=== PATIENT | female | born 1985 | race Caucasian/White ===

== ENCOUNTER 2018-03-10 21:45 | Emergency (ER) | payer SELFPAY ==
[2018-03-10 21:46] VITALS: BP 195/121; PULSE 86; RESP 18; TEMP 36.8; O2SAT 99; BMI 32.3
[2018-03-10 22:26] VITALS: BP 137/114; PULSE 94; RESP 19; O2SAT 97
--- NOTE | 2018-03-10 23:21 | ED.VISSUMM ---
- ER Visit Summary Date of Service: 03/10/18 Chief Complaint: Headache History of Present Illness: The patient is a 32 F with a headache that started earlier today. Around 6 PM she checked her blood pressure and it was high. She had similar symptoms in the past about a year ago and was treated in the emergency department and sent home. She was on home medications but lost her doctor secondary to insurance reasons and is not currently on blood pressure medications. Her blood pressure normally runs in the 130-150/80-90 range. Denies any other associated symptoms. She has had some nausea but denies any other symptoms. Physical Examination: Blood pressure 195/121. Otherwise vitals unremarkable. Head atraumatic. Neck nontender. HEENT exam unremarkable. Cranial nerves grossly intact. Heart regular. Lungs clear. Abdomen soft. Moves all extremities. Normal strength and sensation. Normal cerebellar testing. NIH stroke scale is 0. Skin is normal. Test Results: Patient declined any testing including CT had and laboratory studies. She declined secondary to cost reasons. I advised her that it would be standard care to obtain these tests with her blood pressure this high and with having symptoms. Emergency Department Course and Treatment: Patient was treated with labetalol and will reassess. Repeat blood pressure was 155/101. This represents a 20% reduction. Headache has improved. Patient would like to be discharged. Will start her on HCTZ. I advised her that she will need screening blood work and follow-up with her regular doctor. Patient voiced understanding and agreement. Will return for any new or worsening issues. Treatment Plan: As above Disposition: Discharged Impression: 1. Hypertension 2. Headache This note was generated with [employer] dictation software. It may contain incorrect words, spelling, and punctuation that were not noted in review of the chart prior to signing ED Disposition - Plan for ED Patient: Chief Complaint: Hypertension Referrals: Care Physician,No Primary [Primary Care Provider] -
--- NOTE | 2018-03-10 23:47 | ED.DEP ---
ED Disposition - Plan for ED Patient: Chief Complaint: Hypertension Instructions: ED Hypertension New Begin Tx Prescriptions: Hydrochlorothiazide [Hctz] 25 mg PO DAILY 30 Days #30 tab Referrals: Care Physician,No Primary [Primary Care Provider] -
[2018-03-10 23:57] VITALS: BP 165/105; PULSE 76; RESP 16; O2SAT 98
--- NOTE | 2018-03-10 23:58 | ED.RN ---
REVIEWED D/C INSTRUCTIONS, FOLLOW UP CARE, PRESCRIPTION, AND S/S THAT WOULD WARRANT A RETURN TO THE ED WITH PT. PT VERBALIZED AN UNDERSTANDING AND DENIES FURTHER QUESTIONS FOR THIS RN. PT SKIN P/W/D, RESP EVEN AND UNLABORED, PT A&O X 3, NO DISTRESS NOTED. PT AMBULATED OUT OF ED, GAIT STEADY.
== END 2018-03-11 00:01 | disposition home or self-care (01) ==
LOC: ED 23:20
PROVIDERS: Emergency Provider Emergency Medicine
DX: R51 Headache (principal); I10 Essential (primary) hypertension; F17.210 Nicotine dependence, cigarettes, uncomplicated; R11.0 Nausea
CPT/HCPCS: 96374; 99283; A4216

== ENCOUNTER 2018-03-12 06:10 | Emergency (ER) | payer SELFPAY ==
[2018-03-12 06:12] VITALS: BP 183/114; PULSE 104; RESP 20; TEMP 36.8; O2SAT 97; BMI 34.7
--- NOTE | 2018-03-12 06:21 | EKG12_ITS ---
Test Reason : PALPS Blood Pressure : / mmHG Vent. Rate : 090 BPM Atrial Rate : 090 BPM P-R Int : 134 ms QRS Dur : 086 ms QT Int : 394 ms P-R-T Axes : 076 026 047 degrees QTc Int : 481 ms Normal sinus rhythm Prolonged QT Abnormal ECG Confirmed by CLAUDE CONNOLLY, HELEN ([id number]), magazine editor STEFANIA RESTREPO ([id number]) on 03/15/2018 1:52:59 PM Referred By: THERESA Confirmed By:HELEN ARCE MD
--- NOTE | 2018-03-12 06:21 | CT_ITS ---
STUDY: CT BRAIN WITHOUT CONTRAST REASON FOR EXAM: Female, 32 years old. Uncontrolled hypertension RADIATION DOSAGE (If Supplied By Facility): CTDIvol = ( 44.99 ) mGy, DLP = ( 678 ) mGycm TECHNIQUE: Transaxial CT imaging of the brain was performed without administration of intravenous contrast material. Individualized dose optimization techniques were used for this CT. COMPARISON: None. FINDINGS: Normal soft tissue structures. Normal calvarium. Normal size ventricles and extra-axial spaces for the patient's age. Normal white matter tracts of the cerebral hemispheres. Normal basal ganglia and thalami. Normal brainstem. Normal cerebellum. There is no intracranial hemorrhage. There are no findings of an acute ischemic infarction. Normal visualized paranasal sinuses. CT/Brain/Head without Contrast IMPRESSION: Normal unenhanced CT scan of the brain. No acute findings in the brain Electronically Signed: Delfin Villanueva, at 7:14 EDT Tel , Service support ,
[2018-03-12 06:29] LABS: Absolute Lymphocyte Count 3.69 X10^3/ul (0.83-4.51); Absolute Neutrophil Count 4.2 X10^3/uL (2.0-7.7); Basophil# 0.04 X10^3/uL; Basophil% 0.5 % (0-1); Eosinophil# 0.09 X10^3/uL; Hematocrit 43.5 % (37-47); Hemoglobin 14.8 g/dl (12.0-15.0); Lymphocyte # 3.69 X10^3/ul (4.0); Lymphocyte % 42.8 % (19-41); Mean Corpuscular Hgb 30.2 pg (27.0-32.0); Mean Corpuscular Volume 88.8 fL (81-99); Mean Platelet Vol. 10.2 fl (6.2-12.0); Monocyte# 0.64 X10^3/uL; Monocyte% 7.4 % (0-10); Neutrophil # 4.16 X10^3/uL (2.7-7.7); Neutrophil % 48.2 % (47-70); Platelet Count 351 K/mm3 (150-450); RBC Distribution Width CV 14.2 % (11.6-14.6); RBC Distribution Width SD 45.9 fl (35.1-43.9); White Blood Count 8.6 K/mm3 (4.4-11.0)
[2018-03-12 06:30] LABS: POSITIVE COUNT NO; POSITIVE DIFFERENTIAL NO; POSITIVE MORPHOLOGY NO
[2018-03-12 06:38] VITALS: BP 159/119; PULSE 87; RESP 16; O2SAT 98
[2018-03-12 06:44] LABS: Anion Gap 9 (5-15); BUN 8 mg/dL (7-18); Calcium,Total 8.4 mg/dL (8.5-10.1); Chloride 109 mmol/L (98-107); EST Glomerular Filtration Rate 88 mL/min (>60); Est Glom Filt Rate - Afr Amer 106 mL/min (>60); Estimated Creatinine Clearance 79.11 ml/min; Glucose 78 mg/dL (74-106); Sodium Level 142 mmol/L (136-145)
[2018-03-12] MEDS: Ketorolac 30 MG/ML Syringe IV (07:31)
--- NOTE | 2018-03-12 07:32 | ED.DCSUM_ITS ---
- ER Visit Summary Date of Service: 03/12/18 Chief Complaint: Palpitations, hypertension, headache History of Present Illness: The patient is a 32 F worsening palpitations this morning with elevated blood pressure and headache. Seen 2 days ago in the ED for elevated blood pressure. Patient states given IV blood pressure medicine started on hydrochlorothiazide. She is previously on lisinopril and hydrochlorothiazide in the past however lost insurance therefore cannot continue. Given a doctor to follow-up with however not called. There is no syncopal episodes. No chest pains. No nausea or vomiting. No urinary symptoms. Records reviewed from 2 days ago, reported that patient did not want labs are imagings when they were recommended due to financial concerns. Discussed with the patient, due to her symptoms she is in agreement today. Physical Examination: General: Alert and oriented ?3, no acute distress HEENT: Normocephalic, atraumatic. Moist mucosa membranes Neck: supple, nontender. No meningismus Cardiovascular: Regular rate and rhythm, no murmurs Respiratory: Normal breath sounds, symmetric, no distress Abdomen: Soft, nontender, nondistended Extremities: Nontender, no edema, pulses intact ?4 Neuro: no focal neurological deficits. Test Results: EKG: Sinus rate of [address] or T-wave changes. Hemoglobin 14.8. Creatinine 0.80. CT head no acute process. Emergency Department Course and Treatment: Patient had blood pressure 183/114 on arrival. She is given labetalol 10 mg IV. A pressure 1 and 151/101. Basic labs normal. EKG with palpitations normal. CT head due to headaches were negative. She had no meningismal findings. She given Toradol for headache symptoms. I did add lisinopril to her regimen which was her previous medications. She will take both lisinopril and hydrochlorothiazide, she will keep records of her blood pressure she will follow-up with physician as an outpatient. All questions are answered. Treatment Plan: [] Disposition: Discharge Impression: 1. Elevated blood pressure 2. Cephalgia 3. Palpitations This note was generated with [employer] software. It may contain incorrect words, spelling, and punctuation that were not noted in review of the chart prior to signing ED Disposition - Plan for ED Patient: Disposition: Home or Assisted Living Chief Complaint: Palpitations Diagnosis: Elevated blood pressure, Cephalgia, Palpitations Instructions: ED Palpitations, Discharge Instructions for High Blood Pressure ( Hypertension), Self-Care for Headaches Prescriptions: Lisinopril 20 mg PO DAILY #30 tablet Referrals: Care Physician,No Primary [Primary Care Provider] - Ricardo Antunez DO [STAFF PHYSICIAN] - 3-5 Days
[2018-03-12] MEDS: Lisinopril 20 MG Tablet PO (07:34)
[2018-03-12 08:17] VITALS: BP 138/96; PULSE 65; RESP 16; O2SAT 98
[2018-03-12 08:22] VITALS: BP 143/89; PULSE 85; RESP 16; O2SAT 98
== END 2018-03-12 08:23 | disposition home or self-care (01) ==
PROVIDERS: Emergency Provider Emergency Medicine
DX: I10 Essential (primary) hypertension (principal); R51 Headache; R00.2 Palpitations; Z72.0 Tobacco use
CPT/HCPCS: 70450; 80048; 85025; 93005; 96374; 96375; 99285; A4216

== ENCOUNTER 2018-05-31 12:35 | Emergency (ER) | payer SELFPAY ==
[2018-05-31 12:36] VITALS: BP 184/115; PULSE 113; RESP 18; TEMP 36.6; O2SAT 99; BMI 30.7
[2018-05-31 12:50] VITALS: BP 164/100; PULSE 83; RESP 14; O2SAT 98
--- NOTE | 2018-05-31 12:58 | EKG12_ITS ---
Test Reason : CP Blood Pressure : / mmHG Vent. Rate : 099 BPM Atrial Rate : 099 BPM P-R Int : 116 ms QRS Dur : 086 ms QT Int : 382 ms P-R-T Axes : 078 035 026 degrees QTc Int : 490 ms Normal sinus rhythm Nonspecific ST abnormality Prolonged QT Abnormal ECG Confirmed by JENNIFER CONNOLLY, OLGA ([id number]), editor managing newspaper STEFANIA RESTREPO ([id number]) on 06/04/2018 2:13:56 PM Referred By: EDPHS Confirmed By:OLGA RODRIGUEZ MD
--- NOTE | 2018-05-31 13:00 | RAD_ITS ---
STUDY: X-RAY CHEST REASON FOR EXAM: Female, 33 years old. Chest pain and cough TECHNIQUE: Single AP portable view of the chest. COMPARISON: 2016 FINDINGS: EKG leads overlie the chest The lungs are clear and expanded. There is no demonstrated pleural abnormality. Normal size heart. Normal mediastinum and eliana. Normal visualized pulmonary arteries. Normal visualized aortic arch and descending thoracic aorta. Normal visualized thoracic spine. Normal visualized ribs, clavicles, and shoulders. There is no demonstrated abnormality of the visualized soft tissue structures of the upper abdomen. RAD/Chest 1 View (Portable) IMPRESSION: Normal x-ray examination of the chest. Electronically Signed: Beny Toure MD at 13:17 EDT , Service support ,
[2018-05-31] MEDS: Ketorolac 30 MG/ML Syringe 15 MG IV (13:14)
[2018-05-31 13:18] LABS: Absolute Lymphocyte Count 2.58 X10^3/ul (0.83-4.51); Absolute Neutrophil Count 4.6 X10^3/uL (2.0-7.7); Basophil# 0.03 X10^3/uL; Basophil% 0.4 % (0-1); Eosinophil# 0.03 X10^3/uL; Eosinophils% 0.4 % (0-5); Hematocrit 42.4 % (37-47); Hemoglobin 14.1 g/dl (12.0-15.0); Lymphocyte # 2.58 X10^3/ul (4.0); Lymphocyte % 33.3 % (19-41); Mean Corp Hgb Conc 33.3 g/gl (32-36); Mean Corpuscular Hgb 28.7 pg (27.0-32.0); Mean Corpuscular Volume 86.4 fL (81-99); Mean Platelet Vol. 10.4 fl (6.2-12.0); Monocyte# 0.55 X10^3/uL; Monocyte% 7.1 % (0-10); Neutrophil # 4.56 X10^3/uL (2.7-7.7); Neutrophil % 58.8 % (47-70); POSITIVE COUNT NO; POSITIVE DIFFERENTIAL NO; POSITIVE MORPHOLOGY NO; Platelet Count 309 K/mm3 (150-450); RBC Distribution Width CV 13.8 % (11.6-14.6); RBC Distribution Width SD 43.3 fl (35.1-43.9); Red Blood Count 4.91 M/mm3 (4.2-5.4); White Blood Count 7.8 K/mm3 (4.4-11.0)
[2018-05-31 13:32] LABS: Anion Gap 6 (5-15); BUN 7 mg/dL (7-18); BUN/Creat Ratio 8.5 RATIO (10-20); Calcium,Total 9.2 mg/dL (8.5-10.1); Chloride 109 mmol/L (98-107); Creatinine, Serum 0.82 mg/dL (0.55-1.02); EST Glomerular Filtration Rate 85 mL/min (>60); Est Glom Filt Rate - Afr Amer 102 mL/min (>60); Estimated Creatinine Clearance 86.99 ml/min; Glucose 107 mg/dL (74-106); Potassium 3.3 mmol/L (3.5-5.1); Sodium Level 139 mmol/L (136-145)
[2018-05-31 13:54] LABS: D-Dimer Quantitative (DVT/PE) 0.34 FEU/ug/m (0.27-0.49)
[2018-05-31 15:02] VITALS: BP 138/80; PULSE 90; RESP 14; O2SAT 99
--- NOTE | 2018-05-31 15:12 | ED.DCSUM_ITS ---
- ER Visit Summary Date of Service: 05/31/18 Chief Complaint: Chest pain History of Present Illness: The patient is a 33 F who presents with chest pain that started earlier today it is non-pleuritic and sharp and stabbing it is right-sided parasternal region. No radiation. No fever chills no cough no shortness of breath. Physical Examination: Not appear in acute distress. Moist mucous membranes, no obvious facial deformity No C-spine tenderness supple neck. Regular rate and rhythm without any obvious murmurs there is right-sided chest wall pain to palpation. Clear lungs bilaterally speaking in full sentences without any obvious respiratory distress Abdomen soft and nontender no guarding or rebound Moves all extremities without any difficulty or pain. Skin does not show any obvious rashes or lesions, no trauma. Alert oriented ?3 with no gross focal deficit Emergency Department Course and Treatment: Emergency department workup including x-ray and d-dimer are negative. She has a normal troponin and normal EKG with a heart score 0. She will be discharged with a inflammatories. Impression: Chest wall pain This note was generated with [employer] dictation software. It may contain incorrect words, spelling, and punctuation that were not noted in review of the chart prior to signing ED Disposition - Plan for ED Patient: Disposition: Home or Assisted Living Chief Complaint: Chest Pain Instructions: ED Strain Chest Wall Ch Prescriptions: Naproxen [Naprosyn] 500 mg PO BID PRN #20 tab Referrals: Care Physician,No Primary [Primary Care Provider] - 3-5 Days
[2018-05-31 15:42] VITALS: BP 146/80; PULSE 80; RESP 14; O2SAT 99
== END 2018-05-31 15:44 | disposition home or self-care (01) ==
PROVIDERS: Emergency Provider Emergency Medicine
DX: R07.89 Other chest pain (principal); I10 Essential (primary) hypertension; Z72.0 Tobacco use
CPT/HCPCS: 71045; 80048; 84484; 85025; 85379; 93005; 96374; 99284; J7030; A4216

== ENCOUNTER 2019-01-02 19:25 | Emergency (ER) | payer SELFPAY ==
[2019-01-02] VITALS (9 sets, daily range): BP systolic 154–222; BP diastolic 90–119; PULSE 79–127; RESP 16–25; TEMP 36.7; O2SAT 96–99; BMI 31.6
--- NOTE | 2019-01-02 19:34 | EKG12_ITS ---
Test Reason : Blood Pressure : / mmHG Vent. Rate : 122 BPM Atrial Rate : 122 BPM P-R Int : 128 ms QRS Dur : 086 ms QT Int : 336 ms P-R-T Axes : 074 050 057 degrees QTc Int : 478 ms Sinus tachycardia Possible Left atrial enlargement Nonspecific ST and T wave abnormality Abnormal ECG Confirmed by CLAUDE CONNOLLY, HELEN ([id number]), advertising editor STEFANIA RESTREPO ([id number]) on 01/06/2019 1:48:54 PM Referred By: CONNIE Confirmed By:HELEN ARCE MD
[2019-01-02] MEDS: cloNIDine HCl 0.1 MG Tablet 0.2 MG PO ×2 (20:25→21:36)
--- NOTE | 2019-01-02 20:26 | CT_ITS ---
STUDY: CT BRAIN WITHOUT CONTRAST REASON FOR EXAM: Female, 33 years old. Headache and elevated blood pressure. RADIATION DOSAGE (If Supplied By Facility): CTDIvol = ( 44.99 ) mGy, DLP = ( 731.43 ) mGycm TECHNIQUE: Transaxial CT imaging of the brain was performed without administration of intravenous contrast material. Individualized dose optimization techniques were used for this CT. COMPARISON: Prior brain CT exam of March 12, 2018 FINDINGS: Normal soft tissue structures. Normal calvarium. Normal size ventricles and extra-axial spaces for the patient's age. Normal white matter tracts of the cerebral hemispheres. Normal basal ganglia and thalami. Normal brainstem. Normal cerebellum. There is no intracranial hemorrhage. There are no findings of an acute ischemic infarction. Normal visualized paranasal sinuses. CT/Brain/Head without Contrast IMPRESSION: Normal unenhanced CT scan of the brain. Electronically Signed: Rebecca Galvan MD at 21:13 EST , Service support ,
--- NOTE | 2019-01-02 20:27 | ED.VISSUMM ---
- ER Visit Summary Date of Service: 01/02/19 Chief Complaint: High blood pressure History of Present Illness: The patient is a 33 F presenting with high blood pressure. Patient states she has been taking her blood pressure at home and has been running with a systolic of 160-180. She states yesterday was 173/134. She has had intermittent headaches. She denies chest pain. She states she is supposed to be on hydrochlorothiazide/lisinopril but has not had insurance for several months. States she has not been taking these medications for several months. She has a history of SVT, hypertension. She is a smoker. She denies chest pain or shortness of breath. Physical Examination: Blood pressure 222/113, temperature 98, heart rate 127, respiratory rate 17. Pulse ox 99% on room air. Alert no acute distress. HEENT exam is unremarkable. Neck is supple. Lungs are clear and equal bilaterally. Heart is regular rate and rhythm. Abdomen is soft nontender nondistended. Extremities are unremarkable. Skin is warm and dry. No focal neurologic deficit. Normal strength and sensation Remainder of exam is unremarkable. Emergency Department Course and Treatment: Patient given IV fluids, clonidine. CT head shows no acute process. EKG is sinus rate of 122. On reevaluation her blood pressure is 180/110, heart rate 109. She was given additional dose of clonidine. On reevaluation, her blood pressure is 172/90, heart rate 80. Patient is resting comfortably in the ED. She is given prescription for hydrochlorothiazide/lisinopril. She is advised to follow-up with Rema Tello. Advised importance of follow-up. Patient understands. Advised return to ED if worsening complaints. Disposition: Discharge home Impression: Hypertension This note was generated with [employer] dictation software. It may contain incorrect words, spelling, and punctuation that were not noted in review of the chart prior to signing ED Disposition - Plan for ED Patient: Instructions: ED HTN Established Prescriptions: Lisinopril/Hydrochlorothiazide [Lisinopril-Hctz 10-12.5 mg Tab] 1 each PO DAILY #30 tablet Referrals: Rema Tello [NON-STAFF] -
[2019-01-02] MEDS: 0.9% Normal Saline 1,000 ML 999 ML IV (20:41)
--- NOTE | 2019-01-02 22:34 | ED.DEP ---
ED Disposition - Plan for ED Patient: Instructions: ED HTN Established Prescriptions: Lisinopril/Hydrochlorothiazide [Lisinopril-Hctz 10-12.5 mg Tab] 1 each PO DAILY #30 tablet Referrals: Rema Tello [NON-STAFF] -
== END 2019-01-02 22:53 | disposition home or self-care (01) ==
LOC: ED 19:53
PROVIDERS: Emergency Provider Emergency Medicine
DX: I10 Essential (primary) hypertension (principal); I47.1 Supraventricular tachycardia; F17.200 Nicotine dependence, unspecified, uncomplicated; Z79.899 Other long term (current) drug therapy
CPT/HCPCS: 70450; 93005; 96360; 99283; J7030

== ENCOUNTER 2019-02-20 01:22 | Emergency (ER) | payer SELFPAY ==
[2019-01-02 19:26] VITALS: BMI 31.6
[2019-02-20 01:23] VITALS: BP 179/124; PULSE 92; RESP 20; TEMP 37.3; O2SAT 98; BMI 33.9
--- NOTE | 2019-02-20 02:00 | ED.VISSUMM ---
- ER Visit Summary Date of Service: 02/20/19 Chief Complaint: Cough, sore throat History of Present Illness: The patient is a 33 F with congestion, bilateral ear pain, sore throat for the past 5 days and continuing to worsen. Patient's been taking NyQuil and [facility] cold without improvement. She reports minimal cough. Physical Examination: Blood pressure on arrival is 179/124, temperature 99.1, heart rate 92, respiratory rate 20, pulse ox 98% on room air. Patient is sitting upright in bed. She is nontoxic appearing. Head neck examination reveals TMs to be clear bilaterally. She has minimal sinus tenderness over the frontal and maxillary sinuses. She has 3+ tonsils bilaterally. Uvula is midline. She has bilateral anterior cervical lymphadenopathy. She is tolerating secretions well and has a strong voice. Heart is regular rate and rhythm. Lung sounds are clear. Abdomen is soft nontender. Test Results: [] Emergency Department Course and Treatment: Patient be treated with a course of Zithromax for her pharyngitis. Patient has known history of hypertension and states that she does not have insurance and cannot sign up for insurance until September. She states she makes too much money to go to [facility]. I wrote her a prescription for her blood pressure medication, lisinopril/HCTZ. I have left a phone number with social work to contact her to try to help her get her medications. Treatment Plan: [] Disposition: Discharge Impression: 1. Pharyngitis 2. Hypertension This note was generated with [employer] dictation software. It may contain incorrect words, spelling, and punctuation that were not noted in review of the chart prior to signing ED Disposition - Plan for ED Patient: Disposition: Home or Assisted Living Instructions: ED HTN Established, ED Strep Pharyngitis Poss Prescriptions: Azithromycin [Zithromax] 250 mg PO DAILY #4 tablet Lisinopril/Hydrochlorothiazide [Lisinopril-Hctz 10-12.5 mg Tab] 1 each PO DAILY #30 tablet Referrals: Addie Whaley MD [STAFF PHYSICIAN] -
[2019-02-20] MEDS: Azithromycin 250 MG Tablet 500 MG PO (02:09)
[2019-02-20 02:10] VITALS: BP 160/125; PULSE 96; RESP 17; O2SAT 97
[2019-02-20] MEDS: Lisinopril 10 MG Tablet PO (02:13)
[2019-02-20] MEDS: hydroCHLOROthiazide 12.5mg 12.5 MG PO (02:13)
--- NOTE | 2019-02-20 14:45 | CM.ED ---
SOCIAL WORK REFERRED BY DR. FARIAS FOR RX ASSISTANCE FOLLOW UP CALL MADE TO PATIENT. NO ANSWER. LEFT MESSAGE WITH THIS WORKER'S CALL BACK INFORMATION. GALEN GARCIA, POUCH MAKER, SALES ACCOUNT ASSOCIATE.
== END 2019-02-20 02:15 | disposition home or self-care (01) ==
LOC: ED 02:09
PROVIDERS: Emergency Provider Emergency Medicine
DX: J02.9 Acute pharyngitis, unspecified (principal); I10 Essential (primary) hypertension; R05 Cough; H92.03 Otalgia, bilateral; Z79.899 Other long term (current) drug therapy; Z87.891 Personal history of nicotine dependence
CPT/HCPCS: 99283

== ENCOUNTER 2019-04-13 18:45 | Emergency (ER) | payer SELFPAY ==
[2019-04-13 18:45] VITALS: BP 210/131; PULSE 119; RESP 18; TEMP 36.9; O2SAT 99; BMI 31.8
[2019-04-13 19:05] VITALS: BP 172/114; PULSE 95; RESP 20; O2SAT 99
--- NOTE | 2019-04-13 20:30 | ED.RN ---
AT 2020: PT AND SPOUSE CAME OUT STATING THEY WERE LEAVING. PT WAS NOT SEEN BY MD, DR. STARR WAS ON HER WAY IN TO SEE PT.
--- NOTE | 2019-04-13 20:36 | ED.VISSUMM ---
- ER Visit Summary Date of Service: 04/13/19 patient eloped from the ED prior to evaluation. This note was generated with [employer] dictation software. It may contain incorrect words, spelling, and punctuation that were not noted in review of the chart prior to signing ED Disposition - Plan for ED Patient: Referrals: Care Physician,No Primary [Primary Care Provider] -
== END 2019-04-13 20:20 | disposition left against medical advice (07) ==
PROVIDERS: Emergency Provider Emergency Medicine
DX: I10 Essential (primary) hypertension (principal); Z53.21 Procedure and treatment not carried out due to patient leaving prior to being seen by health care provider
CPT/HCPCS: 99281

== ENCOUNTER 2019-07-30 07:47 | Emergency (ER) | payer SELFPAY ==
[2019-07-30] VITALS (7 sets, daily range): BP systolic 116–195; BP diastolic 83–131; PULSE 74–96; RESP 16–18; TEMP 36; O2SAT 97–100; BMI 30.9
--- NOTE | 2019-07-30 08:06 | EKG12_ITS ---
Test Reason : HYPOGLYCEMIA Blood Pressure : / mmHG Vent. Rate : 086 BPM Atrial Rate : 086 BPM P-R Int : 130 ms QRS Dur : 086 ms QT Int : 400 ms P-R-T Axes : 080 039 029 degrees QTc Int : 478 ms Normal sinus rhythm Possible Left atrial enlargement Borderline ECG Confirmed by KEYLA CONNOLLY, COOPER ([id number]), general expeditor RICARDO ORTIZ ([id number]) on 08/01/2019 10:22:25 A M Referred By: WILLEM Confirmed By:LEIGH RAMIRES MD
--- NOTE | 2019-07-30 08:07 | ED.DCSUM_ITS ---
History of Present Illness Chief Complaint: Hypertension Informant: Patient Onset: - - Chronic hypertension, worse the last for 5 days. Narrative: Patient presents with increased hypertension. She is a history of hypertension but has not had insurance and therefore not taken her medications for quite some time. She checks her blood pressure at home. She states her normal is around 160/110. Last for 5 days her systolic blood pressure has been in the 190s. She states she does not have a headache or vision changes. She feels like she was hit by a truck. This morning she had tingling in both hands and both feet and that prompted her visit today. - Past Medical History (1) Hypertension Status: Chronic Past Medical History - Allergies and Home Meds Allergies/Adverse Reactions: Allergies No Known Allergies Allergy (Verified 04/13/19 18:46) Primary Care Physician: Care Physician,No Primary [Primary Care Provider] - Prior records reviewed: Yes Past Medical History: - - Reviewed Surgical History: hysterectomy Smoking Status: Current every day smoker Review of Systems General: Denies: Chills, Fever Eyes: Denies: Visual changes - bilaterally ENT: Denies: Bilateral ear pain Cardiovascular: Denies: Chest pain, Palpitations Respiratory: Denies: Dyspnea, Cough Gastrointestinal: Denies: Abdominal pain, Nausea, Vomiting Genitourinary: Denies: Dysuria Musculoskeletal: Denies: Neck pain, Back pain Skin: Denies: Wounds Neurological: Reports: Parasthesia. Denies: Headache, Weakness Hematologic: Denies: Easy bruising Allergy: Denies: Uticaria Physical Exam Vital Signs/Narrative: Vital Signs Temp Pulse Resp BP Pulse Ox 07/30/19 07:48 96.8 F L 96 18 192/127 H 99 Inital Vital Signs reviewed: Yes General: Well nourished, Well developed Head: Normocephalic ENT: Moist mucous membranes Neck: Supple Cardiovascular: Regular rate, Regular rhythm Respiratory: No distress, CTA bilaterally Abdomen: Soft, Nontender Extremities: Nontender Skin: Normal color, No rash Neurological: Alert, Oriented x3, Normal Strength Psychological: Normal affect Diagnostic/Tx/Re-eval Impressions Chest X-Ray 07/30/19 08:25 IMPRESSION: Normal x-ray examination of the chest. Electronically Signed: Winston Lamb, at 8:48 EDT , Service support , 07/30/19 08:25 Chest 1 View (Portable) [RAD] Stat Laboratory Results 07/30/19 07/30/19 07/30/19 08:05 08:05 09:10 WBC 8.0 RBC 5.22 Hgb 15.4 H Hct 45.5 MCV 87.2 MCH 29.5 MCHC 33.8 RDW Std Deviation 43.6 RDW Coeff of Shanika 13.7 Plt Count 293 MPV 10.8 Immature Gran % (Auto) 0.100 Neut % (Auto) 62.5 Lymph % (Auto) 30.9 Johnston % (Auto) 5.4 Eos % (Auto) 0.6 Baso % (Auto) 0.5 Absolute Neuts (auto) 5.0 Absolute Lymphs (auto) 2.48 Nucleated RBC % 0 Sodium 139 Potassium 3.4 L Chloride 107 Carbon Dioxide 26.0 Anion Gap 6 BUN 5 L Creatinine 0.81 Estim Creat Clear Calc 87.23 Est GFR (MDRD) Af Amer 103 Est GFR (MDRD) Non-Af 85 BUN/Creatinine Ratio 6.1 L Glucose 82 Calcium 8.9 Urine Color Yellow Urine Clarity Sl. Cloudy Urine pH 7.0 Ur Specific [place] 1.010 Urine Protein Negative Urine Glucose (UA) Normal Urine Ketones Negative Urine Occult Blood Negative Urine Nitrite Negative Urine Bilirubin Negative Urine Urobilinogen Normal Ur Leukocyte Esterase Negative Urine RBC 0 SEEN Urine WBC 0 SEEN Ur Squamous Epith Cells 0-5 SEEN Urine Bacteria 0 SEEN Urine Mucus 0 SEEN - EKG Initial EKG Interpretation: Sinus Rhythm - Sinus at 86 with no acute ischemia. Possible left atrial enlargement is noted. - Medical Decision Making Patient was given 10 of IV labetalol followed by 20 mg. Blood pressure did not significantly change with this. She is given 0.2 mg's of p.o. clonidine. Repeat blood pressure is in the high 150s systolic. Patient was also given p.o. potassium for slightly decreased K. Patient was seen by social work and given resources to help obtain insurance coverage. She reports that she makes too much money to qualify for Medicaid. My suspicion is that she will be over the income limit for Rema Tello. Dr. Petty is the next doc on no doc list. I will speak with his coverage and help arrange follow-up. She will be given a prescription for clonidine and will monitor her blood pressures. ED Disposition - Plan for ED Patient: Disposition: Home or Assisted Living Diagnosis: Hypertension Instructions: HYPERTENSION, New (Begin Treatment) Prescriptions: Clonidine HCl 0.2 mg PO BID #60 tablet Referrals: Maico Petty MD [STAFF PHYSICIAN] - 1 Week
[2019-07-30 08:21] LABS: Absolute Lymphocyte Count 2.48 X10^3/uL (0.83-4.51); Basophil# 0.04 X10^3/uL; Basophil% 0.5 % (0-1); Eosinophil# 0.05 X10^3/uL; Eosinophils% 0.6 % (0-5); Hematocrit 45.5 % (37-47); Hemoglobin 15.4 g/dL (12.0-15.0); Lymphocyte # 2.48 X10^3/ul (4.0); Lymphocyte % 30.9 % (19-41); Mean Corp Hgb Conc 33.8 g/dL (32-36); Mean Corpuscular Hgb 29.5 pg (27.0-32.0); Mean Corpuscular Volume 87.2 fL (81-99); Mean Platelet Vol. 10.8 fl (6.2-12.0); Monocyte# 0.43 X10^3/uL; Monocyte% 5.4 % (0-10); NRBC Flagged by Analyzer 0 % (0-5); Neutrophil # 5.01 X10^3/uL (2.7-7.7); Neutrophil % 62.5 % (47-70); Platelet Count 293 K/mm3 (150-450); RBC Distribution Width CV 13.7 % (11.6-14.6); RBC Distribution Width SD 43.6 fl (35.1-43.9); Red Blood Count 5.22 M/mm3 (4.2-5.4)
--- NOTE | 2019-07-30 08:25 | RAD_ITS ---
STUDY: X-RAY CHEST REASON FOR EXAM: Female, 34 years old. Chest pain. TECHNIQUE: Single AP portable view of the chest. COMPARISON: Comparison is made with prior study dated May 31, 2018. FINDINGS: The lungs are clear and expanded. There is no demonstrated pleural abnormality. Normal size heart. Normal mediastinum and eliana. Normal visualized pulmonary arteries. Normal visualized aortic arch and descending thoracic aorta. Normal visualized thoracic spine. Normal visualized ribs, clavicles, and shoulders. There is no demonstrated abnormality of the visualized soft tissue structures of the upper abdomen. RAD/Chest 1 View (Portable) IMPRESSION: Normal x-ray examination of the chest. Electronically Signed: Winston Lamb, at 8:48 EDT , Service support ,
[2019-07-30 08:41] LABS: Anion Gap 6 (5-15); BUN 5 mg/dL (7-18); BUN/Creat Ratio 6.1 RATIO (10-20); Calcium,Total 8.9 mg/dL (8.5-10.1); Chloride 107 mmol/L (98-107); Creatinine, Serum 0.81 mg/dL (0.55-1.02); EST Glomerular Filtration Rate 85 mL/min (>60); Est Glom Filt Rate - Afr Amer 103 mL/min (>60); Estimated Creatinine Clearance 87.23 ml/min; Glucose 82 mg/dL (74-106); Potassium 3.4 mmol/L (3.5-5.1); Sodium Level 139 mmol/L (136-145)
[2019-07-30 09:16] LABS: Bacteria 0 SEEN /hpf (None Seen); Mucous, Urine 0 SEEN /hpf (<or=2+); Red Blood Cells-Urine 0 SEEN /hpf (0-5); White Blood Cells 0 SEEN /hpf (0-5)
[2019-07-30 09:22] LABS: Color, Urine Yellow (Yellow); Glucose, Dipstick Normal (Normal); Ketone-Dipstick Negative (Negative); Leukocyte Esterase-Dipstick Negative /ul (Negative); Nitrite-Dipstick Negative (Negative); Occult Blood-Urine Negative /ul (Negative); Protein-Dipstick Negative (Negative); Urine Bilirubin Dipstick Negative (Negative); Urine Clarity Sl. Cloudy (Clear); Urine Urobilinogen Normal (Normal)
[2019-07-30 09:28] LABS: Squamous Epithelial Cells - UA 0-5 SEEN /hpf (5-10)
[2019-07-30] MEDS: cloNIDine HCl 0.1 MG Tablet 0.2 MG PO (09:56)
--- NOTE | 2019-07-30 10:39 | CASEMGMT ---
Case Management Progress Note: Referral placed d/t patient not having health insurance and has not been taking antihypertensives, presents to ER with Hypertension. This resume writer met with patient at bedside, introduced self and role. Patient states that she does work but does not have health insurance, states that her work does not offer it. Discussed applying for [employer] and states that her kids have it but she does not qualify for it. This resume writer discussed and provided resources for the following: [facility], [employer], [employer], Given multiple Rx coupon cards, and discussed going on the Medication manufacturers website for coupons/discounts, and also discussed [employer] possibly helping. Patient denied any further questions or concerns. Maryellen Bravo RNCM
== END 2019-07-30 12:22 | disposition home or self-care (01) ==
PROVIDERS: Emergency Provider Emergency Medicine
DX: I10 Essential (primary) hypertension (principal); R20.2 Paresthesia of skin; F17.200 Nicotine dependence, unspecified, uncomplicated; Z79.899 Other long term (current) drug therapy; Z90.710 Acquired absence of both cervix and uterus
CPT/HCPCS: 71045; 80048; 81001; 85025; 93005; 96374; 96376; 99285; A4216

== ENCOUNTER 2019-09-10 13:30 | Emergency (ER) | payer SELFPAY ==
[2019-07-30 07:48] VITALS: BMI 30.9
[2019-09-10 13:31] VITALS: BP 149/107; PULSE 96; RESP 15; TEMP 36.9; O2SAT 100; BMI 28.3
[2019-09-10 13:55] VITALS: RESP 16
--- NOTE | 2019-09-10 14:03 | ED.RN ---
PATIENT STATES DIZZINESS HAS BEEN GOING ON FOR ABOUT 6 DAYS NOW. PATIENT STATES SHE HAS NOT FELT RIGHT SINCE THE END OF . PATIENT STATES SHE HAS NOT HAD AN APPETITE AND HAS LOST 28 LBS SINCE THE END OF .
--- NOTE | 2019-09-10 14:22 | EKG12_ITS ---
Test Reason : DIZZINESS Blood Pressure : / mmHG Vent. Rate : 061 BPM Atrial Rate : 061 BPM P-R Int : 124 ms QRS Dur : 086 ms QT Int : 486 ms P-R-T Axes : 068 021 018 degrees QTc Int : 489 ms Normal sinus rhythm Prolonged QT Abnormal ECG Confirmed by CLAUDE CONNOLLY, HELEN ([id number]), purchasing expeditor RICARDO ORTIZ ([id number]) on 09/16/2019 2:17:46 PM Referred By: ANANT Confirmed By:HELEN ARCE MD
[2019-09-10] MEDS: 0.9% Normal Saline 1,000 ML 1000 ML IV (14:39)
[2019-09-10 14:47] LABS: Red Blood Cells-Urine 0 SEEN /hpf (0-5); White Blood Cells 0 SEEN /hpf (0-5)
[2019-09-10 14:48] LABS: Internal QC Validated? YES +Cl - CLEAR BKGD
[2019-09-10 14:50] LABS: Absolute Lymphocyte Count 2.34 X10^3/uL (0.83-4.51); Absolute Neutrophil Count 3.8 X10^3/uL (2.0-7.7); Basophil# 0.04 X10^3/uL; Basophil% 0.6 % (0-1); Eosinophil# 0.03 X10^3/uL; Eosinophils% 0.5 % (0-5); Hematocrit 43.3 % (37-47); Hemoglobin 14.8 g/dL (12.0-15.0); Lymphocyte # 2.34 X10^3/ul (4.0); Lymphocyte % 35.4 % (19-41); Mean Corp Hgb Conc 34.2 g/dL (32-36); Mean Corpuscular Hgb 29.4 pg (27.0-32.0); Mean Corpuscular Volume 85.9 fL (81-99); Mean Platelet Vol. 11.1 fl (6.2-12.0); Monocyte# 0.42 X10^3/uL; Monocyte% 6.4 % (0-10); NRBC Flagged by Analyzer 0 % (0-5); Neutrophil # 3.77 X10^3/uL (2.7-7.7); Neutrophil % 56.9 % (47-70); Platelet Count 249 K/mm3 (150-450); RBC Distribution Width CV 13.7 % (11.6-14.6); RBC Distribution Width SD 42.8 fl (35.1-43.9); Red Blood Count 5.04 M/mm3 (4.2-5.4); White Blood Count 6.6 K/mm3 (4.4-11.0)
[2019-09-10 14:52] LABS: Pregnancy, Urine Negative Negative
[2019-09-10 14:53] LABS: Color, Urine Yellow (Yellow); Glucose, Dipstick Normal (Normal); Ketone-Dipstick 50 mg/dl (Negative); Leukocyte Esterase-Dipstick Negative /ul (Negative); Nitrite-Dipstick Negative (Negative); Occult Blood-Urine Negative /ul (Negative); Protein-Dipstick Negative (Negative); Specific Gravity, Urine 1.015 (1.002-1.030); Urine Bilirubin Dipstick Negative (Negative); Urine Clarity Sl. Cloudy (Clear); Urine Urobilinogen Normal (Normal)
[2019-09-10 14:56] LABS: Bacteria RARE /hpf (None Seen); Mucous, Urine RARE /hpf (<or=2+); Squamous Epithelial Cells - UA 5-10 SEEN /hpf (5-10)
[2019-09-10 15:06] LABS: ALB/GLOB Ratio 1.1 RATIO (0.9-2.4); AST(SGOT) 9 U/L (15-37); Alanine Aminotransfer ALT/SGPT 18 U/L (13-56); Alkaline Phosphatase 58 U/L (45-117); Anion Gap 10 (5-15); BUN 6 mg/dL (7-18); BUN/Creat Ratio 7.2 RATIO (10-20); Calcium,Total 8.8 mg/dL (8.5-10.1); Chloride 105 mmol/L (98-107); Creatinine, Serum 0.84 mg/dL (0.55-1.02); EST Glomerular Filtration Rate 82 mL/min (>60); Est Glom Filt Rate - Afr Amer 100 mL/min (>60); Estimated Creatinine Clearance 84.11 ml/min; Globulin 3.6 g/dL (2.2-4.2); Glucose 80 mg/dL (74-106); Lipase 35 U/L (73-393); Potassium 3.1 mmol/L (3.5-5.1); Protein, Total 7.6 g/dL (6.4-8.2); Sodium Level 140 mmol/L (136-145)
--- NOTE | 2019-09-10 15:37 | ED.VIS.GEN ---
History of Present Illness Chief Complaint: Dizziness Informant: Patient Onset: Month(s) - 1 month Context: Gradual Onset Timing: Continuous Quality: lightheaded Location: head Current Severity: Mild Maximum Severity: Mild Worsened by: nothing Relieved by: nothing Associated Symptoms: Denies Narrative: 34-year-old female with a past medical history of hypertension currently on clonidine presents to the emergency department with lightheadedness. Patient states that she has had a lot of discomfort when she eats and drinks in her epigastric area that she describes as burning. She is also also had belching and feeling full with eating only small amounts of food. She is not had any vomiting or diarrhea. No abdominal pain or back pain. No urinary symptoms. No chest pain or shortness of breath. No fevers. No palpitations. No leg pain or swelling. She has not been lightheaded or dizzy. She does have a history of GERD but is currently untreated for it. Rest of review of systems negative. Prior similar symptoms: No Recent Illness/Hospitalization: No Past Medical History - Allergies and Home Meds Allergies/Adverse Reactions: Allergies No Known Allergies Allergy (Verified 09/10/19 13:34) Primary Care Physician: Care Physician,No Primary [Primary Care Provider] - Prior records reviewed: Yes Past Medical History: - - Hypertension Surgical History: hysterectomy Lives: Alone Smoking Status: Light Smoker (<10/day) Review of Systems All systems negative except as indicated General: Denies: Chills, Fever Eyes: Denies: Visual changes - left, Visual changes - right ENT: Denies: Bilateral ear pain Cardiovascular: Denies: Chest pain Respiratory: Denies: Dyspnea Gastrointestinal: Reports: Nausea. Denies: Abdominal pain, Vomiting, Diarrhea, Constipation, Melena, Hematochezia Genitourinary: Denies: Dysuria, Hematuria, Frequency Musculoskeletal: Denies: Neck pain, Back pain Skin: Denies: Rash Neurological: Denies: Headache, Weakness, Parasthesia, Numbness Physical Exam Vital Signs/Narrative: Vital Signs Temp Pulse Resp BP Pulse Ox 09/10/19 13:55 16 09/10/19 13:31 98.5 F 96 15 149/107 H 100 Inital Vital Signs reviewed: Yes General: Well nourished, Well developed, No Acute Distress Head: Normocephalic, Atraumatic Eyes: Perrl, EOMI ENT: Moist mucous membranes, No rhinorrhea Neck: Supple, Nontender, No lymphadenopathy, No JVD Cardiovascular: Regular rate, Regular rhythm, No murmurs Respiratory: No distress, CTA bilaterally, Chest nontender Abdomen: Soft, Nontender, Nondistended, Normal bowel sounds, No masses Back: Nontender, Normal Inspection Extremities: Nontender, No edema Skin: Normal color, No rash Neurological: Alert, Oriented x3, Cranial nerves II-XII grossly intact, Normal Strength, Normal Sensation, Normal DTR, Normal Gait Psychological: Normal affect Diagnostic/Tx/Re-eval - EKG Initial EKG Interpretation: Sinus Rhythm, No Acute Injury Pattern Prior: No Prior - Medical Decision Making EKG was normal sinus rhythm. Rate of 61 bpm. Normal intervals and no ectopy. No previous EKGs available for comparison. Patient was given IV fluids. CBC, CMP, lipase unremarkable. Urinalysis unremarkable. Patient feels better after fluids. Repeat neurological exam nonfocal. Patient ambulates. She is not lightheaded or dizzy and does ambulate normally. Patient will be discharged home. I will start her on omeprazole for her symptoms of GERD. Return precautions given and advised to follow-up in 2 days with primary care physician. ED Disposition - Plan for ED Patient: Disposition: Home or Assisted Living Diagnosis: Lightheadedness Instructions: NEAR SYNCOPE, Unknown Prescriptions: Omeprazole 0 mg PO DAILY #30 capsule. Prescription Printed Referrals: Care Physician,No Primary [Primary Care Provider] -
[2019-09-10 15:39] VITALS: RESP 16
[2019-09-10 15:53] VITALS: BP 124/77; PULSE 62; RESP 15; O2SAT 97
== END 2019-09-10 15:53 | disposition home or self-care (01) ==
PROVIDERS: Emergency Provider Physician Assistant Medical
DX: R42 Dizziness and giddiness (principal); R11.0 Nausea; I10 Essential (primary) hypertension; F17.200 Nicotine dependence, unspecified, uncomplicated
CPT/HCPCS: 80053; 81001; 81025; 83690; 85025; 93005; 96360; 99283; J7030; A4216

== ENCOUNTER 2019-09-26 08:24 | Emergency (ER) | payer SELFPAY ==
[2019-09-26 08:25] VITALS: BP 170/119; PULSE 108; RESP 16; TEMP 36.2; O2SAT 98; BMI 27.3
--- NOTE | 2019-09-26 08:39 | EKG12_ITS ---
Test Reason : SVT Blood Pressure : / mmHG Vent. Rate : 110 BPM Atrial Rate : 110 BPM P-R Int : 142 ms QRS Dur : 086 ms QT Int : 358 ms P-R-T Axes : 077 046 007 degrees QTc Int : 484 ms Sinus tachycardia Biatrial enlargement ST & T wave abnormality, consider inferior ischemia Abnormal ECG Confirmed by CLAUDE CONNOLLY, HELEN ([id number]), dictionary editor JOLLY IVEY ([id number]) on 09/29/2019 9:37:20 AM Referred By: ARUN Confirmed By:HELEN ARCE MD
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
[2019-09-26 09:18] LABS: Anion Gap 10 (5-15); BUN 5 mg/dL (7-18); BUN/Creat Ratio 6.7 RATIO (10-20); Calcium,Total 8.8 mg/dL (8.5-10.1); Chloride 109 mmol/L (98-107); Creatinine, Serum 0.74 mg/dL (0.55-1.02); EST Glomerular Filtration Rate 94 mL/min (>60); Est Glom Filt Rate - Afr Amer 114 mL/min (>60); Estimated Creatinine Clearance 95.48 ml/min; Glucose 87 mg/dL (74-106); Potassium 2.9 mmol/L (3.5-5.1); Sodium Level 144 mmol/L (136-145)
[2019-09-26] MEDS: cloNIDine HCl 0.2 MG Tablet PO (10:49)
[2019-09-26 10:50] VITALS: BP 142/99; PULSE 91; RESP 19; O2SAT 97
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
== END 2019-09-26 12:17 | disposition home or self-care (01) ==
PROVIDERS: Emergency Provider Emergency Medicine
DX: I47.1 Supraventricular tachycardia (principal); I10 Essential (primary) hypertension; M25.562 Pain in left knee; M25.561 Pain in right knee; F43.9 Reaction to severe stress, unspecified; R31.9 Hematuria, unspecified; F17.200 Nicotine dependence, unspecified, uncomplicated; Z79.899 Other long term (current) drug therapy; Z90.710 Acquired absence of both cervix and uterus
CPT/HCPCS: 36415; 80048; 93005; 99283

== ENCOUNTER 2020-05-28 00:56 | Emergency (ER) | payer SELFPAY ==
[2020-05-28 00:58] VITALS: BP 192/120; PULSE 107; RESP 15; TEMP 36.9; O2SAT 99; BMI 32.0
[2020-05-28 01:05] VITALS: BP 192/120; PULSE 107; RESP 15; O2SAT 98
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
[2020-05-28] MEDS: Diphth,Pertuss(Acell),Tet Vac 0.5 ML Vial IM (01:57)
[2020-05-28] MEDS: oxyCODONE 5 MG Tablet PO (02:39)
[2020-05-28 03:43] VITALS: BP 160/88; PULSE 90; RESP 16; O2SAT 94
== END 2020-05-28 03:44 | disposition home or self-care (01) ==
PROVIDERS: Emergency Provider Emergency Medicine
DX: S01.01XA Laceration without foreign body of scalp, initial encounter (principal); S06.0X0A Concussion without loss of consciousness, initial encounter; S30.811A Abrasion of abdominal wall, initial encounter; S90.511A Abrasion, right ankle, initial encounter; Z23 Encounter for immunization; V86.55XA Driver of 3- or 4- wheeled all-terrain vehicle (ATV) injured in nontraffic accident, initial encounter; Y93.9 Activity, unspecified; Y92.9 Unspecified place or not applicable; Y99.9 Unspecified external cause status; I10 Essential (primary) hypertension; Z79.899 Other long term (current) drug therapy; Z90.710 Acquired absence of both cervix and uterus; Z87.891 Personal history of nicotine dependence
CPT/HCPCS: 12002; 70450; 90471; 90715; 99283

== ENCOUNTER 2020-06-01 10:58 | Emergency (ER) | payer SELFPAY ==
[2020-06-01 10:59] VITALS: BP 190/118; PULSE 104; RESP 16; TEMP 36.5; O2SAT 98; BMI 26.6
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
== END 2020-06-01 11:35 | disposition home or self-care (01) ==
PROVIDERS: Emergency Provider Emergency Medicine
DX: T81.33XA Disruption of traumatic injury wound repair, initial encounter (principal); S01.91XD Laceration without foreign body of unspecified part of head, subsequent encounter; S30.1XXD Contusion of abdominal wall, subsequent encounter; V86.59XD Driver of other special all-terrain or other off-road motor vehicle injured in nontraffic accident, subsequent encounter; Z87.891 Personal history of nicotine dependence
CPT/HCPCS: 99282

== ENCOUNTER 2020-06-05 15:51 | Emergency (ER) | payer SELFPAY ==
[2020-06-05 15:52] VITALS: BP 214/133; PULSE 88; RESP 17; TEMP 36.9; O2SAT 99; BMI 26.6
[2020-06-05 16:11] VITALS: BP 209/150
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
== END 2020-06-05 16:31 | disposition home or self-care (01) ==
LOC: ED 16:16
PROVIDERS: Emergency Provider Emergency Medicine
DX: T81.33XA Disruption of traumatic injury wound repair, initial encounter (principal); S01.01XD Laceration without foreign body of scalp, subsequent encounter; S30.1XXD Contusion of abdominal wall, subsequent encounter; V86.59XD Driver of other special all-terrain or other off-road motor vehicle injured in nontraffic accident, subsequent encounter; I10 Essential (primary) hypertension; Z72.0 Tobacco use; Z79.899 Other long term (current) drug therapy
CPT/HCPCS: 99282

== ENCOUNTER 2020-12-27 07:31 | Emergency (ER) | payer SELFPAY ==
[2020-12-27 07:34] VITALS: BP 161/106; PULSE 80; RESP 16; TEMP 36.7; O2SAT 98; BMI 31.4
--- NOTE | 2020-12-27 07:41 | EKG12_ITS ---
Test Reason : NAUSEA/VOMITING Blood Pressure : / mmHG Vent. Rate : 064 BPM Atrial Rate : 064 BPM P-R Int : 128 ms QRS Dur : 088 ms QT Int : 458 ms P-R-T Axes : 071 032 017 degrees QTc Int : 472 ms Normal sinus rhythm Normal ECG Confirmed by CLAUDE CONNOLLY, HELEN ([id number]), multimedia editor RICARDO ORTIZ ([id number]) on 12/29/2020 12:40:50 PM Referred By: JOSE RAUL Confirmed By:HELEN ARCE MD
--- NOTE | 2020-12-27 07:42 | ED.DCSUM_ITS ---
History of Present Illness Chief Complaint: Nausea/Vomiting Informant: Patient Onset: Days Context: Gradual Onset Timing: Intermittent Current Severity: Moderate Maximum Severity: Moderate Narrative: The patient is a 35-year-old female with medical history significant for accelerated hypertension who presents to the emergency department with generalized malaise. 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 She is on clonidine at night. She also takes labetalol twice a day. She states that she had some weight gain and peripheral edema. On Sunday, she was started on Maxide. She states by Sunday, she does begin to have some generalized weakness and malaise. She states she is had some cold sweats. She states that her upper back is also felt heavy. She denies fever or chills. She denies cough or shortness of breath. She denies any chest pain. She states she is otherwise been in her normal state of health. Prior similar symptoms: No Recent Illness/Hospitalization: No Past Medical History - Allergies and Home Meds Allergies/Adverse Reactions: Allergies No Known Allergies Allergy (Verified 12/27/20 07:34) Primary Care Physician: Care Physician,No Primary [Primary Care Provider] - Prior records reviewed: Yes Past Medical History: - - Hypertension Surgical History: hysterectomy Smoking Status: Current every day smoker Review of Systems General: Denies: Chills, Fever, Sweats Eyes: Denies: Visual changes - bilaterally, Diplopia ENT: Denies: Rhinorrhea, Sore throat Cardiovascular: Denies: Chest pain, Palpitations Respiratory: Denies: Dyspnea, Cough, Dyspnea on exertion Gastrointestinal: Denies: Abdominal pain, Nausea, Vomiting, Diarrhea, Melena, Hematochezia Genitourinary: Denies: Dysuria, Hematuria, Frequency Musculoskeletal: Denies: Back pain, Extremity Pain Skin: Denies: Rash, Wounds Neurological: Denies: Headache, Weakness, Numbness Physical Exam Vital Signs/Narrative: Vital Signs Temp Pulse Resp BP Pulse Ox 12/27/20 07:34 98.1 F 80 16 161/106 H 98 Inital Vital Signs reviewed: Yes General: Well nourished, Well developed, No Acute Distress Head: Normocephalic, Atraumatic Eyes: Perrl, EOMI ENT: Moist mucous membranes, No rhinorrhea Neck: Supple, Nontender Cardiovascular: Regular rate, Regular rhythm, No murmurs Respiratory: No distress, CTA bilaterally, Chest nontender Abdomen: Soft, Nontender, Nondistended, Normal bowel sounds Back: Nontender, Normal Inspection Extremities: Nontender, No edema Skin: Normal color, No rash Neurological: Alert, Oriented x3, Cranial nerves II-XII grossly intact, Normal Strength, Normal Sensation Psychological: Normal affect, Normal Mood Diagnostic/Tx/Re-eval Clinical Impression(s) from Imaging Studies Chest X-Ray 12/27/20 08:43 IMPRESSION: Hyperinflation. The lungs are clear. Electronically Signed: Winston Lamb MD at 9:02 EST , Service support , Clinical Impression(s) from Imaging Studies Chest X-Ray 12/27/20 08:43 IMPRESSION: Hyperinflation. The lungs are clear. Electronically Signed: Winston Lamb MD at 9:02 EST , Service support , Abnormal Lab Results 12/27/20 12/27/20 08:35 08:35 WBC 8.5 RBC 5.29 Hgb 15.9 H Hct 48.0 H MCV 90.7 MCH 30.1 MCHC 33.1 RDW Std Deviation 45.1 H RDW Coeff of Shanika 13.4 Plt Count 311 MPV 10.9 Immature Gran % (Auto) 0.400 Neut % (Auto) 66.9 Lymph % (Auto) 25.0 [place] % (Auto) 6.2 Eos % (Auto) 0.8 Baso % (Auto) 0.7 Absolute Neuts (auto) 5.7 Absolute Lymphs (auto) 2.12 Nucleated RBC % 0 Sodium 136 Potassium 4.0 Chloride 104 Carbon Dioxide 26.0 Anion Gap 6 BUN 15 Creatinine 0.93 Estim Creat Clear Calc 75.25 Est GFR (MDRD) Af Amer 88 Est GFR (MDRD) Non-Af 73 BUN/Creatinine Ratio 16.2 Glucose 87 Calcium 9.7 Total Bilirubin 0.40 AST 9 L ALT 17 Alkaline Phosphatase 65 Troponin I < 0.015 Total Protein 8.6 H Albumin 4.6 Globulin 4.0 Albumin/Globulin Ratio 1.2 - Rhythm Strip Rhythm Strip: Sinus Rhythm Rate: 80 Ectopy: None - EKG Initial EKG Interpretation: Sinus Rhythm, No Acute Injury Pattern Prior: Unchanged - Medical Decision Making Patient presents with generalized malaise. She was recently started on Maxide and her symptoms began about 2 days later. There was concern that she may been hypokalemic. Metabolic work-up was pursued. EKG still shows sinus rhythm without evidence of acute ischemia. Chest x-ray reviewed by both myself and the radiologist shows no enlarged cardiac silhouette. There is no pleural effusion or evidence of CHF. Her labs do show some hemoconcentration. BUN and potassium are normal. My suspicion is that with her diuretic, she probably just tipped a little bit more to the dry scale. Patient is given a small bolus. At this point, I do feel that she is safe outpatient follow-up. I do not suspect a dangerous process. The patient is comfortable with this plan of care. Impression 1. Dehydration ED Disposition - Plan for ED Patient: Instructions: ED Dehydration (Adult) Referrals: Care Physician,No Primary [Primary Care Provider] -
--- NOTE | 2020-12-27 08:43 | RAD_ITS ---
STUDY: X-RAY CHEST REASON FOR EXAM: Female, 35 years old. CHEST AND BACK PAIN, NAUSEA, and quot; CLAMMY, I JUST DON FEEL WELL and quot;. SX STARTED THIS WEEKEND TECHNIQUE: Single AP portable view of the chest. COMPARISON: Comparison is made with prior study dated 07/30/2019. FINDINGS: EKG electrodes are seen. Hyperinflation. The lungs are clear. There is no demonstrated pleural abnormality. Normal size heart. Normal mediastinum and eliana. Normal visualized pulmonary arteries. Normal visualized aortic arch and descending thoracic aorta. Normal visualized thoracic spine. Findings suggestive of calcific tendinitis of the left shoulder. There is no demonstrated abnormality of the visualized soft tissue structures of the upper abdomen. RAD/Chest 1 View (Portable) IMPRESSION: Hyperinflation. The lungs are clear. Electronically Signed: Winston Lamb MD at 9:02 EST , Service support ,
[2020-12-27 08:45] LABS: Absolute Lymphocyte Count 2.12 X10^3/uL (0.83-4.51); Absolute Neutrophil Count 5.7 X10^3/uL (2.0-7.7); Basophil# 0.06 X10^3/uL; Basophil% 0.7 % (0-1); Eosinophil# 0.07 X10^3/uL; Eosinophils% 0.8 % (0-5); Hemoglobin 15.9 g/dL (12.0-15.0); Lymphocyte # 2.12 X10^3/ul (4.0); Mean Corp Hgb Conc 33.1 g/dL (32-36); Mean Corpuscular Hgb 30.1 pg (27.0-32.0); Mean Corpuscular Volume 90.7 fL (81-99); Mean Platelet Vol. 10.9 fl (6.2-12.0); Monocyte# 0.53 X10^3/uL; Monocyte% 6.2 % (0-10); NRBC Flagged by Analyzer 0 % (0-5); Neutrophil # 5.68 X10^3/uL (2.7-7.7); Neutrophil % 66.9 % (47-70); Platelet Count 311 K/mm3 (150-450); RBC Distribution Width CV 13.4 % (11.6-14.6); RBC Distribution Width SD 45.1 fl (35.1-43.9); Red Blood Count 5.29 M/mm3 (4.2-5.4); White Blood Count 8.5 K/mm3 (4.4-11.0)
[2020-12-27 09:07] LABS: ALB/GLOB Ratio 1.2 RATIO (0.9-2.4); AST(SGOT) 9 U/L (15-37); Alanine Aminotransfer ALT/SGPT 17 U/L (13-56); Albumin, Serum 4.6 g/dL (3.2-5.0); Alkaline Phosphatase 65 U/L (45-117); Anion Gap 6 (5-15); BUN 15 mg/dL (7-18); BUN/Creat Ratio 16.2 RATIO (10-20); Calcium,Total 9.7 mg/dL (8.5-10.1); Chloride 104 mmol/L (98-107); Creatinine, Serum 0.93 mg/dL (0.55-1.02); EST Glomerular Filtration Rate 73 mL/min (>60); Est Glom Filt Rate - Afr Amer 88 mL/min (>60); Estimated Creatinine Clearance 75.25 ml/min; Glucose 87 mg/dL (74-106); Protein, Total 8.6 g/dL (6.4-8.2); Sodium Level 136 mmol/L (136-145)
[2020-12-27 10:08] VITALS: BP 161/91; PULSE 63; RESP 19; O2SAT 99
== END 2020-12-27 10:12 | disposition home or self-care (01) ==
LOC: ED 08:30
PROVIDERS: Emergency Provider Emergency Medicine
DX: E86.0 Dehydration (principal); I10 Essential (primary) hypertension; Z79.899 Other long term (current) drug therapy; F17.200 Nicotine dependence, unspecified, uncomplicated
CPT/HCPCS: 71045; 80053; 84484; 85025; 93005; 99284; J7030; A4216

== ENCOUNTER 2021-05-30 07:58 | Observation (INO) | payer OTHER, SELFPAY ==
[2021-05-30] VITALS (17 sets, daily range): BP systolic 111–201; BP diastolic 70–106; PULSE 66–105; RESP 15–25; TEMP 36.9–37.1; O2SAT 96–100; BMI 33.9; BMI 32.2
--- NOTE | 2021-05-30 07:59 | CT_ITS ---
STUDY: CT HEAD STROKE PROTOCOL W/O CONTRAST INJECTION REASON FOR EXAM: Female, 36 years old. Neuro deficit, acute, stroke suspected RADIATION DOSAGE (If Supplied By Facility): CTDIvol = ( 38.43 ) mGy, DLP = ( 655.5 ) mGycm TECHNIQUE: Transaxial CT imaging of the brain was performed without administration of intravenous contrast material. Individualized dose optimization techniques were used for this CT. COMPARISON: Comparison is made with prior study dated 05/28/2020. FINDINGS: Normal soft tissue structures. Normal calvarium. Normal size ventricles and extra-axial spaces for the patient''s age. Normal white matter tracts of the cerebral hemispheres. Normal basal ganglia and thalami. Normal brainstem. Normal cerebellum. There is no intracranial hemorrhage. There are no findings of an acute ischemic infarction. Normal visualized paranasal sinuses. CT/STROKE Brain/Head without Cont IMPRESSION: Normal unenhanced CT scan of the brain. N.B. : The above Results were Read Back by Winston Lamb MD to Francis Blanco and understanding confirmed on 05/30/2021 08:22:10 (ET). Electronically Signed: Winston Lamb MD at 8:23 EDT , Service support ,
--- NOTE | 2021-05-30 07:59 | RAD_ITS ---
STUDY: X-RAY CHEST REASON FOR EXAM: Female, 36 years old. Neuro deficit, acute, stroke suspected TECHNIQUE: Single AP portable view of the chest. COMPARISON: Comparison is made with prior study dated 12/27/2020. FINDINGS: EKG electrodes are seen. The lungs are clear and expanded. There is no demonstrated pleural abnormality. Normal size heart. Normal mediastinum and eliana. Normal visualized pulmonary arteries. Normal visualized aortic arch and descending thoracic aorta. Normal visualized thoracic spine. Normal visualized ribs, clavicles, and shoulders. There is no demonstrated abnormality of the visualized soft tissue structures of the upper abdomen. RAD/Chest 1 View IMPRESSION: Normal x-ray examination of the chest. Electronically Signed: Winston Lamb MD at 9:21 EDT , Service support ,
--- NOTE | 2021-05-30 07:59 | EKG12_ITS ---
Test Reason : STROKE Blood Pressure : / mmHG Vent. Rate : 106 BPM Atrial Rate : 106 BPM P-R Int : 136 ms QRS Dur : 082 ms QT Int : 500 ms P-R-T Axes : 083 059 074 degrees QTc Int : 664 ms Sinus tachycardia Biatrial enlargement Nonspecific ST and T wave abnormality Prolonged QT Abnormal ECG Confirmed by JENNIFER CONNOLLY, OLGA ([id number]), website/blog editor RICARDO ORTIZ ([id number]) on 06/02/2021 10:07:20 AM Referred By: JAH Confirmed By:OLGA RODRIGUEZ MD
--- NOTE | 2021-05-30 08:00 | CT_ITS ---
STUDY: CTA HEAD AND NECK WITH CONTRAST REASON FOR EXAM: Female, 36 years old. Neuro deficit, acute, stroke suspected RADIATION DOSAGE (If Supplied By Facility): CTDIvol = ( 25.46 ) mGy, DLP = ( 930.11 ) mGycm TECHNIQUE: CT angiography was performed with a multi-detector CT scanner. Data acquisition was obtained from the skull base through the vertex following intravenous administration of IV 100ML ISOVUE 370. MIP images were reconstructed from the axial data set. Post-processing of the angiographic images was performed, with multiplanar reformation and 3D reconstruction. Individualized dose optimization techniques were used for this CT. COMPARISON: No relevant priors. FINDINGS: Normal bilateral petrous carotid arteries. Normal right cavernous carotid artery with a normal supraclinoid bifurcation. Normal left cavernous carotid artery with a normal supraclinoid bifurcation. Normal right A1 segments of the anterior cerebral artery. Normal left A1 segments of the anterior cerebral artery. Normal intact anterior communicating artery (ACOM). Normal bilateral A2 segments of the anterior cerebral arteries. Normal right M1 and M2 segments of the middle cerebral arteries, with a normal M1 bifurcation. Normal left M1 and M2 segments of the middle cerebral arteries, with a normal M1 bifurcation. Normal right posterior communicating artery (PCOM). Normal bilateral vertebral arteries. Normal basilar artery with a normal basilar bifurcation. The visualized bilateral superior cerebellar (SCA) arteries are normal. Normal bilateral P1, P2 and visualized P3 segments of the posterior cerebral arteries. There is no demonstrated aneurysm of the [place]. There is no demonstrated abnormality of the visualized brain. AORTIC ARCH: Normal visualized aortic arch. Normal origins of the brachiocephalic, left common carotid, and left subclavian arteries. RIGHT CAROTID ARTERIES: Normal right common carotid artery (CCA). Normal right common carotid bulb. Normal origin of the right internal carotid (ICA) artery without a hemodynamically significant stenosis. Normal visualized cervical portion of the right internal carotid artery. Normal origin of the right external carotid artery (ECA). LEFT CAROTID ARTERIES: Normal left common carotid artery (CCA). Normal left common carotid bulb. Normal origin of the left internal carotid (ICA) artery without a hemodynamically significant stenosis. Normal visualized cervical portion of the left internal carotid artery. Normal origin of the left external carotid artery (ECA). VERTEBRAL ARTERIES: Normal bilateral vertebral arteries. CT/STROKE CTA Head AND Neck W/Con IMPRESSION: Normal CTA Head and neck with contrast. N.B. : The above Results were Read Back by Winston Lamb MD to Francis Blanco and understanding confirmed on 05/30/2021 08:33:48 (ET). Electronically Signed: Winston Lamb MD at 8:34 EDT , Service support ,
--- NOTE | 2021-05-30 08:03 | NURSING ---
[id number] STROKE ALERTT CALLED.
--- NOTE | 2021-05-30 08:13 | NURSING ---
FAXED FACESHEET TO [facility]
--- NOTE | 2021-05-30 08:20 | EDS_ITS ---
HPI History of Present Illness Chief Complaint: Neuro S/Sx Informant: patient Onset/Context/Timing Onset: Today Context: Sudden Onset Timing: Continuous Quality and Location: Positive for Right Arm Parasthesia, Left Arm Parasthesia and - (Blurred vision left eye) Worsened by: Nothing Relieved by: Nothing Associated Symptoms Associated Symptoms: Positive for Headache; Negative for Nausea, Vomiting and Chest Pain Narrative Narrative: Patient presents with tingling in her hands and blurred vision out of her left eye. Patient states her vision and her left eye is like looking through water. Patient states she has been having some tingling in both hands. Patient denies any chest pain. Patient does admit to a left-sided headache. Patient denies any nausea or vomiting. Patient denies any fevers or chills. Patient denies any shortness of breath. Patient denies any weakness. [facility] Medical History High cholesterol Hypertension Tachycardia Home Medications cephalexin 500 mg PO 4X/DAY 05/30/21 [History Last Taken Unknown] clonidine 1 patch TRANSDERMAL TU 05/30/21 [History Last Taken Unknown] flecainide 50 mg PO BID 05/30/21 [History Last Taken Unknown] sertraline 25 mg PO BID 05/30/21 [History Last Taken Unknown] triamterene-hydrochlorothiazid 1 tab PO DAILY 05/30/21 [History Last Taken Unknown] verapamil 120 mg PO DAILY 05/30/21 [History Last Taken Unknown] Allergy/AdvReac Type Severity Reaction Status Date / Time No Known Allergies Allergy Verified 05/30/21 08:40 Surgical History (Updated 05/30/21 @ 08:23 by Marlen Dumont) History of hysterectomy no surgical history Social History Smoking Status: Former smoker ROS ROS ED Constitutional Constitutional ED: Denies chills or fever(s) Eyes Eyes: Reports blurry vision left; Denies change in vision ENT ENT ED: Denies rhinorrhea or sore throat Cardiovascular Cardiovascular: Denies chest pain or palpitations Respiratory/Chest Respiratory/Chest: Denies cough or dyspnea Gastrointestinal Gastrointestinal: Denies nausea or vomiting Genitourinary Genitourinary ED: Denies dysuria or hematuria Musculoskeletal Musculoskeletal: Denies back pain or neck pain Integumentary Denies abscess or rash Neurologic Neurologic: Reports headache(s) and paresthesias; Denies weakness Allergic/Immunologic Allergic/Immunologic ED: Denies mouth swelling or urticaria EXAM Physical Exam Const Vital Signs: 05/30/21 08:02 05/30/21 08:10 05/30/21 08:41 Temperature 98.4 F 98.4 F Temperature Source Temporal Oral Pulse Rate 105 H 93 Respiratory Rate 25 H 15 Blood Pressure 201/106 H 158/101 H Blood Pressure Mean 137 120 Pulse Ox 100 99 Oxygen Delivery Method Room Air Room Air 05/30/21 08:50 05/30/21 09:00 05/30/21 09:30 Temperature Temperature Source Pulse Rate 93 83 80 Respiratory Rate 18 20 H 18 Blood Pressure 130/97 H 123/94 H 130/87 H Blood Pressure Mean 108 103 101 Pulse Ox 99 98 96 Oxygen Delivery Method Room Air Room Air Room Air 05/30/21 10:03 05/30/21 10:17 05/30/21 10:19 Temperature 98.4 F Temperature Source Oral Pulse Rate 74 74 74 Respiratory Rate 16 16 16 Blood Pressure 128/96 H 128/96 H 128/96 H Blood Pressure Mean 106 106 106 Pulse Ox 99 99 99 Oxygen Delivery Method Room Air Room Air Room Air Positive well nourished and well developed General Appearance ED: well developed HEENT Reports moist mucous membranes Eyes PERRL and EOMs intact bilaterally Neck supple and no JVD Resp normal respiratory effort and clear to auscultation bilaterally Cardio regular rate, regular rhythm and no murmurs GI normal to inspection, nondistended, normoactive bowel sounds and non-tender Palpation: soft Extremity normal to inspection General Extremety ED: Negative for edema or tenderness General Extremity: Negative for edema Neuro oriented x3, CN's II-XII intact bilaterally and no sensory deficits noted Sensorium / Orientation: alert Motor Exam: strength 5/5 throughout Psych mental status grossly normal Skin no rashes or lesions noted STROKE Vital Signs/Narrative: Vital Signs Temp Pulse Resp BP Pulse Ox 05/30/21 10:19 98.4 F 74 16 128/96 H 99 05/30/21 10:17 74 16 128/96 H 99 05/30/21 10:03 74 16 128/96 H 99 05/30/21 09:30 80 18 130/87 H 96 05/30/21 09:00 83 20 H 123/94 H 98 05/30/21 08:50 93 18 130/97 H 99 05/30/21 08:41 93 15 158/101 H 99 05/30/21 08:10 98.4 F 105 H 25 H 201/106 H 100 05/30/21 08:02 98.4 F MDM MDM MDM Narrative Medical decision making narrative: EKG was obtained. On my interpretation, it showed a sinus tachycardia with a rate of 106. OR interval and QRS interval was normal. QTc interval was prolonged at 664. [place] was normal. There are no acute ST or T wave changes. CT scan of the brain was obtained. There is no acute intracranial abnormality. CTA of the head neck was obtained. There is no large vessel occlusion. There is no evidence of stenosis. These were interpreted by the radiologist and reviewed by myself. Portable 1 view chest x- ray was obtained. On my interpretation, lung nova are clear. There is normal cardiac silhouette. Bony thorax is normal. There is no acute process noted. Radiologist also interpreted the x-ray and agrees. CBC was normal. PT with INR and PTT were normal. Basic metabolic profile showed a potassium of 2.6. Patient was given a dose of oral potassium as well as IV potassium. High- sensitivity troponin was normal. Patient was given Reglan, Benadryl, and Toradol for her headache. Patient is feeling better on reevaluation. Patient's blood pressure has improved. Stroke team was called initially. Patient was evaluated by stroke neurologist from [facility]. He did not feel TPA was indicated at this time because the patient's symptoms were only minor symptoms and not disabling. He recommended admission for MRI and further evaluation for possible stroke. Patient understands and is agreeable with the plan. Case was discussed with the hospitalist. He will admit the patient to PCU for observation. All questions were answered. Lab Data Labs: Laboratory Results - last 24 hr 05/30/21 05/30/21 05/30/21 08:15 08:15 08:15 WBC 8.0 RBC 4.26 Hgb 13.1 Hct 37.9 MCV 89.0 MCH 30.8 MCHC 34.6 RDW Std Deviation 44.2 H RDW Coeff of Shanika 13.7 Plt Count 321 MPV 10.3 Immature Gran % (Auto) 0.300 Neut % (Auto) 65.9 Lymph % (Auto) 27.1 [place] % (Auto) 5.9 Eos % (Auto) 0.4 Baso % (Auto) 0.4 Absolute Neuts (auto) 5.3 Absolute Lymphs (auto) 2.16 Nucleated RBC % 0 PT 13.1 INR 1.1 APTT 25.9 Sodium 134 L Potassium 2.6 L* Chloride 98 Carbon Dioxide 26.0 Anion Gap 10 BUN 13 Creatinine 0.88 Estim Creat Clear Calc 75.58 Est GFR (MDRD) Af Amer 93 Est GFR (MDRD) Non-Af 77 BUN/Creatinine Ratio 14.8 Glucose 106 Calcium 8.3 L Troponin I High Sens 4.9 Radiography Diagnostic Testing: Radiology Impression Brain CT 05/30/21 07:59 IMPRESSION: Normal unenhanced CT scan of the brain. N.B. : The above Results were Read Back by Winston Lamb MD to Francis Blanco and understanding confirmed on 05/30/2021 08:22:10 (ET). Electronically Signed: Winston Lamb MD at 8:23 EDT , Service support , ADDENDUM: 05/30/21 0830 IMPRESSION: Normal unenhanced CT scan of the brain. N.B. : The above Results were Read Back by Winston Lamb MD to Francis Blanco and understanding confirmed on 05/30/2021 08:22:10 (ET). Electronically Signed: Winston Lamb MD at 8:23 EDT , Service support , Chest X-Ray 05/30/21 07:59 IMPRESSION: Normal x-ray examination of the chest. Electronically Signed: Winston Lamb MD at 9:21 EDT , Service support , Head/Neck CTA 05/30/21 08:00 IMPRESSION: Normal CTA Head and neck with contrast. N.B. : The above Results were Read Back by Winston Lamb MD to Francis Blanco and understanding confirmed on 05/30/2021 08:33:48 (ET). Electronically Signed: Winston Lamb MD at 8:34 EDT , Service support , ADDENDUM: 05/30/21 0841 IMPRESSION: Normal CTA Head and neck with contrast. N.B. : The above Results were Read Back by Winston Lamb MD to Francis Blanco and understanding confirmed on 05/30/2021 08:33:48 (ET). Electronically Signed: Winston Lamb MD at 8:34 EDT , Service support , EKG Initial EKG: Attestation: I personally reviewed and interpreted this EKG as follows: Interpretation: Sinus Rhythm, No Acute Injury Pattern and Non-Specific ST Changes Prior EKG tracings: available for review Prior: Changed (Compared to previous EKG dated 12/27/2020, QTC is prolonged at 664. This was normal previously.) Treatment and Re-Evaluation Vital Sign Attestation:: Vital signs were reviewed prior to admission. They are stable. Stroke Documentation Questions Stroke Team Activated: Yes Reviewed Inclusion/Exclusion criteria: Yes Was Patient considered for Endovascular Intervention?: No IV Alteplase (t-PA) Administered: No Discharge Plan Dx/Rx/DC Orders Clinical Impression: Paresthesias, Headache, Hypokalemia Disposition Disposition: Acute Care Hospital [facility]
[2021-05-30 08:26] LABS: Absolute Lymphocyte Count 2.16 X10^3/uL (0.83-4.51); Absolute Neutrophil Count 5.3 X10^3/uL (2.0-7.7); Basophil# 0.03 X10^3/uL; Basophil% 0.4 % (0-1); Eosinophil# 0.03 X10^3/uL; Eosinophils% 0.4 % (0-5); Hematocrit 37.9 % (37-47); Hemoglobin 13.1 g/dL (12.0-15.0); Lymphocyte # 2.16 X10^3/ul (0.83-4.51); Lymphocyte % 27.1 % (19-41); Mean Corp Hgb Conc 34.6 g/dL (32-36); Mean Corpuscular Hgb 30.8 pg (27.0-32.0); Mean Platelet Vol. 10.3 fl (6.2-12.0); Monocyte# 0.47 X10^3/uL; Monocyte% 5.9 % (0-10); NRBC Flagged by Analyzer 0 % (0-5); Neutrophil # 5.25 X10^3/uL (2.7-7.7); Neutrophil % 65.9 % (47-70); Platelet Count 321 K/mm3 (150-450); RBC Distribution Width CV 13.7 % (11.6-14.6); RBC Distribution Width SD 44.2 fl (35.1-43.9); Red Blood Count 4.26 M/mm3 (4.2-5.4)
[2021-05-30 08:33] LABS: International Normalized Ratio 1.1; Prothrombin Time (Protime)PT. 13.1 SECONDS (11.7-14.9)
[2021-05-30 08:34] LABS: Partial Thromboplast Time 25.9 Seconds (24.1-36.2)
[2021-05-30 08:48] LABS: Anion Gap 10 (5-15); BUN 13 mg/dL (7-18); BUN/Creat Ratio 14.8 RATIO (10-20); Calcium,Total 8.3 mg/dL (8.5-10.1); Chloride 98 mmol/L (98-107); Creatinine, Serum 0.88 mg/dL (0.55-1.02); EST Glomerular Filtration Rate 77 mL/min (>60); Est Glom Filt Rate - Afr Amer 93 mL/min (>60); Estimated Creatinine Clearance 75.58 ml/min; Glucose 106 mg/dL (74-106); Potassium 2.6 mmol/L (3.5-5.1); Sodium Level 134 mmol/L (136-145); Troponin-I HS 4.9 pg/mL (3.0-53.7)
[2021-05-30] MEDS: Ketorolac 15 MG/ML Vial IV ×2 (08:49→20:17)
[2021-05-30] MEDS: DiphenhydrAMINE 50 MG/ML Syringe 25 MG IV (08:49)
[2021-05-30] MEDS: Metoclopramide 10 MG/2 ML Vial IV (08:49)
[2021-05-30] MEDS: Potassium Chloride 10mEq/100mL 10 MEQ/100 ML IV.SOLN. 100 MEQ IV BOLUS (09:19)
[2021-05-30] MEDS: Potassium Chloride Oral Tablet 20 MEQ 60 MEQ PO (09:25)
--- NOTE | 2021-05-30 10:07 | NURSING ---
DR SCHUMACHER FOR DR VORA
--- NOTE | 2021-05-30 10:41 | NURSING ---
123 OBS KOTSONIS PARESTHESIAS, HEADACHE, HYPOKALEMIA
--- NOTE | 2021-05-30 11:45 | MRI_ITS ---
EXAM: MR HEAD WITHOUT INTRAVENOUS CONTRAST CLINICAL INDICATION: CVA. Blurred vision in the left eye. Headache. TECHNIQUE: Multiplanar and multisequence MR images of the brain were obtained without intravenous contrast. This report was created using [employer] technology. COMPARISON: CT head without contrast and CTA head with contrast 05/30/2021. FINDINGS: BRAIN AND EXTRA-AXIAL SPACES: No diffusion restriction to suspect acute or subacute ischemic infarct. No focal signal abnormalities throughout the brain parenchyma. No intra- or extra-axial hemorrhage. No intracranial mass or mass effect. Posterior fossa structures are unremarkable. Ventricles are appropriate for age. No hydrocephalus. Basal cisterns are patent. SELLA: Unremarkable. Normal sella turcica, pituitary gland, infundibular stalk, optic chiasm and hypothalamus. AUDITORY SYSTEM: Unremarkable. The internal auditory canals are patent. BONES/JOINTS: Unremarkable. No discrete lytic or blastic abnormalities. SINUSES: Mucosal retention cysts in the floor of the right maxillary sinus. Otherwise normal paranasal sinuses. MASTOID AIR CELLS: Unremarkable as visualized. Clear. ORBITS: Unremarkable as visualized. Both globes, extraocular muscles, optic nerves and retrobulbar fat appear unremarkable. VASCULATURE: Unremarkable as visualized. Normal flow voids in the major intracranial circulation. MRI/Brain without Contrast IMPRESSION: 1. Normal MRI brain without contrast. 2. No interval change when compared to 05/30/2021. Electronically Signed: Lester Jacques MD at 15:34 EDT , Service support ,
--- NOTE | 2021-05-30 12:22 | HP.PCM.HOS_ITS ---
HPI - General General Date of Admission: 05/30/21 HPI Narrative ELOSIE ELLIOTT, is a 36 F who presents with bilateral upper extremity and lower extremity numbness and blurry vision out of her left eye. She currently states that is almost all resolved except for the blurry vision. She was seen by [facility] neurology did not feel that she was having a stroke, given the fact that she also had a headache when this all started, it is likely complex migraine. She states that she noticed the numbness in her hands first and then she developed a severe headache which was then followed by the blurry vision in her left and the numbness in her left. She is also had similar issues in the past with low potassium though not as severe as this, and she also had what was called a TIA in 2006 but that was also accompanied by a headache at that time. CT of the head and neck was negative for any carotid disease and brain CT was unremarkable. She had resolution of symptoms with Reglan and Toradol in the ED. NIH of 1 [facility] Medical History (Updated 05/30/21 @ 12:[address] Dimitry Flaherty MD) High cholesterol Hypertension Tachycardia TIA (transient ischemic attack) Home Medications cephalexin 500 mg PO 4X/DAY 05/30/21 [History Last Taken 05/29/21 21:00] clonidine 1 patch TRANSDERMAL TU 05/30/21 [History Last Taken 05/29/21 21:00] flecainide 50 mg PO BID 05/30/21 [History Last Taken 05/29/21 21:00] sertraline 25 mg PO BID 05/30/21 [History Last Taken 05/29/21 21:00] triamterene-hydrochlorothiazid 1 tab PO DAILY 05/30/21 [History Last Taken 05/29/21 21:00] verapamil 120 mg PO DAILY 05/30/21 [History Last Taken 05/29/21 21:00] Allergy/AdvReac Type Severity Reaction Status Date / Time No Known Allergies Allergy Verified 05/30/21 08:40 Family History (Updated 05/30/21 @ 13:[address] Dimitry Flaherty MD) Other Cancer Diabetes Heart disease Surgical History (Updated 05/30/21 @ 08:23 by Marlen Dumont) History of hysterectomy Social History Smoking Status: Former smoker ROS Constitutional Constitutional: Denies chills, fatigue, fever(s) or malaise Eyes Eyes: Reports blurry vision ENT HEENT: Reports headache(s); Denies nasal discharge Cardiovascular Cardiovascular: Denies chest pain, dyspnea on exertion or syncope Respiratory/Chest Respiratory/Chest: Denies cough, shortness of breath at rest or shortness of breath with exertion Gastrointestinal Gastrointestinal: Denies constipation, diarrhea, nausea or vomiting Genitourinary Genitourinary: Denies dysuria Neurologic Neurologic: Reports numbness; Denies focal weakness or tremor(s) Psychiatric Psychiatric: Denies anxiety or depression Vital Signs Vital Signs Vital Signs: 05/30/21 08:02 05/30/21 08:10 05/30/21 08:41 Temperature 98.4 F 98.4 F Temperature Source Temporal Oral Pulse Rate 105 H 93 Respiratory Rate 25 H 15 Blood Pressure 201/106 H 158/101 H Blood Pressure Mean 137 120 Blood Pressure Source Blood Pressure Position Blood Pressure Location Pulse Ox 100 99 Oxygen Delivery Method Room Air Room Air 05/30/21 08:50 05/30/21 09:00 05/30/21 09:30 Temperature Temperature Source Pulse Rate 93 83 80 Respiratory Rate 18 20 H 18 Blood Pressure 130/97 H 123/94 H 130/87 H Blood Pressure Mean 108 103 101 Blood Pressure Source Blood Pressure Position Blood Pressure Location Pulse Ox 99 98 96 Oxygen Delivery Method Room Air Room Air Room Air 05/30/21 10:03 05/30/21 10:17 05/30/21 10:19 Temperature 98.4 F Temperature Source Oral Pulse Rate 74 74 74 Respiratory Rate 16 16 16 Blood Pressure 128/96 H 128/96 H 128/96 H Blood Pressure Mean 106 106 106 Blood Pressure Source Blood Pressure Position Blood Pressure Location Pulse Ox 99 99 99 Oxygen Delivery Method Room Air Room Air Room Air 05/30/21 10:43 05/30/21 11:45 Temperature 98.4 F Temperature Source Temporal Pulse Rate 76 72 Respiratory Rate 15 15 Blood Pressure 148/90 H 134/82 H Blood Pressure Mean 109 99 Blood Pressure Source Monitor Blood Pressure Position Semi-Fowlers Blood Pressure Location Left Arm Pulse Ox 98 97 Oxygen Delivery Method Room Air Room Air Weight Weight: 187 lb 13.341 oz Body Mass Index (BMI) 32.2 Physical Exam Const alert, oriented x3 and no apparent distress General Appearance: cooperative HEENT normocephalic and moist oral mucous membranes Eyes PERRL, EOMs intact bilaterally and conjunctivae normal Neck supple and no JVD Resp normal respiratory effort, no retractions, no use of accessory muscles and clear to auscultation bilaterally Auscultation: Negative for crackles, rales, rhonchi or wheezes Cardio regular rate, regular rhythm, S1 normal heart sound, S2 normal heart sound and no murmurs GI soft to palpation, non-tender and non-distended; Negative for hepatosplenomegaly Extremity no clubbing, cyanosis or edema Skin no rashes or lesions noted Neuro no focal motor deficits and no sensory deficits noted Psych affect normal Appearance: appropriate Results Lab / Micro Data Result Diagrams: 05/30/21 08:15 05/30/21 08:15 Labs: Laboratory Results - last 24 hr 05/30/21 08:15: WBC 8.0, RBC 4.26, Hgb 13.1, Hct 37.9, MCV 89.0, MCH 30.8, MCHC 34.6, RDW Std Deviation 44.2 H, RDW Coeff of Shanika 13.7, Plt Count 321, MPV 10.3, Immature Gran % (Auto) 0.300, Neut % (Auto) 65.9, Lymph % (Auto) 27.1, Collier % (Auto) 5.9, Eos % (Auto) 0.4, Baso % (Auto) 0.4, Absolute Neuts (auto) 5.3, Absolute Lymphs (auto) 2.16, Nucleated RBC % 0 05/30/21 08:15: PT 13.1, INR 1.1, APTT 25.9 05/30/21 08:15: Sodium 134 L, Potassium 2.6 L*, Chloride 98, Carbon Dioxide 26.0, Anion Gap 10, BUN 13, Creatinine 0.88, Estim Creat Clear Calc 75.58, Est GFR (MDRD) Af Amer 93, Est GFR (MDRD) Non-Af 77, BUN/Creatinine Ratio 14.8, Glu cose 106, Calcium 8.3 L, Troponin I High Sens 4.[address] 05/30/21 07:59 IMPRESSION: Normal unenhanced CT scan of the brain. N.B. : The above Results were Read Back by Winston Lamb MD to Francis Blanco and understanding confirmed on 05/30/2021 08:22:10 (ET). Electronically Signed: Winston Lamb MD at 8:23 EDT , Service support , ADDENDUM: 05/30/21 0830 IMPRESSION: Normal unenhanced CT scan of the brain. N.B. : The above Results were Read Back by Winston Lamb MD to Francis Blanco and understanding confirmed on 05/30/2021 08:22:10 (ET). Electronically Signed: Winston Lamb MD at 8:23 EDT , Service support , Chest X-Ray 05/30/21 07:59 IMPRESSION: Normal x-ray examination of the chest. Electronically Signed: Winston Lamb MD at 9:21 EDT , Service support , Head/Neck CTA 05/30/21 08:00 IMPRESSION: Normal CTA Head and neck with contrast. N.B. : The above Results were Read Back by Winston Lamb MD to Francis Blanco and understanding confirmed on 05/30/2021 08:33:48 (ET). Electronically Signed: Winston Lamb MD at 8:34 EDT , Service support , ADDENDUM: 05/30/21 0841 IMPRESSION: Normal CTA Head and neck with contrast. N.B. : The above Results were Read Back by Winston Lamb MD to Francis Blanco and understanding confirmed on 05/30/2021 08:33:48 (ET). Electronically Signed: Winston Lamb MD at 8:34 EDT , Service support , Assessment & Plan Assessment/Plan (1) Migraine: (2) Hypokalemia: PLAN: 1. Complex migraine/hypokalemia -We will obtain an MRI to rule out stroke however her symptoms do not fit with a stroke -Continue with Toradol for her headache -Monitor potassium, was 2.6 in the ER, currently being replaced and will check magnesium and phosphorus in the morning -NIH of 1 due to blurry vision, all other work-up for stroke so far has been negative -If MRI does come back positive for stroke can proceed with an echo 2. PSVT/HTN -Blood pressure stable -Continue with her home blood pressure medications -Continue with flecainide 3. Anxiety/depression -Stable -Continue Zoloft DVT: Ambulation Charges/Coding Visit Charges OBSV E&M: 50563 Initial observation care L3
[2021-05-30] MEDS: Flecainide 100 MG Tablet 50 MG PO ×2 (14:07→20:12)
[2021-05-30] MEDS: Cephalexin 500 MG Capsule PO ×3 (14:08→20:12)
[2021-05-30] MEDS: Sertraline 50 MG Tablet 25 MG PO ×2 (14:08→20:12)
[2021-05-30] MEDS: Acetaminophen 325 MG Tablet 650 MG PO (14:12)
[2021-05-30] MEDS: Triamterene 37.5MG/Hctz 25MG Capsule 1 CAP PO (17:04)
[2021-05-30] MEDS: Verapamil 120 MG Tablet PO (17:04)
[2021-05-30] MEDS: 0.9% Saline Lock 10 ML Syringe IV (20:17)
[2021-05-30 23:50] LABS: Bedside Glucose 104 mg/dL (70-110)
[2021-05-31 02:15] VITALS: BP 123/99; PULSE 62; RESP 16; TEMP 36.4; O2SAT 100
[2021-05-31 03:00] VITALS: PULSE 75
[2021-05-31 06:25] LABS: Absolute Lymphocyte Count 2.86 X10^3/uL (0.83-4.51); Absolute Neutrophil Count 6.9 X10^3/uL (2.0-7.7); Basophil# 0.05 X10^3/uL; Basophil% 0.5 % (0-1); Eosinophil# 0.04 X10^3/uL; Eosinophils% 0.4 % (0-5); Hematocrit 39.6 % (37-47); Hemoglobin 13.3 g/dL (12.0-15.0); Lymphocyte # 2.86 X10^3/ul (0.83-4.51); Lymphocyte % 27.6 % (19-41); Mean Corp Hgb Conc 33.6 g/dL (32-36); Mean Corpuscular Hgb 30.7 pg (27.0-32.0); Mean Corpuscular Volume 91.5 fL (81-99); Mean Platelet Vol. 10.8 fl (6.2-12.0); Monocyte# 0.48 X10^3/uL; Monocyte% 4.6 % (0-10); NRBC Flagged by Analyzer 0 % (0-5); Neutrophil % 66.5 % (47-70); Platelet Count 299 K/mm3 (150-450); RBC Distribution Width CV 13.5 % (11.6-14.6); RBC Distribution Width SD 45.2 fl (35.1-43.9); Red Blood Count 4.33 M/mm3 (4.2-5.4); White Blood Count 10.4 K/mm3 (4.4-11.0)
[2021-05-31 06:52] LABS: Anion Gap 6 (5-15); BUN 13 mg/dL (7-18); BUN/Creat Ratio 16.8 RATIO (10-20); Calcium,Total 8.5 mg/dL (8.5-10.1); Chloride 103 mmol/L (98-107); Creatinine, Serum 0.78 mg/dL (0.55-1.02); EST Glomerular Filtration Rate 89 mL/min (>60); Est Glom Filt Rate - Afr Amer 108 mL/min (>60); Estimated Creatinine Clearance 85.27 ml/min; Glucose 87 mg/dL (74-106); Phosphorus 2.4 mg/dL (2.5-4.9); Potassium 3.3 mmol/L (3.5-5.1); Sodium Level 138 mmol/L (136-145)
[2021-05-31 07:18] VITALS: PULSE 57
[2021-05-31 07:54] VITALS: BP 128/90; PULSE 67; RESP 16; TEMP 36.9; O2SAT 98
[2021-05-31] MEDS: Sertraline 50 MG Tablet 25 MG PO (08:02)
[2021-05-31] MEDS: Verapamil 120 MG Tablet PO (08:02)
[2021-05-31] MEDS: Cephalexin 500 MG Capsule PO (08:02)
[2021-05-31] MEDS: Triamterene 37.5MG/Hctz 25MG Capsule 1 CAP PO (08:02)
[2021-05-31] MEDS: Potassium Chloride Oral Tablet 20 MEQ PO (08:08)
[2021-05-31] MEDS: Flecainide 100 MG Tablet 50 MG PO (09:13)
--- NOTE | 2021-05-31 13:12 | PCM.DC ---
Discharge Instructions Diet Discharge Diet: No restrictions Activity Discharge Activity: Return to Normal Activity Dressing / Incision Call your doctor if you observe: Fever of 101 or Higher, Shortness of breath, Dizziness, Swelling in the ankles, Chest pain and Increased palpitations (irregular heartbeat) Follow Up Care Test Results: Test results from this visit will be discussed in further detail at your follow-up appointment, if applicable. Discharge Plan Admission Admit Date/Time: 05/30/21 10:39 Attending Provider: Dimitry Flaherty Primary Care Provider: Care Physician,No Primary Instructions Additional Instructions / Restrictions: Obtain an [id number] potassium supplement and take daily while on her blood pressure medications. Follow-up with your stock dealer to discuss transitioning to a different blood pressure medication to avoid hypokalemia in the future. Discharge Orders/Prescriptions Prescriptions: Continued verapamil 120 mg tablet extended release 120 mg PO DAILY RF: 0 cephalexin 500 mg capsule 500 mg PO 4X/DAY RF: 0 sertraline 25 mg tablet 25 mg PO BID RF: 0 triamterene-hydrochlorothiazid 37.5-25 mg tablet 1 tab PO DAILY RF: 0 clonidine 0.3 mg/24 hr patch weekly 1 patch transdermal TU RF: 0 flecainide 50 mg tablet 50 mg PO BID RF: 0 Referrals / Follow Up: Marshall Up MD [NON-STAFF] - Within 1 Month Care Physician,No Primary [Primary Care Provider] - Disposition Disposition (needs filled in before D/C Order can be placed): Home, Self Care
--- NOTE | 2021-05-31 14:00 | DS.PCM_ITS ---
Providers Date of Admission: 05/30/21 Primary Care Physician: No Primary Care Phys Reason For Visit: PARESTHEIAS, HEADACHE, HYPOKALEMIA Diagnosis Discharge Diagnosis (1) Migraine: Status: Acute Code(s): G43.909 - Migraine, unspecified, not intractable, without status migrainosus (2) Hypokalemia: Status: Acute Code(s): E87.6 - Hypokalemia Medications at Discharge Home Medications cephalexin 500 mg PO 4X/DAY 05/30/21 clonidine 1 patch TRANSDERMAL TU 05/30/21 flecainide 50 mg PO BID 05/30/21 sertraline 25 mg PO BID 05/30/21 triamterene-hydrochlorothiazid 1 tab PO DAILY 05/30/21 verapamil 120 mg PO DAILY 05/30/21 Hospital Course Operations None Procedures None Summary of Care Provided Minutes Spent on Discharge: 45 Hospital Course: Per HPI: ELOISE ELLIOTT, is a 36 F who presents with bilateral upper extremity and lower extremity numbness and blurry vision out of her left eye. She currently states that is almost all resolved except for the blurry vision. She was seen by [facility] neurology did not feel that she was having a stroke, given the fact that she also had a headache when this all started, it is likely complex migraine. She states that she noticed the numbness in her hands first and then she developed a severe headache which was then followed by the blurry vision in her left and the numbness in her left. She is also had similar issues in the past with low potassium though not as severe as this, and she also had what was called a TIA in 2006 but that was also accompanied by a headache at that time. CT of the head and neck was negative for any carotid disease and brain CT was unremarkable. She had resolution of symptoms with Reglan and Toradol in the ED. NIH of 1 Hospital Course: 1. Complex migraine/[id number] female presents to the hospital with bilateral upper extremity numbness as well as headache and left blurry vision. MRI was negative for stroke and with treatment of her headache a lot of her symptoms resolved. She does endorse significant amount of stress. She did have a TIA in 2006, at that time she was having a significant amount of stress that she was building a house and she also had bad headache at that time as well. Symptoms resolved with treatment for her headache as well as correction of her hypokalemia. She is on triamterene hydrochlorothiazide which should put her at risk for hyperkalemia, however I did advise her to pick and shovel man an dvae-tgm-wvnalra potassium supplement and follow-up with her machine hamper maker as an outpatient for blood pressure medication adjustment. I discussed with her the plan for discharge and she expressed understanding of the risk benefits of going home and would like to go home today. I do recommend that she follow-up with a neurologist as an outpatient for evaluation. 2. Paroxysmal SVT, hypertension, anxiety, depression all chronic medical conditions which complicate her care. Her home medications were continued where appropriate Physical Exam Const alert, oriented x3 and no apparent distress General Appearance: cooperative HEENT normocephalic and moist oral mucous membranes Eyes PERRL, EOMs intact bilaterally and conjunctivae normal Neck supple and no JVD Resp normal respiratory effort, no retractions, no use of accessory muscles and clear to auscultation bilaterally Auscultation: Negative for crackles, rales, rhonchi or wheezes Cardio regular rate, regular rhythm, S1 normal heart sound, S2 normal heart sound and no murmurs GI soft to palpation, non-tender and non-distended; Negative for hepatosplenomegaly Extremity no clubbing, cyanosis or edema Skin no rashes or lesions noted Neuro no focal motor deficits and no sensory deficits noted Psych affect normal Appearance: appropriate Weight / BMI Weight Weight: 187 lb 13.341 oz Body Mass Index (BMI) 32.2 ABG / Lab / Microbiology Data Result Diagrams: 05/31/21 05:45 05/31/21 05:45 Laboratory: Laboratory Results - last 24 hr 05/30/21 07:54: POC Glucose 104 05/31/21 05:45: WBC 10.4, RBC 4.33, Hgb 13.3, Hct 39.6, MCV 91.5, MCH 30.7, MCHC 33.6, RDW Std Deviation 45.2 H, RDW Coeff of Shanika 13.5, Plt Count 299, MPV 10.8, Immature Gran % (Auto) 0.400, Neut % (Auto) 66.5, Lymph % (Auto) 27.6, Donley % (Auto) 4.6, Eos % (Auto) 0.4, Baso % (Auto) 0.5, Absolute Neuts (auto) 6.9, Absolute Lymphs (auto) 2.86, Nucleated RBC % 0 05/31/21 05:45: Sodium 138, Potassium 3.3 L, Chloride 103, Carbon Dioxide 29.0, Anion Gap 6, BUN 13, Creatinine 0.78, Estim Creat Clear Calc 85.27, Est GFR (MDRD) Af Amer 108, Est GFR (MDRD) Non-Af 89, BUN/Creatinine Ratio 16.8, Glucose 87, Calcium 8.5, Phosphorus 2.4 L, Magnesium 2.0 Radiography Diagnostic Testing: Radiology Impression Brain MRI 05/30/21 11:45 IMPRESSION: 1. Normal MRI brain without contrast. 2. No interval change when compared to 05/30/2021. Electronically Signed: Lester Jacques MD at 15:34 EDT , Service support , D/C Instructions Discharge Diet: No restrictions Call your doctor if you observe: Fever of 101 or Higher, Shortness of breath, Dizziness, Swelling in the ankles, Chest pain and Increased palpitations (irregular heartbeat) Meaningful Use Info Meaningful Use Diagnoses (Choose all that apply): None applicable Discharge Plan Admission Admit Date/Time: 05/30/21 10:39 Attending Provider: Dimitry Flaherty Primary Care Provider: Care Physician,No Primary Instructions Additional Instructions / Restrictions: Obtain an ugom-jru-[id number] potassium supplement and take daily while on her blood pressure medications. Follow-up with your machine hamper maker to discuss transitioning to a different blood pressure medication to avoid hypokalemia in the future. Discharge Orders/Prescriptions Prescriptions: Continued verapamil 120 mg tablet extended release 120 mg PO DAILY RF: 0 cephalexin 500 mg capsule 500 mg PO 4X/DAY RF: 0 sertraline 25 mg tablet 25 mg PO BID RF: 0 triamterene-hydrochlorothiazid 37.5-25 mg tablet 1 tab PO DAILY RF: 0 clonidine 0.3 mg/24 hr patch weekly 1 patch transdermal TU RF: 0 flecainide 50 mg tablet 50 mg PO BID RF: 0 Referrals / Follow Up: Marshall Up MD [NON-STAFF] - Within 1 Month Care Physician,No Primary [Primary Care Provider] - Disposition Disposition (needs filled in before D/C Order can be placed): Home, Self Care Charges/Coding Visit Charges OBSV E&M: 20816 Observation care discharge
== END 2021-05-31 13:13 | disposition home or self-care (01) ==
LOC: ED 10:22 → PCU 10:41
PROVIDERS: Admitting Provider Family Medicine; Emergency Provider Emergency Medicine; Visit Provider Family Medicine
DX: G43.109 Migraine with aura, not intractable, without status migrainosus (principal); E87.6 Hypokalemia; E78.00 Pure hypercholesterolemia, unspecified; I10 Essential (primary) hypertension; R29.701 NIHSS score 1; F41.9 Anxiety disorder, unspecified; F32.9 Major depressive disorder, single episode, unspecified; I47.1 Supraventricular tachycardia; Z79.899 Other long term (current) drug therapy; Z87.891 Personal history of nicotine dependence; Z86.73 Personal history of transient ischemic attack (TIA), and cerebral infarction without residual deficits
CPT/HCPCS: 36415; 70450; 70496; 70498; 70551; 71045; 80048; 82962; 83735; 84100; 84484; 85025; 85610; 85730; 93005; 96365; 96366; 96375; 96376; 99218; 99285; J7050; Q9967; A4216; G0378

== ENCOUNTER → 2021-06-02 16:59 | Outpatient (CLI) | payer OTHER, SELFPAY ==
[2021-05-30 11:35] VITALS: BMI 32.2
--- NOTE | 2021-06-02 17:03 | RAD_ITS ---
STUDY: X-RAY CHEST REASON FOR EXAM: Female, 36 years old. HYPERTENSION TECHNIQUE: PA and lateral views of the chest. COMPARISON: 05/30/2021 FINDINGS: The lungs are clear and expanded. There is no demonstrated pleural abnormality. Normal size heart. Normal mediastinum and eliana. Normal visualized pulmonary arteries. Normal visualized aortic arch and descending thoracic aorta. Normal visualized thoracic spine. Normal visualized ribs, clavicles, and shoulders. There is no demonstrated abnormality of the visualized soft tissue structures of the upper abdomen. RAD/Chest PA and Lateral IMPRESSION: Normal x-ray examination of the chest. Electronically Signed: Beny Toure MD at 8:08 EDT , Service support ,
[2021-06-02 18:17] LABS: Absolute Lymphocyte Count 2.88 X10^3/uL (0.83-4.51); Absolute Neutrophil Count 6.4 X10^3/uL (2.0-7.7); Basophil# 0.05 X10^3/uL; Basophil% 0.5 % (0-1); Eosinophil# 0.24 X10^3/uL; Eosinophils% 2.3 % (0-5); Hematocrit 40.9 % (37-47); Hemoglobin 13.6 g/dL (12.0-15.0); Lymphocyte # 2.88 X10^3/ul (0.83-4.51); Lymphocyte % 27.9 % (19-41); Mean Corp Hgb Conc 33.3 g/dL (32-36); Mean Corpuscular Hgb 30.3 pg (27.0-32.0); Mean Corpuscular Volume 91.1 fL (81-99); Monocyte# 0.71 X10^3/uL; Monocyte% 6.9 % (0-10); NRBC Flagged by Analyzer 0 % (0-5); Neutrophil % 62.1 % (47-70); Platelet Count 344 K/mm3 (150-450); RBC Distribution Width CV 13.9 % (11.6-14.6); RBC Distribution Width SD 46.4 fl (35.1-43.9); Red Blood Count 4.49 M/mm3 (4.2-5.4); White Blood Count 10.3 K/mm3 (4.4-11.0)
[2021-06-02 18:32] LABS: ALB/GLOB Ratio 1.2 RATIO (0.9-2.4); AST(SGOT) 11 U/L (15-37); Alanine Aminotransfer ALT/SGPT 21 U/L (13-56); Albumin, Serum 4.1 g/dL (3.2-5.0); Alkaline Phosphatase 65 U/L (45-117); Anion Gap 8 (5-15); BUN 12 mg/dL (7-18); BUN/Creat Ratio 14.2 RATIO (10-20); Calcium,Total 8.9 mg/dL (8.5-10.1); Chloride 100 mmol/L (98-107); Cholesterol 228 mg/dL (200); Creatinine, Serum 0.85 mg/dL (0.55-1.02); EST Glomerular Filtration Rate 80 mL/min (>60); Est Glom Filt Rate - Afr Amer 97 mL/min (>60); Globulin 3.5 g/dL (2.2-4.2); Glucose 76 mg/dL (74-106); High Density Lipoprotein 43 mg/dL; Magnesium 2.1 mg/dL (1.6-2.6); Potassium 3.2 mmol/L (3.5-5.1); Protein, Total 7.6 g/dL (6.4-8.2); Sodium Level 139 mmol/L (136-145); T4 Free Direct 0.85 ng/dL (0.76-1.46); Thyroid Stim Hormone (TSH) 4.65 uIU/mL (0.358-3.74); Triglycerides 351 mg/dL; Very Low Density Lipoprotein 70 mg/dL (5-40)
[2021-06-07 16:09] LABS: Thyroid Stim Immunoglob <0.10 IU/L (0.00-0.55)
[2021-06-07 19:27] LABS: Thyroglobulin Antibody < 1.0 IU/mL (0.0-0.9)
== END ==
PROVIDERS: PCP Family Medicine; Referring Provider Family Medicine; Visit Provider Family Medicine
DX: I10 Essential (primary) hypertension (principal); E01.0 Iodine-deficiency related diffuse (endemic) goiter
CPT/HCPCS: 36415; 71046; 80053; 80061; 83735; 84439; 84443; 84445; 85025; 86800

== ENCOUNTER → 2021-06-06 15:40 | Outpatient (CLI) | payer OTHER, SELFPAY ==
[2021-05-30 11:35] VITALS: BMI 32.2
--- NOTE | 2021-06-06 15:43 | US_ITS ---
EXAM DESCRIPTION: CLINICAL HISTORY: 36 years Female, THYROMEGALY COMPARISON: None FINDINGS: Serial longitudinal and transverse scans of the thyroid were obtained utilizing a real-time sector scanner. The thyroid measurements are as follows: Right thyroid lobe: 4.5 x 1.5 x 1.1 cm Left thyroid lobe: 4.2 x 1.7 x 1.3 cm Thyroid isthmus: 0.2 cm The thyroid has a homogeneous appearance. No nodules are seen. No cervical lymphadenopathy is identified. US/Thyroid IMPRESSION: Normal thyroid ultrasound Electronically Signed: Mick Mcdonald DO at 8:12 EDT Tel , Service support ,
--- NOTE | 2021-06-06 15:43 | US_ITS ---
CLINICAL HISTORY: 36 years Female, HYPERTENSION COMPARISON: None TECHNIQUE: Serial longitudinal and transverse scans of the kidneys were obtained utilizing a real-time sector scanner. FINDINGS: The right and left kidneys were examined and have the following measurements: Right Kidney: 11.6 cm. x 5.0 cm. x 4.1 cm. in size with a cortex measuring 1.2 cm in thickness. Left Kidney: 11.9 cm. x 5.3 cm. x 4.5 cm. in size with a cortex measuring 1.3 cm in thickness. No fluid is noted in Morison''s pouch. The right renal parenchyma has a normal echogenic relationship to the liver. The right renal contour is smooth and no evidence hydronephrosis is identified. There is normal Doppler flow to the right kidney. Left renal contour is smooth and no evidence of hydronephrosis is identified. There is normal Doppler flow to the left kidney. The urinary bladder was examined and the distended urine volume in the urinary bladder is 118.86 mL, and the patient is able to completely empty her bladder. Bilateral ureteral jets are identified. US/Kidney and Bladder IMPRESSION: Normal bilateral renal ultrasound Electronically Signed: Mick Mcdonald DO at 8:31 EDT Tel , Service support ,
== END ==
PROVIDERS: PCP Family Medicine; Referring Provider Family Medicine; Visit Provider Family Medicine
DX: E01.0 Iodine-deficiency related diffuse (endemic) goiter (principal); I10 Essential (primary) hypertension
CPT/HCPCS: 76536; 76770

== ENCOUNTER → 2021-06-15 07:37 | Outpatient (CLI) | payer OTHER, SELFPAY ==
[2021-05-30 11:35] VITALS: BMI 32.2
--- NOTE | 2021-06-15 07:40 | RDU_ITS ---
Reason For Study: Hypertension Right Renal Artery Left Renal Artery Right renal artery ostium 100.1/32 Left renal artery ostium 100.1/36.4 RSV/EDV. PSV/EDV. Right renal artery proximal Left renal artery proximal PSV/EDV 148.3/56.2 PSV/EDV. 95.6/32 . Right renal artery mid 135.2/54 Left renal artery mid 137.3/54 PSV/EDV. PSV/EDV . Right renal artery distal Left renal artery distal 117.6/40 119.7/48.1 PSV/EDV. PSV/EDV. Right RAR 1.51. Left RAR 1.40. Right Renal Parenchyma Left Renal Parenchyma Upper Pole Medula 37.2/17.6 Left upper pole medulla 39.8/16.1 PSV/EDV. PSV/EDV . Right upper pole medulla EDR 0.47 . Left upper pole medulla EDR 0.40 . Right upper pole medulla R.I. Left upper pole medulla R.I. 0.60 . 0.53 . UP Cortex 25.6/11.9 PSV/EDV. Upper Cezar Cortx 21.3/9 PSV/EDV. Left upper pole cortex EDR 0.46 . Right upper pole cortex EDR 0.42 . Left upper pole cortex R.I. 0.54 . Right upper pole cortex R.I. 0.58 . Left lower Pole medulla 38.2/16.8 Right lower Pole medulla 34.1/14.5 PSV/EDV . PSV/EDV . Left lower pole medulla EDR 0.44 . Right lower pole medulla EDR 0.42 . Left lower pole medulla R.I. 0.56 . Right lower pole medulla R.I. Lower Pole Cortx 25.6/11.9 PSV/EDV. 0.58 . Left lower pole cortex EDR 0.46 . Lower Pole Cortex 18.8/8.4 PSV/EDV. Left lower pole cortex R.I. 0.54 . Right lower pole cortex EDR 0.34 . Left Renal Hilar Right lower pole cortex R.I. 0.56 . LT Hilar avg 73.3/21.5 PSV/EDV . Right Renal Hilar Left hilar acceleration time 60 Right Hilar avg 70.9/27 PSV/EDV. m/sec. Right hilar acceleration time 60 Left Renal Dimensions m/sec. Left kidney size 11.88 cm . Right Renal Dimensions Left cortical dimension 1.48 cm . Right kidney size 11.33 cm . Right cortical dimension 1.21 cm . Aorta Proximal abdominal aorta 1.66 x 1.64 cm . Proximal abdominal aorta peak systolic velocity is 115.5 cm/sec . Distal abdominal aorta 1.38 x 1.38 cm . Distal abdominal aorta peak systolic velocity is 97.9 cm/sec . VL/Renal Artery Duplex Ultrasound Interpretation Summary Maximal aortic dimensions 1.66 x 1.64 cm proximally with normal aortic flow carmen ocity. Less than 60% stenosis right renal artery Maintained right renal length 11.3 cm Less than 60% stenosis left renal artery Maintained left renal length 11.88 cm Ordering Physician: Mick Marie Referring Physician: Mick Marie Performed By: Malissa Burgos RVT
== END ==
PROVIDERS: PCP Family Medicine; Referring Provider Family Medicine; Visit Provider Family Medicine
DX: I10 Essential (primary) hypertension (principal)
CPT/HCPCS: 93975

== ENCOUNTER → 2021-06-20 12:24 | Outpatient (CLI) | payer OTHER, SELFPAY ==
[2021-05-30 11:35] VITALS: BMI 32.2
[2021-06-20 15:36] LABS: Anion Gap 8 (5-15); BUN 11 mg/dL (7-18); BUN/Creat Ratio 14.9 RATIO (10-20); Chloride 101 mmol/L (98-107); Creatinine, Serum 0.74 mg/dL (0.55-1.02); EST Glomerular Filtration Rate 94 mL/min (>60); Est Glom Filt Rate - Afr Amer 114 mL/min (>60); Glucose 92 mg/dL (74-106); Potassium 3.1 mmol/L (3.5-5.1); Sodium Level 136 mmol/L (136-145)
== END ==
PROVIDERS: PCP Family Medicine; Referring Provider Family Medicine; Visit Provider Family Medicine
DX: E87.6 Hypokalemia (principal)
CPT/HCPCS: 36415; 80048

== ENCOUNTER → 2021-06-30 11:35 | Outpatient (CLI) | payer OTHER, SELFPAY ==
[2021-06-30 15:16] LABS: Anion Gap 7 (5-15); BUN 13 mg/dL (7-18); BUN/Creat Ratio 17.4 RATIO (10-20); Chloride 101 mmol/L (98-107); Creatinine, Serum 0.75 mg/dL (0.55-1.02); EST Glomerular Filtration Rate 93 mL/min (>60); Est Glom Filt Rate - Afr Amer 113 mL/min (>60); Glucose 106 mg/dL (74-106); Potassium 3.3 mmol/L (3.5-5.1); Sodium Level 137 mmol/L (136-145)
== END ==
PROVIDERS: PCP Family Medicine; Visit Provider Family Medicine
DX: E87.6 Hypokalemia (principal)
CPT/HCPCS: 36415; 80048

== ENCOUNTER → 2021-07-08 16:51 | Outpatient (CLI) | payer OTHER, SELFPAY ==
[2021-07-08 17:49] LABS: Potassium 3.1 mmol/L (3.5-5.1)
== END ==
PROVIDERS: PCP Family Medicine; Referring Provider Family Medicine; Visit Provider Family Medicine
DX: E87.6 Hypokalemia (principal)
CPT/HCPCS: 36415; 84132

== ENCOUNTER → 2021-07-28 09:49 | Outpatient (CLI) | payer OTHER, SELFPAY | PROVIDERS: PCP Family Medicine; Referring Provider Family Medicine; Visit Provider Family Medicine | DX: E87.6 Hypokalemia (principal) | CPT/HCPCS: 36415; 84132 ==

== ENCOUNTER → 2021-08-03 14:12 | Outpatient (CLI) | payer OTHER, SELFPAY ==
[2021-08-03 16:57] LABS: Albumin, Serum 4.1 g/dL (3.2-5.0); BUN 12 mg/dL (7-18); BUN/Creat Ratio 15.7 RATIO (10-20); Calcium,Total 9.2 mg/dL (8.5-10.1); Chloride 100 mmol/L (98-107); Creatinine, Serum 0.76 mg/dL (0.55-1.02); EST Glomerular Filtration Rate 91 mL/min (>60); Est Glom Filt Rate - Afr Amer 110 mL/min (>60); Glucose 73 mg/dL (74-106); Magnesium 2.1 mg/dL (1.6-2.6); Phosphorus 3.1 mg/dL (2.5-4.9); Potassium 3.1 mmol/L (3.5-5.1); Sodium Level 138 mmol/L (136-145)
== END ==
PROVIDERS: PCP Family Medicine; Visit Provider Internal Medicine Nephrology
DX: I10 Essential (primary) hypertension (principal); E87.6 Hypokalemia
CPT/HCPCS: 36415; 80069; 82024; 82088; 82533; 83735; 84133; 84244

== ENCOUNTER → 2021-08-04 07:35 | Outpatient (CLI) | payer OTHER, SELFPAY | PROVIDERS: PCP Family Medicine; Referring Provider Internal Medicine Nephrology; Visit Provider Internal Medicine Nephrology | DX: I10 Essential (primary) hypertension (principal) | CPT/HCPCS: 36415; 82533 ==

== ENCOUNTER → 2021-08-09 12:19 | Outpatient (CLI) | payer OTHER, SELFPAY ==
[2021-08-10 14:40] LABS: Adrenocorticotropic Hormone 32.6 pg/mL (7.2-63.3)
== END ==
PROVIDERS: PCP Family Medicine; Visit Provider Internal Medicine Nephrology
DX: I10 Essential (primary) hypertension (principal); E87.6 Hypokalemia
CPT/HCPCS: 36415; 82024

== ENCOUNTER → 2021-08-29 12:00 | Outpatient (CLI) | payer OTHER, SELFPAY ==
[2021-08-29 13:02] LABS: Potassium 3.6 mmol/L (3.5-5.1)
== END ==
PROVIDERS: PCP Family Medicine; Visit Provider Internal Medicine Nephrology
DX: E87.6 Hypokalemia (principal)
CPT/HCPCS: 36415; 84132

== ENCOUNTER → 2021-10-11 10:09 | Outpatient (CLI) | payer OTHER, SELFPAY ==
[2021-10-11 12:40] LABS: Anion Gap 9 (5-15); BUN 8 mg/dL (7-18); BUN/Creat Ratio 10.9 RATIO (10-20); Calcium,Total 8.8 mg/dL (8.5-10.1); Chloride 108 mmol/L (98-107); Creatinine, Serum 0.74 mg/dL (0.55-1.02); EST Glomerular Filtration Rate 94 mL/min (>60); Est Glom Filt Rate - Afr Amer 114 mL/min (>60); Glucose 82 mg/dL (74-106); Sodium Level 138 mmol/L (136-145)
== END ==
PROVIDERS: PCP Family Medicine; Visit Provider Internal Medicine Nephrology
DX: E87.6 Hypokalemia (principal)
CPT/HCPCS: 36415; 80048

== ENCOUNTER 2021-11-24 09:15 | Outpatient (CLI) | payer OTHER, SELFPAY ==
[2021-11-24 12:57] LABS: Anion Gap 6 (5-15); BUN 8 mg/dL (7-18); BUN/Creat Ratio 9.3 RATIO (10-20); Calcium,Total 8.9 mg/dL (8.5-10.1); Chloride 108 mmol/L (98-107); Creatinine, Serum 0.86 mg/dL (0.55-1.02); EST Glomerular Filtration Rate 79 mL/min (>60); Est Glom Filt Rate - Afr Amer 96 mL/min (>60); Glucose 74 mg/dL (74-106); Potassium 4.1 mmol/L (3.5-5.1); Sodium Level 137 mmol/L (136-145)
== END 2021-11-24 23:59 | disposition short-term general hospital (02) ==
PROVIDERS: PCP Family Medicine; Visit Provider Internal Medicine Nephrology
DX: E87.6 Hypokalemia (principal)
CPT/HCPCS: 36415; 80048

== ENCOUNTER → 2022-03-16 | Outpatient (CLI) | payer BC, SELFPAY ==
[2022-03-16 16:54] LABS: BUN 12 mg/dL (7-18); BUN/Creat Ratio 13.6 RATIO (10-20); Calcium,Total 9.3 mg/dL (8.5-10.1); Chloride 110 mmol/L (98-107); Creatinine, Serum 0.88 mg/dL (0.55-1.02); EST Glomerular Filtration Rate 76 mL/min (>60); Est Glom Filt Rate - Afr Amer 92 mL/min (>60); Glucose 90 mg/dL (74-106); Phosphorus 3.4 mg/dL (2.5-4.9); Potassium 4.2 mmol/L (3.5-5.1); Sodium Level 139 mmol/L (136-145)
== END | disposition home or self-care (01) ==
LOC: POLAB3 13:30
PROVIDERS: PCP Family Medicine; Visit Provider Internal Medicine Nephrology
DX: I10 Essential (primary) hypertension (principal)
CPT/HCPCS: 36415; 80069

== ENCOUNTER 2022-03-26 22:21 | Emergency (ER) | payer BC, SELFPAY ==
--- NOTE | 2022-03-26 22:21 | ED.RN ---
INFORMED DR DAVENPORT OF [facility], PER DR. DAVENPORT PUT PT IN A ROOM, DO NOT CALL STROKE TEAM.
[2022-03-26 22:22] VITALS: BP 162/109; PULSE 98; RESP 14; TEMP 37; O2SAT 100; BMI 28.5
--- NOTE | 2022-03-26 22:36 | EDS_ITS ---
HPI History of Present Illness Chief Complaint: Neuro S/Sx Informant: patient Onset/Context/Timing Onset: Today (Several hours ago, unknown exact time) Context: Gradual Onset Timing: Continuous Quality: Tingling/numbness Location: Left lower face Current Severity: Moderate Maximum Severity: Moderate Worsened by: Nothing Relieved by: Nothing Associated Symptoms Associated Symptoms: Blurry vision/halo temporal visual field left eye only Narrative Narrative: Patient started with a headache just over 24 hours ago, gradual in onset, she states in the last 3 days her blood pressures been out of control, high anywhere from 150-180 systolic despite taking her blood pressure medications as prescribed, and in addition tonight taking an additional clonidine 0.1 mg for blood pressures over in the 170s. She states she has been under a lot of stress lately and has had a very bad day, feels like she is having an anxiety attack which she has a history of as well. She states several hours ago she developed halo type visual disturbance in the lateral field of her left eye only without any visual field loss, followed by tingling in her left lower face. She had this before, she had a negative CT and was admitted to the hospital had a negative MRI and discharged home. No history of stroke. Does not take aspirin or any other blood thinning medications. [facility] Medical History Essential hypertension Hypertensive heart disease without HF (heart failure) Migraine Mixed hyperlipidemia PSVT (paroxysmal supraventricular tachycardia) Tachycardia TIA (transient ischemic attack) WPW (Ihdnn-Doycbevzu-Qtktq syndrome) Home Medications amiloride 5 mg tablet 20 mg PO DAILY tab 02/16/22 [History Last Taken Unknown] clonidine HCl 0.1 mg tablet 0.2 mg PO DAILY tab 02/16/22 [History Last Taken Unknown] hydralazine 25 mg tablet 25 mg PO TID 02/16/22 [History Last Taken Unknown] verapamil 180 mg 24 hr capsule,extended release 180 mg PO BID #60 cap 03/06/22 [Rx Last Taken Unknown] Allergy/AdvReac Type Severity Reaction Status Date / Time Iodinated Contrast Media Allergy Unknown Itching Verified 02/16/22 13:44 Family History Other Cancer Diabetes Heart disease Hypertension Surgical History History of hysterectomy Social History Smoking Status: Former smoker alcohol intake: current details: occasional substance use type: does not use caffeine: Yes (occasional) ROS ROS ED Constitutional Constitutional ED: Denies chills or fever(s) Eyes Eyes: Reports blurry vision left (lateral visual field); Denies diplopia ENT ENT ED: Denies ear pain or sore throat Cardiovascular Cardiovascular: Denies chest pain or palpitations Respiratory/Chest Respiratory/Chest: Denies cough or dyspnea Gastrointestinal Gastrointestinal: Reports nausea and vomiting; Denies abdominal pain or diarrhea Genitourinary Genitourinary ED: Denies dysuria or urinary frequency Musculoskeletal Musculoskeletal: Denies back pain or myalgias Integumentary Denies abscess or rash Neurologic Neurologic: Reports headache(s) and paresthesias; Denies weakness Psychiatric Psychiatric: Reports anxiety; Denies suicidal ideation or suicidal thoughts EXAM Physical Exam Const Vital Signs: 03/26/22 22:22 03/26/22 22:40 Temperature 98.6 F Temperature Source Temporal Pulse Rate 98 72 Respiratory Rate 14 18 Blood Pressure 162/109 H 129/94 H Blood Pressure Mean 126 105 Pulse Ox 100 100 Oxygen Delivery Method Room Air Room Air HEENT Reports normocephalic and moist mucous membranes atraumatic Eyes PERRL, EOMs intact bilaterally and conjunctivae normal Eyes Narrative: minimal photophobia Neck no lymphadenopathy, supple and no meningeal signs Resp normal respiratory effort and clear to auscultation bilaterally Cardio regular rate, regular rhythm, S1 normal heart sound, S2 normal heart sound and no murmurs Rate: Negative for bradycardia or tachycardic GI non-tender and non-distended Palpation: soft Extremity normal to inspection and full ROM Neuro oriented x3 and CN's II-XII intact bilaterally Neuro Narrative: mild decreased sensation left lower face; visual nova intact, no facial droop, speech is normal. NIHSS 1. Sensorium / Orientation: awake and alert Speech: speech normal Gait (Neuro): normal gait Motor Exam: strength 5/5 throughout Psych mental status grossly normal Mood & Affect: anxious Skin Lesions: no lesions Rashes: no rashes MDM MDM MDM Narrative Medical decision making narrative: Basic labs, CT head due to her high blood pressure and symptoms, blood pressure medication labetalol and migraine treatment medications were ordered. On recheck prior to giving the medications, the patient's blood pressure was 129/94 so the labetalol was held, and prior to my being able to have a discussion with the patient, she told the nurse that her anxiety cannot handle this and she eloped. The nurse offered to have me come and speak with the patient prior to leaving but she refused. As I discussed with the patient, since she had similar symptoms before with a negative stroke work-up, my suspicion is that this was migraine in nature, however I recommended doing the testing because of the elevation of her blood pressure despite her being compliant with her medications and actually taking an additional clonidine, and it was clear that she understood all of that. Lab Data Attestation: I reviewed the patient's lab results. Labs: Laboratory Results - last 24 hr 03/26/22 22:49 Sodium 139 Potassium 3.6 Chloride 113 H Carbon Dioxide 19.0 L Anion Gap 7 BUN 7 Creatinine 0.88 Estim Creat Clear Calc 85.12 Est GFR (MDRD) Af Amer 92 Est GFR (MDRD) Non-Af 76 BUN/Creatinine Ratio 7.9 L Glucose 92 Calcium 8.8 Discharge Plan Triage Chief Complaint: Neuro S/Sx ED Provider: Kd Taylor Dx/Rx/DC Orders Clinical Impression: Accelerated hypertension, Cephalgia, Left facial numbness, Visual disturbance Prescriptions: No Action amiloride 5 mg tablet 20 mg PO DAILY RF: 0 clonidine HCl 0.1 mg tablet 0.2 mg PO DAILY RF: 0 hydralazine 25 mg tablet 25 mg PO TID RF: 0 verapamil 180 mg capsule,ext rel. pellets 24 hr 180 mg PO BID Qty: 60 RF: 11 Primary Care Provider: Mick Marie Referrals: Mick Marie MD [Primary Care Provider] - Disposition Disposition: Elopement Discharge Date/Time: 03/26/22 23:05
[2022-03-26 22:40] VITALS: BP 129/94; PULSE 72; RESP 18; O2SAT 100
[2022-03-26] MEDS: Metoclopramide 10 MG/2 ML Vial IV (22:46)
--- NOTE | 2022-03-26 22:49 | ED.RN ---
Patients blood pressure 129/94. Labetolol held at this time. Dr. Taylor notified
--- NOTE | 2022-03-26 23:00 | ED.RN ---
This RN called to room. Patient's state's My anxiety is through the roof. I have to go. Patient was actively removing her own IV. Patient encouraged to stay and speak with the doctor, but states she is leaving now. This RN removed patient's IV. Patient refused to sign AMA paperwork. Patient ambulatory to exit. Dr. Taylor notified that patient left.
[2022-03-26 23:07] LABS: Anion Gap 7 (5-15); BUN 7 mg/dL (7-18); BUN/Creat Ratio 7.9 RATIO (10-20); Calcium,Total 8.8 mg/dL (8.5-10.1); Chloride 113 mmol/L (98-107); Creatinine, Serum 0.88 mg/dL (0.55-1.02); EST Glomerular Filtration Rate 76 mL/min (>60); Est Glom Filt Rate - Afr Amer 92 mL/min (>60); Estimated Creatinine Clearance 85.12 ml/min; Glucose 92 mg/dL (74-106); Potassium 3.6 mmol/L (3.5-5.1); Sodium Level 139 mmol/L (136-145)
== END 2022-03-26 23:05 | disposition left against medical advice (07) ==
PROVIDERS: Emergency Provider Emergency Medicine; PCP Family Medicine; Visit Provider Emergency Medicine
DX: G43.909 Migraine, unspecified, not intractable, without status migrainosus (principal); I11.9 Hypertensive heart disease without heart failure; R20.0 Anesthesia of skin; H53.8 Other visual disturbances; E78.2 Mixed hyperlipidemia; Z86.73 Personal history of transient ischemic attack (TIA), and cerebral infarction without residual deficits; Z79.899 Other long term (current) drug therapy; Z87.891 Personal history of nicotine dependence; Z53.29 Procedure and treatment not carried out because of patient's decision for other reasons; R11.2 Nausea with vomiting, unspecified; F41.9 Anxiety disorder, unspecified
CPT/HCPCS: 80048; 96374; 99284; A4216

== ENCOUNTER → 2022-04-21 | Outpatient (CLI) | payer BC, SELFPAY ==
[2022-04-21 18:10] LABS: Anion Gap 7 (5-15); BUN 9 mg/dL (7-18); BUN/Creat Ratio 11.5 RATIO (10-20); Calcium,Total 8.8 mg/dL (8.5-10.1); Chloride 110 mmol/L (98-107); Creatinine, Serum 0.78 mg/dL (0.55-1.02); EST Glomerular Filtration Rate 88 mL/min (>60); Est Glom Filt Rate - Afr Amer 106 mL/min (>60); Glucose 97 mg/dL (74-106); Potassium 3.7 mmol/L (3.5-5.1); Sodium Level 139 mmol/L (136-145)
== END | disposition home or self-care (01) ==
LOC: MFPLAB 15:31
PROVIDERS: PCP Family Medicine; Referring Provider Family Medicine; Visit Provider Internal Medicine Nephrology
DX: I10 Essential (primary) hypertension (principal)
CPT/HCPCS: 36415; 80048

== ENCOUNTER → 2022-08-15 | Outpatient (CLI) | payer BC, SELFPAY ==
--- NOTE | 2022-08-15 16:20 | RAD_ITS ---
HISTORY: TOS. TECHNIQUE: Cervical spine 5 views. COMPARISON: None. FINDINGS: VERTEBRAE: Minimal chronic-appearing anterior wedging of C5. No acute fracture identified. ALIGNMENT: No significant anterior or posterior subluxation. Straightening of the cervical lordosis. INTERVERTEBRAL DISCS: Disc heights preserved. Small osteophytes with minimal foraminal narrowing at C4-5 bilaterally. SOFT TISSUES: No significant prevertebral soft tissue swelling. RAD/Cerv Spine 4 or 5 Views IMPRESSION: No acute fracture or dislocation identified in the cervical spine. Very mild degenerative change. Electronically Signed: Liya Low MD at 10:47 EDT ,
== END | disposition home or self-care (01) ==
PROVIDERS: PCP Family Medicine
DX: M79.642 Pain in left hand (principal)
CPT/HCPCS: 72050

== ENCOUNTER → 2023-01-11 | Outpatient (CLI) | payer BC, SELFPAY ==
[2023-01-11 13:04] LABS: BUN 7 mg/dL (7-18); Creatinine, Serum 0.84 mg/dL (0.55-1.02); Glucose 83 mg/dL (74-106)
[2023-01-11 13:05] LABS: Anion Gap 9 (5-15); BUN/Creat Ratio 8.3 RATIO (10-20); Calcium,Total 9.9 mg/dL (8.5-10.1); Chloride 107 mmol/L (98-107); EST Glomerular Filtration Rate 80 mL/min (>60); Est Glom Filt Rate - Afr Amer 97 mL/min (>60); Potassium 4.5 mmol/L (3.5-5.1); Sodium Level 138 mmol/L (136-145)
== END | disposition home or self-care (01) ==
LOC: POLAB3 09:43
PROVIDERS: PCP Family Medicine; Visit Provider Internal Medicine Nephrology
DX: I10 Essential (primary) hypertension (principal)
CPT/HCPCS: 36415; 80048

== ENCOUNTER → 2023-04-20 | Outpatient (CLI) | payer BC, SELFPAY ==
--- NOTE | 2023-04-20 16:55 | RAD_ITS ---
STUDY: X-RAY - LEFT KNEE REASON FOR EXAM: Female, 37 years old. PAIN TECHNIQUE: 3 view(s) of the knee. COMPARISON: None. FINDINGS: Normal visualized distal femur. Normal visualized proximal tibia and fibula. Normal proximal tibiofibular articulation. There is no demonstrated fracture. Normal medial femorotibial compartment. Normal lateral femorotibial compartment. Normal patellofemoral articulation. There is no demonstrated joint effusion. The soft tissue structures are unremarkable. RAD/Knee 3 Views IMPRESSION: Normal x-ray examination of the knee. Electronically Signed: Jose Brambila MD at 17:48 EDT ,
--- NOTE | 2023-04-20 16:55 | RAD_ITS ---
STUDY: X-RAY - RIGHT KNEE REASON FOR EXAM: Female, 37 years old. PAIN TECHNIQUE: 3 view(s) of the knee. COMPARISON: None. FINDINGS: Normal visualized distal femur. Normal visualized proximal tibia and fibula. Normal proximal tibiofibular articulation. There is no demonstrated fracture. Normal medial femorotibial compartment. Normal lateral femorotibial compartment. Normal patellofemoral articulation. There is no demonstrated joint effusion. The soft tissue structures are unremarkable. RAD/Knee 3 Views IMPRESSION: Normal x-ray examination of the knee. Electronically Signed: Jose Brambila MD at 17:50 EDT ,
--- NOTE | 2023-04-20 16:55 | RAD_ITS ---
INDICATION: PAIN EXAMINATION/TECHNIQUE: X-RAY - XR Hips Bilateral with Pelvis when performed; 2 Views : AP view pelvis with AP and lateral views bilateral hips COMPARISON: None. FINDINGS: PELVIC BONES: No displaced fracture, destructive or sclerotic lesions. Note that overlapping bowel shadows may however obscure fine detail. Sacroiliac joints are unremarkable. No widening of the pubic symphysis. HIPS: Symmetric and adequately aligned bilateral hips with preserved joint spaces. No acute fracture or dislocation. Bilateral acetabular marginal osteophytosis demonstrated, with superimposed shadows overlying femoral heads. SOFT TISSUES: No soft tissue swelling or gas. Small calcified pelvic phleboliths and small pelvic metallic clip noted. RAD/Hips B/L min 2 views w/ Pelvis IMPRESSION: Pelvis and bilateral hips with no acute osseous abnormality. Electronically Signed: Jamie Bustillo MD at 22:41 EDT ,
== END | disposition home or self-care (01) ==
LOC: MTRAD 16:53
PROVIDERS: PCP Family Medicine; Referring Provider Family Medicine; Visit Provider Family Medicine
DX: M25.551 Pain in right hip (principal); M25.552 Pain in left hip
CPT/HCPCS: 73521; 73562

== ENCOUNTER → 2023-09-05 | Outpatient (CLI) | payer BC, SELFPAY ==
[2023-09-05 15:25] LABS: Color, Urine Yellow (Yellow); Glucose, Dipstick Normal (Normal); Ketone-Dipstick Negative (Negative); Leukocyte Esterase-Dipstick 25 /ul (Negative); Nitrite-Dipstick Negative (Negative); Occult Blood-Urine Negative /ul (Negative); Protein-Dipstick Negative (Negative); Urine Bilirubin Dipstick Negative (Negative); Urine Clarity Clear (Clear); Urine Urobilinogen Normal (Normal)
[2023-09-05 16:07] LABS: Albumin, Serum 3.9 g/dL (3.2-5.0); BUN 6 mg/dL (7-18); BUN/Creat Ratio 8.2 RATIO (10-20); Calcium,Total 8.5 mg/dL (8.5-10.1); Chloride 110 mmol/L (98-107); Creatinine, Serum 0.73 mg/dL (0.55-1.02); EST Glomerular Filtration Rate 94 mL/min (>60); Est Glom Filt Rate - Afr Amer 114 mL/min (>60); Glucose 92 mg/dL (74-106); Phosphorus 2.8 mg/dL (2.5-4.9); Potassium 3.6 mmol/L (3.5-5.1); Sodium Level 142 mmol/L (136-145); T4 Free Direct 0.92 ng/dL (0.76-1.46); Thyroid Stim Hormone (TSH) 2.21 uIU/mL (0.358-3.74)
== END | disposition home or self-care (01) ==
LOC: POLAB3 13:39
PROVIDERS: PCP Family Medicine; Visit Provider Internal Medicine Nephrology
DX: I10 Essential (primary) hypertension (principal); L65.9 Nonscarring hair loss, unspecified; R82.90 Unspecified abnormal findings in urine
CPT/HCPCS: 36415; 80069; 81002; 84439; 84443

== ENCOUNTER → 2023-10-04 | Outpatient (CLI) | payer BC, SELFPAY ==
[2023-10-04 17:45] LABS: Absolute Lymphocyte Count 2.63 X10^3/uL (0.83-4.51); Absolute Neutrophil Count 4.4 X10^3/uL (2.0-7.7); Basophil# 0.04 X10^3/uL; Basophil% 0.5 % (0-1); Eosinophil# 0.01 X10^3/uL; Eosinophils% 0.1 % (0-5); Hematocrit 45.6 % (37-47); Lymphocyte # 2.63 X10^3/ul (0.83-4.51); Lymphocyte % 34.9 % (19-41); Mean Corp Hgb Conc 32.9 g/dL (32-36); Mean Corpuscular Hgb 29.7 pg (27.0-32.0); Mean Corpuscular Volume 90.3 fL (81-99); Mean Platelet Vol. 10.6 fl (6.2-12.0); Monocyte# 0.45 X10^3/uL; NRBC Flagged by Analyzer 0 % (0-5); Neutrophil % 58.4 % (47-70); Platelet Count 316 K/mm3 (150-450); RBC Distribution Width CV 13.1 % (11.6-14.6); RBC Distribution Width SD 43.2 fl (35.1-43.9); Red Blood Count 5.05 M/mm3 (4.2-5.4); White Blood Count 7.5 K/mm3 (4.4-11.0)
[2023-10-04 18:08] LABS: ALB/GLOB Ratio 1.1 RATIO (0.9-2.4); AST(SGOT) 6 U/L (15-37); Alanine Aminotransfer ALT/SGPT 10 U/L (13-56); Albumin, Serum 4.3 g/dL (3.2-5.0); Alkaline Phosphatase 52 U/L (45-117); Anion Gap 6 (5-15); BUN 8 mg/dL (7-18); BUN/Creat Ratio 8.6 RATIO (10-20); Chloride 110 mmol/L (98-107); Creatinine, Serum 0.93 mg/dL (0.55-1.02); EST Glomerular Filtration Rate 71 mL/min (>60); Est Glom Filt Rate - Afr Amer 86 mL/min (>60); Globulin 3.8 g/dL (2.2-4.2); Glucose 73 mg/dL (74-106); Potassium 3.7 mmol/L (3.5-5.1); Protein, Total 8.1 g/dL (6.4-8.2); Sodium Level 138 mmol/L (136-145)
== END | disposition home or self-care (01) ==
PROVIDERS: PCP Family Medicine; Visit Provider Nurse Practitioner Family
DX: R11.2 Nausea with vomiting, unspecified (principal)
CPT/HCPCS: 36415; 80053; 85025

== ENCOUNTER → 2023-12-25 | Outpatient (CLI) | payer BC, SELFPAY ==
--- OUTSIDE RECORDS SUMMARY | 2023-12-25 10:45 | XMS RPT_ITS | CCD ---
Author Name Unknown Address [id number] [place] [address] Organization [facility] Care Team Providers Care Php Wordpress Developer Name Role Phone Zhao Resendez Primary Care Provider MARCO A BUI Primary Care Unavailable TOY VALENZUELA Referring Unavailable CATHLEEN MARTINEZ Attending Unavailable MARCO A BUI Primary Care Unavailable CATHLEEN MARTINEZ Attending Unavailable CATHLEEN MARTINEZ Referring Unavailable Marco A Bui MD Primary Care Provider Cathleen Martinez MD Unavailable [phone] PHYSICIAN, NONE Primary Care Physician Unavailab Zhao Joaquin DO Primary Care Provider ZHAO RESENDEZ Primary Care Unavailable JOVITA OSORIO Attending Unavailable ZHAO RESENDEZ Primary Care Unavailable ZHAO RESENDEZ Referring Unavailable ROSEANNA MCGREGOR Attending Unavailable ZHAO RESENDEZ Primary Care Unavailable MAICO RODRIGUEZ Referring Unavailable ZHAO RESENDEZ Primary Care Unavailable ZHAO RESENDEZ Primary Care Unavailable PCP, Other Primary Care Physician [phone] PCP, OTHER Primary Care Unavailable Dr. CLOTILDE SPENCE Attending Unavailable ADARSH ENGLE Attending Unavailable PCP, OTHER Primary Care Unavailable PCP, OTHER Primary Care Unavailable Dr. CLOTILDE SPENCE Attending Unavailable Unavailable Primary Care Provider UnavailJUNIOR Cruz Attending Unavailable MARCO A BUI Primary Care Unavailable MARCO A BUI MD Primary Care Physician [phone] DR TAYE JOSE MD Attending Unavailab greer PHYSICIAN, NONE Primary Care Unavailable MARCO A BUI MD Primary Care Unavailable SOL PALACIOS MD Attending Unavailable Allergies Allergy Classification Reported Allergen(s) Allergy Type Date of Onset Reaction(s) Facility (1 source) Diatrizoate Drug Allergy 03-22-2022 [facility] (2 sources) Adhesive agent; Translations: [adhesive] Drug allergy (disorder) [facility] [place] (3 sources) Iodinated contrast media (substance); Translations: [IV Dye, Iodine Containing] Drug allergy (disorder) 03-22-2022 Itching [facility] [place] (1 source) Iodine Drug Allergy 2022 Itching [facility] NEGATED: Highlighted row has been ruled out! (2 sources) natural latex rubber; Translations: [LATEX, NATURAL RUBBER] Drug allergy (disorder) [facility] [place] Medications Current Medications Medication Drug Class(es) Dates Sig (Normalized) Sig (Original) amoxicillin 875 mg oral tablet (1 source) Penicillin-class Antibacterial Start: 12-30-2022 End: 01-04-2023 take 1 tablet by mouth twice daily amoxicillin (AMOXIL) 875 mg tablet Indications: Dental infection Take 1 tablet by mouth twice daily for 5 days. 10 tablet 0 12/30/2022 01/04/2023 Active Completed/Discontinued Medications Medication Drug Class(es) Dates Sig (Normalized) Sig (Original) aMILoride hydrochloride 5 mg oral tablet (9 sources) Potassium-sparin g Diuretic Start: 12-24-2022 take 3 tablets by mouth once daily aMILoride (MIDAMOR) 5 mg tablet Take 15 mg by mouth once daily. 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-Fqokrvzmw-Qy ite pattern] Onset: 03-14-2022 Chronic Disorders of teeth and jaw (1 source) Infection of tooth; Translations: [Periapical abscess without sinus] Episodic Essential hypertension (5 sources) Hypertensive disorder; Translations: [Essential (primary) hypertension] Onset: 01-15-2013 05-27-2014 Chronic Fluid and electrolyte disorders (2 sources) Hypokalemia; Translations: [Hypokalemia] Onset: 07-19-2022 Episodic Hypertension with complications and secondary hypertension (4 sources) Benign secondary hypertension; Translations: [Hypertension secondary to endocrine disorders] Onset: 07-19-2022 Chronic Immunizations and screening for infectious disease (2 sources) Contact with and (suspected) exposure to other viral communicable diseases; Translations: [Contact w and exposure to oth viral communicable diseases] Onset: 09-18-2022 Episodic Other circulatory disease (3 sources) Personal history of other diseases of the circulatory system; Translations: [Personal history of other diseases of the circulatory system] Onset: 03-14-2022 Episodic Other circulatory disease (2 sources) History of transient ischemic attack; Translations: [History of TIA] 09-18-2022 Episodic Other circulatory disease (1 source) Personal history of transient ischemic attack (TIA), and cerebral infarction without residual deficits; Translations: [Prsnl hx of TIA (TIA), and cereb infrc w/o resid deficits] Onset: 09-20-2022 Episodic Other connective tissue disease (1 source) Pain of left hand; Translations: [Pain in left hand] Episodic Other nervous system disorders (5 sources) Brachial plexus disorders; Translations: [Brachial plexus disorders] Onset: 08-15-2022 Chronic Other nervous system disorders (4 sources) Thoracic outlet syndrome; Translations: [Thoracic Outlet Syndrome] 09-21-2022 Chronic Other nervous system disorders (2 sources) Anesthesia of skin; Translations: [Anesthesia of skin] Onset: 09-20-2022 Episodic Screening and history of mental health and substance abuse codes (1 source) Personal history of nicotine dependence; Translations: [Personal history of nicotine dependence] Onset: 09-20-2022 Episodic Sprains and strains (2 sources) Strain of muscle, fascia and tendon of lower back, initial encounter; Translations: [Strain of muscle, fascia and tendon of lower back, initial encounter] Onset: 06-30-2023 Episodic Unclassified (2 sources) New Patient; Translations: [New Patient] Onset: 03-22-2022 Unclassified (1 source) Contact with and (suspected) exposure to COVID-19; Translations: [Contact with and (suspected) exposure to COVID-19] Onset: 09-20-2022 Unclassified (1 source) Encounter for screening for COVID-19; Translations: [Encounter for screening for COVID-19] Onset: 09-18-2022 Past or Other Problems Problem Classification Problem Date Documented Date Episodic/Chronic Cardiac dysrhythmias (5 sources) Palpitations; Translations: [Palpitations] Onset: 05-27-2014 07-04-2016 Episodic Other nervous system disorders (1 source) Paresthesia of hand ; Translations: [Paresthesia of skin] Onset: 12-05-2013 12-05-2013 Episodic Other nutritional; endocrine; and metabolic disorders (1 source) Overweight; Translations: [Overweight] Onset: 01-15-2013 01-15-2013 Episodic Other screening for suspected conditions (not mental disorders or infectious disease) (1 source) Electrocardiogram abnormal; Translations: [Abnormal electrocardiogram [ECG] [EKG]] Onset: 05-27-2014 05-27-2014 Episodic Otitis media and related conditions (1 source) Serous otitis media; Translations: [Unspecified nonsuppurative otitis media, unspecified ear] Onset: 12-05-2013 12-05-2013 Episodic Unclassified (1 source) Encounter for screening for COVID-19; Translations: [Encounter for screening for COVID-19] Onset: 09-18-2022 Results Test Name Value Interpretation Reference Range Facil ity Vital Signs Date Time Vital Sign Value Performing Clinician Facility 10-03-2023 08:26-0500 Diastolic Blood Pressure Non-Invasive 79 mm[Hg] SOL PALACIOS MD [facility] 10-03-2023 08:26-0500 Heart rate 58 /min SOL PALACIOS MD [facility] 10-03-2023 08:26-0500 Respiratory rate 18 /min SOL PALACIOS MD [facility] 10-03-2023 08:26-0500 Systolic Blood Pressure Non-Invasive 120 mm[Hg] SOL PALACIOS MD [facility] 10-03-2023 06:44-0500 Blood Pressure Location SOL PALACIOS MD [facility] 10-03-2023 06:44-0500 Blood Pressure Method SOL PALACIOS MD [facility] 10-03-2023 06:44-0500 Body height 167.6 cm SOL PALACIOS MD [facility] 10-03-2023 06:44-0500 Body temperature 98.96 [degF] SOL PALACIOS MD [facility] 10-03-2023 06:44-0500 Body weight 77.3 kg SOL PALACIOS MD [facility] 10-03-2023 06:44-0500 Diastolic Blood Pressure Non-Invasive 90 mm[Hg] SOL PALACIOS MD [facility] 10-03-2023 06:44-0500 Heart rate 64 /min SOL PALACIOS MD [facility] 10-03-2023 06:44-0500 Respiratory rate 16 /min SOL PALACIOS MD [facility] 10-03-2023 06:44-0500 Systolic Blood Pressure Non-Invasive 134 mm[Hg] SOL PALACIOS MD [facility] 12-30-2022 09:23-0500 Body temperature 98.6 [degF] Jim Bell MD Work Phone: [facility] 12-30-2022 09:23-0500 Body weight 79.47 kg Jim Bell MD Work Phone: [facility] 12-30-2022 09:23-0500 Diastolic blood pressure 94 mm[Hg] Jim Bell MD Work Phone: [facility] 12-30-2022 09:23-0500 Heart rate 86 /min Jim Bell MD Work Phone: [facility] 12-30-2022 09:23-0500 Respiratory rate 18 /min Jim Bell MD Work Phone: [facility] 12-30-2022 09:23-0500 SaO2% (BldA) [Mass fraction] 99 % Jim Bell MD Work Phone: [facility] 12-30-2022 09:23-0500 Systolic blood pressure 142 mm[Hg] Jim Bell MD Work Phone: [facility] 09-21-2022 17:20-0500 Body height 170.18 cm MD Clotilde Spence MD [facility] [place] 09-21-2022 17:20-0500 Body mass index (BMI) [Ratio] 28.18 kg/m2 MD Clotilde Spence MD [facility] 09-21-2022 17:20-0500 Body temperature 97.7 [degF] MD Clotilde Spence MD [facility] 09-21-2022 17:20-0500 Body weight 81.6 kg MD Clotilde Spence MD [facility] 09-21-2022 17:20-0500 Diastolic blood pressure 72 mm[Hg] MD Clotilde Spence MD [facility] 09-21-2022 17:20-0500 Heart rate 87 /min MD Clotilde Spence MD [facility] 09-21-2022 17:20-0500 Inhaled oxygen concentration 97 % MD Clotilde Spence MD [facility] 09-21-2022 17:20-0500 Respiratory rate 18 /min MD Clotilde Spence MD [facility] 09-21-2022 17:20-0500 Systolic blood pressure 112 mm[Hg] MD Clotilde Spence MD [facility] [place] 08-15-2022 09:32-0400 Body height 170.2 cm Jovita Osorio MD Work Phone: [facility] 08-15-2022 09:32-0400 Body mass index (BMI) [Ratio] 28.54 kg/m2 Jovita Osorio MD Work Phone: [facility] 08-15-2022 09:32-0400 Body weight 82.64 kg Jovita Osorio MD Work Phone: [facility] 08-15-2022 09:32-0400 Diastolic blood pressure 85 mm[Hg] Jovita Osorio MD Work Phone: [facility] 08-15-2022 09:32-0400 Heart rate 75 /min Jovita Osorio MD Work Phone: [facility] 08-15-2022 09:32-0400 Systolic blood pressure 137 mm[Hg] Jovita Osorio MD Work Phone: [facility] Encounters Encounter Date Encounter Type Care Provider Facility Start: 10-03-2023 End: 10-03-2023 Emergency department patient visit MARCO A BUI MD Facility:B Start: 10-03-2023 End: 10-03-2023 Emergency department patient visit SOL PALACIOS MD [facility] Start: 08-13-2023 End: 08-13-2023 Emergency department patient visit DR TAYE JOSE MD Facility:[facility] Start: 06-30-2023 End: 06-30-2023 Emergency department patient visit [facility] Start: 12-30-2022 End: 12-30-2022 ambulatory Facility:[facility] Start: 12-30-2022 End: 12-30-2022 Patient encounter procedure Jim Bell MD Work Phone: [facility] Procedures Date Procedure Procedure Detail Performing Clinician Start: 03-02-2021 Echo tthrc r-t 2d w/wom-mode compl spec&colr d Omid Sky MD Work Phone: Recorder, device (physical object) DR MAICO CHUN MD Plan of Treatment Date Care Activity Detail Author Start: 05-28-2030 DTaP/Tdap/Td vaccine (2 - Td) DTaP/Tdap/Td vaccine (2 - Td) [facility] Work Phone: Start: 11-05-2022 DEPRESSION ASSESSMENT DEPRESSION ASS ESSMENT [facility] Start: 10-31-2022 End: 10-31-2022 Patient encounter procedure 10/31/2022 Office Visit Vascular Surgery Jovita Osorio MD [facility] [address] [place] [address] Vascular Surgery [facility] [place] Start: 08-15-2022 End: 08-15-2023 XR Cervical spine 4 Views XR SPINE CERVICAL 4 VIEWS Imaging Routine Left hand pain Expected: 08/15/2022, Expires: 08/15/2023 [facility] Immunizations Immunization Date Immunization Notes Care Provider Fa cility 10-03-2021 influenza virus vaccine, unspecified formulation Jovita Osorio MD Work Phone: [facility] 08-09-2013 influenza virus vaccine, unspecified formulation Jim Bell MD Work Phone: [facility] Work Phone: 08-05-2012 influenza virus vaccine, unspecified formulation Jim Bell MD Work Phone: [facility] Work Phone: 08-26-2011 influenza virus vaccine, live, attenuated, for intranasal use Jim Bell MD Work Phone: [facility] Work Phone: 07-31-2009 influenza virus vaccine, unspecified formulation Jim Bell MD Work Phone: [facility] Work Phone: Payers Date Payer Category Payer Self-pay 2022 Unknown [id number] 2022 Unknown [id number] 2021 Private Health Insurance [id number] 1984 Unknown [id number] 2.16. [id number] 1984 Unknown [id number] 2.16. [id number] 1984 Unknown [id number] 2.16. [id number] 1984 Unknown [id number] 2.16. [id number] 1984 Unknown [id number] 2.16. [id number] 1984 Unknown [id number] 2.16. [id number] 1984 Unknown [id number] 2.16. [id number] 1984 Unknown [id number] 2.16.8 [id number] 1984 Unknown [id number] 2.16.8 [id number] 1984 Unknown [id number] 2.16.8 [id number] 1984 Unknown [id number] 2.16. [id number] 1984 Unknown [id number] 2.16.8 [id number] 1984 Unknown [id number] 2.16.8 [id number] Unknown [id number] Social History Date Type Detail Facility Start: 07-04-2016 Tobacco smoking stat [facility] Unknown if ever smoked [facility] Work Phone: Start: 1985 Sex Assigned At Not on file S [facility] Work Phone: Start: 07-19-2022 Tobacco smoking stat us NHIS Occasional tobacco smoker [facility] End: 02-22-2014 History of tobacco use Cigarette Smoker [facility] Start: 07-19-2022 End: 12-30-2022 Tobacco use and exposure Smokeless tobacco non-user [facility] Start: 07-09-2022 End: 07-19-2022 Exposure to SARS-CoV-2 (event) Not sure [facility] Start: 04-14-2019 Tobacco smoking status Light t obacco smoker (finding) [facility] Sex Assigned At Female [facility] Start: 08-15-2022 End: 12-30-2022 Tobacco smoking status NHIS Ex-smoker [facility] End: 02-22-2014 History of tobacco use Current smoker [facility] Start: 08-15-2022 Alcohol intake Current non-dr linker up of alcohol (finding) [facility] Start: 08-15-2022 Tobacco Comment less than 1/[address] [facility] Start: 12-30-2022 Alcohol intake Not Asked Ani Nesbitt Functional Status Date Assessment Result Facility 10-03-2023 Functional Status Room check performed [facility] 10-03-2023 Functional Status [facility] spital [facility] Mental Status Date Assessment Result Facility 10-03-2023 Mental Status Orientation Oriented x 4 [facility] 10-03-2023 Mental Status [facility] Clinical Notes 03-02-2021 to 10-03-2023 Jim Bell MD - 12/30/2022 9:27 AM Chris Carvalho PA-C - 08/15/2022 9:45 AM Nabeel Carvalho PA-C - 08/15/2022 9:45 AM Dominick Osorio MD - 08/15/2022 9:45 AM EDT Note Date & Type Note Facility 10-03-2023 Hospital Discharge instructions Patient Education 10/03/2023 07:50:11 Vomiting (Adult) Vomiting (Adult) Vomiting is a common symptom that may be due to different causes. These include gastroenteritis ( stomach flu ), food poisoning and gastritis. There are other more serious causes of vomiting which may be hard to diagnose early in the illness. Therefore, it is important to watch for the warning signs listed below. The main danger from repeated vomiting is dehydration. This is due to excess loss of water and minerals from the body. When this occurs, your body fluids must be replaced. Home care If symptoms are severe, rest at home for the next 24 hours. Because your symptoms may be from an infection, wash your hands often and well. If soap and water are not available, use alcohol-based campus recruiter to keep from spreading the infection to others. Wash your hands for at least 20 seconds. Humming the happy birthday song twice while you wash is an easy way to make sure you've washed for 20 seconds. Wash your hands after using the toilet, before and after preparing food, before eating food, after changing a diaper, cleaning a wound, caring for a sick person, and blowing your nose, coughing, or sneezing. You should also wash your hands after caring for someone who is sick, touching pet food, or treats, and touching an animal, or animal waste. You may use acetaminophen or NSAID medicines like ibuprofen or naproxen to control fever, unless another medicine was prescribed. If you have chronic liver or kidney disease or ever had a stomach ulcer or gastrointestinal bleeding, talk with your doctor before using these medicines. Aspirin should never be used in anyone under 18 years of age who is ill with a fever. It may cause severe liver damage. Don't use NSAID medicines if you are already taking one for another condition (like arthritis) or are on aspirin (such as for heart disease, or after a stroke) Don't use tobacco and or drink alcohol, which may worsen your symptoms. If medicines for vomiting were prescribed, take as directed. Once vomiting stops, then follow these guidelines: During the first 12 to 24 hours follow the diet below: Fruit juices. Apple, grape juice, clear fruit drinks, and electrolyte replacement drinks. Beverages. Soft drinks without caffeine; mineral water (plain or flavored), decaffeinated tea and coffee. Soups. Clear broth and bouillon Desserts. Plain gelatin, ice pops, and fruit juice bars. As you feel better, you may add 6 to 8 ounces of yogurt per day. During the next 24 hours you may add the following to the above: Hot cereal, plain toast, bread, rolls, crackers Plain noodles, rice, mashed potatoes, chicken noodle or rice soup Unsweetened canned fruit such as applesauce, bananas (avoid pineapple and citrus) Limit caffeine and chocolate. No spices or seasonings except salt. During the next 24 hours: Gradually resume a normal diet, as you feel better and your symptoms lessen. Follow-up care Follow up with your healthcare provider, or as advised. When to seek medical advice Call your healthcare provider right away if any of these occur: Constant right-sided lower belly pain or increasing general belly pain Continued vomiting (unable to keep liquids down) for 24 hours Vomiting blood or coffee grounds Swollen belly Frequent diarrhea (more than 5 times a day); blood (red or black color) or mucus in diarrhea Reduced urine output or extreme thirst Weakness, dizziness or fainting Unusually drowsy or confused Fever of 100.4 F (38 C) oral or higher, or as directed Yellow color of the eyes or skin [id number] [employer]. [address] [place] [address]. All rights reserved. This information is not intended as a substitute for professional medical care. Always follow your healthcare professional's instructions. Follow Up Care 10/03/2023 06:42:49 With:[facility] A [facility]UI [facility] [address] [phone] Business (1) When:2-4 days Comments:Follow-up as needed if symptoms persist.Start with clear liquid diet and slowly advance as tolerated.Use Tylenol or Advil for fever and discomfort as needed.May use xznb-[id number] antacids like Maalox, Mylanta or Tums as needed for upset stomach.Use Zofran as prescribed for nausea and vomiting as needed.Return to the ED if symptoms worsen. [facility] 10-03-2023 Note Discharge Instructions Thank you for allowing [facility] to assist you with your healthcare needs. The following is important discharge information regarding your hospital visit. Diagnosis from Today's Visit Vomiting What to Do Next Instructions from Your Care Team No qualifying data available. Post Acute Orders No qualifying data available. You Need to Schedule the Following Appointments Follow Up with MARCO A BUI When Within 2-4 days Why: Follow-up as needed if symptoms persist. Start with clear liquid diet and slowly advance as tolerated. Use Tylenol or Advil for fever and discomfort as needed. May use dbzo-uii-lmuvhjn antacids like Maalox, Mylanta or Tums as needed for upset stomach. Use Zofran as prescribed for nausea and vomiting as needed. Return to the ED if symptoms worsen. Where: [address] [place] [address]- [phone] Business (1) Allergies NKA Medications Please ask your primary doctor or pharmacist before taking any other medication not listed, including over the counter drugs, herbal medications, vitamins and or supplements as they may interact with your home medications. What How Much When Why Instructions Last Dose New ondansetron (Zofran 4 mg oral tablet) 1 tab(s) by mouth Every 6 hours as needed for As needed for nausea and vomiting Duration: 3 Days Printed Prescription Unchanged cloNIDine (cloNIDine 0.3 mg oral tablet) 1 tab(s) by mouth Two (2) times a day Hypertension Unchanged hydrochlorothiazide-lisinopril (hydrochlorothiazide-lisinopril 12.5 mg-10 mg oral tablet) 1 tab(s) by mouth Every day Unchanged potassium chloride (potassium chloride 10 mEq oral tablet, extended release) 1 tab(s) by mouth Two (2) times a day Duration: 7 Days Unchanged pseudoephedrine (pseudoephedrine 30 mg oral tablet) TAKE 4 TABLET BY MOUTH TWICE A DAY FOR 4 DAYS Please take this list to your next doctor s visit. Bring all medications you take, including over the counter medications, herbals and other supplements with you to your doctor s visit. Patients and families are reminded to discard old lists and to update any records with all medication providers or retail pharmacies. Medication Leaflets ondansetron (oral) (on WILD jaramillo) What is the most important information I should know about ondansetron? You should not use ondansetron if you are also using apomorphine (Apokyn). What is ondansetron? Ondansetron blocks the actions of chemicals in the body that can trigger nausea and vomiting. Ondansetron is used to prevent nausea and vomiting that may be caused by surgery, cancer chemotherapy, or radiation treatment. Ondansetron may be used for purposes not listed in this medication guide. What should I discuss with my health care provider before taking ondansetron? You should not use ondansetron if: you are also using apomorphine (Apokyn); or you are allergic to ondansetron or similar medicines (dolasetron, granisetron, palonosetron). To make sure ondansetron is safe for you, tell your doctor if you have: liver disease; an electrolyte imbalance (such as low levels of potassium or magnesium in your blood); congestive heart failure, slow heartbeats; a personal or family history of long QT syndrome; or a blockage in your digestive tract (stomach or intestines). Ondansetron is not expected to harm an unborn baby. Tell your doctor if you are . It is not known whether ondansetron passes into breast milk or if it could harm a nursing baby. Tell your doctor if you are breast-feeding a baby. Ondansetron is not approved for use by anyone younger than 4 years old. Ondansetron orally disintegrating tablets may contain phenylalanine. Tell your doctor if you have phenylketonuria (PKU). How should I take ondansetron? Follow all directions on your prescription label. Do not take this medicine in larger or smaller amounts or for longer than recommended. Ondansetron can be taken with or without food. The first dose of ondansetron is usually taken before the start of your surgery, chemotherapy, or radiation treatment. Follow your doctor's dosing instructions very carefully. Take the ondansetron regular tablet with a full glass of water. To take the orally disintegrating tablet (Zofran ODT): Keep the tablet in its blister pack until you are ready to take it. Open the package and peel back the foil. Do not push a tablet through the foil or you may damage the tablet. Use dry hands to remove the tablet and place it in your mouth. Do not swallow the tablet whole. Allow it to dissolve in your mouth without chewing. Swallow several times as the tablet dissolves. To use ondansetron oral soluble film (strip) (Zuplenz): Keep the strip in the foil pouch until you are ready to use the medicine. Using dry hands, remove the strip and place it on your tongue. It will begin to dissolve right away. Do not swallow the strip whole. Allow it to dissolve in your mouth without chewing. Swallow several times after the strip dissolves. If desired, you may drink liquid to help swallow the dissolved strip. Wash your hands after using Zuplenz. Measure liquid medicine with the dosing syringe provided, or with a special dose-measuring spoon or medicine cup. If you do not have a dose-measuring device, ask your pharmacist for one. Store at room temperature away from moisture, heat, and light. Store liquid medicine in an upright position. What happens if I miss a dose? Take the missed dose as soon as you remember. Skip the missed dose if it is almost time for your next scheduled dose. Do not take extra medicine to make up the missed dose. What happens if I overdose? Seek emergency medical attention or call the Poison Help line at . Overdose symptoms may include sudden loss of vision, severe constipation, feeling light-headed, or fainting. What should I avoid while taking ondansetron? Ondansetron may impair your thinking or reactions. Be careful if you drive or do anything that requires you to be alert. What are the possible side effects of ondansetron? Get emergency medical help if you have signs of an allergic reaction: rash, hives; fever, chills, difficult breathing; swelling of your face, lips, tongue, or throat. Call your doctor at once if you have: severe constipation, stomach pain, or bloating; headache with chest pain and severe dizziness, fainting, fast or pounding heartbeats; fast or pounding heartbeats; jaundice (yellowing of the skin or eyes); blurred vision or temporary vision loss (lasting from only a few minutes to several hours); high levels of serotonin in the body--agitation, hallucinations, fever, fast heart rate, overactive reflexes, nausea, vomiting, diarrhea, loss of coordination, fainting. Common side effects may include: diarrhea or constipation; headache; drowsiness; or tired feeling. This is not a complete list of side effects and others may occur. Call your doctor for medical advice about side effects. You may report side effects to FDA at 1-400-GYA-8592. What other drugs will affect ondansetron? Ondansetron can cause a serious heart problem, especially if you use certain medicines at the same time, including antibiotics, antidepressants, heart rhythm medicine, antipsychotic medicines, and medicines to treat cancer, malaria, HIV or AIDS. Tell your doctor about all medicines you use, and those you start or stop using during your treatment with ondansetron. Taking ondansetron while you are using certain other medicines can cause high levels of serotonin to build up in your body, a condition called 'serotonin syndrome,' which can be fatal. Tell your doctor if you also use: medicine to treat depression; medicine to treat a psychiatric disorder; a narcotic (opioid) medication; or medicine to prevent nausea and vomiting. This list is not complete and many other drugs can interact with ondansetron. This includes prescription and owul-rgl-zzpomot medicines, vitamins, and herbal products. Give a list of all your medicines to any healthcare provider who treats you. Where can I get more information? Your pharmacist can provide more information about ondansetron. Remember, keep this and all other medicines out of the reach of children, never share your medicines with others, and use this medication only for the indication prescribed. Every effort has been made to ensure that the information provided by [employer]') is accurate, up-to-date, and complete, but no guarantee is made to that effect. Drug information contained herein may be time sensitive. [employer] information has been compiled for use by healthcare practitioners and consumers in the [place] and therefore [employer] does not warrant that uses outside of the [place] are appropriate, unless specifically indicated otherwise. [employer] drug information does not endorse drugs, diagnose patients or recommend therapy. [employer] drug information is an informational resource designed to assist licensed healthcare practitioners in caring for their patients and/or to serve consumers viewing this service as a supplement to, and not a substitute for, the expertise, skill, knowledge and judgment of healthcare practitioners. The absence of a warning for a given drug or drug combination in no way should be construed to indicate that the drug or drug combination is safe, effective or appropriate for any given patient. [employer] does not assume any responsibility for any aspect of healthcare administered with the aid of information [employer] provides. The information contained herein is not intended to cover all possible uses, directions, precautions, warnings, drug interactions, allergic reactions, or adverse effects. If you have questions about the drugs you are taking, check with your doctor, nurse or pharmacist. Copyright [employer] Version: 16.. Revision Date: 06/07/2023. Education Materials Vomiting (Adult) Vomiting is a common symptom that may be due to different causes. These include gastroenteritis ( stomach flu ), food poisoning and gastritis. There are other more serious causes of vomiting which may be hard to diagnose early in the illness. Therefore, it is important to watch for the warning signs listed below. The main danger from repeated vomiting is dehydration. This is due to excess loss of water and minerals from the body. When this occurs, your body fluids must be replaced. Home care If symptoms are severe, rest at home for the next 24 hours. Because your symptoms may be from an infection, wash your hands often and well. If soap and water are not available, use alcohol-based campus recruiter to keep from spreading the infection to others. Wash your hands for at least 20 seconds. Humming the happy birthday song twice while you wash is an easy way to make sure you've washed for 20 seconds. Wash your hands after using the toilet, before and after preparing food, before eating food, after changing a diaper, cleaning a wound, caring for a sick person, and blowing your nose, coughing, or sneezing. You should also wash your hands after caring for someone who is sick, touching pet food, or treats, and touching an animal, or animal waste. You may use acetaminophen or NSAID medicines like ibuprofen or naproxen to control fever, unless another medicine was prescribed. If you have chronic liver or kidney disease or ever had a stomach ulcer or gastrointestinal bleeding, talk with your doctor before using these medicines. Aspirin should never be used in anyone under 18 years of age who is ill with a fever. It may cause severe liver damage. Don't use NSAID medicines if you are already taking one for another condition (like arthritis) or are on aspirin (such as for heart disease, or after a stroke) Don't use tobacco and or drink alcohol, which may worsen your symptoms. If medicines for vomiting were prescribed, take as directed. Once vomiting stops, then follow these guidelines: During the first 12 to 24 hours follow the diet below: Fruit juices. Apple, grape juice, clear fruit drinks, and electrolyte replacement drinks. Beverages. Soft drinks without caffeine; mineral water (plain or flavored), decaffeinated tea and coffee. Soups. Clear broth and bouillon Desserts. Plain gelatin, ice pops, and fruit juice bars. As you feel better, you may add 6 to 8 ounces of yogurt per day. During the next 24 hours you may add the following to the above: Hot cereal, plain toast, bread, rolls, crackers Plain noodles, rice, mashed potatoes, chicken noodle or rice soup Unsweetened canned fruit such as applesauce, bananas (avoid pineapple and citrus) Limit caffeine and chocolate. No spices or seasonings except salt. During the next 24 hours: Gradually resume a normal diet, as you feel better and your symptoms lessen. Follow-up care Follow up with your healthcare provider, or as advised. When to seek medical advice Call your healthcare provider right away if any of these occur: Constant right-sided lower belly pain or increasing general belly pain Continued vomiting (unable to keep liquids down) for 24 hours Vomiting blood or coffee grounds Swollen belly Frequent diarrhea (more than 5 times a day); blood (red or black color) or mucus in diarrhea Reduced urine output or extreme thirst Weakness, dizziness or fainting Unusually drowsy or confused Fever of 100.4 F (38 C) oral or higher, or as directed Yellow color of the eyes or skin [id number] [employer]. [address] [place] [address]. All rights reserved. This information is not intended as a substitute for professional medical care. Always follow your healthcare professional's instructions. Additional Information VACCINATE! IT SAVES LIVES! Members of the community who have not yet received the COVID-19 vaccine and would like to receive it can visit one of [facility] vaccine clinics. There are many vaccine clinic locations within the [facility]. For locations and available times, please visit [email or web address] It is important to note that some COVID mobile vaccine clinics are held outdoors and may be canceled in rainy or stormy conditions. To learn more about pediatric vaccinations (ages 5-11), we invite you to visit the [facility] webpage. [email or web address] [email or web address] To learn more about the COVID-19 vaccine, we invite you to visit the CDC website for a list of frequently asked questions. https://www.cdc.gov/coronavirus/2 019-ncov/vaccines/faq.html [facility] Patient Portal Access Instructions: Stay connected with your healthcare team and access your personal medical information anytime with the [facility] Patient Portal. If you would like a full copy of your medical records please contact the [facility] Medical Records Department Sunday through Sunday between 8a.m. and 4:30p.m. Please follow the directions below to access the portal: 1.Access the email account you provided upon registration to the [facility].2.Look for an invitation email from [facility].3.Open the email and access the invitation link: Accept Invitation to [facility].Fill in the required nova to create your account. Sign into [email or web address] with your username and password that you created in the above steps to stay up to date. You can then view a summary of results, a summary of your visits, and the ability to download your summaries to your computer or send the information securely to a physician. Remember that your healthcare information is confidential, so carefully consider who you will allow to register on the [facility] Patient Portal for access to your information. You can also access the [facility] Patient Portal on the [employer]. Simply click on Health Records under Health Data and then click on the [employer] logo. HOW TO SAFELY DISPOSE OF PRESCRIPTION MEDICATIONS Please use one of the following methods to safely dispose of your unused medications. 1.Use a drug disposal kit: the drug disposal pouch allows you to safely discard your old and unused drugs. Ask your nurse to give you one when you are discharged.2.Visit a local take-back location: Many local pharmacies and police departments have programs that collect old and unwanted prescription drugs. Call your local pharmacy or go to http://Exos.Idea.me/6G5Bq9d to find one close to you.3.Make use of household items: Use cat litter or old coffee grounds to dispose medications if other options are not available. Mix your drugs with these household products, seal them in an airtight container and throw it into the garbage. Call [facility]: [phone] to be sure your drugs can be disposed of in this way. Some medicines may require a different approach.4.Never flush your medications down the toilet. IF YOU HAVE BEEN PRESCRIBED AN OPIOIDS FOR PAIN If you have been prescribed an opioid (such as hydrocodone, oxycodone or morphine), it is critical to understand the possible side effects and risks of opioid pain medications. Even when taken as directed, opioids can have several side effects including: Tolerance, meaning you might need to take more of a medication for the same pain relief. Nausea, vomiting and/or constipation. Sleepiness, dizziness, dry mouth, confusion, depression or itching. Physical dependence, meaning you have withdrawal symptoms when a medication is stopped ? this can develop within a few days. KNOW YOUR RESPONSIBILITIES It is important to know exactly how much and how often to take the opioid pain medications you are prescribed. Never take opioids in higher amounts or more often than prescribed. Do not combine opioids with alcohol or other drugs that cause drowsiness, such as benzodiazepines, also known as benzos, including diazepam and alprazolam, muscle relaxants or sleep aids. Never sell or share prescription opioids. This is illegal. Store opioids in a secure place and out of reach of others (including children, family, friends and visitors). The last page(s) of this document has been signed and retained as a CHART COPY Signatures Patient Education Materials Vomiting (Adult) Medication Leaflets ondansetron (oral) My discharge plan and instructions have been reviewed and explained to me and IEARL SARAH A understand my current condition and have read and understand these discharge instructions. I have received a written copy of the plan/instructions. If I have questions, I am aware that I should contact my doctor. 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 Author Type: Physician Type: Progress Notes Filed: 12/30/2022 10:52 AM Note Text: Patient presents with: Pain: Pt reported (RT) facial /gum swelling x2 days. HPI: Dental pain: Duration: 3 days Location: right upper outer gum by the molars Character: sore Radiation: No. Aggravating: chewing Associated: right cheeks is swelling now Pertinent negatives: Denies fever, chills, malaise, body aches, tooth pain PAST MEDICAL HISTORY Diagnosis Date Hypertension Overweight(278.02) Ehdjn-Dvbzkvixn-Lzhjw (WPW) pattern MEDICATIONS: Current Outpatient Medications Medication Sig aMILoride (MIDAMOR) 5 mg tablet Take 15 mg by mouth once daily. hydrALAZINE (APRESOLINE) 25 mg tablet TAKE 1 TABLET BY MOUTH THREE TIMES A DAY FOR 90 DAYS cloNIDine TTS (CATAPRES-TTS) 0.3 mg/24 hr apply 1 patch every week for 28 DAYS verapamil SR (CALAN SR, ISOPTIN SR) 120 mg CR tablet Take 120 mg by mouth once daily. No current facility-administered medications for this visit. ALLERGIES: ALLERGIES Allergen Reactions Iodinated Contrast * Itching Iodine Itching VITALS: BP 142/94 Pulse 86 Temp 37 ?C (98.6 ?F) (Temporal) Resp 18 Wt 79.5 kg (175 lb 3.2 oz) SpO2 99% BMI 28.07 kg/m? PHYSICAL EXAM: GEN: Pleasant, in no acute distress. Accompanied by her . HEENT: PERRL, EOMI, conjunctiva clear Sinuses: non-tender frontal sinus, non-tender maxillary sinuses Face: Swelling right lateral cheek over the maxilla Throat: moist mucous membranes, erythema and mild swelling of the outer gingiva of the right first molar, no exudate Neck: supple, no thyromegaly, no lymphadenopathy ASSESSMENT/PLAN: 1. Dental infection - ICD9: 522.4, ICD10: K04.7 - AMOXICILLIN 875 MG TABLET Plans to follow-up with dentist. Jim Bell MD [facility] 12-30-2022 History of Present illness Narrative Patient presents with: Pain: Pt reported (RT) facial /gum swelling x2 days. HPI: Dental pain: Duration: 3 days Location: right upper outer gum by the molars Character: sore Radiation: No. Aggravating: chewing Associated: right cheeks is swelling now Pertinent negatives: Denies fever, chills, malaise, body aches, tooth pain PAST MEDICAL HISTORY Diagnosis Date Hypertension Overweight(278.02) Zjqsi-Pgcnkknnp-Wrgbd (WPW) pattern MEDICATIONS: Current Outpatient Medications Medication Sig aMILoride (MIDAMOR) 5 mg tablet Take 15 mg by mouth once daily. hydrALAZINE (APRESOLINE) 25 mg tablet TAKE 1 TABLET BY MOUTH THREE TIMES A DAY FOR 90 DAYS cloNIDine TTS (CATAPRES-TTS) 0.3 mg/24 hr apply 1 patch every week for 28 DAYS verapamil SR (CALAN SR, ISOPTIN SR) 120 mg CR tablet Take 120 mg by mouth once daily. No current facility-administered medications for this visit. ALLERGIES: ALLERGIES Allergen Reactions Iodinated Contrast * Itching Iodine Itching VITALS: BP 142/94 Pulse 86 Temp 37 C (98.6 F) (Temporal) Resp 18 Wt 79.5 kg (175 lb 3.2 oz) SpO2 99% BMI 28.07 kg/m PHYSICAL EXAM: GEN: Pleasant, in no acute distress. Accompanied by her . HEENT: PERRL, EOMI, conjunctiva clear Sinuses: non-tender frontal sinus, non-tender maxillary sinuses Face: Swelling right lateral cheek over the maxilla Throat: moist mucous membranes, erythema and mild swelling of the outer gingiva of the right first molar, no exudate Neck: supple, no thyromegaly, no lymphadenopathy ASSESSMENT/PLAN: 1. Dental infection - ICD9: 522.4, ICD10: K04.7 - AMOXICILLIN 875 MG TABLET Plans to follow-up with dentist. Jim Bell MD documented in this encounter [facility] 09-21-2022 Evaluation + Plan note Assessment and Plan from 09/21/2022 5:21 PM:Why You Were Here: Left-sided thoracic outlet syndrome.Brief Discharge Plan: Normal postoperative course. Pain medication as needed. [facility] 09-21-2022 Hospital Discharge instructions Activity on Discharge from 09/21/2022 5:21 PM:Activity Restrictions : No Tub Baths,No Pushing or PullingDriving : May return safely to operating a motor vechicle/drivingDriving allowed in: : 2May Drive in: : Week(s)Stairs : As toleratedBathing : May Shower,No Tub BathsMay shower in: : 3May shower in: : Day(s) Chest Pain/Heart Attack Information from 09/21/2022 5:20 PM:Has Patient had Chest Pain or an MD during this Visit? : NoIt is important to understand risk factors for heart disease : It is important to understand risk factors for heart diseaseso you can work with your doctor to help prevent further cardiac : so you can work with your doctor to help prevent further cardiac injury. COPD Information from 09/21/2022 5:20 PM:Does Patient have a problem/diagnosis of COPD? : No Diet Plan/Instructions at Discharge from 09/21/2022 5:21 PM:Diet Restrictions : Resume Home Diet ED Discharge Education Evaluation from 09/21/2022 10:48 AM:Educ Topic #1 : Yes Education materials given during your stay from 09/21/2022 5:20 PM:Learning Barrier : None Medication Plan/Information for Discharge from 09/21/2022 5:21 PM:Discharge Medication : Printed Patient Transfer Information from 09/21/2022 5:21 PM:Course of treatment during hospitalization: : Left 1st rib resection.Diet Restrictions : Resume Home DietSpecial Instructions : Dry dressing to incision as needed. Physician Follow-up Plan/Appointments from 09/21/2022 5:23 PM:Discharge Physician: : Dr SpencePatient stated Primary Care Provider : yvon Special Plan/Instructions for Discharge from 09/21/2022 5:21 PM:Special Instructions : Dry dressing to incision as needed. Stroke/TIA Discharge Information from 09/21/2022 5:20 PM:Does the Patient Have a Problem/Diagnosis of Stroke this visit? : NoStroke Risk Factor Goal : Understands Personal Risk FactorsStroke Signs and Symptoms Goal : Understands Warning Signs and Symptoms of StrokeStroke Adequate Medication Management Goal : Adequate Medication ManagementIt is important to understand risk factors for stroke : It is important to understand risk factors for strokeso you can work with your doctor to help prevent another stroke. : so you can work with your doctor to help prevent another stroke.High Blood Pressure Txt : High Blood Pressure: This is the single most important risk factor for strokeSmoking Txt : Smoking doubles your risk of stroke.You can find a program to help you quit by calling: : You can find a program to help you quit by calling:Diabetes Txt : Diabetes increases your risk of stroke.Atrial Fib Txt : Atrial Fibrillation (AF) is an irregular heartbeat that changes how your heart works.Carotid Txt : Carotid or other artery diseaseCholesterol Txt : High CholesterolWarning Signs of Stroke Txt : What to look for: Warning Signs and Symptoms of a Stroke.What to do Txt : If you have any of these signs, CALL right away:What to do symptoms Txt : What to do if you or someone you know is having symptoms: CALL [facility] Txt : What to do when you leave the hospital Wound Care Instruction for Discharge from 09/21/2022 5:21 PM:Change Bandage : Keep bandage clean and drySpecial Instructions : Dry dressing to incision as needed. [facility] 08-15-2022 History and physical note Images from the original note were not included. Eloise Elliott is a 37 y.o. female she was seen at the [facility] in consultation for evaluation of thoracic outlet syndrome. She reports that in May of this year she began to experience Left forearm pain that radiates to the 1-3rd digits (previously 4-5th digits). Pain is described as sharp and pins/needles sensations. Provoked with 90 degree and 180 degree abduction. Associated symptoms include numbness of the hand. She denies any inciting incidents, trauma or surgeries. She was evaluated by a chiropractor without much relief. She underwent brachial EMG and was told this was normal. She also underwent arterial testing with TOS maneuvers and reports that her pressure dropped so much in the LUE that her PCP wanted to refer her for surgery. The patient's allergies, medications, past medical and surgical history, as well as family and social histories were reviewed. Allergies Allergen Reactions Contrast Dye [Ivp Dye, Iodine Containing] Current Outpatient Medications: aMILoride 5 MG tablet, Take 5 mg by mouth 4 times daily., Disp: , Rfl: cloNIDine 0.1 MG tablet, Take 0.1 mg by mouth 2 times daily., Disp: , Rfl: gabapentin 300 MG capsule, TAKE 1 CAPSULE BY MOUTH IN THE MORNING, 1 CAPSULE IN THE AFTERNOON, AND 2 CAPSULES AT BEDTIME, Disp: , Rfl: hydrALAZINE 25 MG tablet, Take 25 mg by mouth 3 times daily., Disp: , Rfl: verapamil 180 MG Tab CR, Take 180 mg by mouth 2 times daily., Disp: , Rfl: Past Medical History: Diagnosis Date Arrhythmia Chest pressure Essential hypertension, benign SOB (shortness of breath) TIA (transient ischemic attack) 2011 numbness in arms and face, blurred vision 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 Past Surgical History: Procedure Laterality Date WISDOM TEETH EXTRACTION 2015 HYSTERECTOMY SUBTOTAL ABDOMINAL LAPAROSCOPIC 2010 TUBAL LIGATION 2007 The patient has a family history of Social History Socioeconomic History Marital status: Spouse name: Not on file Number of children: Not on file Years of education: Not on file Highest education level: Not on file Occupational History Not on file Tobacco Use Smoking status: Former Years: 7.00 Types: Cigarettes Quit date: 02/22/2014 Years since quittin.4 Smokeless tobacco: Never Tobacco comments: less than 1/2 PPD Substance and Sexual Activity Alcohol use: No Drug use: No Sexual activity: Not on file Other Topics Concern Not on file Social History Narrative Not on file Social Determinants of Health Financial Resource Strain: Not on file Food Insecurity: Not on file Transportation Needs: Not on file Physical Activity: Not on file Stress: Not on file Social Connections: Not on file Intimate Partner Violence: Not on file Housing Stability: Not on file Review of Systems Cardiovascular: Negative for chest pain, claudication Respiratory: Negative for shortness of breath Gastrointestinal: Negative for nausea, vomiting and abdominal pain Musculoskeletal: Negative for myalgias, back pain and joint pain Neurological: Negative for focal weakness, loss of consciousness Lymph/Heme: Negative for bruises/bleeds easily All other systems are negative. PHYSICAL EXAM: BP 137/85 (BP Location: Right arm, BP Position: Sitting) Pulse 75 Ht 1.702 m (5' 7 ) Wt 82.6 kg (182 lb 3.2 oz) BMI 28.54 kg/m Smoking Status Former Constitutional: She is oriented to person, place, and time and well-developed, well-nourished, and in no distress Psychiatric: Mood, memory and affect normal HENT: Head: Normocephalic and atraumatic Neck: Normal range of motion. Neck supple. Normal carotid pulses Cardiovascular: Normal rate, regular rhythm, S1 normal and S2 normal. No extrasystoles are present. RIght radial - 2+ Left radial - 2+ Right brachial - 2+ Left brachial - 2+ Right SCA - 2+ Left SCA - 2+ No peripheral aneurysms felt in the upper extremities Pulmonary/Chest: Effort normal. No respiratory distress, no decreased breath sounds, no wheezes, no rhonchi, no rales Abdominal: Normal appearance. Musculoskeletal: Normal range of motion; strength 5/5. Positive EAST test of the LUE. There is no tenderness to palpation of the left coracoid process nor scalene insertions. There is tightness of the trapezius muscles noted on the left side. Neurological: She is alert and oriented to person, place, and time. She has normal sensation, normal strength and intact cranial nerves Skin: Skin is warm, dry and intact. No cyanosis. Nails show no clubbing. Bilateral good capillary refill, warm, pink. No ulcerations present. IMAGING REVIEWED: Arterial testing with TOS maneuvers 07/21/2022 report from outside institution: ASSESSMENT/PLAN: Pleasant 37 yof with LUE pain with c/f neurogenic TOS. We reassured her that in the absence of a clot as evidenced by her studies and exam, there is no indication for urgent surgical release nor threat to her arm. Recommend continued work-up with TOS focused PT, c-spine XR to assess for cervical rib. We also recommend evaluation with Dr. Jaramillo and Dr. Cortes for ultrasound of the pectoralis insertion to assess for pect minor syndrome. Alanna Carvalho PA-C Division of Vascular Diseases and Surgery Associated attestation - Jovita Osorio MD - 08/15/2022 12:19 PM EDT Please see my separate note. [facility] Work Phone: 08-15-2022 History and physical note Images from the original note were not included. Eloise Elliott is a 37 y.o. female she was seen at the [facility] in consultation for evaluation of thoracic outlet syndrome. She reports that in May of this year she began to experience Left forearm pain that radiates to the 1-3rd digits (previously 4-5th digits). Pain is described as sharp and pins/needles sensations. Provoked with 90 degree and 180 degree abduction. Associated symptoms include numbness of the hand. She denies any inciting incidents, trauma or surgeries. She was evaluated by a chiropractor without much relief. She underwent brachial EMG and was told this was normal. She also underwent arterial testing with TOS maneuvers and reports that her pressure dropped so much in the LUE that her PCP wanted to refer her for surgery. The patient's allergies, medications, past medical and surgical history, as well as family and social histories were reviewed. Allergies Allergen Reactions Contrast Dye [Ivp Dye, Iodine Containing] Current Outpatient Medications: aMILoride 5 MG tablet, Take 5 mg by mouth 4 times daily., Disp: , Rfl: cloNIDine 0.1 MG tablet, Take 0.1 mg by mouth 2 times daily., Disp: , Rfl: gabapentin 300 MG capsule, TAKE 1 CAPSULE BY MOUTH IN THE MORNING, 1 CAPSULE IN THE AFTERNOON, AND 2 CAPSULES AT BEDTIME, Disp: , Rfl: hydrALAZINE 25 MG tablet, Take 25 mg by mouth 3 times daily., Disp: , Rfl: verapamil 180 MG Tab CR, Take 180 mg by mouth 2 times daily., Disp: , Rfl: Past Medical History: Diagnosis Date Arrhythmia Chest pressure Essential hypertension, benign SOB (shortness of breath) TIA (transient ischemic attack) 2011 numbness in arms and face, blurred vision 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 Past Surgical History: Procedure Laterality Date WISDOM TEETH EXTRACTION 2015 HYSTERECTOMY SUBTOTAL ABDOMINAL LAPAROSCOPIC 2010 TUBAL LIGATION 2007 The patient has a family history of Social History Socioeconomic History Marital status: Spouse name: Not on file Number of children: Not on file Years of education: Not on file Highest education level: Not on file Occupational History Not on file Tobacco Use Smoking status: Former Years: 7.00 Types: Cigarettes Quit date: 02/22/2014 Years since quittin.4 Smokeless tobacco: Never Tobacco comments: less than 1/2 PPD Substance and Sexual Activity Alcohol use: No Drug use: No Sexual activity: Not on file Other Topics Concern Not on file Social History Narrative Not on file Social Determinants of Health Financial Resource Strain: Not on file Food Insecurity: Not on file Transportation Needs: Not on file Physical Activity: Not on file Stress: Not on file Social Connections: Not on file Intimate Partner Violence: Not on file Housing Stability: Not on file Review of Systems Cardiovascular: Negative for chest pain, claudication Respiratory: Negative for shortness of breath Gastrointestinal: Negative for nausea, vomiting and abdominal pain Musculoskeletal: Negative for myalgias, back pain and joint pain Neurological: Negative for focal weakness, loss of consciousness Lymph/Heme: Negative for bruises/bleeds easily All other systems are negative. PHYSICAL EXAM: BP 137/85 (BP Location: Right arm, BP Position: Sitting) Pulse 75 Ht 1.702 m (5' 7 ) Wt 82.6 kg (182 lb 3.2 oz) BMI 28.54 kg/m Smoking Status Former Constitutional: She is oriented to person, place, and time and well-developed, well-nourished, and in no distress Psychiatric: Mood, memory and affect normal HENT: Head: Normocephalic and atraumatic Neck: Normal range of motion. Neck supple. Normal carotid pulses Cardiovascular: Normal rate, regular rhythm, S1 normal and S2 normal. No extrasystoles are present. RIght radial - 2+ Left radial - 2+ Right brachial - 2+ Left brachial - 2+ Right SCA - 2+ Left SCA - 2+ No peripheral aneurysms felt in the upper extremities Pulmonary/Chest: Effort normal. No respiratory distress, no decreased breath sounds, no wheezes, no rhonchi, no rales Abdominal: Normal appearance. Musculoskeletal: Normal range of motion; strength 5/5. Positive EAST test of the LUE. There is no tenderness to palpation of the left coracoid process nor scalene insertions. There is tightness of the trapezius muscles noted on the left side. Neurological: She is alert and oriented to person, place, and time. She has normal sensation, normal strength and intact cranial nerves Skin: Skin is warm, dry and intact. No cyanosis. Nails show no clubbing. Bilateral good capillary refill, warm, pink. No ulcerations present. IMAGING REVIEWED: Arterial testing with TOS maneuvers 07/21/2022 report from outside institution: ASSESSMENT/PLAN: Pleasant 37 yof with LUE pain with c/f neurogenic TOS. We reassured her that in the absence of a clot as evidenced by her studies and exam, there is no indication for urgent surgical release nor threat to her arm. Recommend continued work-up with TOS focused PT, c-spine XR to assess for cervical rib. We also recommend evaluation with Dr. Jaramillo and Dr. Cortes for ultrasound of the pectoralis insertion to assess for pect minor syndrome. Alanna Caravlho PA-C Division of Vascular Diseases and Surgery Associated attestation - Jovita Osorio MD - 08/15/2022 12:19 PM EDT Please see my separate note. documented in this encounter [facility] 08-15-2022 History of Present illness Narrative I have personally examined this patient and agree with Alanna's note. Mrs. Elliott is a 37 yof referred for left TOS. She reports significant forearm and hand pain with accompanied weakness since May. No inciting event or trauma. No symptoms previously or in her youth. Denies any coolness or ulceration. Did notice bluish discoloration of the hand one day. Notes to be dropping objects frequently. There is numbness tingling which started in 4th/5th digit but this has really resolved now involving only 1-3rd digits. Pain is present all the time, even at night as she is unable to get comfortable to sleep. On exam, she has no tenderness over her scalenes or pectoralis muscles. No superficial engorgement of her veins on either side. No edema. 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 She has a slightly abnormal adsons on the left. Abnormal EAST. Of note, she was recently diagnosed with hyperaldosteronism and is undergoing further treatment. This affects her by intermittent tachycardia, hypertension and hypokalemia. I have reviewed her outside duplex which is interesting. The velocities go to zero in two positions on the left but the waveforms persist. EMG was reported as normal (negative for carpel tunnel). Differential diagnosis includes TOS, pec minor, and cervical dystonia. I explained to her that TOS is often a difficult diagnosis to come to. I think she would be best served by starting Tos PT, cervical xray, [place] duplex and [place] evaluation. I encouraged her to call sooner if things are not going well. documented in this encounter [facility] 08-15-2022 Instructions Valeria Pinon RN - 08/15/2022 9:45 AM EDT TOS Specific Physical Therapy Protocol Weeks 1-3: o Manual Rx: o STM of scar when closed o STM of anterior thorax, intercostals spaces, diaphragm o Joint mobilization ofSC & costostemaljoints o Positioning and mobility ofthe ribs o Mobilization of the thoracic and cervical spine o Usually thoracic extension and cervical flexion o Focus of OA flexion o Brachial plexus and peripheral neural mobility o teasing stretch or pain sensation - with caution to avoid exacerbating symptoms o TherexINMR: o Diaphragmatic breathing o OAflexion o Gentle scapular posterior depression exercises o Use prolonged holds >45 to retrain position and movement with gentle manual resistance o Gentle neural mobility o Posture training: o Activity restriction edu, pt self-care edu o Sleep position & x-fers o Lifting & reaching related to ADLs Weeks 4-6: (build off gains made in weeks 1-3) o Manual Rx: o STM to pectoralis and serratus anterior o STM to neck and along track of brachial plexus (neck to hand) o Gentle mobility of glenohumeral joint & AC joint separation o Focus on inferior glide of humeral head and mobility of the posterior rotator cuff o TherexINMR: o Continue with prolonged holds of OA flexion with manual and self-PRE's o Continue with prolonged holds of scapular posterior depreSSIon o Add mild resistance with TB or weights o Train scapular stability in prone on elbow position before progressing to quadruped o Supine shoulder flexion exercises with wand o Add gentle manual resistance in flexion when can perform full flexion without scapular substitution or thoracic extension. o Posture training: o Focus on sitting posture and assumption of work position while holding proper posture Weeks 7-8: o Manual Rx: o Moderate to Aggressive glenohumeral mobilizations o Continue neural mobilization until can reach full tension position without c/o pain/stretch feeling. o Address other limitations in soft tissue and joint mobility as needed o TherexlNMR: o Scapular posterior depression exercises against resistance as tolerated o Still focus on prolonged hold of postural muscles o Plank exercises maintaining scapular neutral position o Add weight shifts, walking out with a theraball and pushups from the knees o Independent maintenance of neural mobility o Progress to resisted exercises of shoulder flexion against gravity if able to perform without scapular substitution o Perform exercises until fatigue or substitution o Posture training: o Lifting crateslboxes with full squat while maintaining scapular neutral position o Mimic work-related activities documented in this encounter [facility] 03-02-2021 History of Present illness Narrative Bubble study performed x 1 at request of Janelle Tao. Patient tolerated well, IV dc'd, patient discharged home. Samara Anne RN documented in this encounter [facility] Work Phone: Evaluation + Plan note No data available for this section [facility] Evaluation + Plan note [facility] Diagnosis Left hand pain- Primary Pain in limb [facility] Diagnosis Dental infection- Primary Acute apical periodontitis of pulpal origin [facility] N[facility]* Course of treatment during hospitalization: : Left 1st rib resection. * Course of treatment during hospitalization: : Left 1st rib resection. [facility] Hospital Discharge instructions No data available for this section [facility] Discharge instructions Chest Pain/Heart Attack Information from 09/21/2022 5:20 PM: * Has Patient had Chest Pain or an MD during this Visit? : No * It is important to understand risk factors for heart disease : It is important to understand risk factors for heart disease * so you can work with your doctor to help prevent further cardiac : so you can work with your doctorto help prevent further cardiac injury. COPD Information from 09/21/2022 5:20 PM: * Does Patient have a problem/diagnosis of COPD? : No ED Discharge Education Evaluation from 09/21/2022 10:48 AM: * Educ Topic #1 : Yes Education materials given during your stay from 09/21/2022 5:20 PM: * Learning Barrier : None Patient Transfer Information from 09/21/2022 5:20 PM: * Transition Record Discussed and Provided to Patient Caregiver : Yes Physician Follow-up Plan/Appointments from 09/20/2022 8:30 PM: * Patient stated Primary Care Provider : yvon Stroke/TIA Discharge Information from 09/21/2022 5:20 PM: * Does the Patient Have a Problem/Diagnosis of Stroke this visit? : No * Stroke Risk Factor Goal : Understands Personal Risk Factors * Stroke Signs and Symptoms Goal : Understands Warning Signs and Symptoms of Stroke * Stroke Adequate Medication Management Goal : Adequate Medication Management * It is important to understand risk factors for stroke : It is important to understand risk factors for stroke * so you can work with your doctor to help prevent another stroke. : so you can work with your doctorto help prevent another stroke. * High Blood Pressure Txt : High Blood Pressure: This is the single most important risk factor for stroke * Smoking Txt : Smoking doubles your risk of stroke. * You can find a program to help you quit by calling: : You can find a program to help you quit by calling: * Diabetes Txt : Diabetes increases your risk of stroke. * Atrial Fib Txt : Atrial Fibrillation (AF) is an irregular heartbeat that changes how your heart works. * Carotid Txt : Carotid or other artery disease * Cholesterol Txt : High Cholesterol * Warning Signs of Stroke Txt : What to look for: Warning Signs and Symptoms of a Stroke. 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 ACP-Advance Directive ACP-Power of Manager Balance Latest Code Status on File Code Status Date Activated Date Inactivated Comments Full Code-Unverified 05/27/2014 4:34 PM 05/27/2014 10:51 PM Summary Purpose Family History No Family History Records FoundNo Family History Records FoundNo Family History Records FoundNo Family History Records FoundNo Family History Records FoundNo Family History Records Found No data available for this section No Family History Records Found Reason for Referral Specialty Diagnoses / Procedures Referred By Andrea esqueda Referred To Contact Lab Diagnoses 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 Sendout: Hypokalemia and Related Disorders [place] [address] Referral ID Status Reason Start Date Expiration Date V isits Requested Visits Authorized [id number] Open Specialty Services Required 07/19/2022 07/19/2023 1 1 Specialty Diagnoses / Procedures Referred By Andrea esqueda Referred To Contact Diagnoses Left hand pain Jovita Osorio MD [address] [address] Referral ID Status Reason Start Date Expiration Date V isits Requested Visits Authorized [id number] New Request 08/15/2022 09/09/2023 1 1 Specialty Diagnoses / Procedures Referred By Andrea esqueda Referred To Contact Physical Therapy Diagnoses Left hand pain Jovita Osorio MD [address] [address] Referral ID Status Reason Start Date Expiration Date V isits Requested Visits Authorized [id number] New Request 08/15/2022 09/09/2023 1 1 Scheduling Instructions [facility] [address] [facility] 2nd Floor [place] [address] Fax [facility] (Neck and Back Therapy) [address] [place], [place] [address] ) [phone] FAX [facility] [address] [place] [address] [phone] FAX [facility] [place] [address] [facility] [address] [place] [address] [phone] FAX [facility] [address] [place] [address] FAX Physical Therapy at [facility] [address] [place], [place] [address] FAX [facility] [address] [place], [place] [address] [phone] FAX Continued on next page [facility] [address] [place] [address] FAX [facility] [address] [facility] [place] [address] FAX Additional Source Comments INFORMATION SOURCE (unrecogn ized section and content) DATE CREATED AUTHOR AUTHOR'S ORGANIZ ATION 08/01/2022 [facility] DATE CREATED AUTHOR AUTHOR'S ORGANIZ ATION 08/16/2022 [facility] DATE CREATED AUTHOR AUTHOR'S ORGANIZ ATION 09/28/2022 [facility] DATE CREATED AUTHOR AUTHOR'S ORGANIZ ATION 12/31/2022 [facility] [place] [facility] DATE CREATED AUTHOR AUTHOR'S ORGANIZ ATION 07/07/2023 [facility] DATE CREATED AUTHOR AUTHOR'S ORGANIZ ATION 10/09/2023 [facility] ([place]) Reason for Visit (unrecogniz ed section and content) Referral ID Status Reason Start Date Expiration Date V isits Requested Visits Authorized [id number] Open Specialty Services Required 07/19/2022 07/19/2023 1 1 Reason Comments New Patient Consult apt for thor acic outlet syndrome. Specialty Diagnoses / Procedures Referred By Andrea t Referred To Contact General Surgery Diagnoses TOS (thoracic outlet syndrome) Maico Chun MD [address] [address] [facility] [address] [place] [address] Referral ID Status Reason Start Date Expiration Date V isits Requested Visits Authorized [id number] New Request 08/06/2022 08/31/2023 1 1 Reason Comments Pain Pt reported (RT) fac ial /gum swelling x2 days. Care Teams (unrecognized sec tion and content) Php Wordpress Developer Relationship Specialty Start Date End Date Zhao Resendez DO PCP - General Family Medicine 04/03/14 Care Team (unrecognized sect ion and content) Care Team Personnel Name: PHYSICIAN, NONE Position: Physician Member Role: Primary Care Physician Care Team Related Persons Name: CINDY ELLIOTT Name: ROSANNE ELLIOTT Darryl [facility] Address: Home [address] [place] [address] [place] Goals (unrecognized section and content) Goals from 09/21/2022 5:21 PM:Goal for Mobility : Medicate as prescribed to maintain comfort level,Position body/joint as needed to relieve pain/stress,Decrease/Manage Pain Patient Stated Goals from 09/21/2022 5:20 PM:Patient's Personal Life Style and Recovery Goal : I'm ready to go home Patient's Personal Life Style and Recovery Plan : return home Goals from 09/21/2022 5:20 PM:Goal for Mobility : Decrease/Manage Pain,Maintain active lifestyle as tolerated Patient Stated Goals from 09/21/2022 5:20 PM:Patient's Personal Life Style and Recovery Goal : I'm ready to go home Patient's Personal Life Style and Recovery Plan : return home Source Comments (unrecognize d section and content) In the event this informatio n is protected by the Federal Confidentiality of Alcohol and Drug Abuse Patient Records regulations: The Federal rules restrict any use of the information to criminally investigate or prosecute any alcohol or drug abuse patient.[facility] FOR RECORDS PERTAINING TO PATIENTS WHO ARE OR HAVE BEEN ENROLLED IN A CHEMICAL DEPENDENCY/SUBSTANCEABUSE PROGRAM, SOME INFORMATION MAY BE OMITTED. This clinical summary was aggregated from multiple sources. Caution should be exercised in using it in the provision of clinical care. This summary normalizes information from multiple sources, and as a consequence, information in this document may materially change the coding, format and clinical context of patient data. In addition, data may be omitted in some cases. CLINICAL DECISIONS SHOULD BE BASED ON THE PRIMARY CLINICAL RECORDS. [employer] provides no warranty or guarantee of the accuracy or completeness of information in this document.
[2023-12-25 12:40] LABS: Anion Gap 8 (5-15); BUN 11 mg/dL (7-18); BUN/Creat Ratio 14.6 RATIO (10-20); Calcium,Total 8.8 mg/dL (8.5-10.1); Chloride 108 mmol/L (98-107); Creatinine, Serum 0.75 mg/dL (0.55-1.02); EST Glomerular Filtration Rate 91 mL/min (>60); Est Glom Filt Rate - Afr Amer 110 mL/min (>60); Glucose 82 mg/dL (74-106); Potassium 3.8 mmol/L (3.5-5.1); Sodium Level 138 mmol/L (136-145)
== END | disposition home or self-care (01) ==
LOC: POLAB3 10:03
PROVIDERS: PCP Family Medicine; Visit Provider Internal Medicine Nephrology
DX: E87.6 Hypokalemia (principal)
CPT/HCPCS: 36415; 80048

== ENCOUNTER → 2024-02-12 | Outpatient (CLI) | payer BC, SELFPAY ==
--- NOTE | 2024-02-12 16:49 | RAD_ITS ---
EXAM: XR LEFT FOOT COMPLETE, 3 OR MORE VIEWS CLINICAL INDICATION: pain in heel TECHNIQUE: Frontal, lateral and oblique views of the left foot. COMPARISON: No relevant prior studies available. FINDINGS: BONES/JOINTS: Unremarkable. No acute fracture. No subluxation. Normal alignment. Preservation of the joint space. No sclerotic or destructive changes observed. SOFT TISSUES: Unremarkable. No soft tissue swelling or gas. No radiopaque foreign body. RAD/Foot min 3 Views IMPRESSION: Negative left foot x-rays. Electronically Signed: German Kern MD at 17:31 EDT ,
== END | disposition home or self-care (01) ==
LOC: MTRAD 16:49
PROVIDERS: PCP Family Medicine; Referring Provider Family Medicine; Visit Provider Family Medicine
DX: M79.673 Pain in unspecified foot (principal)
CPT/HCPCS: 73630

== ENCOUNTER → 2024-03-11 | Outpatient (CLI) | payer BC, SELFPAY ==
[2024-03-11 17:33] LABS: Hematocrit 41.5 % (37-47); Hemoglobin 13.5 g/dL (12.0-15.0); Mean Corp Hgb Conc 32.5 g/dL (32-36); Mean Corpuscular Hgb 29.2 pg (27.0-32.0); Mean Corpuscular Volume 89.8 fL (81-99); Mean Platelet Vol. 11.1 fl (6.2-12.0); Platelet Count 334 K/mm3 (150-450); RBC Distribution Width CV 13.8 % (11.6-14.6); RBC Distribution Width SD 44.9 fl (35.1-43.9); Red Blood Count 4.62 M/mm3 (4.2-5.4); White Blood Count 7.4 K/mm3 (4.4-11.0)
[2024-03-11 17:35] LABS: International Normalized Ratio 0.9; Prothrombin Time (Protime)PT. 12.2 SECONDS (11.7-14.9)
[2024-03-11 17:36] LABS: Partial Thromboplast Time 26.5 Seconds (24.1-36.2)
[2024-03-11 18:15] LABS: ALB/GLOB Ratio 1.2 RATIO (0.9-2.4); AST(SGOT) 11 U/L (15-37); Alanine Aminotransfer ALT/SGPT 12 U/L (13-56); Alkaline Phosphatase 59 U/L (45-117); Anion Gap 5 (5-15); BUN 9 mg/dL (7-18); Calcium,Total 8.8 mg/dL (8.5-10.1); Chloride 110 mmol/L (98-107); Creatinine, Serum 0.82 mg/dL (0.55-1.02); EST Glomerular Filtration Rate 82 mL/min (>60); Est Glom Filt Rate - Afr Amer 100 mL/min (>60); Globulin 3.4 g/dL (2.2-4.2); Glucose 69 mg/dL (74-106); Potassium 3.8 mmol/L (3.5-5.1); Protein, Total 7.4 g/dL (6.4-8.2); Sodium Level 138 mmol/L (136-145)
== END | disposition home or self-care (01) ==
LOC: MFPLAB 16:30
PROVIDERS: PCP Family Medicine; Visit Provider Family Medicine
DX: R23.3 Spontaneous ecchymoses (principal)
CPT/HCPCS: 36415; 80053; 85027; 85610; 85730

== ENCOUNTER → 2024-06-06 | Outpatient (CLI) | payer BC, SELFPAY ==
[2024-06-06 17:50] LABS: Absolute Lymphocyte Count 2.58 X10^3/uL (0.83-4.51); Absolute Neutrophil Count 4.7 X10^3/uL (2.0-7.7); Basophil# 0.06 X10^3/uL; Basophil% 0.7 % (0-1); Eosinophil# 0.08 X10^3/uL; Hematocrit 43.5 % (37-47); Hemoglobin 14.1 g/dL (12.0-15.0); Lymphocyte # 2.58 X10^3/ul (0.83-4.51); Lymphocyte % 32.1 % (19-41); Mean Corp Hgb Conc 32.4 g/dL (32-36); Mean Corpuscular Hgb 29.9 pg (27.0-32.0); Mean Corpuscular Volume 92.2 fL (81-99); Mean Platelet Vol. 10.7 fl (6.2-12.0); Monocyte# 0.57 X10^3/uL; Monocyte% 7.1 % (0-10); NRBC Flagged by Analyzer 0 % (0-5); Neutrophil # 4.73 X10^3/uL (2.7-7.7); Neutrophil % 58.9 % (47-70); Platelet Count 344 K/mm3 (150-450); RBC Distribution Width CV 13.9 % (11.6-14.6); RBC Distribution Width SD 47.8 fl (35.1-43.9); Red Blood Count 4.72 M/mm3 (4.2-5.4)
[2024-06-06 18:27] LABS: AST(SGOT) 12 U/L (15-37); Alanine Aminotransfer ALT/SGPT 14 U/L (13-56); Albumin, Serum 3.8 g/dL (3.2-5.0); Alkaline Phosphatase 75 U/L (45-117); Anion Gap 9 (5-15); BUN 15 mg/dL (7-18); BUN/Creat Ratio 18.8 RATIO (10-20); Calcium,Total 9.2 mg/dL (8.5-10.1); Chloride 106 mmol/L (98-107); Cholesterol 201 mg/dL (200); EST Glomerular Filtration Rate 85 mL/min (>60); Est Glom Filt Rate - Afr Amer 103 mL/min (>60); Globulin 3.8 g/dL (2.2-4.2); Glucose 121 mg/dL (74-106); High Density Lipoprotein 80 mg/dL; Magnesium 2.1 mg/dL (1.6-2.6); Potassium 3.5 mmol/L (3.5-5.1); Protein, Total 7.6 g/dL (6.4-8.2); Sodium Level 138 mmol/L (136-145); Thyroid Stim Hormone (TSH) 2.54 uIU/mL (0.358-3.74); Triglycerides 99 mg/dL; Very Low Density Lipoprotein 20 mg/dL (5-40)
[2024-06-10 18:08] LABS: Anti-Thyroglobulin AB < 1.0 IU/mL (0.0-0.9); Thyroglobulin, Serum Qt. 7.2 ng/mL (1.5-38.5); Thyroid Peroxidase AB 22 IU/mL (0-34); Thyroid Stim Immunoglob <0.10 IU/L (0.00-0.55)
== END | disposition home or self-care (01) ==
LOC: MFPLAB 16:06
PROVIDERS: PCP Family Medicine; Visit Provider Family Medicine
DX: R73.09 Other abnormal glucose (principal); I47.10 Supraventricular tachycardia, unspecified; E01.0 Iodine-deficiency related diffuse (endemic) goiter; I10 Essential (primary) hypertension
CPT/HCPCS: 80053; 80061; 83036; 83735; 84432; 84439; 84443; 84445; 85025; 86376; 86800

== ENCOUNTER → 2024-07-18 | Outpatient (CLI) | payer BC, SELFPAY ==
--- NOTE | 2024-07-18 17:38 | US_ITS ---
INDICATION: CT Pelvic Cyst EXAMINATION: Ultrasound US Pelvis Non OB Complete With Transvaginal Imaging TECHNIQUE: Transabdominal and transvaginal pelvic ultrasound was performed. Grayscale, spectral waveform, and color flow Doppler evaluation of the adnexa. COMPARISON: FINDINGS: UTERUS: Status post hysterectomy. RIGHT OVARY: Status post right oophorectomy. LEFT OVARY: 2.9 x 1.6 x 1.9 cm. There is a left adnexal hyperechoic 2.9 x 2.6 x 3.4 cm lesion. There are adjacent cystic changes measuring 4.3 x 2.4 x 2.4 cm and 2.2 x 1.7 x 1.5 cm. There is normal arterial inflow and venous outflow present in the left ovary. FREE FLUID: Mild. US/Pelvic w/ Transvaginal IMPRESSION: Hyperechoic and cystic structures are noted within the left adnexa. Mild pelvic fluid. Correlate with CT or MRI if needed. Electronically Signed: Isael King DO at 20:41 EDT Reading Location ID and State: [facility] / [place] Tel [phone], Service support ,
== END | disposition home or self-care (01) ==
PROVIDERS: PCP Family Medicine; Referring Provider Family Medicine; Visit Provider Family Medicine
DX: D36.9 Benign neoplasm, unspecified site (principal)
CPT/HCPCS: 76830; 76856

== ENCOUNTER → 2024-08-04 | Outpatient (CLI) | payer BC, SELFPAY ==
[2024-08-04 11:43] LABS: Estradiol 46.9 pg/mL; Follicle Stimulating Hormone 11.5 mIU/mL
[2024-08-05 04:08] LABS: Cancer Antigen 125 17.4 U/mL (0.0-38.1); Carcinoembryonic Antigen 1.8 ng/mL (0.0-4.7)
== END | disposition home or self-care (01) ==
LOC: LAB 10:14
PROVIDERS: PCP Family Medicine; Referring Provider Nurse Practitioner Women's Health; Visit Provider Nurse Practitioner Women's Health
DX: N83.202 Unspecified ovarian cyst, left side (principal); R23.2 Flushing
CPT/HCPCS: 36415; 82378; 82670; 83001; 86304

== ENCOUNTER → 2024-08-18 | Outpatient (CLI) | payer BC, SELFPAY ==
--- NOTE | 2024-08-18 14:21 | US_ITS ---
EXAM: US PELVIS TRANSABDOMINAL LIMITED AND TRANSVAGINAL CLINICAL INDICATION: left ovarian cyst TECHNIQUE: Transabdominal (limited) and transvaginal pelvic ultrasound was performed with grayscale and color Doppler imaging. Transvaginal imaging was used for better evaluation of the endometrium and adnexa. COMPARISON: 07/18/2024. FINDINGS: UTERUS/CERVIX: Uterus is surgically absent. RIGHT OVARY: Right ovary is surgically absent. LEFT OVARY: Left ovary measures 3.9 x 3.7 x 3 cm. Arterial and venous flow are documented. Multiple simple ovarian cysts, the largest measuring 4.3 x 2.4 x 2.5 cm. No significant change compared to the prior study. Blood flow is present in the left ovary. FREE FLUID: None. BLADDER: Unremarkable as visualized. Wall is normal thickness for degree of distention. US/Pelvic w/ Transvaginal IMPRESSION: Left ovarian cysts without significant change. Consider additional sonographic follow-up in 8-12 weeks. Electronically Signed: Abimbola Gonzalez MD at 18:17 EDT Reading Location ID and State: [id number] / Tel , Service support ,
--- NOTE | 2024-08-18 14:22 | BI_ITS ---
MAMMOGRAPHY - BILATERAL SCREENING 3-D TOMOSYNTHESIS REASON FOR EXAM: Female, 39 years old. screen PERTINENT HISTORY: No significant family history. TECHNIQUE: 2-D mammograms and 3-D Tomosynthesis of the breast (s) were performed. CAD was performed. COMPARISON: None. FINDINGS: The breast composition is composed of scattered fibroglandular density. Scattered benign calcifications are seen. No dense spiculated masses or suspicious microcalcifications are identified. No architectural distortion is identified. There is no skin thickening or retraction. There has been no significant change since the prior study. BI/SCRN MAMM (CAD)W/LITA BILAT IMPRESSION: No mammographic signs of malignancy. Routine yearly mammograms recommended. ASSESSMENT CATEGORY: BIRADS Category 1: Negative. A letter regarding these results will be sent to the patient by the facility within 30 days. FOLLOW UP RECOMMENDATION: Yearly follow up mammogram recommended. (A) Approximately 10% of breast cancers are not detected by mammography. A normal mammogram should not delay biopsy of a clinically suspicious abnormality. Electronically Signed: Alberto Moses MD at 8:40 EDT ,
== END | disposition home or self-care (01) ==
LOC: US 14:19
PROVIDERS: PCP Family Medicine; Referring Provider Nurse Practitioner Women's Health; Visit Provider Nurse Practitioner Women's Health
DX: Z12.31 Encounter for screening mammogram for malignant neoplasm of breast (principal); N83.202 Unspecified ovarian cyst, left side
CPT/HCPCS: 76830; 76856; 77063; 77067

== ENCOUNTER → 2024-09-17 | Outpatient (CLI) | payer BC, SELFPAY ==
[2024-09-17 18:10] LABS: International Normalized Ratio 0.9; Prothrombin Time (Protime)PT. 12.1 SECONDS (11.7-14.9)
[2024-09-17 18:11] LABS: Partial Thromboplast Time 25.8 Seconds (24.1-36.2)
[2024-09-17 18:18] LABS: Hemoglobin 14.3 g/dL (12.0-15.0); Mean Corp Hgb Conc 32.5 g/dL (32-36); Mean Corpuscular Hgb 29.5 pg (27.0-32.0); Mean Corpuscular Volume 90.7 fL (81-99); Mean Platelet Vol. 10.9 fl (6.2-12.0); Platelet Count 349 K/mm3 (150-450); RBC Distribution Width CV 13.6 % (11.6-14.6); RBC Distribution Width SD 45.7 fl (35.1-43.9); Red Blood Count 4.85 M/mm3 (4.2-5.4); White Blood Count 6.7 K/mm3 (4.4-11.0)
[2024-09-17 18:48] LABS: AST(SGOT) 7 U/L (15-37); Alanine Aminotransfer ALT/SGPT 16 U/L (13-56); Alkaline Phosphatase 58 U/L (45-117); Anion Gap 6 (5-15); BUN 8 mg/dL (7-18); BUN/Creat Ratio 9.8 RATIO (10-20); Calcium,Total 8.8 mg/dL (8.5-10.1); Chloride 108 mmol/L (98-107); Creatinine, Serum 0.82 mg/dL (0.55-1.02); EST Glomerular Filtration Rate 83 mL/min (>60); Est Glom Filt Rate - Afr Amer 100 mL/min (>60); Globulin 3.5 g/dL (2.2-4.2); Glucose 88 mg/dL (74-106); Potassium 3.7 mmol/L (3.5-5.1); Protein, Total 7.5 g/dL (6.4-8.2); Sodium Level 136 mmol/L (136-145)
[2024-09-17 19:24] LABS: T4 Free Direct 1.01 ng/dL (0.76-1.46)
[2024-09-23 10:09] LABS: Anti-Thyroglobulin AB < 1.0 IU/mL (0.0-0.9); Thyroglobulin, Serum Qt. 6.4 ng/mL (1.5-38.5); Thyroid Stim Immunoglob <0.10 IU/L (0.00-0.55)
== END | disposition home or self-care (01) ==
LOC: MFPLAB 15:50
PROVIDERS: Anesthesiology; Obstetrics & Gynecology; PCP Family Medicine; Referring Provider Family Medicine; Visit Provider Family Medicine
DX: Z01.818 Encounter for other preprocedural examination (principal); E01.0 Iodine-deficiency related diffuse (endemic) goiter; R73.09 Other abnormal glucose
CPT/HCPCS: 36415; 80048; 80076; 83036; 84432; 84439; 84443; 84445; 85027; 85610; 85730; 86376; 86800; 86850; 86900; 86901

== ENCOUNTER 2024-09-23 13:11 | Day surgery (SDC) | payer BC, SELFPAY ==
--- NOTE | 2024-09-22 07:25 | EKG12_ITS ---
Test Reason : PREOP Blood Pressure : */* mmHG Vent. Rate : 71 BPM Atrial Rate : 71 BPM P-R Int : 122 ms QRS Dur : 72 ms QT Int : 430 ms P-R-T Axes : 78 26 42 degrees QTcB Int : 467 ms Sinus rhythm with Fusion complexes Otherwise normal ECG Confirmed by CLAUDE CONNOLLY, HELEN ([id number]), news video editor MERY MOYA ([id number]) on 09/22/2024 9:59:39 AM Referred By: Samara Canas Confirmed By: HELEN ARCE MD
[2024-09-23] VITALS (7 sets, daily range): BP systolic 131–144; BP diastolic 68–95; PULSE 74–115; RESP 16–20; TEMP 36.6–36.7; O2SAT 97–98; BMI 27.6
--- NOTE | 2024-09-23 | FLU_PTH ---
PATIENT: ELOISE ELLIOTT LOC: [facility] [place][id number] AGE/SX: 39/F ROOM: RE09/23/[address]: Dr. Samara Canas MD : 1985 BED: DIS: 09/23/2024 SPEC #: [id number] RECD: 09/23/24 17:02 STATUS: CADEN VALLEPravin #: [id number] ORI: 09/23/24 00:[address]: Samara Canas DEPT: CYTOLOGY RECD BY: Shayla Barth ENTERED: 09/24/24 09:13 SP TYPE: Fluid OTHR DR: Dr. Mick Marie MD Tissues: Ovary, NOS Procedures: Special Stain Group II Surgery Specimen Level IV Cytospin Fluid HEADER OPERATION: Laparoscopic, ovarian cystectomy PRE-OP DIAGNOSIS: Right ovarian cyst fluid TISSUE SUBMITTED: Right ovary cyst fluid for cytology DIAGNOSIS CYTOLOGY Right ovarian cyst fluid for cytology (cytospin and cellblock): Paucicellular specimen, negative for malignant cells. See comment. FRANC 09/25/2024 COMMENT Please also make reference to additional specimen [id number]. Clinical correlation and appropriate follow up are necessary. CYTOLOGY STUDY Slides are reviewed. CYTOLOGY GROSS Received is 7 ml of red-milky fluid labeled with the patient's name and and designated per the requisition as Right ovary cyst fluid. Submitted for cytology preparation including cell block. Mr 09/24/2024 TC:5 CPT: 61511,43176
--- NOTE | 2024-09-23 12:26 | HP.PCM_ITS ---
History and Physical [facility] [address], [address] [place] [address] OFFICE VISIT Date of Service: 09/10/24 MR#: [id number] Acct: [id number] Name: ELOISE ELLIOTT Rep #: [id number] : 1985 Provider: Dr. Samara Canas MD Age/Sex: 39/F [place] [facility] [place]: Signed Intake Vital Signs 08/04/2409:49 09/10/2414:04 09/10/2414:10 Height 5 ft 7 in 5 ft 7 in Weight: 185 lb BMI 29.0 BP 149/98 H 137/97 H Intake Visit Reasons: surgical consult per Surveillance Sensor Operator Required: No Is patient in pain?: Yes (lower left pelvic pain) Feel stressed/tense/nervous/anxious/difficulty sleeping: not at all Allergies adhesive tape Allergy (Mild, Verified 09/10/24 14:06) RashIodinated Contrast Media Allergy (Unknown, Verified 09/10/24 14:06) Itching Medications ?Medication ?Instructions ?Recorded ?Confirmed ?Type amiloride 5 mg tablet 20 mg PO DAILY 02/16/22 09/10/24 History hydralazine 25 mg tablet 25 mg PO TID 02/16/22 09/10/24 History verapamil 180 mg 24 hr 180 mg PO DAILY #60 caps 04/10/22 09/10/24 Rx capsule,extended release clonidine HCl 0.1 mg tablet 0.1 mg PO BID hypertensive 05/22/22 09/10/24 History emergency escitalopram oxalate 10 mg tablet 10 mg PO QDAY 08/04/24 09/10/24 History (Lexapro) Is last menstrual period known: No Post menopausal: No Patient : No : No PFSH Medical History (Updated 09/11/24 @ 08:[address] 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 Patient has had an ovarian cyst that has been present now for over a month. Patient has had chronic left hip pain for a year and has been increasing and has been worked up for musculoskeletal origin and workup has been negative. She has tried interventions and nothing has resolved it. She also has deep dyspareunia. Upon pelvic ultrasound she has a cystic ovarian lesion that has doubled in size in the last month. History 3 Elective abortions Hx Para 3 Spontaneous abortions Hx # Term Pregnancies Ectopic pregnancies Hx # Pregnancies Multiple births # of living children 3 ROS Const Constitutional: Denies fatigue, fever(s), headache(s), increased appetite, poor appetite, weight gain or weight loss Cardio Card: Denies chest pain Resp Resp: Denies cough or dyspnea GI GI: Reports as per HPI; Denies constipation, nausea or vomiting : Reports as per HPI, vaginal discharge, vaginal dryness, vaginal odor and vaginal pruritus; Denies difficulty voiding, dysuria, urinary frequency, urinary incontinence, urinary hesitancy or urinary urgency Skin Skin/Breast: Denies change in hair, breast mass, breast pain or breast skin changes Exam Const General: cooperative, healthy appearing, comfortable, no acute distress and well developed Nutritional Appearance: average body habitus Orientation: alert HENMT Head: normal to inspection and normocephalic Neck Neck: normal visual inspection and trachea midline Thyroid: thyroid normal Resp Effort & Inspection: normal respiratory effort GI Inspection: normal to inspection and non-distended Palpation: soft and no hepatosplenomegaly General: bladder normal to palpation External Female Exam: normal external appearance and normal appearance of the urethra Urethra: normal appearance of the urethra, normal palpation and no discharge Speculum Exam - Vagina: normal appearance of the vagina and normal vaginal discharge Bimanual Exam- Vagina & Uterus: bladder normal to palpation Other: cystic ovarian mass palpated at cuff of vagina, tender on exam and fluctuant Skin General: no rashes or lesions noted Coding Level of Care Code Off vis,est,level 4 Diagnoses Dyspareunia Chronic pelvic pain in female R10.2; G89.29 Left ovarian cyst N83.202 Hot flashes R23.2 Assessment and Plan Assessment and Plan (1) Dyspareunia: Status: Acute (2) Chronic pelvic pain in female: Status: Chronic (3) Left ovarian cyst: Status: Acute Comment: increasing in size, pcos in appearance additional labs ordered; CA 125, CEA:nl (4) Hot flashes: Status: Acute Comment: FSH, estradiol Plan Extensive counseling provided including the risks of oophorectomy and early menopause and the patient may not be a candidate for hormonal therapy. Patient states that she wants to proceed with surgical therapy versus other options due to persistent pain both in her hip pelvis and her dyspareunia. She is also concerned that the cyst is increasing in size. I offered both expectant manag ement everything and ultrasound and immediate surgical management. I discussed the risk of possible bladder injury or needing to open due to the location of the ovary and the fixed nature of the ovary on palpation. After discussing the patient's diagnosis and treatment plan options, patient wishes to proceed with surgical management. I have discussed with the patient the risks, benefits, and alternatives of the procedure which include but are not limited to risks of anesthesia, bleeding, infection, possible damage to bowel, bladder, or surrounding vasculature which could lead to additional surgery to evaluate any complications. Patient agrees to procedure and wishes to proceed. ACOG/uptodate references given for additional information regarding procedure. UPDATE- I have seen the patient and performed any clinically relevant updates to the history and physical exam. Samara Canas MD
[2024-09-23 13:40] LABS: Internal QC Validated? YES +Cl - CLEAR BKGD; Pregnancy, Urine Negative Negative
[2024-09-23] MEDS: Lactated Ringers 1,000 ML 15 ML IV (13:49)
--- NOTE | 2024-09-23 14:38 | PCM.PRE.AN2 ---
ASA Classification* ASA Classification ASA Classification: 3 Assessment & Plan Anesthesia* Anesthesia Assessment Anesthesia Assessment: Discussed sedation and/or anesthesia options, risks, benefits, and alternatives with patient/parents/legal guardian/POA. Questions invited. The patient/parents/legal guardian/POA seems to understand and agrees to proceed with anesthesia plan. Reviewed the physical assessment, medical history, allergy history and patient home medications list prior to surgery/procedure/anesthetic and documented any changes. Performed airway and anesthesia risk assessments. Anesthesia Type Anesthesia Type: General History Source History Obtained from:: Patient and Chart Anesthesia Focused Assessment* Temperature: 97.9 F Pulse Rate: 74 Blood Pressure: 139/95 Respiratory Rate: 16 Pulse Ox: 98 Oxygen Delivery Method: Room Air Airway Assessment Mouth opens: >3 cm Mallampati Score: III Teeth Condition: Caps/Crowns (Patient has a crown right upper molar. Also a right upper implant. Both tight) Neck Range of motion (ROM): Full ROM Pertinent Findings EKG Pertinent Findings:: September 22, 2024. Sinus rhythm with fusion complexes Focused Labs Anesthesia Preop lab: CBC WBC 6.7 K/mm3 (4.4-11.0) 09/17/24 15:52 RBC 4.85 M/mm3 (4.2-5.4) 09/17/24 15:52 Hgb 14.3 g/dL (12.0-15.0) 09/17/24 15:52 Hct 44.0 % (37-47) 09/17/24 15:52 Plt Count 349 K/mm3 (150-450) 09/17/24 15:52 CHEMISTRY Potassium 3.7 mmol/L (3.5-5.1) 09/17/24 15:52 Sodium 136 mmol/L (136-145) 09/17/24 15:52 Magnesium 2.1 mg/dL (1.6-2.6) 06/06/24 16:06 Phosphorus 2.8 mg/dL (2.5-4.9) 09/05/23 13:39 BUN 8 mg/dL (7-18) 09/17/24 15:52 Creatinine 0.82 mg/dL (0.55-1.02) 09/17/24 15:52 Glucose 88 mg/dL (74-106) 09/17/24 15:52 POC Glucose 104 mg/dL (70-110) 05/30/21 07:54 TSH 2.280 uIU/mL (0.358-3.740) 09/17/24 16:24 COAG PT 12.1 SECONDS (11.7-14.9) 09/17/24 15:52 Urine Test Negative Negative 09/23/24 13:20 Pre-Assessment Diagnosis/Proposed Procedure Planned Operative Procedure(s): LAP LEFT OVARIAN CYSTECTOMY POSS OOPHERECTOMY Anesthesia History Anesthesia History - clinical engineering manager: Anesthesia History - clinical engineering manager Hx Hospitalization No 09/17/24 15:21 Any Problems With Anesthesia No 09/17/24 15:21 Cholinesterase deficiency No 09/17/24 15:21 You/Your Family Experience No 09/17/24 15:21 fever (hyperthermia) with Relationship Recent Exposure to Contagious No 09/23/24 13:42 Disease Does patient have nerve No 09/17/24 15:21 stimulator Patient instructed to have device shut off --Does patient have Pacemaker No 09/23/24 13:42 or ICD? When Was Last Pacemaker Check QUESTION #4 FULL TEXT: You/Your Family Experience fever (hyperthermia) with Anesthesia Last Oral Intake Last Oral intake: Last Oral Intake NPO since 00:00 09/23/24 13:42 Meds taken in AM with sips of No 09/23/24 13:42 water? Meds patient instructed to take am of surgery PONV PONV - clinical engineering manager: PONV - clinical engineering manager Female Yes 09/17/24 15:21 HX of Motion Sickness No 09/17/24 15:21 HX of N/V After Surgery No 09/17/24 15:21 Non-Smoker Yes 09/17/24 15:21 Duration of Surgery greater Yes 09/17/24 15:21 than 60 minutes Number of Risk Factors 3 09/17/24 15:21 PONV Score Moderate Risk 09/17/24 15:21 Height & Weight Height & Weight: Anesthesia: Height & Weight Height 5 ft 7 in 09/23/24 13:42 Weight: 80 kg 09/23/24 13:42 Body Mass Index (BMI) 27.6 09/23/24 13:42 Respiratory Assessment Respiratory Assessment - clinical engineering manager: Respiratory Tract Infection Hx - clinical engineering manager Hx Respiratory Tract Infection No 09/17/24 15:21 STOP Sleep Apnea STOP Sleep Apnea - clinical engineering manager: STOP Sleep Apnea - clinical engineering manager Hx Hypertension Yes: CONTROLLED WITH MED/ 09/17/24 15:21 RUNS HIGH Hx Sleep Apnea No 09/17/24 15:21 CPAP BIPAP Do you snore loudly (louder No 09/17/24 15:21 than talking or can be heard Do you often feel tired/ No 09/17/24 15:21 fatigued/ sleepy during daytime? Has anyone observed you stop No 09/17/24 15:21 breathing during sleep? STOP Results Negative 09/17/24 15:21 QUESTION #5 FULL TEXT : Do you snore loudly (louder than talking or can be heard through closed doors)? Tobacco Use History Tobacco Use History - clinical engineering manager: Tobacco Use History - clinical engineering manager Tobacco Use Smoking Status Former smoker 09/17/24 15:21 Hx Tobacco Use No 09/17/24 15:21 Years Smoking Packs Smoked per Day Smoking Cessation Date was Yes - quit smoking within 15 09/17/24 15:21 within the last 15 years years Hx Smoking Cessation Date 05/05/22 09/17/24 15:21 Hx Smoking Cessation Counseling Hematologic Medial History Hematologic Hx - clinical engineering manager: Hematologic Medical Hx - rack puller Hx of Blood Transfusion No 09/17/24 15:21 Hx of Transfusion in last 3 No 09/17/24 15:21 Months Date of Last Transfusion (if within last 3 months) Ever experience any problems No 09/17/24 15:21 with transfusion(s)? Specify any problems Hx of Preganancy in last 3 No 09/17/24 15:21 Months Nurse Filling Out Transfusion DSCHRIBER 09/17/24 15:21 & Questions: Date: 09/17/24 09/17/24 15:21 Time: 15:23 09/17/24 15:21 Patient unable to answer at this time (ie. confused, unrespo /Reproduction History /Reproductive History - clinical engineering manager: /Reproductive Hx- clinical engineering manager Hx Now No 09/17/24 15:21 Gestational Age (in weeks): EDC: Hx Hx Para Hx Section SAB No 09/17/24 15:21 Active Medications Active Medications: Current Medications Generic Name Dose Route Start Last Admin Trade Name Freq PRN Reason Stop Dose Admin Lactated Ringer's 1,000 mls @ 15 mls/hr 09/23/24 13:45 09/23/24 13:49 IV 09/29/24 03:04 15 mls/hr .Q48H BALDOMERO Administration Protocol [facility] Medical History Wears contact lenses Depression Anxiety Easy bruising Back pain Injury of head and neck Former smoker History of echocardiogram Cardiology follow-up encounter Juan J's syndrome PSVT (paroxysmal supraventricular tachycardia) Hypertensive heart disease without HF (heart failure) Mixed hyperlipidemia Essential hypertension TIA (transient ischemic attack) Tachycardia Home Medications ?Medication ?Instructions ?Recorded ?Last Taken ?Type amiloride 5 mg tablet 10 mg PO BID 02/16/22 09/22/24 History hydralazine 25 mg tablet 25 mg PO TID 02/16/22 09/22/24 History verapamil 180 mg 24 hr 180 mg PO DAILY #60 caps 04/10/22 09/22/24 Rx capsule,extended release clonidine HCl 0.1 mg tablet 0.1 mg PO BID hypertensive 05/22/22 09/22/24 History emergency escitalopram oxalate 10 mg tablet 10 mg PO QDAY 08/04/24 09/22/24 History (Lexapro) Allergy/AdvReac Type Severity Reaction Status Date / Time adhesive tape Allergy Mild Rash Verified 09/23/24 13:40 Iodinated Contrast Media Allergy Unknown Itching Verified 09/23/24 13:40 Family History Other Cancer Diabetes Heart disease Hypertension Surgical History History of resection of rib S/P tubal ligation History of hysterectomy Social History household members: spouse 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
--- NOTE | 2024-09-23 14:45 | OV_PTH ---
PATIENT: ELOISE ELLIOTT LOC: [facility] – [place] U#:[id number] AGE/SX: 39/F ROOM: RE09/23/[address]: Dr. Samara Canas MD : 1985 BED: DIS: 09/23/2024 SPEC #: [id number] RECD: 09/24/24 10:23 STATUS: CADEN REPravin #: [id number] ORI: 09/23/24 14:[address]: Samara Canas DEPT: SURGICAL PATHOLOGY RECD BY: Mohit Hassan ENTERED: 09/24/24 10:24 SP TYPE: OVARY OTHR DR: Dr. Mick Marie MD Tissues: OVARIAN CYST Ovary, NOS Fallopian tube Procedures: Surgery Specimen Level IV HEADER OPERATION: Laparoscopic, ovarian cystectomy, right oophorectomy PRE-OP DIAGNOSIS: Dyspareunia, chronic pelvic pain in female, left ovarian cyst TISSUE SUBMITTED: Right ovary and right ovarian cyst with left tubal MICROSCOPIC DIAGNOSIS Right ovary and left tube and cyst, right oophorectomy and left salpingectomy: Right ovary- Mature cystic teratoma (dermoid cyst). Left fallopian tube- no pathologic diagnosis. Paratubal cyst. . 09/25/2024 MICROSCOPIC DESCRIPTION Slides are reviewed. GROSS DESCRIPTION Received in fixative is one container labeled with the patient's name and designated Right ovary, right ovarian cyst and left fallopian tube. The specimen consists of a cystic ovary measuring 5.5 x 7.0 x 2.5cm. Also present in the container is a cystic structure measuring 2.0cm in length and 0.6cm in diameter. Also present in the container is a portion of fallopian tube including fimbrial end measuring 3.6cm in length and 0.5cm in diameter. Serosal sectioning of the ovary reveals a cystic cavity filled with cheesy material and hairs. Grossly compatible with dermoid cyst. Cystic structure reveals it being filled with clear fluid. Grossly suggestive of tubal cyst. Serial section of the fallopian tube reveals unremarkable cut surfaces. Warehouse Team Leader sections are submitted in seven cassettes as follows: 1-4- ovary, 5&6- sections of the detached cyst, 7- fallopian tube. FA. 09/24/2024 TC:1 CPT:58460,00744
[2024-09-23] MEDS: Bupivacaine 0.25% 30 ML Vial (17:00)
--- NOTE | 2024-09-23 17:08 | OP.PCM_ITS ---
Problems Associated Problem List Diagnoses (1) History of right oophorectomy: (2) Chronic pelvic pain in female: (3) Dyspareunia: Operative Report (Standard) Operative Information Surgery/Procedure Performed: laparoscopic right oophorectomy and left salpingectomy Surgeon: Samara Canas Date of Procedure: 09/23/24 Procedure Start Time: 16:01 Procedure Stop Time: 17:11 Pre-Operative Diagnosis: ovarian cyst and pelvic pain Post-Operative Diagnosis: pelvic pain and right ovarian cystic tumor and left tube and cystic lesion Select all DRAINS/GRAFTS/IMPLANTS that apply: Drains (ramirez present during procedure removed after surgery completed) Drain details: ramirez Type of Anesthesia: General Estimated Blood Loss: 25 Specimen collected: Yes Description of specimen(s) removed: right ovary left tube and cystic lesion, right ovarian cyst fluid Description of surgery: Patient was placed under general anesthesia was prepped and draped in normal sterile fashion in the dorsolithotomy position. Ramirez catheter placed in the bladder and sponge stick placed in the vagina. Umbilicus was injected with lidocaine and 5 mm incision made and umbilicus elevated and Veress needle attempted to be inserted however could not be confirmed to be intra-abdominal after multiple attempts due to a high opening pressure and therefore the decision was made to enter via Simpson technique. Using that technique and then entered and into the abdomen confirming to be intra-abdominal and placing a Simpson trocar. 0 Vicryl's were placed as stay sutures in the fascia and patient was noted to have severely elevated blood pressures per anesthesia this was likely due to her underlying chronic condition. This was able to be controlled with IV hydralazine. The abdomen was inspected and no abnormalities or injuries noted. Decision was made to continue with the procedure. Blood pressures remained within normal limits. Right and left lower quadrant 5 mm ports were placed. Pelvis was visualized and contrary to the patient's previous history of thinking she had had her right ovary removed she was noted to have both of her ovaries and still have her left tube present. Her right ovary was significantly enlarged and noted to be abnormal with a multicystic appearance to it therefore the right ovary was removed using the LigaSure device there were adhesions noted which were taken down with LigaSure device. The left tube was noted to be cystic and abnormal which was also removed and a cystic area was also excised. A small nodule was taken off of the remaining communicating portion between the left and right ovary. The left ovary had a normal cystic appearance however using the monopolar scissors holes were drilled into these areas to confirm that there were no pathologic cysts and just clear serous fluid was drained from these areas confirming that this was a normal appearance to the ovary. The decision was made to leave the left ovary since it was away from the area of pain and appeared to be normal. All tissue removed in the bag and excellent hemostasis noted. Umbilical port closed after fascia closed with 0 Vicryl and port sites irrigated and closed with 4-0 Monocryl. Dermabond applied and pressure dressing applied to the umbilicus. Patient was awoken and taken recovery in stable condition Ramirez catheter removed. Surgical Findings: right enlarged cystic ovary filled with sebaceous hair andfluid suspect dermoid and left tube and cystic lesion Thermal Intelligence Analyst bicycle repairman: Yes Drafting Teacher: Antonio Peña Tasks completed by first dyer: Opening & closing, Trocar and Retracting Complications Complications: No Procedures Urinary/Genital 52xxx-59xxx: 42201 Laproscopic BS/O
--- NOTE | 2024-09-23 17:09 | DCINST_ITS ---
Discharge Instructions Diet Discharge Diet: No restrictions Activity Discharge Activity: Return to Normal Activity, May Not Drive ( while taking narcotic pain meds, when pain free), May Shower and May Take a Tub Bath (in 7 days) May resume sexual activity in: 1 week Weight Bearing Status: Full weight bearing Dressing / Incision Call your doctor if your incision/area has: Continuous Slow Oozing, Sudden Increased Bleeding, Increased Pain/ Swelling, Increased Redness and Foul Smelling Discharge Call your doctor if you observe: Fever of 101 or Higher, Using more than 1 pad per hour, Shortness of breath, Chest pain and Uncontrolled pain Suture Line Care: Avoid Pulling/Pushing and Avoid Pinching/Bending Remove Dressing in: 1 week (if present) Cleanse incision/area with: Soap & Water and Keep Dressing Clean & Dry Follow Up Care When: Call to make an appointment with your doctor for a fu/incision check in 1- 2 weeks. Test Results: Test results from this visit will be discussed in further detail at your follow- up appointment, if applicable. Discharge Plan Admission Attending Provider: Samara Canas Primary Care Provider: Mick Marie Instructions Print Language: Senegalese Discharge Orders/Prescriptions Prescriptions: New oxycodone-acetaminophen [Percocet] 5-325 mg tablet 1 tab PO Q6H PRN (Reason: pain) 7 Days Qty: 10 0RF naproxen 500 mg tablet 500 mg PO BID PRN PRN (Reason: Pain) Qty: 30 1RF No Action amiloride 5 mg tablet 10 mg PO BID clonidine HCl 0.1 mg tablet 0.1 mg PO BID hydralazine 25 mg tablet 25 mg PO TID escitalopram oxalate [Lexapro] 10 mg tablet 10 mg PO QDAY verapamil 180 mg capsule,ext rel. pellets 24 hr 180 mg PO DAILY Qty: 60 11RF Referrals / Follow Up: Mick Marie MD [Primary Care Provider] - Disposition Disposition (needs filled in before D/C Order can be placed): Home, Self Care
--- NOTE | 2024-09-23 17:21 | PCM.POST.ANE ---
Anesthesia: Postop Eval I Current Vital Signs Temperature: 98.1 F Pulse Rate: 115 Blood Pressure: 144/80 Respiratory Rate: 20 Pulse Ox: 97 Assessment Airway patent: Yes Spontaneous unlabored respirations: Yes nausea: No Vomiting: No Anesthesia Complication: No Fluid Hydration Crystalloid volume administer (ml): 1,000 Total IV fluid infused: 1,000 Progress Note Anesthesia document: Postop Eval 1 completed: Yes
--- NOTE | 2024-09-23 17:35 | POSTOPAN2_ITS ---
Anesthesia Postop Eval I Sum Postop Eval Completion status Anesthesia document: Postop Eval 1 completed: Yes Anesthesia Postop Eval I Summary Anesthesia Postop Eval I Summary: Anesthesia Postop Eval I: Assessment Summary Airway patent Yes 09/23/24 17:21 APPLIANCE SERVICE TECHNICIAN.CSIR Spontaneous unlabored Yes 09/23/24 17:21 APPLIANCE SERVICE TECHNICIAN.CSIR respirations Mental status nausea No 09/23/24 17:21 APPLIANCE SERVICE TECHNICIAN.CSIR Vomiting No 09/23/24 17:21 APPLIANCE SERVICE TECHNICIAN.CSIR Anesthesia Postop Eval I: Fluid Summary Crystalloid volume administer 1,000 09/23/24 17:21 APPLIANCE SERVICE TECHNICIAN.CSIR (ml) Colloids volume administered ( ml) Blood Product volume administered (ml) Total IV fluid infused 1,000 09/23/24 17:21 APPLIANCE SERVICE TECHNICIAN.CSIR Anesthesia Postop Eval I: Summary Notes Anesthesia Complication No 09/23/24 17:21 APPLIANCE SERVICE TECHNICIAN.CSIR Anesthesia Complication Comment: Post-operative progress note Anesthesia: Postop Eval II Evaluation Mental status: Awake Pain Level: 0 nausea: No Vomiting: No
--- NOTE | 2024-09-23 17:35 | PCM.POSTANE2 ---
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 Spontaneous unlabored Yes 09/23/24 17:21 WASH RACK OPERATOR.CSIR respirations Mental status nausea No 09/23/24 17:21 WASH RACK OPERATOR.CSIR Vomiting No 09/23/24 17:21 WASH RACK OPERATOR.CSIR Anesthesia Postop Eval I: Fluid Summary Crystalloid volume administer 1,000 09/23/24 17:21 WASH RACK OPERATOR.CSIR (ml) Colloids volume administered ( ml) Blood Product volume administered (ml) Total IV fluid infused 1,000 09/23/24 17:21 WASH RACK OPERATOR.CSIR Anesthesia Postop Eval I: Summary Notes Anesthesia Complication No 09/23/24 17:21 WASH RACK OPERATOR.CSIR Anesthesia Complication Comment: Post-operative progress note Anesthesia: Postop Eval II Evaluation Mental status: Awake Pain Level: 0 nausea: No Vomiting: No
[2024-09-23 17:36] LABS: Cytology, Body Fluid / CSF SEE PATHOLOGY REPORT
== END 2024-09-23 18:03 | disposition home or self-care (01) ==
LOC: SDC 13:12 → AC 13:14
PROVIDERS: PCP Family Medicine; Referring Provider Obstetrics & Gynecology; Visit Provider Obstetrics & Gynecology
PROC: (CPT 58661; principal; 2024-09-23 14:30)
DX: D39.11 Neoplasm of uncertain behavior of right ovary (principal); N94.10 Unspecified dyspareunia; G89.29 Other chronic pain; N83.202 Unspecified ovarian cyst, left side; I11.9 Hypertensive heart disease without heart failure; E78.2 Mixed hyperlipidemia; Z79.899 Other long term (current) drug therapy; Z87.891 Personal history of nicotine dependence; Z90.710 Acquired absence of both cervix and uterus
CPT/HCPCS: 58661; 00840; 81025; 88108; 88305; 88313; 93005; J7120; J2405

== ENCOUNTER → 2024-09-24 | Outpatient (CLI) | payer BC, SELFPAY | END | disposition home or self-care (01) | LOC: US 14:58 | PROVIDERS: PCP Family Medicine; Referring Provider Family Medicine; Visit Provider Family Medicine | DX: E01.0 Iodine-deficiency related diffuse (endemic) goiter (principal); R09.A2 Foreign body sensation, throat | CPT/HCPCS: 76536 ==

== ENCOUNTER → 2024-09-25 | Outpatient (CLI) | payer BC, SELFPAY | END | disposition home or self-care (01) | LOC: RAD 09:13 | PROVIDERS: PCP Family Medicine; Referring Provider Family Medicine; Visit Provider Family Medicine | DX: E01.0 Iodine-deficiency related diffuse (endemic) goiter (principal) | CPT/HCPCS: 74220 ==

== ENCOUNTER → 2025-01-29 | Outpatient (CLI) | payer BC, SELFPAY ==
--- NOTE | 2025-01-29 15:50 | CT_ITS ---
PROCEDURE: BRAIN/HEAD WITHOUT CONTRAST 01/29/2025 REASON FOR EXAM: RECENT START ON ELIQUIS, 4 DAYS LATER ARRIAZA, FATIGUE, HAS DYSMETRIA, TECHNIQUE: Head CT without intravenous contrast. Coronal and Sagittal reconstruction series were provided. One or more dose reduction techniques were used (e.g., Automated exposure control, adjustment of the mA and/or kV according to patient size, use of iterative reconstruction technique. RADIATION DOSE SUMMARY: DLP: 745.49 mGycm COMPARISON: None. FINDINGS: There is no acute intracranial hemorrhage, mass effect or midline shift. There are no abnormal extra-axial fluid collections present. The ventricles and sulci are within normal limits. The calvarium is intact. Visualized paranasal sinuses are unremarkable. The mastoids are well aerated. CT/Brain/Head without Contrast IMPRESSION: No acute intracranial hemorrhage, mass effect or midline shift. Reading Location: [id number]
== END | disposition home or self-care (01) ==
LOC: CT 15:48
PROVIDERS: PCP Family Medicine; Referring Provider Family Medicine; Visit Provider Family Medicine
DX: R27.8 Other lack of coordination (principal); Z79.01 Long term (current) use of anticoagulants
CPT/HCPCS: 70450

== ENCOUNTER → 2025-03-23 | Outpatient (CLI) | payer BC, SELFPAY ==
--- NOTE | 2025-03-23 14:01 | MRI_ITS ---
EXAM: BRAIN W/WO CONTRAST CLINICAL HISTORY: BLURRED VISION, DYSMETRIA, EVAL FOR MS COMPARISON: None. TECHNIQUE: Multiplanar, multisequence MR images of the brain were obtained without and with 15 cc Clariscan gadolinium contrast material. FINDINGS: No intracranial hemorrhage, mass, mass effect, midline shift or pathologic extra- axial fluid collection. No hydrocephalus. There is no significant white matter disease. No areas of restricted diffusion to suggest acute ischemia or infarction. No gradient signal blooming artifacts are identified. No cerebellar tonsillar ectopia. No sellar/suprasellar signal abnormalities. The ocular globes and intraorbital soft tissues are symmetrically unremarkable. There is minimal mucosal thickening in the floor of the right maxillary sinus. There are no suspicious enhancing lesions. MRI/Brain W/WO Contrast IMPRESSION: There is minimal mucosal thickening in the floor of the right maxillary sinus. There is no significant white matter disease, or suspicious enhancing lesion. Reading Location: [facility]
== END | disposition home or self-care (01) ==
LOC: MRI 13:47
PROVIDERS: PCP Family Medicine; Referring Provider Family Medicine; Visit Provider Family Medicine
DX: H53.8 Other visual disturbances (principal)
CPT/HCPCS: 70553; A9575

== ENCOUNTER → 2025-06-09 | Outpatient (CLI) | payer BC, SELFPAY ==
[2025-06-09 19:04] LABS: AST(SGOT) 11 U/L (<=31); Alanine Aminotransfer ALT/SGPT 8 U/L (<=34); Albumin, Serum 4.4 g/dL (3.5-5.0); Alkaline Phosphatase 56 U/L (35-104); Anion Gap 12 (5-15); BUN 14 mg/dL (4-19); BUN/Creat Ratio 19.9 RATIO (10-20); CRP < 3.00 mg/L (0.0-3.0); Calcium,Total 8.9 mg/dL (7.6-11.0); Carbon Dioxide 23.0 mmol/L (21.0-32.0); Chloride 105 mmol/L (98-108); Globulin 2.6 g/dL (2.2-4.2); Glucose 81 mg/dL (70-99); Magnesium 2.1 mg/dL (1.5-2.2); Potassium 4.6 mmol/L (3.3-5.1)
[2025-06-11 14:09] LABS: Lyme Scn Total Ab w/Rflx Negative (Negative)
== END | disposition home or self-care (01) ==
LOC: MFPLAB 16:32
PROVIDERS: PCP Family Medicine; Visit Provider Family Medicine
DX: M79.10 Myalgia, unspecified site (principal); R53.83 Other fatigue
CPT/HCPCS: 36415; 80053; 83735; 84443; 86140; 86618

== ENCOUNTER → 2025-06-29 | Outpatient (CLI) | payer BC, SELFPAY ==
[2025-06-29 15:24] LABS: Hematocrit 41.0 % (37-47); Hemoglobin 13.6 g/dL (12.0-15.0); Mean Corp Hgb Conc 33.2 g/dL (32-36); Mean Corpuscular Volume 89.5 fL (81-99); Mean Platelet Vol. 11.2 fl (6.2-12.0); Platelet Count 343 K/mm3 (150-450); RBC Distribution Width CV 14.1 % (11.6-14.6); RBC Distribution Width SD 46.0 fl (35.1-43.9); Red Blood Count 4.58 M/mm3 (4.2-5.4); White Blood Count 6.0 K/mm3 (4.4-11.0)
[2025-06-29 15:29] LABS: Internal QC Validated? YES +Cl - CLEAR BKGD; Pregnancy, Serum, hCG Quali. NEGATIVE Negative
[2025-06-29 15:30] LABS: Record Kit Lot#, Serum Preg. 962302
[2025-06-29 15:59] LABS: AST(SGOT) 13 U/L (<=31); Alanine Aminotransfer ALT/SGPT 8 U/L (<=34); Albumin, Serum 4.5 g/dL (3.5-5.0); Alkaline Phosphatase 47 U/L (35-104); Anion Gap 13 (5-15); BUN 8 mg/dL (4-19); BUN/Creat Ratio 10.7 RATIO (10-20); Calcium,Total 9.1 mg/dL (7.6-11.0); Carbon Dioxide 22.7 mmol/L (21.0-32.0); Chloride 104 mmol/L (98-108); Globulin 2.5 g/dL (2.2-4.2); Glucose 78 mg/dL (70-99); Lipase 57 U/L (13-75); Potassium 4.3 mmol/L (3.3-5.1)
== END | disposition home or self-care (01) ==
LOC: MFPLAB 11:35
PROVIDERS: PCP Family Medicine; Visit Provider Family Medicine
DX: R10.9 Unspecified abdominal pain (principal)
CPT/HCPCS: 36415; 80053; 83690; 84703; 85027

== ENCOUNTER → 2025-07-03 | Outpatient (CLI) | payer BC, SELFPAY ==
--- NOTE | 2025-07-03 12:47 | CT_ITS ---
PROCEDURE: ABDOMEN/PELVIS WITH CONTRAST 07/03/2025 REASON FOR EXAM: ABD PAIN Left lower quadrant pain. Several day history of rectal bleeding. TECHNIQUE: Procedure Code: [id number] Modality: CT Procedure: ABDOMEN/PELVIS WITH CONTRAST Coronal and Sagittal reconstruction series were provided. CONTRAST: Isovue-300 VOLUME: 100 mL One or more dose reduction techniques were used (e.g., Automated exposure control, adjustment of the mA and/or kV according to patient size, use of iterative reconstruction technique. RADIATION DOSE SUMMARY: CTDlvol: 14.6 mGy DLP: 918.76 mGycm COMPARISON: None FINDINGS: Lung bases: Minimal increased linear markings at the right lung base suggestive of basilar atelectasis. Liver: Normal size. No mass. Gallbladder: Questionable tiny gallstone along the dependent portion of the gallbladder lumen. Spleen: Normal size. Pancreas: Normal size without evidence of mass surrounding inflammation or ductal dilation. Adrenals: Unremarkable Kidneys: Normal renal sizes. No hydronephrosis. Bladder: Unremarkable Reproductive Organs: Prior hysterectomy. Adnexal regions are unremarkable. Small follicle seen in the left ovary. Bowel: Fecal material is seen in the rectosigmoid colon. Scattered sigmoid diverticula. No radiographic evidence of diverticulitis. Appendix: Unremarkable Lymph nodes: Unremarkable. Vasculature: The abdominal aorta and IVC are normal. Peritoneum / Retroperitoneum: Unremarkable Bones: Mild degenerative changes. CT/Abdomen/Pelvis WITH Contrast IMPRESSION: Questionable tiny gallstones along the dependent portion the gallbladder lumen. Scattered sigmoid diverticula. No radiographic evidence of diverticulitis. Fe nanda material is seen in the rectosigmoid colon. Reading Location: [id number]
[2025-07-03 12:54] VITALS: BP 135/106; PULSE 74; RESP 18; O2SAT 100; BMI 25.7
[2025-07-03] MEDS: DiphenhydrAMINE 50 MG/ML Syringe IV (13:08)
[2025-07-03] MEDS: 0.9% Saline Lock 10 ML Syringe IV (13:10)
== END | disposition home or self-care (01) ==
LOC: CT 12:46
PROVIDERS: PCP Family Medicine; Referring Provider Family Medicine; Visit Provider Family Medicine
DX: R10.9 Unspecified abdominal pain (principal)
CPT/HCPCS: 74177; 96374; Q9967; A4216

== ENCOUNTER 2025-07-15 07:10 | Day surgery (SDC) | payer BC, SELFPAY ==
--- NOTE | 2025-07-13 16:37 | PAT.ANE_ITS ---
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 When Was Last Pacemaker Check QUESTION #4 FULL TEXT: You/Your Family Experience fever (hyperthermia) with Anesthesia Last Oral Intake Last Oral intake: Last Oral Intake NPO since Meds taken in AM with sips of water? Meds patient instructed to take am of surgery PONV PONV - shipboard intelligence analyst: PONV - shipboard intelligence analyst Female Yes 07/13/25 16:27 HX of Motion Sickness No 07/13/25 16:27 HX of N/V After Surgery No 07/13/25 16:27 Non-Smoker Yes 07/13/25 16:27 Duration of Surgery greater No 07/13/25 16:27 than 60 minutes Number of Risk Factors 2 07/13/25 16:27 PONV Score Moderate Risk 07/13/25 16:27 Height & Weight Height & Weight: Anesthesia: Height & Weight Height 5 ft 6 in 07/13/25 15:03 Respiratory Assessment Respiratory Assessment - shipboard intelligence analyst: Respiratory Tract Infection Hx - shipboard intelligence analyst Hx Respiratory Tract Infection No 07/13/25 16:27 STOP Sleep Apnea STOP Sleep Apnea - shipboard intelligence analyst: STOP Sleep Apnea - shipboard intelligence analyst Hx Hypertension Yes: CONTROLLED WITH MED 07/13/25 16:27 Hx Sleep Apnea No 07/13/25 16:27 CPAP BIPAP Do you snore loudly (louder No 07/13/25 16:27 than talking or can be heard Do you often feel tired/ No 07/13/25 16:27 fatigued/ sleepy during daytime? Has anyone observed you stop No 07/13/25 16:27 breathing during sleep? STOP Results Negative 07/13/25 16:27 QUESTION #5 FULL TEXT : Do you snore loudly (louder than talking or can be heard through closed doors)? 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 Specify any problems Hx of Preganancy in last 3 No 07/13/25 16:27 Months Nurse Filling Out Transfusion DSCHRIBER 07/13/25 16:27 & Questions: Date: 07/13/25 07/13/25 16:27 Time: 16:28 07/13/25 16:27 Patient unable to answer at this time (ie. confused, unrespo /Reproduction History /Reproductive History - shipboard intelligence analyst: /Reproductive Hx- shipboard intelligence analyst Hx Now No 07/13/25 16:27 Gestational Age (in weeks): EDC: Hx Hx Para Hx Section SAB No 07/13/25 16:27 PFSH Medical History (Updated 07/13/25 @ 16:31 by Anisa Laguna) Blood disorder Gastric reflux Wears contact lenses Depression Anxiety Easy bruising Injury of head and neck Former smoker History of echocardiogram Cardiology follow-up encounter Juan J's syndrome PSVT (paroxysmal supraventricular tachycardia) Hypertensive heart disease without HF (heart failure) Mixed hyperlipidemia Essential hypertension TIA (transient ischemic attack) Tachycardia Home Medications ?Medication ?Instructions ?Recorded ?Last Taken ?Type amiloride 5 mg tablet 10 mg PO BID 02/16/22 History clonidine HCl 0.1 mg tablet 0.1 mg PO TID hypertensive 05/22/22 09/22/24 History emergency fluoxetine 10 mg capsule 10 mg PO BID 07/13/25 Unknow n History hydralazine 50 mg tablet 50 mg PO TID 07/13/25 Unknow n History omeprazole 40 mg capsule,delayed 40 mg PO QDAY #30 cap s 07/13/25 Unknown Rx release verapamil 180 mg tablet,extended 180 mg PO DAILY 07/13 Unknown History release Allergy/AdvReac Type Severity Reaction Status Date / Time adhesive tape Allergy Mild Rash Verified 07/13/25 16:24 Iodinated Contrast Media Allergy Unknown Itching Verified 07/13/25 16:24 Family History (Updated 07/13/25 @ 15:03 by Rosanne De Santiago) Father Heart disease Grandfather Heart disease Maternal Grandmother Breast cancer Surgical History (Updated 07/13/25 @ 16:32 by Anisa Laguna) Hx of ovarian cystectomy Hx of foot surgery History of right oophorectomy History of resection of rib S/P tubal ligation History of hysterectomy Social History household members: spouse current occupational status: employed 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 Sinus rhythm with fusion complexes Echo (EF%) pertinent findings: Echo 03/02/2021. LV cavity size is normal. Wall thickness is normal. Estimated EF is 70%. There are no regional wall motion abnormalities. Consult pertinent findings: Cardiology note 08/28/2022. Has history of underlying PSVT/pattern potentially compatible with a preexcitation syndrome/WPW who has undergone previous extensive cardiovascular evaluation from a noninvasive and invasive standpoint with both locally as well as in [facility]. WPW recommendation patient will continue with current dose of her male. Recommendation Anesthesia Recommendation Anesthesia recommendation: OPTIMIZED for anesthesia
[2025-07-15] VITALS (8 sets, daily range): BP systolic 118–151; BP diastolic 89–107; PULSE 81–87; RESP 14–18; TEMP 36.3–36.8; O2SAT 96–100; BMI 25.6
--- OUTSIDE RECORDS SUMMARY | 2025-07-15 07:16 | XMS RPT_ITS | CCD ---
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 disease without esophagitis] 07-13-2025 Chronic Essential hypertension (20 sources) Malignant hypertension; Translations: [Essential (primary) hypertension] Onset: 01-15-2013 Chronic Comment on above: CONTROLLED WITH MED Fluid and electrolyte disorders (18 sources) Hypokalemia; Translations: [Hypokalemia] Onset: 07-19-2022 Episodic Headache; including migraine (20 sources) Headache; Translations: [Headache] 03-13-2018 Episodic Hypertension with complications and secondary hypertension (20 sources) Hypertensive heart disease; Translations: [Hypertensive heart disease without heart failure] Onset: 07-19-2022 Chronic Immunizations and screening for infectious disease (2 sources) Contact with and (suspected) exposure to other viral communicable diseases; Translations: [Contact w and exposure to oth viral communicable diseases] Onset: 09-18-2022 Episodic Intracranial injury (16 sources) Concussion with no loss of consciousness; Translations: [Concussion without loss of consciousness, initial encounter] 05-29-2020 Episodic Mood disorders (1 source) Recurrent major depressive episodes, moderate 01-16-2025 Chronic Nonspecific chest pain (2 sources) Chest pain; Translations: [Chest pain, unspecified] Onset: 2025 Episodic Open wounds of head; neck; and trunk (20 sources) Laceration - injury; Translations: [Laceration] 06-02-2020 Episodic Other aftercare (1 source) Surgical follow-up; Translations: [Encounter for follow-up examination after completed treatment for conditions other than malignant neoplasm] 10-14-2024 Episodic Other circulatory disease (16 sources) History of paroxysmal supraventricular tachycardia; Translations: [Personal history of other diseases of the circulatory system] 09-26-2019 Episodic Other circulatory disease (3 sources) Personal [...] Translations: [Pain in left hand] Episodic Other connective tissue disease (20 sources) Plantar fasciitis; Translations: [Plantar fascial fibromatosis] Onset: 12-24-2024 02-27-2024 Episodic Other connective tissue disease (20 sources) Pain in left foot; Translations: [Pain in left foot] Onset: 12-24-2024 06-18-2024 Episodic Other connective tissue disease (6 sources) Plantar fascial fibromatosis; Translations: [Plantar fascial fibromatosis] Onset: 12-24-2024 Episodic Other connective tissue disease (6 sources) Pain in left foot; Translations: [Pain in left foot] Onset: 12-24-2024 Episodic Other connective tissue disease (1 source) Myalgia, unspecified site; Translations: [Myalgia, unspecified site] Onset: 06-14-2025 Episodic Other female genital disorders (5 sources) Dyspareunia; Translations: [Dyspareunia] 09-11-2024 Chronic Other nervous system disorders (5 sources) Brachial plexus disorders; Translations: [Brachial plexus disorders] Onset: 08-15-2022 Chronic Other nervous system disorders (4 sources) Thoracic outlet syndrome; Translations: [Thoracic Outlet Syndrome] 09-21-2022 Chronic Other nervous system disorders (16 sources) Paresthesia; Translations: [Paresthesia of skin] 06-08-2021 Episodic Other nervous system disorders (14 sources) Numbness of face; Translations: [Anesthesia of skin] 04-03-2022 Episodic Other nervous system disorders (2 sources) Anesthesia of skin; Translations: [Anesthesia of skin] Onset: 09-20-2022 Episodic Other screening for suspected conditions (not mental disorders or infectious disease) (1 source) Imaging result abnormal; Translations: [Abnormal findings on diagnostic imaging of other specified body structures] Onset: 07-11-2024 Chronic Residual codes; unclassified (5 sources) Flushing; Translations: [Flushing] 08-04-2024 Episodic Comment on above: FSH, estradiol Residual codes; unclassified (5 sources) History of right oophorectomy; Translations: [Acquired absence of ovaries, unilateral] 09-23-2024 Episodic Comment on above: left salpingectomy, right oophorectomy with ?dermoid, left ovary remains Screening and history of mental health and substance abuse codes (1 source) Personal history of nicotine dependence; Translations: [Personal history of nicotine dependence] Onset: 09-20-2022 Episodic Spondylosis; intervertebral disc disorders; other back problems (2 sources) Muscle spasm of back; Translations: [Muscle spasm of back] Onset: 07-29-2024 Episodic Sprains and strains (2 sources) Strain of unspecified muscle, fascia and tendon at shoulder and upper arm level, left arm, initial encounter; Translations: [Strain of unspecified muscle, fascia and tendon at shoulder and upper arm level, left arm, initial encounter] Onset: 07-29-2024 Episodic Superficial injury; contusion (1 source) Contusion of back; Translations: [Contusion of unspecified back wall of thorax, initial encounter] Onset: 07-11-2024 Episodic Thyroid disorders (1 source) Iodine-deficiency related diffuse (endemic) goiter; Translations: [Iodine-deficiency related diffuse (endemic) goiter] Onset: 10-08-2024 Chronic Transient cerebral ischemia (14 sources) Transient cerebral ischemia; Translations: [Transient cerebral ischemic attack, unspecified] Onset: 01-06-2025 01-06-2025 Chronic Unclassified (2 sources) New Patient; Translations: [New Patient] Onset: 03-22-2022 Unclassified (1 source) Contact with and (suspected) exposure to COVID-19; Translations: [Contact with and (suspected) exposure to COVID-19] Onset: 09-20-2022 Unclassified (1 source) Encounter for screening for COVID-19; Translations: [Encounter for screening for COVID-19] Onset: 09-18-2022 Unclassified (2 sources) Post-op Onset: 02-20-2025 Past or Other Problems Problem Classification Problem Date Documented Date Episodic/Chronic Blindness and vision defects (15 sources) Visual disturbance; Translations: [Unspecified visual disturbance] Onset: 03-27-2025 04-03-2022 Episodic Other aftercare (1 source) Encounter for follow-up examination after completed treatment for conditions other than malignant neoplasm; Translations: [Encounter for follow-up examination after completed treatment for conditions other than malignant neoplasm] Onset: 10-14-2024 Episodic Other and unspecified benign neoplasm (1 source) Benign neoplasm, unspecified site; Translations: [Benign neoplasm, unspecified site] Onset: 08-11-2024 Episodic Other nervous system disorders (1 source) Paresthesia of hand ; Translations: [Paresthesia of skin] Onset: 12-05-2013 12-05-2013 Episodic Other nervous system disorders (1 source) Other lack of coordination; Translations: [Other lack of coordination] Onset: 02-03-2025 Episodic Other nutritional; endocrine; and metabolic disorders (1 source) Overweight; Translations: [Overweight] Onset: 01-15-2013 01-15-2013 Episodic Other screening for suspected conditions (not mental disorders or infectious disease) (3 sources) Electrocardiogram abnormal; Translations: [Abnormal electrocardiogram [ECG] [EKG]] Onset: 05-27-2014 05-27-2014 Episodic Otitis media and related conditions (1 source) Serous otitis media; Translations: [Unspecified nonsuppurative otitis media, unspecified ear] Onset: 12-05-2013 12-05-2013 Episodic Ovarian cyst (7 sources) Cyst of ovary; Translations: [Unspecified ovarian cyst, left side] Onset: 09-04-2024 09-11-2024 Episodic Comment on above: increasing in size, pcos in appearance additional labs ordered; CA 125, CEA:nl Residual codes; unclassified (1 source) Flushing; Translations: [Flushing] Onset: 08-04-2024 Episodic Unclassified (1 source) Encounter for screening for COVID-19; Translations: [Encounter for screening for COVID-19] Onset: 09-18-2022 Results Test Name Value Interpretation Reference Range Facility MR/PATKamryn 07-13-2025 MR/PAT.[facility] Medical Records Department [address] [place] [address] PAT - Anesthesia 07/13/25 1637 MR#: [id number] Acct: [id number] Name: MALISSA ELLIOTT Rep #: [id number] : 1985 40 From: Tremaine Do MD PCP: Dr. 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 When Was Last Pacemaker Check QUESTION #4 FULL TEXT: You/Your Family Experience fever (hyperthermia) with Anesthesia Last Oral Intake Last Oral intake: Last Oral Intake NPO since Meds taken in AM with sips of water? 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 Female Yes 07/13/25 16:27 HX of Motion Sickness No 07/13/25 16:27 HX of N/V After Surgery No 07/13/25 16:27 Non-Smoker Yes 07/13/25 16:27 Duration of Surgery greater No 07/13/25 16:27 than 60 minutes Number of Risk Factors 2 07/13/25 16:27 PONV Score Moderate Risk 07/13/25 16:27 Height Weight Height Weight: Anesthesia: Height Weight Height 5 ft 6 in 07/13/25 15:03 Respiratory Assessment Respiratory Assessment - barn worker: Respiratory Tract Infection Hx - barn worker Hx Respiratory Tract Infection No 07/13/25 16:27 STOP Sleep Apnea STOP Sleep Apnea - barn worker: STOP Sleep Apnea - barn worker Hx Hypertension Yes: CONTROLLED WITH MED 07/13/25 16:27 Hx Sleep Apnea No 07/13/25 16:27 CPAP BIPAP Do you snore loudly (louder No 07/13/25 16:27 than talking or can be heard Do you often feel tired/ No 07/13/25 16:27 fatigued/ sleepy during daytime? Has anyone observed you stop No 07/13/25 16:27 breathing during sleep? STOP Results Negative 07/13/25 16:27 QUESTION #5 FULL TEXT : Do you snore loudly (louder than talking or can be heard through closed doors)? Tobacco Use History Tobacco Use History - barn worker: Tobacco Use History - barn worker Tobacco Use Smoking Status Former smoker 07/13/25 16:27 Hx Tobacco Use No 07/13/25 16:27 Years Smoking Packs Smoked per Day Smoking Cessation Date was Yes - quit smoking within 15 07/13/25 16:27 within the last 15 years years Hx Smoking Cessation Date 05/05/22 07/13/25 16:27 Hx Smoking Cessation No 07/13/25 16:27 Counseling Hematologic Medial History Hematologic Hx - barn worker: Hematologic Medical Hx - carpenter prototype Hx of Blood Transfusion No 07/13/25 16:27 Hx of Transfusion in last 3 No 07/13/25 16:27 Months Date of Last Transfusion (if within last 3 months) Ever experience any problems No 07/13/25 16:27 with transfusion(s)? Specify any problems Hx of Preganancy in last 3 No 07/13/25 16:27 Months Nurse Filling Out Transfusion DSCHRIBER 07/13/25 16:27 Questions: Date: 07/13/25 07/13/25 16:27 Time: 16:28 07/13/25 16:27 Patient unable to answer at this time (ie. confused, unrespo /Reproduction History /Reproductive History - barn worker: /Reproductive Hx- barn worker Hx Now No 07/13/25 16:27 Gestational Age (in weeks): EDC: Hx Hx Para Hx Section SAB No 07/13/25 16:27 [facility] Medical History (Updated 07/13/25 @ 16:31 by Anisa Laguna) Blood disorder Gastric reflux Wears contact lenses Depression Anxiety Easy bruising Injury of head and neck Former smoker History of echocardiogram Cardiology follow-up encounter Juan J's syndrome PSVT (paroxysmal supraventricular tachycardia) Hypertensive heart disease without HF (heart failure) Mixed hyperlipidemia Essential hypertension TIA (transient ischemic attack) Tachycardia Home Medications ???Medication ???Instructions ???Recorded ???Last Taken ???Type amiloride 5 mg tablet 10 mg PO BID 02/16/22 09/22/24 His tory clonidine HCl 0.1 mg tablet 0.1 mg PO TID hypertensive 2 09/22/24 History emergency fluoxetine 10 mg capsule 10 mg PO BID 07/13/25 Unknown Hist ory hydralazine 50 mg tablet 50 mg PO TID 07/13/25 Unknown Hist ory omeprazole (more content not included)... Normal [facility] Surgery Visit Reporton 07-13 Surgery Visit Report [facility] [address] [place] [address] OFFICE VISIT Date of Service: 07/13/25 MR#: [id number] Acct: [id number] Name: MALISSA ELLIOTT BRIANNA Rep #: [id number] : 1985 Provider: Dr. Jessica dang MD Age/Sex: 40/F Location: [facility] Status: Signed Intake Vital Signs 07/03/25 12:54 07/13/25 15:03 Height 5 ft 6 in 5 ft 6 in Weight: 161 lb BMI 25.9 BP 128/88 H Blood Pressure Location Rt brachial Position Sitting Respiration 17 Pulse 85 Pulse Source Monitor Pulse Oximetry (%) 99 Oxygen Delivery Method room air Intake Visit Reasons: Abdominal pain Chief Complaint: abdominal pain/scopes Is patient in pain?: No Allergies adhesive tape Allergy (Mild, Verified 07/13/25 16:24) Rash Iodinated Contrast Media Allergy (Unknown, Verified 07/13/25 16:24) Itching Medications ???Medication ???Instructions ???Recorded ???Confirmed ???Type amiloride 5 mg tablet 10 mg PO BID 02/16/22 07/13/25 His tory clonidine HCl 0.1 mg tablet 0.1 mg PO TID hypertensive 2 07/13/25 History emergency fluoxetine 10 mg capsule 10 mg PO BID 07/13/25 07/13/25 His tory hydralazine 50 mg tablet 50 mg PO TID 07/13/25 07/13/25 His tory omeprazole 40 mg capsule,delayed 40 mg PO QDAY #30 caps 07/13/25 Rx release verapamil 180 mg tablet,extended 180 mg PO DAILY 07/13/25 07/13/25 History release PFSH Medical History (Updated 07/14/25 @ 09:[address] Jessica Qureshi MD) Blood disorder Gastric reflux Wears contact lenses Depression Anxiety Easy bruising Injury of head and neck Former smoker History of echocardiogram Cardiology follow-up encounter Juan J's syndrome PSVT (paroxysmal supraventricular tachycardia) Hypertensive heart disease without HF (heart failure) Mixed hyperlipidemia Essential hypertension TIA (transient ischemic attack) Tachycardia Surgical History (Updated 07/13/25 @ 16:32 by Anisa Laguna) Hx of ovarian cystectomy Hx of foot surgery History of right oophorectomy History of resection of rib S/P tubal ligation History of hysterectomy Family History (Updated 07/13/25 @ 15:03 by Rosanne De Santiago) Father Heart disease Grandfather Heart disease Maternal Grandmother Breast cancer Social History household members: spouse current occupational status: employed 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 Patient states that for the last 2 months she has had lower abdominal discomfort constantly, and after eating it will increase to 6???7/10 and last for about a couple hours does not matter what she eats. Previous to 2 months ago this would happen on and off. Patient states she only has diarrhea after eating. Patient states she is also had about 30 pound weight loss in 2 months as she does not feel like eating if she gets abdominal cramping pain and also has to run to the bathroom. Patient does admit to some left upper quadrant pain as well as some burning up the esophagus which did bring up the esophagus only happens about 2 times a month. ROS General General: Yes weight change and fatigue; No appetite, colon cancer, breast cancer or weakness HEENT HEENT: No difficulty swallowing, eye injury, eye surgery, swollen glands or hoarseness Endo Endocrine: No thyroid disease, diabetes mellitus, thyroid cancer, Hair loss, heat intolerance or cold intolerance Skin Skin: No rash or changing moles Musc Musculoskeletal: No back problems, arthritis, rheumatoid arthritis, gout or joint pain Cardio Cardiovascular: Yes high blood pressure; No murmur, pacemaker, heart disease, atrial fibrillation, heart attack, heart stent, palpitations, shortness of breath with exertion or chest pain Psych Psychiatric: Yes depression and anxiety; No hearing voices Resp Respiratory: No shortness of breath, No sleep apnea, No cough, No COPD, No asthma, No emphysema and No wheezing Gastro Gastrointestinal: Yes abdominal pain, Yes nausea or vomiting, Yes diarrhea, Yes constipation, Yes blood in stool, Yes acid reflux, No hemorrhoids, No ulcers, Yes gallbladder problem and No black,tarry stools Won Hematologic: No blood thinners, No blood disorders, No bleeding, No anemia and No blood clots Neuro Neurologic: No system reviewed and no additional complaints, except as documented, No as per HPI, No abnormal gait, No abnormal hearing, No abnormal movements, No abnormal s (more content not included)... Normal [facility] Abdomen/Pelvis WITH Contrast on 07-03-2025 Abdomen/Pelvis WITH Contrast [facility] [address] [place], [place] [id number] Abdomen/Pelvis WITH Contrast MR#: [id number] Acct: [id number] Name: MALISSA ELLIOTT BRIANNA Rep #: [id number] : 1985 F 40 From: Winston ly MD PCP: Dr. Marco A Marie MD Status: REG CLI Study: Abdomen/Pelvis WITH Contrast Date of Exam: Exam# [id number] Ordering Dr: Maico Petty MD PROCEDURE: ABDOMEN/PELVIS WITH CONTRAST 07/03/2025 REASON FOR EXAM: ABD PAIN Left lower quadrant pain. Several day history of rectal bleeding. TECHNIQUE: Procedure Code: [id number] Modality: CT Procedure: ABDOMEN/PELVIS WITH CONTRAST Coronal and Sagittal reconstruction series were provided. CONTRAST: Isovue-300 VOLUME: 100 mL One or more dose reduction techniques were used (e.g., Automated exposure control, adjustment of the mA and/or kV according to patient size, use of iterative reconstruction technique. RADIATION DOSE SUMMARY: CTDlvol: 14.6 mGy DLP: 918.76 mGycm COMPARISON: None FINDINGS: Lung bases: Minimal increased linear markings at the right lung base suggestive of basilar atelectasis. Liver: Normal size. No mass. Gallbladder: Questionable tiny gallstone along the dependent portion of the gallbladder lumen. Spleen: Normal size. Pancreas: Normal size without evidence of mass surrounding inflammation or ductal dilation. Adrenals: Unremarkable Kidneys: Normal renal sizes. No hydronephrosis. Bladder: Unremarkable Reproductive Organs: Prior hysterectomy. Adnexal regions are unremarkable. Small follicle seen in the left ovary. Bowel: Fecal material is seen in the rectosigmoid colon. Scattered sigmoid diverticula. No radiographic evidence of diverticulitis. Appendix: Unremarkable Lymph nodes: Unremarkable. Vasculature: The abdominal aorta and IVC are normal. Peritoneum / Retroperitoneum: Unremarkable Bones: Mild degenerative changes. CT/Abdomen/Pelvis WITH Contrast IMPRESSION: Questionable tiny gallstones along the dependent portion the gallbladder lumen. Scattered sigmoid diverticula. No radiographic evidence of diverticulitis. Fecal material is seen in the rectosigmoid colon. Reading Location: [id number] CC: Dr. Marco A Marie MD; Dr. Maico Petty MD Passenger Conductor: Signed Normal [facility] Anion gap in Serum or Plasma Ordered By: Maico Petty on 06-29-2025 Anion gap [Moles/Vol] 13 mmol/L 5-15 [facility] BUN/creatinine ratioOrdered By: Maico Petty on 06-29-2025 Urea nitrogen/Creatinine [Mass ratio] 10.7 mg/mg 10-20 [facility] Bilirubin, totalOrdered By: Maico Petty on 06-29-2025 Bilirubin [Mass/Vol] 0.24 mg/dL 0.00-1.30 [facility] CBC-Complete Blood Cnt No Elizabeth erazoon 06-29-2025 Erythrocyte distribution width (RBC) [Ratio] 14.1 % Normal 11.6-14.6 [facility] Comment on above: Order Comment: Order Date: 06/09/25 Order Info: 0786-1 - CMP Order Info: [id number] - MG Order Info: 48096-9 - CRP Order Info: 3015-3 - TSH Performed By: #### L 501.6710, L501.5200, L501.9520, L7000.5300, L500.4050 #### [facility] [address] [place], [address] Hematocrit (Bld) [Volume fraction] 41.0 % Normal 37-47 [facility] Comment on above: Order Comment: Order Date: 06/09/25 Order Info: 07-1 - CMP Order Info: [id number] - MG Order Info: [id number] - CRP Order Info: 3016-3 - TSH Performed By: #### L 501.6710, L501.5200, L501.9520, L7000.5300, L500.4050 #### [facility] [address] [place], [address] Hemoglobin (Bld) [Mass/Vol] 13.6 g/dL Normal 12.0-15.0 [facility] Comment on above: Order Comment: Order Date: 06/09/25 Order Info: 0786-1 - CMP Order Info: [id number] - MG Order Info: [id number] - CRP Order Info: 3016-3 - TSH Performed By: #### L 501.6710, L501.5200, L501.9520, L7000.5300, L500.4050 #### [facility] [address] [place], [address] MCH (RBC) [Entitic mass] 29.7 pg Normal 27.0-32.0 [facility] Comment on above: Order Comment: Order Date: 06/09/25 Order Info: 0786-1 - CMP Order Info: [id number] - MG Order Info: [id number] - CRP Order Info: 3015-3 - TSH Performed By: #### L 501.6710, L501.5200, L501.9520, L7000.5300, L500.4050 #### [facility] [address] [place], [address] MCHC (RBC) [Mass/Vol] 33.2 g/dL Normal 32-36 [facility] Comment on above: Order Comment: Order Date: 06/09/25 Order Info: 86-1 - CMP Order Info: [id number] - MG Order Info: [id number] - CRP Order Info: 3015-3 - TSH Performed By: #### L 501.6710, L501.5200, L501.9520, L7000.5300, L500.4050 #### [facility] [address] [place], [address] MCV (RBC) [Entitic vol] 89.5 fL Normal 81-99 [facility] Comment on above: Order Comment: Order Date: 06/09/25 Order Info: 0786-1 - CMP Order Info: [id number] - MG Order Info: [id number] - CRP Order Info: 3015-3 - TSH Performed By: #### L 501.6710, L501.5200, L501.9520, L7000.5300, L500.4050 #### [facility] [address] [place], [address] Platelet mean volume (Bld) [Entitic vol] 11.2 fL Normal 6.2-12.0 [facility] Comment on above: Order Comment: Order Date: 06/09/25 Order Info: 0786-1 - CMP Order Info: [id number] - MG Order Info: [id number] - CRP Order Info: 3 - TSH Performed By: #### L 501.6710, L501.5200, L501.9520, L7000.5300, L500.4050 #### [facility] [address] [place], [address] Platelets (Bld) [#/Vol] 343 10*3/uL Normal 150-450 [facility] Comment on above: Order Comment: Order Date: 06/09/25 Order Info: 0786-1 - CMP Order Info: [id number] - MG Order Info: 93473-2 - CRP Order Info: 301-3 - TSH Performed By: #### L 501.6710, L501.5200, L501.9520, L7000.5300, L500.4050 #### [facility] [address] [place], [address] RBC (Bld) [#/Vol] 4.58 10*6/uL Normal 4.2-5.4 [facility] Comment on above: Order Comment: Order Date: 06/09/25 Order Info: 86-1 - CMP Order Info: [id number] - MG Order Info: [id number] - CRP Order Info: 3015-3 - TSH Performed By: #### L 501.6710, L501.5200, L501.9520, L7000.5300, L500.4050 #### [facility] [address] [place], [address] RDW SD 46.0 fl High 35.1-43.9 [facility] Comment on above: Order Comment: Order Date: 06/09/25 Order Info: 0786-1 - CMP Order Info: [id number] - MG Order Info: [id number] - CRP Order Info: 301-3 - TSH Performed By: #### L 501.6710, L501.5200, L501.9520, L7000.5300, L500.4050 #### [facility] [address] [place], [address] WBC (Bld) [#/Vol] 6.0 10*3/uL Normal 4.4-11.0 [facility] Comment on above: Order Comment: Order Date: 06/09/25 Order Info: 0786-1 - CMP Order Info: [id number] - MG Order Info: [id number] - CRP Order Info: 3 - TSH Performed By: #### L 501.6710, L501.5200, L501.9520, L7000.5300, L500.4050 #### [facility] [address] [place], [place], [id number] Carbon dioxide, total [Moles /volume] in Central venous bloodOrdered By: Maico Petty on 06-29-2025 CO2 [Moles/Vol] 22.7 mmol/L 21.0-32.0 [facility] Chloride assayOrdered By: Michael Petty on 06-29-2025 Chloride [Moles/Vol] 104 mmol/L 98-108 [facility] Comprehensive Metabolic Prof ilon 06-29-2025 Albumin [Mass/Vol] 4.5 g/dL Normal 3.5-5.0 [facility] Comment on above: Order Comment: Order Date: 06/09/25 Order Info: 07-1 - CMP Order Info: 46173-5 - MG Order Info: - CRP Order Info: 3016-01 - TSH Performed By: #### L 501.6710, L501.5200, L501.9520, L7000.5300, L500.4050 #### [facility] [address] [place], [place], [id number] Albumin/Globulin [Mass ratio] 1.8 {ratio} Normal 0.9-2.4 [facility] Comment on above: Order Comment: Order Date: 06/09/25 Order Info: 07-1 - CMP Order Info: 79108-5 - MG Order Info: 44673-5 - CRP Order Info: 3 - TSH Performed By: #### L 501.6710, L501.5200, L501.9520, L7000.5300, L500.4050 #### [facility] [address] [place], [address] ALK PHOS 47 U/L Normal 35-104 [facility] Comment on above: Order Comment: Order Date: 06/09/25 Order Info: 0786-1 - CMP Order Info: 52770-5 - MG Order Info: 57571-7 - CRP Order Info: 3015-3 - TSH Performed By: #### L 501.6710, L501.5200, L501.9520, L7000.5300, L500.4050 #### [facility] [address] [place], [address] ALT [Catalytic activity/Vol] 8 U/L Normal <=34 [facility] Comment on above: Order Comment: Order Date: 06/09/25 Order Info: 785-1 - CMP Order Info: 98148-6 - MG Order Info: 82009-5 - CRP Order Info: 3 - TSH Performed By: #### L 501.6710, L501.5200, L501.9520, L7000.5300, L500.4050 #### [facility] [address] [place], [address] AST [Catalytic activity/Vol] 13 U/L Normal <=31 [facility] Comment on above: Order Comment: Order Date: 06/09/25 Order Info: 785-1 - CMP Order Info: 60596-7 - MG Order Info: 75219-7 - CRP Order Info: 3015-3 - TSH Performed By: #### L 501.6710, L501.5200, L501.9520, L7000.5300, L500.4050 #### [facility] [address] [place], [address] Bilirubin [Mass/Vol] 0.24 mg/dL Normal 0.00-1.30 [facility] Comment on above: Order Comment: Order Date: 06/09/25 Order Info: 86-1 - CMP Order Info: 58039-8 - MG Order Info: 52742-9 - CRP Order Info: 301-3 - TSH Performed By: #### L 501.6710, L501.5200, L501.9520, L7000.5300, L500.4050 #### [facility] [address] [place], [address] BUN/CRE 10.7 RATIO Normal 10-20 [facility] Comment on above: Order Comment: Order Date: 06/09/25 Order Info: 0786-1 - CMP Order Info: 98738-8 - MG Order Info: 99229-6 - CRP Order Info: 3016-01 - TSH Performed By: #### L 501.6710, L501.5200, L501.9520, L7000.5300, L500.4050 #### [facility] [address] [place], [address] Calcium [Mass/Vol] 9.1 mg/dL Normal 7.6-11.0 [facility] Comment on above: Order Comment: Order Date: 06/09/25 Order Info: 0786-1 - CMP Order Info: 43255-6 - MG Order Info: 24104-4 - CRP Order Info: 3016-01 - TSH Performed By: #### L 501.6710, L501.5200, L501.9520, L7000.5300, L500.4050 #### [facility] [address] [place], [address] Chloride [Moles/Vol] 104 mmol/L Normal 98-108 [facility] Comment on above: Order Comment: Order Date: 06/09/25 Order Info: 0786-1 - CMP Order Info: 30869-9 - MG Order Info: 86533-7 - CRP Order Info: 3016-01 - TSH Performed By: #### L 501.6710, L501.5200, L501.9520, L7000.5300, L500.4050 #### [facility] [address] [place], [address] CO2 [Moles/Vol] 22.7 mmol/L Normal 21.0-32.0 [facility] Comment on above: Order Comment: Order Date: 06/09/25 Order Info: 86-1 - CMP Order Info: 83975-0 - MG Order Info: 75633-7 - CRP Order Info: 3015-3 - TSH Performed By: #### L 501.6710, L501.5200, L501.9520, L7000.5300, L500.4050 #### [facility] [address] [place], [address] Creatinine [Mass/Vol] 0.75 mg/dL Normal 0.70-1.20 [facility] Comment on above: Order Comment: Order Date: 06/09/25 Order Info: 785-1 - CMP Order Info: 46247-4 - MG Order Info: 39862-5 - CRP Order Info: 3 - TSH Performed By: #### L 501.6710, L501.5200, L501.9520, L7000.5300, L500.4050 #### [facility] [address] [place], [place], [id number] GAP 13 Normal 5-15 [facility] Comment on above: Order Comment: Order Date: 06/09/25 Order Info: 785-1 - CMP Order Info: 75276-7 - MG Order Info: 55429-2 - CRP Order Info: 3 - TSH Performed By: #### L 501.6710, L501.5200, L501.9520, L7000.5300, L500.4050 #### [facility] [address] [place], [place], [id number] GFR/1.73 sq M.predicted among non-blacks MDRD (S/P/Bld) [Vol rate/Area] 103 mL/min/{1.73_m2} Normal >60 [facility] Comment on above: Order Comment: Order Date: 06/09/25 Order Info: 86-1 - CMP Order Info: 47772-0 - MG Order Info: 98814-7 - CRP Order Info: 3016-01 - TSH Result Comment: mL/m in/1.73m2 CKD-EPI Creatinine Equation (2020) Performed By: #### L 501.6710, L501.5200, L501.9520, L7000.5300, L500.4050 #### [facility] [address] [place], [address] Globulin (S) [Mass/Vol] 2.5 g/dL Normal 2.2-4.2 [facility] Comment on above: Order Comment: Order Date: 06/09/25 Order Info: 0786-1 - CMP Order Info: 85667-2 - MG Order Info: 53117-3 - CRP Order Info: 3016-01 - TSH Performed By: #### L 501.6710, L501.5200, L501.9520, L7000.5300, L500.4050 #### [facility] [address] [place], [address] Glucose [Mass/Vol] 78 mg/dL Normal 70-99 [facility] Comment on above: Order Comment: Order Date: 06/09/25 Order Info: 86-1 - CMP Order Info: 70531-1 - MG Order Info: 85802-9 - CRP Order Info: 3016-01 - TSH Performed By: #### L 501.6710, L501.5200, L501.9520, L7000.5300, L500.4050 #### [facility] [address] [place], [address] Potassium [Moles/Vol] 4.3 mmol/L Normal 3.3-5.1 [facility] Comment on above: Order Comment: Order Date: 06/09/25 Order Info: 0786-1 - CMP Order Info: 05952-5 - MG Order Info: 57471-2 - CRP Order Info: 3 - TSH Performed By: #### L 501.6710, L501.5200, L501.9520, L7000.5300, L500.4050 #### [facility] [address] [place], [address] Sodium [Moles/Vol] 140 mmol/L Normal 133-145 [facility] Comment on above: Order Comment: Order Date: 06/09/25 Order Info: 0786-1 - CMP Order Info: 99891-9 - MG Order Info: 70308-2 - CRP Order Info: 301-3 - TSH Performed By: #### L 501.6710, L501.5200, L501.9520, L7000.5300, L500.4050 #### [facility] [address] [place], [place], [address] T PROT 6.9 g/dL Normal 5.9-8.4 [facility] Comment on above: Order Comment: Order Date: 06/09/25 Order Info: 0786-1 - CMP Order Info: 13447-3 - MG Order Info: 07451-7 - CRP Order Info: 3 - TSH Performed By: #### L 501.6710, L501.5200, L501.9520, L7000.5300, L500.4050 #### [facility] [address] [place], [place], [address] Urea nitrogen [Mass/Vol] 8 mg/dL Normal 4-19 [facility] Comment on above: Order Comment: Order Date: 06/09/25 Order Info: 0786-1 - CMP Order Info: 75223-9 - MG Order Info: 41273-2 - CRP Order Info: 3015-3 - TSH Performed By: #### L 501.6710, L501.5200, L501.9520, L7000.5300, L500.4050 #### [facility] [address] [place], [place], [address] Erythrocyte distribution wid th ratioOrdered By: Maico Petty on 06-29-2025 Erythrocyte distribution width (RBC) [Ratio] 14.1 % 11.6-14.6 [facility] Erythrocyte distribution wid th standard deviationOrdered By: Maico Petty on 06-29-2025 Erythrocyte distribution width (RBC) [Ratio] 46.0 fl High 35.1-43.9 [facility] Glomerular filtration rate ( GFR) estimation/1.73 sq m using serum, plasma, or whole bOrdered By: Maico Petty on 06-29-2025 GFR/1.73 sq M.predicted among non-blacks MDRD (S/P/Bld) [Vol rate/Area] 103 mL/min/{1.73_m2} >60 [facility] Comment on above: mL/min/1.73m2 CKD-EP I Creatinine Equation (2020) Hematocrit Auto (Bld) [Volum e fraction]Ordered By: Maico Petty on 06-29-2025 Hematocrit (Bld) [Volume fraction] 41.0 % 37-47 [facility] Hemoglobin measurementOrdere d By: Maico Petty on 06-29-2025 Hemoglobin (Bld) [Mass/Vol] 13.6 g/dL 12.0-15.0 [facility] - Chemistry and C hemistry - challengeOrdered By: Maico Petty on 06-29-2025 AST [Catalytic activity/Vol] 13 U/L <32 [facility] Lipaseon 06-29-2025 Lipase [Catalytic activity/Vol] 57 U/L Normal 13-75 [facility] Comment on above: Order Comment: Order Date: 06/09/25 Order Info: 0786-1 - CMP Order Info: 86640-4 - MG Order Info: 79964-9 - CRP Order Info: 3016-3 - TSH Result Comment: Greg anand note: LIPASE revised reference range effective 23. New Lipase methodology. Expected to produce lower values than the previous assay method. NEW Reference Range: 13 - 75 U/L Performed By: #### L 501.6710, L501.5200, L501.9520, L7000.5300, L500.4050 #### [facility] [place], [address] Lipase measurementOrdered By : Maico Petty on 06-29-2025 Lipase [Catalytic activity/Vol] 57 U/L 13-75 [facility] Comment on above: Please note:LIPASE r evised reference range effective 23. New Lipase methodology. Expected to produce lower values than the previous assay method. NEW Reference Range: 13 - 75 U/L MCV (mean corpuscular volume ) determinationOrdered By: Maico Petty on 06-29-2025 MCV (RBC) [Entitic vol] 89.5 fL 81-99 [facility] Mean corpuscular hemoglobin (MCH) determinationOrdered By: Maico Petty on 06-29-2025 MCH (RBC) [Entitic mass] 29.7 pg 27.0-32.0 [facility] Mean corpuscular hemoglobin concentration (MCHC) determinationOrdered By: Maico Petty on 06-29-2025 MCHC (RBC) [Mass/Vol] 33.2 g/dL 32-36 [facility] Mean platelet volume determi nationOrdered By: Maico Petty on 06-29-2025 Platelet mean volume (Bld) [Entitic vol] 11.2 fL 6.2-12.0 [facility] Platelet countOrdered By: Michael Petty on 06-29-2025 Platelets (Bld) [#/Vol] 343 10*3/uL 150-450 [facility] Potassium measurement (mass/ volume)Ordered By: Maico Petty on 06-29-2025 Potassium (Unsp spec) [Mass/Vol] 4.3 mmol/L 3.3-5.1 [facility] ,Serum,hCG Quali.on 06-29-2025 HCG, SERUM QUAL Negative Normal [facility] Comment on above: Order Comment: Order Date: 06/09/25 Order Info: 0786-1 - CMP Order Info: [id number] - MG Order Info: 11836-7 - CRP Order Info: 3016-3 - TSH Performed By: #### L 501.6710, L501.5200, L501.9520, L7000.5300, L500.4050 #### [facility] [address] [place], [address] RBC Auto (Bld) [#/Vol]Ordere d By: Maico Petty on 06-29-2025 RBC (Bld) [#/Vol] 4.58 10*6/uL 4.2-5.4 [facility] Serum beta-hCG test, qualita tiveOrdered By: Maico Petty on 06-29-2025 Beta HCG ( test) Ql Negative [facility] Serum creatinine measurement (mass/volume)Ordered By: Maico Petty on 06-29-2025 Creatinine [Mass/Vol] 0.75 mg/dL 0.70-1.20 [facility] Serum globulin measurementOr dered By: Maico Petty on 06-29-2025 Globulin (S) [Mass/Vol] 2.5 g/dL 2.2-4.2 [facility] Serum glucose measurement (m ass/volume)Ordered By: Maico Petty on 06-29-2025 Glucose [Mass/Vol] 78 mg/dL 70-99 [facility] Serum or plasma alanine sun otransferase (ALT) measurementOrdered By: Maico Petty on 06-29-2025 ALT [Catalytic activity/Vol] 8 U/L <35 [facility] Serum or plasma albumin tori urement (mass/volume)Ordered By: Maico Petty on 06-29-2025 Albumin [Mass/Vol] 4.5 g/dL 3.5-5.0 [facility] Serum or plasma albumin/glob ulin mass ratioOrdered By: Maico Petty on 06-29-2025 Albumin/Globulin [Mass ratio] 1.8 {ratio} 0.9-2.4 [facility] Serum or plasma alkaline eloy sphatase measurementOrdered By: Maico Petty on 06-29-2025 ALP [Catalytic activity/Vol] 47 U/L 35-104 [facility] Serum or plasma calcium tori urement (mass/volume)Ordered By: Maico Petty on 06-29-2025 Calcium [Mass/Vol] 9.1 mg/dL 7.6-11.0 [facility] Serum or plasma urea nitroge n measurement (mass/volume)Ordered By: Maico Petty on 06-29-2025 Urea nitrogen [Mass/Vol] 8 mg/dL 4-19 [facility] Sodium levelOrdered By: Maico Petty on 06-29-2025 Sodium [Moles/Vol] 140 mmol/L 133-145 [facility] Total proteinOrdered By: Shantell Petyt on 06-29-2025 Protein [Mass/Vol] 6.9 g/dL 5.9-8.4 [facility] White blood cell (WBC) count Ordered By: Maico Petty on 06-29-2025 WBC (Bld) [#/Vol] 6.0 10*3/uL 4.4-11.0 [facility] Lyme Screen W/Reflex WBon LYME SCREEN Ab Negative Normal Negative [facility] Comment on above: Order Comment: Order Date: 06/09/25 Order Info: 9586-9 - LYMS Result Comment: Lyme antibodies not detected. Reflex testing is not indicated. No laboratory evidence of infection with B. burgdorferi (Lyme disease). Negative results may occur in patients recently infected (less than or equal to 14 days) with B. burgdorferi. If recent infection is suspected, repeat testing on a new sample collected in 7 to 14 days is recommended. Performed at: [facility] [id number] Floor Person: Kashmir Levy PhD, Phone: [phone] Performed By: #### L 501.6710, L501.5200, L501.9520, L7000.5300, L500.4050 #### [facility] [place], [address] Anion gap in Serum or Plasma Ordered By: Francis Miranda on 06-09-2025 Anion gap [Moles/Vol] 12 mmol/L 5-15 [facility] BUN/creatinine ratioOrdered By: Francis Miranda on 06-09-2025 Urea nitrogen/Creatinine [Mass ratio] 19.9 mg/mg 10-20 [facility] Bilirubin, totalOrdered By: Francis Miranda on 06-09-2025 Bilirubin [Mass/Vol] mg/dL 0.00-1.30 [facility] CRPon 06-09-2025 C-REACTIVE PROT < 3.00 Normal 0.0-3.0 [facility] Comment on above: Order Comment: Order Date: 06/09/25 Order Info: 0786-1 - CMP Order Info: 77386-1 - MG Order Info: 33836-4 - CRP Order Info: 3016-3 - TSH Performed By: #### L 501.6710, L501.5200, L501.9520, L7000.5300, L500.4050 #### [facility] [address] [place], [address] Carbon dioxide, total [Moles /volume] in Central venous bloodOrdered By: Francis Miranda on 06-09-2025 CO2 [Moles/Vol] 23.0 mmol/L 21.0-32.0 [facility] Chloride assayOrdered By: Josafat Miranda on 06-09-2025 Chloride [Moles/Vol] 105 mmol/L 98-108 [facility] Comprehensive Metabolic Prof ilon 06-09-2025 Albumin [Mass/Vol] 4.4 g/dL Normal 3.5-5.0 [facility] Comment on above: Order Comment: Order Date: 06/09/25 Order Info: 0786-1 - CMP Order Info: 83095-2 - MG Order Info: 24441-2 - CRP Order Info: 3016-3 - TSH Performed By: #### L 501.6710, L501.5200, L501.9520, L7000.5300, L500.4050 #### [facility] [address] [place], [address] Albumin/Globulin [Mass ratio] 1.7 {ratio} Normal 0.9-2.4 [facility] Comment on above: Order Comment: Order Date: 06/09/25 Order Info: 0786-1 - CMP Order Info: 10439-9 - MG Order Info: 21447-4 - CRP Order Info: 3016-3 - TSH Performed By: #### L 501.6710, L501.5200, L501.9520, L7000.5300, L500.4050 #### [facility] [address] [place], [address] ALK PHOS 56 U/L Normal 35-104 [facility] Comment on above: Order Comment: Order Date: 06/09/25 Order Info: 0786-1 - CMP Order Info: 69933-5 - MG Order Info: 43123-0 - CRP Order Info: 3015-3 - TSH Performed By: #### L 501.6710, L501.5200, L501.9520, L7000.5300, L500.4050 #### [facility] [address] [place], [address] ALT [Catalytic activity/Vol] 8 U/L Normal <=34 [facility] Comment on above: Order Comment: Order Date: 06/09/25 Order Info: 0786-1 - CMP Order Info: 91295-2 - MG Order Info: 72961-9 - CRP Order Info: 3 - TSH Performed By: #### L 501.6710, L501.5200, L501.9520, L7000.5300, L500.4050 #### [facility] [address] [place], [address] AST [Catalytic activity/Vol] 11 U/L Normal <=31 [facility] Comment on above: Order Comment: Order Date: 06/09/25 Order Info: 0786-1 - CMP Order Info: 26416-4 - MG Order Info: 61657-8 - CRP Order Info: 3 - TSH Performed By: #### L 501.6710, L501.5200, L501.9520, L7000.5300, L500.4050 #### [facility] [address] [place], [address] BUN/CRE 19.9 RATIO Normal 10-20 [facility] Comment on above: Order Comment: Order Date: 06/09/25 Order Info: 0786-1 - CMP Order Info: 75173-5 - MG Order Info: 20605-7 - CRP Order Info: 3 - TSH Performed By: #### L 501.6710, L501.5200, L501.9520, L7000.5300, L500.4050 #### [facility] [address] [place], [address] Calcium [Mass/Vol] 8.9 mg/dL Normal 7.6-11.0 [facility] Comment on above: Order Comment: Order Date: 06/09/25 Order Info: 0786-1 - CMP Order Info: 41076-7 - MG Order Info: 09672-8 - CRP Order Info: 301-3 - TSH Performed By: #### L 501.6710, L501.5200, L501.9520, L7000.5300, L500.4050 #### [facility] [address] [place], [address] Chloride [Moles/Vol] 105 mmol/L Normal 98-108 [facility] Comment on above: Order Comment: Order Date: 06/09/25 Order Info: 86-1 - CMP Order Info: 08032-5 - MG Order Info: 95714-2 - CRP Order Info: 301-3 - TSH Performed By: #### L 501.6710, L501.5200, L501.9520, L7000.5300, L500.4050 #### [facility] [address] [place], [address] CO2 [Moles/Vol] 23.0 mmol/L Normal 21.0-32.0 [facility] Comment on above: Order Comment: Order Date: 06/09/25 Order Info: 86-1 - CMP Order Info: 27469-2 - MG Order Info: 99348-5 - CRP Order Info: 3015-3 - TSH Performed By: #### L 501.6710, L501.5200, L501.9520, L7000.5300, L500.4050 #### [facility] [address] [place], [address] Creatinine [Mass/Vol] 0.69 mg/dL Low 0.70-1.20 [facility] Comment on above: Order Comment: Order Date: 06/09/25 Order Info: 0786-1 - CMP Order Info: 35401-7 - MG Order Info: 54113-3 - CRP Order Info: 301-3 - TSH Performed By: #### L 501.6710, L501.5200, L501.9520, L7000.5300, L500.4050 #### [facility] [address] [facility] [place], [place], [id number] GAP 12 Normal 5-15 [facility] Comment on above: Order Comment: Order Date: 06/09/25 Order Info: 0786-1 - CMP Order Info: 76005-6 - MG Order Info: 76372-0 - CRP Order Info: 3 - TSH Performed By: #### L 501.6710, L501.5200, L501.9520, L7000.5300, L500.4050 #### [facility] [address] [facility] [place], [place], [id number] GFR/1.73 sq M.predicted among non-blacks MDRD (S/P/Bld) [Vol rate/Area] 112 mL/min/{1.73_m2} Normal >60 [facility] Comment on above: Order Comment: Order Date: 06/09/25 Order Info: 0786-1 - CMP Order Info: 45420-0 - MG Order Info: 10606-8 - CRP Order Info: 3015-3 - TSH Result Comment: mL/m in/1.73m2 CKD-EPI Creatinine Equation (2020) Performed By: #### L 501.6710, L501.5200, L501.9520, L7000.5300, L500.4050 #### [facility] [address] [facility] [place], [place], [id number] Globulin (S) [Mass/Vol] 2.6 g/dL Normal 2.2-4.2 [facility] Comment on above: Order Comment: Order Date: 06/09/25 Order Info: 0786-1 - CMP Order Info: 86325-4 - MG Order Info: 93173-5 - CRP Order Info: 301-3 - TSH Performed By: #### L 501.6710, L501.5200, L501.9520, L7000.5300, L500.4050 #### [facility] [address] [place], [address] Glucose [Mass/Vol] 81 mg/dL Normal 70-99 [facility] Comment on above: Order Comment: Order Date: 06/09/25 Order Info: 0786-1 - CMP Order Info: 15052-9 - MG Order Info: 36959-5 - CRP Order Info: 3016-3 - TSH Performed By: #### L 501.6710, L501.5200, L501.9520, L7000.5300, L500.4050 #### [facility] [address] [place], [address] Potassium [Moles/Vol] 4.6 mmol/L Normal 3.3-5.1 [facility] Comment on above: Order Comment: Order Date: 06/09/25 Order Info: 0786-1 - CMP Order Info: 81613-1 - MG Order Info: 81396-0 - CRP Order Info: 3016-3 - TSH Performed By: #### L 501.6710, L501.5200, L501.9520, L7000.5300, L500.4050 #### [facility] [address] [place], [address] Sodium [Moles/Vol] 139 mmol/L Normal 133-145 [facility] Comment on above: Order Comment: Order Date: 06/09/25 Order Info: 0786-1 - CMP Order Info: 55708-0 - MG Order Info: 17889-5 - CRP Order Info: 3016-3 - TSH Performed By: #### L 501.6710, L501.5200, L501.9520, L7000.5300, L500.4050 #### [facility] [address] [place], [address] T BILI < 0.15 Normal 0.00-1.30 [facility] Comment on above: Order Comment: Order Date: 06/09/25 Order Info: 0786-1 - CMP Order Info: 31075-4 - MG Order Info: 32211-5 - CRP Order Info: 3 - TSH Performed By: #### L 501.6710, L501.5200, L501.9520, L7000.5300, L500.4050 #### [facility] [address] [place], [address] T PROT 7.0 g/dL Normal 5.9-8.4 [facility] Comment on above: Order Comment: Order Date: 06/09/25 Order Info: 0786-1 - CMP Order Info: 48575-6 - MG Order Info: 98524-3 - CRP Order Info: 3 - TSH Performed By: #### L 501.6710, L501.5200, L501.9520, L7000.5300, L500.4050 #### [facility] [address] [place], [address] Urea nitrogen [Mass/Vol] 14 mg/dL Normal 4-19 [facility] Comment on above: Order Comment: Order Date: 06/09/25 Order Info: 0786-1 - CMP Order Info: 41050-3 - MG Order Info: 52394-3 - CRP Order Info: 3 - TSH Performed By: #### L 501.6710, L501.5200, L501.9520, L7000.5300, L500.4050 #### [facility] [address] [place], [address] Glomerular filtration rate ( GFR) estimation/1.73 sq m using serum, plasma, or whole bOrdered By: Francis Miranda on 06-09-2025 GFR/1.73 sq M.predicted among non-blacks MDRD (S/P/Bld) [Vol rate/Area] 112 mL/min/{1.73_m2} >60 [facility] Comment on above: mL/min/1.73m2 CKD-EP I Creatinine Equation (2020) Laboratory - Chemistry and C hemistry - challengeOrdered By: Francis Miranda on 06-09-2025 AST [Catalytic activity/Vol] 11 U/L <32 [facility] Magnesiumon 06-09-2025 Magnesium [Mass/Vol] 2.1 mg/dL Normal 1.5-2.2 [facility] Comment on above: Order Comment: Order Date: 06/09/25 Order Info: 0786-1 - CMP Order Info: [id number] - MG Order Info: 09642-0 - CRP Order Info: 3016-3 - TSH Performed By: #### L 501.6710, L501.5200, L501.9520, L7000.5300, L500.4050 #### [facility] [address] [place], [place], [phone] Magnesium measurement (mass/ volume)Ordered By: Francis Miranda on 06-09-2025 Magnesium (Unsp spec) [Mass/Vol] 2.1 mg/dL 1.5-2.2 [facility] Potassium measurement (mass/ volume)Ordered By: Francis Miranda on 06-09-2025 Potassium (Unsp spec) [Mass/Vol] 4.6 mmol/L 3.3-5.1 [facility] Serum creatinine measurement (mass/volume)Ordered By: Francis Miranda on 06-09-2025 Creatinine [Mass/Vol] 0.69 mg/dL Low 0.70-1.20 [facility] Serum globulin measurementOr dered By: Francis Miranda on 06-09-2025 Globulin (S) [Mass/Vol] 2.6 g/dL 2.2-4.2 [facility] Serum glucose measurement (m ass/volume)Ordered By: Francis Miranda on 06-09-2025 Glucose [Mass/Vol] 81 mg/dL 70-99 [facility] Serum or plasma C reactive p rotein measurement (mass/volume)Ordered By: Francis Miranda on 06-09-2025 CRP [Mass/Vol] mg/L 0.0-3.0 [facility] Serum or plasma alanine sun otransferase (ALT) measurementOrdered By: Francis Miranda on 06-09-2025 ALT [Catalytic activity/Vol] 8 U/L <35 [facility] Serum or plasma albumin tori urement (mass/volume)Ordered By: Francis Miranda on 06-09-2025 Albumin [Mass/Vol] 4.4 g/dL 3.5-5.0 [facility] Serum or plasma albumin/glob ulin mass ratioOrdered By: Francis Miranda on 06-09-2025 Albumin/Globulin [Mass ratio] 1.7 {ratio} 0.9-2.4 [facility] Serum or plasma alkaline eloy sphatase measurementOrdered By: Francis Miranda on 06-09-2025 ALP [Catalytic activity/Vol] 56 U/L 35-104 [facility] Serum or plasma calcium tori urement (mass/volume)Ordered By: Francis Miranda on 06-09-2025 Calcium [Mass/Vol] 8.9 mg/dL 7.6-11.0 [facility] Serum or plasma urea nitroge n measurement (mass/volume)Ordered By: Francis Miranda on 06-09-2025 Urea nitrogen [Mass/Vol] 14 mg/dL 4-19 [facility] Sodium levelOrdered By: Francis Miranda on 06-09-2025 Sodium [Moles/Vol] 139 mmol/L 133-145 [facility] TSH DL <= 0.005 mIU/L QnOrde red By: Francis Miranda on 06-09-2025 TSH Qn 4.160 uIU/mL 0.300-4.20 0 [facility] Thyroid Stim Hormone (TSH)on 06-09-2025 TSH 4.160 uIU/mL Normal 0.300-4.20 0 [facility] Comment on above: Order Comment: Order Date: 06/09/25 Order Info: [id number] - CMP Order Info: [id number] - MG Order Info: [id number] - CRP Order Info: [id number] - TSH Performed By: #### L 501.6710, L501.5200, L501.9520, L7000.5300, L500.4050 #### [facility] [address] [place], [address] Total proteinOrdered By: Ashely Miranda on 06-09-2025 Protein [Mass/Vol] 7.0 g/dL 5.9-8.4 [facility] .Auto Diffon 2025 Basophil, Absolute 0.1 10 3/mcL Normal 0.0-0.3 [facility] Comment on above: Performed By: #### A DIFF, PBNP, MDW, TROPHS, ANEU, CBC #### [address] [address] Basophils/100 WBC (Bld) 0.7 % Normal 0.0-2.5 [facility] Comment on above: Performed By: #### A DIFF, PBNP, MDW, TROPHS, ANEU, CBC #### [address] [address] Eosinophil, Absolute 0.0 10 3/mcL Normal 0.0-0.7 [facility] Comment on above: Performed By: #### A DIFF, PBNP, MDW, TROPHS, ANEU, CBC #### [address] [address] Eosinophils/100 WBC (Bld) 0.4 % Normal 0.0-6.0 [facility] Comment on above: Performed By: #### A DIFF, PBNP, MDW, TROPHS, ANEU, CBC #### [address] [address] Lymphocyte, Absolute 3.0 10 3/mcL Normal 0.9-4.3 [facility] Comment on above: Performed By: #### A DIFF, PBNP, MDW, TROPHS, ANEU, CBC #### [address] [address] Lymphocytes/100 WBC (Bld) 31.5 % Normal 20.0-40.0 [facility] Comment on above: Performed By: #### A DIFF, PBNP, MDW, TROPHS, ANEU, CBC #### [address] [address] Monocyte, Absolute 0.7 10 3/mcL Normal 0.1-1.4 [facility] Comment on above: Performed By: #### A DIFF, PBNP, MDW, TROPHS, ANEU, CBC #### [address] [address] Monocytes/100 WBC (Bld) 6.9 % Normal 2.0-13.0 [facility] Comment on above: Performed By: #### A DIFF, REYNA, BRENT, TROPHS, ANEU, CBC #### [place] [address] [place], [place] [address] Neutrophils/100 WBC (Bld) 60.5 % Normal 50.0-75.0 [facility] Comment on above: Performed By: #### A DIFF, REYNA, BRENT, TROPHS, ANEU, CBC #### [address] [address] .GFRon 2025 Estimated Glomerular Filtration Rate 89 ml/min/1.73sqm Normal [facility] Comment on above: Result Comment: Stages of Chronic Kidney Disease (CKD) Stage Description eGFR(ml/min/1.73 sq.m.) CKD 1 Normal kidney function or >=90 normal kindney function with possible kidney damage (ex. Proteinuria) CKD 2 Kidney damage with mild loss 60-89 of kidney function CKD 3a Mild to moderate loss of kidney 45-59 function CKD 3b Moderate to severe loss of 30-44 of kindey function CKD 4 Severe loss of kidney function 15-29 CKD 5 Kidney failure <15 Note: (go live 2024) the eGFR calculation was updated to the 2020 CKD-EPI creatinine equation without a race factor to calculate the eGFR results. Performed By: #### A DIFF, REYNA, BRNET, TROPHS, ANEU, CBC #### [address] [address] .MDWon 2025 Monocyte Distribution Width 19.94 Normal 0.00-20.00 [facility] Comment on above: Result Comment: For ED adult patients suspected of sepsis, MDW<=20.0 does not rule out sepsis or risk of sepsis Performed By: #### A DIFF, PBMICHELLE, BRENT, TROPHS, ANEU, CBC #### [address] [address] .NEUABSon 2025 Neutrophil, Absolute 5.7 10 3/mcL Normal 2.3-8.1 [facility] Comment on above: Performed By: #### A DIFF, PBNP, MDW, TROPHS, ANEU, CBC #### [address] [address] CBCon 2025 Erythrocyte distribution width (RBC) [Ratio] 14.9 % Normal 11.5-15.5 [facility] Comment on above: Performed By: #### A DIFF, PBNP, MDW, TROPHS, ANEU, CBC #### [address] [address] Hematocrit (Bld) [Volume fraction] 42.1 % Normal 34.0-46.0 [facility] Comment on above: Performed By: #### A DIFF, PBNP, MDW, TROPHS, ANEU, CBC #### [address] [address] Hgb 14.0 G/dL Normal 12.0-16.0 [facility] Comment on above: Performed By: #### A DIFF, PBNP, MDW, TROPHS, ANEU, CBC #### [address] [address] MCH (RBC) [Entitic mass] 29.3 pg Normal 27.0-33.0 [facility] Comment on above: Performed By: #### A DIFF, PBNP, MDW, TROPHS, ANEU, CBC #### [address] [address] MCHC 33.3 G/dL Normal 32.0-36.0 [facility] Comment on above: Performed By: #### A DIFF, PBNP, MDW, TROPHS, ANEU, CBC #### [address] [address] MCV (RBC) [Entitic vol] 88.0 fL Normal 80.0-99.0 [facility] Comment on above: Performed By: #### A DIFF, PBNP, MDW, TROPHS, ANEU, CBC #### [address] [address] Platelet 301 10 3/mcL Normal 150-450 [facility] Comment on above: Performed By: #### A DIFF, REYNA, BRENT, TROPHS, ANEU, CBC #### [address] [address] Platelet mean volume (Bld) [Entitic vol] 8.6 fL Normal 6.6-10.5 [facility] Comment on above: Performed By: #### A DIFF, REYNA, BRENT, TROPHS, ANEU, CBC #### [address] [address] RBC 4.79 10 6/mcL Normal 4.10-5.30 [facility] Comment on above: Performed By: #### A RUBY, REYNA, BRENT, TROPHS, ANEU, CBC #### [address] [address] WBC 9.5 10 3/mcL Normal 4.5-10.8 [facility] Comment on above: Performed By: #### A DIFF, REYNA, BRENT, TROPHS, ANEU, CBC #### [address] [address] CMPon 2025 Albumin Level 4.1 G/dL Normal 3.5-5.0 [facility] Comment on above: Performed By: #### C MP, GFR #### [address] [address] Albumin/Globulin [Mass ratio] 1.3 {ratio} Normal 1.1-2.5 [facility] Comment on above: Performed By: #### C MP, GFR #### [address] [address] ALP [Catalytic activity/Vol] 83 U/L Normal 40-135 [facility] Comment on above: Performed By: #### C MP, GFR #### [address] [address] ALT [Catalytic activity/Vol] 15 U/L Normal 14-59 [facility] Comment on above: Performed By: #### C MP, GFR #### [address] [address] AST [Catalytic activity/Vol] 9 U/L Low 10-40 [facility] Comment on above: Performed By: #### C MP, GFR #### [address] [address] Bili Total 0.3 mg/dL Normal 0.2-1.0 [facility] Comment on above: Result Comment: Use of this assay is not recommended for patients undergoing treatment with eltrombopag due to the potential for falsely elevated results. Performed By: #### C MP, GFR #### [place] [address] BUN/Creatinine Ratio 11 ratio Normal 7-27 [facility] Comment on above: Performed By: #### C MP, GFR #### [address] [address] Calcium [Mass/Vol] 8.8 mg/dL Normal 8.4-10.2 [facility] Comment on above: Performed By: #### C MP, GFR #### [address] [address] Chloride [Moles/Vol] 104 mmol/L Normal 98-107 [facility] Comment on above: Performed By: #### C MP, GFR #### [address] [address] CO2 [Moles/Vol] 26 mmol/L Normal 22-29 [facility] Comment on above: Performed By: #### C MP, GFR #### [address] [address] Creatinine [Mass/Vol] 0.84 mg/dL Normal 0.51-0.95 [facility] Comment on above: Performed By: #### C MP, GFR #### [address] [address] Electrolyte Balance 10.0 mEq/L Normal 4.0-15.0 [facility] Comment on above: Performed By: #### C MP, GFR #### [address] [address] Globulin 3.1 G/dL Normal 2.7-4.4 [facility] Comment on above: Performed By: #### C MP, GFR #### [address] [address] Glucose [Mass/Vol] 92 mg/dL Normal 70-105 [facility] Comment on above: Performed By: #### C MP, GFR #### [address] [address] Potassium [Moles/Vol] 3.6 mmol/L Normal 3.5-5.1 [facility] Comment on above: Performed By: #### C MP, GFR #### [address] [address] Sodium [Moles/Vol] 140 mmol/L Normal 136-145 [facility] Comment on above: Performed By: #### C MP, GFR #### [address] [address] Total Protein 7.2 G/dL Normal 6.4-8.2 [facility] Comment on above: Performed By: #### C MP, GFR #### [address] [address] Urea nitrogen [Mass/Vol] 9 mg/dL Normal 7-18 [facility] Comment on above: Performed By: #### C MP, GFR #### [address] [address] LABORATORYOrdered By: SYSTEM SYSTEM on 2025 Troponin I.cardiac DL <= 0.01 ng/mL [Mass/Vol] 5 ng/L Normal 0 - 51 ng/L AO ADM SS Comment on above: Interpretive Data: H igh Sensitive Troponin I Reference Ranges: Female: 0-51 ng/L Male: 0-76 ng/L Testing performed on [employer] using a homogeneous sandwich chemiluminescent immunoassay based on Arc[employer] technology. Albumin BCP dye [Mass/Vol] 4.1 G/dL Normal 3.5 - 5.0 G/dL AO ADM SS Albumin/Globulin [Mass ratio] 1.3 {ratio} Normal 1.1 - 2.5 ratio AO ADM SS ALP [Catalytic activity/Vol] 83 U/L Normal 40 - 135 U/L AO ADM SS ALT With P-5'-P [Catalytic activity/Vol] 15 U/L Normal 14 - 59 U/L AO ADM SS AST With P-5'-P [Catalytic activity/Vol] 9 U/L Low 10 - 40 U/L AO ADM SS Basophils (Bld) [#/Vol] 0.1 103/mcL Normal 0.0 - 0.3 10^3/mcL AO Workflow SS Basophils/100 WBC (Bld) 0.7 % Normal 0.0 - 2.5 % AO Workflow SS Bilirubin [Mass/Vol] 0.3 mg/dL Normal 0.2 - 1 .0 mg/dL AO ADM SS Comment on above: Interpretive Data: U se of this assay is not recommended for patients undergoing treatment with eltrombopag due to the potential for falsely elevated results. Calcium [Mass/Vol] 8.8 mg/dL Normal 8.4 - 10. 2 mg/dL AO ADM SS Chloride [Moles/Vol] 104 mmol/L Normal 98 - 10 7 mmol/L AO ADM SS CO2 [Moles/Vol] 26 mmol/L Normal 22 - 29 mmol/L AO ADM SS Creatinine [Mass/Vol] 0.84 mg/dL Normal 0.51 - 0.95 mg/dL AO ADM SS Electrolyte Balance 10.0 mEq/L Normal 4.0 - 15 .0 mEq/L AO ADM SS Eosinophil, Absolute 0.0 103/mcL Normal 0.0 - 0 .7 10^3/mcL AO Workflow SS Eosinophils/100 WBC (Bld) 0.4 % Normal 0.0 - 6.0 % AO Workflow SS Erythrocyte distribution width (RBC) [Ratio] 14.9 % Normal 11.5 - 15.5 % AO Workflow SS Estimated Glomerular Filtration Rate 89 ml/min/1.73sqm Invalid Interpretation Code AO Chemistry S Comment on above: Interpretive Data: Stages of Chronic Kidney Disease (CKD) Stage Description eGFR(ml/min/1.73 sq.m.) CKD 1 Normal kidney function or >=90 normal kindney function with possible kidney damage (ex. Proteinuria) CKD 2 Kidney damage with mild loss 60-89 of kidney function CKD 3a Mild to moderate loss of kidney 45-59 function CKD 3b Moderate to severe loss of 30-44 of kindey function CKD 4 Severe loss of kidney function 15-29 CKD 5 Kidney failure <15 Note: (go live 2024) the eGFR calculation was updated to the 2020 CKD-EPI creatinine equation without a race factor to calculate the eGFR results. Globulin 3.1 G/dL Normal 2.7 - 4.4 G/dL AO ADM SS Glucose [Mass/Vol] 92 mg/dL Normal 70 - 105 mg/dL AO ADM SS Hematocrit (Bld) [Volume fraction] 42.1 % Normal 34.0 - 46.0 % AO Workflow SS Hemoglobin (Bld) [Mass/Vol] 14.0 G/dL Normal 12.0 - 16.0 G/dL AO Workflow SS Lymphocytes (Bld) [#/Vol] 3.0 103/mcL Normal 0.9 - 4.3 10^3/mcL AO Workflow SS Lymphocytes/100 WBC (Bld) 31.5 % Normal 20.0 - 40.0 % AO Workflow SS MCH (RBC) [Entitic mass] 29.3 pg Normal 27.0 - 33.0 pg AO Workflow SS MCHC 33.3 G/dL Normal 32.0 - 36.0 G/dL AO Workflow SS MCV (RBC) [Entitic vol] 88.0 fL Normal 80.0 - 99.0 fL AO Workflow SS Monocyte distribution width Auto (Bld) [Entitic vol] 19.94 1 Normal 0.00 - 20.00 AO Workflow SS Comment on above: Result Comment: For ED adult patients suspected of sepsis, MDW<=20.0 does not rule out sepsis or risk of sepsis Monocytes (Bld) [#/Vol] 0.7 103/mcL Normal 0.1 - 1.4 10^3/mcL AO Workflow SS Monocytes/100 WBC (Bld) 6.9 % Normal 2.0 - 13.0 % AO Workflow SS Natriuretic peptide.B prohormone N-Terminal [Mass/Vol] 18 pg/mL Normal 0 - 125 pg/mL AO ADM SS Comment on above: Interpretive Data: N T-proBNP results of less than 300 pg/mL effectively rules out acute congestive heart failure with 99% negative predictive value. Neutrophils (Bld) [#/Vol] 5.7 103/mcL Normal 2.3 - 8.1 10^3/mcL AO Workflow SS Neutrophils/100 WBC (Bld) 60.5 % Normal 50.0 - 75.0 % AO Workflow SS Platelet mean volume (Bld) [Entitic vol] 8.6 fL Normal 6.6 - 10.5 fL AO Workflow SS Platelets (Bld) [#/Vol] 301 103/mcL Normal 150 - 450 10^3/mcL AO Workflow SS Potassium [Moles/Vol] 3.6 mmol/L Normal 3.5 - 5.1 mmol/L AO ADM SS Protein [Mass/Vol] 7.2 G/dL Normal 6.4 - 8.2 G/dL AO ADM SS RBC (Bld) [#/Vol] 4.79 106/mcL Normal 4.10 - 5.30 10^6/mcL AO Workflow SS Sodium [Moles/Vol] 140 mmol/L Normal 136 - 145 mmol/L AO ADM SS Troponin I.cardiac DL <= 0.01 ng/mL [Mass/Vol] 5 ng/L Normal 0 - 51 ng/L AO ADM SS Comment on above: Interpretive Data: H igh Sensitive Troponin I Reference Ranges: Female: 0-51 ng/L Male: 0-76 ng/L Testing performed on [employer] using a homogeneous sandwich chemiluminescent immunoassay based on Arc[employer] technology. Urea nitrogen [Mass/Vol] 9 mg/dL Normal 7 - 18 mg/dL AO ADM SS Urea nitrogen/Creatinine [Mass ratio] 11 ratio Normal 7 - 27 ratio AO ADM SS WBC (Bld) [#/Vol] 9.5 103/mcL Normal 4.5 - 10.8 10^3/mcL AO Workflow SS Lipase [Catalytic activity/Vol] 85 U/L High 16 - 77 U/L AO ADM SS LIPon 2025 Lipase Level 85 U/L High 16-77 [facility] Comment on above: Performed By: #### L IP #### [address] [address] PBNPon 2025 Natriuretic peptide B (Bld) [Mass/Vol] 18 pg/mL Normal 0-125 [facility] Comment on above: Result Comment: NT-p roBNP results of less than 300 pg/mL effectively rules out acute congestive heart failure with 99% negative predictive value. Performed By: #### A DIFF, PBNP, MDW, TROPHS, ANEU, CBC #### [address] [address] TROPHSon 2025 High Sensitivity Troponin I 5 ng/L Normal 0-51 [facility] Comment on above: Result Comment: High Sensitive Troponin I Reference Ranges: Female: 0-51 ng/L Male: 0-76 ng/L Testing performed on [employer] using a homogeneous sandwich chemiluminescent immunoassay based on Arc[employer] technology. Performed By: #### T ROP #### [address] [address] High Sensitivity Troponin I 5 ng/L Normal 0-51 [facility] Comment on above: Result Comment: High Sensitive Troponin I Reference Ranges: Female: 0-51 ng/L Male: 0-76 ng/L Testing performed on [employer] using a homogeneous sandwich chemiluminescent immunoassay based on Arc[employer] technology. Performed By: #### A DIFF, PBNP, MDW, TROPHS, ANEU, CBC #### [address] [address] XR CHEST 1 VIEWon 2025 XR CHEST 1 VIEW ORIGINAL EXAMINATION: ONE XRAY VIEW OF THE CHEST 2025 10:49 pm COMPARISON: Radiograph of the chest May 03, 2021 HISTORY: ORDERING SYSTEM PROVIDED HISTORY: Reason for Exam: chest pain FINDINGS: Cardiomediastinal silhouette is unchanged in size. Costophrenic angles are sharp. No radiographic pneumothorax. No focal consolidation. Left lower neck clips. IMPRESSION: No focal consolidation. Interpreted by: Rodo Villareal Preliminary Report By: Rodo Villareal Electronically signed By Rodo Villareal Dictated Date: 2025 11:01:38 PM Prelim Date: 2025 11:05:48 PM Sign Date: 2025 11:05:48 PM Ordering Provider: CARINE Jennings [facility] Brain W/WO Contraston 2024 Brain W/WO Contrast [facility] [address] [place] [id number] Brain W/WO Contrast MR#: [id number] Acct: [id number] Name: MALISSA ELLIOTT BRIANNA Rep #: [id number] : 1985 F 39 From: Gaurang Del Angel MD PCP: Dr. Marco A Marie MD Status: REG CLI Study: Brain W/WO Contrast Date of Exam: 03/23/25 Exam# [id number] Ordering Dr: Marco A Marie MD EXAM: BRAIN W/WO CONTRAST CLINICAL HISTORY: BLURRED VISION, DYSMETRIA, EVAL FOR MS COMPARISON: None. TECHNIQUE: Multiplanar, multisequence MR images of the brain were obtained without and with 15 cc Clariscan gadolinium contrast material. FINDINGS: No intracranial hemorrhage, mass, mass effect, midline shift or pathologic extra- axial fluid collection. No hydrocephalus. There is no significant white matter disease. No areas of restricted diffusion to suggest acute ischemia or infarction. No gradient signal blooming artifacts are identified. No cerebellar tonsillar ectopia. No sellar/suprasellar signal abnormalities. The ocular globes and intraorbital soft tissues are symmetrically unremarkable. There is minimal mucosal thickening in the floor of the right maxillary sinus. There are no suspicious enhancing lesions. MRI/Brain W/WO Contrast IMPRESSION: There is minimal mucosal thickening in the floor of the right maxillary sinus. There is no significant white matter disease, or suspicious enhancing lesion. Reading Location: [facility] CC: Dr. Marco A Marie MD Passenger Conductor: Signed Normal [facility] Brain/Head without Contrasto n 01-29-2025 Brain/Head without Contrast [facility] Services [address] [place] [id number] Brain/Head without Contrast MR#: [id number] Acct: [id number] Name: MALISSA ELLIOTT Rep #: [id number] : 1985 F 39 From: Cash Huizar i, MD PCP: Dr. Marco A Marie MD Status: REG CLI Study: Brain/Head without Contrast Date of Exam: 01/04 05/29 Exam# [id number] Ordering Dr: Marco A Marie MD PROCEDURE: BRAIN/HEAD WITHOUT CONTRAST 01/29/2025 REASON FOR EXAM: RECENT START ON ELIQUIS, 4 DAYS LATER BLUM, FATIGUE, HAS DYSMETRIA, TECHNIQUE: Head CT without intravenous contrast. Coronal and Sagittal reconstruction series were provided. One or more dose reduction techniques were used (e.g., Automated exposure control, adjustment of the mA and/or kV according to patient size, use of iterative reconstruction technique. RADIATION DOSE SUMMARY: DLP: 745.49 mGycm COMPARISON: None. FINDINGS: There is no acute intracranial hemorrhage, mass effect or midline shift. There are no abnormal extra-axial fluid collections present. The ventricles and sulci are within normal limits. The calvarium is intact. Visualized paranasal sinuses are unremarkable. The mastoids are well aerated. CT/Brain/Head without Contrast IMPRESSION: No acute intracranial hemorrhage, mass effect or midline shift. Reading Location: [id number] CC: Dr. Marco A Marie MD Passenger Conductor: Signed Normal [facility] No Panel Informationon 01-23 Tyree mcbride and steffany [facility] No Panel InformationOrdered By: Valeria Garcia on 01-23-2025 [facility] PANE Main 01-19-2025 Albumin [Mass/Vol] 4.3 g/dL Normal 3.2-5.2 [facility] Comment on above: Order Comment: [facility] has implemented the eGFR calculation approach that does not have a coefficient for race that conforms to the NKF-ASN Task Force Recommendations. Performed By: #### 4 6126 #### [facility] [address] [place], [place] [address] Chaz Rogers M.D. [id number] ALP [Catalytic activity/Vol] 59 U/L Normal 40-140 [facility] Comment on above: Order Comment: [facility] has implemented the eGFR calculation approach that does not have a coefficient for race that conforms to the NKF-ASN Task Force Recommendations. Performed By: #### 4 6126 #### [facility] [address] [place] [address] Chaz Rogers M.D. [id number] ALT [Catalytic activity/Vol] 5 U/L Normal 0-35 U/L [facility] Comment on above: Order Comment: [facility] has implemented the eGFR calculation approach that does not have a coefficient for race that conforms to the NKF-ASN Task Force Recommendations. Performed By: #### 4 6126 #### [place] [id number] Chaz Rogers M.D. [id number] Anion gap [Moles/Vol] 16 mmol/L Normal 10-20 [facility] Comment on above: Order Comment: [facility] has implemented the eGFR calculation approach that does not have a coefficient for race that conforms to the NKF-ASN Task Force Recommendations. Performed By: #### 4 6126 #### [place] [address] Chaz Rogers M.D. [id number] AST [Catalytic activity/Vol] 13 U/L Normal 0-35 U/L [facility] Comment on above: Order Comment: [facility] has implemented the eGFR calculation approach that does not have a coefficient for race that conforms to the NKF-ASN Task Force Recommendations. Performed By: #### 4 6126 #### [place] [address] Chaz Rogers M.D. [id number] Bilirubin [Mass/Vol] 0.2 mg/dL Normal 0.0-1.3 [facility] Comment on above: Order Comment: [facility] has implemented the eGFR calculation approach that does not have a coefficient for race that conforms to the NKF-ASN Task Force Recommendations. Performed By: #### 4 6126 #### SH [place] [address] Chaz Rogers M.D. [id number] Calcium [Mass/Vol] 8.8 mg/dL Normal 8.4-10.2 [facility] Comment on above: Order Comment: [facility] has implemented the eGFR calculation approach that does not have a coefficient for race that conforms to the NKF-ASN Task Force Recommendations. Performed By: #### 4 6126 #### [place] [address] Chaz Rogers M.D. [id number] Chloride [Moles/Vol] 105 mmol/L Normal 98-108 [facility] Comment on above: Order Comment: [facility] has implemented the eGFR calculation approach that does not have a coefficient for race that conforms to the NKF-ASN Task Force Recommendations. Performed By: #### 4 6126 #### [facility] [address] [place] [address] Chaz Rogers M.D. [id number] Creatinine [Mass/Vol] 0.77 mg/dL Normal 0.40-1.10 [facility] Comment on above: Order Comment: [facility] has implemented the eGFR calculation approach that does not have a coefficient for race that conforms to the NKF-ASN Task Force Recommendations. Performed By: #### 4 6126 #### [address] [address] Chaz Rogers M.D. [id number] EGFR 100 mL/min/1.73 m2 Normal >=60 [facility] Comment on above: Order Comment: [facility] has implemented the eGFR calculation approach that does not have a coefficient for race that conforms to the NKF-ASN Task Force Recommendations. Result Comment: Barbara mated GFR was calculated using the 2020 CKD-EPI creatinine equation. Performed By: #### 4 6126 #### [address] [address] Chaz Rogers M.D. [id number] Glucose [Mass/Vol] 85 mg/dL Normal 65-99 [facility] Comment on above: Order Comment: [facility] has implemented the eGFR calculation approach that does not have a coefficient for race that conforms to the NKF-ASN Task Force Recommendations. Performed By: #### 4 6126 #### LAB [address] [place] [address] Chaz Rogers M.D. [id number] HCO3 (Bld) [Moles/Vol] 20 mmol/L Low 21-32 [facility] Comment on above: Order Comment: [facility] has implemented the eGFR calculation approach that does not have a coefficient for race that conforms to the NKF-ASN Task Force Recommendations. Performed By: #### 4 6126 #### [facility] 91 [place] [address] Chaz Rogers M.D. [id number] Potassium [Moles/Vol] 4.3 mmol/L Normal 3.5-5.1 [facility] Comment on above: Order Comment: [facility] has implemented the eGFR calculation approach that does not have a coefficient for race that conforms to the NKF-ASN Task Force Recommendations. Performed By: #### [id number] #### SH LAB [address] [place] [address] Chaz Rogers M.D. [id number] Protein [Mass/Vol] 7.2 g/dL Normal 6.0-8.0 [facility] Comment on above: Order Comment: [facility] has implemented the eGFR calculation approach that does not have a coefficient for race that conforms to the NKF-ASN Task Force Recommendations. Performed By: #### 4 6126 #### [address] [address] Chaz Rogers M.D. [id number] Sodium [Moles/Vol] 137 mmol/L Normal 135-145 [facility] Comment on above: Order Comment: [facility] has implemented the eGFR calculation approach that does not have a coefficient for race that conforms to the NKF-ASN Task Force Recommendations. Performed By: #### 4 6126 #### [address] [address] Chaz Rogers M.D. [id number] Urea nitrogen [Mass/Vol] 8 mg/dL Normal 8-25 [facility] Comment on above: Order Comment: [facility] has implemented the eGFR calculation approach that does not have a coefficient for race that conforms to the NKF-ASN Task Force Recommendations. Performed By: #### 4 [id number] #### SH LAB [address] [place] [address] Chaz Rogers M.D. [id number] Urea nitrogen/Creatinine [Mass ratio] 10.4 mg/mg Normal 10.0-20.0 [facility] Comment on above: Order Comment: [facility] has implemented the eGFR calculation approach that does not have a coefficient for race that conforms to the NKF-ASN Task Force Recommendations. Performed By: #### 4 [id number] #### SH [address] [address] Chaz Rogers M.D. [id number] OP NOTEon 01-19-2025 OP NOTE Patient is a alvaron t 39-year-old female with chronically painful left foot plantar fasciitis. At this point she is tried and failed substantial conservative therapy including steroids NSAIDs padding splinting therapy shoe gear modification lifestyle modification all to no avail with daily pain. At this time based on imaging, she is electing undergo surgical invention for pain reduction and mobility improvement. Primary risks are continued pain, remaining fascial rupture and tearing, dehiscence pain tingling burning scarring infection DVT and . Despite this risk, she does wish to proceed. No guarantees were implied or made. Consent was signed document in EMR preoperatively. Open left foot plantar fasciotomy: Upon entering the preop area the patient was consented for anesthesia. She is brought to operating room her name account number and radiographs were verified. She was placed in the OR table in the usual supine position and given anesthesia via an LMA-General. Left ankle tourniquet was placed. Foot was prepped and draped in usual sterile fashion. The foot was then elevated and Esmarch was used to examine the ankle tourniquet set at 250 mmHg for total of 19 minutes taken down to the end of the case with excellent capillary fill time. Attention was directed to the medial fascial origin. At this point a 2.5 cm incision was made just to the distal edge of the calcaneal heel bone at the fascial origin. Sharp blunt dissection was used to curette the superficial and deep fascia. Hemostasis was achieved with electrocautery and Bovie cauterization. At this time under direct visualization with appropriate retraction, the medial one third of the plantar fascia was measured out and appreciated with substantial thickening scarring and micro tearing present. At this time, with the foot in the max dorsiflexed position with the assistance of the surgical resident, a 15 blade was used to sharply resect the medial one third of the plantar fascial origin creating the fasciotomy. This was taken full-thickness to healthy muscle belly below. Once this was resected appropriate gapping was intact and excellent. The site was irrigated copiously with normal saline. At this time the incision was closed with 1 large layer with a combination of 4-0 Prolene horizontal mattress technique and simple and erupted suture technique. Postop block was placed with 7 cc of 0.5% Marcaine plain and 1 cc of dexamethasone 4 mg/mL. Postop dressing placed with plan Adaptic 4 x 4 Kerlix Steffany bandage. Again tourniquet was taken down the end of the case with excellent capillary refill time. The patient tolerated the procedure and anesthesia well. Patient was then extubated and transferred from the OR to the PACU vital signs stable and vascular status intact all digits. Per anesthesia protocol for BP to cover the PACU should be transferred home. The procedure was discussed with her and her emphasizing respect dictations for healing and recovery. Protected weightbearing with Cam boot postoperatively, Eliquis for DVT prophylaxis and Percocet for pain. Follow-up postop week 1. AUTHENTICATED BY CM COBIAN JR., ON 01/19/2025 10:54:51 Normal [facility] H AND Salas 01-16-2025 H AND P HPI Chief Complaint Patient presents with Follow-up H&P Patient is a pleasant 39-year-old female who comes in today to sign her consent for continued left foot pain and left foot surgery. States that she is tired of her foot hurting she has done everything conservatively possible and at this point she is very ready for surgery. States that she is tired of this hurting tired of the pain directly to the medial component. Past Medical History: Diagnosis Date Anxiety Complication of anesthesia hypertension during surgery Depression Hypertension Juan J's syndrome TIA (transient ischemic attack) [facility] - 2006 Past Surgical History: Procedure Laterality Date BONE RESECTION, RIB HYSTERECTOMY OVARIAN CYST REMOVAL Social History Socioeconomic History Marital status: Tobacco Use Smoking status: Former Average packs/day: 0.3 packs/day for 17.0 years (4.3 ttl pk-yrs) Types: Cigarettes Start date: 1999 Smokeless tobacco: Never Vaping Use Vaping status: Never Used Substance and Sexual Activity Alcohol use: Not Currently Drug use: Never Review of Systems Physical Exam Patient is AOx3. Linear and appropriate humor and thought process. Derm: No erythema no open wounds no ulcers no rashes noted nodules. Neuro: Light touch is normal Babinski's is normal. Musculoskeletal: Muscle strength is 5 out of 5. Does have continued pain with direct palpation to the medial edge of the plantar fascial origin. Negative lateral calcaneal squeeze test. Ankle subtalar range of motion is full and pain-free without any clicking or catching. MRI reviewed again consistent with plantar fasciitis. Labs reviewed within normal limits as well as clearance reviewed. Some mention of possible Carver Parkinson's White though per imaging sounds like inconsistent with the diagnosis. She was advised to continue her verapamil nonetheless which she takes at nighttime. Impression/Plan Problem List Items Addressed This Visit Plantar fasciitis - Primary Relevant Medications apixaban (Eliquis) 2.5 mg Tab oxyCODONE-acetaminophen (PERCOCET) 5-325 mg per tablet Patient is a pleasant 39-year-old female with continued recalcitrant left foot plantar fasciitis and heel spur syndrome with pain. At this point she has failed many months of conservative therapy including NSAIDs padding steroids therapy sugar modification lifestyle modification all to no avail. At this time she is electing undergo surgical invention. Surgical plan is: Left foot open plantar fasciotomy. -This will be done at [facility] on Sunday. Primary risks are DVT dehiscence pain tingling burning scarring infection. Despite this risk, she does wish to proceed. No guarantees are implied or made. Consent was signed document the EMR. For DVT prophylaxis, did add oral Eliquis 2.5 mg twice daily for 21 days 42 tabs 0 refills. For postop pain control with a clean OARRS report did add oral Percocet 5/325 every 6 hours x 7 days 28 tabs 0 refills. N.p.o. Sunday at midnight. Follow-up postop week 1 protected weightbearing for 4 weeks. 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 AUTHENTICATED BY CM COBIAN JR., ON 01/16/2025 08:40:32 Normal [facility] Ambulatory CBC Auto Differentialon Basophils (Bld) [#/Vol] 0.07 10*3/uL [facility] Basophils/100 WBC (Bld) 0.8 % [facility] Eosinophils (Bld) [#/Vol] 0.04 10*3/uL [facility] Eosinophils/100 WBC (Bld) 0.5 % [facility] Erythrocyte distribution width (RBC) [Entitic vol] 13.7 % 11.6 - 14.8 % [facility] Hematocrit (Bld) [Volume fraction] 42 % 36.0 - 46.0 % [facility] Hemoglobin (Bld) [Mass/Vol] 13.9 g/dL 12.0 - 16.0 g/dL [facility] Immature granulocytes (Bld) [#/Vol] 0.02 10*3/uL [facility] Immature granulocytes/100 WBC (Bld) 0.2 % [facility] Comment on above: The IG parameter is the percentage of metamyelocytes, myelocytes and promyelocytes. An immature granulocyte count (IG) of 1% or more suggests the possibility of infection, an IG count of 3% is very likely related to an infection. Lymphocytes (Bld) [#/Vol] 3.17 10*3/uL [facility] Lymphocytes/100 WBC (Bld) 36.6 % [facility] MCH (RBC) [Entitic mass] 29.5 pg 26.0 - 34.0 pg [facility] MCHC (RBC) [Mass/Vol] 33.1 g/dL 31.0 - 37.0 g/dL [facility] MCV (RBC) [Entitic vol] 89.2 fL 80.0 - 100.0 fL [facility] Monocytes (Bld) [#/Vol] 0.54 10*3/uL [facility] Monocytes/100 WBC (Bld) 6.2 % [facility] Neutrophils (Bld) [#/Vol] 4.82 10*3/uL [facility] Neutrophils/100 WBC (Bld) 55.7 % [facility] Nucleated RBC (Bld) [#/Vol] 0 10*3/uL [facility] Nucleated RBC/100 WBC (Bld) [Ratio] 0 % [facility] Platelet mean volume (Bld) [Entitic vol] 10.6 fL 9.4 - 12.4 fL [facility] Platelets (Bld) [#/Vol] 327 10*3/uL [facility] RBC (Bld) [#/Vol] 4.71 10*6/uL [facility] WBC (Bld) [#/Vol] 8.66 10*3/uL [facility] CBC WITH AUTO DIFFERENTIALon 03-04-2025 AUTO NRBC 0.0 % Normal [facility] Comment on above: Performed By: #### L [id number] #### LAB [address] [address] Chaz Rogers M.D. [id number] AUTO NRBC ABS COUNT 0.00 K/mcL Normal 0.00-0.[address] [facility] Comment on above: Performed By: #### L [id number] #### LAB [address] [address] Chaz Rogers M.D. [id number] BASOPHILS ABSOLUTE COUNT 0.07 K/mcL Normal 0.00-0.30 [facility] Comment on above: Performed By: #### L [id number] #### LAB [address] [address] Chaz Rogers M.D. [id number] Basophils/100 WBC (Bld) 0.8 % [facility] Comment on above: Performed By: #### L [id number] #### LAB [address] [place] [address] Chaz Rogers M.D. [id number] Eosinophils (Bld) [#/Vol] 0.04 10*3/uL Normal 0.00-0.50 [facility] Comment on above: Performed By: #### L [id number] #### LAB [address] [place] [address] Chaz Rogers M.D. [id number] Eosinophils/100 WBC (Bld) 0.5 % [facility] Comment on above: Performed By: #### L [id number] #### LAB [address] [place] [address] Chaz Rogers M.D. [id number] Erythrocyte distribution width (RBC) [Ratio] 13.7 % Normal 11.6-14.8 [facility] Comment on above: Performed By: #### L [id number] #### LAB [address] [place] [address] Chaz Rogers M.D. [id number] Hematocrit (Bld) [Volume fraction] 42.0 % Normal 36.0-46.0 [facility] Comment on above: Performed By: #### L [id number] #### LAB [address] [address] Chaz Rogers M.D. [id number] Hemoglobin (Bld) [Mass/Vol] 13.9 g/dL Normal 12.0-16.0 [facility] Comment on above: Performed By: #### L [id number] #### LAB [address] [address] Chaz Rogers M.D. [id number] IG ABSOLUTE 0.02 K/mcL Normal 0.00-0.30 [facility] Comment on above: Performed By: #### L [id number] #### LAB [address] [address] Chaz Rogers M.D. [id number] IG PERCENT 0.20 % Normal [facility] Comment on above: Result Comment: The IG parameter is the percentage of metamyelocytes, myelocytes and promyelocytes. An immature granulocyte count (IG) of 1% or more suggests the possibility of infection, an IG count of 3% is very likely related to an infection. Performed By: #### L [id number] #### LAB [address] [address] Chaz Rogers M.D. [id number] Lymphocytes (Bld) [#/Vol] 3.17 10*3/uL Normal 0.90-4.00 [facility] Comment on above: Performed By: #### L [id number] #### LAB [address] [address] Chaz Rogers M.D. [id number] Lymphocytes/100 WBC (Bld) 36.6 % Normal [facility] Comment on above: Performed By: #### L [id number] #### LAB [address] [address] Chaz Rogers M.D. [id number] MCH (RBC) [Entitic mass] 29.5 pg Normal 26.0-34.0 [facility] Comment on above: Performed By: #### L [id number] #### LAB [address] [address] Chaz Rogers M.D. [id number] MCV (RBC) [Entitic vol] 89.2 fL Normal 80.0-100.0 [facility] Comment on above: Performed By: #### L [id number] #### LAB [address] [address] Chaz Rogers M.D. [id number] MEAN CORPUSCULAR HEMOGLOBIN CONC 33.1 g/dL Normal 31.0-37.0 [facility] Comment on above: Performed By: #### L [id number] #### LAB [address] [address] Chaz Rogers M.D. [id number] Monocytes (Bld) [#/Vol] 0.54 10*3/uL Normal 0.30-0.90 [facility] Comment on above: Performed By: #### L [id number] #### LAB [address] [address] Chaz Rogers M.D. [id number] Monocytes/100 WBC (Bld) 6.2 % Normal [facility] Comment on above: Performed By: #### L [id number] #### LAB [address] [address] Chaz Rogers M.D. [id number] NEUTROPHILS ABSOLUTE COUNT 4.82 K/mcL Normal 1.70-7.00 [facility] Comment on above: Performed By: #### L [id number] #### LAB [address] [address] Cahz Rogers M.D. [id number] Neutrophils/100 WBC (Bld) 55.7 % Normal [facility] Comment on above: Performed By: #### L [id number] #### LAB [address] [address] Chaz Rogers M.D. [id number] Platelet mean volume (Bld) [Entitic vol] 10.6 fL Normal 9.4-12.4 [facility] Comment on above: Performed By: #### L [id number] #### [facility] LAB [address] [place], [place] [address] Chaz Rogers M.D. [id number] Platelets (Bld) [#/Vol] 327 10*3/uL Normal 150-400 [facility] Comment on above: Performed By: #### L [id number] #### [facility] LAB [address] [place], [place] [address] Chaz Rogers M.D. [id number] RBC (Bld) [#/Vol] 4.71 10*6/uL Normal 4.00-5.[address] [facility] Comment on above: Performed By: #### L [id number] #### [facility] LAB [address] [id number] Chaz Rogers M.D. [id number] WBC (Bld) [#/Vol] 8.66 10*3/uL Normal 4.50-11.[address] [facility] Comment on above: Performed By: #### L [id number] #### LAB [address] [address] Chaz Rogers M.D. [id number] MR FOOT LEFT WITHOUT CONTRAS Ton 12-19-2024 MR FOOT LEFT WITHOUT CONTRAST EXAMINATION: MR FOOT LEFT WITHOUT CONTRAST 12/19/2024. HISTORY: ORDERING SYSTEM PROVIDED HISTORY: Chronic left foot plantar fasciitis, TECHNOLOGIST PROVIDED HISTORY: Illness/Other Reason for exam: Left plantar hindfoot pain since February 2024. Encounter Type: Subsequent/Follow-up Additional signs and symptoms: . ORDERING SYSTEM PROVIDED DIAGNOSIS CODES: M72.2 Plantar fasciitis M79.672 Left foot pain COMPARISON: Radiographs left foot 02/27/2024. TECHNIQUE: Multiplanar, multisequence MRI images of the left midfoot/hindfoot were obtained without contrast. CONTRAST: None. FINDINGS: LIGAMENTS: The anterior talofibular ligament appears within normal limits. The calcaneofibular ligament, posterior talofibular ligament, and distal tibiofibular ligaments appear within normal limits. The ligaments of the deltoid complex appear within normal limits. The Lisfranc ligament complex appears intact. TENDONS: No significant tendinopathy, tendon tear, or tenosynovitis is seen. SINUS TARSI AND TARSAL TUNNEL: No space-occupying mass is seen. The fat within the sinus tarsi is preserved. BONES AND JOINTS: The bone marrow signal intensity is age appropriate. No osteochondral defect of the tibiotalar joint is identified. PLANTAR FASCIA: There is a plantar calcaneal enthesophyte again seen. There is mild thickening of the central band the plantar fascia at its attachment to the calcaneus in this region and there is a small amount of soft tissue edema adjacent to the plantar fascia in this region. No tear of the plantar fascia is seen. IMPRESSION: There is evidence of mild plantar fasciitis involving the proximal central band of the plantar fascia at its attachment to the calcaneus with a small plantar calcaneal enthesophyte in this region. Workstation ID: [id number] Dictated by: LEO SHEETS on SunDec 22, 2024 2:18:10 PM EST Transcribed by: LEO SHEETS on SunDec 22, 2024 2:18:10 PM EST Finalized by: LEO SHEETS on SunDec 22, 2024 2:18:10 PM EST Normal [facility] Comment on above: Order Comment: Injur y/Trauma or Illness?:Illness/Other How long have you had these symptoms (acute/chronic)?:Chronic Reason for exam?:Left plantar hindfoot pain since February 2024. Type of Exam?:Subsequent/Follow-up Additional signs and symptoms?:. [employer] Office Visit Reporton 10-14-2024 [employer] Office Visit Report 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: No Is patient in pain?: No Allergies adhesive tape Allergy (Mild, Verified 10/14/24 15:19) Rash Iodinated Contrast Media Allergy (Unknown, Verified 10/14/24 15:19) Itching Medications ???Medication ???Instructions ???Recorded ???Confirmed ???Type amiloride 5 mg tablet 10 mg PO BID 02/16/22 10/14/24 History hydralazine 25 mg tablet 25 mg PO TID 02/16/22 10/14/24 History verapamil 180 mg 24 hr 180 mg PO DAILY #60 caps 04/10/22 10/14/24 Rx capsule,extended release clonidine HCl 0.1 mg tablet 0.1 mg PO BID hypertensive 05/22/22 10/14/24 History emergency escitalopram oxalate 10 mg tablet 10 mg PO QDAY 08/04/24 10/14/24 History (Lexapro) naproxen 500 mg tablet 500 mg PO BID PRN PRN Pain #30 tabs 09/23/24 10/14/24 Rx oxycodone-acetaminophen 5 mg-325 1 tab PO Q6H PRN pain 7 days #10 09/23/24 10/14/24 Rx mg tablet (Percocet) tabs Post menopausal: No Patient : No : No PFSH Medical History Wears contact lenses Depression Anxiety Easy bruising Back pain Injury of head and neck Former smoker History of echocardiogram Cardiology follow-up encounter Juan J's syndrome PSVT (paroxysmal supraventricular tachycardia) Hypertensive heart disease without HF (heart failure) Mixed hyperlipidemia Essential hypertension TIA (transient ischemic attack) Tachycardia Surgical History History of right oophorectomy History of resection of rib S/P tubal ligation History of hysterectomy Family History Other Cancer Diabetes Heart disease Hypertension Social History household members: spouse current occupational status: employed 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 Denies pain or concerns. She had thought her right ovary was removed with hysterectomy but confirmed that if was just right tube at that time. History 3 Elective abortions Hx Para 3 Spontaneous abortions Hx # Term Pregnancies Ectopic pregnancies Hx # Pregnancies Multiple births # of living children 3 Exam Const General: cooperative and no acute distress Orientation: oriented x3 GI Inspection: incision (well healed, nonerythematous) Palpation: soft and nontender Coding Level of Care Code No Charge Diagnoses Postop check Z09 Assessment and Plan Assessment and Plan (1) Postop check: Plan Reviewed benign pathology RTO annual exam, prn 10/14/24 1545 Date Maddie Gaytan NP WASTE MANAGEMENT ENGINEER-C Cosigner Signature: Date (if applicable) CC: Normal [facility] Esophagus Single Contraston 09-25-2024 Esophagus Single Contrast [facility] [address] [place] [id number] Esophagus Single Contrast MR#: [id number] Acct: [id number] Name: MALISSA ELLIOTT BRIANNA Rep #: [id number] : 1985 F 39 From: Winston ly MD PCP: Dr. Marco A Marie MD Status: REG CLI Study: Esophagus Single Contrast Date of Exam: Exam# [id number] Ordering Dr: Marco A Marie MD [id number] STUDY: X-RAY - ESOPHAGUS (BARIUM SWALLOW) WITH FLUOROSCOPY REASON FOR EXAM: Female, 39 years old. GLOBUS SENSATION TECHNIQUE: 62 fluoroscopic images of the esophagus were obtained following swallowing of barium. FLUOROSCOPY TIME (if supplied): (50 seconds) minutes/seconds. 6.9 mGy. COMPARISON: None. FINDINGS: There is no demonstrated esophageal foreign body. There is no demonstrated stricture or mucosal abnormality. Normal gastroesophageal junction, without a demonstrated hiatal hernia. The patient ingested a 12 mm tablet of barium without any difficulty. Normal visualized aortic arch and descending thoracic aorta. Normal visualized pulmonary parenchyma. Small amount of free air is seen beneath the right hemidiaphragm in keeping with recent pelvic laparoscopic surgery. Normal visualized osseous structures of the thorax. RAD/Esophagus Single Contrast IMPRESSION: Normal plain film x-ray examination (barium swallow) of the esophagus. Electronically Signed: Winston Lamb MD at 10:02 [facility] Reading Location ID and State: [address] [place] [address] , Service support , CC: Dr. Marco A Marie MD Passenger Conductor: Signed Normal [facility] Thyroidon 09-24-2024 [facility]roid [facility] [address] [place] [id number] Thyroid MR#: [id number] Acct: [id number] Name: MALISSA ELLIOTT BRIANNA Rep #: [id number] : 1985 F 39 From: Winston ly MD PCP: Dr. Marco A Marie MD Status: REG CLI Study: Thyroid Date of Exam: 09/24/24 Exam# [id number] Ordering Dr: Marco A Marie MD [id number] STUDY: THYROID ULTRASOUND REASON FOR EXAM: Female, 39 years old. THYROMEGALY TECHNIQUE: Ultrasound evaluation of the thyroid was performed with real-time and static king-scale imaging. COMPARISON: Comparison is made with prior study June 06, 2021. FINDINGS: RIGHT LOBE: The right lobe of the thyroid gland measures 4.4 cm x 1.9 cm x 1 cm. There is a homogeneous echotexture. There are no demonstrated solid, cystic or complex lesions. LEFT LOBE: The left lobe of the thyroid gland measures 4.2 cm x 1.4 cm x 1.1 cm. There is a homogeneous echotexture. There are no demonstrated solid, cystic or complex lesions. ISTHMUS: The isthmus measures 3 mm. The regional lymph nodes are normal. US/Thyroid IMPRESSION: Normal ultrasound examination of the thyroid. Electronically Signed: Winston Lamb MD at 12:32 EST Reading Location ID and State: [address] [place] [address] , Service support , CC: Dr. Marco A Marie MD Passenger Conductor: Signed Normal [facility] Cytology, Body Fluid / CSFon 09-23-2024 CYTOLOGY,BF/CSF SEE PATHOLOGY REPORT Normal [facility] Comment on above: Order Comment: Comme nts: collected in or right ovarian cyst fluid cytology Result Comment: Spec imen submitted to Anatomical Pathology Department for testing. Performed By: #### L 350.1000 #### [facility] [address] [place], [address] Discharge Instructionon 09-05 Discharge Instruction [facility] Medical Records Department [address] [place] [address] Instructions for Home/Discharge Instructions 09/23/24 1709 MR#: [id number] Acct: [id number] Name: ELLIOTTMALISSA BRIANNA Rep #: [id number] : 1985 39 From: Samara Canas MD PCP: Dr. Marco A Marie MD Status:REG [facility] Discharge Instructions Diet Discharge Diet: No restrictions Activity Discharge Activity: Return to Normal Activity, May Not Drive ( while taking narcotic pain meds, when pain free), May Shower and May Take a Tub Bath (in 7 days) May resume sexual activity in: 1 week Weight Bearing Status: Full weight bearing Dressing / Incision Call your doctor if your incision/area has: Continuous Slow Oozing, Sudden Increased Bleeding, Increased Pain/ Swelling, Increased Redness and Foul Smelling Discharge Call your doctor if you observe: Fever of 101 or Higher, Using more than 1 pad per hour, Shortness of breath, Chest pain and Uncontrolled pain Suture Line Care: Avoid Pulling/Pushing and Avoid Pinching/Bending Remove Dressing in: 1 week (if present) Cleanse incision/area with: Soap Water and Keep Dressing Clean Dry Follow Up Care When: Call to make an appointment with your doctor for a fu/incision check in 1-2 weeks. Test Results: Test results from this visit will be discussed in further detail at your follow-up appointment, if applicable. Discharge Plan Admission Attending Provider: Samara Canas Primary Care Provider: Marco A Marie Instructions Print Language: Bruneian Discharge Orders/Prescriptions Prescriptions: New oxycodone-acetaminophen [Percocet] 5-325 mg tablet 1 tab PO Q6H PRN (Reason: pain) 7 Days Qty: 10 0RF naproxen 500 mg tablet 500 mg PO BID PRN PRN (Reason: Pain) Qty: 30 1RF No Action amiloride 5 mg tablet 10 mg PO BID clonidine HCl 0.1 mg tablet 0.1 mg PO BID hydralazine 25 mg tablet 25 mg PO TID escitalopram oxalate [Lexapro] 10 mg tablet 10 mg PO QDAY verapamil 180 mg capsule,ext rel. pellets 24 hr 180 mg PO DAILY Qty: 60 11RF Referrals / Follow Up: Marco A Marei MD [Primary Care Provider] - Disposition Disposition (needs filled in before D/C Order can be placed): Home, Self Care 09/23/241711 Samara Canas MD CC: Dr. Marco A Marie MD Signed Normal [facility] MR/POSTOP.Clotilde 09-23-2024 MR/POSTOP.[facility] Medical Records Department [address] [address] Anesthesia Postop Eval I 09/23/24 172 MR#: [id number] Acct: [id number] Name: MALISSA ELLIOTT BRIANNA Rep #: [id number] : 1985 39 From: Preeti Cox PCP: Dr. Marco A Marie MD Status:REG [facility] Y Race: C Location: [place] [address] Anesthesia: Postop Eval I Current Vital Signs Temperature: 98.1 F Pulse Rate: 115 Blood Pressure: 144/80 Respiratory Rate: 20 Pulse Ox: 97 Assessment Airway patent: Yes Spontaneous unlabored respirations: Yes nausea: No Vomiting: No Anesthesia Complication: No Fluid Hydration Crystalloid volume administer (ml): 1,000 Total IV fluid infused: 1,000 Progress Note Anesthesia document: Postop Eval 1 completed: Yes 09/23/241722 Date Preeti Canales Signature: Date CC: Signed Normal [facility] MR/YAXKZGPH2yd 09-23-2024 MR/POSTOPAN2 [facility] Medical Records Department [address] [place] [address] Anesthesia Postop Eval II 09/23/24 1735 MR#: [id number] Acct: [id number] Name: MALISSA ELLIOTT BRIANNA Rep #: [id number] : 1985 39 From: Fidel Martinez MD PCP: Dr. Marco A Marie MD Status:[facility] Y Race: C Location: [place] [address] Anesthesia Postop Eval I Sum Postop Eval Completion status Anesthesia document: Postop Eval 1 completed: Yes Anesthesia Postop Eval I Summary Anesthesia Postop Eval I Summary: Anesthesia Postop Eval I: Assessment Summary Airway patent Yes 09/23/24 17:21 DEPENDENCY CASE MANAGER.CSIR Spontaneous unlabored Yes 09/23/24 17:21 DEPENDENCY CASE MANAGER.CSIR respirations Mental status nausea No 09/23/24 17:21 DEPENDENCY CASE MANAGER.CSIR Vomiting No 09/23/24 17:21 DEPENDENCY CASE MANAGER.CSIR Anesthesia Postop Eval I: Fluid Summary Crystalloid volume administer 1,000 09/23/24 17:21 DEPENDENCY CASE MANAGER.CSIR (ml) Colloids volume administered ( ml) Blood Product volume administered (ml) Total IV fluid infused 1,000 09/23/24 17:21 DEPENDENCY CASE MANAGER.CSIR Anesthesia Postop Eval I: Summary Notes Anesthesia Complication No 09/23/24 17:21 DEPENDENCY CASE MANAGER.CSIR Anesthesia Complication Comment: Post-operative progress note Anesthesia: Postop Eval II Evaluation Mental status: Awake Pain Level: 0 nausea: No Vomiting: No 09/23/24 1735 Date Fidel Canales Signature: Date CC: Signed Normal [facility] Operative Reporton 4 Operative Report [facility] Medical Records Department [address] [place] [address] Operative Report 09/23/24 1708 MR#: [id number] Acct: [id number] Name: MALISSA ELLIOTT BRIANNA Rep #: [id number] : 1985 39 From: Samara Canas MD PCP: Dr. Marco A Marie MD Status:[facility] Location: [facility] Problems Associated Problem List Diagnoses (1) History of right oophorectomy: (2) Chronic pelvic pain in female: (3) Dyspareunia: Operative Report (Standard) Operative Information Surgery/Procedure Performed: laparoscopic right oophorectomy and left salpingectomy Surgeon: Samara Canas Date of Procedure: 09/23/24 Procedure Start Time: 16:01 Procedure Stop Time: 17:11 Pre-Operative Diagnosis: ovarian cyst and pelvic pain Post-Operative Diagnosis: pelvic pain and right ovarian cystic tumor and left tube and cystic lesion Select all DRAINS/GRAFTS/IMPLANTS that apply: Drains (irby present during procedure removed after surgery completed) Drain details: irby Type of Anesthesia: General Estimated Blood Loss: 25 Specimen collected: Yes Description of specimen(s) removed: right ovary left tube and cystic lesion, right ovarian cyst fluid Description of surgery: Patient was placed under general anesthesia was prepped and draped in normal sterile fashion in the dorsolithotomy position. Irby catheter placed in the bladder and sponge stick placed in the vagina. Umbilicus was injected with lidocaine and 5 mm incision made and umbilicus elevated and Veress needle attempted to be inserted however could not be confirmed to be intra-abdominal after multiple attempts due to a high opening pressure and therefore the decision was made to enter via Simpson technique. Using that technique and then entered and into the abdomen confirming to be intra-abdominal and placing a Simpson trocar. 0 Vicryl's were placed as stay sutures in the fascia and patient was noted to have severely elevated blood pressures per anesthesia this was likely due to her underlying chronic condition. This was able to be controlled with IV hydralazine. The abdomen was inspected and no abnormalities or injuries noted. Decision was made to continue with the procedure. Blood pressures remained within normal limits. Right and left lower quadrant 5 mm ports were placed. Pelvis was visualized and contrary to the patient's previous history of thinking she had had her right ovary removed she was noted to have both of her ovaries and still have her left tube present. Her right ovary was significantly enlarged and noted to be abnormal with a multicystic appearance to it therefore the right ovary was removed using the LigaSure device there were adhesions noted which were taken down with LigaSure device. The left tube was noted to be cystic and abnormal which was also removed and a cystic area was also excised. A small nodule was taken off of the remaining communicating portion between the left and right ovary. The left ovary had a normal cystic appearance however using the monopolar scissors holes were drilled into these areas to confirm that there were no pathologic cysts and just clear serous fluid was drained from these areas confirming that this was a normal appearance to the ovary. The decision was made to leave the left ovary since it was away from the area of pain and appeared to be normal. All tissue removed in the bag and excellent hemostasis noted. Umbilical port closed after fascia closed with 0 Vicryl and port sites irrigated and closed with 4-0 Monocryl. Dermabond applied and pressure dressing applied to the umbilicus. Patient was awoken and taken recovery in stable condition Irby catheter removed. Surgical Findings: right enlarged cystic ovary filled with sebaceous hair andfluid suspect dermoid and left tube and cystic lesion Installation Manager robotics systems engineer: Yes Senior Office Assistant: Antonio Peña Tasks completed by multimedia production assistant: Opening closing, Trocar and Retracting Complications Complications: No Procedures Urinary/Genital 52xxx-59xxx: 80262 Laproscopic BS/O 09/24/24 0821 Cosigner Signature (if applicable): CC: Dr. Marco A Marie MD; Dr. Samara Canas MD Signed Normal [facility] ,Urineon 09-23-2024 Beta HCG ( test) Ql (U) Negative Normal [facility] Comment on above: Result Comment: Very dilute urine specimens, as indicated by a low specific gravity, may not contain exhibit display representative levels of hCG. If is still suspected, a first morning urine specimen should be collected 48 hours later and tested. Performed By: #### L 501.6710, L501.5200, L501.9520, L7000.5300, L500.4050 #### [facility] [address] [place], [place], [address] Special Stain Group IIon Special Stain Group II --------- Patient Age/Sex Location Account Attending Physician MALISSA ELLIOTT BRIANNA 39/ [facility] [id number] Dr. Samara Canas MD Specimen: [id number] Received: 09/23/24 Status: CADEN Ash Num: [id number] Spec Type: Fluid Subm Dr: Dr. Samara Canas MD HEADER OPERATION: Laparoscopic, ovarian cystectomy PRE-OP DIAGNOSIS: Right ovarian cyst fluid TISSUE SUBMITTED: Right ovary cyst fluid for cytology DIAGNOSIS CYTOLOGY Right ovarian cyst fluid for cytology (cytospin and cellblock): Paucicellular specimen, negative for malignant cells. See comment. FRANC. 09/25/2024 COMMENT Please also make reference to additional specimen [id number]. Clinical correlation and appropriate follow up are necessary. CYTOLOGY STUDY Slides are reviewed. CYTOLOGY GROSS Received is 7 ml of red-milky fluid labeled with the patient's name and and designated per the requisition as Right ovary cyst fluid. Submitted for cytology preparation including cell block. 09/24/2024 TC:5 CPT: 37807,19479 Signed (signature on file) Dr. Ottoniel Zamudio MD 09/25/24 1501 Normal [facility] Comment on above: Performed By: #### L 501.6710, L501.5200, L501.9520, L7000.5300, L500.4050 #### [facility] [address] [place], [place], [address] Surgery Specimen Level Cinthya 09-23-2024 Surgery Specimen Level IV Patient Age/Sex Location Account Attending Physician MALISSA ELLIOTT 39/F [facility] [id number] Dr. Samara Canas MD Specimen: [id number] Received: 09/24/24 Status: CADEN Rollins: [id number] Spec Type: OVARY Subm Dr: Dr. Samara Canas MD HEADER OPERATION: Laparoscopic, ovarian cystectomy, right oophorectomy PRE-OP DIAGNOSIS: Dyspareunia, chronic pelvic pain in female, left ovarian cyst TISSUE SUBMITTED: Right ovary and right ovarian cyst with left tubal MICROSCOPIC DIAGNOSIS Right ovary and left tube and cyst, right oophorectomy and left salpingectomy: Right ovary- Mature cystic teratoma (dermoid cyst). Left fallopian tube- no pathologic diagnosis. Paratubal cyst. SJ. 09/25/2024 MICROSCOPIC DESCRIPTION Slides are reviewed. GROSS DESCRIPTION Received in fixative is one container labeled with the patient's name and designated Right ovary, right ovarian cyst and left fallopian tube. The specimen consists of a cystic ovary measuring 5.5 x 7.0 x 2.5cm. Also present in the container is a cystic structure measuring 2.0cm in length and 0.6cm in diameter. Also present in the container is a portion of fallopian tube including fimbrial end measuring 3.6cm in length and 0.5cm in diameter. Serosal sectioning of the ovary reveals a cystic cavity filled with cheesy material and hairs. Grossly compatible with dermoid cyst. Cystic structure reveals it being filled with clear fluid. Grossly suggestive of tubal cyst. Serial section of the fallopian tube reveals unremarkable cut surfaces. Cloth Inspector sections are submitted in seven cassettes as follows: 1-4- ovary, 5 6- sections of the detached cyst, 7- fallopian tube. FA. 09/24/2024 TC:1 CPT:79036,04027 Patient Age/Sex Location Account Attending Physician MALISSA ELLIOTT 39/F [facility] [id number] Dr. Samara Canas MD Signed (signature on file) Dr. Ottoniel Zamudio MD 09/25/24 1502 Normal [facility] Comment on above: Performed By: #### L 501.6710, L501.5200, L501.9520, L7000.5300, L500.4050 #### [facility] [address] [place], [place], [address] Thyroglobulin w/Anti-TG ABon 09-23-2024 Anti-TG AB < 1.0 Normal 0.0-0.9 [facility] Comment on above: Order Comment: Order Date: 06/09/25 Order Info: [id number] - CMP Order Info: [id number] - MG Order Info: [id number] - CRP Order Info: 301-3 - TSH Result Comment: Thyr oglobulin Antibody measured by Jamie Migel Methodology It should be noted that the presence of thyroglobulin antibodies may not be pathogenic nor diagnostic, especially at very low levels. The assay telecommunications analyst has found that four percent of individuals without evidence of thyroid disease or autoimmunity will have positive TgAb levels up to 4 IU/mL. Performed By: #### L 501.6710, L501.5200, L501.9520, L7000.5300, L500.4050 #### [facility] [address] [place], [address] THYROGLOB QUANT 6.4 ng/mL Normal 1.5-38.5 [facility] Comment on above: Order Comment: Order Date: 06/09/25 Order Info: [id number] - CMP Order Info: [id number] - MG Order Info: [id number] - CRP Order Info: 3 - TSH Result Comment: Acco rding to the National Academy of Clinical Biochemistry, the reference interval for Thyroglobulin (TG) should be related to euthyroid patients and not for patients who underwent thyroidectomy. TG reference intervals for these patients depend on the residual mass of the thyroid tissue left after surgery. Establishing a post-operative baseline is recommended. The assay limit of quantitation is 0.1 ng/mL Thyroglobulin measured by Jamie Migel Immunometric Assay Performed By: #### L 501.6710, L501.5200, L501.9520, L7000.5300, L500.4050 #### [facility] [address] [place], [address] Thyroid Stim Immunoglobon THY STIM IMMUNO <0.10 Normal 0.00-0.55 [facility] Comment on above: Order Comment: Order Date: 06/09/25 Order Info: 0786-1 - CMP Order Info: [id number] - MG Order Info: [id number] - CRP Order Info: 3 - TSH Performed By: #### L 501.6710, L501.5200, L501.9520, L7000.5300, L500.4050 #### [facility] [address] [place], [address] 12 Lead EKGon 09-22-2024 12 Lead EKG [facility] Cardiovascular Services [address] [place] [address] 12 Lead EKG 09/22/24 0732 MR#: [id number] Acct: [id number] Name: MALISSA ELLIOTT BRIANNA Rep #: [id number] : 1985 39 From: Joshua Covarrubias MD Attending Dr: Dr. Samaar Canas MD Status: PRE [facility] Ordering Dr: Fidel Martinez MD Date: 09/22/24 Location: [facility] Sex: F C Admitted: Test Reason : PREOP Blood Pressure : */* mmHG Vent. Rate : 71 BPM Atrial Rate : 71 BPM P-R Int : 122 ms QRS Dur : 72 ms QT Int : 430 ms P-R-T Axes : 78 26 42 degrees QTcB Int : 467 ms Sinus rhythm with Fusion complexes Otherwise normal ECG Confirmed by CLAUDE CONNOLLY, JOSHUA ([id number]), news videotape editor MERY MOYA ([id number]) on 09/22/2024 9:59:39 AM Referred By: Samara Canas Confirmed By: JOSHUA COVARRUBIAS MD 09/22/24 0959 Date Joshua Covarrubias MD CC: Dr. Fidel Martinez MD; Dr. Marco A Marie MD; Dr. Samara Canas MD Signed Normal [facility] Basic Metabolic Profile (BMP )on 09-17-2024 BUN/CRE 9.8 RATIO Low 10-20 [facility] Comment on above: Performed By: #### L 501.6710, L501.5200, L501.9520, L7000.5300, L500.4050 #### [facility] [address] [place], [address] CA,Total 8.8 mg/dL Normal 8.5-10.1 [facility] Comment on above: Performed By: #### L 501.6710, L501.5200, L501.9520, L7000.5300, L500.4050 #### [facility] [address] [place], [address] Chloride [Moles/Vol] 108 mmol/L High 98-107 [facility] Comment on above: Performed By: #### L 501.6710, L501.5200, L501.9520, L7000.5300, L500.4050 #### [facility] [address] [place], [address] CO2 [Moles/Vol] 23.0 mmol/L Normal 21.0-32.0 [facility] Comment on above: Performed By: #### L 501.6710, L501.5200, L501.9520, L7000.5300, L500.4050 #### [facility] [address] [place], [address] Creatinine [Mass/Vol] 0.82 mg/dL Normal 0.55-1.02 [facility] Comment on above: Result Comment: The validity of the calculated GFR GFRAA in patients over 70 years has not been determined. Clinical correlation is essential. Performed By: #### L 501.6710, L501.5200, L501.9520, L7000.5300, L500.4050 #### [facility] [address] [place], [address] EST GFR - AA 100 mL/min Normal >60 [facility] Comment on above: Result Comment: Afri can Nigerien GFR Calc Performed By: #### L 501.6710, L501.5200, L501.9520, L7000.5300, L500.4050 #### [facility] [address] [place], [address] GAP 6 Normal 5-15 [facility] Comment on above: Performed By: #### L 501.6710, L501.5200, L501.9520, L7000.5300, L500.4050 #### [facility] [address] [place], [address] GFR/1.73 sq M.predicted among non-blacks MDRD (S/P/Bld) [Vol rate/Area] 83 mL/min/{1.73_m2} Normal >60 [facility] Comment on above: Result Comment: Non- GFR Calc Performed By: #### L 501.6710, L501.5200, L501.9520, L7000.5300, L500.4050 #### [facility] [address] [place], [address] Glucose [Mass/Vol] 88 mg/dL Normal 74-106 [facility] Comment on above: Performed By: #### L 501.6710, L501.5200, L501.9520, L7000.5300, L500.4050 #### [facility] [address] [place], [address] Potassium [Moles/Vol] 3.7 mmol/L Normal 3.5-5.1 [facility] Comment on above: Performed By: #### L 501.6710, L501.5200, L501.9520, L7000.5300, L500.4050 #### [facility] [address] [place], [address] Sodium [Moles/Vol] 136 mmol/L Normal 136-145 [facility] Comment on above: Performed By: #### L 501.6710, L501.5200, L501.9520, L7000.5300, L500.4050 #### [facility] [address] [place], [address] Urea nitrogen [Mass/Vol] 8 mg/dL Normal 7-18 [facility] Comment on above: Performed By: #### L 501.6710, L501.5200, L501.9520, L7000.5300, L500.4050 #### [facility] [address] [place], [address] CBC-Complete Blood Cnt No Di ffon 09-17-2024 Erythrocyte distribution width (RBC) [Ratio] 13.6 % Normal 11.6-14.6 [facility] Comment on above: Performed By: #### B TSPAT, L100.0500 #### [facility] [address] [place], [address] Hematocrit (Bld) [Volume fraction] 44.0 % Normal 37-47 [facility] Comment on above: Performed By: #### B TSPAT, L100.0500 #### [facility] [address] [place], [address] Hemoglobin (Bld) [Mass/Vol] 14.3 g/dL Normal 12.0-15.0 [facility] Comment on above: Performed By: #### B TSPAT, L100.0500 #### [facility] [address] [place], [address] MCH (RBC) [Entitic mass] 29.5 pg Normal 27.0-32.0 [facility] Comment on above: Performed By: #### B TSPAT, L100.0500 #### [facility] [address] [place], [address] MCHC (RBC) [Mass/Vol] 32.5 g/dL Normal 32-36 [facility] Comment on above: Performed By: #### B TSPAT, L100.0500 #### [facility] [address] [place], [address] MCV (RBC) [Entitic vol] 90.7 fL Normal 81-99 [facility] Comment on above: Performed By: #### B TSPAT, L100.0500 #### [facility] [address] [place], [address] Platelet mean volume (Bld) [Entitic vol] 10.9 fL Normal 6.2-12.0 [facility] Comment on above: Performed By: #### B TSPAT, L100.0500 #### [facility] [address] [place], [address] Platelets (Bld) [#/Vol] 349 10*3/uL Normal 150-450 [facility] Comment on above: Performed By: #### Rica TSPAT, L100.0500 #### [facility] [address] [place], [address] RBC (Bld) [#/Vol] 4.85 10*6/uL Normal 4.2-5.4 [facility] Comment on above: Performed By: #### Rica TSPAT, L100.0500 #### [facility] [address] [place], [address] RDW SD 45.7 fl High 35.1-43.9 [facility] Comment on above: Performed By: #### Rica TSPAT, L100.0500 #### [facility] [address] [place], [address] WBC (Bld) [#/Vol] 6.7 10*3/uL Normal 4.4-11.0 [facility] Comment on above: Performed By: #### B TSPAT, L100.0500 #### [facility] [address] [place], [address] Hemoglobin A1con 09-17-2024 HbA1c (Bld) [Mass fraction] 5.0 % Normal 3.8-5.6 [facility] Comment on above: Order Comment: Order Date: 06/09/25 Order Info: 0786-1 - CMP Order Info: [id number] - MG Order Info: [id number] - CRP Order Info: 3016-3 - TSH Result Comment: Norm al < 5.7 % Prediabetic 5.7 - 6.4 % Diabetic >or= 6.5 % Please note range changes. Performed By: #### L 501.6710, L501.5200, L501.9520, L7000.5300, L500.4050 #### [facility] [address] [place], [address] Liver Profileon 09-17-2024 Albumin [Mass/Vol] 4.0 g/dL Normal 3.2-5.0 [facility] Comment on above: Performed By: #### L 501.6710, L501.5200, L501.9520, L7000.5300, L500.4050 #### [facility] [address] [place], [address] ALK P 58 U/L Normal 45-117 [facility] Comment on above: Performed By: #### L 501.6710, L501.5200, L501.9520, L7000.5300, L500.4050 #### [facility] [address] [place], [address] ALT [Catalytic activity/Vol] 16 U/L Normal 13-56 [facility] Comment on above: Performed By: #### L 501.6710, L501.5200, L501.9520, L7000.5300, L500.4050 #### [facility] [address] [place], [address] AST [Catalytic activity/Vol] 7 U/L Low 15-37 [facility] Comment on above: Performed By: #### L 501.6710, L501.5200, L501.9520, L7000.5300, L500.4050 #### [facility] [address] [place], [address] Bilirubin [Mass/Vol] 0.30 mg/dL Normal 0.20-1.00 [facility] Comment on above: Result Comment: For patients on eltrombopag therapy, use of Dimension [place] TBIL is not recommended. Performed By: #### L 501.6710, L501.5200, L501.9520, L7000.5300, L500.4050 #### [facility] [address] [place], [address] Bilirubin.direct [Mass/Vol] 0.10 mg/dL Normal 0.00-0.30 [facility] Comment on above: Performed By: #### L 501.6710, L501.5200, L501.9520, L7000.5300, L500.4050 #### [facility] [address] [place], [address] Globulin (S) [Mass/Vol] 3.5 g/dL Normal 2.2-4.2 [facility] Comment on above: Performed By: #### L 501.6710, L501.5200, L501.9520, L7000.5300, L500.4050 #### [facility] [address] [place], [address] T PROT 7.5 g/dL Normal 6.4-8.2 [facility] Comment on above: Performed By: #### L 501.6710, L501.5200, L501.9520, L7000.5300, L500.4050 #### [facility] [address] [place], [address] Partial Thromboplast Timeon 09-17-2024 aPTT Coag (Bld) [Time] 25.8 s Normal 24.1-36.2 [facility] Comment on above: Performed By: #### L 500.2500, L300.4310, L300.3900, L500.3400 #### [facility] [address] [place], [address] Prothrombin Time w/INRon INR Coag (PPP) [Relative time] 0.9 {INR} Normal [facility] Comment on above: Performed By: #### L 500.2500, L300.4310, L300.3900, L500.3400 #### [facility] [address] [place], [address] PT Coag (PPP) [Time] 12.1 s Normal 11.7-14.9 [facility] Comment on above: Performed By: #### L 500.2500, L300.4310, L300.3900, L500.3400 #### [facility] [address] [place], [address] T4 Free Directon 09-17-2024 T4 FREE DIRECT 1.01 ng/dL Normal 0.76-1.46 [facility] Comment on above: Order Comment: Order Date: 06/09/25 Order Info: 0786-1 - CMP Order Info: [id number] - MG Order Info: [id number] - CRP Order Info: 3016-3 - TSH Performed By: #### L 501.6710, L501.5200, L501.9520, L7000.5300, L500.4050 #### [facility] [address] [place], [address] Thyroid Stim Hormone (TSH)on 09-17-2024 TSH 2.280 uIU/mL Normal 0.358-3.74 0 [facility] Comment on above: Order Comment: Order Date: 06/09/25 Order Info: [id number] - CMP Order Info: [id number] - MG Order Info: 11749-4 - CRP Order Info: 3016-3 - TSH Performed By: #### L 501.6710, L501.5200, L501.9520, L7000.5300, L500.4050 #### [facility] [address] [place], [address] Type AND Screen - PAT ONLYon 09-17-2024 A1 CELL Not performed Normal [facility] Comment on above: Order Comment: Surge ry Date: 09/23/24 Reason for Laboratory Test PREOP [id number] No N N S LEFT LAP OVARIAN CYSTECTOMY Result Comment: This specimen has been REJECTED due to Laboratory criteria: MisLabelled- INCORRECT. LAB STAFF has been notified of need of recollection. 09/17/24 183 Performed By: #### B TSPAT, L100.0500 #### [facility] [address] [place], [address] Ab SCREEN GEL Not performed Normal [facility] Comment on above: Order Comment: Surge ry Date: 09/23/24 Reason for Laboratory Test PREOP [id number] No N N S LEFT LAP OVARIAN CYSTECTOMY Result Comment: This specimen has been REJECTED due to Laboratory criteria: MisLabelled- INCORRECT. LAB STAFF has been notified of need of recollection. 09/17/24 183 Performed By: #### B TSPAT, L100.0500 #### [facility] [address] [place], [address] ABO and Rh group Nom (Bld) Test Not Performed Normal [facility] Comment on above: Order Comment: Surge ry Date: 09/23/24 Reason for Laboratory Test PREOP [id number] No N N S LEFT LAP OVARIAN CYSTECTOMY Result Comment: This specimen has been REJECTED due to Laboratory criteria: MisLabelled- INCORRECT. LAB STAFF has been notified of need of recollection. 09/17/24 183 Performed By: #### B TSPAT, L100.0500 #### [facility] [address] [place], [address] ANTI A Not performed Normal [facility] Comment on above: Order Comment: Surge ry Date: 09/23/24 Reason for Laboratory Test PREOP 20240922 No N N S LEFT LAP OVARIAN CYSTECTOMY Result Comment: This specimen has been REJECTED due to Laboratory criteria: MisLabelled- INCORRECT. LAB STAFF has been notified of need of recollection. 09/17/24 183 Performed By: #### B TSPAT, L100.0500 #### [facility] [address] [place], [address] ANTI B Not performed Normal [facility] Comment on above: Order Comment: Surge ry Date: 09/23/24 Reason for Laboratory Test PREOP 20240922 No N N S LEFT LAP OVARIAN CYSTECTOMY Result Comment: This specimen has been REJECTED due to Laboratory criteria: MisLabelled- INCORRECT. LAB STAFF has been notified of need of recollection. 09/17/24 183 Performed By: #### B TSPAT, L100.0500 #### [facility] [address] [place], [address] ANTI D Not performed Normal [facility] Comment on above: Order Comment: Surge ry Date: 09/23/24 Reason for Laboratory Test PREOP [id number] No N N S LEFT LAP OVARIAN CYSTECTOMY Result Comment: This specimen has been REJECTED due to Laboratory criteria: MisLabelled- INCORRECT. LAB STAFF has been notified of need of recollection. 09/17/24 183 Performed By: #### B TSPAT, L100.0500 #### [facility] [address] [place], [address] B CELLS Not performed Normal [facility] Comment on above: Order Comment: Surge ry Date: 09/23/24 Reason for Laboratory Test PREOP [id number] No N N S LEFT LAP OVARIAN CYSTECTOMY Result Comment: This specimen has been REJECTED due to Laboratory criteria: MisLabelled- INCORRECT. LAB STAFF has been notified of need of recollection. 09/17/24 183 Performed By: #### B TSPAT, L100.0500 #### [facility] [address] [place], [address] BLD TYPE RECHEK Not performed Normal [facility] Comment on above: Order Comment: Surge ry Date: 09/23/24 Reason for Laboratory Test PREOP [id number] No N N S LEFT LAP OVARIAN CYSTECTOMY Result Comment: This specimen has been REJECTED due to Laboratory criteria: MisLabelled- INCORRECT. LAB STAFF has been notified of need of recollection. 09/17/24 1838 Performed By: #### B TSPAT, L100.0500 #### [facility] [address] [place], [address] [employer] [employer] Office Visit Reporton 09-10-2024 [facility] [employer] [facility] Office Visit Report [facility] [address], [address] [place] [address] OFFICE VISIT Date of Service: 09/10/24 MR#: [id number] Acct: [id number] Name: MALISSA ELLIOTT Rep #: [id number] : 1985 Provider: Dr. Samara carlton MD Age/Sex: 39/F Location: [facility] Status: Signed Intake Vital Signs 08/04/24 09:49 09/10/24 14:04 09/10/24 14:10 Height 5 ft 7 in 5 ft 7 in Weight: 185 lb BMI 29.0 BP 149/98 H 137/97 H Intake Visit Reasons: surgical consult per [employer] Instructor Required: No Is patient in pain?: Yes (lower left pelvic pain) Feel stressed/tense/nervous/anx ious/difficulty sleeping: not at all Allergies adhesive tape Allergy (Mild, Verified 09/10/24 14:06) Rash Iodinated Contrast Media Allergy (Unknown, Verified 09/10/24 14:06) Itching Medications ???Medication ???Instructions ???Recorded ???Confirmed ???Type amiloride 5 mg tablet 20 mg PO DAILY 02/16/22 09/10/24 History hydralazine 25 mg tablet 25 mg PO TID 02/16/22 09/10/24 History verapamil 180 mg 24 hr 180 mg PO DAILY #60 caps 04/10/22 09/10/24 Rx capsule,extended release clonidine HCl 0.1 mg tablet 0.1 mg PO BID hypertensive 05/22/22 09/10/24 History emergency escitalopram oxalate 10 mg tablet 10 mg PO QDAY 09/30/24 11/06/24 History (Lexapro) Is last menstrual period known: No Post menopausal: No Patient : No : No [facility] Medical History (Updated 09/11/24 @ 08:[address] 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 Patient has had an ovarian cyst that has been present now for over a month. Patient has had chronic left hip pain for a year and has been increasing and has been worked up for musculoskeletal origin and workup has been negative. She has tried interventions and nothing has resolved it. She also has deep dyspareunia. Upon pelvic ultrasound she has a cystic ovarian lesion that has doubled in size in the last month. History 3 Elective abortions Hx Para 3 Spontaneous abortions Hx # Term Pregnancies Ectopic pregnancies Hx # Pregnancies Multiple births # of living children 3 ROS Const Constitutional: Denies fatigue, fever(s), headache(s), increased appetite, poor appetite, weight gain or weight loss Cardio Card: Denies chest pain Resp Resp: Denies cough or dyspnea GI GI: Reports as per HPI; Denies constipation, nausea or vomiting : Reports as per HPI, vaginal discharge, vaginal dryness, vaginal odor and vaginal pruritus; Denies difficulty voiding, dysuria, urinary frequency, urinary incontinence, urinary hesitancy or urinary urgency Skin Skin/Breast: Denies change in hair, breast mass, breast pain or breast skin changes Exam Const General: cooperative, healthy appearing, comfortable, no acute distress and well developed Nutritional Appearance: average body habitus Orientation: alert [facility] Head: normal to inspection and normocephalic Neck Neck: normal visual inspection and trachea midline Thyroid: thyroid normal Resp Effort Inspection: normal respiratory effort GI Inspection: normal to inspection and non-distended Palpation: soft and no hepatosplenomegaly General: bladder normal to palpation External Female Exam: normal external appearance and normal appearance of the urethra Urethra: normal appearance of the urethra, normal palpation and no discharge Speculum Exam - Vagina: normal appearance of the vagina and normal vaginal discharge Bimanual Exam- Vagina Uterus: bladder normal to palpation Other: cystic ovarian mass palpated at cuff of vagina, tender on exam and fluctuant Skin General: no rashes or lesions noted Coding Level of Care Code Off vis,est,level 4 Diagnoses Dyspareunia Chronic pelvic pain in female R10.2; G89.29 Left ovarian (more content not included)... Normal [facility] Pelvic w/ Transvaginalon Pelvic w/ Transvaginal [facility] [address] [place] [id number] Pelvic w/ Transvaginal MR#: [id number] Acct: [id number] Name: MALISSA ELLIOTT BRIANNA Rep #: [id number] : 1985 F 39 From: Abimbola waldron MD PCP: Dr. Marco A Marie MD Status: [facility] Study: Pelvic w/ Transvaginal Date of Exam: 08/18/24 Exam# [id number] Ordering Dr: Maddie Gaytan WASTE MANAGEMENT ENGINEER WASTE MANAGEMENT ENGINEER -C [id number] EXAM: US PELVIS TRANSABDOMINAL LIMITED AND TRANSVAGINAL CLINICAL INDICATION: left ovarian cyst TECHNIQUE: Transabdominal (limited) and transvaginal pelvic ultrasound was performed with grayscale and color Doppler imaging. Transvaginal imaging was used for better evaluation of the endometrium and adnexa. COMPARISON: 07/18/2024. FINDINGS: UTERUS/CERVIX: Uterus is surgically absent. RIGHT OVARY: Right ovary is surgically absent. LEFT OVARY: Left ovary measures 3.9 x 3.7 x 3 cm. Arterial and venous flow are documented. Multiple simple ovarian cysts, the largest measuring 4.3 x 2.4 x 2.5 cm. No significant change compared to the prior study. Blood flow is present in the left ovary. FREE FLUID: None. BLADDER: Unremarkable as visualized. Wall is normal thickness for degree of distention. US/Pelvic w/ Transvaginal IMPRESSION: Left ovarian cysts without significant change. Consider additional sonographic follow-up in 8-12 weeks. Electronically Signed: Abimbola Gonzalez MD at 18:17 EDT Reading Location ID and State: [id number] / Tel , Service support , CC: INGRID Gaytan; Dr. Marco A Marie MD Passenger Conductor: Signed Normal [facility] SCRN MAMM (CAD)W/LITA BILATo n 08-18-2024 SCRN MAMM (CAD)W/LITA BILAT [facility] [address] [place] [address] SCRN MAMM (CAD)W/LITA BILAT MR#: [id number] Acct: [id number] Name: MALISSA ELLIOTT BRIANNA Rep #: [id number] : 1985 F 39 From: Alberto Moses MD PCP: Dr. Marco A Marie MD Status: [facility] Study: SCRN MAMM (CAD)W/LITA BILAT Date of Exam: 08/05 02/26 Exam# [id number] Ordering Dr: Maddie Gaytan NP, NP [id number] MAMMOGRAPHY - BILATERAL SCREENING 3-D TOMOSYNTHESIS REASON FOR EXAM: Female, 39 years old. screen PERTINENT HISTORY: No significant family history. TECHNIQUE: 2-D mammograms and 3-D Tomosynthesis of the breast (s) were performed. CAD was performed. COMPARISON: None. FINDINGS: The breast composition is composed of scattered fibroglandular density. Scattered benign calcifications are seen. No dense spiculated masses or suspicious microcalcifications are identified. No architectural distortion is identified. There is no skin thickening or retraction. There has been no significant change since the prior study. BI/SCRN MAMM (CAD)W/LITA BILAT IMPRESSION: No mammographic signs of malignancy. Routine yearly mammograms recommended. ASSESSMENT CATEGORY: BIRADS Category 1: Negative. A letter regarding these results will be sent to the patient by the facility within 30 days. FOLLOW UP RECOMMENDATION: Yearly follow up mammogram recommended. (A) Approximately 10% of breast cancers are not detected by mammography. A normal mammogram should not delay biopsy of a clinically suspicious abnormality. Electronically Signed: Alberto Moses MD at 8:40 EDT , CC: INGRID Gaytan; Dr. Marco A Marie MD Passenger Conductor: Signed Normal [facility] Cancer Antigen 125on 024 CA 125 17.4 U/mL Normal 0.0-38.1 [facility] Comment on above: Result Comment: [employer] Electrochemiluminescence Immunoassay (ECLIA) Values obtained with different assay methods or kits cannot be used interchangeably. Results cannot be interpreted as absolute evidence of the presence or absence of malignant disease. Performed at: [address] [id number] Floor Person: Kashmir Levy PhD, Phone: [phone] Performed By: #### L 501.6710, L501.5200, L501.9520, L7000.5300, L500.4050 #### [facility] [address] [place] [address]. [place], [address] Carcinoembryonic Antigenon 1 CEA 1.8 ng/mL Normal 0.0-4.7 [facility] Comment on above: Result Comment: Nons mokers <3.9 Smokers <5.6 [employer] Electrochemiluminescence Immunoassay (ECLIA) Values obtained with different assay methods or kits cannot be used interchangeably. Results cannot be interpreted as absolute evidence of the presence or absence of malignant disease. Performed By: #### L 501.6710, L501.5200, L501.9520, L7000.5300, L500.4050 #### [facility] [address] [place], [place], [address] Estradiolon 08-04-2024 ESTRADIOL 46.9 pg/mL Normal [facility] Comment on above: Result Comment: NORM AL REFERENCE RANGES FEMALE FOLLICULAR 21.4 - 164.8 pg/mL MID-CYCLE PEAK 49.9 - 367.2 pg/mL LUTEAL 40.2 - 259.0 pg/mL POST-MENOPAUSAL ON MHT <11.0 - 462.1 pg/mL NOT ON MHT <11.0 - 58.3 pg/mL MALE <11.0 - 52.5 pg/mL NOTE: [facility] HAS CONFIRMED THE DRUG FULVETRANT (FASLODEX) MAY CAUSE FALSELY ELEVATED ESTRADIOL RESULTS WHEN USING THIS TEST METHOD. IF PATIENT IS TAKING FULVESTRANT AN ALTERNATIVE METHOD SHOULD BE USED TO DETERMINE ESTRADIOL CONCENTRATION. Performed By: #### L 501.6710, L501.5200, L501.9520, L7000.5300, L500.4050 #### [facility] [address] [place], [place], [id number] Follicle Stimulating Hormone on 08-04-2024 FSH 11.5 mIU/mL Normal [facility] Comment on above: Result Comment: NORMAL REFERENCE RANGES FEMALE FOLLICULAR 2.3 - 12.6 mIU/mL MID-CYCLE PEAK 5.2 - 17.5 mIU/mL LUTEAL 1.7 - 12.9 mIU/mL POST-MENOPAUSAL ON MHT 5.9 - 72.8 mIU/mL NOT ON MHT 12.7 - 132.2 mlU/mL MALE 0.7 - 10.8 mIU/mL Performed By: #### L 501.6710, L501.5200, L501.9520, L7000.5300, L500.4050 #### [facility] [address] [place], [place], [address] [employer] Office Visit Reporton 08-04-2024 [employer] [employer] Office Visit Report [facility] [address], [address] [place] [address] OFFICE VISIT Date of Service: 08/04/24 MR#: [id number] Acct: [id number] Name: MALISSA ELLIOTT Rep #: [id number] : 1985 Provider: INGRID mejia Age/Sex: 39/F Location: [facility] Status: Signed Intake Vital Signs 08/28/22 09:01 08/04/24 09:49 Height 5 ft 7 in 5 ft 7 in Intake Visit Reasons: LEFT ADNEXAL MASS CYST ([place]) Chief Complaint: Left cyst/poss. mass [employer] Instructor Required: No Is patient in pain?: No Allergies adhesive tape Allergy (Mild, Verified 08/04/24 09:43) Rash Iodinated Contrast Media Allergy (Unknown, Verified 08/04/24 09:42) Itching Medications ???Medication ???Instructions ???Recorded ???Confirmed ???Type amiloride 5 mg tablet 20 mg PO DAILY 02/16/22 08/04/24 History hydralazine 25 mg tablet 25 mg PO TID 02/16/22 08/04/24 History verapamil 180 mg 24 hr 180 mg PO DAILY #60 caps 04/10/22 08/04/24 Rx capsule,extended release clonidine HCl 0.1 mg tablet 0.1 mg PO BID hypertensive 05/22/22 08/04/24 History emergency cyclobenzaprine 10 mg tablet 10 mg PO TID 08/04/24 08/04/24 History escitalopram oxalate 10 mg tablet 10 mg PO QDAY 08/04/24 08/04/24 History (Lexapro) Is last menstrual period known: No Post menopausal: No Patient : No : No Control Method: Hysterectomy PFSH Medical History (Updated 08/04/24 @ 11:10 by INGRID Casillas NP) PSVT (paroxysmal supraventricular tachycardia) WPW (Vqztm-Lrpaellvf-Xfpja syndrome) Hypertensive heart disease without HF (heart failure) Mixed hyperlipidemia Essential hypertension Migraine TIA (transient ischemic attack) Tachycardia Surgical History (Updated 08/04/24 @ 09:47 by Alanna Frye) History of resection of rib S/P tubal ligation History of hysterectomy Family History Other Cancer Diabetes Heart disease Hypertension Social History (Updated 08/04/24 @ 09:47 by Alanna Frye) household members: spouse current occupational status: employed 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 She had CT of abdomen due to a fall and was found to have a possible 5cm dermoid on left ovary. PCP then ordered US which indicated a 2.9 cystic lesion within ovary and 2 cysts outside of left ovary largest 4.3cm. She had a hysterectomy [facility] in 2011. Was told precancerous cells but not sure where but told she did not need further pap smears. This was done per Dr Brito. Patient denies any pain, bloating or weight loss. Denies past history of abnormal paps. Is having sleep disturbance do to hot flashes. Recent normal thyroid study History 3 Elective abortions Hx Para 3 Spontaneous abortions Hx # Term Pregnancies Ectopic pregnancies Hx # Pregnancies Multiple births # of living children 3 ROS Const Constitutional: Reports system reviewed and no additional complaints, except as documented Eyes Eyes: Reports system reviewed and no additional complaints, except as documented GI GI: Denies abdominal pain or change in bowel habits : Reports as per HPI Exam Const General: cooperative and no acute distress Orientation: oriented x3 External Female Exam: normal external appearance and normal appearance of the urethra Urethra: normal appearance of the urethra Speculum Exam - Vagina: normal appearance of the vagina, normal vaginal discharge, no lesions and nontender Speculum Exam - Cervix: absent Bimanual Exam- Vagina Uterus: uterus absent Bimanual Exam- Adnexa, other: normal adnexae, no masses, normal and non-tender Pelvic Support: normal Coding Level of Care Code Off vis,est,level 3 Diagnoses Left ovarian cyst N83.202 Hot flashes R23.2 Assessment and Plan Assessment and Plan (1) Left ovarian cyst: Status: Acute Comment: US 4-6 weeks from initial; CA 125, CEA (2) Hot flashes: Status: Acute Comment: FSH, estradiol Orders: Orders Cancer Antigen 125 Today N83.202 - Unspecified ovarian cyst, left side, R23.2 - [place] Carcinoembryonic Antigen Today N83.202 - Unspecified ovarian cyst, left side, R23.2 - [place] Follicle Stimulating Hormone Today N83.202 - Unspecified ovarian cyst, left side, R23.2 - [place] Estradiol Today N83.202 - Unspecified ovarian cyst, left side, R23.2 - [place] Pelvic w/ Transvaginal 3 Weeks N83.202 - Unspecified ovarian cyst, lef (more content not included)... Normal [facility] ED Prov Noteon 07-29-2024 ED Prov Note ED PROVIDER NOTE [facility] NAME: Malissa Elliott AGE: 39 y.o. : 1985 VISIT DATE: 07/29/2024 CSN: [id number] PCP: Marco A Marie MD Chief Complaint Patient presents with Fall Shoulder Injury 39-year-old female presents with left trapezius pain and left shoulder pain since falling about 2 weeks ago. She tripped and fell injuring her low back. She denies any repeat injury. No nausea or vomiting. She did not hit her head. Pain is sharp and stabbing in the left trapezius area. Fall Shoulder Injury Past Medical History: Diagnosis Date Juan J's syndrome Past Surgical History: Procedure Laterality Date BONE RESECTION, RIB HYSTERECTOMY History reviewed. No pertinent family history. Social History Socioeconomic History Marital status: Tobacco Use Smoking status: Never Smokeless tobacco: Never Vaping Use Vaping status: Never Used Substance and Sexual Activity Alcohol use: Not Currently Drug use: Never Previous Medications Medication Sig aMILoride ([place]) 5 MG tablet Take 2 tablets twice a day by oral route for 90 days. cloNIDine HCL (CATAPRES) 0.2 MG tablet Take 1 tablet 3 times a day by oral route for 90 days. hydrALAZINE (APRESOLINE) 50 MG tablet Take 1 tablet 3 times a day by oral route for 90 days. Lexapro 10 mg tablet Take 1 tablet every day by oral route for 30 days. verapamil sr (CALAN-SR) 180 MG 12 or 24hr tablet Take 1 tablet every day by oral route for 90 days. Allergies Allergen Reactions Adhesive Rash Ct: Iodinated Contrast- Oral And Iv Dye Itching and Rash Review of Systems Patient Vitals for the past 24 hrs: BP Temp Temp src Pulse Resp SpO2 Height Weight 07/29/24 1637 (!) 142/102 98.4 degrees F (36.9 degrees C) Oral 84 16 98 % 5' 7 83.9 kg (185 lb) Physical Exam Vitals and nursing note reviewed. Constitutional: Appearance: Normal appearance. HENT: Head: Normocephalic and atraumatic. Nose: Nose normal. Eyes: Extraocular Movements: Extraocular movements intact. Pupils: Pupils are equal, round, and reactive to light. Musculoskeletal: General: Normal range of motion. Cervical back: Normal range of motion and neck supple. Comments: There is pain and spasming noted in the left trapezius muscle she has full range of motion of the left shoulder. It is minimally tender. Skin: General: Skin is warm and dry. Neurological: General: No focal deficit present. Mental Status: She is alert and oriented to person, place, and time. Laboratory & Radiographic Imaging (if done): No results found for this visit on 07/29/24. XR Shoulder Left 2+ Views (Standard) (Results Pending) Procedures Medical Decision Making Patient is able to abduct the left shoulder without any problems. I did order an x-ray consider that there is trauma involved. X-rays showed no evidence of fracture or dislocation. Patient discharged to home on nabumetone and cyclobenzaprine. Recommend ice and heat alternating. Follow-up with PCP. The patient has been informed that they may have pre-hypertension or hypertension based on a blood pressure reading in the Emergency Department. I recommend that the patient call the primary care provider listed on their discharge instructions or a physician of their choice as soon as possible to arrange follow-up in the next 4 weeks for further evaluation of possible pre-hypertension or hypertension. . Clinical Impression: No diagnosis found. ED Disposition None Follow-up Information Follow-up information has not been specified. Contact information for after-discharge care Follow-up information has not been specified. Jonny Ramirez, DO 07/29/24 1730 AUTHENTICATED BY JONNY RAMIREZ, ON 07/29/2024 17:30:24 [facility] XR SHOULDER LEFT 2+ VIEWS (S TANDARD)on 07-29-2024 XR SHOULDER LEFT 2+ VIEWS (STANDARD) EXAMINATION: XR SHOULDER LEFT 2+ VIEWS (STANDARD) 07/29/2024 5:12 pm HISTORY: ORDERING SYSTEM PROVIDED HISTORY: fall, TECHNOLOGIST PROVIDED HISTORY: Injury/Trauma Reason for exam: fall a week or so ago and has continued pain and discomfort in the shoudler with increased pain when moving/using the arm Cancer History: u Surgery, RadiationHistory: u Encounter Type: Initial Mechanism of injury: fall ORDERING SYSTEM PROVIDED DIAGNOSIS CODES: COMPARISON: None FINDINGS: Three views were done of the left shoulder. Bone density is unremarkable. No fracture or dislocation or bony lesions are noted. No advanced degenerative changes are noted. The surrounding soft tissues are unremarkable. No soft tissue mass or foreign body or chronic calcifications are noted. Postsurgical clips are noted in the supraclavicular region medially. There appears to be a chronic calcification overlying the region of the left apical region IMPRESSION: 1. Nonacute plain films of the left shoulder. 2. Additional changes as discussed above. Workstation ID: [id number] Dictated by: VICK ARANA on SunJul 29, 2024 5:56:29 PM EDT Transcribed by: VICK ARANA on SunJul 29, 2024 5:56:29 PM EDT Finalized by: VICK ARANA on SunJul 29, 2024 5:56:29 PM EDT [facility] Comment on above: Order Comment: Injur y/Trauma or Illness?:Injury/Trauma How long have you had these symptoms (acute/chronic)?:Acute Reason for exam?:fall a week or so ago and has continued pain and discomfort in the shoudler with increased pain when moving/using the arm History of cancer?:u Surgeries, chemotherapy, or radiation?:u Type of Exam?:Initial Mechanism of injury?:fall Pelvic w/ Transvaginalon Pelvic w/ Transvaginal [facility] [address] [place] [id number] Pelvic w/ Transvaginal MR#: [id number] Acct: [id number] Name: MALISSA ELLIOTT BRIANNA Rep #: [id number] : 1985 F 39 From: Isael King DO PCP: Dr. Marco A Marie MD Status: REG CLI Study: Pelvic w/ Transvaginal Date of Exam: 07/18/24 Exam# [id number] Ordering Dr: Jane Castañeda MD [id number] INDICATION: CT Pelvic Cyst EXAMINATION: Ultrasound US Pelvis Non OB Complete With Transvaginal Imaging TECHNIQUE: Transabdominal and transvaginal pelvic ultrasound was performed. Grayscale, spectral waveform, and color flow Doppler evaluation of the adnexa. COMPARISON: FINDINGS: UTERUS: Status post hysterectomy. RIGHT OVARY: Status post right oophorectomy. LEFT OVARY: 2.9 x 1.6 x 1.9 cm. There is a left adnexal hyperechoic 2.9 x 2.6 x 3.4 cm lesion. There are adjacent cystic changes measuring 4.3 x 2.4 x 2.4 cm and 2.2 x 1.7 x 1.5 cm. There is normal arterial inflow and venous outflow present in the left ovary. FREE FLUID: Mild. US/Pelvic w/ Transvaginal IMPRESSION: Hyperechoic and cystic structures are noted within the left adnexa. Mild pelvic fluid. Correlate with CT or MRI if needed. Electronically Signed: Isael King DO at 20:41 EDT Reading Location ID and State: [address] [place] [address] Tel [phone], Service support , CC: Dr. Jane Castañeda MD; Dr. Marco A Marie MD Passenger Conductor: Signed Normal [facility] CT ABDOMEN/PELVIS W/O CONTRA [place] 07-11-2024 CT ABDOMEN/PELVIS W/O CONTRAST ORIGINAL HISTORY: Abdominal pain COMPARISON: No TECHNIQUE: CT of the abdomen and pelvis with sagittal and coronal reconstructions. This exam was performed according to our departmental dose optimization program, and includes the following measures where applicable: automated exposure control, adjustment of the mAs and/or kVp according to patient size and/or exam, and an iterative reconstruction algorithm. FINDINGS: The abdominal organs are unremarkable in appearance. There is a hysterectomy. There are surgical clips in the pelvis. There is a somewhat irregular dermoid in the posterior pelvis, about 5.6 cm in maximum diameter. Bowel is poorly evaluated in the absence of oral contrast. A normal appendix is identified. There is no free fluid. Musculoskeletal structures are unremarkable. There is infiltration of the subcutaneous tissues over the left lower back. IMPRESSION: Surgical changes to the pelvis as well as an irregular dermoid; this would be better evaluated by ultrasound. Interpreted by: Hollis Wynn MD Preliminary Report By: Hollis Wynn MD Electronically signed By Hollis Wynn MD Dictated Date: 07/11/2024 11:10:38 AM Prelim Date: 07/11/2024 11:16:10 AM Sign Date: 07/11/2024 11:16:10 AM Ordering Provider: IVAN Jennings [facility] Activated partial thrombopla stin time (aPTT) in platelet poor plasma by coagulation aOrdered By: Marco A Marie on 03-11-2024 aPTT Coag (PPP) [Time] 26.5 s 24.1-36.2 [facility] Basophil percentageOrdered B y: Marco A Marie on 03-11-2024 Bilirubin [Mass/Vol] 0.30 mg/dL 0.20-1.00 [facility] Comment on above: For patients on eltr ombopag therapy, use of Dimension [place] TBIL is not recommended. Chloride [Moles/Vol] 110 mmol/L 98-107 [facility] Glucose [Mass/Vol] 69 mg/dL 74-106 [facility] Hemoglobin (Bld) [Mass/Vol] 13.5 g/dL 12.0-15.0 [facility] Potassium [Moles/Vol] 3.8 mmol/L 3.5-5.1 [facility] Protein [Mass/Vol] 7.4 g/dL 6.4-8.2 [facility] Sodium [Moles/Vol] 138 mmol/L 136-145 [facility] WBC (Bld) [#/Vol] 7.4 10*3/uL 4.4-11.0 [facility] Determination of erythrocyte mean corpuscular volume (MCV)Ordered By: Marco A Marie on 03-11-2024 MCV (RBC) [Entitic vol] 89.8 fL 81-99 [facility] Erythrocyte distribution wid th ratioOrdered By: Marco A Marie on 03-11-2024 Erythrocyte distribution width (RBC) [Ratio] 13.8 % 11.6-14.6 [facility] Erythrocyte distribution wid th standard deviationOrdered By: Marco A Marie on 03-11-2024 Erythrocyte distribution width (RBC) [Entitic vol] 44.9 fL 35.1-43.9 [facility] Hematocrit Auto (Bld) [Volum e fraction]Ordered By: Marco A Marie on 03-11-2024 Hematocrit (Bld) [Volume fraction] 41.5 % 37-47 [facility] Laboratory - Chemistry and C hemistry - challengeOrdered By: Marco A Marie on 03-11-2024 Albumin/Globulin [Mass ratio] 1.2 {ratio} 0.9-2.4 [facility] ALP [Catalytic activity/Vol] 59 U/L 45-117 [facility] ALT [Catalytic activity/Vol] 12 U/L 13-56 [facility] CO2 [Moles/Vol] 23.0 mmol/L 21.0-32.0 [facility] Globulin (S) [Mass/Vol] 3.4 g/dL 2.2-4.2 [facility] Urea nitrogen/Creatinine [Mass ratio] 11.0 mg/mg 10-20 [facility] Laboratory - CoagulationOrde red By: Marco A Marie on 03-11-2024 INR Coag (Bld) [Relative time] 0.9 {INR} [facility] PT Coag (PPP) [Time] 12.2 s 11.7-14.9 [facility] - Hematology and Cell countsOrdered By: Marco A Marie on 03-11-2024 MCH (RBC) [Entitic mass] 29.2 pg 27.0-32.0 [facility] MCHC (RBC) [Mass/Vol] 32.5 g/dL 32-36 [facility] Platelet mean volume (Bld) [Entitic vol] 11.1 fL 6.2-12.0 [facility] Platelets (Bld) [#/Vol] 334 10*3/uL 150-450 [facility] No Panel InformationOrdered By: Marco A Marie on 03-11-2024 Estimated GFR (MDRD) Amer 100 mL/min >60 [facility] Comment on above: GFR Calc Estimated GFR (MDRD) Non-Af Amer 82 mL/min >60 [facility] Comment on above: Non- GFR Calc RBC Auto (Bld) [#/Vol]Ordere d By: Marco A Marie on 03-11-2024 RBC (Bld) [#/Vol] 4.62 10*6/uL 4.2-5.4 [facility] Serum or plasma calcium tori urement (mass/volume)Ordered By: Marco A Marie on 03-11-2024 Calcium [Mass/Vol] 8.8 mg/dL 8.5-10.1 [facility] Serum or plasma creatinine m easurement (mass/volume)Ordered By: Marco A Marie on 03-11-2024 Creatinine [Mass/Vol] 0.82 mg/dL 0.55-1.02 [facility] Comment on above: The validity of the calculated GFR & GFRAA in patients over 70 years has not been determined. Clinical correlation is essential. Serum or plasma urea nitroge n measurement (mass/volume)Ordered By: Marco A Marie on 03-11-2024 Urea nitrogen [Mass/Vol] 9 mg/dL 7-18 [facility] Thin prep Papanicolaou smear with manual screeningOrdered By: Marco A Marie on 03-11-2024 Thin prep Papanicolaou smear with manual screening 4.0 g/dL 3.2-5.0 [facility] Thin prep Papanicolaou smear with manual screening 11 U/L 15-37 [facility] Thin prep Papanicolaou smear with manual screening 5 5-15 [facility] Basophil percentageOrdered B y: Sarai Sosa on 12-25-2023 Chloride [Moles/Vol] 108 mmol/L 98-107 [facility] Glucose [Mass/Vol] 82 mg/dL 74-106 [facility] Potassium [Moles/Vol] 3.8 mmol/L 3.5-5.1 [facility] Sodium [Moles/Vol] 138 mmol/L 136-145 [facility] Laboratory - Chemistry and C hemistry - challengeOrdered By: Sarai Sosa on 12-25-2023 CO2 [Moles/Vol] 22.0 mmol/L 21.0-32.0 [facility] Urea nitrogen/Creatinine [Mass ratio] 14.6 mg/mg 10-20 [facility] No Panel InformationOrdered By: Sarai Sosa on 12-25-2023 Estimated GFR (MDRD) Amer 110 mL/min >60 [facility] Comment on above: GFR Calc Estimated GFR (MDRD) Non-Af Amer 91 mL/min >60 [facility] Comment on above: Non- GFR Calc Serum or plasma calcium tori urement (mass/volume)Ordered By: Sarai Sosa on 12-25-2023 Calcium [Mass/Vol] 8.8 mg/dL 8.5-10.1 [facility] Serum or plasma creatinine m easurement (mass/volume)Ordered By: Sarai Sosa on 12-25-2023 Creatinine [Mass/Vol] 0.75 mg/dL 0.55-1.02 [facility] Comment on above: The validity of the calculated GFR & GFRAA in patients over 70 years has not been determined. Clinical correlation is essential. Serum or plasma urea nitroge n measurement (mass/volume)Ordered By: Sarai Sosa on 12-25-2023 Urea nitrogen [Mass/Vol] 11 mg/dL 7-18 [facility] Thin prep Papanicolaou smear with manual screeningOrdered By: Sarai Sosa on 12-25-2023 Thin prep Papanicolaou smear with manual screening 8 5-15 [facility] Absolute lymphocyte countOrd ered By: Milly Perry on 10-04-2023 Lymphocytes Auto (Unsp spec) [#/Vol] 2.63 10*3/uL 0.83-4.51 [facility] Basophil percentageOrdered B y: Milly Perry on 10-04-2023 Basophils/100 WBC (Bld) 0.5 % 0-1 [facility] Bilirubin [Mass/Vol] 0.60 mg/dL 0.20-1.00 [facility] Comment on above: For patients on eltr ombopag therapy, use of [employer] TBIL is not recommended. Chloride [Moles/Vol] 110 mmol/L 98-107 [facility] Eosinophils/100 WBC (Bld) 0.1 % 0-5 [facility] Glucose [Mass/Vol] 73 mg/dL 74-106 [facility] Neutrophils (Bld) [#/Vol] 4.4 10*3/uL 2.0-7.7 [facility] Neutrophils/100 WBC (Bld) 58.4 % 47-70 [facility] Potassium [Moles/Vol] 3.7 mmol/L 3.5-5.1 [facility] Protein [Mass/Vol] 8.1 g/dL 6.4-8.2 [facility] Sodium [Moles/Vol] 138 mmol/L 136-145 [facility] WBC (Bld) [#/Vol] 7.5 10*3/uL 4.4-11.0 [facility] Blood erythrocytes count (nu mber/volume)Ordered By: Milly Perry on 10-04-2023 RBC (Bld) [#/Vol] 5.05 10*6/uL 4.2-5.4 [facility] Blood hemoglobin measurement (mass/volume)Ordered By: Milly Perry on 10-04-2023 Hemoglobin (Bld) [Mass/Vol] 15.0 g/dL 12.0-15.0 [facility] Blood lymphocytes/100 leukoc ytesOrdered By: Milly Perry on 10-04-2023 Lymphocytes/100 WBC (Bld) 34.9 % 19-41 [facility] Blood monocytes/100 leukocyt esOrdered By: Milly Perry on 10-04-2023 Monocytes/100 WBC (Bld) 6.0 % 0-10 [facility] Blood platelet mean volumeOr dered By: Milly Perry on 10-04-2023 Platelet mean volume (Bld) [Entitic vol] 10.6 fL 6.2-12.0 [facility] Determination of erythrocyte mean corpuscular volume (MCV)Ordered By: Milly Perry on 10-04-2023 MCV (RBC) [Entitic vol] 90.3 fL 81-99 [facility] Hematocrit Auto (Bld) [Volum e fraction]Ordered By: Milly Perry on 10-04-2023 Hematocrit (Bld) [Volume fraction] 45.6 % 37-47 [facility] Laboratory - Chemistry and C hemistry - challengeOrdered By: Milly Perry on 10-04-2023 ALP [Catalytic activity/Vol] 52 U/L 45-117 [facility] ALT [Catalytic activity/Vol] 10 U/L 13-56 [facility] CO2 [Moles/Vol] 22.0 mmol/L 21.0-32.0 [facility] Globulin (S) [Mass/Vol] 3.8 g/dL 2.2-4.2 [facility] Urea nitrogen/Creatinine [Mass ratio] 8.6 mg/mg 10-20 [facility] Laboratory - Hematology and Cell countsOrdered By: Milly Perry on 10-04-2023 Erythrocyte distribution width (RBC) [Entitic vol] 43.2 fL 35.1-43.9 [facility] Erythrocyte distribution width (RBC) [Ratio] 13.1 % 11.6-14.6 [facility] Immature granulocytes/100 WBC (Bld) 0.100 % 0.0-0.9 [facility] Comment on above: IG% - Immature Granu locytes (promyelocytes, myelocytes and metamyelocytes) > 1% indicates that a LEFT SHIFT is Present. MCH (RBC) [Entitic mass] 29.7 pg 27.0-32.0 [facility] Nucleated RBC/100 WBC (Bld) [Ratio] 0 % 0-5 [facility] MCHC Auto (RBC) [Mass/Vol]Or dered By: Milly Perry on 10-04-2023 MCHC (RBC) [Mass/Vol] 32.9 g/dL 32-36 [facility] No Panel InformationOrdered By: Milly Perry on 10-04-2023 Estimated GFR (MDRD) Amer 86 mL/min >60 [facility] Comment on above: GFR Calc Estimated GFR (MDRD) Non-Af Amer 71 mL/min >60 [facility] Comment on above: Non- GFR Calc Platelets bldOrdered By: Ashely Perry on 10-04-2023 Platelets (Bld) [#/Vol] 316 10*3/uL 150-450 [facility] Serum or plasma albumin tori urement (mass/volume)Ordered By: Milly Perry on 10-04-2023 Albumin [Mass/Vol] 4.3 g/dL 3.2-5.0 [facility] Serum or plasma albumin/glob ulin mass ratioOrdered By: Milly Perry on 10-04-2023 Albumin/Globulin [Mass ratio] 1.1 {ratio} 0.9-2.4 [facility] Serum or plasma calcium tori urement (mass/volume)Ordered By: Milly Perry on 10-04-2023 Calcium [Mass/Vol] 9.0 mg/dL 8.5-10.1 [facility] Serum or plasma creatinine m easurement (mass/volume)Ordered By: Milly Perry on 10-04-2023 Creatinine [Mass/Vol] 0.93 mg/dL 0.55-1.02 [facility] Comment on above: The validity of the calculated GFR & GFRAA in patients over 70 years has not been determined. Clinical correlation is essential. Serum or plasma urea nitroge n measurement (mass/volume)Ordered By: Milly Perry on 10-04-2023 Urea nitrogen [Mass/Vol] 8 mg/dL 7-18 [facility] Thin prep Papanicolaou smear with manual screeningOrdered By: Milly Perry on 10-04-2023 Thin prep Papanicolaou smear with manual screening 6 U/L 15-37 [facility] Thin prep Papanicolaou smear with manual screening 6 5-15 [facility] .Auto Diffon 10-03-2023 Basophil, Absolute 0.1 10 3/mcL Normal 0.0-0.2 [facility] Comment on above: Performed By: #### C JILLIAN POSEY ANEU, MDW, LIP, GFR, CMP #### [address] [address] Basophils/100 WBC (Bld) 0.7 % Normal 0.0-2.5 [facility] ([place]) Comment on above: Performed By: #### C JILLIAN POSEY ANEU, MDW, LIP, GFR, CMP #### [place] [place], [place] [address] Eosinophil, Absolute 0.0 10 3/mcL Normal 0.0-0.4 [facility] ([place]) Comment on above: Performed By: #### C BC, ADIFF, ANEU, MDW, LIP, GFR, CMP #### [address] [address] Eosinophils/100 WBC (Bld) 0.3 % Normal 0.0-7.0 [facility] ([place]) Comment on above: Performed By: #### C BC, ADIFF, ANEU, MDW, LIP, GFR, CMP #### [address] [address] Lymphocyte, Absolute 2.0 10 3/mcL Normal 0.8-3.9 [facility] ([place]) Comment on above: Performed By: #### C BC, ADIFF, ANEU, MDW, LIP, GFR, CMP #### [address] [address] Lymphocytes/100 WBC (Bld) 27.2 % Normal 10.0-50.0 [facility] ([place]) Comment on above: Performed By: #### C BC, ADIFF, ANEU, MDW, LIP, GFR, CMP #### [address] [address] Monocyte, Absolute 0.5 10 3/mcL Normal 0.2-1.0 [facility] ([place] Comment on above: Performed By: #### C BC, ADIFF, ANEU, MDW, LIP, GFR, CMP #### [address] [address] Monocytes/100 WBC (Bld) 6.3 % Normal 1.7-13.0 [facility] ([place]) Comment on above: Performed By: #### C BC, ADIFF, ANEU, MDW, LIP, GFR, CMP #### [address] [address] Neutrophils/100 WBC (Bld) 65.5 % Normal 37.0-80.0 [facility] ([place]) Comment on above: Performed By: #### C BC, ADIFF, ANEU, MDW, LIP, GFR, CMP #### [address] [address] .GFRon 10-03-2023 GFR 82 ml/min/1.73sqm Normal [facility] ([place]) Comment on above: Result Comment: GFR Population mean for , Non- Americans Ages 20-29 = 116 mL/min/1.73 sq.m. Ages 30-39 = 107 mL/min/1.73 sq.m. Ages 40-49 = 99 mL/min/1.73 sq.m. Ages 50-59 = 93 mL/min/1.73 sq.m. Ages 60-69 = 85 mL/min/1.73 sq.m. Ages 70+ = 75 mL/min/1.73 sq.m. Chronic Kidney Disease: Less than 60 mL/min/1.73 square meters End Stage Renal Disease: Less than 15 mL/min/1.73 square meters Performed By: #### C JILLIAN POSEY ANEU, W, LIP, GFR, CMP #### [address] [address] GFR Non- 68 ml/min/1.73sqm Normal [facility] ([place]) Comment on above: Result Comment: GFR Population mean for , Non- Americans Ages 20-29 = 116 mL/min/1.73 sq.m. Ages 30-39 = 107 mL/min/1.73 sq.m. Ages 40-49 = 99 mL/min/1.73 sq.m. Ages 50-59 = 93 mL/min/1.73 sq.m. Ages 60-69 = 85 mL/min/1.73 sq.m. Ages 70+ = 75 mL/min/1.73 sq.m. Chronic Kidney Disease: Less than 60 mL/min/1.73 square meters End Stage Renal Disease: Less than 15 mL/min/1.73 square meters Performed By: #### C JILLIAN POSEY ANEU, W, LIP, GFR, CMP #### [address] [address] .MDWon 10-03-2023 Monocyte Distribution Width 18.16 Normal 0.00-20.00 [facility] ([place]) Comment on above: Result Comment: For ED adult patients suspected of sepsis, MDW<=20.0 does not rule out sepsis or risk of sepsis Performed By: #### C KALPESH, JILLIAN, ANEU, MDW, LIP, GFR, CMP #### [place] [address] .NEUABSon 10-03-2023 Neutrophil, Absolute 4.8 10 3/mcL Normal 2.9-6.2 [facility] ([place]) Comment on above: Performed By: #### C BC, JILLIAN, ANEU, MDW, LIP, GFR, CMP #### [place] [address] CBCon 10-03-2023 Erythrocyte distribution width (RBC) [Ratio] 13.9 % Normal 11.5-14.5 [facility] ([place]) Comment on above: Performed By: #### C KALPESH, JILLIAN, NIKKI, MDW, LIP, GFR, CMP #### [place] [address] Hematocrit (Bld) [Volume fraction] 42.9 % Normal 37.0-47.0 [facility] ([place]) Comment on above: Performed By: #### C KALPESH, JILLIAN, NIKKI, MDW, LIP, GFR, CMP #### [place] [address] Hgb 14.7 G/dL Normal 12.0-16.0 [facility] ([place]) Comment on above: Performed By: #### C KALPESH, JILLIAN, NIKKI, MDW, LIP, GFR, CMP #### [place] [address] MCH (RBC) [Entitic mass] 29.6 pg Normal 27.0-31.2 [facility] ([place]) Comment on above: Performed By: #### C BC, JILLIAN, NIKKI, MDW, LIP, GFR, CMP #### [place] [address] MCHC 34.2 G/dL Normal 33.0-37.0 [facility] ([place]) Comment on above: Performed By: #### C BC, JILLIAN, ANEU, MDW, LIP, GFR, CMP #### [address] [address] MCV (RBC) [Entitic vol] 86.6 fL Normal 80.0-94.0 [facility] ([place]) Comment on above: Performed By: #### C KALPESH, JILLIAN, NIKKI, MDW, LIP, GFR, CMP #### [address] [address] Platelet 286 10 3/mcL Normal 130-400 [facility] ([place]) Comment on above: Performed By: #### C KALPESH, JILLIAN, NIKKI, MDW, LIP, GFR, CMP #### [address] [address] Platelet mean volume (Bld) [Entitic vol] 8.6 fL Normal 7.4-10.4 [facility] ([place]) Comment on above: Performed By: #### C KALPESH, JILLIAN, NIKKI, MDW, LIP, GFR, CMP #### [place] [address] RBC 4.96 10 6/mcL Normal 4.20-5.40 [facility] ([place]) Comment on above: Performed By: #### C JILLIAN POSEY, NIKKI, MDW, LIP, GFR, CMP #### [address] [address] WBC 7.3 10 3/mcL Normal 4.6-10.8 [facility] ([place]) Comment on above: Performed By: #### C JILLIAN POSEY ANEU, MDW, LIP, GFR, CMP #### [address] [address] CMPon 10-03-2023 ALT [Catalytic activity/Vol] 10 U/L Low 14-59 [facility] ([place]) Comment on above: Performed By: #### C JILLIAN POSEY, NIKKI, MDW, LIP, GFR, CMP #### [address] [address] Albumin Level 4.3 G/dL Normal 3.5-5.0 [facility] ([place]) Comment on above: Performed By: #### C KALPESH, FREDYAGUSTIN, NIKKI, MDW, LIP, GFR, CMP #### [address] [address] Albumin/Globulin [Mass ratio] 1.3 {ratio} Normal 1.1-2.5 [facility] ([place]) Comment on above: Performed By: #### C BC, ADAGUSTIN, ANEU, MDW, LIP, GFR, CMP #### [address] [address] ALP [Catalytic activity/Vol] 59 U/L Normal 40-135 [facility] ([place]) Comment on above: Performed By: #### C BC, JILLIAN, NIKKI, MDW, LIP, GFR, CMP #### [address] [address] AST [Catalytic activity/Vol] 7 U/L Low 10-40 [facility] ([place]) Comment on above: Performed By: #### C BC, ADAGUSTIN, ANEU, MDW, LIP, GFR, CMP #### [address] [address] Bili Total 0.6 mg/dL Normal 0.2-1.0 [facility] ([place]) Comment on above: Result Comment: Use of this assay is not recommended for patients undergoing treatment with eltrombopag due to the potential for falsely elevated results. Performed By: #### C BC, ADAGUSTIN, ANEU, MDW, LIP, GFR, CMP #### [address] [address] BUN/Creatinine Ratio 12 ratio Normal 7-27 [facility] ([place] Comment on above: Performed By: #### C BC, ADAGUSTIN, NIKKI, MDW, LIP, GFR, CMP #### [address] [address] Calcium [Mass/Vol] 9.1 mg/dL Normal 8.4-10.2 [facility] ([place]) Comment on above: Performed By: #### C BC, JILLIAN, ANEU, MDW, LIP, GFR, CMP #### [address] [address] Chloride [Moles/Vol] 103 mmol/L Normal 98-107 [facility] Comment on above: Performed By: #### C BC, JILLIAN, NIKKI, MDW, LIP, GFR, CMP #### [address] [address] CO2 [Moles/Vol] 23 mmol/L Normal 22-29 [facility] ([place]) Comment on above: Performed By: #### C BC, ADAGUSTIN, NIKKI, MDW, LIP, GFR, CMP #### [address] [address] Creatinine [Mass/Vol] 0.92 mg/dL Normal 0.55-1.02 [facility] ([place]) Comment on above: Performed By: #### C BC, ADAGUSTIN, NIKKI, MDW, LIP, GFR, CMP #### [address] [address] Electrolyte Balance 10.0 mEq/L Normal 4.0-15.0 [facility] ([place]) Comment on above: Performed By: #### C BC, JILLIAN, NIKKI, MDW, LIP, GFR, CMP #### [place] [address] Globulin 3.3 G/dL Normal [facility] ([place]) Comment on above: Performed By: #### C BC, JILLIAN, NIKKI, MDW, LIP, GFR, CMP #### [address] [address] Glucose [Mass/Vol] 92 mg/dL Normal 70-105 [facility] ([place]) Comment on above: Performed By: #### C BC, ADAGUSTIN, ANEU, MDW, LIP, GFR, CMP #### [place] [address] Potassium [Moles/Vol] 4.5 mmol/L Normal 3.5-5.1 Formerly [facility], 1928–1983 ([place]) Comment on above: Performed By: #### C BC, ADAGUSTIN, ANEU, MDW, LIP, GFR, CMP #### [address] [address] Sodium [Moles/Vol] 136 mmol/L Normal 136-145 [facility] ([place]) Comment on above: Performed By: #### C JILLIAN POSEY ANEU, MDW, LIP, GFR, CMP #### [address] [address] Total Protein 7.6 G/dL Normal 6.4-8.2 [facility] ([place]) Comment on above: Performed By: #### C JILLIAN POSEY ANEU, MDW, LIP, GFR, CMP #### [place] [address] [place], [place] [address] Urea nitrogen [Mass/Vol] 11 mg/dL Normal 7-18 [facility] ([place]) Comment on above: Performed By: #### C JILLIAN POSEY ANEU, MDW, LIP, GFR, CMP #### [address] [address] LABORATORYOrdered By: SYSTEM SYSTEM on 10-03-2023 Albumin BCP dye [Mass/Vol] 4.3 G/dL Normal 3.5 - 5.0 G/dL AO ADM SS Albumin/Globulin [Mass ratio] 1.3 {ratio} Normal 1.1 - 2.5 ratio AO ADM SS ALP [Catalytic activity/Vol] 59 U/L Normal 40 - 135 U/L AO ADM SS ALT With P-5'-P [Catalytic activity/Vol] 10 U/L Low 14 - 59 U/L AO ADM SS AST With P-5'-P [Catalytic activity/Vol] 7 U/L Low 10 - 40 U/L AO ADM SS Basophil, Absolute 0.1 103/mcL Normal 0.0 - 0.2 10^3/mcL AO Workflow SS Basophils/100 WBC (Bld) 0.7 % Normal 0.0 - 2.5 % AO Workflow SS Bilirubin [Mass/Vol] 0.6 mg/dL Normal 0.2 - 1 .0 mg/dL AO ADM SS Comment on above: Interpretive Data: U se of this assay is not recommended for patients undergoing treatment with eltrombopag due to the potential for falsely elevated results. Calcium [Mass/Vol] 9.1 mg/dL Normal 8.4 - 10. 2 mg/dL AO ADM SS Chloride [Moles/Vol] 103 mmol/L Normal 98 - 10 7 mmol/L AO ADM SS CO2 [Moles/Vol] 23 mmol/L Normal 22 - 29 mmol/L AO ADM SS Creatinine [Mass/Vol] 0.92 mg/dL Normal 0.55 - 1.02 mg/dL AO ADM SS Electrolyte Balance 10.0 mEq/L Normal 4.0 - 15 .0 mEq/L AO ADM SS Eosinophil, Absolute 0.0 103/mcL Normal 0.0 - 0 .4 10^3/mcL AO Workflow SS Eosinophils/100 WBC (Bld) 0.3 % Normal 0.0 - 7.0 % AO Workflow SS Erythrocyte distribution width (RBC) [Ratio] 13.9 % Normal 11.5 - 14.5 % AO Workflow SS GFR/1.73 sq M.predicted among blacks MDRD (S/P/Bld) [Vol rate/Area] 82 ml/min/1.73sqm Invalid Interpretation Code AO Chemistry S Comment on above: Interpretive Data: GFR Population mean for , Non- Americans Ages 20-29 = 116 mL/min/1.73 sq.m. Ages 30-39 = 107 mL/min/1.73 sq.m. Ages 40-49 = 99 mL/min/1.73 sq.m. Ages 50-59 = 93 mL/min/1.73 sq.m. Ages 60-69 = 85 mL/min/1.73 sq.m. Ages 70+ = 75 mL/min/1.73 sq.m. Chronic Kidney Disease: Less than 60 mL/min/1.73 square meters End Stage Renal Disease: Less than 15 mL/min/1.73 square meters GFR/1.73 sq M.predicted among non-blacks MDRD (S/P/Bld) [Vol rate/Area] 68 ml/min/1.73sqm Invalid Interpretation Code AO Chemistry S Comment on above: Interpretive Data: GFR Population mean for , Non- Americans Ages 20-29 = 116 mL/min/1.73 sq.m. Ages 30-39 = 107 mL/min/1.73 sq.m. Ages 40-49 = 99 mL/min/1.73 sq.m. Ages 50-59 = 93 mL/min/1.73 sq.m. Ages 60-69 = 85 mL/min/1.73 sq.m. Ages 70+ = 75 mL/min/1.73 sq.m. Chronic Kidney Disease: Less than 60 mL/min/1.73 square meters End Stage Renal Disease: Less than 15 mL/min/1.73 square meters Globulin 3.3 G/dL Invalid Interpretation Code AO ADM SS Glucose [Mass/Vol] 92 mg/dL Normal 70 - 105 mg/dL AO ADM SS Hematocrit (Bld) [Volume fraction] 42.9 % Normal 37.0 - 47.0 % AO Workflow SS Hemoglobin (Bld) [Mass/Vol] 14.7 G/dL Normal 12.0 - 16.0 G/dL AO Workflow SS Lipase [Catalytic activity/Vol] 31 U/L Normal 16 - 77 U/L AO ADM SS Lymphocyte, Absolute 2.0 103/mcL Normal 0.8 - 3 .9 10^3/mcL AO Workflow SS Lymphocytes/100 WBC (Bld) 27.2 % Normal 10.0 - 50.0 % AO Workflow SS MCH (RBC) [Entitic mass] 29.6 pg Normal 27.0 - 31.2 pg AO Workflow SS MCHC 34.2 G/dL Normal 33.0 - 37.0 G/dL AO Workflow SS MCV (RBC) [Entitic vol] 86.6 fL Normal 80.0 - 94.0 fL AO Workflow SS Monocyte distribution width Auto (Bld) [Entitic vol] 18.16 1 Normal 0.00 - 20.00 AO Workflow SS Comment on above: Result Comment: For ED adult patients suspected of sepsis, MDW<=20.0 does not rule out sepsis or risk of sepsis Monocyte, Absolute 0.5 103/mcL Normal 0.2 - 1.0 10^3/mcL AO Workflow SS Monocytes/100 WBC (Bld) 6.3 % Normal 1.7 - 13.0 % AO Workflow SS Neutrophil, Absolute 4.8 103/mcL Normal 2.9 - 6 .2 10^3/mcL AO Workflow SS Neutrophils/100 WBC (Bld) 65.5 % Normal 37.0 - 80.0 % AO Workflow SS Platelet mean volume (Bld) [Entitic vol] 8.6 fL Normal 7.4 - 10.4 fL AO Workflow SS Platelets (Bld) [#/Vol] 286 103/mcL Normal 130 - 400 10^3/mcL AO Workflow SS Potassium [Moles/Vol] 4.5 mmol/L Normal 3.5 - 5.1 mmol/L AO ADM SS Protein [Mass/Vol] 7.6 G/dL Normal 6.4 - 8.2 G/dL AO ADM SS RBC (Bld) [#/Vol] 4.96 106/mcL Normal 4.20 - 5.40 10^6/mcL AO Workflow SS Sodium [Moles/Vol] 136 mmol/L Normal 136 - 145 mmol/L AO ADM SS Urea nitrogen [Mass/Vol] 11 mg/dL Normal 7 - 18 mg/dL AO ADM SS Urea nitrogen/Creatinine [Mass ratio] 12 ratio Normal 7 - 27 ratio AO ADM SS WBC (Bld) [#/Vol] 7.3 103/mcL Normal 4.6 - 10.8 10^3/mcL AO Workflow SS LIPon 10-03-2023 Lipase Level 31 U/L Normal 16-77 [facility] ([place]) Comment on above: Performed By: #### C BC, JILLIAN, NIKKI, MDW, LIP, GFR, CMP #### [address] [address] Basophil percentageOrdered B y: Sarai Sosa on 09-05-2023 Basophil percentage 2.8 mg/dL 2.5-4.9 [facility] Chloride [Moles/Vol] 110 mmol/L 98-107 [facility] Glucose [Mass/Vol] 92 mg/dL 74-106 [facility] Potassium [Moles/Vol] 3.6 mmol/L 3.5-5.1 [facility] Sodium [Moles/Vol] 142 mmol/L 136-145 [facility] Bilirubin Test strip Ql (U)O rdered By: Sarai Sosa on 09-05-2023 Bilirubin Ql (U) Negative Negative [facility] Ketones Test strip Ql (U)Ord ered By: Sarai Sosa on 09-05-2023 Ketones Ql (U) Negative Negative [facility] Laboratory - Chemistry and C hemistry - challengeOrdered By: Sarai Sosa on 09-05-2023 CO2 [Moles/Vol] 26.0 mmol/L 21.0-32.0 [facility] Free T4 [Mass/Vol] 0.92 ng/dL 0.76-1.46 [facility] Urea nitrogen/Creatinine [Mass ratio] 8.2 mg/mg 10-20 [facility] Nitrite Test strip Ql (U)Ord ered By: Sarai Sosa on 09-05-2023 Nitrite Ql (U) Negative Negative [facility] No Panel InformationOrdered By: Sarai Sosa on 09-05-2023 Estimated GFR (MDRD) Amer 114 mL/min >60 [facility] Comment on above: GFR Calc Estimated GFR (MDRD) Non-Af Amer 94 mL/min >60 [facility] Comment on above: Non- GFR Calc Thyroid Stimulating Hormone (TSH) 2.21 uIU/mL 0.358-3.74 [facility] Protein Test strip Ql (U)Ord ered By: Sarai Sosa on 09-05-2023 Protein Ql (U) Negative Negative [facility] Serum or plasma albumin tori urement (mass/volume)Ordered By: Sarai Sosa on 09-05-2023 Albumin [Mass/Vol] 3.9 g/dL 3.2-5.0 [facility] Serum or plasma calcium tori urement (mass/volume)Ordered By: Sarai Sosa on 09-05-2023 Calcium [Mass/Vol] 8.5 mg/dL 8.5-10.1 [facility] Serum or plasma creatinine m easurement (mass/volume)Ordered By: Sarai Sosa on 09-05-2023 Creatinine [Mass/Vol] 0.73 mg/dL 0.55-1.02 [facility] Comment on above: The validity of the calculated GFR & GFRAA in patients over 70 years has not been determined. Clinical correlation is essential. Serum or plasma urea nitroge n measurement (mass/volume)Ordered By: Sarai Sosa on 09-05-2023 Urea nitrogen [Mass/Vol] 6 mg/dL 7-18 [facility] Urine blood detectionOrdered By: Sarai Sosa on 09-05-2023 RBC Ql (U) Negative Negative [facility] Urine clarityOrdered By: Florecita Sosa on 09-05-2023 Clarity (U) Clear Clear [facility] Urine color determinationOrd ered By: Sarai Sosa on 09-05-2023 Color (U) Yellow Yellow [facility] Urine glucose detectionOrder ed By: Sarai Sosa on 09-05-2023 Glucose Ql (U) Normal mg/dl Normal [facility] Urine leukocyte esterase det ection by dipstickOrdered By: Sarai Sosa on 09-05-2023 Leukocyte esterase Test strip Ql (U) 25 /ul Negative [facility] Urine pHOrdered By: Ivette Sosa on 09-05-2023 pH (U) 7.0 [pH] 5.0 - 8.0 [facility] Urine specific gravity measu rementOrdered By: Sarai Sosa on 09-05-2023 Specific gravity (U) [Rel density] 1.020 1.002-1.03 0 [facility] Urobilinogen Auto test strip Ql (U)Ordered By: Sarai Sosa on 09-05-2023 Urobilinogen Ql (U) Normal mg/dl Normal [facility] Basophil percentageOrdered B y: Dr. Sosa on 01-11-2023 Chloride [Moles/Vol] 107 mmol/L 98-107 [facility] Glucose [Mass/Vol] 83 mg/dL 74-106 [facility] Potassium [Moles/Vol] 4.5 mmol/L 3.5-5.1 [facility] Sodium [Moles/Vol] 138 mmol/L 136-145 [facility] Laboratory - Chemistry and C hemistry - challengeOrdered By: Dr. Sosa on 01-11-2023 CO2 [Moles/Vol] 22.0 mmol/L 21.0-32.0 [facility] Urea nitrogen/Creatinine [Mass ratio] 8.3 mg/mg 10-20 [facility] No Panel InformationOrdered By: Dr. Sosa on 01-11-2023 Estimated GFR (MDRD) Amer 97 mL/min >60 [facility] Comment on above: GFR Calc Estimated GFR (MDRD) Non-Af Amer 80 mL/min >60 [facility] Comment on above: Non- GFR Calc Serum or plasma calcium tori urement (mass/volume)Ordered By: Dr. Sosa on 01-11-2023 Calcium [Mass/Vol] 9.9 mg/dL 8.5-10.1 [facility] Serum or plasma creatinine m easurement (mass/volume)Ordered By: Dr. Sosa on 01-11-2023 Creatinine [Mass/Vol] 0.84 mg/dL 0.55-1.02 [facility] Comment on above: The validity of the calculated GFR & GFRAA in patients over 70 years has not been determined. Clinical correlation is essential. Serum or plasma urea nitroge n measurement (mass/volume)Ordered By: Dr. Sosa on 01-11-2023 Urea nitrogen [Mass/Vol] 7 mg/dL 7-18 [facility] Thin prep Papanicolaou smear with manual screeningOrdered By: Dr. Sosa on 01-11-2023 Thin prep Papanicolaou smear with manual screening 9 5-15 [facility] CNOVon 12-30-2022 CNOV Office Visit (UCWSTR ) -- MALISSA ELLIOTT ([id number]) 1985 F Date Time Provider Department 12/30/22 9:15 AM JIM PLA[facility] During your visit today, we recorded the following information about you: Temperature Pulse Respiration Blood pressure 98.6 degrees 86/minute 18/minute 142/94 Weight 79.5 kg Jim Plaza MD 12/30/2022 10:52 AM Signed Patient presents with: Pain: Pt reported (RT) facial /gum swelling x2 days. HPI: Dental pain: Duration: 3 days Location: right upper outer gum by the molars Character: sore Radiation: No. Aggravating: chewing Associated: right cheeks is swelling now Pertinent negatives: Denies fever, chills, malaise, body aches, tooth pain PAST MEDICAL HISTORY Diagnosis Date Hypertension Overweight(278.02) Fkxet-Mjakhewon-Rsxim (WPW) pattern MEDICATIONS: Current Outpatient Medications Medication [...] TABLET Plans to follow-up with dentist. Jim Plaza MD Allergies As of Date: 12/30/2022 Noted Allergy Reaction IODINATED CONTRAST MEDIA 03/22/2022 9 - Itching IODINE 2022 9 - Itching Date Reviewed: 12/30/2022 Reviewed by: Elizabeth Ramos LPN - Fully Assessed Reason for Visit: Pain [78] Cmt: Pt reported (RT) facial /gum swelling x2 days. Primary Visit Diagnosis:Dental infection [K04.7] Order(s):amoxicillin (AMOXIL) 875 mg tabletTake 1 tablet by mouth twice daily for 5 days.Disp: 10 tabletRfl: 0 Prescriptions as of 12/30/2022 - amoxicillin (AMOXIL) 875 mg tablet Take 1 tablet by mouth twice daily for 5 days. - aMILoride (MIDAMOR) 5 mg tablet Take 15 mg by mouth once daily. - hydrALAZINE (APRESOLINE) 25 mg tablet TAKE 1 TABLET BY MOUTH THREE TIMES A DAY FOR 90 DAYS - cloNIDine TTS (CATAPRES-TTS) 0.3 mg/24 hr apply 1 patch every week for 28 DAYS - verapamil SR (CALAN SR, ISOPTIN SR) 120 mg CR tablet Take 120 mg by mouth once daily. Problem List As Of Date 12/30/2022 Noted Resolved Overweight [E66.3] 01/15/2013 Hypertension [I10] 01/15/2013 Right hand paresthesia [R20.2] 12/05/2013 Serous otitis media [H65.90] 12/05/2013 Prescriptions ordered this encounter Disp Refills Start End AMOXICILLIN 875 MG TABLET 10 t* 0 12/30/2022 01/04/2023 Route: ORAL Sig: Take 1 tablet by mouth twice daily for 5 days. Medications Discontinued During This Encounter Prescriptions - SOTALOL HCL (SOTALOL ORAL) (Discontinued) Take by mouth. - predniSONE (DELTASONE) 20 mg tablet (Discontinued) Take 1 tablet by mouth daily for 5 days. - lisinopril (ZESTRIL, PRINIVIL) 10 mg tablet (Discontinued) No sig reported - sertraline (ZOLOFT) 25 mg tablet (Discontinued) Take 25 mg by mouth twice daily. - triamterene-hydroCHLOROthi azide (MAXZIDE-25) 37.5-25 mg per tablet (Discontinued) Take 1 tablet by mouth once daily. - flecainide (TAMBOCOR) 50 mg tablet (Discontinued) Take 50 mg by mouth q 12 HR. Encounter Status:Closed by JIM PLAZA on 12/30/22 [facility] CHEST 2 VIEWon 09-21-2022 CHEST 2 VIEW *FINAL Date of Service: 09/21/2022 07:24 Adm #: [id number] Reading Dr:BRIANNE RICKS Signoff Dr: BRIANNE RICKS PROCEDURE: CHEST 2 VIEW - WXR 0020 REASON FOR EXAM: 1 st rib resection RESULT: Patient Name: MALISSA ELLIOTT STUDY: CHEST 2 VIEW 09/21/2022 7:24 am INDICATION: Status post resection of left 1st rib COMPARISON: 09/20/2022 ACCESSION NUMBER(S): [id number] ORDERING CLINICIAN: DANY SPENCE TECHNIQUE: PA and lateral views of the chest were acquired. FINDINGS: There has been resection of the left 1st rib with some new left basilar platelike atelectasis seen. Pleural reaction is identified at the apex of the left hemithorax. This appears a little more pronounced. The right lung is clear. The cardiac size is normal. IMPRESSION: Status post resection of right 1st rib with increased pleural reaction at the apex of the left hemithorax and with new left basilar platelike atelectasis identified. Dictation workstation: [id number] Original Interpreting Physician: BRIANNE RICKS M.D. Original Transcribed by/Date: MMODAL Sep 20 2022 3:52P Original Electronically Signed by/Date: BRIANNE RICKS M.D. Sep 21 2022 10:19A Addendum Interpreting Physician: Addendum Transcribed by/Date: NO ADDENDUM Addendum Electronically Signed by/Date: [facility] No Panel Informationon 09-21 XR Chest 2 Views (PA and lat) (Reference Range: not available) *FINAL Date of Service: 09/21/2022 07:24 Adm #: [id number] Reading Dr:BRIANNE RICKS Signoff Dr: BRIANNE RICKS PROCEDURE: CHEST 2 VIEW - WXR 0020 REASON FOR EXAM: 1 st rib resection RESULT: Patient Name: MALISSA ELLIOTT STUDY: CHEST 2 VIEW 09/21/2022 7:24 am INDICATION: Status post resection of left 1st rib COMPARISON: 09/20/2022 ACCESSION NUMBER(S): [id number] ORDERING CLINICIAN: DANY SPENCE TECHNIQUE: PA and lateral views of the chest were acquired. FINDINGS: There has been resection of the left 1st rib with some new left basilar platelike atelectasis seen. Pleural reaction is identified at the apex of the left hemithorax. This appears a little more pronounced. The right lung is clear. The cardiac size is normal. IMPRESSION: Status post resection of right 1st rib with increased pleural reaction at the apex of the left hemithorax and with new left basilar platelike atelectasis identified. Dictation workstation: [id number] Original Interpreting Physician: BRIANNE RICKS M.D. Original Transcribed by/Date: MMODAL Sep 20 2022 3:52P Original Electronically Signed by/Date: BRIANNE RICKS M.D. Sep 21 2022 10:19A Addendum Interpreting Physician: Addendum Transcribed by/Date: NO ADDENDUM Addendum Electronically Signed by/Date: [facility] [place] CHEST PORTABLEon 09-20-2022 CHEST PORTABLE *FINAL Date of Service: 09/20/2022 16:43 Adm #: [id number] Reading Dr:CHARLES Garza Dr: CHARLES HU PROCEDURE: CHEST PORTABLE - WXR 0018 REASON FOR EXAM: first rib resection RESULT: Patient Name: MALISSA ELLIOTT STUDY: CHEST PORTABLE; 09/20/2022 4:43 pm INDICATION: CLINICAL INFORMATION: Left first rib resection. COMPARISON: None ACCESSION NUMBER(S): [id number] ORDERING CLINICIAN: DANY SPENCE TECHNIQUE: Portable chest 1631 hours FINDINGS: The cardiac size is indeterminate in view of the AP projection. Left 1st rib is absent with surgical clips or sutures overlying the supraclavicular fossa on the left. There is no evidence for pneumothorax. There is a thoracic levoscoliosis. There is slight asymmetry with slightly greater tissue density of the right hemithorax compared to the left although this is of uncertain significance. Two view chest series is recommended if and when the patient can tolerate for further assessment. No definite infiltrates or effusions are identified. IMPRESSION: A two view chest series is recommended for 1 the patient can tolerate. No evidence for pneumothorax. Slightly greater density of the right hemithorax compared to the left but the etiology for this is not clear from this exam. Patient is currently scheduled for an additional two view chest radiograph on 09/21/2022 at 0800 hours. Dictation workstation: [id number] Original Interpreting Physician: CHARLES HU M.D. Original Transcribed by/Date: MMODAL Sep 20 2022 4:16P Original Electronically Signed by/Date: CHARLES HU M.D. Sep 20 2022 9:54P Addendum Interpreting Physician: Addendum Transcribed by/Date: NO ADDENDUM Addendum Electronically Signed by/Date: [facility] No Panel Informationon 09-20 XR Chest Portable (1 view) (Reference Range: not available) *FINAL Date of Service: 09/20/2022 16:43 Adm #: [id number] Reading Dr:CHARLES Garza Dr: CHARLES HU PROCEDURE: CHEST PORTABLE - WXR 0018 REASON FOR EXAM: first rib resection RESULT: Patient Name: MALISSA ELLIOTT STUDY: CHEST PORTABLE; 09/20/2022 4:43 pm INDICATION: CLINICAL INFORMATION: Left first rib resection. COMPARISON: None ACCESSION NUMBER(S): [id number] ORDERING CLINICIAN: DANY SPENCE TECHNIQUE: Portable chest 1631 hours FINDINGS: The cardiac size is indeterminate in view of the AP projection. Left 1st rib is absent with surgical clips or sutures overlying the supraclavicular fossa on the left. There is no evidence for pneumothorax. There is a thoracic levoscoliosis. There is slight asymmetry with slightly greater tissue density of the right hemithorax compared to the left although this is of uncertain significance. Two view chest series is recommended if and when the patient can tolerate for further assessment. No definite infiltrates or effusions are identified. IMPRESSION: A two view chest series is recommended for 1 the patient can tolerate. No evidence for pneumothorax. Slightly greater density of the right hemithorax compared to the left but the etiology for this is not clear from this exam. Patient is currently scheduled for an additional two view chest radiograph on 09/21/2022 at 0800 hours. Dictation workstation: [id number] Original Interpreting Physician: CHARLES HU M.D. Original Transcribed by/Date: [facility] Sep 20 2022 4:16P Original Electronically Signed by/Date: CHARLES HU M.D. Sep 20 2022 9:54P Addendum Interpreting Physician: Addendum Transcribed by/Date: NO ADDENDUM Addendum Electronically Signed by/Date: [facility] 09-20-2022 [facility] Patient Name: MALISSA ELLIOTT MR#: [id number] Specimen #[id number] Source: 1: 1st rib Gross Description Received fresh labeled with the patient's name and designated, first rib is a 1.8 x 1.6 x 0.5 cm amputated portion of flat bone. The cut surfaces are dense, medina, and trabeculated. The specimen is entirely submitted in one cassette. Decalcified. Microscopic Description Slides examined; description omitted. Procedures/Addenda Final Diagnosis LEFT FIRST RIB, EXCISION: SKELETAL MUSCLE AND BONE, CLINICALLY THORACIC OUTLET SYNDROME. Electronically Signed Out By KELLE VASQUES M.D. [facility] Comment on above: Performed By: #### [id number] #### [place] [address] [facility] [place] [address] BASIC METABOLIC PANELon 11-1 Anion gap [Moles/Vol] 14 mmol/L Normal 0-19 [facility] Comment on above: Performed By: #### B MP #### [facility] [place] [address] [facility] [place] [address] Calcium [Mass/Vol] 9.5 mg/dL Normal 8.5-10.[address] [facility] Comment on above: Performed By: #### B MP #### [facility] [place] [address] [place] [address] Chloride [Moles/Vol] 104 mmol/L Normal 97-107 [facility] Comment on above: Performed By: #### B MP #### [facility] [address] [place] [address] CO2 [Moles/Vol] 22 mmol/L Low 24-31 [facility] Comment on above: Performed By: #### B MP #### [facility] [place] [address] [facility] [place] [address] Creatinine [Mass/Vol] 0.8 mg/dL Normal 0.4-1.6 [facility] Comment on above: Performed By: #### B MP #### [facility] [place] [address] [facility] [place] [address] ESTIMATED GFR 97 mL/min/1.73 m2 [facility] Comment on above: Result Comment: CALCULATIONS OF ESTIMATED GFR ARE PERFORMED USING THE 2020 CKD-EPI STUDY REFIT EQUATION WITHOUT THE RACE VARIABLE FOR THE IDMS-TRACEABLE CREATININE METHODS. https://jasn.asnjournals.org/content//ASN.61263 [address] Performed at [address] [place] [address] Performed By: #### B MP #### [facility] [place] [address] [place] [address] Glucose [Mass/Vol] 77 mg/dL Normal 65-99 [facility] Comment on above: Performed By: #### B MP #### Main Laboratory [facility] [address] [place] [address] Potassium [Moles/Vol] 4.3 mmol/L Normal 3.4-5.1 [facility] Comment on above: Performed By: #### B MP #### [facility] [address] [facility] [place] [address] Sodium [Moles/Vol] 140 mmol/L Normal 133-[address] [facility] Comment on above: Performed By: #### B MP #### [facility] [address] [place] [address] Urea nitrogen [Mass/Vol] 7 mg/dL Low 8- [facility] Comment on above: Performed By: #### B MP #### [facility] [address] [place] [address] Urea nitrogen/Creatinine [Mass ratio] 8.8 mg/mg Normal 8- [facility] Comment on above: Performed By: #### B MP #### [facility] [address] [place] [address] CBC with Diffon 09-18-2022 AB IMMATURE NEUT 0.04 K/UL Normal 0.0-0.1 [facility] Comment on above: Performed By: #### C BCD #### [facility] [address] [facility] [place] [address] ABS BASO 0.03 K/UL Normal 0.00-0.22 [facility] Comment on above: Performed By: #### C BCD #### [facility] [address] [place] [address] ABS EOS 0.02 K/UL Normal 0-0.45 [facility] Comment on above: Performed By: #### C BCD #### [facility] [address] [place] [address] ABS NEUTROPHILS 9.45 K/UL High 1.8-7.7 [facility] Comment on above: Performed By: #### C BCD #### [facility] [address] [place] [address] ABS.NEUT.CALCULATED 9.45 K/UL Normal [facility] Comment on above: Result Comment: Perf ormed at [address] [address] [place] [place] [address] Performed By: #### C BCD #### [address] [address] [place] [address] Basophils/100 WBC (Bld) 0.20 % Normal 0-1 [facility] Comment on above: Performed By: #### C BCD #### [facility] [address] [address] [facility] [facility] [address] DIFF TYPE AUTO DIFF Normal [facility] Comment on above: Performed By: #### C BCD #### [address] [address] [facility] [place] [address] Eosinophils/100 WBC (Bld) 0.20 % Normal 0-3 [facility] Comment on above: Performed By: #### C BCD #### [address] [address] [place] [address] Erythrocyte distribution width (RBC) [Ratio] 13.5 % Normal 11.7-15.0 [facility] Comment on above: Performed By: #### C BCD #### [address] [address] María Cazares [facility] [place] [address] Hematocrit (Bld) [Volume fraction] 46.3 % High 36-44 [facility] Comment on above: Performed By: #### C BCD #### [address] [address] [place] [address] Hemoglobin (Bld) [Mass/Vol] 15.4 g/dL High 12.0-15.0 [facility] Comment on above: Performed By: #### C BCD #### [address] [address] [place] [address] Lymphocytes (Bld) [#/Vol] 2.34 10*3/uL Normal 1.2-3.2 [facility] Comment on above: Performed By: #### C BCD #### [address] [address] [place] [address] Lymphocytes/100 WBC (Bld) 18.50 % Low 20-40 [facility] Comment on above: Performed By: #### C BCD #### [address] [address] [place] [address] MCH (RBC) [Entitic mass] 30.0 pg Normal 26-34 [facility] Comment on above: Performed By: #### C BCD #### [facility] [address] [address] [place] [place] [address] MCHC 33.3 % Normal 31-37 [facility] Comment on above: Performed By: #### C BCD #### [facility] [address] [address] [place] [address] MCV (RBC) [Entitic vol] 90.3 fL Normal 80-100 [facility] Comment on above: Performed By: #### C BCD #### [address] [address] [place] [address] MEAN PLT VOL 10.9 CU Normal 7.0-12.6 [facility] Comment on above: Performed By: #### C BCD #### [address] [address] [place] [address] Monocytes (Bld) [#/Vol] 0.80 10*3/uL Normal 0-0.8 [facility] Comment on above: Performed By: #### C BCD #### [address] [address] [place] [place] [address] Monocytes/100 WBC (Bld) 6.30 % Normal 0-8 [facility] Comment on above: Performed By: #### C BCD #### [address] [address] [place] [place] [address] Neutrophils/100 WBC (Bld) 0.30 % Normal 0.0-1.0 [facility] Comment on above: Performed By: #### C BCD #### [address] [address] [place] [place] [address] Neutrophils/100 WBC (Bld) 74.50 % High 50-70 [facility] Comment on above: Performed By: #### C BCD #### [facility] [address] [address] [place] [address] NRBC'S 0 /100 WBC Normal 0 [facility] Comment on above: Performed By: #### C BCD #### [facility] [address] [address] Platelets (Bld) [#/Vol] 296 10*3/uL Normal 150-450 [facility] Comment on above: Performed By: #### C BCD #### [address] [address] RBC (Bld) [#/Vol] 5.13 10*6/uL High 4.0-4.9 [facility] Comment on above: Performed By: #### C BCD #### [address] [address] RDW-SD 45.3 FL Normal 37.0-54.0 [facility] Comment on above: Performed By: #### C BCD #### [address] [address] WBC (Bld) [#/Vol] 12.7 10*3/uL High 4.5-11.0 [facility] Comment on above: Performed By: #### C BCD #### [address] [address] EKGon 09-18-2022 Electrocardiogram EKG Ventricular Rate : 65 BPM Atrial Rate : 65 BPM P-R Interval : 126 ms QRS Duration : 78 ms Q-T Interval : 422 ms QTC Calculation(Bazett) : 438 ms Calculated P [place] : 74 degrees Calculated R [place] : 12 degrees Calculated T [place] : 45 degrees Diagnosis:Normal sinus rhythm Normal ECG No previous ECGs available Confirmed by JAMEL COFFMAN ([id number]) on 09/18/2022 6:12:52 PM [facility] TYPE AND SCREENon 09-18-2022 TYPE AND SCREEN BLOOD COMPONENT TYPE - RED CELL GROUP UNITS ORDERED - 0 SPECIMEN EXPIRATION - 09/23/2022 ABO/RH(D) - O POSITIVE ANTIBODY SCREEN - NEGATIVE ARM BAND NUMBER - [id number] SURGERY DATE - 09/20/2022 [place] TEST ORDERED - TYPE AND SCREEN PT TRANSFUSION HISTORY - BLOOD BANK RECORD SEARCH COMPLETED NO PREVIOUS RECORD NO PREVIOUS TRANSFUSIONS IN LIFETIME Performed at [address] [address] [facility] Comment on above: Performed By: #### T YSC #### [facility] [address] [place] [place] [address] Progress Noteon 07-19-2022 [employer] Authentication Interface Message Text [facility] Genetics New Patient Note Reason for Consult/Chief Concern: Malissa Elliott is a 37 y.o. 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 Primary Care Doctor: No primary care provider on file. History of Present Illness (Location, Quality, Severity, Duration, Timing, Context. Modifying Factors, Associated Signs & Symptoms): Malissa Elliott is a 37 y.o. female who is being seen today for genetic evaluation of the above. Malissa Elliott provided the medical history today. I also reviewed her chart. 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 I do not have aldosterone level or arginine activity at this point. Malissa reports her manager aerospace is considering Juan J syndrome and has been managing her with Chlorthiazide and amiloride. She has Hx of using different medications for high blood pressure that did not lead to a good control. Her blood pressure has been better controlled with the above two medications but she still needed frequent increase in dose to achieve a better control. Florencias blood pressure today is high at 156/112. Chart review summary: Hx of chest pain and shortness of breath in 10/2012: seen in the ED, elevated troponin, chest CT was negative for any pulmonary embolus. History of high blood pressure since 2012. Had follow up with PCP for management. 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 Stress echo was normal at that time. She subsequently had EPS that were normal. She also did undergo a 30-day event monitor which demonstrated sinus rhythm/sinus bradycardia/sinus tachycardia. She still follow with cardiology and is taking verapamil. Reviewed labs. Hx of low potassium (3.2-3.4). she has no Hx of metabolic alkalosis. In fact, she had mild anion gap metabolic acidosis on multiple occasions. No renin or aldosterone levels in the system. 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 Surgery: Reviewed No past surgical history on file. HYSTERECTOMY SUBTOTAL ABDOMINAL LAPAROSCOPIC TUBAL LIGATION Social History: Tobacco Use Smoking status: Occasionally. Trying to quit and lives with children and Works in [employer] Medications: Reviewed Current Outpatient Medications on File Prior to Visit Medication Sig Dispense Refill cloNIDine (CATAPRES) 0.1 MG tablet TAKE 1 TABLET BY MOUTH TWICE A DAY NEEDED aMILoride (MIDAMOR) 5 MG tablet Take 1 Tablet (5 mg) by mouth 4 times daily gabapentin (NEURONTIN) 300 MG capsule TAKE 1 CAPSULE BY MOUTH THREE TIMES A DAY hydrALAZINE (APRESOLINE) 25 MG tablet TAKE 1 TABLET BY MOUTH THREE TIMES A DAY FOR 90 DAYS verapamil (CALAN-SR) 180 MG CR tablet Take 1 Tablet (180 mg) by mouth 2 times daily No current facility-administered medications on file prior to visit. ALLERGIES Reviewed No Known Allergies FAMILY HISTORY Reviewed Offspring: Malissa has two boys aged 20 and 17 and one daughter who is 14. The 17-year-old son is being monitored for possible high blood pressure. Siblings: on full sister with Hx of hypokalemia but normal BP. She is 41. One maternal half sister who is alive and well at the age of 22. Dad: at the age of 63 of massive heart attack. Had Hx of high blood pressure since early adulthood. His 69-year-old brother also with Hx of high blood pressure and heart attack. Also had coronary stents. Another brother in his 50s with similar history. His father in his 80s of heart issues and his mother is in her 80s and has Hx of heart attacks. Mom: No Hx of high blood pressure. She is 67. Her father at the age of 68 of heart attack and had Hx of high blood pressure. Her mother is 92 and has Hx of dementia and breast cancer. For more details, please see the scanned pedigree. IMAGING/ OTHER INVESTIGATIONAL STUDIES Echo on 03/02/2021: 1. Left ventricle: The cavity size is normal. Wall thickness is normal. Systolic function is by the biplane method of disks. The estimated ejection fraction is 70%. There are no regional wall motion abnormalities. Left ventricular diastolic function parameters are normal. 2. Right ventricle: The cavity size is normal. Systolic function is normal. There is no evidence for free wall thinning nor aneurysmal dilatation. 3. No significant valve disease. EPS on 05/28/2014: 1. Bas (more content not included)... Normal [facility] Basophil percentageon 2021 Chloride [Moles/Vol] 110 mmol/L 98-107 [facility] Work Phone: Glucose [Mass/Vol] 97 mg/dL 74-106 [facility] Work Phone: Potassium [Moles/Vol] 3.7 mmol/L 3.5-5.1 [facility] Work Phone: Sodium [Moles/Vol] 139 mmol/L 136-145 [facility] Work Phone: Laboratory - Chemistry and C hemistry - challengeon 04-21-2022 CO2 [Moles/Vol] 22.0 mmol/L 21.0-32.0 [facility] Work Phone: Urea nitrogen/Creatinine [Mass ratio] 11.5 mg/mg 10-20 [facility] Work Phone: No Panel Informationon 04-21 Estimated GFR (MDRD) Amer 106 mL/min >60 [facility] Work Phone: Comment on above: GFR Calc Estimated GFR (MDRD) Non-Af Amer 88 mL/min >60 [facility] Work Phone: Comment on above: Non- GFR Calc Serum or plasma calcium tori urement (mass/volume)on 04-21-2022 Calcium [Mass/Vol] 8.8 mg/dL 8.5-10.1 [facility] Work Phone: Serum or plasma creatinine m easurement (mass/volume)on 04-21-2022 Creatinine [Mass/Vol] 0.78 mg/dL 0.55-1.02 [facility] Work Phone: Comment on above: The validity of the calculated GFR & GFRAA in patients over 70 years has not been determined. Clinical correlation is essential. Serum or plasma urea nitroge n measurement (mass/volume)on 04-21-2022 Urea nitrogen [Mass/Vol] 9 mg/dL 7-18 [facility] Work Phone: Thin prep Papanicolaou smear with manual screeningon 04-21-2022 Thin prep Papanicolaou smear with manual screening 7 5-15 [facility] Work Phone: Basophil percentageon 2021 Chloride [Moles/Vol] 113 mmol/L 98-107 [facility] Work Phone: Glucose [Mass/Vol] 92 mg/dL 74-106 [facility] Work Phone: Potassium [Moles/Vol] 3.6 mmol/L 3.5-5.1 [facility] Work Phone: Sodium [Moles/Vol] 139 mmol/L 136-145 [facility] Work Phone: Laboratory - Chemistry and C hemistry - challengeon 03-26-2022 CO2 [Moles/Vol] 19.0 mmol/L 21.0-32.0 [facility] Work Phone: Urea nitrogen/Creatinine [Mass ratio] 7.9 mg/mg 10-20 [facility] Work Phone: No Panel Informationon 03-26 Estimated Creatinine Clearance Calc 85.12 ml/min [facility] Work Phone: Estimated GFR (MDRD) Amer 92 mL/min >60 [facility] Work Phone: Comment on above: GFR Calc Estimated GFR (MDRD) Non-Af Amer 76 mL/min >60 [facility] Work Phone: Comment on above: Non- GFR Calc Serum or plasma calcium tori urement (mass/volume)on 03-26-2022 Calcium [Mass/Vol] 8.8 mg/dL 8.5-10.1 [facility] Work Phone: Serum or plasma creatinine m easurement (mass/volume)on 03-26-2022 Creatinine [Mass/Vol] 0.88 mg/dL 0.55-1.02 [facility] Work Phone: Comment on above: The validity of the calculated GFR & GFRAA in patients over 70 years has not been determined. Clinical correlation is essential. Serum or plasma urea nitroge n measurement (mass/volume)on 03-26-2022 Urea nitrogen [Mass/Vol] 7 mg/dL 7-18 [facility] Work Phone: Thin prep Papanicolaou smear with manual screeningon 03-26-2022 Thin prep Papanicolaou smear with manual screening 7 5-15 [facility] Work Phone: Basophil percentageon 2021 Basophil percentage 3.4 mg/dL 2.5-4.9 [facility] Work Phone: Chloride [Moles/Vol] 110 mmol/L 98-107 [facility] Work Phone: Glucose [Mass/Vol] 90 mg/dL 74-106 [facility] Work Phone: Potassium [Moles/Vol] 4.2 mmol/L 3.5-5.1 [facility] Work Phone: Sodium [Moles/Vol] 139 mmol/L 136-145 [facility] Work Phone: Laboratory - Chemistry and C hemistry - challengeon 03-16-2022 CO2 [Moles/Vol] 24.0 mmol/L 21.0-32.0 [facility] Work Phone: Urea nitrogen/Creatinine [Mass ratio] 13.6 mg/mg 10-20 [facility] Work Phone: No Panel Informationon 03-16 Estimated GFR (MDRD) Amer 92 mL/min >60 [facility] Work Phone: Comment on above: GFR Calc Estimated GFR (MDRD) Non-Af Amer 76 mL/min >60 [facility] Work Phone: Comment on above: Non- GFR Calc Serum or plasma albumin tori urement (mass/volume)on 03-16-2022 Albumin [Mass/Vol] 4.0 g/dL 3.2-5.0 [facility] Work Phone: Serum or plasma calcium tori urement (mass/volume)on 03-16-2022 Calcium [Mass/Vol] 9.3 mg/dL 8.5-10.1 [facility] Work Phone: Serum or plasma creatinine m easurement (mass/volume)on 03-16-2022 Creatinine [Mass/Vol] 0.88 mg/dL 0.55-1.02 [facility] Work Phone: Comment on above: The validity of the calculated GFR & GFRAA in patients over 70 years has not been determined. Clinical correlation is essential. Serum or plasma urea nitroge n measurement (mass/volume)on 03-16-2022 Urea nitrogen [Mass/Vol] 12 mg/dL 7-18 [facility] Work Phone: Basophil percentageon 2021 Chloride [Moles/Vol] 108 mmol/L 98-107 [facility] Work Phone: Glucose [Mass/Vol] 74 mg/dL 74-106 [facility] Work Phone: Potassium [Moles/Vol] 4.1 mmol/L 3.5-5.1 [facility] Work Phone: Comment on above: Moderate Hemolysis, Result may be falsely increased. Sodium [Moles/Vol] 137 mmol/L 136-145 [facility] Work Phone: Laboratory - Chemistry and C hemistry - challengeon 11-24-2021 CO2 [Moles/Vol] 23.0 mmol/L 21.0-32.0 [facility] Work Phone: Urea nitrogen/Creatinine [Mass ratio] 9.3 mg/mg 10-20 [facility] Work Phone: No Panel Informationon 11-24 Estimated GFR (MDRD) Amer 96 mL/min >60 [facility] Work Phone: Comment on above: GFR Calc Estimated GFR (MDRD) Non-Af Amer 79 mL/min >60 [facility] Work Phone: Comment on above: Non- GFR Calc Serum or plasma calcium tori urement (mass/volume)on 11-24-2021 Calcium [Mass/Vol] 8.9 mg/dL 8.5-10.1 [facility] Work Phone: Serum or plasma creatinine m easurement (mass/volume)on 11-24-2021 Creatinine [Mass/Vol] 0.86 mg/dL 0.55-1.02 [facility] Work Phone: Comment on above: The validity of the calculated GFR & GFRAA in patients over 70 years has not been determined. Clinical correlation is essential. Serum or plasma urea nitroge n measurement (mass/volume)on 11-24-2021 Urea nitrogen [Mass/Vol] 8 mg/dL 7-18 [facility] Work Phone: Thin prep Papanicolaou smear with manual screeningon 11-24-2021 Thin prep Papanicolaou smear with manual screening 6 5-15 [facility] Work Phone: ECHO Complete 2D W Doppler W ColorOrdered By: Omid Sky on 03-02-2021 TRANSTHORACIC ECHOCARDIOGRAM PATIENT: Malissa Elliott STUDY DATE: 03/02/2021 : 1985 AGE: 35 HT/WT: 165.1 cm (65 81.7 kg in) (179.6 lb) GENDER: F BP: 138 / 94 LOCATION: [facility] PATIENT Outpatient [facility] STATUS: *ORDERING PHYSICIAN: * Omid Sky MD *READING PHYSICIAN: * Shyann HowardSHOP MANAGER: * Sharon Salazar MD [facility] INDICATIONS: HYPERTENSIVE HEART DISEASE WITHOUT FAILURE, HX VT AND ARRHYTHMIA. CONCLUSIONS SUMMARY: 1. Left ventricle: The cavity size is normal. Wall thickness is normal. Systolic function is by the biplane method of disks. The estimated ejection fraction is 70%. There are no regional wall motion abnormalities. Left ventricular diastolic function parameters are normal. 2. Right ventricle: The cavity size is normal. Systolic function is normal. There is no evidence for free wall thinning nor aneurysmal dilatation. 3. No significant valve disease. STUDY DATA: Complete transthoracic echocardiogram. Procedure: Image quality was suboptimal. The study was technically limited due to poor acoustic window availability and body habitus. Intravenous imaging enhancement (Definity) was administered to opacify the chamber. Definity lot #: [id number]. M-mode, complete 2D, complete spectral Doppler, and color flow Doppler images were acquired and archived for permanent storage and are available for subsequent review. Study status: Routine. Patient status: Outpatient. ECG RHYTHM: NSR FINDINGS LEFT VENTRICLE: The cavity size is normal. Wall thickness is normal. Systolic function is by the biplane method of disks. The estimated ejection fraction is 70%. There are no regional wall motion abnormalities. Left ventricular diastolic function parameters are normal. RIGHT VENTRICLE: The cavity size is normal. Systolic function is normal. There is no evidence for free wall thinning nor aneurysmal dilatation. Right ventricular systolic pressure is within the normal range. VENTRICULAR SEPTUM: There is no evidence of a ventricular septal defect. LEFT ATRIUM: The atrium is normal in size. RIGHT ATRIUM: The atrium is normal in size. ATRIAL SEPTUM: Color Doppler shows no shunt. MITRAL VALVE: Structurally normal valve. Doppler: There is trivial, less than 1+ regurgitation. The peak diastolic gradient is 2 mm Hg. AORTIC VALVE: Not well visualized. Structurally normal valve. Probably trileaflet. Doppler: There is no regurgitation. TRICUSPID VALVE: Structurally normal valve. Doppler: There is trivial, less than 1+ regurgitation. PULMONIC VALVE: Structurally normal valve. Doppler: There is trivial, less than 1+ regurgitation. AORTA: The aorta is well visualized, normal, and normal size. PULMONARY ARTERY: Main pulmonary artery: Normal. PERICARDIUM: There is no pericardial effusion. SYSTEMIC VEINS: Well visualized. Inferior vena cava: The vessel is normal. The IVC collapses by greater than 50% with inspiration. Measurements Value Reference Aortic root ID 3.2 cm <3.6 Aortic root ID, STJ, ED 2.4 cm 2.0 - 3.2 Aortic root ID/bsa, STJ, ED 1.2 cm/m^2 1.1 - 1.9 Value Reference Ascending aorta ID 3.0 cm 1.9 - 3.5 Ascending aorta ID/bsa, A-P 1.5 cm/m^2 1.0 - 2.2 Left ventricle Value Reference LV ID, ED 3.8 cm 3.8 - 5.2 LV ID, ES 2.6 cm 2.2 - 3.5 LV ID/bsa, ED (L) 1.9 cm/m^2 2.3 - 3.1 LV ID/bsa, ES 1.3 cm/m^2 1.3 - 2.1 LV PW thickness, ED 0.9 cm 0.6 - 0.9 LV PW/LV ID ratio, ED 0.23 LV wall mass 108 g 66 - 150 LV wall mass/bsa 55 g/m^2 44 - 88 Stroke volume/bsa, 1-p A2C 47 ml/m^2 LV end-diastolic volume, 1-p A4C 117 ml 48 - 140 LV end-systolic volume, 1-p A4C 32 ml 12 - 60 LV end-diastolic volume, 2-p (H) 126 ml 46 - 106 LV end-systolic volume, 2-p 38 ml 14 - 42 LV ejection fraction, (more content not included)... [employer] Work Phone: [place], [employer] Incoming Cardiology Results From [facility] - 03/02/2021 4:26 PM EDT TRANSTHORACIC ECHOCARDIOGRAM PATIENT: Malissa Elliott STUDY DATE: 03/02/2021 : 1985 AGE: 35 HT/WT: 165.1 cm (65 81.7 kg in) (179.6 lb) GENDER: F BP: 138 / 94 LOCATION: [facility] PATIENT Outpatient [facility] STATUS: *ORDERING PHYSICIAN: * Omid Sky MD *READING PHYSICIAN: * Lee, *SHOP MANAGER: * Sharon Salazar MD [facility] INDICATIONS: HYPERTENSIVE HEART DISEASE WITHOUT FAILURE, HX VT AND ARRHYTHMIA. CONCLUSIONS SUMMARY: 1. Left ventricle: The cavity size is normal. Wall thickness is normal. Systolic function is by the biplane method of disks. The estimated ejection fraction is 70%. There are no regional wall motion abnormalities. Left ventricular diastolic function parameters are normal. 2. Right ventricle: The cavity size is normal. Systolic function is normal. There is no evidence for free wall thinning nor aneurysmal dilatation. 3. No significant valve disease. STUDY DATA: Complete transthoracic echocardiogram. Procedure: Image quality was suboptimal. The study was technically limited due to poor acoustic window availability and body habitus. Intravenous imaging enhancement (Definity) was administered to opacify the chamber. Definity lot #: [id number]. M-mode, complete 2D, complete spectral Doppler, and color flow Doppler images were acquired and archived for permanent storage and are available for subsequent review. Study status: Routine. Patient status: Outpatient. ECG RHYTHM: NSR FINDINGS LEFT VENTRICLE: The cavity size is normal. Wall thickness is normal. Systolic function is by the biplane method of disks. The estimated ejection fraction is 70%. There are no regional wall motion abnormalities. Left ventricular diastolic function parameters are normal. RIGHT VENTRICLE: The cavity size is normal. Systolic function is normal. There is no evidence for free wall thinning nor aneurysmal dilatation. Right ventricular systolic pressure is within the normal range. VENTRICULAR SEPTUM: There is no evidence of a ventricular septal defect. LEFT ATRIUM: The atrium is normal in size. RIGHT ATRIUM: The atrium is normal in size. ATRIAL SEPTUM: Color Doppler shows no shunt. MITRAL VALVE: Structurally normal valve. Doppler: There is trivial, less than 1+ regurgitation. The peak diastolic gradient is 2 mm Hg. AORTIC VALVE: Not well visualized. Structurally normal valve. Probably trileaflet. Doppler: There is no regurgitation. TRICUSPID VALVE: Structurally normal valve. Doppler: There is trivial, less than 1+ regurgitation. PULMONIC VALVE: Structurally normal valve. Doppler: There is trivial, less than 1+ regurgitation. AORTA: The aorta is well visualized, normal, and normal size. PULMONARY ARTERY: Main pulmonary artery: Normal. PERICARDIUM: There is no pericardial effusion. SYSTEMIC VEINS: Well visualized. Inferior vena cava: The vessel is normal. The IVC collapses by greater than 50% with inspiration. Measurements Value Reference Aortic root ID 3.2 cm <3.6 Aortic root ID, STJ, ED 2.4 cm 2.0 - 3.2 Aortic root ID/bsa, STJ, ED 1.2 cm/m^2 1.1 - 1.9 Value Reference Ascending aorta ID 3.0 cm 1.9 - 3.5 Ascending aorta ID/bsa, A-P 1.5 cm/m^2 1.0 - 2.2 Left ventricle Value Reference LV ID, ED 3.8 cm 3.8 - 5.2 LV ID, ES 2.6 cm 2.2 - 3.5 LV ID/bsa, ED (L) 1.9 cm/m^2 2.3 - 3.1 LV ID/bsa, ES 1.3 cm/m^2 1.3 - 2.1 LV PW thickness, ED 0.9 cm 0.6 - 0.9 LV PW/LV ID ratio, ED 0.23 LV wall mass 108 g 66 - 150 LV wall mass/bsa 55 g/m^2 44 - 88 Stroke volume/bsa, 1-p A2C 47 ml/m^2 LV end-diastolic volume, 1-p A4C 117 ml 48 - 140 LV end-systolic volume, 1-p A4C 32 ml 12 - 60 LV end-diastolic volume, 2-p (H) 126 ml 46 - 106 LV end-systolic volume, 2-p 38 ml 14 - 42 LV ejection fraction, 2-p 70 % 54 - 74 LV E/e', lateral 6.7 LV E/e', medial 11.8 LV E/e', average 8.6 Ventricular septum Value Reference IVS thickness, ED (H) 1.0 cm 0.6 - 0.9 LVOT Value Reference LVOT ID, A-P 2.0 cm LVOT mean velocity, S 0.7 m/sec LVOT peak gradient, S 4 mm Hg Stroke volume (SV), LVOT DP 53 ml Stroke index (SV/bsa), LVOT DP 27 ml/m^2 Left atrium Value Reference LA volume/bsa, ES, 2-p 16 ml/m^2 16 - 34 Mitral valve Value Reference Mitral E-wave pea (more content not included)... [facility] Work Phone: Echo Complete w/wo Contrasto n 03-02-2021 Echo Complete w/wo Contrast [facility]: [id number] ACCESSION EXAM DATE/TIME PROCEDURE ORDERING PROVIDER [id number] 03/02/2021 15:46 EDT Echo Complete w/wo OMID SKY Contrast Reason For Exam (Echo Complete w/wo Contrast) Hypertensive heart disease without heart failure Report TRANSTHORACIC ECHOCARDIOGRAM PATIENT: Malissa Elliott STUDY DATE: 03/02/2021 [facility]#: [id number] : 1985 AGE: 35 HT/WT: 165.1 cm (65 81.7 kg in) (179.6 lb) GENDER: F BP: 138 / 94 LOCATION: [facility] PATIENT Outpatient [facility] STATUS: *ORDERING PHYSICIAN: * Omid Sky MD *READING PHYSICIAN: * Lee, *SHOP MANAGER: * Sharon Salazar MD [facility] INDICATIONS: HYPERTENSIVE HEART DISEASE WITHOUT FAILURE, HX VT AND ARRHYTHMIA. CONCLUSIONS SUMMARY: 1. Left ventricle: The cavity size is normal. Wall thickness is normal. Systolic function is by the biplane method of disks. The estimated ejection fraction is 70%. There are no regional wall motion abnormalities. Left ventricular diastolic function parameters are normal. 2. Right ventricle: The cavity size is normal. Systolic function is normal. There is no evidence for free wall thinning nor aneurysmal dilatation. 3. No significant valve disease. STUDY DATA: Complete transthoracic echocardiogram. Procedure: Image quality was suboptimal. The study was technically limited due to poor acoustic window availability and body habitus. Intravenous imaging enhancement (Definity) was administered to opacify the chamber. Definity lot #: [id number]. M-mode, complete 2D, complete spectral Doppler, and color flow Doppler images were acquired and archived for permanent storage and are available for subsequent review. Study status: Routine. Patient status: Outpatient. ECG RHYTHM: NSR Ultrasound Report FINDINGS LEFT VENTRICLE: The cavity size is normal. Wall thickness is normal. Systolic function is by the biplane method of disks. The estimated ejection fraction is 70%. There are no regional wall motion abnormalities. Left ventricular diastolic function parameters are normal. RIGHT VENTRICLE: The cavity size is normal. Systolic function is normal. There is no evidence for free wall thinning nor aneurysmal dilatation. Right ventricular systolic pressure is within the normal range. VENTRICULAR SEPTUM: There is no evidence of a ventricular septal defect. LEFT ATRIUM: The atrium is normal in size. RIGHT ATRIUM: The atrium is normal in size. ATRIAL SEPTUM: Color Doppler shows no shunt. MITRAL VALVE: Structurally normal valve. Doppler: There is trivial, less than 1+ regurgitation. The peak diastolic gradient is 2 mm Hg. AORTIC VALVE: Not well visualized. Structurally normal valve. Probably trileaflet. Doppler: There is no regurgitation. TRICUSPID VALVE: Structurally normal valve. Doppler: There is trivial, less than 1+ regurgitation. PULMONIC VALVE: Structurally normal valve. Doppler: There is trivial, less than 1+ regurgitation. AORTA: The aorta is well visualized, normal, and normal size. PULMONARY ARTERY: Main pulmonary artery: Normal. PERICARDIUM: There is no pericardial effusion. SYSTEMIC VEINS: Well visualized. Inferior vena cava: The vessel is normal. The IVC collapses by greater than 50% with inspiration. Measurements Value Reference Aortic root ID 3.2 cm <3.6 Aortic root ID, STJ, ED 2.4 cm 2.0 - 3.2 Aortic root ID/bsa, STJ, ED 1.2 cm/m^2 1.1 - 1.9 Value Reference Ascending aorta ID 3.0 cm 1.9 - 3.5 Ascending aorta ID/bsa, A-P 1.5 cm/m^2 1.0 - 2.2 Left ventricle Value Reference LV ID, ED 3.8 cm 3.8 - 5.2 LV ID, ES 2.6 cm 2.2 - 3.5 LV ID/bsa, ED (L) 1.9 cm/m^2 2.3 - 3.1 LV ID/bsa, ES 1.3 cm/m^2 1.3 - 2.1 LV PW thickness, ED 0.9 cm 0.6 - 0.9 LV PW/LV ID ratio, ED 0.23 LV wall mass 108 g 66 - 150 LV wall mass/bsa 55 g/m^2 44 - 88 Stroke volume/bsa, 1-p A2C 47 ml/m^2 LV end-diastolic volume, 1-p A4C 117 ml 48 - 140 LV end-systolic volume, 1-p A4C 32 ml 12 - 60 LV end-diastolic volume, 2-p (H) 126 ml 46 - 106 LV end-systolic volume, 2-p 38 ml 14 - 42 LV ejection fraction, 2-p 70 % 54 - 74 LV E/e', lateral 6.7 LV E/e', medial 11.8 LV E/e', average 8.6 Ultrasound Report Ventricular septum Value Reference IVS thickness, ED (H) 1.0 cm 0.6 - 0.9 LVOT Value Reference LVOT ID, A-P 2.0 cm LVOT mean velocity, S 0.7 m/sec LVOT peak gradient, S 4 mm Hg Stroke volu (more content not included)... Normal [facility] Vital Signs Date Time Vital Sign Value Performing Clinician Facility 07-13-2025 15:03-0400 Body height 167.[address] Marco A Marie MD Work Phone: [facility] 07-13-2025 15:03-0400 Body mass index (BMI) [Ratio] 25.9 kg/m2 Dr. Marco A Marie MD Work Phone: [facility] 07-13-2025 15:03-0400 Body weight 73.[address] Marco A Marie MD Work Phone: [facility] 07-13-2025 15:03-0400 Diastolic blood pressure 88 mm[Hg] Dr. Marco A Marie MD Work Phone: [facility] 07-13-2025 15:03-0400 Heart rate 85 /min Dr. Marco A Marie MD Work Phone: 4(092)242-626680 [place] [address] 07-13-2025 15:03-0400 Respiratory rate 17 /min Dr. Marco A Marie MD Work Phone: 6(021)030-733380 [place] [address] 07-13-2025 15:03-0400 SaO2% (BldA) [Mass fraction] 99 % Dr. Marco A Marie MD Work Phone: 9(144)472-769580 [place] [address] 07-13-2025 15:03-0400 Systolic blood pressure 128 mm[Hg] Dr. Marco A Marie MD Work Phone: 7(756)607-043580 [place] [address] 07-03-2025 12:54-0400 Body height 167.[address] Marco A Marie MD Work Phone: 4(249)869-653480 [place] [address] 07-03-2025 12:54-0400 Body mass index (BMI) [Ratio] 25.7 kg/m2 Dr. Marco A Marie MD Work Phone: 3(817)182-050880 [place] [address] 07-03-2025 12:54-0400 Body weight 72.[address] Marco A Marie MD Work Phone: 2(232)458-858780 [place] [address] 07-03-2025 12:54-0400 Diastolic blood pressure 106 mm[Hg] Dr. Marco A Marie MD Work Phone: 8(209)331-273738 [place] [address] 07-03-2025 12:54-0400 Heart rate 74 /min Dr. Marco A Marie MD Work Phone: 0(621)965-820438 [place] [address] 07-03-2025 12:54-0400 Respiratory rate 18 /min Dr. Marco A Marie MD Work Phone: 4(162)324-659080 [place] [address] 07-03-2025 12:54-0400 SaO2% (BldA) [Mass fraction] 100 % Dr. Marco A Marie MD Work Phone: 2(849)742-248580 [place] [address] 07-03-2025 12:54-0400 Systolic blood pressure 135 mm[Hg] Dr. Marco A Marie MD Work Phone: [facility] 05-06-2025 15:22-0400 Body temperature 98.1 [degF] Cm Aranza Jr., DPM Work Phone: [facility] 05-06-2025 15:22-0400 Diastolic blood pressure 87 mm[Hg] Cm Aranza Jr., DPM Work Phone: [facility] 05-06-2025 15:22-0400 Heart rate 89 /min Cm Aranza Jr., DPM Work Phone: [facility] 05-06-2025 15:22-0400 Systolic blood pressure 130 mm[Hg] Cm Aranza Jr., DPM Work Phone: [facility] 02-20-2025 15:11-0400 Body temperature 98.49 [degF] Cm Aranza Jr., DPM Work Phone: [facility] 02-20-2025 15:11-0400 Diastolic blood pressure 82 mm[Hg] Cm Aranza Jr., DPM Work Phone: [facility] 02-20-2025 15:11-0400 Heart rate 88 /min Cm Aranza Jr., DPM Work Phone: [facility] 02-20-2025 15:11-0400 Systolic blood pressure 116 mm[Hg] Cm Aranza Jr., DPM Work Phone: [facility] 02-13-2025 15:44-0400 Body temperature 98.1 [degF] Cm Aranza Jr., DPM Work Phone: [facility] 02-13-2025 15:44-0400 Diastolic blood pressure 92 mm[Hg] Cm Aranza Jr., DPM Work Phone: [facility] 02-13-2025 15:44-0400 Heart rate 64 /min Cm Aranza Jr., DPM Work Phone: [facility] 02-13-2025 15:44-0400 Systolic blood pressure 139 mm[Hg] Cm Aranza Jr., DPM Work Phone: [facility] 02-06-2025 10:28-0400 Body height 170.2 cm Cm Aranza Jr., DPM Work Phone: [facility] 02-06-2025 10:28-0400 Body temperature 98.2 [degF] Cm Aranza Jr., DPM Work Phone: [facility] 02-06-2025 10:28-0400 Diastolic blood pressure 72 mm[Hg] Cm Aranza Jr., DPM Work Phone: [facility] 02-06-2025 10:28-0400 Heart rate 72 /min Cm Aranza Jr., DPM Work Phone: [facility] 02-06-2025 10:28-0400 Respiratory rate 14 /min Mc Aranza Jr., DPM Work Phone: [facility] 02-06-2025 10:28-0400 SaO2% (BldA) [Mass fraction] 98 % Cm Aranza Jr., DPM Work Phone: [facility] 02-06-2025 10:28-0400 Systolic blood pressure 99 mm[Hg] Cm Aranza Jr., DPM Work Phone: [facility] 01-30-2025 13:58-0400 Body temperature 97.59 [degF] Cm Aranza Jr., DPM Work Phone: [facility] 01-30-2025 13:58-0400 Diastolic blood pressure 82 mm[Hg] Cm Aranza Jr., DPM Work Phone: [facility] 01-30-2025 13:58-0400 Heart rate 84 /min Cm Aranza Jr., DPM Work Phone: [facility] 01-30-2025 13:58-0400 Systolic blood pressure 117 mm[Hg] Cm Aranza Jr., DPM Work Phone: [facility] 01-23-2025 08:09-0400 Body temperature 97.7 [degF] Cm Aranza Jr., DPM Work Phone: [facility] 01-23-2025 08:09-0400 Diastolic blood pressure 80 mm[Hg] Cm Aranza Jr., DPM Work Phone: [facility] 01-23-2025 08:09-0400 Heart rate 79 /min Cm Aranza Jr., DPM Work Phone: [facility] 01-23-2025 08:09-0400 Systolic blood pressure 114 mm[Hg] Cm Aranza Jr., DPM Work Phone: [facility] 01-16-2025 08:17-0400 Body temperature 98.49 [degF] Cm Aranza Jr., DPM Work Phone: [facility] 01-16-2025 08:17-0400 Diastolic blood pressure 78 mm[Hg] Cm Aranza Jr., DPM Work Phone: [facility] 01-16-2025 08:17-0400 Heart rate 84 /min Cm Aranza Jr., DPM Work Phone: [facility] 01-16-2025 08:17-0400 Systolic blood pressure 116 mm[Hg] Cm Aranza Jr., DPM Work Phone: [facility] 01-06-2025 16:13-0500 Body height 170.2 cm Cheri Valente CNP Work Phone: [facility] 01-06-2025 16:13-0500 Body mass index (BMI) [Ratio] 27.57 kg/m2 Cheri Valente CNP Work Phone: [facility] 01-06-2025 16:13-0500 Body weight 79.83 kg Cheri Valente CNP Work Phone: [facility] 01-06-2025 16:13-0500 Diastolic blood pressure 85 mm[Hg] Cheri Valente CNP Work Phone: [facility] 01-06-2025 16:13-0500 Heart rate 72 /min Cheri Valente DRUG COUNSELOR Work Phone: [facility] 01-06-2025 16:13-0500 SaO2% (BldA) [Mass fraction] 97 % Cheri Valente DRUG COUNSELOR Work Phone: [facility] 01-06-2025 16:13-0500 Systolic blood pressure 127 mm[Hg] Cheri Valente DRUG COUNSELOR Work Phone: [facility] 12-24-2024 16:13-0500 Body temperature 98.2 [degF] Cm Aranza Jr., DPM Work Phone: [facility] 12-24-2024 16:13-0500 Diastolic blood pressure 99 mm[Hg] Cm Aranza Jr., DPM Work Phone: [facility] 12-24-2024 16:13-0500 Heart rate 83 /min Cm Aranza Jr., DPM Work Phone: [facility] 12-24-2024 16:13-0500 Systolic blood pressure 148 mm[Hg] Cm Aranza Jr., DPM Work Phone: [facility] 12-05-2024 16:43-0500 Diastolic blood pressure 99 mm[Hg] Cm Aranza Jr., DPM Work Phone: [facility] 12-05-2024 16:43-0500 Heart rate 78 /min Cm Aranza Jr., DPM Work Phone: [facility] 12-05-2024 16:43-0500 Systolic blood pressure 148 mm[Hg] Cm Aranza Jr., DPM Work Phone: [facility] 12-05-2024 16:21-0500 Body temperature 98.4 [degF] Cm Cobian Jr., DPM Work Phone: [facility] 10-14-2024 15:23-0500 Body height 170.[address] Marco A Marie MD Work Phone: [facility] 10-14-2024 15:20-0500 Body mass index (BMI) [Ratio] 28.5 kg/m2 Dr. Marco A Marie MD Work Phone: [facility] 10-14-2024 15:20-0500 Body weight 82.[address] Marco A Marie MD Work Phone: [facility] 10-14-2024 15:20-0500 Diastolic blood pressure 82 mm[Hg] Dr. Marco A Marie MD Work Phone: [facility] 10-14-2024 15:20-0500 Systolic blood pressure 122 mm[Hg] Dr. Marco A Marie MD Work Phone: [facility] 07-11-2024 11:54-0400 Blood Pressure Location IVAN MILAN MD [facility] 07-11-2024 11:54-0400 Blood Pressure Method IVAN MILAN MD [facility] 07-11-2024 11:54-0400 Diastolic Blood Pressure Non-Invasive 94 mm[Hg] IVAN MILAN MD [facility] 07-11-2024 11:54-0400 Heart rate 71 /min IVAN MILAN MD [facility] 07-11-2024 11:54-0400 Respiratory rate 18 /min IVAN MILAN MD [facility] 07-11-2024 11:54-0400 Systolic Blood Pressure Non-Invasive 135 mm[Hg] IVAN MILAN MD [facility] 07-11-2024 10:35-0400 Blood Pressure Cuff Size IVAN MILAN MD [facility] 07-11-2024 10:35-0400 Blood Pressure Location IVAN MILAN MD [facility] 07-11-2024 10:35-0400 Blood Pressure Method IVAN MILAN MD [facility] 07-11-2024 10:35-0400 Body height 170.2 cm IVAN MILAN MD [facility] 07-11-2024 10:35-0400 Body temperature 97.88 [degF] IVAN MILAN MD [facility] 07-11-2024 10:35-0400 Body weight 85.9 kg IVAN MILAN MD [facility] 07-11-2024 10:35-0400 Diastolic Blood Pressure Non-Invasive 98 mm[Hg] IVAN MILAN MD [facility] 07-11-2024 10:35-0400 Heart rate 82 /min IVAN MILAN MD [facility] 07-11-2024 10:35-0400 Respiratory rate 18 /min IVAN MILAN MD [facility] 07-11-2024 10:35-0400 Systolic Blood Pressure Non-Invasive 141 mm[Hg] IVAN MILAN MD [facility] 06-18-2024 16:01-0400 Body temperature 99.1 [degF] Cm Cobian Jr. DPNicolas Work Phone: [facility] 06-18-2024 16:01-0400 Diastolic blood pressure 86 mm[Hg] Cm Aranza Jr., DPM Work Phone: [facility] 06-18-2024 16:01-0400 Heart rate 74 /min Cm Aranza Jr., DPM Work Phone: [facility] 06-18-2024 16:01-0400 Systolic blood pressure 130 mm[Hg] Cm Aranza Jr., DPM Work Phone: [facility] 05-07-2024 16:11-0400 Body temperature 98.91 [degF] Cm Aranza Jr., DPM Work Phone: [facility] 05-07-2024 16:11-0400 Diastolic blood pressure 90 mm[Hg] Cm Aranza Jr., DPM Work Phone: [facility] 05-07-2024 16:11-0400 Heart rate 85 /min Cm Aranza Jr., DPM Work Phone: [facility] 05-07-2024 16:11-0400 Systolic blood pressure 146 mm[Hg] Cm Aranza Jr., DPM Work Phone: [facility] 02-27-2024 16:04-0400 Body temperature 100.6 [degF] Cm Aranza Jr., DPM Work Phone: [facility] Comment on above: sinus infection 02-27-2024 16:04-0400 Diastolic blood pressure 92 mm[Hg] Cm Aranza Jr., DPM Work Phone: [facility] 02-27-2024 16:04-0400 Heart rate 99 /min Cm Aranza Jr., DPM Work Phone: [facility] 02-27-2024 16:04-0400 Systolic blood pressure 139 mm[Hg] Cm Aranza Jr., DPM Work Phone: [facility] 10-03-2023 08:26-0500 Diastolic Blood Pressure Non-Invasive 79 mm[Hg] SOL SUZANNE MD [facility] 10-03-2023 08:26-0500 Heart rate 58 /min SOL PALACIOS MD [facility] 10-03-2023 08:26-0500 Respiratory rate 18 /min SOL PALACIOS MD [facility] 10-03-2023 08:26-0500 Systolic Blood Pressure Non-Invasive 120 mm[Hg] SOL PALACIOS MD [facility] 10-03-2023 06:44-0500 Blood Pressure Location SOL PALACIOS MD [facility] 10-03-2023 06:44-0500 Blood Pressure Method SOL PALACIOS MD [facility] 10-03-2023 06:44-0500 Body height 167.6 cm SOL PALACIOS MD [facility] 10-03-2023 06:44-0500 Body temperature 98.96 [degF] SOL PALACIOS MD [facility] 10-03-2023 06:44-0500 Body weight 77.3 kg SOL PALACIOS MD [facility] 10-03-2023 06:44-0500 Diastolic Blood Pressure Non-Invasive 90 mm[Hg] SOL PALACIOS MD [facility] 10-03-2023 06:44-0500 Heart rate 64 /min SOL PALACIOS MD [facility] 10-03-2023 06:44-0500 Respiratory rate 16 /min SOL PALACIOS MD [facility] 10-03-2023 06:44-0500 Systolic Blood Pressure Non-Invasive 134 mm[Hg] SOL PALACIOS MD [facility] 12-30-2022 09:23-0500 Body temperature 98.6 [degF] Jim Plaza MD Work Phone: [facility] 12-30-2022 09:23-0500 Body weight 79.47 kg Jim Plaza MD Work Phone: [facility] 12-30-2022 09:23-0500 Diastolic blood pressure 94 mm[Hg] Jim Plaza MD Work Phone: [facility] 12-30-2022 09:23-0500 Heart rate 86 /min Jim Plaza MD Work Phone: [facility] 12-30-2022 09:23-0500 Respiratory rate 18 /min Jim Plaza MD Work Phone: [facility] 12-30-2022 09:23-0500 SaO2% (BldA) [Mass fraction] 99 % Jim Plaza MD Work Phone: [facility] 12-30-2022 09:23-0500 Systolic blood pressure 142 mm[Hg] Jim Plaza MD Work Phone: [facility] 09-21-2022 17:20-0500 Body height 170.18 cm MD Dany Spence MD [facility] 09-21-2022 17:20-0500 Body mass index (BMI) [Ratio] 28.18 kg/m2 MD Dany Spence MD [facility] 09-21-2022 17:20-0500 Body temperature 97.7 [degF] MD Dany Spence MD [facility] 09-21-2022 17:20-0500 Body weight 81.6 kg MD Dany Spence MD [facility] 09-21-2022 17:20-0500 Diastolic blood pressure 72 mm[Hg] MD Dany Spence MD [facility] 09-21-2022 17:20-0500 Heart rate 87 /min MD Dany Spence MD [facility] [place] 09-21-2022 17:20-0500 Inhaled oxygen concentration 97 % MD Dany Spence MD [facility] 09-21-2022 17:20-0500 Respiratory rate 18 /min MD Dany Spence MD [facility] [place] 09-21-2022 17:20-0500 Systolic blood pressure 112 mm[Hg] MD Dany Spence MD [facility] 08-15-2022 09:32-0400 Body height 170.2 cm Jovita Carlos MD Work Phone: [facility] 08-15-2022 09:32-0400 Body mass index (BMI) [Ratio] 28.54 kg/m2 Jovita Carlos MD Work Phone: [facility] 08-15-2022 09:32-0400 Body weight 82.64 kg Jovita Carlos MD Work Phone: [facility] 08-15-2022 09:32-0400 Diastolic blood pressure 85 mm[Hg] Jovita Carlos MD Work Phone: [facility] 08-15-2022 09:32-0400 Heart rate 75 /min Jovita Carlos MD Work Phone: [facility] 08-15-2022 09:32-0400 Systolic blood pressure 137 mm[Hg] Jovita Carlos MD Work Phone: [facility] 2022 11:16-0400 Body height 170.[address] Marco A Marie Work Phone: [facility] Work Phone: 2022 11:16-0400 Body mass index (BMI) [Ratio] 28.5 kg/m2 Dr. Marco A Marie Work Phone: [facility] Work Phone: 2022 11:16-0400 Body weight 82.[address] Marco A Marie Work Phone: [facility] Work Phone: 2022 11:16-0400 Diastolic blood pressure 88 mm[Hg] Dr. Marco A Marie Work Phone: [facility] Work Phone: 2022 11:16-0400 Heart rate 72 /min Dr. Marco A Marie Work Phone: [facility] Work Phone: 2022 11:16-0400 Systolic blood pressure 120 mm[Hg] Dr. Marco A Marie Work Phone: [facility] Work Phone: 03-26-2022 22:40-0400 Body height 170.[address] Marco A Marie Work Phone: [facility] Work Phone: 03-26-2022 22:40-0400 Body mass index (BMI) [Ratio] 30 kg/m2 Dr. Marco A Marie Work Phone: [facility] Work Phone: 03-26-2022 22:40-0400 Body weight 87.[address] Marco A Marie Work Phone: [facility] Work Phone: 03-26-2022 22:40-0400 Diastolic blood pressure 94 mm[Hg] Dr. Marco A Marie Work Phone: [facility] Work Phone: 03-26-2022 22:40-0400 Heart rate 72 /min Dr. Marco A Marie Work Phone: [facility] Work Phone: 03-26-2022 22:40-0400 Respiratory rate 18 /min Dr. Marco A Marie Work Phone: [facility] Work Phone: 03-26-2022 22:40-0400 SaO2% (BldA) [Mass fraction] 100 % Dr. Marco A Marie Work Phone: [facility] Work Phone: 03-26-2022 22:40-0400 Systolic blood pressure 129 mm[Hg] Dr. Marco A Marie Work Phone: [facility] Work Phone: 03-26-2022 22:22-0400 Body temperature 98.6 [degF] Dr. Marco A Marie Work Phone: [facility] Work Phone: 02-16-2022 13:44-0400 Body mass index (BMI) [Ratio] 30.1 kg/m2 Dr. Marco A Marie Work Phone: [facility] Work Phone: 02-16-2022 13:44-0400 Body weight 87.[address] Marco A Marie Work Phone: [facility] Work Phone: 02-16-2022 13:44-0400 Diastolic blood pressure 102 mm[Hg] Dr. Marco A Marie Work Phone: [facility] Work Phone: 02-16-2022 13:44-0400 Heart rate 84 /min Dr. Marco A Marie Work Phone: [facility] Work Phone: 02-16-2022 13:44-0400 Respiratory rate 16 /min Dr. Marco A Marie Work Phone: [facility] Work Phone: 02-16-2022 13:44-0400 Systolic blood pressure 154 mm[Hg] Dr. Marco A Marie Work Phone: [facility] Work Phone: 02-16-2022 13:44-0400 Body height 170.[address] Marco A Marie Work Phone: [facility] Work Phone: 02-16-2022 13:44-0400 Body mass index (BMI) [Ratio] 30.1 kg/m2 Dr. Marco A Marie Work Phone: [facility] Work Phone: 02-16-2022 13:44-0400 Body weight 87.[address] Marco A Marie Work Phone: [facility] Work Phone: 02-16-2022 13:44-0400 Diastolic blood pressure 102 mm[Hg] Dr. Marco A Marie Work Phone: [facility] Work Phone: 02-16-2022 13:44-0400 Heart rate 84 /min Dr. Marco A Marie Work Phone: [facility] Work Phone: 02-16-2022 13:44-0400 Respiratory rate 16 /min Dr. Marco A Marie Work Phone: [facility] Work Phone: 02-16-2022 13:44-0400 Systolic blood pressure 154 mm[Hg] Dr. Marco A Marie Work Phone: [facility] Work Phone: Encounters Encounter Date Encounter Type Care Provider Facility Start: 07-15-2025 ambulatory Jessica Qureshi Facilit y:[facility] Start: 07-13-2025 End: 07-13-[address] Jessica Qureshi MD -[facility] Work Phone: Start: 07-13-2025 End: 07-13-[address] Marco A Marie MD Work Phone: -[facility] Start: 07-03-2025 End: 07-03-[address] Marco A Marie MD Work Phone: -[facility] Start: 07-03-2025 End: 07-03-[address] Maico Petty MD -[facility] Work Phone: Start: 07-03-2025 End: 07-03-2025 ambulatory Marco A Marie Facility:[facility] Start: 06-29-2025 End: 06-29-[address] Marco A Marie MD Work Phone: -[facility] Start: 06-29-2025 End: 06-29-[address] Maico Petty MD -[facility] Start: 06-29-2025 End: 06-29-2025 ambulatory [facility] [facility] Start: 06-09-2025 End: 06-09-[address] Marco A Marie MD Work Phone: -[facility] Start: 06-09-2025 End: 06-09-[address] Francis Miranda MD -[facility] Start: 06-09-2025 End: 06-09-2025 ambulatory Francis Miranda Facility:[facility] Start: 2025 End: 05-23-2025 Emergency department patient visit DR CARINE BARRAZA MD [facility] Start: 05-06-2025 End: 05-06-2025 Office outpatient visit 15 minutes Cm Cobian DPM Work Phone: [facility] Comment on above: Plantar fasciitis (P rimary Dx); Left foot pain Start: 05-06-2025 End: 05-06-2025 ambulatory CM COBIAN JR. [facility] Start: 03-23-2025 End: 03-23-[address] Marco A Marie MD -MRI - [facility] Work Phone: Start: 03-23-2025 End: 03-23-2025 ambulatory Marco A Marie Facility:[facility] Start: 02-20-2025 End: 02-20-2025 Postop follow up visit related to original px Cm Aranza DPM Work Phone: [facility] Comment on above: Left foot pain (Prim salvador Dx); Plantar fasciitis Start: 02-20-2025 End: 02-20-2025 ambulatory CM COBIAN JR. [facility] Start: 02-13-2025 End: 02-13-2025 Postop follow up visit related to original px Cm Aranza DPM Work Phone: [facility] Comment on above: Plantar fasciitis (P rimary Dx) Start: 02-13-2025 End: 02-13-2025 ambulatory CM COBIAN J[facility]aylor [facility] Start: 02-06-2025 End: 02-06-2025 Postop follow up visit related to original px Cm Aranza DPM Work Phone: [facility] Comment on above: Plantar fasciitis (P rimary Dx); Left foot pain Start: 02-06-2025 End: 02-06-2025 ambulatory MARCO A MARIE [facility] Start: 01-30-2025 End: 01-30-2025 Follow-up encounter Cm Desouzan DPM Work Phone: [facility] Comment on above: Left foot pain (Prim salvador Dx) Start: 01-30-2025 End: 01-30-2025 ambulatory MARCO A MARIE [facility] Start: 01-29-2025 End: 01-29-[address] Marco A Marie MD Work Phone: [facility] Work Phone: Start: 01-29-2025 End: 01-29-[address] Marco A Marie MD -Cat Scan, [facility] Work Phone: Start: 01-29-2025 End: 01-29-2025 ambulatory Marco A Marie Facility:[facility] Start: 01-23-2025 End: 01-23-2025 Postop follow up visit related to original px Cm Cobian DPM Work Phone: [facility] Comment on above: Plantar fasciitis (P rimary Dx); Left foot pain Start: 01-23-2025 End: 01-23-2025 [facility] Start: 01-21-2025 End: 01-21-2025 Documentation procedure Cm Floreslon DPM Work Phone: [facility] Start: 01-19-2025 End: 01-19-2025 ambulatory CM DILLON [facility] Start: 01-16-2025 End: 01-16-2025 ambulatory MARCO A [facility] Start: 01-16-2025 End: 01-16-2025 Office outpatient visit 25 minutes Cm Floreslon DPM Work Phone: [facility] Comment on above: Plantar fasciitis (P rimary Dx) Start: 01-06-2025 Encounter for other preprocedural examination [facility] Start: 01-06-2025 End: 01-06-2025 Office outpatient new 45 minutes Marco A Marie MD Work Phone: [facility] Preadmission Testing Comment on above: Pre-op examination ( Primary Dx); Plantar fasciitis; Left foot pain; Juan J's syndrome; Cardiac arrhythmia, unspecified cardiac arrhythmia type; TIA (transient ischemic attack) Start: 01-06-2025 End: 01-10-2025 ambulatory [facility] Start: 01-06-2025 End: 01-10-2025 Encounter for other preprocedural examination [facility] Start: 01-06-2025 End: 01-06-2025 Preprocedural examination done Marco A Marie MD Work Phone: [facility] Work Phone: Start: 12-24-2024 End: 12-24-2024 Office outpatient visit 25 minutes Cm Aranza DPM Work Phone: [facility] Comment on above: Plantar fasciitis (P rimary Dx); Left foot pain Start: 12-24-2024 End: 12-24-2024 ambulatory CM DESOUZAKuldeep GUTIERREZ. [facility] Start: 12-19-2024 End: 12-19-2024 ambulatory CM DESOUZAN JR. [facility] Start: 12-05-2024 End: 12-05-2024 ambulatory CM DESOUZAN JR. [facility] Start: 12-05-2024 End: 12-05-2024 Office outpatient visit 15 minutes Cm Aranza DPM Work Phone: [facility] Comment on above: Plantar fasciitis (P rimary Dx); Left foot pain Start: 10-20-2024 Encounter for other preprocedural examination Samara Canas [facility] Start: 10-14-2024 End: 10-14-2024 Patient encounter procedure Maddie QUINTERO -[facility] Work Phone: Start: 10-14-2024 End: 10-14-2024 ambulatory Marco A Marie Facility[facility] Start: 10-13-2024 Encounter for other preprocedural examination Marco A Marie [facility] Start: 09-25-2024 End: 09-25-2024 ambulatory Marco A Marie Facility:[facility] Start: 09-23-2024 End: 09-24-2024 ambulatory Marco A Marie Facility:[facility] Start: 09-22-2024 End: 09-22-2024 ambulatory Marco A Marie Facility:[facility] Start: 09-17-2024 End: 09-17-2024 ambulatory Marco A Marie Facility:[facility] Start: 09-10-2024 End: 09-10-2024 ambulatory Marco A Marie Facility:[facility] Start: 08-18-2024 End: 08-18-2024 ambulatory Marco A Marie Facility:[facility] Start: 08-04-2024 End: 08-04-2024 ambulatory Marco A Marie Facility:[facility] Start: 08-04-2024 End: 08-04-2024 ambulatory Marco A Manda Yvon Facility:[facility] Start: 07-29-2024 End: 07-29-2024 Emergency department patient visit JONNY REIS Danyel [facility] Start: 07-18-2024 End: 07-18-2024 ambulatory Marco A Manda Yvon Facility:[facility] Start: 07-11-2024 End: 07-11-2024 Emergency department patient visit IVAN MILAN MD [facility] Start: 06-18-2024 End: 06-18-2024 Office outpatient visit 15 minutes Cm Cobian DPM Work Phone: [facility] Comment on above: Plantar fasciitis (P rimary Dx); Left foot pain Start: 06-18-2024 End: 06-18-2024 ambulatory CM COBIAN JR. [facility] Start: 05-07-2024 End: 05-07-2024 Patient encounter procedure Cm Cobian DPM Work Phone: [facility] Comment on above: Plantar fasciitis (P rimary Dx) Start: 04-02-2024 End: 04-02-2024 Office outpatient visit 10 minutes Cm Cobian DPM Work Phone: [facility] Comment on above: Plantar fasciitis (P rimary Dx) Start: 03-12-2024 End: 03-12-2024 Patient encounter procedure Cm Cobian DPM Work Phone: [facility] Comment on above: Plantar fasciitis (P rimary Dx) Start: 03-11-2024 End: 03-11-2024 ambulatory [facility] Work Phone: Start: 03-11-2024 End: 03-11-2024 Patient encounter procedure [facility] Start: 02-27-2024 End: 02-27-2024 Office outpatient new 30 minutes Cm Cobian DPM Work Phone: [facility] Comment on above: Plantar fasciitis (P rimary Dx) Start: 02-12-2024 End: 02-12-2024 ambulatory [facility] Work Phone: Start: 02-12-2024 End: 02-12-2024 Patient encounter procedure [facility] Work Phone: Start: 12-25-2023 End: 12-25-2023 ambulatory [facility] Work Phone: Start: 12-25-2023 End: 12-25-2023 [facility] Start: 10-04-2023 End: 10-04-2023 ambulatory [facility] Work Phone: Start: 10-04-2023 End: 10-04-2023 Patient encounter procedure [facility] Start: 10-03-2023 End: 10-03-2023 Emergency department patient visit MARCO A MARIE MD Facility:B Start: 10-03-2023 End: 10-03-2023 Emergency department patient visit SOL PALACIOS MD [facility] Start: 09-05-2023 End: 09-05-2023 ambulatory [facility] Work Phone: Start: 09-05-2023 End: 09-05-2023 [facility] Start: 08-13-2023 End: 08-13-2023 Emergency department patient visit DR TAYE JOSE MD Facility:B Start: 04-20-2023 End: 04-20-2023 ambulatory [facility] Work Phone: Start: 04-20-2023 End: 04-20-2023 Patient encounter procedure [facility] Start: 01-11-2023 End: 01-11-2023 ambulatory [facility] Work Phone: Start: 01-11-2023 End: 01-11-2023 Patient encounter procedure [facility], Phy Office 3rd Flr Start: 12-30-2022 End: 12-30-2022 ambulatory Facility:[facility] Start: 12-30-2022 End: 12-30-2022 Patient encounter procedure Jim Plaza MD Work Phone: [facility] Comment on above: Dental infection (Pr imary Dx) Start: 09-20-2022 End: 09-21-2022 Evaluation and management of inpatient OTHER PCP Facility:UNKNOWN Start: 09-18-2022 ambulatory OTHER PCP Facility:[facility] Start: 09-18-2022 ambulatory AADRSH ENGLE Facility: UNKNOWN Start: 09-18-2022 Encounter for other preprocedural examination ADARSH ENGLE Facility:UNKNOWN Start: 08-15-2022 End: 08-15-[address] Marco A Marie Work Phone: [facility] Work Phone: Start: 08-15-2022 End: 08-15-[address] Marco A Marie Work Phone: [facility] Start: 08-15-2022 ambulatory JOIVTA Lee ty:[facility] Start: 08-15-2022 End: 08-15-2022 Office outpatient new 60 minutes Jovita Carlos MD Work Phone: [facility] [place] Comment on above: Left hand pain (Prim salvador Dx) Start: 08-06-2022 ambulatory ZHOA June y:[facility] Start: 07-21-2022 End: 07-21-[address] MAICO PETTY MD [facility] Start: 07-19-2022 End: 07-20-2022 ambulatory MARCO A MARIE [facility] Start: 07-19-2022 End: 07-19-2022 ambulatory MARCO A MARIE [facility] Start: 07-19-2022 End: 07-19-2022 Subsequent hospital visit by physician Cathleen Srinivasan MD Work Phone: [facility] Comment on above: 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 Marco A Marie Work Phone: [facility] Start: 04-21-2022 End: 04-21-[address] Marco A Marie Work Phone: [facility] Start: 04-07-2022 ambulatory ZHAO WHITE Facilit y:[facility] Start: 03-26-2022 End: 03-26-2022 Emergency department patient visit Dr. Marco A Marie Work Phone: [facility]Emergency Department Start: 03-22-2022 ambulatory TOSHIMA OKABE Facilit y:[facility] Start: 03-16-2022 End: 03-16-[address] Marco A Marie Work Phone: [facility]-Laboratory, [facility] Office 3rd [facility] Start: 03-14-2022 ambulatory ZHAO WHITE Facilit y:[facility] Start: 02-22-[address] Marco A huntley Work Phone: [facility] Start: 02-17-2022 Non-patient / Non-visit Dr. Brooke Marie Work Phone: [facility] Start: 02-16-2022 End: 02-16-[address] Marco A Marie Work Phone: [facility] Start: 11-24-2021 End: 11-24-[address] Marco A Marie Work Phone: [facility]-Laboratory, Phy Office 3rd Flr Start: 03-02-2021 End: 03-02-2021 Subsequent hospital visit by physician Omid Sky MD Work Phone: [facility] Comment on above: Arrived Start: 12-15-2020 End: 12-15-2020 Subsequent hospital visit by physician Omid Sky Work Phone: [facility] Comment on above: Ventricular tachycar naren (HCC) MD Dany Spence MD [facility] Procedures Date Procedure Procedure Detail Performing Clinician Start: 07-03-2025 Computed tomography of abdomen and pelvis with contrast Dr. Marco A Marie MD Work Phone: Start: 06-09-2025 Measurement of Borre dorian burgdorferi antibody Dr. Marco A Marie MD Work Phone: Comment on above: Lyme antibodies not detected. Reflex testing is notindicated.No laboratory evidence of infection with B. burgdorferi(Lyme disease). Negative results may occur in patientsrecently infected (less than or equal to 14 days) with B.burgdorferi. If recent infection is suspected, repeattesting on a new sample collected in 7 to 14 days isrecommended.Performed at: [address] [id number] Director: Kashmir Levy PhD, Phone: [phone] Start: 03-23-2025 MRI of brain with contrast Dr. Marco A Marie MD Work Phone: Start: 01-29-2025 CT of head without contrast Dr. Marco A Marie MD Work Phone: Start: 01-23-2025 APPLY DRESSING Cm Cobian DPM Work Phone: Start: 01-06-2025 Blood count complete auto&auto difrntl wbc Cm Cobian DPM Work Phone: Start: 02-12-2024 X-ray of both feet Start: 04-20-2023 Plain x-ray of pelvi s and lower extremity Start: 04-20-2023 Radiologic examinati on of knee Start: 08-15-2022 X-ray of cervical spine Dr. Marco A Marie Work Phone: Start: 03-02-2021 Echo tthrc r-t 2d w/ wom-mode compl spec&colr d Omid Sky MD Work Phone: Recorder, device (ph ysical object) DR MAICO PETTY MD Comment on above: loop recorder & esthela ramone Vaginal hysterectomy DR MAICO PETTY MD Plan of Treatment Date Care Activity Detail Author Start: 05-28-2030 DTaP/Tdap/Td vaccine (2 - Td) DTaP/Tdap/Td vaccine (2 - Td) [facility] Work Phone: Start: 05-28-2030 Tetanus vaccination Tetanus: Every 1 0yrs [facility] Start: 08-05-2025 End: 08-05-2025 Patient encounter procedure 08/05/2025 4:15 PM EDT Office Visit [facility] Phys[facility] [address] [place] [address] Cm Cobian Jr., LUTHER [address] [place] [phone] [facility] Start: 07-06-2025 Influenza vaccination [facility] Start: 07-03-2025 Following clinical pathway protocol [facility] Start: 05-20-2025 End: 05-20-2025 Patient encounter procedure 05/20/2025 4:00 PM EDT Office Visit [facility] [address] [place] [address] Cm Cobian Jr., DPNicolas [address] [place] [address] [facility] Start: 02-20-2025 End: 02-20-2025 Follow-up encounter 02/20/2025 3:30 PM EDT Follow-Up [facility] Physician [facility] [address] [place], [phone] Cm Cobian Jr., DPM [address] [place] [address] [facility] Physician [facility] Start: 02-13-2025 End: 02-13-2025 Follow-up encounter 02/13/2025 3:45 PM EDT Follow-Up [facility] Physician [facility] [address] [place] [phone] Cm Cobian Jr., DPM [address] [place], [facility] Start: 02-06-2025 End: 02-06-2025 Follow-up encounter 02/06/2025 10:30 AM EDT Follow-Up [facility] [address] [place] [phone] Cm Cobian Jr., DPM [address] [place], [facility]05 [facility] Start: 01-30-2025 End: 01-30-2025 Follow-up encounter 01/30/2025 2:00 PM EDT Follow-Up [facility] Physician [facility] [address] [place] [phone] Cm Cobian Jr., DPM [address] [place] [address] [facility] Phys[facility] Start: 01-23-2025 End: 01-23-2025 Follow-up encounter 01/23/2025 8:30 AM EDT Follow-Up [facility] Phys[facility] [address] [place] [phone] Cm Cobian Jr., DPM [address] [place] [address] [facility] Start: 01-19-2025 End: 01-19-2025 Admission to same day surgery center 01/19/2025 9:55 AM EDT - 01/19/2025 10:58 AM EDT Surgery [facility] [address] [place] [phone] Cm Cobian Jr., DPNicolas [address] [place] [address] left foot plantar fasciotomy [facility] Comment on above: left foot plantar fa sciotomy Start: 01-19-2025 End: 01-19-2025 Anesthesia consultation 01/19/2025 9:55 AM EDT Anesthesia Event [facility] [address] [place] [address] Isabel Diaz MD [address] [place] [address] [facility] Start: 01-19-2025 End: 01-19-2025 Fasciotomy foot&/toe FASCIOTOMY PLANTAR ENDOSCOPIC UNILATERAL Plantar fasciitis Left foot pain 01/19/2025 9:55 AM EDT [facility] Start: 01-19-2025 End: 01-19-2025 Admission to same day surgery center 01/19/2025 7:35 AM EDT - 01/19/2025 8:38 AM EDT Surgery [facility] [address] [place] [phone] Cm Cobian Jr., LUTHER [address] [place] [address] left foot plantar fasciotomy [facility] Comment on above: left foot plantar fa sciotomy Start: 01-19-2025 End: 01-19-2025 Fasciotomy foot&/toe FASCIOTOMY PLANTAR ENDOSCOPIC UNILATERAL Plantar fasciitis Left foot pain 01/19/2025 7:35 AM EDT [facility] Start: 01-19-2025 Subsequent hospital visit by physician [facility] Start: 01-16-2025 End: 01-16-2025 Patient encounter procedure 01/16/2025 3:45 PM EDT Office Visit [facility] [address] [place] [address] Cm Cobian Jr., DPM [address] [place] [address] [facility] Start: 01-16-2025 End: 01-16-2025 Patient encounter procedure 01/16/2025 8:15 AM EDT Office Visit [facility] [address] [place] [address] Cm Cobian Jr., DPM [address] [place] [address] [facility] Start: 07-09-2024 End: 07-09-2024 Patient encounter procedure 07/09/2024 4:00 PM EDT Office Visit [facility] [address] [place] [address] Cm Cobian Jr., DPM [address] [place] [address] [facility] Start: 07-06-2024 COVID-19 Vaccine ( season) COVID-19 Vaccine ( season) [facility] Start: 07-06-2024 Influenza vaccination [facility] Start: 06-04-2024 End: 06-04-2024 Patient encounter procedure 06/04/2024 4:15 PM EDT Office Visit [facility] [address] [place] [address] Cm Cobian Jr., DPM [address] [place] [address] [facility] Phys[facility] Start: 2024 Screening for malign ant neoplasm of breast Mammogram [facility] Start: 04-02-2024 End: 04-02-2024 Patient encounter procedure 04/02/2024 4:00 PM EDT Office Visit [facility] Phys[facility] [address] [place] [address] Cm Cobian Jr., DPM [address] [place] [address] [facility] Start: 03-12-2024 End: 03-12-2024 Patient encounter procedure 03/12/2024 4:00 PM EDT Office Visit [facility] Phys[facility] [address] [facility] [place] [address] Cm Cobian Jr., DPM [address] [place] [address] [facility] Start: 07-06-2023 COVID-19 Vaccine ( season) COVID-19 Vaccine ( season) [facility] Start: 11-05-2022 DEPRESSION ASSESSMENT DEPRESSION [facility] Start: 10-31-2022 End: 10-31-2022 Patient encounter procedure 10/31/2022 Office Visit Vascular Surgery Jovita Carlos MD [facility] [address] [place] [address] [facility] [place] Start: 08-15-2022 End: 08-15-2023 XR Cervical spine 4 Views XR SPINE CERVICAL 4 VIEWS Imaging Routine Left hand pain Expected: 08/15/2022, Expires: 08/15/2023 [facility] Comment on above: Expected: 08/15/2022 , Expires: 08/15/2023 Start: 07-06-2022 FLU (#1) FLU (#1) [facility] Start: 07-06-2022 Influenza vaccination [facility] Start: 03-26-2022 CT of head without contrast Brain/Head without Contrast [facility] Work Phone: Start: 07-06-2021 Influenza vaccination Flu vacc ine (Season Ended) [facility] Work Phone: Start: 07-06-2020 Influenza vaccination Flu vaccine (# 1) [facility] Work Phone: Start: 05-27-2015 Potassium [Moles/vol ume] in Serum or Plasma POTASSIUM [facility] Start: 09-23-2011 MMR (1 of 1 - Standa rd series) MMR (1 of 1 - Standard series) [facility] Start: 09-23-2011 Varicella (1 of 2 - 2-dose childhood series) Varicella (1 of 2 - 2-dose childhood series) [facility] Start: 2005 Microscopic observat ion [Identifier] in Cervix by Cyto stain Pap Smear [facility] Start: 2005 Screening for malign ant neoplasm of cervix [facility] Start: 2003 Third diphtheria, tetanus and acellular pertussis (DTaP) vaccination TDAP (ADULT) [facility] Start: 2003 Urine microalbumin profile DTAP,TDAP,TD (1 - Tdap) [facility] Start: 2002 ANNUAL PCP TEAM [employer] RICHARDSON DISEASE VISIT ANNUAL PCP TEAM CHRONIC DISEASE VISIT [facility] Start: 2002 BP CONTROLLED (<130/80) BP CONTROLLE D (<130/80) [facility] Start: 2002 HEPATITIS C SCREENING HEPATITIS C SC [facility] Start: 2002 Hepatitis C screening Hepatitis C Sc [facility] Start: 2002 HIV SCREENING HIV SCREENING [facility] Start: 2002 Tetanus vaccination TETANUS [facility] Start: 2000 COVID-19 Vaccine (1) COVID-19 Vaccin e (1) [facility] Work Phone: Start: 2000 MenB (1 of 2 - MenB 2-Dose Series) MenB (1 of 2 - MenB 2-Dose Series) [facility] Start: 1999 HIV screening [facility] Start: 1996 Depression screening using PHQ-9 (Patient Health Questionnaire 9) score [facility] Start: 1991 Tetanus Diphtheria a nd Pertussis Vaccines (1 - Tdap) Tetanus Diphtheria and Pertussis Vaccines (1 - Tdap) [facility] Start: 1987 History and physical examination, annual for health maintenance Wellness Visit [facility] Start: 1985 Varicella vaccine (1 of 2 - 2-dose childhood series) Varicella vaccine (1 of 2 - 2-dose childhood series) [facility] Work Phone: Start: 1984 COVID-19 (#1) COVID-19 (#1) [facility] Start: 1984 COVID-19 VACCINE (#1) COVID-19 VACCI NE (#1) [facility] Start: 1984 Hepatitis B (1 of 3 - 3-dose series) Hepatitis B (1 of 3 - 3-dose series) [facility] Start: 1984 Hepatitis B vaccination HEP B VACCINE (1 of 3 - 3-dose series) [facility] Start: 1984 Hepatitis C screening [facility] Start: 1984 Tetanus vaccination Tetanus: Every 1 0yrs [facility] End: 12-24-2025 Complete blood count with white cell differential, manual CBC and differential Lab Routine Plantar fasciitis Left foot pain 1 Occurrences starting 12/24/2024 until 12/24/2025 [facility] Work Phone: Comment on above: 1 Occurrences starti ng 12/24/2024 until 12/24/2025 Fasciotomy foot&/toe FASCIOTOMY PLANTAR ENDOSCOPIC UNILATERAL Plantar fasciitis Left foot pain [facility] End: 07-19-2022 Genetic Sendout: Hypokalemia and Related Disorders Panel [facility] Work Phone: Comment on above: 1 Occurrences starti ng 07/19/2022 until 07/19/2022 End: 06-18-2025 MR Foot - left WO contrast MR Foot Left Without Contrast Imaging Routine Plantar fasciitis Left foot pain 1 Occurrences starting 06/18/2024 until 06/18/2025 [facility] Work Phone: Comment on above: 1 Occurrences starti ng 06/18/2024 until 06/18/2025 End: 12-05-2025 MR Foot - left WO contrast MR Foot Left Without Contrast Imaging Routine Plantar fasciitis Left foot pain 1 Occurrences starting 12/05/2024 until 12/05/2025 [facility] Work Phone: Comment on above: 1 Occurrences starti ng 12/05/2024 until 12/05/2025 Patient referral [facility] Work Phone: Immunizations Immunization Date Immunization [facility] influenza virus vaccine, unspecified formulation Cm Cobian Jr., DPM Work Phone: [facility] 10-03-2021 influenza virus vaccine, unspecified formulation Jovita Carlos MD Work Phone: [facility] 01-28-2021 measles, mumps and rubella virus vaccine Dr. Marco A Marie Work Phone: [facility] 01-17-2021 influenza, injectabl e, quadrivalent, preservative free [facility] 01-17-2021 influenza, seasonal, injectable Dr. MarcoA Marie Work Phone: [facility] 05-28-2020 tetanus toxoid, redu christy diphtheria toxoid, and acellular pertussis vaccine, adsorbed Dr. Marco A Marie Work Phone: [facility] 08-09-2013 influenza virus vaccine, unspecified formulation Jim Plaza MD Work Phone: [facility] Work Phone: 08-05-2012 influenza virus vaccine, unspecified formulation Jim Plaza MD Work Phone: [facility] Work Phone: 08-26-2011 influenza virus vaccine, live, attenuated, for intranasal use Jim Plaza MD Work Phone: [facility] Work Phone: 07-31-2009 influenza virus vaccine, unspecified formulation Jim Plaza MD Work Phone: [facility] Work Phone: Payers Date Payer Category Payer Private Health Insurance [id number] 2023 Self-pay [id number] [facility] UE/PREF/HMO/PPO [id number] 2022 Unknown [id number]. 1.13.234.2 .7.3.640590.315 2022 Unknown [id number] 2021 Private Health Insurance [id number] 1984 Unknown [id number] 2.16.840.1.578458.3.579.2 .479 1984 Unknown [id number] 2.16.840.1.385417.3.579.2 .479 1984 Unknown [id number] 2.16.840.1.188340.3.579.2 .594 1984 Unknown [id number] 2.16.840.1.588500.3.579.2 .594 1984 Unknown [id number] 2.16.840.1.949806.3.579.2 .594 1984 Unknown [id number] 2.16.840.1.539827.3.579.2 .594 1984 Unknown [id number] 2.16.840.1.923276.3.579.2 .594 1984 Unknown [id number] 2.16840.1.777580.3.579.2 .69 1984 Unknown [id number] 2.840.1.105662.3.579.2 69 1984 Unknown [id number] 2.840.1.355838.3.579.2 .69 1984 Unknown [id number] 2.840.1.314144.3.579.2 .627 1984 Unknown [id number] 2.840.1.034439.3.579.2 .627 1984 Unknown [id number] 2.16840.1.189555.3.579.2 .902 1984 Unknown [id number] 2.840.1.164957.3.579.2 .90 1984 Unknown [id number] 2.840.1.445945.3.579.2 .90 1984 Unknown [id number] 2.840.1.704666.3.579.2 .90 1984 Unknown [id number] 2.16840.1.147719.3.579.2 .90 1984 Unknown [id number] 2.16840.1.942486.3.579.2 .90 1984 Unknown [id number] 2.16840.1.451573.3.579.2 .903 1984 Unknown [id number] 2.840.1.935872.3.579.2 .903 1984 Unknown [id number] 2.840.1.544870.3.579.2 .903 1984 Unknown [id number] 2.840.1.357199.3.579.2 .903 1984 Unknown [id number] 2.840.1.848889.3.579.2 .90 1984 Unknown [id number] .0.1.000570.3.579.2 .90 1984 Unknown [id number] 2.840.1.681825.3.579.2 .90 1984 Unknown [id number] .1.369469.3.579.2 .90 1984 Unknown [id number] .840.1.057005.3.579.2 .627 1984 Unknown [id number] .1.081120.3.579.2 .627 Unknown [id number] Unknown [id number] 840.1.487805.3.579.2 .462 Unknown [id number] .1.333848.3.579.2 .462 Unknown [id number] 840.1.612183.3.579.2 .462 Unknown [id number] 840.1.269684.3.579.2 .462 Unknown [id number] 840.1.787691.3.579.2 .462 Unknown [id number] 840.1.687838.3.579.2 .462 Unknown [id number] 840.1.165426.3.579.2 .462 Unknown [id number] 2.16.840.1.999463.3.579.2 .462 Unknown [id number] 2.16.840.1.674495.3.579.2 .462 Unknown [id number] 2.16.840.1.133489.3.579.2 .462 Unknown [id number] 2.16.840.1.030508.3.579.2 .462 Unknown [id number] 2.16.840.1.026720.3.579.2 .462 Unknown [id number] 2.16.840.1.483211.3.579.2 .462 Unknown [id number] 2.16.840.1.470875.3.579.2 .462 Unknown [id number] 2.16.840.1.762895.3.579.2 .462 Unknown [id number] 2.16840.1.725636.3.579.2 .462 Unknown [id number] 2.16.840.1.150651.3.579.2 .462 Unknown [id number] 2.16.840.1.989937.3.579.2 .462 Unknown [id number] 2.16840.1.380138.3.579.2 .462 Social History Date Type Detail Facility Start: 07-04-2016 End: 08-28-2022 Tobacco smoking status NJIS Unknown if ever smoked [facility] Start: 1985 Sex Assigned At Not on file [employer] Work Phone: Start: 09-26-2019 None [facility] [place] [place] Start: 09-26-2019 With Family [facility] [place] Start: 05-28-2020 Cigarettes [facility] [place] Start: 1985 Sex Assigned At Female [facility] Start: 07-19-2022 Tobacco smoking stat [facility] Occasional tobacco smoker [facility] Start: 11-05-1999 End: 02-22-2014 History of tobacco use Cigarette Smoker [facility] Start: 07-19-2022 End: 01-06-2025 Tobacco use and exposure Smokeless tobacco non-user [facility] Start: 07-09-2022 End: 07-19-2022 Exposure to SARS-CoV-2 (event) Not sure [facility] Start: 04-14-2019 Tobacco smoking status Light t obacco smoker (finding) [facility] Start: 08-15-2022 End: 09-17-2024 Tobacco smoking status NHIS Ex-smoker [facility] Start: 11-05-1999 End: 02-22-2014 History of tobacco use Current smoker [facility] Start: 08-15-2022 Alcohol intake 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 (finding) [facility] Start: 08-15-2022 Tobacco Comment less than 1/2 PPD [facility] Start: 12-30-2022 Alcohol intake Not Asked Ani chavis [facility] Start: 06-30-2023 Tobacco smoking stat NHIS Never smoked tobacco [facility] Start: 02-27-2024 End: 05-06-2025 Alcohol intake Ex-drinker (finding) [facility] Start: 06-30-2023 End: 02-20-2025 History of Social function [facility] Start: 06-30-2023 End: 02-20-2025 Tobacco use panel [facility] Start: 04-14-2019 End: 02-03-2025 Sex Female (finding) [facility] Sexual Orientation [facility] Functional Status Date Assessment Result Facility 07-11-2024 Functional Status Independent [facility] 07-11-2024 Functional Status Room check performed [facility] 10-03-2023 Functional Status Room check performed [facility] 10-03-2023 Functional Status [facility] Mental Status Date Assessment Result Facility 07-03-2025 Cognitive function Awake;Alert;Appropriat e [facility] Work Phone: 07-11-2024 Mental Status Orientation Oriented x 4 [facility] 07-11-2024 Mental Status [facility] 10-03-2023 Mental Status Orientation Oriented x 4 [facility] 10-03-2023 Mental Status [facility] 03-26-2022 Cognitive function Voice/Name [facility] Work Phone: Clinical Notes 03-02-2021 to 07-03-2025 Note Date & Type Note Facility 07-03-2025 Radiology Diagnostic study note [facility] Services [address] [place] [address] Abdomen/Pelvis WITH Contrast MR#: [id number] Acct: [id number] Name: MALISSA ELLIOTT Rep #: [id number] : 1985 F 40 From: Faisal Lamb MD PCP: Dr. Marco A Marie MD Status: RE G CLI Study:Abdomen/Pelvis WITH Contrast Date of Ex am: 07/03/25 Exam# [id number] Ordering Dr: Maico Petty MD PROCEDURE: ABDOMEN/PELVIS WITH CONTRAST 07/03/2025 REASON FOR EXAM: ABD PAIN Left lower quadrant pain. Several day history of rectal bleeding. TECHNIQUE: Procedure Code: [id number] Modality: CT Procedure: ABDOMEN/PELVIS WITH CONTRAST Coronal and Sagittal reconstruction series were provided. CONTRAST: Isovue-300 VOLUME: 100 mL One or more dose reduction techniques were used (e.g., Automated exposure control, adjustment of the mA and/or kV according to patient size, use of iterative reconstruction technique. RADIATION DOSE SUMMARY: CTDlvol: 14.6 mGy DLP: 918.76 mGycm COMPARISON: None FINDINGS: Lung bases: Minimal increased linear markings at the right lung base suggestive of basilar atelectasis. Liver: Normal size. No mass. Gallbladder: Questionable tiny gallstone along the dependent portion of the gallbladder lumen. Spleen: Normal size. Pancreas: Normal size without evidence of mass surrounding inflammation or ductal dilation. Adrenals: Unremarkable Kidneys: Normal renal sizes. No hydronephrosis. Bladder: Unremarkable Reproductive Organs: Prior hysterectomy. Adnexal regions are unremarkable. Small follicle seen in the left ovary. Bowel: Fecal material is seen in the rectosigmoid colon. Scattered sigmoid diverticula. No radiographic evidence of diverticulitis. Appendix: Unremarkable Lymph nodes: Unremarkable. Vasculature: The abdominal aorta and IVC are normal. Peritoneum / Retroperitoneum: Unremarkable Bones: Mild degenerative changes. CT/Abdomen/Pelvis WITH Contrast IMPRESSION: Questionable tiny gallstones along the dependent portion the gallbladder lumen. Scattered sigmoid diverticula. No radiographic evidence of diverticulitis. Fecal material is seen in the rectosigmoid colon. Reading Location: [id number] CC: Dr. Marco A Marie MD; Dr. Maico Petty MD ~ Passenger Conductor: Signed [facility] 05-23-2025 Hospital Discharge instructions Patient Education 05/23/2025 00:12:41 Chest Pain, Uncertain Cause Uncertain Causes of Chest Pain Chest pain can happen for a number of reasons. Sometimes the cause can't be determined. If your condition does not seem serious, and your pain does not appear to be coming from your heart, your healthcare provider may recommend watching it closely. Sometimes the signs of a serious problem take more time to appear. Many problems not related to your heart can cause chest pain. These include: Musculoskeletal. Costochondritis is an inflammation of the tissues around the ribs that can occur from trauma or overuse injuries, or a strain of the muscles of the chest wall Respiratory. Pneumonia, collapsed lung (pneumothorax), or inflammation of the lining of the chest and lungs (pleurisy) Gastrointestinal. Esophageal reflux, heartburn, ulcers, or gallbladder disease Anxiety and panic disorders Nerve compression and inflammation Rare miscellaneous problems such as aortic aneurysm (a swelling of the large artery coming out of the heart) or pulmonary embolism (a blood clot in the lungs) Home care After your visit, follow these recommendations: Rest today and avoid strenuous activity. Take any prescribed medicine as directed. Be aware of any recurrent chest pain and notice any changes Follow-up care Follow up with your healthcare provider if you do not start to feel better within 24 hours, or as advised. Call 911 Call 911 if any of these occur: A change in the type of pain: if it feels different, becomes more severe, lasts longer, or begins to spread into your shoulder, arm, neck, jaw or back Shortness of breath or increased pain with breathing Weakness, dizziness, or fainting Rapid heart beat Crushing sensation in your chest When to seek medical advice Call your healthcare provider right away if any of the following occur: Cough with dark colored sputum (phlegm) or blood Fever of 100.4 F (38 C) or higher, or as directed by your healthcare provider Swelling, pain or redness in one leg [phone] [employer]. [address] [place] [address]. All rights reserved. This information is not intended as a substitute for professional medical care. Always follow your healthcare professional's instructions. Follow Up Care 2025 22:11:07 With:MARCO A MARIE Address: [facility] [address] [address] [phone] [place] [facility] (1) When:2-4 days Comments:Follow-up closely with your doctor, return if any worsening or concerning symptoms as discussed. [facility] 05-23-2025 Emergency department Discharge summary Discharge Instructions Thank you for allowing [facility] to assist you with your healthcare needs. The following is important discharge information regarding your hospital visit. Diagnosis from Today's Visit Chest pain What to Do Next Instructions from Your Care Team No qualifying data available. Post Acute Orders No qualifying data available. You Need to Schedule the Following Appointments Follow Up with MARCO A MARIE When:Within 2-4 days Where:[address] [address] [phone] [facility] (1) Additional Information: Follow-up closely with your doctor, return if any worsening or concerning symptoms as discussed. Allergies Contrast dye Medications Please ask your primary doctor or pharmacist before taking any other medication not listed, including over the counter drugs, herbal medications, vitamins and or supplements as they may interact with your home medications. What How Much When Why Instructions Last Dose Unchanged aMILoride (aMILoride 5 mg oral tablet) Unchanged apixaban (Eliquis 2.5 mg oral tablet) Unchanged cloNIDine (cloNIDine 0.3 mg oral tablet) 1 tab(s) by mouth Two (2) times a day Hypertension Unchanged FLUoxetine (PROzac 20 mg oral capsule) 1 cap by mouth Once a day Unchanged hydrALAZINE (hydrALAZINE 50 mg oral tablet) Unchanged omeprazole (omeprazole 40 mg oral delayed release capsule) Unchanged potassium chloride (potassium chloride 10 mEq oral tablet, extended release) 1 tab(s) by mouth Two (2) times a day Duration: 7 Days Unchanged verapamil (verapamil 240 mg/ 12 hours oral tablet, extended release) Please take this list to your next doctor s visit. Bring all medications you take, including over the counter medications, herbals and other supplements with you to your doctor s visit. Patients and families are reminded to discard old lists and to update any records with all medication providers or retail pharmacies. Education Materials Uncertain Causes of Chest Pain Chest pain can happen for a number of reasons. Sometimes the cause can't be determined. If your condition does not seem serious, and your pain does not appear to be coming from your heart, your healthcare provider may recommend watching it closely. Sometimes the signs of a serious problem take more time to appear. Many problems not related to your heart can cause chest pain. These include: Musculoskeletal. Costochondritis is an inflammation of the tissues around the ribs that can occur from trauma or overuse injuries, or a strain of the muscles of the chest wall Respiratory. Pneumonia, collapsed lung (pneumothorax), or inflammation of the lining of the chest and lungs (pleurisy) Gastrointestinal. Esophageal reflux, heartburn, ulcers, or gallbladder disease Anxiety and panic disorders Nerve compression and inflammation Rare miscellaneous problems such as aortic aneurysm (a swelling of the large artery coming out of the heart) or pulmonary embolism (a blood clot in the lungs) Home care After your visit, follow these recommendations: Rest today and avoid strenuous activity. Take any prescribed medicine as directed. Be aware of any recurrent chest pain and notice any changes Follow-up care Follow up with your healthcare provider if you do not start to feel better within 24 hours, or as advised. Call 911 Call 911 if any of these occur: A change in the type of pain: if it feels different, becomes more severe, lasts longer, or begins to spread into your shoulder, arm, neck, jaw or back Shortness of breath or increased pain with breathing Weakness, dizziness, or fainting Rapid heart beat Crushing sensation in your chest When to seek medical advice Call your healthcare provider right away if any of the following occur: Cough with dark colored sputum (phlegm) or blood Fever of 100.4 F (38 C) or higher, or as directed by your healthcare provider Swelling, pain or redness in one leg [phone] [employer]. [address] [place] [address], [place] [address]. All rights reserved. This information is not intended as a substitute for professional medical care. Always follow your healthcare professional's instructions. Additional Information VACCINATE! IT SAVES LIVES! Members of the community who have not yet received the COVID-19 vaccine and would like to receive it can visit one of [facility] vaccine clinics. There are many vaccine clinic locations within the [facility]. For locations and available times, please visit [email or web address] [email or web address] It is important to note that some COVID mobile vaccine clinics are held outdoors and may be canceled in rainy or stormy conditions. To learn more about pediatric vaccinations (ages 5-11), we invite you to visit the [employer] Children[facility] webpage. https://[email or web address]/p [email or web address]-Hwuab-Gxrxacmgfro-Freq vlkaus-Blsky-Vklyihaiw.html To learn more about the COVID-19 vaccine, we invite you to visit the CDC website for a list of frequently asked questions. https://www.cdc.gov/coronavirus/ 2019-ncov/vaccines/faq.html [facility] Patient Portal Access Instructions: Stay connected with your healthcare team and access your personal medical information anytime with the [employer] Patient Portal. If you would like a full copy of your medical records please contact the [facility] Medical Records Department Sunday through Sunday between 8a.m. and 4:30p.m. Please follow the directions below to access the portal: 1.Access the email account you provided upon registration to the hospital.2.Look for an invitation email from [facility].3.Open the email and access the invitation link: Accept Invitation to [facility]4.Fill in the required nova to create your account. Sign into www.[employer] with your username and password that you [...] you will allow to register on the [employer] Patient Portal for access to your information. You can also access the [employer] Patient Portal on the [employer] michael. Simply click on Health Records under Health Data and then click on the [employer] logo. HOW TO SAFELY DISPOSE OF PRESCRIPTION [...] Call your local pharmacy or go to [email or web address] to find one close to you.3.Make use of household items: Use cat litter or old coffee grounds to dispose medications if other options are not available. Mix your drugs with these household products, seal them in an airtight container and throw it into the garbage. Call [facility]: [phone] to be sure your drugs can be [...] a CHART COPY Signatures Patient Education Materials Chest Pain, Uncertain Cause Medication Leaflets My discharge plan and instructions have been reviewed and explained to me and I,MALISSA ELLIOTT understand my current condition and have read and understand these discharge instructions. I have received a written copy of the plan/instructions. If I have questions, I am aware that I should contact my doctor. Patient/Cloth Inspector Signature: Date/Time: Relationship to Patient: Witness Name/Signature: Date/Time: [facility] 2025 Note Exam Date Time Procedure Performing Provider Status 05/22/25 10:48 PM XR Chest 1 View RODO VILLAREAL MD; Auth (Verified) [id number] ORIGINAL EXAMINATION: ONE XRAY VIEW OF THE CHEST 2025 10:49 pm COMPARISON: Radiograph of the chest May 03, 2021 HISTORY: ORDERING SYSTEM PROVIDED HISTORY: Reason for Exam: chest pain FINDINGS: Cardiomediastinal silhouette is unchanged in size. Costophrenic angles are sharp. No radiographic pneumothorax. No focal consolidation. Left lower neck clips. IMPRESSION: No focal consolidation. Interpreted by: Rodo Villareal Preliminary Report By: Rodo Villareal Electronically signed By Rodo Villareal Dictated Date: 2025 11:01:38 PM Prelim Date: 2025 11:05:48 PM Sign Date: 2025 11:05:48 PM Ordering Provider: CARINE BARRAZA [facility]07-18-2025 Note* Exam Date Time Procedure Performing Provider Status 05/22/25 10:19 PM EKG [ED AO] - CV CARINE BARRAZA MD; Auth (Verified) ECG Final Report Sinus rhythm Electronic Signature: CARINE BARRAZA MD 2025 22:25:53 [facility]07-02-2025 NoteLeft heel tingling Patient is a pleasant 39-year-old female following up greater than 3 months status post left foot plantar fasciotomy. At this point states that all in all she is feeling really quite well but has a weird bit of tingling in her arch. No new trauma states overall she is doing fine. She does state that she used the cross tissue massaging for approximately 5 weeks states it was going fine no new injuries. Physical Vascular: DP PT pulses are easily palpable. CFT is normal. Derm: No erythema no open wounds no ulcers no rashes no deep nodules. Neuro: Light touch is intact approximately but subjectively to the distal edge of her incision site. Negative Elvin sign. Musculoskeletal: Minimal pain at best to the plantar fascial origin, substantially improved compared to preoperatively. Patient is a pleasant 47-year-old female status post left foot plantar fasciotomy with substantial improvement but some mild subjective tingling. - At this time, did either have her proceed with doing nothing as this should be self-limiting versus adding an oral Medrol Dosepak. She ultimately chose an oral Medrol Dosepak to help with the nerve improvement calm down. If no better by fall which is July or August, could consider dexamethasone injection. Follow-up as needed or in the fall. AUTHENTICATED BY CM COBIAN JR., ON 05/06/[facility]25 [facility] of Present illness Narrative* Cm Cobian Jr., [facility] - 05/06/2025 3:48 PM EDT Left heel tingling Patient is a pleasant 39-year-old female following up greater than 3 months status post left foot plantar fasciotomy. At this point states that all in all she is feeling really quite well but has a weird bit of tingling in her arch. No new trauma states overall she is doing fine. She does state that she used the cross tissue massaging for approximately 5 weeks states it was going fine no new injuries. Physical Vascular: DP PT pulses are easily palpable. CFT is normal. Derm: No erythema no open wounds no ulcers no rashes no deep nodules. Neuro: Light touch is intact approximately but subjectively to the distal edge of her incision site. Negative Elvin sign. Musculoskeletal: Minimal pain at best to the plantar fascial origin, substantially improved compared to preoperatively. Patient is a pleasant 47-year-old female status post left foot plantar fasciotomy with substantial improvement but some mild subjective tingling. - At this time, did either have her proceed with doing nothing as this should be self-limiting versus adding an oral Medrol Dosepak. She ultimately chose an oral Medrol Dosepak to help with the nerveimprovement calm down. If no better by fall which is July or August, could consider dexamethasone injection. Follow-up as needed or in the fall. documented in this [id number] NoteStatus post left foot plantar fasciotomy date of surgery 01-19. Patient is a pleasant 39-year-old female status post left foot open plantar fasciotomy for heel pain. She states that she is doing great. No pain today. Declines any shortness of breath calf pain or chest pain. Physical Vascular: DP PT pulses are easily palpable. Calf is soft and supple. Derm: Incision is well coapted, there is no gapping no draining no streaking no fluctuance or crepitation no signs of infection. Neuro: Fully intact. Musculoskeletal: No pain with compression today to the fascial origin. Assessment and plan: Patient is a pleasant 39-year-old female postop week 3status post left foot plantar fasciotomy. - Incision is well-healed. - Okay to start vitamin E oil cross tissue massage, 5 minutes at a time 2-3 times per day. Discontinue cam boot. And return to tennis shoes. Follow-up in 3 months for long-term follow-up. AUTHENTICATED BY CM COBIAN JR., ON 02/20/2025 15:36:42[facility]04-18-2025 History of Present illness Narrative* Cm Cobian Jr., DPM - 02/20/2025 3:35 PM EDT Status post left foot plantar fasciotomy date of surgery 01-19. Patient is a pleasant 39-year-old female status post left foot open plantar fasciotomy for heel pain. She states that she is doing great. No pain today. Declines any shortness of breath calf pain or chest pain. Physical Vascular: DP PT pulses are easily palpable. Calf is soft and supple. Derm: Incision is well coapted, there is no gapping no draining no streaking no fluctuance or crepitation no signs of infection. Neuro: Fully intact. Musculoskeletal: No pain with compression today to the fascial origin. Assessment and plan: Patient is a pleasant 39-year-old female postop week 3status post left foot plantar fasciotomy. - Incision is well-healed. - Okay to start vitamin E oil cross tissue massage, 5 minutes at a time 2-3 times per day. Discontinue cam boot. And return to tennis shoes. Follow-up in 3 months for long-term follow-up. documented in this [id number] Instructions* Patient Instructions* Cm Cobian Jr., DPM - 02/20/2025 3:28 PM EDT Vitamin E. Oil cross tissue massaging. 5 minutes 2-3 times per day documented in this [id number] NoteStatus post left foot plantar fasciotomy date of surgery 01-19. Patient is a pleasant 39-year-old female status post left foot open plantar fasciotomy for heel pain. She states that she is doing great. No pain today. Declines any shortness of breath calf pain or chest pain. Physical Vascular: DP PT pulses are easily palpable. Calf is soft and supple. Derm: Incision is well coapted, there is no gapping no draining no streaking no fluctuance or crepitation no signs of infection. Neuro: Fully intact. Musculoskeletal: No pain with compression today to the fascial origin. Assessment and plan: Patient is a pleasant 39-year-old female postop week 3status post left foot plantar fasciotomy. - Incision is well-healed. Can apply topical Betadine once per day for the next 7 days incisions let this mature well. No Steri-Strips require substantial improved. Continue cam boot. AUTHENTICATED BY CM COBIAN JR., ON 02/13/2025 16:23:21[facility]04-11-2025 History of Present illness Narrative* Cm Cobian Jr., DPM - 02/13/2025 4:21 PM EDT Status post left foot plantar fasciotomy date of surgery 01-19. Patient is a pleasant 39-year-old female status post left foot open plantar fasciotomy for heel pain. She states that she is doing great. No pain today. Declines any shortness of breath calf pain or chest pain. Physical Vascular: DP PT pulses are easily palpable. Calf is soft and supple. Derm: Incision is well coapted, there is no gapping no draining no streaking no fluctuance or crepitation no signs of infection. Neuro: Fully intact. Musculoskeletal: No pain with compression today to the fascial origin. Assessment and plan: Patient is a pleasant 39-year-old female postop week 3status post left foot plantar fasciotomy. - Incision is well-healed. Can apply topical Betadine once per day for the next 7 days incisions let this mature well. No Steri-Strips require substantial improved. Continue cam boot. documented in this [id number] NoteStatus post left foot plantar fasciotomy date of surgery 01-19. Patient is a pleasant 39-year-old female status post left foot open plantar fasciotomy for heel pain. She states that she is doing great. No pain today. Declines any shortness of breath calf pain or chest pain. Physical Vascular: DP PT pulses are easily palpable. Calf is soft and supple. Derm: Incision is well coapted, there is no gapping no draining no streaking no fluctuance or crepitation no signs of infection. Neuro: Fully intact. Musculoskeletal: No pain with compression today to the fascial origin. Assessment and plan: Patient is a pleasant 39-year-old female postop week 1 status post left foot plantar fasciotomy. - Incision is well-healed. After an alcohol prep all stitches removed. She does have some very superficial gapping medially therefore Steri-Strip was applied. Keep this covered with a Band-Aid for the next week follow-up in 1 week to down titrate from cam boot. AUTHENTICATED BY CM COBIAN JR., ON 02/06/2025 11:14:17[facility]04-04-2025 History of Present illness Narrative* Cm Cobian Jr., DPM - 02/06/2025 11:13 AM EDT Status post left foot plantar fasciotomy date of surgery 01-19. Patient is a pleasant 39-year-old female status post left foot open plantar fasciotomy for heel pain. She states that she is doing great. No pain today. Declines any shortness of breath calf pain or chest pain. Physical Vascular: DP PT pulses are easily palpable. Calf is soft and supple. Derm: Incision is well coapted, there is no gapping no draining no streaking no fluctuance or crepitation no signs of infection. Neuro: Fully intact. Musculoskeletal: No pain with compression today to the fascial origin. Assessment and plan: Patient is a pleasant 39-year-old female postop week 1 status post left foot plantar fasciotomy. - Incision is well-healed. After an alcohol prep all stitches removed. She does have some very superficial gapping medially therefore Steri-Strip was applied. Keep this covered with a Band-Aid for the next week follow-up in 1 week to down titrate from cam boot. documented in this [id number] NoteStatus post left foot plantar fasciotomy date of surgery 01-19. Patient is a pleasant 39-year-old female status post left foot open plantar fasciotomy for heel pain. She states that she is doing great. No pain today. Declines any shortness of breath calf pain or chest pain. Physical Vascular: DP PT pulses are easily palpable. Calf is soft and supple. Derm: Incision is well coapted, there is no gapping no draining no streaking no fluctuance or crepitation no signs of infection. Neuro: Fully intact. Musculoskeletal: No pain with compression today to the fascial origin. Assessment and plan: Patient is a pleasant 39-year-old female postop week 1 status post left foot plantar fasciotomy. Dressing change today. Continue cam boot ambulation follow-up in 1 week for postop check. And suture removal. AUTHENTICATED BY CM COBIAN JR., ON 01/30/2025 14:17:[address] [place], [place] [id number] History of Present illness Narrative* Cm Cobian Jr., DPM - 01/30/2025 2:16 PM EDT Status post left foot plantar fasciotomy date of surgery 01-19. Patient is a pleasant 39-year-old female status post left foot open plantar fasciotomy for heel pain. She states that she is doing great. No pain today. Declines any shortness of breath calf pain or chest pain. Physical Vascular: DP PT pulses are easily palpable. Calf is soft and supple. Derm: Incision is well coapted, there is no gapping no draining no streaking no fluctuance or crepitation no signs of infection. Neuro: Fully intact. Musculoskeletal: No pain with compression today to the fascial origin. Assessment and plan: Patient is a pleasant 39-year-old female postop week 1 status post left foot plantar fasciotomy. Dressing change today. Continue cam boot ambulation follow-up in 1 week for postop check. And suture removal. documented in this [id number] Radiology Diagnostic study note [facility] [address], [place] [address] Brain/Head without Contrast MR#: [id number] Acct: [id number] Name: MALISSA ELLIOTT BRIANNA Rep #: [id number] : 1985 F 39 From: Thomas Dacosta MD PCP: Dr. Marco A Marie MD Status: RE G CLI Study:Brain/Head without Contrast Date of Exa m: 01/29/25 Exam# [id number] Ordering Dr: Marco A Marie MD PROCEDURE: BRAIN/HEAD WITHOUT CONTRAST 01/29/2025 REASON FOR EXAM: RECENT START ON ELIQUIS, 4 DAYS LATER BLUM, FATIGUE, HAS DYSMETRIA, TECHNIQUE: Head CT without intravenous contrast. Coronal and Sagittal reconstruction serieswere provided. One or more dose reduction techniques were used (e.g., Automated exposure control, adjustment of the mA and/or kV according to patient size, use of iterative reconstruction technique. RADIATION DOSE SUMMARY: DLP: 745.49 mGycm COMPARISON: None. FINDINGS: There is no acute intracranial hemorrhage, mass effect or midline shift. There are no abnormal extra-axial fluid collections present. The ventricles and sulci are within normal limits. The calvarium is intact. Visualized paranasal sinuses are unremarkable. The mastoids are well aerated. CT/Brain/Head without Contrast IMPRESSION: No acute intracranial hemorrhage, mass effect or midline shift. Reading Location: [id number] CC: Dr. Marco A Marie MD ~ Passenger Conductor: Signed [facility]03-21-2025 NoteStatus post left foot plantar fasciotomy date of surgery 01-19. Patient is a pleasant 39-year-old female status post left foot open plantar fasciotomy for heel pain. She states that she is doing great. Her pain has gotten better throughout the week and no longer on any pain pills. Declines any shortness of breath calf pain or chest pain. Physical Vascular: DP PT pulses are easily palpable. Calf is soft and supple. Derm: Incision is well coapted, there is no gapping no draining no streaking no fluctuance or crepitation no signs of infection. Neuro: Fully intact. Musculoskeletal: No pain with compression today to the fascial origin. Assessment and plan: Patient is a pleasant 39-year-old female postop week 1 status post left foot plantar fasciotomy. Dressing change today. Continue cam boot ambulation follow-up in 1 week for postop check. AUTHENTICATED BY CM COBIAN JR., ON 01/23/2025 08:55:01[facility]03-21-2025 History of Present illness Narrative* Cm Cobian Jr., [facility] - 01/23/2025 8:52 AM EDT Status post left foot plantar fasciotomy date of surgery 01-19. Patient is a pleasant 39-year-old female status post left foot open plantar fasciotomy for heel pain. She states that she is doing great. Her pain has gotten better throughout the week and no longer on any pain pills. Declines any shortness of breath calf pain or chest pain. Physical Vascular: DP PT pulses are easily palpable. Calf is soft and supple. Derm: Incision is well coapted, there is no gapping no draining no streaking no fluctuance or crepitation no signs of infection. Neuro: Fully intact. Musculoskeletal: No pain with compression today to the fascial origin. Assessment and plan: Patient is a pleasant 39-year-old female postop week 1 status post left foot plantar fasciotomy. Dressing change today. Continue cam boot ambulation follow-up in 1 week for postop check. documented in this [id number] NoteCalled patient postoperatively to make sure she is doing well. Overall doing fine. Is having more pain than expected and had to get a set of crutches to get around and set of weightbearing in the boot. Follow-up in 2 days at original appointment time. AUTHENTICATED BY CM COBIAN JR., ON 01/21/2025 16:52:14[facility]03-19-2025 History of Present illness Narrative* Cm Cobian Jr., DPM - 01/21/2025 4:51 PM EDT Called patient postoperatively to make sure she is doing well. Overall doing fine. Is having more pain than expected and had to get a set of crutches to get around and set of weightbearing in the boot. Follow-up in 2 days at original appointment time. documented in this [id number] History and physical note* Cm Cobian Jr., DPM - 01/16/2025 8:36 AM EDT HPI Chief Complaint Patient presents with Follow-up H&P Patient is a pleasant 39-year-old female who comes in today to sign her consent for continued left foot pain and left foot surgery. States that she is tired of her foot hurting she has done everything conservatively possible and at this point she is very ready for surgery. States that she is tired of this hurting tired of the pain directly to the medial component. Past Medical History: Diagnosis Date Anxiety Complication of anesthesia hypertension during surgery Depression Hypertension Juan J's syndrome TIA (transient ischemic attack) [facility] - 2006 Past Surgical History: Procedure Laterality Date BONE RESECTION, RIB HYSTERECTOMY OVARIAN CYST REMOVAL Social History Socioeconomic History Marital status: Tobacco Use Smoking status: Former Average packs/day: 0.3 packs/day for 17.0 years (4.3 ttl pk-yrs) Types: Cigarettes Start date: 1999 Smokeless tobacco: Never Vaping Use Vaping status: Never Used Substance and Sexual Activity Alcohol use: Not Currently Drug use: Never Review of Systems Physical Exam Patient is AOx3. Linear and appropriate humor and thought process. Derm: No erythema no open wounds no ulcers no rashes noted nodules. Neuro: Light touch is normal Babinski's is normal. Musculoskeletal: Muscle strength is 5 out of 5. Does have continued pain with direct palpation to the medial edge of the plantar fascial origin. Negative lateral calcaneal squeeze test. Ankle subtalar range of motion is full and pain- free without any clicking or catching. MRI reviewed again consistent with plantar fasciitis. Labs reviewed within normal limits as well as clearance reviewed. Some mention of possible Carver Parkinson's White though per imaging sounds like inconsistent with the diagnosis. She was advised to continue her verapamil nonetheless which she takes at nighttime. Impression/Plan Problem List Items Addressed This Visit Plantar fasciitis - Primary Relevant Medications apixaban (Eliquis) 2.5 mg Tab oxyCODONE-acetaminophen (PERCOCET) 5-325 mg per tablet Patient is a pleasant 39-year-old female with continued recalcitrant left foot plantar fasciitis and heel spur syndrome with pain. At this point she has failed many months of conservative therapy including NSAIDs padding steroids therapy sugar modification lifestyle modification all to no avail. At this time she is electing undergo surgical invention. Surgical plan is: Left foot open plantar fasciotomy. -This will be done at [facility] on Sunday. Primary risks are DVT dehiscence pain tingling burning scarring infection. Despite this risk,she does wish to proceed. No guarantees are implied or made. Consent was signed document the EMR. For DVT prophylaxis, did add oral Eliquis 2.5 mg twice daily for 21 days 42 tabs 0 refills. For postop pain control with a clean OARRS report did add oral Percocet 5/325 every 6 hours x 7 days 28 tabs 0 refills. N.p.o. Sunday at midnight. Follow-up postop week 1 protected weightbearing for 4 weeks. 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 [id number] History and physical note* Cm Cobian Jr., DPM - 01/16/2025 8:36 AM EDT HPI Chief Complaint Patient presents with Follow-up H&P Patient is a pleasant 39-year-old female who comes in today to sign her consent for continued left foot pain and left foot surgery. States that she is tired of her foot hurting she has done everything conservatively possible and at this point she is very ready for surgery. States that she is tired of this hurting tired of the pain directly to the medial component. Past Medical History: Diagnosis Date Anxiety Complication of anesthesia hypertension during surgery Depression Hypertension Juan J's syndrome TIA (transient ischemic attack) [facility] - 2006 Past Surgical History: Procedure Laterality Date BONE RESECTION, RIB HYSTERECTOMY OVARIAN CYST REMOVAL Social History Socioeconomic History Marital status: Tobacco Use Smoking status: Former Average packs/day: 0.3 packs/day for 17.0 years (4.3 ttl pk-yrs) Types: Cigarettes Start date: 1999 Smokeless tobacco: Never Vaping Use Vaping status: Never Used Substance and Sexual Activity Alcohol use: Not Currently Drug use: Never Review of Systems Physical Exam Patient is AOx3. Linear and appropriate humor and thought process. Derm: No erythema no open wounds no ulcers no rashes noted nodules. Neuro: Light touch is normal Babinski's is normal. Musculoskeletal: Muscle strength is 5 out of 5. Does have continued pain with direct palpation to the medial edge of the plantar fascial origin. Negative lateral calcaneal squeeze test. Ankle subtalar range of motion is full and pain- free without any clicking or catching. MRI reviewed again consistent with plantar fasciitis. Labs reviewed within normal limits as well as clearance reviewed. Some mention of possible Carver Parkinson's White though per imaging sounds like inconsistent with the diagnosis. She was advised to continue her verapamil nonetheless which she takes at nighttime. Impression/Plan Problem List Items Addressed This Visit Plantar fasciitis - Primary Relevant Medications apixaban (Eliquis) 2.5 mg Tab oxyCODONE-acetaminophen (PERCOCET) 5-325 mg per tablet Patient is a pleasant 39-year-old female with continued recalcitrant left foot plantar fasciitis and heel spur syndrome with pain. At this point she has failed many months of conservative therapy including NSAIDs padding steroids therapy sugar modification lifestyle modification all to no avail. At this time she is electing undergo surgical invention. Surgical plan is: Left foot open plantar fasciotomy. -This will be done at [facility] on Sunday. Primary risks are DVT dehiscence pain tingling burning scarring infection. Despite this risk,she does wish to proceed. No guarantees are implied or made. Consent was signed document the EMR. For DVT prophylaxis, did add oral Eliquis 2.5 mg twice daily for 21 days 42 tabs 0 refills. For postop pain control with a clean OARRS report did add oral Percocet 5/325 every 6 hours x 7 days 28 tabs 0 refills. N.p.o. Sunday at midnight. Follow-up postop week 1 protected weightbearing for 4 weeks. 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 documented in this [id number] NotePre-Operative H&P Assessment and Plan Plantar fasciitis Pt scheduled to undergo a left foot plantar fasciotomy with Dr. Cobian on 01/19/2025. 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 BP is well controlled at this office visit, 127/85. Continue medical therapy as prescribed. Malissa does report being told after a previous surgery that she had high blood pressure. This was done at [facility]. I will call and get anesthesia records to be scanned into the chart. 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 Today Malissa denies any palpitations, lightheadedness, chest pain, or dyspnea with exertion. Continue Verapamil perioperatively. Per EP conclusion, the electrophysiology study was entirely normal, but most notably, I could not provoke any accessory pathway function and certainly no inducible tachycardia. I again reviewed the EKG that was recorded during her emergency room visit at [facility] and even in hindsight, with the results of this electrophysiologic study, I do believe that there is evidence of accessory pathway function. However, given today's results, in the absence of any documented tachyarrhythmia, I believe that she is in an excellent prognostic group. She does not have any increased risk of malignant atrial or ventricular arrhythmias in association with this suggested pattern of WPW. I do not believe that she requires any medical therapy for this and I also do not believe that she requires any specific monitoring for WPW TIA (transient ischemic attack) 2006. Unknown etiology. No issues since. Pre-op examination FERNANDEZ score indicates a less than 1% risk of IN or cardiac arrest, intraoperatively or up to 30 days post-op. Pt denies chest pain, abnormal SOB with exertion, palpitations, syncope or near syncopal episodes, PND, orthopnea, or pedal edema. METS greater than 4. Per 2014 ACC/AHA guidelines, no further cardiac testing is indicated. Apfel score of 3; 61% 24-hour risk of PONV. Pt denies previous complications with anesthesia. Malissa does report hypertension during previous gynecological procedure. According to the stop bang assessment, the patient would be considered no risk for RODNEY. Vital signs are within acceptable limits for surgery. CBC pending. Chronic conditions appear stable for surgery at this time. Chief Complaint Patient presents with Pre-operative Medical Risk Stratification History of Present Illness Malissa lEliott is a 39 y.o. female who presents at the request of Dr. Cobian prior to left foot plantar fasciotomy. Malissa has a past medical history that consists of anxiety, depression, hypertension, Juan J's syndrome, TIA, and arrhythmia. She does report a history of hypertension with anesthesia She denies cardiopulmonary complaints. CBC pending. Preoperative medication instructions have been provided. Please see below regarding status of active medical conditions and assessment and plan regarding details of preoperative medical risk stratification. Past Medical History: Diagnosis Date Anxiety Complication of anesthesia hypertension during surgery Depression Hypertension Juan J's syndrome TIA (transient ischemic attack) [facility] - 2006 No past medical history pertinent negatives. Past Surgical History: Procedure Laterality Date BONE RESECTION, RIB HYSTERECTOMY OVARIAN CYST REMOVAL Social History Tobacco Use Smoking status: Former Average packs/day: 0.3 packs/day for 17.0 years (4.3 ttl pk-yrs) Types: Cigarettes Start date: 1999 Smokeless tobacco: Never Substance Use Topics Alcohol use: Not Currently Family History Problem Relation Age of Onset Epilepsy Mother Heart attack Father Hypertension Father No Known Problems Half-Sister Asthma Natural Sister Prior to Admission medications taking for visit date 01/06/25 Medication Sig Taking? Discontinued? aMILoride (MIDAMOR) 5 MG tablet Take 2 tablets twice a day by oral route for 90 days. Yes cloNIDine HCL (CATAPRES) 0.2 MG tablet BID . Yes hydrALAZINE (APRESOLINE) 50 MG tablet Take 1 tablet 3 times a day by oral route for 90 days. Yes Lexapro 10 mg tablet PM . Yes verapamil sr (CALAN-SR) 240 MG er tablet PM . Yes verapamil sr (CALAN-SR) 180 MG 12 or 24hr tablet Yes Allergies Allergen Reactions Adhesive Rash Ct: Iodinated Contrast- Oral And Iv Dye Itching and Rash Review of Systems Constitution: (negative) HENT: abnormal dentition Eyes: (negative) Respiratory: (negative) Cardiovascular: (negative) - Exercise capacity: Greater than 4 METS Gastrointestinal: (negative) Genitourinary: (negative) Musculoskeletal: - Intermittent left foot pain Skin: (negative) Neurological: (negative) Hematological: (negative) Physical Exam BP 127/85 Pulse 72 Ht 5' 7 Wt 79.8 kg (176 lb) LMP (LMP Unknown) SpO2 97% BMI 27.57 kg/m Constitutional: She is oriented to person, place, and time. (more content not included)...[facility]03-04-2025 History of Present illness Narrative* Cheri Valente, DRUG COUNSELOR - 01/06/2025 4:52 PM EST Pre-Operative H&P Assessment and Plan Plantar fasciitis Pt scheduled to undergo a left foot plantar fasciotomy with Dr. Cobian on 01/19/2025. 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 BP is well controlled at this office visit, 127/85. Continue medical therapyas prescribed. Malissa does report being told after a previous surgery that she had high blood pressure. This was done at [facility]. I will call and get anesthesia records to be scanned into the chart. 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 Today Malissa denies any palpitations, lightheadedness, chest pain, or dyspnea with exertion. Continue Verapamil perioperatively. Per EP conclusion, the electrophysiology study was entirely normal, but most notably, I could not provoke any accessory pathway function and certainly no inducible tachycardia. I again reviewed the EKG that was recorded during her emergency room visit at [facility] and even in hindsight, with the results of this electrophysiologic study, I do believe that there is evidence of accessory pathway function. However, given today's results, in the absence of any documented tachyarrhythmia, I believe that she is in an excellent prognostic group. She does not have any increased risk of malignant atrial or ventricular arrhythmias in association with this suggested pattern of WPW. I do not believe that she requires any medical therapy for this and I also donot believe that she requires any specific monitoring for WPW TIA (transient ischemic attack) 2006. Unknown etiology. No issues since. Pre-op examination FERNANDEZ score indicates a less than 1% risk of IN or cardiac arrest, intraoperatively or up to 30 days post-op. Pt denies chest pain, abnormal SOB with exertion, palpitations, syncope or near syncopal episodes, PND, orthopnea, or pedal edema. METS greater than 4. Per 2014 ACC/AHA guidelines, no further cardiac testing is indicated. Apfel score of 3; 61% 24-hour risk of PONV. Pt denies previous complications with anesthesia. Lv report hypertension during previous gynecological procedure. According to the stop bang assessment, the patient would be considered no risk for RODNEY. Vital signs are within acceptable limits for surgery. CBC pending. Chronic conditions appear stablefor surgery at this time. Chief Complaint Patient presents with Pre-operative Medical Risk Stratification History of Present Illness Malissa Elliott is a 39 y.o. female who presents at the request of Dr. Cobian prior to left foot plantar fasciotomy. Malissa has a past medical history that consists of anxiety, depression, hypertension, Juan J's syndrome, TIA, and arrhythmia. She does report a history of hypertension with anesthesia She denies cardiopulmonary complaints. CBC pending. Preoperative medication instructions have been provided. Please see below regarding status of active medical conditions and assessment and plan regarding details of preoperative medical risk stratification. Past Medical History: Diagnosis Date Anxiety Complication of anesthesia hypertension during surgery Depression Hypertension Juan J's syndrome TIA (transient ischemic attack) [facility] - 2006 No past medical history pertinent negatives. Past Surgical History: Procedure Laterality Date BONE RESECTION, RIB HYSTERECTOMY OVARIAN CYST REMOVAL Social History Tobacco Use Smoking status: Former Average packs/day: 0.3 packs/day for 17.0 years (4.3 ttl pk-yrs) Types: Cigarettes Start date: 1999 Smokeless tobacco: Never Substance Use Topics Alcohol use: Not Currently Family History Problem Relation Age of Onset Epilepsy Mother Heart attack Father Hypertension Father No Known Problems Half-Sister Asthma Natural Sister Prior to Admission medications taking for visit date 01/06/25 Medication Sig Taking? Discontinued? aMILoride (MIDAMOR) 5 MG tablet Take 2 tablets twice a day by oral route for 90 days. Yes cloNIDine HCL (CATAPRES) 0.2 MG tablet BID . Yes hydrALAZINE (APRESOLINE) 50 MG tablet Take 1 tablet 3 times a day by oral route for 90 days. Yes Lexapro 10 mg tablet PM . Yes verapamil sr (CALAN-SR) 240 MG er tablet PM . Yes verapamil sr (CALAN-SR) 180 MG 12 or 24hr tablet Yes Allergies Allergen Reactions Adhesive Rash Ct: Iodinated Contrast- Oral And Iv Dye Itching and Rash Review of Systems Constitution: (negative) HENT: abnormal dentition Eyes: (negative) Respiratory: (negative) Cardiovascular: (negative) - Exercise capacity: Greater than 4 METS Gastrointestinal: (negative) Genitourinary: (negative) Musculoskeletal: - Intermittent left foot pain Skin: (negative) Neurological: (negative) Hematological: (negative) Physical Exam BP 127/85 Pulse 72 Ht 5' 7 Wt 79.8 kg (176 lb) LMP (LMP Unknown) SpO2 97% BMI 27.57 kg/m Constitutional: She is oriented to person, place, and time. She appears well developed and well-nourished. Skin: Skin is warm, dry and intact. Eyes: Conjunctivae and EOM are normal. Pupils are equal, round, and reactive to light. HENT: Right Ear: External ear normal. Left Ear: External ear normal. Nose: Nose normal. Mouth/Throat: Abnormal dentition. Neck: Normal range of motion. No tracheal deviation present. Cardiovascular: Normal rate and regular rhythm. Pulmonary/Chest: Effort normal and breath sounds normal. Abdominal: Soft. Musculoskeletal: Normal range of motion. She exhibits no edema. Neurological: She is alert and oriented to person, place, and time. Psychiatric: She has a normal mood and affect. Her behavior is normal. Cognition and memory are normal. Data Preprocedure Sleep Apnea Assessment - No Risk (0/3) Sleep Apnea in the patient's Active Problem List or Medical History: no 1. History of apparent airway obstruction during sleep: (1 point for this category) Do you snore frequently, or snore loud enough to be heard through a closed door?: no Do you awaken from sleep with a choking sensation or have periods during sleep when someone has observed you pausing between breaths?: no 2. Somnolence of the patient: (1 point for this category) Do you find yourself frequently sleepy despite adequate hours of sleep the night before?: no Do you fall asleep easily while: watching TV, reading, riding in or driving a car?: no 3. Predisposing physician characteristics: (1 point for this category, 2 points if the BMI >= 40) BMI (Calculated): 27.6 Neck Circumference (inches): 14 inches Recent Results (from the past 1825 days) XR SHOULDER LEFT 2+ VIEWS (STANDARD) 07/29/2024 (Final) Status: Normal Narrative EXAMINATION: XR SHOULDER LEFT 2+ VIEWS (STANDARD) 07/29/2024 5:12 pm HISTORY: ORDERING SYSTEM PROVIDED HISTORY: fall, TECHNOLOGIST PROVIDED HISTORY: Injury/Trauma Reason for exam: fall a week or so ago and has continued pain and discomfort in the shoudler with increased pain when moving/using the arm Cancer History: u Surgery, RadiationHistory: u Encounter Type: Initial Mechanism of injury: fall ORDERING SYSTEM PROVIDED DIAGNOSIS CODES: COMPARISON: None FINDINGS: Three views were done of the left shoulder. Bone density is unremarkable. No fracture or dislocation or bony lesions are noted. No advanced degenerative changes are noted. The surrounding soft tissues are unremarkable. No soft tissue mass or foreign body or chronic calcifications are noted. Postsurgical clips are noted in the supraclavicular region medially. There appears to be a chronic calcification overlying the region of the left apical region Impression 1. Nonacute plain films of the left shoulder. 2. Additional changes as discussed above. Workstation ID: [id number] documented in this [id number] Evaluation + Plan note* Assessment & Plan Note - Cheri Valente CNP - 01/06/2025 4:51 PM EST Associated Problem(s): Pre-op examination FERNANDEZ score indicates a less than 1% risk of IN or cardiac arrest, intraoperatively or up to 30 days post-op. Pt denies chest pain, abnormal SOB with exertion, palpitations, syncope or near syncopal episodes, PND, orthopnea, or pedal edema. METS greater than 4. Per 2014 ACC/AHA guidelines, no further cardiac testing is indicated. Apfel score of 3; 61% 24-hour risk of PONV. Pt denies previous complications with anesthesia. Lv report hypertension during previous gynecological procedure. According to the stop bang assessment, the patient would be considered no risk for RODNEY. Vital signs are within acceptable limits for surgery. CBC pending. Chronic conditions appear stablefor surgery at this time. [id number] Miscellaneous Notes* Assessment & Plan Note - Cheri Valente CNP - 01/06/2025 4:51 PM ESTAssociated Problem(s): Pre-op examination FERNANDEZ score indicates a less than 1% risk of IN or cardiac arrest, intraoperatively or up to 30 days post-op. Pt denies chest pain, abnormal SOB with exertion, palpitations, syncope or near syncopal episodes, PND, orthopnea, or pedal edema. METS greater than 4. Per 2014 ACC/AHA guidelines, no further cardiac testing is indicated. Apfel score of 3; 61% 24-hour risk of PONV. Pt denies previous complications with anesthesia. Lv report hypertension during previous gynecological procedure. According to the stop bang assessment, the patient would be considered no risk for RODNEY. Vital signs are within acceptable limits for surgery. CBC pending. Chronic conditions appear stablefor surgery at this time. * Assessment & Plan Note - Cheri Valente CNP - 01/06/2025 4:50 PM EST Associated Problem(s): TIA (transient ischemic attack) 2006. Unknown etiology. No issues since. 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 Today Malissa denies any palpitations, lightheadedness, chest pain, or dyspnea with exertion. Continue Verapamil perioperatively. Per EP conclusion, the electrophysiology study was entirely normal, but most notably, I could not provoke any accessory pathway function and certainly no inducible tachycardia. I again reviewed the EKG that was recorded during her emergency room visit at [facility] and even in hindsight, with the results of this electrophysiologic study, I do believe that there is evidence of accessory pathway function. However, given today's results, in the absence of any documented tachyarrhythmia, I believe that she is in an excellent prognostic group. She does not have any increased risk of malignant atrial or ventricular arrhythmias in association with this suggested pattern of WPW. 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 BP is well controlled at this office visit, 127/85. Continue medical therapyas prescribed. Malissa does report being told after a previous surgery that she had high blood pressure. This was done at [facility]. I will call and get anesthesia records to be scanned into the chart. * Assessment & Plan Note - Cheri Valente CNP - 01/06/2025 4:35 PM EST Associated Problem(s): Plantar fasciitis Pt scheduled to undergo a left foot plantar fasciotomy with Dr. Cobian on 01/19/2025. documented in this [id number] Evaluation + Plan note* Assessment & Plan Note - Cheri Valente CNP - 01/06/2025 4:50 PM EST Associated Problem(s): TIA (transient ischemic attack) 2006. Unknown etiology. No issues since. 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 Today Malissa denies any palpitations, lightheadedness, chest pain, or dyspnea with exertion. Continue Verapamil perioperatively. Per EP conclusion, the electrophysiology study was entirely normal, but most notably, I could not provoke any accessory pathway function and certainly no inducible tachycardia. I again reviewed the EKG that was recorded during her emergency room visit at [facility] and even in hindsight, with the results of this electrophysiologic study, I do believe that there is evidence of accessory pathway function. However, given today's results, in the absence of any documented tachyarrhythmia, I believe that she is in an excellent prognostic group. She does not have any increased risk of malignant atrial or ventricular arrhythmias in association with this suggested pattern of WPW. 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 BP is well controlled at this office visit, 127/85. Continue medical therapyas prescribed. Malissa does report being told after a previous surgery that she had high blood pressure. This was done at [facility]. I will call and get anesthesia records to be scanned into the chart. [id number] Evaluation + Plan note* Assessment & Plan Note - Cheri Valente CNP - 01/06/2025 4:35 PM ESTAssociated Problem(s): Plantar fasciitis Pt scheduled to undergo a left foot plantar fasciotomy with Dr. Cobian on 01/19/2025. [id number] Instructions* Patient Instructions* Cheri Valente CNP - 01/06/2025 4:25 PM EST Preoperative Medication Instructions In preparation for surgery please continue all of your current medications with the following changes: Active Home Medications Medication Sig Take Last Dose On Take Morning of Surgery Comment(s) aMILoride (MIDAMOR) 5 MG tablet Take 2 tablets twice a day by oral route for 90 days. cloNIDine HCL (CATAPRES) 0.2 MG tablet BID . Yes hydrALAZINE (APRESOLINE) 50 MG tablet Take 1 tablet 3 times a day by oral route for 90 days. Yes Lexapro 10 mg tablet PM . verapamil sr (CALAN-SR) 240 MG er tablet PM . STOP ( medications that contain aspirin, such as Irlanda Stickney, Pepto-Bismol, Anacin), antiinflammatory medications such as Advil, Motrin, Ibuprofen, Naproxen, Aleve, Irlanda Stickney, Pepto-Bismol, Anacin, Diclofenac, Voltaren, Daypro, Etodolac, Ketoprofen, Piroxicam, Relafen, Nabumetone, etc. Also disc ontinue Vitamin C, Vitamin E, [place]ton-3 Fatty Acid, Fish Oil or Lovaza, and all herbal medications ASDIRECTED BY SURGEON. Tylenol (acetaminophen) is acceptable(unless you have an allergy to this medication ), but be careful to follow the label directions and do not use with other pain medications. On the morning of surgery, with as little water as possible, ONLY take the medications listed abovein the column Take the morning of surgery. If you are using Eye Drops or Inhalers, please bring them to the hospital. Patient Instructions for [facility]: Prior to surgery: Surgeon's office will contact you with the scheduled time of your surgery. You may use the [employer] parking available at the Main Entrance One family member may accompany you back into the Pre-Op Area. Do not eat anything after midnight or as directed, including gum, mints, and cough drops. Drink 8 ounces of CLEAR electrolyte hydration. (Example- 8 oz Gatorade) 2 hours prior to procedure. No smoking after midnight. No chewing tobacco after midnight. No alcohol 24 hours prior to your surgery. Please take any medications you have been instructed to take the morning of your surgery with smallsips of water. Please be sure to wear comfortable, appropriate clothing. Please remove all jewelry and piercing's, including wedding rings. Leave all valuable items at home. Shower using anti-bacterial soap or as advised by your Surgeon's office Do not apply any makeup or lotions. Remove all nail persian for surgeries involving extremities. Please remember to bring both your insurance card and a photo ID with you on the day of surgery. After your surgery: If you are having outpatient surgery - you must have a licensed full service vending driver to take you home. The expectation is that this full service vending driver will remain at the hospital for the duration of your procedure. You are advised to have a family member with you for at least 24 hours after being under Anesthesia. If you have sleep apnea and have a CPAP/BIPAP mask, please bring it with you the day of surgery. documented in this [id number] NoteLeft heel pain Patient is a pleasant 39-year-old female who follows up today for continued left heel pain. She states that her heel has been exceptionally painful this week course the most. It has been so bad that she ultimately returned back to her cam boot to try to take off some pressure. She states that she is ready for surgery as this is continuously painful. Physical Vascular: DP PT pulses are easily palpable 2-4. CFT is normal no edema. Derm: No erythema no open wounds no ulcers no rashes no deep nodules. Neuro: Light touch is normal Babinski's is normal. Musculoskeletal: Muscle strength is 5 out of 5. Still has substantial pain to the fascial origin centrally and medially. Less so laterally. Ankle subtalar is full and pain-free. MRI reviewed consistent with plantar fascia centrally to the central core submedially as well with enthesophyte. Assessment plan: Patient is a pleasant 39-year-old female with chronic left foot plantar fasciitis and heel spur syndrome with pain. At this time she is tried and failed substantial conservative therapy but is electing to undergo surgical intervention. -Surgical plan is an open left foot plantar fasciotomy. -This to be done at [facility] in the coming weeks to months. Preop does require CBC with differential and PAT clearance. Follow-up to sign consent in the coming weeks. Case request placed today preop antibiotics and DVT prophylaxis. AUTHENTICATED BY CM COBIAN JR., ON 12/24/2024 16:58:13[facility]02-19-2025 History of Present illness Narrative* Cm Cobian Jr., DPM - 12/24/2024 4:36 PM EST Left heel pain Patient is a pleasant 39-year-old female who follows up today for continued left heel pain. She states that her heel has been exceptionally painful this week course the most. It has been so bad that she ultimately returned back to her cam boot to try to take off some pressure. She states that she is ready for surgery as this is continuously painful. Physical Vascular: DP PT pulses are easily palpable 2-4. CFT is normal no edema. Derm: No erythema no open wounds no ulcers no rashes no deep nodules. Neuro: Light touch is normal Babinski's is normal. Musculoskeletal: Muscle strength is 5 out of 5. Still has substantial pain to the fascial origin centrally and medially. Less so laterally. Ankle subtalar is full and pain-free. MRI reviewed consistent with plantar fascia centrally to the central core submedially as well with enthesophyte. Assessment plan: Patient is a pleasant 39-year-old female with chronic left foot plantar fasciitis and heel spur syndrome with pain. At this time she is tried and failed substantial conservative therapy but is electing to undergo surgical intervention. -Surgical plan is an open left foot plantar fasciotomy. -This to be done at [facility] in the coming weeks to months. Preop does require CBC with differential and PAT clearance. Follow-up to sign consent in the coming weeks. Case request placed today preop antibiotics and DVT prophylaxis. documented in this [id number] NoteLeft foot pain Patient is a pleasant 39-year-old female following up today for continued left heel pain. She states that she was try to get an MRI back in the fall when it was originally ordered however approximately that same time she fell in her living room and had a pretty bad fall. She had an MRI ordered of her back and trauma site and was diagnosed serendipitously with a cyst to her ovary which ultimately resulted in a ovarian surgical operation which she obviously missed her MRI for. Now that this is all behind her she states that her foot is still sore and painful and now she has time to get to focus on this. Physical Vascular: DP PT pulses are easily palpable 2-4. CFT is fair no edema. Derm: No erythema no open wounds no ulcers no rashes no nodules. Neuro: Normal. Musculoskeletal: Muscle strength is 5 out of 5 with fair tone. Still tremendous pain to the left foot plantar fascial origin negative calcaneal squeeze test. Ankle subtalar is full and pain-free. Assessment and plan: Patient is a pleasant 39-year-old female with continued left foot plantar fasciitis and heel spur syndrome with pain. She has previously undergone extensive conservative therapy including steroids therapy and NSAIDs all to no avail with daily pain. Due to the paucity of data off the plain film radiograph, did order an MRI without contrast left foot to workup for a left foot endoscopic versus open plantar fasciotomy. This is for surgical staging mapping and planning and medically necessary. Follow-up on imaging in the coming weeks. AUTHENTICATED BY CM COBIAN JR., ON 12/05/2024 16:53:29[facility]01-31-2025 History of Present illness Narrative* Cm Cobian Jr., DPM - 12/05/2024 4:50 PM EST Left foot pain Patient is a pleasant 39-year-old female following up today for continued left heel pain. She states that she was try to get an MRI back in the fall when it was originally ordered however approximately that same time she fell in her living room and had a pretty bad fall. She had an MRI ordered of her back and trauma site and was diagnosed serendipitously with a cyst to her ovary which ultimately resulted in a ovarian surgical operation which she obviously missed her MRI for. Now that this is all behind her she states that her foot is still sore and painful and now she has time to get to focuson this. Physical Vascular: DP PT pulses are easily palpable 2-4. CFT is fair no edema. Derm: No erythema no open wounds no ulcers no rashes no nodules. Neuro: Normal. Musculoskeletal: Muscle strength is 5 out of 5 with fair tone. Still tremendous pain to the left foot plantar fascial origin negative calcaneal squeeze test. Ankle subtalar is full and pain-free. Assessment and plan: Patient is a pleasant 39-year-old female with continued left foot plantar fasciitis and heel spur syndrome with pain. She has previously undergone extensive conservative therapy including steroids therapy and NSAIDs all to no avail with daily pain. Due to the paucity of data off the plain film radiograph, did order an MRI without contrast left foot to workup for a left foot endoscopic versus open plantar fasciotomy. This is for surgical stagingmapping and planning and medically necessary. Follow-up on imaging in the coming weeks. documented in this [id number] Evaluation note* Diagnosis Onset Date Resolution Status Admit Date Postop check noneactive October 3:18pm [facility] Work Phone: 1(996) 725-369111-19-2024 [facility] Medical Records Department [address] [place] [id number] History Physical Exam 09/23/24 1226 MR#: [id number] Acct: [id number] Name: MALISSA ELLIOTT BRIANNA Rep #: [id number] : 1985 39 From: Samara Canas MD PCP: Dr. Marco A Marie MD Status:[facility] Location: [place] [address] History and Physical [facility] [address], [address] [place] [address] OFFICE VISIT Date of Service: 09/10/24 MR#: [id number] Acct: [id number] Name: MALISSA ELLIOTT BRIANNA Rep #: [id number] : 1985 Provider: Dr. Samara Canas MD Age/Sex: 39/F Location: [facility] Status: Signed Intake Vital Signs 08/04/2409:49 09/10/2414:04 09/10/2414:10 Height 5 ft 7 in 5 ft 7 in Weight: 185 lb BMI 29.0 BP 149/98 H 137/97 H Intake Visit Reasons: surgical consult per [employer] In[employer] Required: No Is patient in pain?: Yes (lower left pelvic pain) Feel stressed/tense/nervous/anxious/difficulty sleeping: not at all Allergies adhesive tape Allergy (Mild, Verified 09/10/24 14:06) RashIodinated Contrast Media Allergy (Unknown, Verified 09/10/24 14:06) Itching Medications ???Medication ???Instructions ???Recorded ???Confirmed ???Type amiloride 5 mg tablet 20 mg PO DAILY 02/16/22 09/10/24 History hydralazine 25 mg tablet 25 mg PO TID 02/16/22 09/10/24 History verapamil 180 mg 24 hr 180 mg PO DAILY #60 caps 04/10/22 09/10/24 Rx capsule,extended release clonidine HCl 0.1 mg tablet 0.1 mg PO BID hypertensive 05/22/22 09/10/24 History emergency escitalopram oxalate 10 mg tablet 10 mg PO QDAY 08/04/24 09/10/24 History (Lexapro) Is last menstrual period known: No Post menopausal: No Patient : No : No PFSH Medical History (Updated 09/11/24 @ 08:[address] Samara Canas MD) Juan J's syndrome PSVT (paroxysmal supraventricular tachycardia) WPW (Nbxyv-Epogqhedt-Ybijs syndrome) Hypertensive heart disease without HF (heart failure) Mixed hyperlipidemia Essential hypertension Migraine TIA (transient ischemic attack) Tachycardia Surgical History History of resection of rib S/P tubal ligation History of hysterectomy Family History Other Cancer Diabetes Heart disease Hypertension Social History household members: spouse current occupational status: employed current occupation: [employer] Smoking Status: Former smoker alcohol intake: current details: occasional substance use type: does not use caffeine: Yes (occasional) additional social history: - Thomas HPI surgical consult per Details: MALISSA ELLIOTT is a 39 year old who presents for Persistent pelvic pain and ovarian cyst. Patient has had an ovarian cyst that has been present now for over a month. Patient has had chronic left hip pain for a year and has been increasing and has been worked up for musculoskeletal origin and workup has been negative. She has tried interventions and nothing has resolved it. She also has deep dyspareunia. Upon pelvic ultrasound she has a cystic ovarian lesion that has doubled in size in the last month. History 3 Elective abortions Hx Para 3 Spontaneous abortions Hx # Term Pregnancies Ectopic pregnancies Hx # Pregnancies Multiple births # of living children 3 ROS Const Constitutional: Denies fatigue, fever(s), headache(s), increased appetite, poor appetite, weight gain or weight loss Cardio Card: Denies chest pain Resp Resp: Denies cough or dyspnea GI GI: Reports as per HPI; Denies constipation, nausea or vomiting : Reports as per HPI, vaginal discharge, vaginal dryness, vaginal odor and vaginal pruritus; Denies difficulty voiding, dysuria, urinary frequency, urinary incontinence, urinary hesitancy or urinary urgency Skin Skin/Breast: Denies change in hair, breast mass, breast pain or breast skin changes Exam Const General: cooperative, healthy appearing, comfortable, no acute distress and well developed Nutritional Appearance: average body habitus Orientation: alert HENVT Head: normal to inspection and normocephalic Neck Neck: normal visual inspection and trachea midline Thyroid: thyroid normal Resp Effort Inspection: normal respiratory effort GI Inspection: normal to inspection and non-distended Palpation: soft and no hepatosplenomegaly General: bladder normal to palpation External Female Exam: normal external appearance and no (more content not included)...[facility]09-[facility]2024 Hospital Discharge instructions Patient Education 07/11/2024 11:32:13 Bruises (Contusions) Bruises (Contusions) A contusion is a bruise. A bruise happens when a blow to your body doesn't break the skin but does break blood vessels beneath the skin. Blood leaking from the broken vessels causes redness and swelling. As it heals, your bruise is likely to turn colors like purple, green, and yellow. This is normal. The bruise should fade in 2 or 3 weeks. Factors that make you more likely to bruise Almost everyone bruises now and then. Certain people do bruise more easily than others. You're moreprone to bruising as you get older. That's because blood vessels become more fragile with age. You're also more likely to bruise if you have a clotting disorder such as hemophilia or take medicines that reduce clotting, including aspirin and coumadin. You are also more likely to bruise if you have liver disease and or drink alcohol daily. When to go to the emergency room (ER) Bruises almost always heal on their own without special treatment. But for some people, a bad bruise can be serious. Seek medical care if you: Have a clotting disorder such as hemophilia Have cirrhosis or other serious liver disease Take blood-thinning medicines such as warfarin What to expect in the ER A doctor will examine your bruise and ask about any health conditions you have. In some cases, you may have a test to check how well your blood clots. Other treatment will depend on your needs. Follow-up care Sometimes a bruise gets worse instead of better. It may become larger and more swollen. This can occur when your body linares off a small pool of blood under the skin (hematoma). In very rare cases, your doctor may need to drain extra blood from the area. Tip: Apply an ice pack or bag of frozen peas to a bruise. Keep a thin cloth between the ice or frozen peas and your skin. The cold can help reduce redness and swelling. 2445-7343 [employer]. [address] [place] [address]. All rights reserved. This information is not intended as a substitute for professional medical care. Always follow yourhealthcare professional's instructions. Follow Up Care 07/11/2024 10:26:44 With:MARCO A [facility]IE MD [facility] [address] [address] [phone] When:2-4 days [facility] 09-06-2024 Note Discharge Instructions Thank you for allowing [facility] to assist you with your healthcare needs. The following is importantdischarge information regarding your hospital visit. Diagnosis from Today's Visit Contusion of back Fall Radiology result abnormal What to Do Next Instructions from Your Care Team on your imaging today: irregular dermoid in the posterior pelvis, about 5.6 cm in maximum diameter. The radiologist recommends ultrasound. Please discuss with your doctor. No qualifying data available. Post Acute Orders No qualifying data available. You Need to Schedule the Following Appointments Follow Up with MARCO A MARIE MD When:Within 2-4 days Where:[address] [place] [address]- [phone] Allergies Contrast dye Medications Please ask your primary doctor or pharmacist before taking any other medication not listed, including over the counter drugs, herbal medications, vitamins and or supplements as they may interact withyour home medications. What How Much When Why Instructions Last Dose New acetaminophen-oxyCODONE (Percocet 5 mg-325 mg oral tablet) 1 tab(s) by mouth Every 6 hours as needed for as needed for pain Contusion of back Duration: 3 Days Printed Prescription Unchanged cloNIDine [...] medication providers or retail pharmacies. Medication Leaflets acetaminophen and oxycodone (a SEET a MIN oh fen and OX i KOE done) Endocet 10/325, Endocet 2.5/325, Endocet 5/325, Endocet 7.5/325, Nalocet, Percocet, Prolate What is the most important information I should know about acetaminophen and oxycodone? MISUSE OF OPIOID MEDICINE CAN CAUSE ADDICTION, OVERDOSE, OR . Keep the medication in a place where others cannot get to it. Taking opioid medicine during may cause life-threatening withdrawal symptoms in the . Fatal side effects can occur if you use opioid medicine with alcohol, or with other drugs that cause drowsiness or slow your breathing. Stop taking this medicine and call your doctor right away if you have skin redness or a rash that spreads and causes blistering and peeling. What is acetaminophen and oxycodone? Acetaminophen and oxycodone is a combination medicine used to relieve moderate to severe pain. Acetaminophen and oxycodone contains an opioide medicine and may be habit-forming. Acetaminophen and oxycodone may also be used for purposes not listed in this medication guide. What should I discuss with my healthcare provider before taking acetaminophen and oxycodone? You should not use this medicine if you are allergic to acetaminophen or oxycodone, or if you have: severe asthma or breathing problems; or a blockage in your stomach or intestines. Tell your doctor if you have ever had: breathing problems, sleep apnea; liver disease; a drug or alcohol addiction; kidney disease; a head injury or seizures; urination problems; or problems with your thyroid, pancreas, or gallbladder. If you use opioid medicine while you are , your baby could become dependent on the drug. This can cause life-threatening withdrawal symptoms in the baby after it is born. Babies born dependent on opioids may need medical treatment for several weeks. Ask a doctor before using opioid medicine if you are . Tell your doctor if you notice severe drowsiness or slow breathing in the nursing baby. How should I take acetaminophen and oxycodone? Follow all directions on your prescription label. Never take this medicine in larger amounts, or for longer than prescribed. An overdose can damage your liver or cause . Tell your doctor if you feel an increased urge to use more of this medicine. Never share opioid medicine with another person, especially someone with a history of drug abuse oraddiction. MISUSE CAN CAUSE ADDICTION, OVERDOSE, OR . Keep the medicine in a place where others cannot get to it. Selling or giving away opioid medicine is against the law. Measure liquid medicine carefully. Use the dosing syringe provided, or use a medicine dose-measuring device (not a kitchen spoon). If you need surgery or medical tests, tell the doctor ahead of time that you are using this medicine. You should not stop using this medicine suddenly. Follow your doctor's instructions about tapering your dose. Store at room temperature away from moisture and heat. Keep track of your medicine. You should be aware if anyone is using it improperly or without a prescription. Do not keep leftover opioid medication. Just one dose can cause in someone using this medicine accidentally or improperly. Ask your pharmacist where to locate a drug take-back disposal program.If there is no take-back program, flush the unused medicine down the toilet. What happens if I miss a dose? Since this medicine is used for pain, you are not likely to miss a dose. Skip any missed dose if itis almost time for your next dose. Do not use two doses at one time. What happens if I overdose? Seek emergency medical attention or call the Poison Help line at . An overdose of this medicine can be fatal, especially in a child or other person using the medicine without a prescription. Overdose symptoms may include nausea, vomiting, sweating, severe drowsiness, pinpoint pupils, slow breathing, or no breathing. Your doctor may recommend you get naloxone (a medicine to reverse an opioid overdose) and keep it with you at all times. A person caring for you can give the naloxone if you stop breathing or don't wake up. Your caregiver must still get emergency medical help and may need to perform CPR (cardiopulmonary resuscitation) on you while waiting for help to arrive. Anyone can buy naloxone from a pharmacy or local health department. Make sure any person caring foryou knows where you keep naloxone and how to use it. What should I avoid while taking acetaminophen and oxycodone? Avoid driving or operating machinery until you know how this medicine will affect you. Dizziness ordrowsiness can cause falls, accidents, or severe injuries. Do not drink alcohol. Dangerous side effects or could occur. Ask a doctor or pharmacist before using any other medicine that may contain acetaminophen (sometimes abbreviated as APAP). Taking certain medications together can lead to a fatal overdose. What are the possible side effects of acetaminophen and oxycodone? Get emergency medical help if you have signs of an allergic reaction: hives; difficulty breathing;swelling of your face, lips, tongue, or throat. Opioid medicine can slow or stop your breathing, and may occur. A person caring for you should give naloxone and/or seek emergency medical attention if you have slow breathing with long pauses,blue colored lips, or if you are hard to wake up. In rare cases, acetaminophen may cause a severe skin reaction that can be fatal. This could occur even if you have taken acetaminophen in the past and had no reaction. Stop taking this medicine and call your doctor right away if you have skin redness or a rash that spreads and causes blistering andpeeling. Call your doctor at once if you have: noisy breathing, sighing, shallow breathing, breathing that stops; a light-headed feeling, like you might pass out; weakness, tiredness, fever, unusual bruising or bleeding; confusion, unusual thoughts or behavior; problems with urination; liver problems--nausea, upper stomach pain, tiredness, loss of appetite, dark urine, gianna-colored stools, jaundice (yellowing of the skin or eyes); low cortisol levels-- nausea, vomiting, loss of appetite, dizziness, worsening tiredness or weakness; or high levels of serotonin in the body--agitation, hallucinations, fever, sweating, shivering, fast heart rate, muscle stiffness, twitching, loss of coordination, nausea, vomiting, diarrhea. Serious breathing problems may be more likely in older adults and in those who are debilitated or have wasting syndrome or chronic breathing disorders. Common side effects include: dizziness, drowsiness, feeling tired; feelings of extreme happiness or sadness; nausea, vomiting, stomach pain; constipation; or headache. This is not a complete list of side effects and others may occur. Call your doctor for medical advice about side effects. You may report side effects to FDA at 1-496-PCP-2951. What other drugs will affect acetaminophen and oxycodone? You may have breathing problems or withdrawal symptoms if you start or stop taking certain other medicines. Tell your doctor if you also use an antibiotic, antifungal medication, heart or blood pressure medication, seizure medication, or medicine to treat HIV or hepatitis C. Opioid medication can interact with many other drugs and cause dangerous side effects or . Be sure your doctor knows if you also use: cold or allergy medicines, bronchodilator asthma/COPD medication, or a diuretic ('water pill'); medicines for motion sickness, irritable bowel syndrome, or overactive bladder; other opioids--opioid pain medicine or prescription cough medicine; a sedative like Valium--diazepam, alprazolam, lorazepam, Xanax, Klonopin, Versed, and others; drugs that make you sleepy or slow your breathing--a sleeping pill, muscle relaxer, medicine to treat mood disorders or mental illness; drugs that affect serotonin levels in your body--a stimulant, or medicine for depression, Parkinson's disease, migraine headaches, serious infections, or nausea and vomiting. This list is not complete. Other drugs may affect acetaminophen and oxycodone, including prescription and hkco-msk-yjcyxck medicines, vitamins, and herbal products. Not all possible interactions are listed here. Where can I get more information? Your doctor or pharmacist can provide more information about acetaminophen and oxycodone. Remember, keep this and all other medicines out of the reach of children, never share your medicines with others, and use this medication only for the indication prescribed. Every effort has been made to ensure that the information provided by [employer]. ('[employer]') is accurate, up-to-date, and complete, but no guarantee is made to that effect. Drug information contained herein may be time sensitive. [employer] information has been compiled for use by healthcare practitioners and consumers in the [place] and therefore [employer] does not warrant that uses outside of the [place] are appropriate, unless specifically indicated otherwise. [employer] drug information does not endorse drugs, diagnose patients or recommend therapy. [employer] drug information isan informational resource designed to assist licensed healthcare practitioners in caring for their p atients and/or to serve consumers viewing this service as a supplement to, and not a substitute for, the expertise, skill, knowledge and judgment of healthcare practitioners. The absence of a warningfor a given drug or drug combination in no way should be construed to indicate that the drug or drug combination is safe, effective or appropriate for any given patient. [employer] does not assume any responsibility for any aspect of healthcare administered with the aid of information [employer] provides. The information contained herein is not intended to cover all possible uses, directions, precautions, warnings, drug interactions, allergic reactions, or adverse effects. If you have questions about the drugs you are taking, check with your doctor, nurse or pharmacist. Copyright 6809-8252 [employer]. Version: 22.01. Revision Date: 06/07/2023. Education Materials Bruises (Contusions) A contusion is a bruise. A bruise happens when a blow to your body doesn't break the skin but does break blood vessels beneath the skin. Blood leaking from the broken vessels causes redness and swelling. As it heals, your bruise is likely to turn colors like purple, green, and yellow. This is normal. The bruise should fade in 2 or 3 weeks. Factors that make you more likely to bruise Almost everyone bruises now and then. Certain people do bruise more easily than others. You're moreprone to bruising as you get older. That's because blood vessels become more fragile with age. You're also more likely to bruise if you have a clotting disorder such as hemophilia or take medicines that reduce clotting, including aspirin and coumadin. You are also more likely to bruise if you have liver disease and or drink alcohol daily. When to go to the emergency room (ER) Bruises almost always heal on their own without special treatment. But for some people, a bad bruise can be serious. Seek medical care if you: Have a clotting disorder such as hemophilia Have cirrhosis or other serious liver disease Take blood-thinning medicines such as warfarin What to expect in the ER A doctor will examine your bruise and ask about any health conditions you have. In some cases, you may have a test to check how well your blood clots. Other treatment will depend on your needs. Follow-up care Sometimes a bruise gets worse instead of better. It may become larger and more swollen. This can occur when your body linares off a small pool of blood under the skin (hematoma). In very rare cases, your doctor may need to drain extra blood from the area. Tip: Apply an ice pack or bag of frozen peas to a bruise. Keep a thin cloth between the ice or frozen peas and your skin. The cold can help reduce redness and swelling. 1522-8533 [employer]. [address] [place] [address], [place] [address]. All rights reserved. This information is not intended as a substitute for professional medical care. Always follow yourhealthcare professional's instructions. Additional Information VACCINATE! IT SAVES LIVES! Members of the community who have not yet received the COVID-19 vaccine and would like to receive it can visit one of [facility] vaccine clinics. There are many vaccine clinic locations within the [facility]. For locations and available times, please visit www.[email or web address].[place].gov/. It is important to note that some COVID mobile vaccine clinics are held outdoors and may be canceled in rainy or stormy conditions. To learn more about pediatric vaccinations (ages 5-11), we invite you to visit the [facility] webpage. https://www.[facility].org/pages/8466-Owktw-Huhizhfhcwh-Iktfigfjva-Izutf-Wlk stions.htmlTo learn more about the COVID-19 vaccine, we invite you to visit the CDC website for a list of frequently asked questions. https://www.cdc.gov/coronavirus/2019-ncov/vaccines/faq.html [facility] Patient Portal Access Instructions: Stay connected with your healthcare team and access your personal medical information anytime with the [facility] Patient Portal. If you would like a full copy of your medical records please contact the [facility] Medical Records Department Sunday through Sunday between 8a.m. and 4:30p.m. Please follow the directions below to access the portal: 1.Access the email account you provided upon registration to the hospital.2.Look for an invitation email from [facility].3.Open the email and access the invitation link: Accept Invitation to [facility]4.Fill in the required nova to create your account. Sign into [email or web address].[email or web address] with your username and password that you [...] you will allow to register on the [facility] Patient Portal for access to your information. You can also access the [facility] Patient Portal on the [employer] michael. Simply click on Health Records under [employer] and then click on the [facility] logo. HOW TO SAFELY DISPOSE OF PRESCRIPTION MEDICATIONS Please use one of the following methods to safely dispose of your unused medications. 1.Use a drug disposal kit: the drug disposal pouch allows you to safely discard your old and unuseddrugs. Ask your nurse to give you one when you are discharged.2.Visit a local take-back location: Many local pharmacies and police departments have programs that collect old and unwanted prescriptiondrugs. Call your local pharmacy or go to http://bit.MyRegistry.com/4P7Hn1w to find one close to you.3.Make use of household items: Use cat litter or old coffee grounds to dispose medications if other options arenot available. Mix your drugs with these household products, seal them in an airtight container andthrow it into the garbage. Call [facility]: [phone] to be sure your drugs can be [...] drowsiness, such as benzodiazepines, also known as benzos,including diazepam and alprazolam, muscle relaxants or sleep aids. Never sell or share prescriptionopioids. This is illegal. Store opioids in a secure place and out of reach of others (including children, family, friends and visitors). The last page(s) of this document has been signed and retained as a CHART COPY Signatures Patient Education Materials Bruises (Contusions) Medication Leaflets acetaminophen and oxycodone My discharge plan and instructions have been reviewed and explained to me and IEARL SARAH A understand my current condition and have read and understand these discharge instructions. I have received a written copy of the plan/instructions. If I have questions, I am aware that I should contact my doctor. 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 This exam was performed according to our departmental dose optimization program, and includes the following measures where applicable: automated exposure control, adjustment of the mAs and/or kVp according to patient size and/or exam, and an iterative reconstruction algorithm. FINDINGS: The abdominal organs are unremarkable in appearance. There is a hysterectomy. There are surgical clips in the pelvis. There is a somewhat irregular dermoid in the posterior pelvis, about 5.6 cm in maximum diameter. Bowel is poorly evaluated in the absence of oral contrast. A normal appendix is identified. There is no free fluid. Musculoskeletal structures are unremarkable. There is infiltration of the subcutaneous tissues over the left lower back. IMPRESSION: Surgical changes to the pelvis as well as an irregular dermoid; this would be better evaluated by ultrasound. Interpreted by: Hollis Wynn MD Preliminary Report By: Hollis Wynn MD Electronically signed By Hollis Wynn MD Dictated Date: 07/11/2024 11:10:38 AM Prelim Date: 07/11/2024 11:16:10 AM Sign Date: 07/11/2024 11:16:10 AM [facility] NoteLeft heel pain Patient is a pleasant 39-year-old female with recalcitrant left heel pain. This been going on for many many months. She states that her heel is still really not doing well. 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 To recap, she has now undergone immobilization with a cam boot and multiple steroid injections. Additionally done at home physical therapy with NSAIDs all to no avail with nearly daily pain. 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 Physical Vascular: DP PT pulses are easily palpable 2-4. CFT is fair no edema. Derm: No open wounds no ulcers no rashes no deep nodules. Neuro: Light touch is normal Babinski's is normal. Musculoskeletal: Muscle strength is 5 out of 5 with fair tone. Still with pain to the fascial origin, negative macrocrania squeeze test. No Achilles pain or midsubstance Achilles pain. Assessment and plan: Patient is a pleasant 39-year-old female with continued left foot Planter fasciitis and heel pain. -At this time, based on the chronicity of her and recalcitrance of her pain, this does warrant an MRI. This is necessary as her previous radiographs are nondiagnostic for soft tissue injuries as well as the chronicity of her pain and now 8 months plus. -Additionally this is for surgical mapping staging and planning. Follow-up in the next 2 to 3 weeks to review MRI and possibly bookcase including a left foot plantar fasciotomy. AUTHENTICATED BY CM COBIAN JR., ON 06/18/2024 16:39:37[facility]08-14-2024 History of Present illness Narrative* Cm Cobian Jr., DP - 06/18/2024 4:37 PM EDT Left heel pain Patient is a pleasant 39-year-old female with recalcitrant left heel pain. This been going on for many many months. She states that her heel is still really not doing well. 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 To recap, she has now undergone immobilization with a cam boot and multiple steroid injections. Additionally done at home physical therapy with NSAIDs all to no avail with nearly daily pain. For trade, she states that she generally has a sitting job or a desk job at the [employer]s officeTo wear tennis shoes or sneakers for work. Physical Vascular: DP PT pulses are easily palpable 2-4. CFT is fair no edema. Derm: No open wounds no ulcers no rashes no deep nodules. Neuro: Light touch is normal Babinski's is normal. Musculoskeletal: Muscle strength is 5 out of 5 with fair tone. Still with pain to the fascial origin, negative macrocrania squeeze test. No Achilles pain or midsubstance Achilles pain. Assessment and plan: Patient is a pleasant 39-year-old female with continued left foot Planter fasciitis and heel pain. -At this time, based on the chronicity of her and recalcitrance of her pain, this does warrant an MRI. This is necessary as her previous radiographs are nondiagnostic for soft tissue injuries as wellas the chronicity of her pain and now 8 months plus. -Additionally this is for surgical mapping staging and planning. Follow-up in the next 2 to 3 weeks to review MRI and possibly bookcase including a left foot plantar fasciotomy. documented in this [id number] History of Present illness Narrative* Cm Cobian Jr., DPM - 05/07/2024 4:41 PM EDT Patient with acute on chronic left heel pain. States that she was really feeling quite well previously but came out of the boot and back pedals quite a bit. Again has sharp post attic dyskinesia pain. Patient is AOx3 Physical DP PT pulses are easily palpable 2-4. CFT is fair no edema. Derm: No open wounds no ulcers no rashes no deep nodules. Neuro: Light touch is normal. Musculoskeletal: Muscle strength is 5/5 with fair tone. Still with pain to the fascial origin no lateral calcaneal squeeze pain. Assessment plan: Patient is a pleasant 38-year-old female with acute on subchronic left foot Planter fasciitis and heel spur syndrome pain. -At this time does qualify for repeat steroid injection. If she ultimately back pedals again will need an MRI to workup differential and consider if consistent with diagnosis a fascial release. Left heel injection Procedure: Patient is a pleasant 38-year-old female who comes in today for left heel injection. No guarantees are implied or made. Consent was signed verbally and documented. After timeout consent was performed, and alcohol prep, did inject in classical fashion from medial to lateral approach combination 1 cc 0.5% Marcaine plain and 1 cc of triamcinolone 40 mg/mL. Postop bandage applied. Primary risks are fascial rupture pain tingling burning scarring infection. Despite this risk, she does wish to proceed. Follow-up in 3 weeks to discontinue cam boot. documented in this [id number] History of Present illness Narrative* Cm Cobian Jr., DPM - 04/02/2024 4:12 PM EDT Left foot Planter fasciitis Patient is a pleasant 38-year-old female following up today for left heel pain. States that the shot and the boot together really did go quite well, her pain is nearly all the way better. She still has some soreness present but really optimistic that things are going well. Physical neurovascular: DP PT pulse are palpable. No edema. Musculoskeletal: Essentially no pain with compression and palpation to the fascial origin medially or laterally. Ankle subtalar is full and pain-free and no pain with isolation of the limits mechanism. Assessment and plan: Patient is a pleasant 38-year-old female with substantial improvement in her Planter fasciitis. At this time she can safely discontinue her cam boot. Did go over down titration mechanisms including taking this off over the next few days though technically tomorrow can fully stop and go back to street shoes. Follow-up as needed if this returns or recurs though all in all should be and doing well. documented in this [id number] History of Present illness Narrative* Cm Cobian Jr., DPM - 03/12/2024 4:42 PM EDT Left heel injection Procedure: Patient is a pleasant 38-year-old female who comes in today for left heel injection. No guarantees are implied or made. Consent was signed verbally and documented. After timeout consent was performed, and alcohol prep, did inject in classical fashion from medial to lateral approach combination 1 cc 0.5% Marcaine plain and 1 cc of triamcinolone 40 mg/mL. Postop bandage applied. Primary risks are fascial rupture pain tingling burning scarring infection. Despite this risk, she does wish to proceed. Follow-up in 3 weeks to discontinue cam boot. documented in this [id number] History of Present illness Narrative* Cm Cobian Jr., DPM - 02/27/2024 4:42 PM EDT HPI Chief Complaint Patient presents with Foot Pain Patient presents for left heel pain on and off couple of month. Bottom of heel. Patient reports more intense pain last couple of week. Patient has what seems to be mild swelling side of heel. Patienthas tried insoles, no relief Patient is a pleasant 38-year-old female who comes in today with some chronic left heel pain. She states this has been going on now for many months. She is tried a bunch of stuff at home including Advil and NSAIDs but to no avail. She reported to her primary care doctor who did not get her nails done with a close enough diagnosis and really had her come here instead. Separately, yesterday she was diagnosed with an upper respiratory infection and just started on amoxicillin. States is going fine and no issues from an infection standpoint. Past Medical History: Diagnosis Date Juan J's syndrome Past Surgical History: Procedure Laterality Date BONE RESECTION, RIB HYSTERECTOMY Social History Socioeconomic History Marital status: Tobacco Use Smoking status: Never Smokeless tobacco: Never Vaping Use Vaping Use: Never used Substance and Sexual Activity Alcohol use: Not Currently Drug use: Never Review of Systems Physical Exam Patient is AOx3. Linear and appropriate humor and thought process. Vascular: DP PT pulses are easily palpable 2-4. CFT is fair no edema. Derm: No erythema no open wounds no ulcers no rashes no deep nodules. Neuro: Light touch is normal Babinski's is normal. Musculoskeletal: Substantial pain to the fascial origin, negative calcaneal squeeze test. No Achilles pain or midsubstance Achilles pain. X-rays taken: Clear and obvious plantar calcaneal enthesophyte. Impression/Plan Problem List Items Addressed This Visit None Visit Diagnoses Plantar fasciitis - Primary Relevant Orders Cam Walker Patient is a pleasant 38-year-old female with acute left foot Planter fasciitis and heel spur syndrome with pain. -At this time did go over the etiology and differential. Today did prescribe dispense and fit her with a cam boot which is medically necessary to immobilize the fascial tearing insertional and let this heal. Patient was ambulatory prior to this incident and is expected to regain ambulatory status after complete healing of injury. -Additionally did go over the advantages of NSAIDs versus steroids and together decided on steroidsspecifically injectable. However given the fact that she was just started on antibiotics, out of anabundance of caution to not see this distally, we will have her hold off for 2 weeks and come back in 2 weeks once her infection is cleared and her antibiotics are completed for an injection in her left heel plantar fascial origin with triamcinolone and Marcaine. Follow-up in 2 weeks for left foot injection. Low medical complexity decision making based on differential and treatment plan. documented in this [id number] Hospital Discharge instructions Patient Education 10/03/2023 07:50:11 Vomiting (Adult) Vomiting (Adult) Vomiting is a common symptom that may be due to different causes. These include gastroenteritis (stomach flu), food poisoning and gastritis. There are other [...] and water are not available, use alcohol-based tax services specialist to keep from spreading the infection to others. Wash your hands for at least 20 seconds. Humming the happy birthday song twice while you wash is aneasy way to make sure you've washed for 20 seconds. Wash your hands after using the toilet, before and after preparing food, before eating food, after changing a diaper, cleaning a wound, caring for a sick person, and blowing your nose, coughing, or sneezing. You should also wash your hands after caring for someone who is sick, touching pet food, ortreats, and touching an animal, or animal waste. [...] Yellow color of the eyes or skin [id number] [employer]. [address] [place] [address]. All rights reserved. This information is not intended as a substitute for professional medical care. Always follow yourhealthcare professional's instructions. Follow Up Care 10/03/2023 06:42:49 With:MARCO A MARIE Address: [address] [address] [phone] Business (1) When:2-4 days Comments:Follow-up as needed if symptoms persist.Start with clear liquid diet and slowly advance as tolerated.Use Tylenol or Advil for fever and discomfort as needed.May use olgq-phz-uenlxgd antacids like Maalox, Mylanta or Tums as needed for upset stomach.Use Zofran as prescribed for nausea and vomiting as needed.Return to the ED if symptoms worsen. [facility] 11-29-2023 Note Discharge Instructions Thank you for allowing [facility] to assist you with your healthcare needs. The following is importantdischarge information regarding your hospital visit. Diagnosis from Today's Visit Vomiting What to Do Next Instructions from Your Care Team No qualifying data available. Post Acute Orders No qualifying data available. You Need to Schedule the Following Appointments Follow Up with MARCO A MARIE When Within 2-4 days Why: Follow-up as needed if symptoms persist. Start with clear liquid diet and slowly advance as tolerated. Use Tylenol or Advil for fever and discomfort as needed. May use iphq-pfy-pijkgiw antacids like Maalox, Mylanta or Tums as needed for upset stomach. Use Zofran as prescribed for nausea and vomiting as needed. Return to the ED if symptoms worsen. Where: [address] [address] [phone] Business (1) Allergies NKA Medications Please ask your primary doctor or pharmacist before taking any other medication not listed, including over the counter drugs, herbal medications, vitamins and or supplements as they may interact withyour home medications. What How Much When Why [...] provided, or with a special dose-measuring spoon ormedicine cup. If you do not have a [...] the body--agitation, hallucinations, fever, fast heart rate, overactivereflexes, nausea, vomiting, diarrhea, loss of coordination, fainting. Common side effects may include: diarrhea or constipation; headache; drowsiness; or tired feeling. This is not a complete list of side effects and others may occur. Call your doctor for medical advice about side effects. You may report side effects to FDA at 8-215-GRV-9880. What other drugs will affect ondansetron? Ondansetron [...] interact with ondansetron. This includes prescription and xwnm-xby-anamkbg medicines, vitamins, and herbal products. Give a [...] to ensure that the information provided by [employer]. ('[employer]') is accurate, up-to-date, and complete, but no guarantee is made to that effect. Drug information contained herein may be time sensitive. [employer] information has been compiled for use by healthcare practitioners and consumers in the [place] and therefore [employer] does not warrant that uses outside of the [place] are appropriate, unless specifically indicated otherwise. [employer] drug information does not endorse drugs, diagnose patients or recommend therapy. [employer] drug information isan informational resource designed to assist licensed healthcare practitioners in caring for their p atients and/or to serve consumers viewing this service as a supplement to, and not a substitute for, the expertise, skill, knowledge and judgment of healthcare practitioners. The absence of a warningfor a given drug or drug combination in no way should be construed to indicate that the drug or drug combination is safe, effective or appropriate for any given patient. [employer] does not assume any responsibility for any aspect of healthcare administered with the aid of information [employer] provides. The information contained herein is not intended to cover all possible uses, directions, precautions, warnings, drug interactions, allergic reactions, or adverse effects. If you have questions about the drugs you are taking, check with your doctor, nurse or pharmacist. Copyright 3630-8461 [employer]. Version: 16.. Revision Date: 06/07/2023. Education Materials Vomiting (Adult) Vomiting is a common symptom that may be due to different causes. These include gastroenteritis (stomach flu), food poisoning and gastritis. There are other [...] and water are not available, use alcohol-based tax services specialist to keep from spreading the infection to others. Wash your hands for at least 20 seconds. Humming the happy birthday song twice while you wash is aneasy way to make sure you've washed for 20 seconds. Wash your hands after using the toilet, before and after preparing food, before eating food, after changing a diaper, cleaning a wound, caring for a sick person, and blowing your nose, coughing, or sneezing. You should also wash your hands after caring for someone who is sick, touching pet food, ortreats, and touching an animal, or animal waste. [...] Yellow color of the eyes or skin 3835-3555 [employer]. [address] [place] [address]. All rights reserved. This information is not intended as a substitute for professional medical care. Always follow yourhealthcare professional's instructions. Additional Information VACCINATE! IT SAVES LIVES! Members of the community who have not yet received the COVID-19 vaccine and would like to receive it can visit one of [facility] vaccine clinics. There are many vaccine clinic locations within the [facility]. For locations and available times, please visit www.gettheshot.coronavirus.[place].gov/. It is important to note that some COVID mobile vaccine clinics are held outdoors and may be canceled in rainy or stormy conditions. To learn more about pediatric vaccinations (ages 5-11), we invite you to visit the [facility] webpage. https://www.[facility].org/pages/3281-Zimoc-Sukbogmifef-Frcbqpsbdf-Uoycl-Rql stions.htmlTo learn more about the COVID-19 vaccine, we invite you to visit the CDC website for a list of frequently asked questions. https://www.cdc.gov/coronavirus/2019-ncov/vaccines/faq.html [facility] Patient Portal Access Instructions: Stay connected with your healthcare team and access your personal medical information anytime with the [facility] Patient Portal. If you would like a full copy of your medical records please contact the [facility] Medical Records Department Sunday through Sunday between 8a.m. and 4:30p.m. Please follow the directions below to access the portal: 1.Access the email account you provided upon registration to the hospital.2.Look for an invitation email from [facility].3.Open the email and access the invitation link: Accept Invitation to [facility]4.Fill in the required nova to create your account. Sign into [email or web address] with your username and password that you [...] you will allow to register on the [facility] Patient Portal for access to your information. You can also access the [facility] Patient Portal on the [employer]. Simply click on Health Records under [employer] and then click on the [facility] logo. HOW TO SAFELY DISPOSE OF PRESCRIPTION MEDICATIONS Please use one of the following methods to safely dispose of your unused medications. 1.Use a drug disposal kit: the drug disposal pouch allows you to safely discard your old and unuseddrugs. Ask your nurse to give you one when you are discharged.2.Visit a local take-back location: Many local pharmacies and police departments have programs that collect old and unwanted prescriptiondrugs. Call your local pharmacy or go to http://Vanu.MyRegistry.com/2Q1Lp7q to find one close to you.3.Make use of household items: Use cat litter or old coffee grounds to dispose medications if other options arenot available. Mix your drugs with these household products, seal them in an airtight container andthrow it into the garbage. Call [facility]: [phone] to be sure your drugs can be [...] drowsiness, such as benzodiazepines, also known as benzos,including diazepam and alprazolam, muscle relaxants or sleep aids. Never sell or share prescriptionopioids. This is illegal. Store opioids in a secure place and out of reach of others (including children, family, friends and visitors). The last page(s) of this document has been signed and retained as a CHART COPY Signatures Patient Education Materials Vomiting (Adult) Medication Leaflets ondansetron (oral) My discharge plan and instructions have been reviewed and explained to me and I,MALISSA ELLIOTT understand my current condition and have read and understand these discharge instructions. I have received a written copy of the plan/instructions. If I have questions, I am aware that I should contact my doctor. Patient/Cloth Inspector Signature: Date/Time: Relationship to Patient: Witness Name/Signature: Date/Time: [facility]02-25-2023 NoteHNO ID: [id number] Author: Jim Plaza MD Service: ? Author Type: Physician Type: [...] PAST MEDICAL HISTORY Diagnosis Date Hypertension Overweight(278.02) Woysr-Hheeqzgcz-Dycvy (WPW) pattern MEDICATIONS: Current Outpatient Medications Medication [...] TABLET Plans to follow-up with dentist. Jim Plaza [facility]02-25-2023 History of Present illness Narrative* Jim Plaza MD - 12/30/2022 9:27 AM EST Patient presents with: Pain: Pt reported (RT) facial /gum swelling x2 days. HPI: Dental pain: Duration: 3 days Location: right upper outer gum by the molars Character: sore Radiation: No. Aggravating: chewing Associated: right cheeks is swelling now Pertinent negatives: Denies fever, chills, malaise, body aches, tooth pain PAST MEDICAL HISTORY Diagnosis Date Hypertension Overweight(278.02) Eczyc-Xerjnxjtu-Mnfeo (WPW) pattern MEDICATIONS: Current Outpatient Medications Medication [...] TABLET Plans to follow-up with dentist. Jim Plaza MD [facility] Plan note Assessment and Plan from 09/21/2022 5:21 PM: * Why You Were Here: Left-sided thoracic outlet syndrome. * Brief Discharge Plan: Normal postoperative course. Pain medication as needed. [facility] 11-17-2022 Hospital Discharge instructions Activity on Discharge from 09/21/2022 5:21 PM: * Activity Restrictions : No Tub Baths,No Pushing or Pulling * Driving : May return safely to operating a motor vechicle/driving * Driving allowed in: : 2 * May Drive in: : Week(s) * Stairs : As tolerated * Bathing : May Shower,No Tub Baths * May shower in: : 3 * May shower in: : Day(s) Chest Pain/Heart Attack Information from 09/21/2022 5:20 PM: * Has Patient had Chest Pain or an IN during this Visit? : No * It [...] Diet Plan/Instructions at Discharge from 09/21/2022 5:21 PM: * Diet Restrictions : Resume Home Diet ED Discharge Education Evaluation from 09/21/2022 10:48 AM: * Educ Topic #1 : Yes Education materials given during your stay from 09/21/2022 5:20 PM: * Learning Barrier : None Medication Plan/Information for Discharge from 09/21/2022 5:21 PM: * Discharge Medication : Printed Patient Transfer Information from 09/21/2022 5:21 PM: * Course of treatment during hospitalization: : Left 1st rib resection. * Diet Restrictions : Resume Home Diet * Special Instructions : Dry dressing to incision as needed. Physician Follow-up Plan/Appointments from 09/21/2022 5:23 PM: * Discharge Physician: : Dr Spence * Patient stated Primary Care Provider : yvon Special Plan/Instructions for Discharge from 09/21/2022 5:21 PM: * Special Instructions : Dry dressing to incision as needed. Stroke/TIA Discharge Information from 09/21/2022 5:20 PM: [...] have any of these signs, CALL right away: * What to do symptoms Txt : What to do if you or someone you know is having symptoms: CALL * Leave Hospital Txt : What to do when you leave the hospital Wound Care Instruction for Discharge from 09/21/2022 5:21 PM: * Change Bandage : Keep bandage clean and dry * Special Instructions : Dry dressing to incision as needed. [facility] 10-11-2022 History and physical note* Alanna Carvalho PA-C - 08/15/2022 9:45 AM EDT Images from the original note were not included. Malissa Elliott is a 37 y.o. 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 Musculoskeletal: Normal [...] Diseases and Surgery Associated attestation - Jovita Carlos MD - 08/15/2022 12:19 PM EDT Please see my separate note. [facility] Work Phone: [phone] 136-655110-11-2022 History and physical note* Alanna Carvalho PA-C - 08/15/2022 9:45 AM EDT Images from the original note were not included. Malissa Elliott is a 37 y.o. female she [...] in arms and face, blurred vision WPW (Ltgcr-Lknzgbaqe-Wopfe syndrome) 02/2014 Past Surgical History: Procedure Laterality [...] Sitting) Pulse 75 Ht 1.702 m (5' 7) Wt 82.6 kg (182 lb 3.2 oz) [...] distress, no decreased breath sounds, no wheezes, norhonchi, no rales Abdominal: Normal appearance. Musculoskeletal: Normal [...] Diseases and Surgery Associated attestation - Jovita Carlos MD - 08/15/2022 12:19 PM EDT Please see my separate note. documented in this encounterOS[facility] History of Present illness Narrative* Jovita Carlos MD - 08/15/2022 9:45 AM EDT I have personally examined this patient and agree with Alanna's note. Mrs. Elliott is a 37 yof referred for left TOS. She reports significant forearm and hand pain with accompanied weakness since May. No inciting event or trauma. No symptoms previously or in her youth.Denies any coolness or ulceration. Did notice bluish discoloration of the hand one day. Notes to bedropping objects frequently. There is numbness tingling which started in 4th/5th digit but this hasreally resolved now involving only 1-3rd digits. Pain is present all the time, even at night as sheis unable to get comfortable to sleep. On exam, she has no tenderness over her scalenes or pectoralis muscles. No superficial engorgement of her veins on either side. No edema. She does have a weakergrip on this left side compared to her right. She has a slightly abnormal adsons on the left. Abnormal EAST. Of note, she was recently diagnosed with hyperaldosteronism and is undergoing further treatment. This affects her by intermittent tachycardia, hypertension and hypokalemia. I have reviewed her outside duplex which is interesting. The velocities go to zero in two positionson the left but the waveforms persist. EMG [...] encouraged her to call sooner if things arenot going well. [facility] Instructions* Patient Instructions* Valeria Pinon RN - 08/15/2022 9:45 AM [...] o [employer] work-related activities documented in this encounterOSU [facility] History of Present illness Narrative* Kayleen Coffman RN - 03/02/2021 3:00 PM EDT Bubble study performed x 1 at request of Brianna Tao. Patient tolerated well, IV dc'd, patient discharged home. Samara Coffman RN [facility] Work Phone: Evaluation + Plan note No data available for this section [facility] Evaluation + Plan note [facility] Evaluation note* Diagnosis Onset Date Resolution Status Essential hypertension acute Mixed hyperlipidemia acute WPW (Zgzaa-Hayobtvqp-Ahigd syndrome) acute [facility] Work Phone: Evaluation note* Diagnosis 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 Other secondary hypertension, benign Hypokalemia Hypopotassemia Juan J's syndrome Glucocorticoid-remediable aldosteronism documented in this encounter [facility] Diagnosis Left hand pain- Primary Pain in limb [facility] Diagnosis Onset Date Resolution Status Essential hypertension acute WPW (Tdqby-Vekouybnt-Whndz syndrome) acute [facility] Work Phone: Evaluation note* Diagnosis Dental infection- Primary Acute apical periodontitis of pulpal origin documented in this encounter [facility] noteNo assessment information availableWSt. Mary[facility] Work Phone: Evaluation note* Diagnosis Plantar fasciitis- Primary Plantar fascial fibromatosis [facility] Diagnosis Plantar fasciitis- Primary Plantar fascial fibromatosis [facility] Diagnosis Plantar fasciitis- Primary Plantar fascial fibromatosis [facility] Diagnosis Plantar fasciitis- Primary Plantar fascial fibromatosis Left foot pain Pain in soft tissues of limb [facility] Diagnosis Plantar fasciitis- Primary Plantar fascial fibromatosis Left foot pain Pain in soft tissues of limb Plantar fasciitis Plantar fascial fibromatosis Left foot pain Pain in soft tissues of limb [facility] Diagnosis Plantar fasciitis Plantar fascial fibromatosis Left foot pain Pain in soft tissues of limb Pre-op examination- Primary Plantar fasciitis Plantar fascial fibromatosis Left foot pain Pain in soft tissues of limb Juan J's syndrome Glucocorticoid-remediable aldosteronism Cardiac arrhythmia, unspecified cardiac arrhythmia type TIA (transient ischemic attack) Unspecified transient cerebral ischemia Plantar fasciitis Plantar fascial fibromatosis Left foot pain Pain in soft tissues of limb [facility] Diagnosis Plantar fasciitis Plantar fascial fibromatosis Left foot pain Pain in soft tissues of limb Pre-op examination- Primary Plantar fasciitis Plantar fascial fibromatosis Left foot pain Pain in soft tissues of limb Juan J's syndrome Glucocorticoid-remediable aldosteronism Cardiac arrhythmia, unspecified cardiac arrhythmia type TIA (transient ischemic attack) Unspecified transient cerebral ischemia Plantar fasciitis- Primary Plantar fascial fibromatosis Plantar fasciitis Plantar fascial fibromatosis Left foot pain Pain in soft tissues of limb [facility] Diagnosis Pre-op examination- Primary Plantar fasciitis Plantar fascial fibromatosis Left foot pain Pain in soft tissues of limb Juan J's syndrome Glucocorticoid-remediable aldosteronism Cardiac arrhythmia, unspecified cardiac arrhythmia type TIA (transient ischemic attack) Unspecified transient cerebral ischemia Plantar fasciitis- Primary Plantar fascial fibromatosis Left foot pain Pain in soft tissues of limb [facility]* Diagnosis Pre-op examination- Primary Plantar fasciitis Plantar fascial fibromatosis Left foot pain Pain in soft tissues of limb Juan J's syndrome Glucocorticoid-remediable aldosteronism Cardiac arrhythmia, unspecified cardiac arrhythmia type TIA (transient ischemic attack) Unspecified transient cerebral ischemia Plantar fasciitis- Primary Plantar fascial fibromatosis Left foot pain Pain in soft tissues of limb [facility]* Diagnosis Pre-op examination- Primary Plantar fasciitis Plantar fascial fibromatosis Left foot pain Pain in soft tissues of limb Juan J's syndrome Glucocorticoid-remediable aldosteronism Cardiac arrhythmia, unspecified cardiac arrhythmia type TIA (transient ischemic attack) Unspecified transient cerebral ischemia Left foot pain- Primary Pain in soft tissues of limb [facility]* Diagnosis Pre-op examination- Primary Plantar fasciitis Plantar fascial fibromatosis Left foot pain Pain in soft tissues of limb Juan J's syndrome Glucocorticoid-remediable aldosteronism Cardiac arrhythmia, unspecified cardiac arrhythmia type TIA (transient ischemic attack) Unspecified transient cerebral ischemia Plantar fasciitis- Primary Plantar fascial fibromatosis Left foot pain Pain in soft tissues of limb [facility]* Diagnosis Pre-op examination- Primary Plantar fasciitis Plantar fascial fibromatosis Left foot pain Pain in soft tissues of limb Juan J's syndrome Glucocorticoid-remediable aldosteronism Cardiac arrhythmia, unspecified cardiac arrhythmia type TIA (transient ischemic attack) Unspecified transient cerebral ischemia Plantar fasciitis- Primary Plantar fascial fibromatosis [facility] Diagnosis Pre-op examination- Primary Plantar fasciitis Plantar fascial fibromatosis Left foot pain Pain in soft tissues of limb Juan J's syndrome Glucocorticoid-remediable aldosteronism Cardiac arrhythmia, unspecified cardiac arrhythmia type TIA (transient ischemic attack) Unspecified transient cerebral ischemia Left foot pain- Primary Pain in soft tissues of limb Plantar fasciitis Plantar fascial fibromatosis [facility]* Diagnosis Onset Date Resolution Status Admit Date Abdominal pain noneactive July 13, 2025 2:47pm [facility] Work Phone: [facility] Narrative* Course of treatment during hospitalization: : Left 1st rib resection. * Course of treatment during hospitalization: : Left 1st rib resection. [facility] Hospital Discharge instructions No data available for this section [facility] Hospital Discharge instructions Chest Pain/Heart Attack Information from 09/21/2022 5:20 PM: * Has Patient had Chest Pain or an IN during this Visit? : No * It [...] * Patient stated Primary Care Provider : yovn Stroke/TIA Discharge Information from 09/21/2022 5:20 PM: [...] have any of these signs, CALL right away: * What to do symptoms Txt : What to do if you or someone you know is having symptoms: CALL * Leave Hospital Txt : What to do when you leave the hospital [facility] Progress note No data available for this section [facility] Reason for referral (narrative)No reason for referral information availableMer[facility] Work Phone: Assessments Diagnosis Ventricular tachycardia (HCC) Paroxysmal ventricular tachycardia Advance Directives No Advanced Directives Records FoundDocuments on File Type Date Recorded 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 ACP-Advance Directive ACP-Power of Director Of Patient Safety Advance Directive Response Recorded Date/ Time Living Will No May 30, 2021 11:35am Power of Director Of Patient Safety No May 30 11:35am Advance Directive Response Recorded Date/ Time Living Will No March 26, 2022 1 0:40pm Power of Director Of Patient Safety No March 26, 2022 10:40pm Latest Code Status on File Code Status Date Activated Date Inactivated Comments Full Code-Unverified 05/27/2014 4:34 PM 05/27/2014 10:51 PM Advance Directive Response Recorded Date/ Time Living Will No March 26, 2022 9 :40pm Power of Director Of Patient Safety No March 26, 2022 9:40pm Summary Purpose Family History No Family History Records Found Relationship Condition Age at Onset Recorded Date/T kalpana Not Specified Diabetes mellitus Unknown Cardiac disease Unknown Malignant neoplasm Unknown Hypertension Unknown Relationship Condition Age at Onset Recorded Date/T kalpana father Cardiac disease Unknown grandfather Cardiac disease Unknown Not Specified Malignant neoplasm of breast Unknown Chief Complaint and Reason for Visit Chief Complaint overdue for OV HOLTER MONITOR PALPITATIONS Reason for Visit Essential hypertensi on Mixed hyperlipidemia WPW (Jfuqq-Uunjvnwlz-Pvkyb syndrome) Chief Complaint overdue for OV HOLTER MONITOR PALPITATIONS NEURO Reason for Visit Essential hypertensi on Mixed hyperlipidemia WPW (Cdfih-Ohysfinmj-Qeykv syndrome) Chief Complaint 3 m fu Reason for Visit Essential hypertensi on WPW (Uvbxe-Hwobveisq-Gmggo syndrome) Chief Complaint HIP AND KNEE PAIN Chief Complaint pain in heal- LEFT F OOT Chief Complaint Admit Date 2 wk left ovarian cystectomy October 142023 3:18pm recent start on eliquis, 4 days later blum , fatigue, January 29, 2025 3:47pm Reason for Visit Admit Date Postop check October 14, 2024 3:18pm Chief Complaint Admit Date BLURRED VISION, DDYSMETRIA, EVAL FOR MS March 23, 2025 1:47pm Chief Complaint Admit Date BLURRED VISION, DDYSMETRIA, EVAL FOR MS March 23, 2025 1:47pm abd pain July 03, 2025 12 :43pm Chief Complaint Admit Date BLURRED VISION, DDYSMETRIA, EVAL FOR MS March 23, 2025 1:47pm abd pain July 03, 2025 12 :43pm Abdominal pain July 13, 2025 2:47pm Reason for Visit Admit Date Abdominal pain July 13, 2025 2:47pm Reason for Referral Specialty Diagnoses / Procedures Referred By Andrea esqueda Referred To Contact Lab Diagnoses 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 Sendout: Hypokalemia and Related Disorders [place] [address] Referral ID Status Reason Start Date Expiration Date V isits Requested Visits Authorized [id number] Open Specialty Services Required 07/19/2022 07/19/2023 1 1 Specialty Diagnoses / Procedures Referred By Andrea esqueda Referred To Contact Diagnoses Left hand pain Jovita Carlos MD [address] [address] Referral ID Status Reason Start Date Expiration Date V isits Requested Visits Authorized [id number] New Request 08/15/2022 09/09/2023 1 1 Specialty Diagnoses / Procedures Referred By Andrea esqueda Referred To Contact Physical Therapy Diagnoses Left hand pain Jovita Carlos MD [address] [address] Referral ID Status Reason Start Date Expiration Date V isits Requested Visits Authorized [id number] New Request 08/15/2022 09/09/2023 1 1 Scheduling Instructions [facility] [address] [facility] 2nd [place] [address] Fax [facility] (Neck and Back Therapy) [address] [place], [place] [address] ) [phone] FAX [facility] [address] [place] [address] [phone] FAX [facility] [place] [address] [facility] [address] [place] [address] [phone] FAX [facility] [address] [place] [address] [phone] FAX [facility] [address] [place], [place] [address] FAX [facility] [address] [place], [place] [address] [phone] FAX Continued on next page [facility] [address] [place] [address] [phone] FAX [facility] [address] [facility], [address] [place] [address] FAX Specialty Diagnoses / Procedures Referred By Andrea esqueda Referred To Contact Radiology Diagnoses Plantar fasciitis Left foot pain Procedures MR Foot Left Without Contrast Cm Cobian Jr., DPM [address] [place] [address] RADIOLOGY [address] [place] [address] Referral ID Status Reason Start Date Expiration Date V isits Requested Visits Authorized [id number] New Request 06/18/2024 06/18/2025 1 1 Additional Source Comments INFORMATION SOURCE (unrecogn ized section and content) DATE CREATED AUTHOR 03/08/2021 [facility] DATE CREATED AUTHOR AUTHOR'S ORGANIZ ATION 08/01/2022 [facility] DATE CREATED AUTHOR AUTHOR'S ORGANIZ ATION 08/16/2022 [facility] DATE CREATED AUTHOR AUTHOR'S ORGANIZ ATION 09/28/2022 [facility] DATE CREATED AUTHOR AUTHOR'S ORGANIZ ATION 12/31/2022 [facility] DATE CREATED AUTHOR AUTHOR'S ORGANIZ ATION 10/09/2023 [facility] ([place] DATE CREATED AUTHOR AUTHOR'S ORGANIZ ATION 08/04/2024 [facility] DATE CREATED AUTHOR AUTHOR'S ORGANIZ ATION 01/18/2025 [facility] DATE CREATED AUTHOR AUTHOR'S ORGANIZ ATION 02/15/2025 [facility] DATE CREATED AUTHOR AUTHOR'S ORGANIZ ATION 05/09/2025 [facility] DATE CREATED AUTHOR AUTHOR'S ORGANIZ ATION 06/05/2025 [facility] DATE CREATED AUTHOR AUTHOR'S ORGANIZ ATION 07/15/2025 [facility] Goals (unrecognized section and content) Goals may be documented in a n alternate sectionGoals may be documented in an alternate sectionGoals may be documented in an alternate section No data available for this sectionGoals may be documented in an alternate section Goals from 09/21/2022 5:20 PM:Goal for Mobility : Decrease/Manage Pain,Maintain active lifestyle as tolerated Patient Stated Goals from 09/21/2022 5:20 PM:Patient's Personal Life Style and Recovery Goal : I'm ready to go homePatient's Personal Life Style and Recovery Plan : return home Goals from 09/21/2022 5:21 PM:Goal for Mobility : Medicate as prescribed to maintain comfort level,Position body/joint as needed to relieve pain/stress,Decrease/Manage Pain Patient Stated Goals from 09/21/2022 5:20 PM:Patient's Personal Life Style and Recovery Goal : I'm ready to go homePatient's Personal Life Style and Recovery Plan : return home Goals may be documented in an alternate sectionGoals may be documented in an alternate sectionGoals may be documented in an alternate section No data available for this sectionGoals may be documented in an alternate sectionGoals may be documented in an alternate sectionGoals may be documented in an alternate sectionGoals may be documented in an alternate section No data available for this sectionGoals may be documented in an alternate section No data available for this sectionGoals may be documented in an alternate sectionGoals may be documented in an alternate sectionGoals may be documented in an alternate sectionGoals may be documented in an alternate section Reason for Visit (unrecogniz ed section and content) Specialty Diagnoses / Procedures Referred By Contac t Referred To Contact Lab Diagnoses 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 Specialty Diagnoses / Procedures Referred By Contac t Referred To Contact General Surgery Diagnoses TOS (thoracic outlet syndrome) Maico Petty MD [address] [place] [address] [facility] [address] [place] [address] Referral ID Status Reason Start Date Expiration Date V isits Requested Visits Authorized [id number] New Request 08/06/2022 08/31/2023 1 1 Reason Comments Pain Pt reported (RT) fac ial /gum swelling x2 days. Reason Comments Foot Pain Patient presents for left heel pain on and off couple of month. Bottom of heel. Patient reports more intense pain last couple of week. Patient has what seems to be mild swelling side of heel. Patient has tried insoles, no relief Reason Comments Follow-up Patient presents for cortizone shot left foot Reason Comments Follow-up Patient presents for two week follow up left foot PF. Patient reports improvement with boot Reason Comments Foot Pain Left foot plantar fa scitis has came back. Reason Comments Follow-up Patient presents for one month follow up left foot PF. Patient states pain is still there, is hopeful for MRI Reason Comments Plantar Fasciitis Pt Presents for Left foot PF. C/o pain with Ambulation x 3 weeks Reason Comments Follow-up Pt Presents for MRI results of Left foot Reason Comments Pre-operative Medical Risk Stratificatio n Reason Comments Follow-up H&P Reason Comments Post-op L foot plantar fasci otomy - pt states that she was having a lot of pain and swelling for the first few days but doing better today Reason Comments Post-op PO f/u L ft plantar fasciotomy 01/19 Reason Comments Follow-up Pt here for post op and suture removal Reason Comments Post-op post op L PF 01/19/25 .Pt denies concerns Reason Comments Post-op Post op left foot pl radha fasciotomy from last month. Wearing boot when ambulatory. States it is much better. Reason Comments Follow-up Pt Presents for left foot pain. Had Plantar fascitis surgery in january. Pt c/o pain at incision site Care Teams (unrecognized sec tion and content) Blind Teacher Relationship Specialty Start Date End Date Marco A Marie MD [address] [place] [address] PCP - General Family Medicine 07/19/22 [place] [address] Attending Physician Medical Clinical Genetics 07/19/22 Blind Teacher Relationship Specialty Start Date End Date Zhao White DO PCP - General Family Medicine 04/03/14 Team Status: Active Member Role Status Dates No Primary Care Physician Family Provider Active Dr. Marco A Marie MD Primary Care Provider Active Team Status: Inactive Member Role Status Dates Dr. Marco A Marie MD Primary Care Provider Active Dr. Sarai Sosa DO Attending Provider Active Team Status: Inactive Member Role Status Dates Dr. Marco A Marie MD Primary Care Pr ovider, Attending Provider, Referring Provider Active Team Status: Inactive Member Role Status Dates Dr. Marco A Marie MD Primary Care Provider Active Milly Perry WASTE MANAGEMENT ENGINEER, WASTE MANAGEMENT ENGINEER-C Attending Provider Active Blind Teacher Relationship Specialty Start Date End Date Marco A Marie MD [address] [place] [address] [address] [place] [address] PCP - General Endocrinology/Metabolism 06/30/23 Blind Teacher Relationship Specialty Start Date End Date Marco A Marie MD [address] [place] [address] [address] [place], [place] [address] PCP - General Endocrinology/Metabolism 06/30/23 Team Status: Inactive Member Role Status Dates Dr. Marco A Marie MD Primary Care Provider, Attend ing Provider Active Blind Teacher Relationship Specialty Start Date End Date Marco A Marie MD [address] [place] [address] [address] [place] [address] PCP - General Endocrinology/Metabolism 06/30/23 Blind Teacher Relationship Specialty Start Date End Date Marco A Marie MD [address] [place] [address] [address] [place], [place] [address] PCP - General Endocrinology/Metabolism 06/30/23 Blind Teacher Relationship Specialty Start Date End Date Marco A Marie MD [address] [place] [address] [address] [place], [place] [address] PCP - General Endocrinology/Metabolism 06/30/23 Blind Teacher Relationship Specialty Start Date End Date Marco A Marie MD [address] [place] [address] [address] [place] [address] PCP - General Endocrinology/Metabolism 06/30/23 Blind Teacher Relationship Specialty Start Date End Date Marco A Marie MD [address] [place] [address] [address] [place] [address] PCP - General Endocrinology/Metabolism 06/30/23 Blind Teacher Relationship Specialty Start Date End Date Marco A Marie MD [address] [place] [address] [address] [place] [address] PCP - General Endocrinology/Metabolism 06/30/23 Blind Teacher Relationship Specialty Start Date End Date Marco A Marie MD [address] [place] [address] [address] [place] [address] PCP - General Endocrinology/Metabolism 06/30/23 Blind Teacher Relationship Specialty Start Date End Date Marco A Marie MD [address] [place] [address] [address] [place], [place] [address] PCP - General Endocrinology/Metabolism 06/30/23 Blind Teacher Relationship Specialty Start Date End Date Marco A Marie MD [address] [place] [address] [address] [place], [place] [id number] PCP - General Endocrinology/Metabolism 06/30/23 Team Status: Active Member Role Status Dates Dr. Marco A Marie MD Primary Care Provider Active Team Status: Inactive Member Role Status Dates Dr. Marco A Marie MD Primary Care Provider Active Start: October 14, 2024 End: October 14, 2024 Dr. Marco A Marie MD Referring Provider Active Start: October 14, 2024 End: October 14, 2024 Maddie Gaytan WASTE MANAGEMENT ENGINEER, WASTE MANAGEMENT ENGINEER-C Attending Provider Active Start: October 14, 2024 End: October 14, 2024 Team Status: Inactive Member Role Status Dates Dr. Marco A Marie MD Primary Care Provider Active Start: January 29, 2025 End: January 29, 2025 Dr. Marco A Marie MD Attending Provider Active Start: January 29, 2025 End: January 29, 2025 Dr. Marco A Marie MD Referring Provider Active Start: January 29, 2025 End: January 29, 2025 Team Status: Active Member Role/Relationship Status Dates Dr. Marco A Marie MD Primary Care Provider Active Team Status: Inactive Member Role/Relationship Status Dates Dr. Marco A Marie MD Primary Care Provider Active Start: March 23, 2025 End: March 23, 2025 Dr. Marco A Marie MD Attending Provider Active Start: March 23, 2025 End: March 23, 2025 Dr. Marco A Marie MD Referring Provider Active Start: March 23, 2025 End: March 23, 2025 Team Status: Inactive Member Role/Relationship Status Dates Dr. Marco A Marie MD Primary Care Provider Active Start: June 09, 2025 End: June 09, 2025 Dr. Francis Miranda MD Attending Provider Active St art: June 09, 2025 End: June 09, 2025 Team Status: Inactive Member Role/Relationship Status Dates Dr. Marco A Marie MD Primary Care Provider Active Start: June 29, 2025 End: June 29, 2025 Dr. Maico Petty MD Attending Provider Active Start: June 29, 2025 End: June 29, 2025 Team Status: Inactive Member Role/Relationship Status Dates Dr. Marco A Marie MD Primary Care Provider Active Start: July 03, 2025 End: July 03, 2025 Dr. Maico Petty MD Attending Provider Active Start: July 03, 2025 End: July 03, 2025 Dr. Maico Petty MD Referring Provider Active Start: July 03, 2025 End: July 03, 2025 Team Status: Inactive Member Role/Relationship Status Dates Dr. Marco A Marie MD Primary Care Provider Active Start: July 13, 2025 End: July 13, 2025 Dr. Marco A Marie MD Referring Provider Active Start: July 13, 2025 End: July 13, 2025 Dr. Jessica Qureshi MD Attending Provider Active Start: July 13, 2025 End: July 13, 2025 Care Team (unrecognized sect ion and content) Care Team Personnel Name: PHYSICIAN, NONE Position: Physician Member Role: Primary Care Physician Care Team Related Persons Name: THOMAS ELLIOTT Name: ROSANNE ELLIOTT Address: [facility] Address: [address] [address] [place] Source Comments (unrecognize d section and content) In the event this informatio n is protected by the Federal Confidentiality of Alcohol and Drug Abuse Patient Records regulations: The Federal rules restrict any use of the information to criminally investigate or prosecute any alcohol or drug abuse patient.[facility] FOR RECORDS PERTAINING TO PATIENTS [...] BE BASED ON THE PRIMARY CLINICAL RECORDS. [facility]. provides no warranty or guarantee of the accuracy or completeness of information in this document.
--- NOTE | 2025-07-15 07:25 | HP.PCM_ITS ---
History and Physical Date of Admission: 07/15/25 Date of Service: 07/13/25 MR#: [id number] Acct: [id number] Name: ELOISE ELLIOTT Rep #: [id number] : 1985 Provider: Dr. Jessica Qureshi MD Age/Sex: 40/F Location: [facility] Status: Signed Intake Vital Signs 07/03/2512:54 07/13/2515:03 Height 5 ft 6 in 5 ft 6 in Weight: 161 lb BMI 25.9 BP 128/88 H Blood Pressure Location Rt brachial Position Sitting Respiration 17 Pulse 85 Pulse Source Monitor Pulse Oximetry (%) 99 Oxygen Delivery Method room air Intake Visit Reasons: Abdominal pain Chief Complaint: abdominal pain/scopes Is patient in pain?: No Allergies adhesive tape Allergy (Mild, Verified 07/13/25 16:24) RashIodinated Contrast Media Allergy (Unknown, Verified 07/13/25 16:24) Itching Medications ?Medication ?Instructions ?Recorded ?Confirmed ?Type amiloride 5 mg tablet 10 mg PO BID 02/16/22 07/13/25 History clonidine HCl 0.1 mg tablet 0.1 mg PO TID hypertensive 05/22/22 0906/29 History emergency fluoxetine 10 mg capsule 10 mg PO BID 07/13/25 07/13/25 History hydralazine 50 mg tablet 50 mg PO TID 07/13/25 07/13/25 History omeprazole 40 mg capsule,delayed 40 mg PO QDAY #30 caps 07/13/25 07/13/25 Rx release verapamil 180 mg tablet,extended 180 mg PO DAILY 07/13/25 07/13/25 Histor y release PFSH Medical History (Updated 07/14/25 @ 09:[address] Jessica Qureshi MD) Blood disorder Gastric reflux Wears contact lenses Depression Anxiety Easy bruising Injury of head and neck Former smoker History of echocardiogram Cardiology follow-up encounter Juan J's syndrome PSVT (paroxysmal supraventricular tachycardia) Hypertensive heart disease without HF (heart failure) Mixed hyperlipidemia Essential hypertension TIA (transient ischemic attack) Tachycardia Surgical History (Updated 07/13/25 @ 16:32 by Anisa Laguna) Hx of ovarian cystectomy Hx of foot surgery History of right oophorectomy History of resection of rib S/P tubal ligation History of hysterectomy Family History (Updated 07/13/25 @ 15:03 by Rosanne De Santiago) Father Heart diseaseGrandfather Heart diseaseMaternal Grandmother Breast cancer Social History household members: spouse current occupational status: employed 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 Patient states that for the last 2 months she has had lower abdominal discomfort constantly, and after eating it will increase to 6?7/10 and last for about a couple hours does not matter what she eats. Previous to 2 months ago this would happen on and off. Patient states she only has diarrhea after eating. Patient states she is also had about 30 pound weight loss in 2 months as she does not feel like eating if she gets abdominal cramping pain and also has to run to the bathroom. Patient does admit to some left upper quadrant pain as well as some burning up the esophagus which did bring up the esophagus only happens about 2 times a month. ROS General General: Yes weight change and fatigue; No appetite, colon cancer, breast cancer or weakness HEENT HEENT: No difficulty swallowing, eye injury, eye surgery, swollen glands or hoarseness Endo Endocrine: No thyroid disease, diabetes mellitus, thyroid cancer, Hair loss, heat intolerance or cold intolerance Skin Skin: No rash or changing moles Musc Musculoskeletal: No back problems, arthritis, rheumatoid arthritis, gout or joint pain Cardio Cardiovascular: Yes high blood pressure; No murmur, pacemaker, heart disease, atrial fibrillation, heart attack, heart stent, palpitations, shortness of breath with exertion or chest pain Psych Psychiatric: Yes depression and anxiety; No hearing voices Resp Respiratory: No shortness of breath, No sleep apnea, No cough, No COPD, No asthma, No emphysema and No wheezing Gastro Gastrointestinal: Yes abdominal pain, Yes nausea or vomiting, Yes diarrhea, Yes constipation, Yes blood in stool, Yes acid reflux, No hemorrhoids, No ulcers, Yes gallbladder problem and No black,tarry stools Won Hematologic: No blood thinners, No blood disorders, No bleeding, No anemia and No blood clots Neuro Neurologic: No system reviewed and no additional complaints, except as documented, No as per HPI, No abnormal gait, No abnormal hearing, No abnormal movements, No abnormal speech, No behavioral changes, No burning sensations, No confusion, No convulsions, No disequilibrium, No dizziness, No localized weakness, No frequent falls, No headache(s), No lack of coordination, No loss of vision, No memory loss, No numbness, No other visual disturbances, No radicular pain, No restless legs, No sensory deficit, No syncope, No tingling, No tremor(s), No weakness and No other Exam Const General: cooperative, healthy appearing, comfortable and no acute distress [facility] Head: normocephalic and atraumatic Neck Neck: supple Resp Effort & Inspection: normal respiratory effort Cardio Rate: regular rate GI Inspection: non-distended Palpation: soft, no guarding and tender in the LLQ, in the RLQ and in the LUQ; with no rebound tenderness Skin General: no rashes or lesions noted Neuro General: CN's II-XI intact bilaterally Extrem General: normal to inspection Psych Mental Status: mental status grossly normal Attitude: cooperative Assessment and Plan Assessment and Plan (1) Abdominal pain: Qualifiers: Abdominal location: left upper quadrant Qualified Code(s): R10.12 - Left upper quadrant pain (2) Diarrhea: Status: Acute (3) Weight loss, non-intentional: Status: Acute Orders: Orders Colonoscopy 07/15/25 Cheri RODRIGUEZ PA-C EGD 07/15/25 Cheri RODRIGUEZ PA-C Medications: New omeprazole swallow whole; do not crush, chew, dissolve, cut, break 40 mg PO QDAY [address] Jessica Qureshi MD dicyclomine 30 mins before meals &/or bedtime 20 mg PO BID [address] Jessica Qureshi MD Plan Last give patient a prescription for omeprazole due to the left upper quadrant pain as well as Bentyl as she has crampy abdominal pain immediately after eating and has to run to the bathroom. I have discussed the above with the patient. I have offered the patient esophagogastroduodenoscopy and colonoscopy for evaluation. Will plan for random biopsies. I have explained the risks/benefits of the procedure and described the procedure. I have discussed the risks with the patient, including but not limited to: infection, bleeding, perforation of the GI tract requiring emergency surgery, inability to complete the procedure, injury to any internal organs, complications of anesthesia, etc. - the patient understands and agrees to proceed. I have answered all the patient's questions to the patient's satisfaction and the patient has no further questions. The patient has been given instructions for the colon cleansing preparation. 1 day of clears, MiraLAX Dulcolax prep. Jessica Qureshi M.D. Pager: [phone] [facility] [address] [place] [address] [address] [place] [address] Office: [phone] Coding Level of Care Code Off vis,new,level 3 Diagnoses Left upper quadrant abdominal pain R10.12 Abdominal location: left upper quadrant Diarrhea R19.7 Weight loss, non-intentional R63.4 07/14/25 0927 <Electronically signed by Jessica Qureshi MD> Date Jessica Qureshi MD
[2025-07-15] MEDS: Lactated Ringers 1,000 ML 15 ML IV (07:58)
--- NOTE | 2025-07-15 08:07 | PCM.PRE.AN2 ---
ASA Classification* ASA Classification ASA Classification: 2 Assessment & Plan Anesthesia* Anesthesia Assessment Anesthesia Assessment: Discussed sedation and/or anesthesia options, risks, benefits, and alternatives with patient/parents/legal guardian/POA. Questions invited. The patient/parents/legal guardian/POA seems to understand and agrees to proceed with anesthesia plan. Reviewed the physical assessment, medical history, allergy history and patient home medications list prior to surgery/procedure/anesthetic and documented any changes. Performed airway and anesthesia risk assessments. Anesthesia Type Anesthesia Type: MAC History Source History Obtained from:: Patient and Chart Anesthesia Focused Assessment* Temperature: 97.6 F Pulse Rate: 81 Blood Pressure: 151/107 Respiratory Rate: 16 Pulse Ox: 98 Oxygen Delivery Method: Room Air Airway Assessment Mouth opens: >3 cm Mallampati Score: II Teeth Condition: Intact Neck Range of motion (ROM): Full ROM Labs Anesthesia Preop lab: CBC WBC 6.0 K/mm3 (4.4-11.0) 06/29/25 11:35 06/29/25 RBC 4.58 M/mm3 (4.2-5.4) 06/29/25 11:35 06/29/25 Hgb 13.6 g/dL (12.0-15.0) 06/29/25 11:35 06/29/25 Hct 41.0 % (37-47) 06/29/25 11:35 06/29/25 Plt Count 343 K/mm3 (150-450) 06/29/25 11:35 06/29/25 CHEMISTRY Potassium 4.3 mmol/L (3.3-5.1) 06/29/25 11:35 06/29/25 Sodium 140 mmol/L (133-145) 06/29/25 11:35 06/29/25 Magnesium 2.1 mg/dL (1.5-2.2) 06/09/25 16:36 06/09/25 Phosphorus 2.8 mg/dL (2.5-4.9) 09/05/23 13:39 09/05/23 BUN 8 mg/dL (4-19) 06/29/25 11:35 06/29/25 Creatinine 0.75 mg/dL (0.70-1.20) 06/29/25 11:35 06/29/25 Glucose 78 mg/dL (70-99) 06/29/25 11:35 06/29/25 POC Glucose 104 mg/dL (70-110) 05/30/21 07:54 05/30/21 TSH 4.160 uIU/mL (0.300-4.200) 06/09/25 16:36 06/09/25 COAG PT 12.1 SECONDS (11.7-14.9) 09/17/24 15:52 09/17/24 Urine Test Negative Negative 09/23/24 13:20 09/23/24 Pre-Assessment Diagnosis/Proposed Procedure Planned Operative Procedure(s): EGD/CSCOPE Anesthesia History Anesthesia History - meat boner and slicer: Anesthesia History - meat boner and slicer Hx Hospitalization No 07/13/25 16:27 Any Problems With Anesthesia No 07/13/25 16:27 Cholinesterase deficiency No 07/13/25 16:27 You/Your Family Experience No 07/13/25 16:27 fever (hyperthermia) with Relationship Recent Exposure to Contagious No 07/15/25 07:47 Disease Does patient have nerve No 07/13/25 16:27 stimulator Patient instructed to have device shut off --Does patient have Pacemaker No 07/15/25 07:47 or ICD? When Was Last Pacemaker Check QUESTION #4 FULL TEXT: You/Your Family Experience fever (hyperthermia) with Anesthesia Last Oral Intake Last Oral intake: Last Oral Intake NPO since 22:00 07/15/25 07:47 Meds taken in AM with sips of No 07/15/25 07:47 water? Meds patient instructed to take am of surgery PONV PONV - meat boner and slicer: PONV - meat boner and slicer Female Yes 07/13/25 16:27 HX of Motion Sickness No 07/13/25 16:27 HX of N/V After Surgery No 07/13/25 16:27 Non-Smoker Yes 07/13/25 16:27 Duration of Surgery greater No 07/13/25 16:27 than 60 minutes Number of Risk Factors 2 07/13/25 16:27 PONV Score Moderate Risk 07/13/25 16:27 Height & Weight Height & Weight: Anesthesia: Height & Weight Height 5 ft 6 in 07/15/25 07:47 Weight: 72 kg 07/15/25 07:47 Body Mass Index (BMI) 25.6 07/15/25 07:47 Respiratory Assessment Respiratory Assessment - meat boner and slicer: Respiratory Tract Infection Hx - meat boner and slicer Hx Respiratory Tract Infection No 07/13/25 16:27 STOP Sleep Apnea STOP Sleep Apnea - meat boner and slicer: STOP Sleep Apnea - meat boner and slicer Hx Hypertension Yes: CONTROLLED WITH MED 07/13/25 16:27 Hx Sleep Apnea No 07/13/25 16:27 CPAP BIPAP Do you snore loudly (louder No 07/13/25 16:27 than talking or can be heard Do you often feel tired/ No 07/13/25 16:27 fatigued/ sleepy during daytime? Has anyone observed you stop No 07/13/25 16:27 breathing during sleep? STOP Results Negative 07/13/25 16:27 QUESTION #5 FULL TEXT : Do you snore loudly (louder than talking or can be heard through closed doors)? Tobacco Use History Tobacco Use History - meat boner and slicer: Tobacco Use History - meat boner and slicer Tobacco Use Smoking Status Former smoker 07/13/25 16:27 Hx Tobacco Use No 07/13/25 16:27 Years Smoking Packs Smoked per Day Smoking Cessation Date was Yes - quit smoking within 15 07/13/25 16:27 within the last 15 years years Hx Smoking Cessation Date 05/05/22 07/13/25 16:27 Hx Smoking Cessation No 07/13/25 16:27 Counseling Hematologic Medial History Hematologic Hx - meat boner and slicer: Hematologic Medical Hx - architect intern Hx of Blood Transfusion No 07/13/25 16:27 Hx of Transfusion in last 3 No 07/13/25 16:27 Months Date of Last Transfusion (if within last 3 months) Ever experience any problems No 07/13/25 16:27 with transfusion(s)? Specify any problems Hx of Preganancy in last 3 No 07/13/25 16:27 Months Nurse Filling Out Transfusion DSCHRIBER 07/13/25 16:27 & Questions: Date: 07/13/25 07/13/25 16:27 Time: 16:28 07/13/25 16:27 Patient unable to answer at this time (ie. confused, unrespo /Reproduction History /Reproductive History - meat boner and slicer: /Reproductive Hx- meat boner and slicer Hx Now No 07/13/25 16:27 Gestational Age (in weeks): EDC: Hx Hx Para Hx Section SAB No 07/13/25 16:27 Active Medications Active Medications: Current Medications Generic Name Dose Route Start Last Admin Trade Name Freq PRN Reason Stop Dose Admin Lactated Ringer's 1,000 mls @ 15 mls/hr 07/15/25 08:00 07/15/25 07:58 IV 15 mls/hr .Q48H BALDOMERO Administration PFSH Medical History Blood disorder Gastric reflux Wears contact lenses Depression Anxiety Easy bruising Injury of head and neck Former smoker History of echocardiogram Cardiology follow-up encounter Juan J's syndrome PSVT (paroxysmal supraventricular tachycardia) Hypertensive heart disease without HF (heart failure) Mixed hyperlipidemia Essential hypertension TIA (transient ischemic attack) Tachycardia Home Medications ?Medication ?Instructions ?Recorded ?Last Taken ?Type amiloride 5 mg tablet 10 mg PO BID 02/16/22 07/14/25 History clonidine HCl 0.1 mg tablet 0.1 mg PO TID hypertensive 05/22/22 07/14/25 History emergency fluoxetine 10 mg capsule 10 mg PO BID 07/13/25 07/14/25 History hydralazine 50 mg tablet 50 mg PO TID 07/13/25 07/14/25 History omeprazole 40 mg capsule,delayed 40 mg PO QDAY #30 caps 07/13/25 Unknown Rx release verapamil 180 mg tablet,extended 180 mg PO DAILY 07/13/25 07/14/25 History release Allergy/AdvReac Type Severity Reaction Status Date / Time adhesive tape Allergy Mild Rash Verified 07/15/25 07:45 Iodinated Contrast Media Allergy Unknown Itching Verified 07/15/25 07:45 Family History Father Heart disease Grandfather Heart disease Maternal Grandmother Breast cancer Surgical History Hx of ovarian cystectomy Hx of foot surgery History of right oophorectomy History of resection of rib S/P tubal ligation History of hysterectomy Social History household members: spouse 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
--- NOTE | 2025-07-15 08:30 | COLBX_PTH ---
PATIENT: ELOISE ELLIOTT LOC: EN U#:[id number] AGE/SX: 40/F ROOM: RE07/15/[address]: Dr. Jessica Qureshi MD : 1985 BED: DIS: 07/15/2025 SPEC #: [id number] RECD: 07/15/25 11:39 STATUS: CADEN REPravin #: [id number] ORI: 07/15/25 08:[address]: Jessica Qureshi DEPT: SURGICAL PATHOLOGY RECD BY: Mohit Hassan ENTERED: 07/15/25 13:37 SP TYPE: COLON BX OTHR DR: Dr. Mick Marie MD Tissues: A - Gastric mucous membrane B - COLON BIOPSY Procedures: Immunohistochemical Stains Surgery Specimen Level IV HEADER OPERATION: Colonoscopy with biopsies, EGD with biopsy PRE-OP DIAGNOSIS: Abdominal pain weight loss, diarrhea TISSUE SUBMITTED: A- Antrum biopsy, B- Random colon biopsy MICROSCOPIC DIAGNOSIS A. Gastric antrum, biopsy: - features of reactive gastropathy. - IHC negative for H. pylori organisms. B. Colon, random, biopsy: - no specific pathologic change. MICROSCOPIC DESCRIPTION Slides are reviewed. All matched controls reacted appropriately. These tests were developed and their performance characteristics determined by [facility]. They may not have been cleared or approved by the U.S. Food and Drug Administration. The FDA hasdetermined that such clearance or approval is not necessary. The above immunohistochemical/dualISH markers are reviewed by the Pathologist. GROSS DESCRIPTION A. Received in fixative is one container labeled with the patient's name and designated Antrum biopsy. The specimen consists of one irregular fragment of light [place] soft tissue that measures 0.6 cm. The specimen is totally submitted in one cassette. B. Received in fixative is one container labeled with the patient's name and designated Random colon biopsy. The specimen consists of two irregular fragments of light [place] soft tissue that measure 0.3 and 1 cm. The specimen is totally submitted in one cassette. MA 07/15/2025 CPT:25898l8,21543
--- NOTE | 2025-07-15 10:09 | OP.PROVAT_ITS ---
07/15/2025 Mick Marie [address] [place] [address] Re : Upper GI endoscopy procedure for Malissa Cui Dear Dr. Marie This procedure was performed on Tuesday, July 15, 2025. My impressions and recommendations are as follows: Impressions : - Z-line variable, 40 cm from the incisors. - Normal examined duodenum. - Erythematous mucosa in the antrum. Biopsied. - No gross lesions in the entire esophagus. Recommendations : - Await pathology results. - Discharge patient to home. - Resume previous diet. - Use Prilosec (omeprazole) 40 mg PO daily. - Use Pepcid (famotidine) 20 mg PO daily for 2-3 days then PRN only. - Continue present medications. My findings are described in the full procedure note, which is enclosed. If I can be of further assistance, please feel free to contact me at Doctor phone number(s): , Work: . Sincerely, MD Jessica Hahn MD 07/15/2025 10:08:46 AM This report has been signed electronically.
--- NOTE | 2025-07-15 10:09 | OP.EGD_ITS ---
Patient Name: Malissa Cui Procedure Date: 07/15/2025 9:33 AM Date of : 1985 Age: 40 Procedure: Upper GI endoscopy Indications: Abdominal pain in the left upper quadrant, Weight loss Providers: Jessica Qureshi MD Medicines: Monitored Anesthesia Care Patient Profile: This is a 40 year old female. Complications: No immediate complications. Procedure: Pre-Anesthesia Assessment: - Prior to the procedure, a History and Physical was performed, and patient medications and allergies were reviewed. The patient's tolerance of previous anesthesia was also reviewed. The risks and benefits of the procedure and the sedation options and risks were discussed with the patient. All questions were answered, and informed consent was obtained. Prior Anticoagulants: The patient has taken no anticoagulant or antiplatelet agents. ASA Grade Assessment: Per anesthesia. After reviewing the risks and benefits, the patient was deemed in satisfactory condition to undergo the procedure. After obtaining informed consent, the endoscope was passed under direct vision. Throughout the procedure, the patient's blood pressure, pulse, and oxygen saturations were monitored continuously. The pediatric colonoscope was introduced through the mouth, and advanced to the second part of duodenum. The upper GI endoscopy was accomplished without difficulty. The patient tolerated the procedure well. Scope In: 9:41:38 AM Scope Out: 9:46:32 AM Total Procedure Duration Time 0 hours 4 minutes 54 seconds Findings: The Z-line was variable and was found 40 cm from the incisors. The examined duodenum was normal. Mildly erythematous mucosa without bleeding was found in the gastric antrum. Biopsies were taken with a cold forceps for histology. Biopsies were taken with a cold forceps for Helicobacter pylori cultures. The cardia and gastric fundus were normal on retroflexion. No gross lesions were noted in the entire esophagus. Impression: - Z-line variable, 40 cm from the incisors. - Normal examined duodenum. - Erythematous mucosa in the antrum. Biopsied. - No gross lesions in the entire esophagus. Recommendation: - Await pathology results. - Discharge patient to home. - Resume previous diet. - Use Prilosec (omeprazole) 40 mg PO daily. - Use Pepcid (famotidine) 20 mg PO daily for 2-3 days then PRN only. - Continue present medications. Procedure Code(s): --- Professional --- 87651, Esophagogastroduodenoscopy, flexible, transoral; with biopsy, single or multiple Diagnosis Code(s): --- Professional --- K22.89, Other specified disease of esophagus K31.89, Other diseases of stomach and duodenum R10.12, Left upper quadrant pain R63.4, Abnormal weight loss CPT copyright 2021 [employer]. All rights reserved. The codes documented in this report are preliminary and upon rope rider review may be revised to meet current compliance requirements. MD Jessica Hahn MD 07/15/2025 10:08:46 AM This report has been signed electronically. Number of Addenda: 0 Note Initiated On: 07/15/2025 9:33 AM
--- NOTE | 2025-07-15 10:11 | PCM.POST.ANE ---
Anesthesia: Postop Eval I Current Vital Signs Temperature: 97.8 F Pulse Rate: 86 Blood Pressure: 118/89 Respiratory Rate: 18 Pulse Ox: 99 Oxygen Delivery Method: Room Air Assessment Airway patent: Yes Spontaneous unlabored respirations: Yes Mental status: Asleep nausea: No Vomiting: No Anesthesia Complication: No Fluid Hydration Crystalloid volume administer (ml): 600 Total IV fluid infused: 600 Progress Note Anesthesia document: Postop Eval 1 completed: Yes
--- NOTE | 2025-07-15 10:12 | OP.COLON_ITS ---
Patient Name: Malissa Cui Procedure Date: 07/15/2025 9:46 AM Date of : 1985 Age: 40 Procedure: Colonoscopy Indications: Abdominal pain in the left lower quadrant, Abdominal pain in the left upper quadrant, Abdominal pain in the right lower quadrant, Chronic diarrhea, Weight loss Providers: Jessica Qureshi MD Medicines: Monitored Anesthesia Care Patient Profile: This is a 40 year old female. Last Colonoscopy: none. The patient's first colonoscopy is today. Complications: No immediate complications. Procedure: Pre-Anesthesia Assessment: - Prior to the procedure, a History and Physical was performed, and patient medications and allergies were reviewed. The patient's tolerance of previous anesthesia was also reviewed. The risks and benefits of the procedure and the sedation options and risks were discussed with the patient. All questions were answered, and informed consent was obtained. Prior Anticoagulants: The patient has taken no anticoagulant or antiplatelet agents. ASA Grade Assessment: Per anesthesia. After reviewing the risks and benefits, the patient was deemed in satisfactory condition to undergo the procedure. After I obtained informed consent, the scope was passed under direct vision. Throughout the procedure, the patient's blood pressure, pulse, and oxygen saturations were monitored continuously. The pediatric colonoscope was introduced through the anus and advanced to the cecum, identified by the appendiceal orifice, ileocecal valve and palpation. The colonoscopy was performed without difficulty. The patient tolerated the procedure well. The quality of the bowel preparation was good. Scope In: 9:47:10 AM Scope Withdrawal Time 0 hours 9 minutes 33 seconds Scope Out: 10:02:37 AM Total Procedure Duration Time 0 hours 15 minutes 27 seconds Findings: The perianal and digital rectal examinations were normal. A few small-mouthed diverticula were found in the sigmoid colon. Two biopsies were obtained with cold forceps for histology randomly. The exam was otherwise without abnormality on direct and retroflexion views. Impression: - Diverticulosis in the sigmoid colon. - The examination was otherwise normal on direct and retroflexion views. - Two biopsies were obtained. Recommendation: - Discharge patient to home. - Resume previous diet. - Continue present medications. - Await pathology results. - Repeat colonoscopy in 10 years for screening purposes. Procedure Code(s): --- Professional --- 39034, Colonoscopy, flexible; with biopsy, single or multiple Diagnosis Code(s): --- Professional --- R10.32, Left lower quadrant pain R10.12, Left upper quadrant pain R10.31, Right lower quadrant pain K52.9, Noninfective gastroenteritis and colitis, unspecified R63.4, Abnormal weight loss K57.30, Diverticulosis of large intestine without perforation or abscess without bleeding CPT copyright 2021 [employer]. All rights reserved. The codes documented in this report are preliminary and upon fluid pump operator review may be revised to meet current compliance requirements. MD Jessica Hahn MD 07/15/2025 10:11:39 AM This report has been signed electronically. Number of Addenda: 0 Note Initiated On: 07/15/2025 9:46 AM
--- NOTE | 2025-07-15 10:12 | OP.PROVAT_ITS ---
07/15/2025 Mick Mraie [address] [place] [address] Re : Colonoscopy procedure for Malissa Cui Dear Dr. Marie This procedure was performed on Tuesday, July 15, 2025. My impressions and recommendations are as follows: Impressions : - Diverticulosis in the sigmoid colon. - The examination was otherwise normal on direct and retroflexion views. - Two biopsies were obtained. Recommendations : - Discharge patient to home. - Resume previous diet. - Continue present medications. - Await pathology results. - Repeat colonoscopy in 10 years for screening purposes. My findings are described in the full procedure note, which is enclosed. If I can be of further assistance, please feel free to contact me at Doctor phone number(s): , Work: . Sincerely, MD Jessica Hahn MD 07/15/2025 10:11:39 AM This report has been signed electronically.
--- NOTE | 2025-07-15 10:37 | PCM.POSTANE2 ---
Anesthesia Postop Eval I Sum Postop Eval Completion status Anesthesia document: Postop Eval 1 completed: Yes Anesthesia Postop Eval I Summary Anesthesia Postop Eval I Summary: Anesthesia Postop Eval I: Assessment Summary Airway patent Yes 07/15/25 10:12 [email or web address] Spontaneous unlabored Yes 07/15/25 10:12 [email or web address] respirations Mental status Asleep 07/15/25 10:12 [email or web address] nausea No 07/15/25 10:12 [email or web address] Vomiting No 07/15/25 10:12 [email or web address] Anesthesia Postop Eval I: Fluid Summary Crystalloid volume administer 600 07/15/25 10:12 [email or web address] (ml) Colloids volume administered ( ml) Blood Product volume administered (ml) Total IV fluid infused 600 07/15/25 10:12 [email or web address] Anesthesia Postop Eval I: Summary Notes Anesthesia Complication No 07/15/25 10:12 [email or web address] Anesthesia Complication Comment: Post-operative progress note Anesthesia: Postop Eval II Evaluation Mental status: Awake and Calm Pain Level: 1 nausea: No Vomiting: No Complications Anesthesia Complication: No
== END 2025-07-15 10:42 | disposition home or self-care (01) ==
LOC: EN 07:11 → AC 07:12
PROVIDERS: PCP Family Medicine; Referring Provider Family Medicine; Visit Provider Surgery
PROC: 0DJD8ZZ Inspection of Lower Intestinal Tract, Via Natural or Artificial Opening Endoscopic (ICD-10-PCS; CPT 45378; principal; 2025-07-15 08:25)
DX: R10.31 Right lower quadrant pain (principal); K52.9 Noninfective gastroenteritis and colitis, unspecified; R10.32 Left lower quadrant pain; K31.89 Other diseases of stomach and duodenum; R63.4 Abnormal weight loss; K22.89 Other specified disease of esophagus; K57.30 Diverticulosis of large intestine without perforation or abscess without bleeding; Z87.891 Personal history of nicotine dependence; K21.9 Gastro-esophageal reflux disease without esophagitis; I11.9 Hypertensive heart disease without heart failure; E78.2 Mixed hyperlipidemia; Z79.899 Other long term (current) drug therapy
CPT/HCPCS: 45380; 43239; 88305; 88342; A4216; J2405

== ENCOUNTER → 2025-08-14 | Outpatient (CLI) | payer BC, SELFPAY ==
[2025-08-14 08:19] LABS: Mucous, Urine 0 SEEN /hpf (<or=2+); Red Blood Cells-Urine 0 SEEN /hpf (0-5)
[2025-08-14 10:30] LABS: Color, Urine Yellow (Yellow); Glucose, Dipstick Normal (Normal); Ketone-Dipstick Negative (Negative); Leukocyte Esterase-Dipstick Negative /ul (Negative); Nitrite-Dipstick Negative (Negative); Occult Blood-Urine Negative /ul (Negative); Protein-Dipstick 15 mg/dl (Negative); Specific Gravity, Urine 1.020 (1.002-1.030); Urine Bilirubin Dipstick Negative (Negative)
[2025-08-14 10:32] LABS: Hematocrit 40.4 % (37-47); Hemoglobin 13.6 g/dL (12.0-15.0); Immature Granulocytes Count 0.020 X10^3/uL (0.0-0.0); Mean Corp Hgb Conc 33.7 g/dL (32-36); Mean Corpuscular Volume 88.4 fL (81-99); Mean Platelet Vol. 10.9 fl (6.2-12.0); NRBC Flagged by Analyzer 0 % (0-5); Platelet Count 324 K/mm3 (150-450); RBC Distribution Width CV 13.7 % (11.6-14.6); RBC Distribution Width SD 44.1 fl (35.1-43.9); Red Blood Count 4.57 M/mm3 (4.2-5.4); White Blood Count 6.4 K/mm3 (4.4-11.0)
[2025-08-14 10:49] LABS: Squamous Epithelial Cells - UA 0-5 SEEN /hpf (5-10)
[2025-08-14 10:57] LABS: AST(SGOT) 12 U/L (<=31); Alanine Aminotransfer ALT/SGPT 9 U/L (<=34); Albumin, Serum 4.4 g/dL (3.5-5.0); Alkaline Phosphatase 52 U/L (35-104); Anion Gap 12 (5-15); BUN 9 mg/dL (4-19); BUN/Creat Ratio 12.7 RATIO (10-20); Calcium,Total 9.1 mg/dL (7.6-11.0); Carbon Dioxide 21.1 mmol/L (21.0-32.0); Chloride 106 mmol/L (98-108); Cholesterol 173 mg/dL (<=200); Globulin 2.8 g/dL (2.2-4.2); Glucose 81 mg/dL (70-99); Low Density Lipoprotein Calc. 101 mg/dL; Magnesium 2.1 mg/dL (1.5-2.2); Potassium 4.1 mmol/L (3.3-5.1); Triglycerides 112 mg/dL; Very Low Density Lipoprotein 22 mg/dL (5-40); cholesterol:hdl ratio screen 3.45
== END | disposition home or self-care (01) ==
LOC: MFPLAB 08:18
PROVIDERS: PCP Family Medicine; Visit Provider Family Medicine
DX: I10 Essential (primary) hypertension (principal)
CPT/HCPCS: 36415; 80053; 80061; 81001; 83735; 84443; 85025

== ENCOUNTER → 2025-10-21 | Outpatient (CLI) | payer BC, SELFPAY ==
--- NOTE | 2025-10-21 07:12 | US_ITS ---
PROCEDURE: ABDOMEN LIMITED 10/21/2025 REASON FOR EXAM: RUQ PAIN AFTER EATING TECHNIQUE: Procedure Code: USABDL Modality: US Procedure: ABDOMEN LIMITED COMPARISON: CT scan of the abdomen and pelvis dated July 03, 2025. FINDINGS: Liver: The liver measures 17.7 cm. It is of homogeneous echotexture. Gallbladder: There are 2, polyps adherent to the gallbladder wall. The larger measures 6 mm x 5 mm x 5 mm. Common bile duct: Normal measuring 4.8 mm . Pancreas: Normal Other: Visualized portions of the right kidney are unremarkable. No right upper quadrant ascites. US/Abdomen Limited IMPRESSION: The liver is nonenlarged. There are 2, gallbladder polyps. The larger measures 6 mm x 5 mm x 5 mm. Reading Location: [id number]
--- OUTSIDE RECORDS SUMMARY | 2025-10-21 07:16 | XMS RPT_ITS | CCD ---
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 Comment: Order Date: 06/09/25 Order Info: 0786-1 - CMP Order Info: 25966-1 - MG Order Info: 32064-1 - CRP Order Info: 3 - TSH Performed By: #### L 501.9520, L7000.5300, L501.6710, L501.5200, L500.4050 #### [facility] [address] [place], [address] RDW SD 44.1 fl High 35.1-43.9 [facility] Comment on above: Order Comment: Order Date: 06/09/25 Order Info: 0786-1 - CMP Order Info: 72364-9 - MG Order Info: 82469-0 - CRP Order Info: 3 - TSH Performed By: #### L 501.9520, L7000.5300, L501.6710, L501.5200, L500.4050 #### [facility] [address] [place], [address] WBC (Bld) [#/Vol] 6.4 10*3/uL Normal 4.4-11.0 [facility] Comment on above: Order Comment: Order Date: 06/09/25 Order Info: 0786-1 - CMP Order Info: 98996-4 - MG Order Info: 96650-0 - CRP Order Info: 3015-3 - TSH Performed By: #### L 501.9520, L7000.5300, L501.6710, L501.5200, L500.4050 #### [facility] [address] [place], [place], [address] Comprehensive Metabolic Prof ilon 08-14-2025 Albumin [Mass/Vol] 4.4 g/dL Normal 3.5-5.0 [facility] Comment on above: Order Comment: Order Date: 06/09/25 Order Info: 0786-1 - CMP Order Info: 02798-1 - MG Order Info: 87392-2 - CRP Order Info: 3016-3 - TSH Performed By: #### L 501.9520, L7000.5300, L501.6710, L501.5200, L500.4050 #### [facility] [address] [place], [address] Albumin/Globulin [Mass ratio] 1.6 {ratio} Normal 0.9-2.4 [facility] Comment on above: Order Comment: Order Date: 06/09/25 Order Info: 86-1 - CMP Order Info: 78272-1 - MG Order Info: 61332-1 - CRP Order Info: 3016-3 - TSH Performed By: #### L 501.9520, L7000.5300, L501.6710, L501.5200, L500.4050 #### [facility] [address] [place], [address] ALK PHOS 52 U/L Normal 35-104 [facility] Comment on above: Order Comment: Order Date: 06/09/25 Order Info: 0786-1 - CMP Order Info: 42069-3 - MG Order Info: 16181-2 - CRP Order Info: 3016-3 - TSH Performed By: #### L 501.9520, L7000.5300, L501.6710, L501.5200, L500.4050 #### [facility] [address] [place], [address] ALT [Catalytic activity/Vol] 9 U/L Normal <=34 [facility] Comment on above: Order Comment: Order Date: 06/09/25 Order Info: 0786-1 - CMP Order Info: 47964-7 - MG Order Info: 00523-4 - CRP Order Info: 3015-3 - TSH Performed By: #### L 501.9520, L7000.5300, L501.6710, L501.5200, L500.4050 #### [facility] [address] [place], [address] AST [Catalytic activity/Vol] 12 U/L Normal <=31 [facility] Comment on above: Order Comment: Order Date: 06/09/25 Order Info: 0786-1 - CMP Order Info: 75047-7 - MG Order Info: 51948-1 - CRP Order Info: 3 - TSH Performed By: #### L 501.9520, L7000.5300, L501.6710, L501.5200, L500.4050 #### [facility] [address] [place], [place], [address] Bilirubin [Mass/Vol] 0.41 mg/dL Normal 0.00-1.30 [facility] Comment on above: Order Comment: Order Date: 06/09/25 Order Info: 86-1 - CMP Order Info: 54071-1 - MG Order Info: 00259-1 - CRP Order Info: 3 - TSH Performed By: #### L 501.9520, L7000.5300, L501.6710, L501.5200, L500.4050 #### [facility] [address] [place], [address] BUN/CRE 12.7 RATIO Normal 10-20 [facility] Comment on above: Order Comment: Order Date: 06/09/25 Order Info: 0786-1 - CMP Order Info: 88002-5 - MG Order Info: 39075-6 - CRP Order Info: 3015-3 - TSH Performed By: #### L 501.9520, L7000.5300, L501.6710, L501.5200, L500.4050 #### [facility] [address] [place], [address] Calcium [Mass/Vol] 9.1 mg/dL Normal 7.6-11.0 [facility] Comment on above: Order Comment: Order Date: 06/09/25 Order Info: 0786-1 - CMP Order Info: 54517-6 - MG Order Info: 35925-5 - CRP Order Info: 3016-3 - TSH Performed By: #### L 501.9520, L7000.5300, L501.6710, L501.5200, L500.4050 #### [facility] [address] [place], [address] Chloride [Moles/Vol] 106 mmol/L Normal 98-108 [facility] Comment on above: Order Comment: Order Date: 06/09/25 Order Info: 785-1 - CMP Order Info: 49499-2 - MG Order Info: 85858-9 - CRP Order Info: 3016-3 - TSH Performed By: #### L 501.9520, L7000.5300, L501.6710, L501.5200, L500.4050 #### [facility] [address] [place], [address] CO2 [Moles/Vol] 21.1 mmol/L Normal 21.0-32.0 [facility] Comment on above: Order Comment: Order Date: 06/09/25 Order Info: 07-1 - CMP Order Info: 40210-0 - MG Order Info: 53411-9 - CRP Order Info: 3016-3 - TSH Performed By: #### L 501.9520, L7000.5300, L501.6710, L501.5200, L500.4050 #### [facility] [address] [place], [address] Creatinine [Mass/Vol] 0.73 mg/dL Normal 0.70-1.20 [facility] Comment on above: Order Comment: Order Date: 06/09/25 Order Info: 0786-1 - CMP Order Info: 01511-5 - MG Order Info: 17458-9 - CRP Order Info: 3016-01 - TSH Performed By: #### L 501.9520, L7000.5300, L501.6710, L501.5200, L500.4050 #### [facility] [address] [place], [address] GAP 12 Normal 5-15 [facility] Comment on above: Order Comment: Order Date: 06/09/25 Order Info: 0786-1 - CMP Order Info: 55307-5 - MG Order Info: 58737-4 - CRP Order Info: 3016-01 - TSH Performed By: #### L 501.9520, L7000.5300, L501.6710, L501.5200, L500.4050 #### [facility] [address] [place], [place], [address] GFR/1.73 sq M.predicted among non-blacks MDRD (S/P/Bld) [Vol rate/Area] 106 mL/min/{1.73_m2} Normal >60 [facility] Comment on above: Order Comment: Order Date: 06/09/25 Order Info: 0786-1 - CMP Order Info: 50877-3 - MG Order Info: 35365-3 - CRP Order Info: 3016-01 - TSH Result Comment: mL/m in/1.73m2 CKD-EPI Creatinine Equation (2020) Performed By: #### L 501.9520, L7000.5300, L501.6710, L501.5200, L500.4050 #### [facility] [address] [place], [address] Globulin (S) [Mass/Vol] 2.8 g/dL Normal 2.2-4.2 [facility] Comment on above: Order Comment: Order Date: 06/09/25 Order Info: 0786-1 - CMP Order Info: 28745-1 - MG Order Info: 39998-7 - CRP Order Info: 3016-01 - TSH Performed By: #### L 501.9520, L7000.5300, L501.6710, L501.5200, L500.4050 #### [facility] [address] [place], [address] Glucose [Mass/Vol] 81 mg/dL Normal 70-99 [facility] Comment on above: Order Comment: Order Date: 06/09/25 Order Info: 0786-1 - CMP Order Info: 38527-4 - MG Order Info: 61855-0 - CRP Order Info: 3016-3 - TSH Performed By: #### L 501.9520, L7000.5300, L501.6710, L501.5200, L500.4050 #### [facility] [address] [place], [address] Potassium [Moles/Vol] 4.1 mmol/L Normal 3.3-5.1 [facility] Comment on above: Order Comment: Order Date: 06/09/25 Order Info: 0786-1 - CMP Order Info: 85353-5 - MG Order Info: 87678-6 - CRP Order Info: 3016-3 - TSH Performed By: #### L 501.9520, L7000.5300, L501.6710, L501.5200, L500.4050 #### [facility] [address] [place], [address] Sodium [Moles/Vol] 139 mmol/L Normal 133-145 [facility] Comment on above: Order Comment: Order Date: 06/09/25 Order Info: 0786-1 - CMP Order Info: 72248-9 - MG Order Info: 48390-3 - CRP Order Info: 3016-3 - TSH Performed By: #### L 501.9520, L7000.5300, L501.6710, L501.5200, L500.4050 #### [facility] [address] [place], [address] T PROT 7.2 g/dL Normal 5.9-8.4 [facility] Comment on above: Order Comment: Order Date: 06/09/25 Order Info: 0786-1 - CMP Order Info: 19144-4 - MG Order Info: 36429-4 - CRP Order Info: 3015-3 - TSH Performed By: #### L 501.9520, L7000.5300, L501.6710, L501.5200, L500.4050 #### [facility] [address] [place], [address] Urea nitrogen [Mass/Vol] 9 mg/dL Normal 4-19 [facility] Comment on above: Order Comment: Order Date: 06/09/25 Order Info: 0786-1 - CMP Order Info: 91231-1 - MG Order Info: 95495-4 - CRP Order Info: 3 - TSH Performed By: #### L 501.9520, L7000.5300, L501.6710, L501.5200, L500.4050 #### [facility] [address] [place], [address] Lipid Profileon 08-14-2025 CHOL:HDL 3.45 Normal [facility] Comment on above: Order Comment: Order Date: 06/09/25 Order Info: 0786-1 - CMP Order Info: 42464-8 - MG Order Info: 04038-0 - CRP Order Info: 3 - TSH Performed By: #### L 501.9520, L7000.5300, L501.6710, L501.5200, L500.4050 #### [facility] [address] [place], [address] Cholesterol [Mass/Vol] 173 mg/dL Normal <=200 [facility] Comment on above: Order Comment: Order Date: 06/09/25 Order Info: 0786-1 - CMP Order Info: 43432-6 - MG Order Info: 39222-4 - CRP Order Info: 3015-3 - TSH Result Comment: Chol esterol level, Desirable <200 mg/dL Borderline high cholesterol 200-239 mg/dL High cholesterol >=240 mg/dL Recommendations of the NCEP Adult Treatment Panel for the following risk-cutoff thresholds for the [place] population. Performed By: #### L 501.9520, L7000.5300, L501.6710, L501.5200, L500.4050 #### [facility] [address] [place], [address] Cholesterol in HDL [Mass/Vol] 50 mg/dL Normal [facility] Comment on above: Order Comment: Order Date: 06/09/25 Order Info: 0786-1 - CMP Order Info: 09187-6 - MG Order Info: 96729-6 - CRP Order Info: 3016-3 - TSH Result Comment: Berna onal Cholesterol Education Program (NCEP) guidelines: <40 mg/dL: Low HDL-cholesterol (major risk factor for CHD) >= 60 mg/dL: High HDL-cholesterol (negative risk factor for CHD) HDL-cholesterol is affected by a number of factors, e.g. smoking, exercise, hormones, sex and age. Performed By: #### L 501.9520, L7000.5300, L501.6710, L501.5200, L500.4050 #### [facility] [address] [place], [address] Cholesterol in LDL [Mass/Vol] 101 mg/dL Normal [facility] Comment on above: Order Comment: Order Date: 06/09/25 Order Info: 0786-1 - CMP Order Info: 18209-7 - MG Order Info: 41484-5 - CRP Order Info: 301-3 - TSH Result Comment: Bord wjvbkn=084-998 mg/dL Higher Gyou=721 mg/dL or greater Friedwald Equation for LDL-C Performed By: #### L 501.9520, L7000.5300, L501.6710, L501.5200, L500.4050 #### [facility] [address] [place], [address] Cholesterol in VLDL [Mass/Vol] 22 mg/dL Normal 5-40 [facility] Comment on above: Order Comment: Order Date: 06/09/25 Order Info: 0786-1 - CMP Order Info: 83301-0 - MG Order Info: 70063-4 - CRP Order Info: 3 - TSH Performed By: #### L 501.9520, L7000.5300, L501.6710, L501.5200, L500.4050 #### [facility] [address] [place], [address] Triglyceride [Mass/Vol] 112 mg/dL Normal [facility] Comment on above: Order Comment: Order Date: 06/09/25 Order Info: 785-1 - CMP Order Info: 50036-0 - MG Order Info: - CRP Order Info: 3 - TSH Result Comment: The drugs N-Acetylcysteine and Metamizole may falsely depress this assay. Normal range: <150 mg/dL Borderline High: 150-199 mg/dL High: 200-499 mg/dL Very High: >500 mg/dL Performed By: #### L 501.9520, L7000.5300, L501.6710, L501.5200, L500.4050 #### [facility] [address] [place], [address] Magnesiumon 08-14-2025 Magnesium [Mass/Vol] 2.1 mg/dL Normal 1.5-2.2 [facility] Comment on above: Order Comment: Order Date: 06/09/25 Order Info: 0786-1 - CMP Order Info: 27270-0 - MG Order Info: - CRP Order Info: 3 - TSH Performed By: #### L 501.9520, L7000.5300, L501.6710, L501.5200, L500.4050 #### [facility] [address] [place], [address] Thyroid Stim Hormone (TSH)on 08-14-2025 TSH 3.650 uIU/mL Normal 0.300-4.200 [facility] Comment on above: Order Comment: Order Date: 06/09/25 Order Info: 07-1 - CMP Order Info: 31808-5 - MG Order Info: 28896-2 - CRP Order Info: 3 - TSH Performed By: #### L 501.9520, L7000.5300, L501.6710, L501.5200, L500.4050 #### [facility] [address] [place], [address] Urinalysis, Completeon 08-14 BACTERIA RARE Normal None Seen [facility] Comment on above: Order Comment: Order Date: 06/09/25 Order Info: 0786-1 - CMP Order Info: 61170-1 - MG Order Info: 60396-7 - CRP Order Info: 3 - TSH Performed By: #### L 501.9520, L7000.5300, L501.6710, L501.5200, L500.4050 #### [facility] [address] [place], [address] EPI,SQUAMOUS 0-5 SEEN Normal 5-10 [facility] Comment on above: Order Comment: Order Date: 06/09/25 Order Info: 0786-1 - CMP Order Info: 56226-9 - MG Order Info: 38812-4 - CRP Order Info: 3016-01 - TSH Performed By: #### L 501.9520, L7000.5300, L501.6710, L501.5200, L500.4050 #### [facility] [address] [place], [address] Mucus Ql (Urine sed) 0 SEEN Normal [facility] Comment on above: Order Comment: Order Date: 06/09/25 Order Info: 0786-1 - CMP Order Info: 23666-9 - MG Order Info: 17380-1 - CRP Order Info: 3015-3 - TSH Performed By: #### L 501.9520, L7000.5300, L501.6710, L501.5200, L500.4050 #### [facility] [address] [place], [address] RBC 0 SEEN Normal 0-5 [facility] Comment on above: Order Comment: Order Date: 06/09/25 Order Info: 0786-1 - CMP Order Info: 23547-6 - MG Order Info: 80404-3 - CRP Order Info: 3016-3 - TSH Performed By: #### L 501.9520, L7000.5300, L501.6710, L501.5200, L500.4050 #### [facility] [address] [place], [address] WBC 0 SEEN Normal 0-5 [facility] Comment on above: Order Comment: Order Date: 06/09/25 Order Info: 0786-1 - CMP Order Info: 50037-3 - MG Order Info: 07819-0 - CRP Order Info: 3016-3 - TSH Performed By: #### L 501.9520, L7000.5300, L501.6710, L501.5200, L500.4050 #### [facility] [address] [place], [address] Colonoscopy Reporton 025 Colonoscopy Report [facility] Medical Records Department [address] [place] [address] Colonoscopy Report MR#: [id number] Acct: [id number] Name: MALISSA ELLIOTT BRIANNA Rep #: [id number] : 1985 40 From: Jessica Qureshi MD PCP: Dr. Marco A Marie MD Status:[facility] Patient Name: Malissa Elliott Procedure Date: 07/15/2025 9:46 AM Date of : 1985 Age: 40 Procedure: Colonoscopy Indications: Abdominal pain in the left lower quadrant, Abdominal pain in the left upper quadrant, Abdominal pain in the right lower quadrant, Chronic diarrhea, Weight loss Providers: Jessica Qureshi MD Medicines: Monitored Anesthesia Care Patient Profile: This is a 40 year old female. Last Colonoscopy: none. The patient's first colonoscopy is today. Complications: No immediate complications. Procedure: Pre-Anesthesia Assessment: - Prior to the procedure, a History and Physical was performed, and patient medications and allergies were reviewed. The patient's tolerance of previous anesthesia was also reviewed. The risks and benefits of the procedure and the sedation options and risks were discussed with the patient. All questions were answered, and informed consent was obtained. Prior Anticoagulants: The patient has taken no anticoagulant or antiplatelet agents. ASA Grade Assessment: Per anesthesia. After reviewing the risks and benefits, the patient was deemed in satisfactory condition to undergo the procedure. After I obtained informed consent, the scope was passed under direct vision. Throughout the procedure, the patient's blood pressure, pulse, and oxygen saturations were monitored continuously. The pediatric colonoscope was introduced through the anus and advanced to the cecum, identified by the appendiceal orifice, ileocecal valve and palpation. The colonoscopy was performed without difficulty. The patient tolerated the procedure well. The quality of the bowel preparation was good. Scope In: 9:47:10 AM Scope Withdrawal Time 0 hours 9 minutes 33 seconds Scope Out: 10:02:37 AM Total Procedure Duration Time 0 hours 15 minutes 27 seconds Findings: The perianal and digital rectal examinations were normal. A few small-mouthed diverticula were found in the sigmoid colon. Two biopsies were obtained with cold forceps for histology randomly. The exam was otherwise without abnormality on direct and retroflexion views. Impression: - Diverticulosis in the sigmoid colon. - The examination was otherwise normal on direct and retroflexion views. - Two biopsies were obtained. Recommendation: - Discharge patient to home. - Resume previous diet. - Continue present medications. - Await pathology results. - Repeat colonoscopy in 10 years for screening purposes. Procedure Code(s): --- Professional --- 42630, Colonoscopy, flexible; with biopsy, single or multiple Diagnosis Code(s): --- Professional --- R10.32, Left lower quadrant pain R10.12, Left upper quadrant pain R10.31, Right lower quadrant pain K52.9, Noninfective gastroenteritis and colitis, unspecified R63.4, Abnormal weight loss K57.30, Diverticulosis of large intestine without perforation or abscess without bleeding CPT copyright 2021 [employer]. All rights reserved. The codes documented in this report are preliminary and upon rotational moulding operator review may be revised to meet current compliance requirements. MD Jessica Hahn MD 07/15/2025 10:11:39 AM This report has been signed electronically. Number of Addenda: 0 Note Initiated On: 07/15/2025 9:46 AM 07/15/25 1011 Date Jessica Qureshi MD Cosigner Signature: Date (if indicated) CC: Dr. Marco A Marie MD; Dr. Jessica Qureshi MD Date Dictated: 07/15/25945 Date Transcribed: Exposure Machine Operator: TR Signed Normal [facility] EGD Reporton 07-15-2025 EGD Report [facility] Medical Records Department [address] [place] [address] EGD Report MR#: [id number] Acct: [id number] Name: MALISSA ELLIOTT BRIANNA Rep #: [id number] : 1985 40 From: Jessica Qureshi MD PCP: Dr. Marco A Marie MD Status:[facility] Patient Name: Malissa Elliott Procedure Date: 07/15/2025 9:33 AM Date of : 1985 Age: 40 Procedure: Upper GI endoscopy Indications: Abdominal pain in the left upper quadrant, Weight loss Providers: Jessica Qureshi MD Medicines: Monitored Anesthesia Care Patient Profile: This is a 40 year old female. Complications: No immediate complications. Procedure: Pre-Anesthesia Assessment: - Prior to the procedure, a History and Physical was performed, and patient medications and allergies were reviewed. The patient's tolerance of previous anesthesia was also reviewed. The risks and benefits of the procedure and the sedation options and risks were discussed with the patient. All questions were answered, and informed consent was obtained. Prior Anticoagulants: The patient has taken no anticoagulant or antiplatelet agents. ASA Grade Assessment: Per anesthesia. After reviewing the risks and benefits, the patient was deemed in satisfactory condition to undergo the procedure. After obtaining informed consent, the endoscope was passed under direct vision. Throughout the procedure, the patient's blood pressure, pulse, and oxygen saturations were monitored continuously. The pediatric colonoscope was introduced through the mouth, and advanced to the second part of duodenum. The upper GI endoscopy was accomplished without difficulty. The patient tolerated the procedure well. Scope In: 9:41:38 AM Scope Out: 9:46:32 AM Total Procedure Duration Time 0 hours 4 minutes 54 seconds Findings: The Z-line was variable and was found 40 cm from the incisors. The examined duodenum was normal. Mildly erythematous mucosa without bleeding was found in the gastric antrum. Biopsies were taken with a cold forceps for histology. Biopsies were taken with a cold forceps for Helicobacter pylori cultures. The cardia and gastric fundus were normal on retroflexion. No gross lesions were noted in the entire esophagus. Impression: - Z-line variable, 40 cm from the incisors. - Normal examined duodenum. - Erythematous mucosa in the antrum. Biopsied. - No gross lesions in the entire esophagus. Recommendation: - Await pathology results. - Discharge patient to home. - Resume previous diet. - Use Prilosec (omeprazole) 40 mg PO daily. - Use Pepcid (famotidine) 20 mg PO daily for 2-3 days then PRN only. - Continue present medications. Procedure Code(s): --- Professional --- 48008, Esophagogastroduodeno scopy, flexible, transoral; with biopsy, single or multiple Diagnosis Code(s): --- Professional --- K22.89, Other specified disease of esophagus K31.89, Other diseases of stomach and duodenum R10.12, Left upper quadrant pain R63.4, Abnormal weight loss CPT copyright 2021 [employer]. All rights reserved. The codes documented in this report are preliminary and upon rotational moulding operator review may be revised to meet current compliance requirements. MD Jessica Hahn MD 07/15/2025 10:08:46 AM This report has been signed electronically. Number of Addenda: 0 Note Initiated On: 07/15/2025 9:33 AM 07/15/25 1009 Date Jessica Qureshi MD Cosigner Signature: Date (if indicated) CC: Dr. Marco A Marie MD; Dr. Jessica Qureshi MD Date Dictated: 07/15/25932 Date Transcribed: Exposure Machine Operator: TR Signed Normal [facility] Immunohistochemical Stainson 07-15-2025 Immunohistochemical Stains -------- Patient Age/Sex Location Account Attending Physician -------- MALISSA ELLIOTT 40/F EN [id number] Dr. Jessica Qureshi MD -------- Specimen: [id number] Received: 07/15/25 Status: CADEN Mihir Num: [id number] Spec Type: COLON BX Subm Dr: Dr. Jessica Qureshi MD HEADER OPERATION: Colonoscopy with biopsies, EGD with biopsy PRE-OP DIAGNOSIS: Abdominal pain weight loss, diarrhea TISSUE SUBMITTED: A- Antrum biopsy, B- Random colon biopsy -------- MICROSCOPIC DIAGNOSIS A. Gastric antrum, biopsy: - features of reactive gastropathy. - IHC negative for H. pylori organisms. B. Colon, random, biopsy: - no specific pathologic change. MICROSCOPIC DESCRIPTION Slides are reviewed. All matched controls reacted appropriately. These tests were developed and their performance characteristics determined by [facility] [facility]. They may not have been cleared or approved by the U.S. Food and Drug Administration. The FDA hasdetermined that such clearance or approval is not necessary. The above immunohistochemical/d ualISH markers are reviewed by the Pathologist. GROSS DESCRIPTION A. Received in fixative is one container labeled with the patient's name and designated Antrum biopsy. The specimen consists of one irregular fragment of light medina soft tissue that measures 0.6 cm. The specimen is totally submitted in one cassette. B. Received in fixative is one container labeled with the patient's name and designated Random colon biopsy. The specimen consists of two irregular fragments of light medina soft tissue that measure 0.3 and 1 cm. The specimen is totally submitted in one cassette. DE 07/15/2025 CPT:01354y3,82908 -------- Patient Age/Sex Location Account Attending Physician -------- MALISSA ELLIOTT BRIANNA 40/F EN [id number] Dr. Jessica Qureshi MD -------- Signed (signature on file) Dr. Robina Nieves MD 07/21/25 1105 -------- Normal [facility] Comment on above: Performed By: #### L 350.1000 #### [facility] Laboratory [address] [facility] [place], [place], [address] MR/OP.[facility] 07-[facility] Medical Records Department [address] [place] [address] Provation Physician Letter MR#: [id number] Acct: [id number] Name: MALISSA ELLIOTT BRIANNA Rep #: [id number] : 1985 40 From: Jessica Qureshi MD PCP: Dr. Marco A Marie MD Status:REG [facility] 07/15/2025 Marco A Marie [address] [place] [address] Re : Colonoscopy procedure for Malissa Elliott Dear Dr. Marie This procedure was performed on Tuesday, July 15, 2025. My impressions and recommendations are as follows: Impressions : - Diverticulosis in the sigmoid colon. - The examination was otherwise normal on direct and retroflexion views. - Two biopsies were obtained. Recommendations : - Discharge patient to home. - Resume previous diet. - Continue present medications. - Await pathology results. - Repeat colonoscopy in 10 years for screening purposes. My findings are described in the full procedure note, which is enclosed. If I can be of further assistance, please feel free to contact me at Doctor phone number(s): , Work: . Sincerely, MD Jessica Hahn MD 07/15/2025 10:11:39 AM This report has been signed electronically. 07/15/25 1011 Date Jessica Qureshi MD Cosigner Signature: Date (if indicated) CC: Dr. Marco A Marie MD; Dr. Jessica Qureshi MD Date Dictated: 07/15/25945 Date Transcribed: Exposure Machine Operator: HENNA Alston [facility] MR/OP.[facility] Medical Records Department [address] [place] [address] Provation Physician Letter MR#: [id number] Acct: [id number] Name: MALISSA ELLIOTT BRIANNA Rep #: [id number] : 1985 40 From: Jessica Qureshi MD PCP: Dr. Marco A Marie MD Status:REG [facility] 07/15/2025 Marco A Marie [address] [facility] [address] [place] [address] Re : Upper GI endoscopy procedure for Malissa Elliott Dear Dr. Marie This procedure was performed on Tuesday, July 15, 2025. My impressions and recommendations are as follows: Impressions : - Z-line variable, 40 cm from the incisors. - Normal examined duodenum. - Erythematous mucosa in the antrum. Biopsied. - No gross lesions in the entire esophagus. Recommendations : - Await pathology results. - Discharge patient to home. - Resume previous diet. - Use Prilosec (omeprazole) 40 mg PO daily. - Use Pepcid (famotidine) 20 mg PO daily for 2-3 days then PRN only. - Continue present medications. My findings are described in the full procedure note, which is enclosed. If I can be of further assistance, please feel free to contact me at Doctor phone number(s): , Work: . Sincerely, MD Jessica Hahn MD 07/15/2025 10:08:46 AM This report has been signed electronically. 07/15/25 1009 Date Jessica Qureshi MD Cosigner Signature: Date (if indicated) CC: Dr. Marco A Marie MD; Dr. Jessica Qureshi MD Date Dictated: 07/15/25932 Date Transcribed: Exposure Machine Operator: TR Signed [facility] MR/POSTOP.[facility] 07-15-2025 MR/POSTOP.[facility] Medical Records Department [address] [place] [address] Anesthesia Postop Eval I 07/15/25 1011 MR#: [id number] Acct: [id number] Name: MALISSA ELLIOTT BRIANNA Rep #: [id number] : 1985 40 From: Jamel Silva PCP: Dr. Marco A Marie MD Status:REG SDC Y Race: C Location: [place] [address] Anesthesia: Postop Eval I Current Vital Signs Temperature: 97.8 F Pulse Rate: 86 Blood Pressure: 118/89 Respiratory Rate: 18 Pulse Ox: 99 Oxygen Delivery Method: Room Air Assessment Airway patent: Yes Spontaneous unlabored respirations: Yes Mental status: Asleep nausea: No Vomiting: No Anesthesia Complication: No Fluid Hydration Crystalloid volume administer (ml): 600 Total IV fluid infused: 600 Progress Note Anesthesia document: Postop Eval 1 completed: Yes 07/15/25 1012 Date Jamel Andersongiljosafat Signature: Date CC: Signed Normal [facility] MR/LHBXUEYI8ha 07-15-2025 [facility] Medical Records Department [address] [facility] [place] [address] Anesthesia Postop Eval II 07/15/25 1037 MR#: [id number] Acct: [id number] Name: MALISSA ELLIOTT BRIANNA Rep #: [id number] : 1985 40 From: Tremaine Do MD PCP: Dr. Marco A Marie MD Status:REG SDC Y Race: C Location: [place] [address] Anesthesia Postop Eval I Sum Postop Eval Completion status Anesthesia document: Postop Eval 1 completed: Yes Anesthesia Postop Eval I Summary Anesthesia Postop Eval I Summary: Anesthesia Postop Eval I: Assessment Summary Airway patent Yes 07/15/25 10:12 [email or web address] Spontaneous unlabored Yes 07/15/25 10:12 [email or web address] respirations Mental status Asleep 07/15/25 10:12 [email or web address] nausea No 07/15/25 10:12 [email or web address] Vomiting No 07/15/25 10:12 [email or web address] Anesthesia Postop Eval I: Fluid Summary Crystalloid volume administer 600 07/15/25 10:12 [email or web address] (ml) Colloids volume administered ( ml) Blood Product volume administered (ml) Total IV fluid infused 600 07/15/25 10:12 [email or web address] Anesthesia Postop Eval I: Summary Notes Anesthesia Complication No 07/15/25 10:12 [email or web address] Anesthesia Complication Comment: Post-operative progress note Anesthesia: Postop Eval II Evaluation Mental status: Awake and Calm Pain Level: 1 nausea: No Vomiting: No Complications Anesthesia Complication: No 07/15/25 1037 Date Tremaine Do MD Cosigner Signature: Date CC: Signed Normal [facility] MR/PATSRIDEVIon 07-13-2025 MR/PAT.[facility] Medical Records Department [address] [facility] [address] PAT - Anesthesia 07/13/25 1637 MR#: [id number] Acct: [id number] Name: MALISSA ELLIOTT BRIANNA Rep #: [id number] : 1985 40 From: Tremaine Do MD PCP: Dr. 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.] Tobacco Use History Tobacco Use History - sales and service officer: Tobacco Use History - sales and service officer Tobacco Use Smoking Status Former smoker 07/13/25 16:27 Hx Tobacco Use No 07/13/25 16:27 Years Smoking Packs Smoked per Day Smoking Cessation Date was Yes - quit smoking within 15 07/13/25 16:27 within the last 15 years years Hx Smoking Cessation Date 05/05/22 07/13/25 16:27 Hx Smoking Cessation No 07/13/25 16:27 Counseling Hematologic Medial History Hematologic Hx - sales and service officer: 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 confused, unrespo /Reproductio n History /Reproductiv e History - sales and service officer: /Reproductiv e Hx- sales and service officer Hx Now No 07/13/25 16:27 Gestational Age (in weeks): EDC: Hx Hx Para Hx Section SAB No 07/13/25 16:27 [facility] Medical History (Updated 07/13/25 @ 16:31 by [...] ory omeprazole (more content not included)... Normal [facility] Surgery Visit Reporton 07-13 Surgery Visit Report [facility] [address] [place] [address] OFFICE VISIT Date of Service: 07/13/25 MR#: [id number] Acct: [id number] Name: MALISSA ELLIOTT BRIANNA Rep #: [id number] : 1985 Provider: Dr. Jessica dang MD Age/Sex: 40/F Location: [facility] Status: Signed Intake Vital Signs 07/03/25 12:54 [...] abnormal s (more content not included)... Normal [facility] Abdomen/Pelvis WITH Contrast on 07-03-2025 Abdomen/Pelvis WITH Contrast [facility] Imaging Services [address] [place], [place] [id number] Abdomen/Pelvis WITH Contrast MR#: [id number] Acct: [id number] Name: MALISSA ELLIOTT BRIANNA Rep #: [id number] : 1985 F 40 From: Winston ly MD PCP: Dr. Marco A Marie MD Status: REG CLI Study: Abdomen/Pelvis WITH Contrast Date of Exam: Exam# [id number] Ordering Dr: Maico Petty MD PROCEDURE: ABDOMEN/PELVIS [...] seen in the rectosigmoid colon. Reading Location: [facility] CC: Dr. Marco A Marie MD; Dr. Maico Petty MD Exposure Machine Operator: Signed Normal [facility] Anion gap in Serum or Plasma Ordered By: Maico Petty on 06-29-2025 Anion gap [Moles/Vol] 13 mmol/L 5-15 [facility] BUN/creatinine ratioOrdered By: Maico Petty on 06-29-2025 Urea nitrogen/Creatinine [Mass ratio] 10.7 mg/mg 10-20 [facility] Bilirubin, totalOrdered By: Maico Petty on 06-29-2025 Bilirubin [Mass/Vol] 0.24 mg/dL 0.00-1.30 [facility] CBC-Complete Blood Cnt No Di ffon 06-29-2025 Erythrocyte distribution width (RBC) [Ratio] 14.1 % Normal 11.6-14.6 [facility] Comment on above: Order Comment: Order Date: 06/09/25 Order Info: 0786-1 - CMP Order Info: 02851-1 - MG Order Info: 18993-8 - CRP Order Info: 3015-3 - TSH Performed By: #### L 501.9520, L7000.5300, L501.6710, L501.5200, L500.4050 #### [facility] Laboratory [address] [place], [place], [address] Hematocrit (Bld) [Volume fraction] 41.0 % Normal 37-47 [facility] Comment on above: Order Comment: Order Date: 06/09/25 Order Info: 0786-1 - CMP Order Info: 35083-4 - MG Order Info: 93722-1 - CRP Order Info: 3016-3 - TSH Performed By: #### L 501.9520, L7000.5300, L501.6710, L501.5200, L500.4050 #### [facility] [address] [place], [place], [address] Hemoglobin (Bld) [Mass/Vol] 13.6 g/dL Normal 12.0-15.0 [facility] Comment on above: Order Comment: Order Date: 06/09/25 Order Info: 0786-1 - CMP Order Info: 92257-6 - MG Order Info: 32680-6 - CRP Order Info: 3016-3 - TSH Performed By: #### L 501.9520, L7000.5300, L501.6710, L501.5200, L500.4050 #### [facility] [address] [place], [address] MCH (RBC) [Entitic mass] 29.7 pg Normal 27.0-32.0 [facility] Comment on above: Order Comment: Order Date: 06/09/25 Order Info: 0786-1 - CMP Order Info: 36075-9 - MG Order Info: 64154-2 - CRP Order Info: 3016-3 - TSH Performed By: #### L 501.9520, L7000.5300, L501.6710, L501.5200, L500.4050 #### [facility] [address] [place], [address] MCHC (RBC) [Mass/Vol] 33.2 g/dL Normal 32-36 [facility] Comment on above: Order Comment: Order Date: 06/09/25 Order Info: 07-1 - CMP Order Info: 11609-2 - MG Order Info: 00596-1 - CRP Order Info: 3015-3 - TSH Performed By: #### L 501.9520, L7000.5300, L501.6710, L501.5200, L500.4050 #### [facility] [address] [place], [address] MCV (RBC) [Entitic vol] 89.5 fL Normal 81-99 [facility] Comment on above: Order Comment: Order Date: 06/09/25 Order Info: 0786-1 - CMP Order Info: 66116-2 - MG Order Info: 39711-6 - CRP Order Info: 3016-3 - TSH Performed By: #### L 501.9520, L7000.5300, L501.6710, L501.5200, L500.4050 #### [facility] [address] [place], [address] Platelet mean volume (Bld) [Entitic vol] 11.2 fL Normal 6.2-12.0 [facility] Comment on above: Order Comment: Order Date: 06/09/25 Order Info: 0786-1 - CMP Order Info: 54286-1 - MG Order Info: 60473-6 - CRP Order Info: 3016-3 - TSH Performed By: #### L 501.9520, L7000.5300, L501.6710, L501.5200, L500.4050 #### [facility] [address] [place], [address] Platelets (Bld) [#/Vol] 343 10*3/uL Normal 150-450 [facility] Comment on above: Order Comment: Order Date: 06/09/25 Order Info: 86-1 - CMP Order Info: 46159-1 - MG Order Info: 13769-3 - CRP Order Info: 301-3 - TSH Performed By: #### L 501.9520, L7000.5300, L501.6710, L501.5200, L500.4050 #### [facility] [address] [place], [address] RBC (Bld) [#/Vol] 4.58 10*6/uL Normal 4.2-5.4 [facility] Comment on above: Order Comment: Order Date: 06/09/25 Order Info: 0786-1 - CMP Order Info: 05172-4 - MG Order Info: 47614-3 - CRP Order Info: 3016-3 - TSH Performed By: #### L 501.9520, L7000.5300, L501.6710, L501.5200, L500.4050 #### [facility] [address] [place], [address] RDW SD 46.0 fl High 35.1-43.9 [facility] Comment on above: Order Comment: Order Date: 06/09/25 Order Info: 0786-1 - CMP Order Info: 54199-6 - MG Order Info: 46456-5 - CRP Order Info: 3016-3 - TSH Performed By: #### L 501.9520, L7000.5300, L501.6710, L501.5200, L500.4050 #### [facility] [address] [place], [address] WBC (Bld) [#/Vol] 6.0 10*3/uL Normal 4.4-11.0 [facility] Comment on above: Order Comment: Order Date: 06/09/25 Order Info: 07-1 - CMP Order Info: 30138-5 - MG Order Info: 12328-7 - CRP Order Info: 3016-3 - TSH Performed By: #### L 501.9520, L7000.5300, L501.6710, L501.5200, L500.4050 #### [facility] [address] [place], [address] Carbon dioxide, total [Moles /volume] in Central venous bloodOrdered By: Maico Petty on 06-29-2025 CO2 [Moles/Vol] 22.7 mmol/L 21.0-32.0 [facility] Chloride assayOrdered By: Michael Petty on 06-29-2025 Chloride [Moles/Vol] 104 mmol/L 98-108 [facility] Comprehensive Metabolic Prof ilon 06-29-2025 Albumin [Mass/Vol] 4.5 g/dL Normal 3.5-5.0 [facility] Comment on above: Order Comment: Order Date: 06/09/25 Order Info: 0786-1 - CMP Order Info: 15587-1 - MG Order Info: 50185-1 - CRP Order Info: 3016-3 - TSH Performed By: #### L 501.9520, L7000.5300, L501.6710, L501.5200, L500.4050 #### [facility] [address] [place], [address] Albumin/Globulin [Mass ratio] 1.8 {ratio} Normal 0.9-2.4 [facility] Comment on above: Order Comment: Order Date: 06/09/25 Order Info: 07-1 - CMP Order Info: 89579-0 - MG Order Info: 89931-9 - CRP Order Info: 3016-01 - TSH Performed By: #### L 501.9520, L7000.5300, L501.6710, L501.5200, L500.4050 #### [facility] [address] [place], [address] ALK PHOS 47 U/L Normal 35-104 [facility] Comment on above: Order Comment: Order Date: 06/09/25 Order Info: 86-1 - CMP Order Info: 38648-6 - MG Order Info: 66670-4 - CRP Order Info: 3016-01 - TSH Performed By: #### L 501.9520, L7000.5300, L501.6710, L501.5200, L500.4050 #### [facility] [address] [place], [place], [address] ALT [Catalytic activity/Vol] 8 U/L Normal <=34 [facility] Comment on above: Order Comment: Order Date: 06/09/25 Order Info: 785-1 - CMP Order Info: 54263-6 - MG Order Info: 64583-1 - CRP Order Info: 3016-01 - TSH Performed By: #### L 501.9520, L7000.5300, L501.6710, L501.5200, L500.4050 #### [facility] [address] [place], [address] AST [Catalytic activity/Vol] 13 U/L Normal <=31 [facility] Comment on above: Order Comment: Order Date: 06/09/25 Order Info: 86-1 - CMP Order Info: 01414-3 - MG Order Info: 19315-2 - CRP Order Info: 3016-01 - TSH Performed By: #### L 501.9520, L7000.5300, L501.6710, L501.5200, L500.4050 #### [facility] [address] [place], [address] Bilirubin [Mass/Vol] 0.24 mg/dL Normal 0.00-1.30 [facility] Comment on above: Order Comment: Order Date: 06/09/25 Order Info: 0786-1 - CMP Order Info: 46163-3 - MG Order Info: 69988-6 - CRP Order Info: 3015-3 - TSH Performed By: #### L 501.9520, L7000.5300, L501.6710, L501.5200, L500.4050 #### [facility] [address] [place], [address] BUN/CRE 10.7 RATIO Normal 10-20 [facility] Comment on above: Order Comment: Order Date: 06/09/25 Order Info: 785-1 - CMP Order Info: 24957-8 - MG Order Info: 89444-8 - CRP Order Info: 3015-3 - TSH Performed By: #### L 501.9520, L7000.5300, L501.6710, L501.5200, L500.4050 #### [facility] [address] [place], [address] Calcium [Mass/Vol] 9.1 mg/dL Normal 7.6-11.0 [facility] Comment on above: Order Comment: Order Date: 06/09/25 Order Info: 0786-1 - CMP Order Info: 35220-8 - MG Order Info: 39345-1 - CRP Order Info: 3 - TSH Performed By: #### L 501.9520, L7000.5300, L501.6710, L501.5200, L500.4050 #### [facility] [address] [place], [address] Chloride [Moles/Vol] 104 mmol/L Normal 98-108 [facility] Comment on above: Order Comment: Order Date: 06/09/25 Order Info: 0786-1 - CMP Order Info: 56968-6 - MG Order Info: 86989-1 - CRP Order Info: 3015-3 - TSH Performed By: #### L 501.9520, L7000.5300, L501.6710, L501.5200, L500.4050 #### [facility] [address] [place], [place], [address] CO2 [Moles/Vol] 22.7 mmol/L Normal 21.0-32.0 [facility] Comment on above: Order Comment: Order Date: 06/09/25 Order Info: 0786-1 - CMP Order Info: 87198-9 - MG Order Info: 07213-8 - CRP Order Info: 3016-3 - TSH Performed By: #### L 501.9520, L7000.5300, L501.6710, L501.5200, L500.4050 #### [facility] [address] [place], [place], [address] Creatinine [Mass/Vol] 0.75 mg/dL Normal 0.70-1.20 [facility] Comment on above: Order Comment: Order Date: 06/09/25 Order Info: 0786-1 - CMP Order Info: 37911-1 - MG Order Info: 40171-4 - CRP Order Info: 3016-3 - TSH Performed By: #### L 501.9520, L7000.5300, L501.6710, L501.5200, L500.4050 #### [facility] [address] [place], [place], [address] GAP 13 Normal 5-15 [facility] Comment on above: Order Comment: Order Date: 06/09/25 Order Info: 0786-1 - CMP Order Info: 88394-3 - MG Order Info: 73088-8 - CRP Order Info: 3016-3 - TSH Performed By: #### L 501.9520, L7000.5300, L501.6710, L501.5200, L500.4050 #### [facility] [address] [place], [place], [address] GFR/1.73 sq M.predicted among non-blacks MDRD (S/P/Bld) [Vol rate/Area] 103 mL/min/{1.73_m2} Normal >60 [facility] Comment on above: Order Comment: Order Date: 06/09/25 Order Info: 0786-1 - CMP Order Info: 78064-5 - MG Order Info: 86561-7 - CRP Order Info: 301-3 - TSH Result Comment: mL/m in/1.73m2 CKD-EPI Creatinine Equation (2020) Performed By: #### L 501.9520, L7000.5300, L501.6710, L501.5200, L500.4050 #### [facility] [address] [place], [address] Globulin (S) [Mass/Vol] 2.5 g/dL Normal 2.2-4.2 [facility] Comment on above: Order Comment: Order Date: 06/09/25 Order Info: 0786-1 - CMP Order Info: 53315-6 - MG Order Info: 09184-5 - CRP Order Info: 3015-3 - TSH Performed By: #### L 501.9520, L7000.5300, L501.6710, L501.5200, L500.4050 #### [facility] [address] [place], [address] Glucose [Mass/Vol] 78 mg/dL Normal 70-99 [facility] Comment on above: Order Comment: Order Date: 06/09/25 Order Info: 0786-1 - CMP Order Info: 26205-0 - MG Order Info: 52109-9 - CRP Order Info: 301-3 - TSH Performed By: #### L 501.9520, L7000.5300, L501.6710, L501.5200, L500.4050 #### [facility] [address] [place], [address] Potassium [Moles/Vol] 4.3 mmol/L Normal 3.3-5.1 [facility] Comment on above: Order Comment: Order Date: 06/09/25 Order Info: 0786-1 - CMP Order Info: 25318-6 - MG Order Info: 61788-0 - CRP Order Info: 3015-3 - TSH Performed By: #### L 501.9520, L7000.5300, L501.6710, L501.5200, L500.4050 #### [facility] [address] [place], [address] Sodium [Moles/Vol] 140 mmol/L Normal 133-145 [facility] Comment on above: Order Comment: Order Date: 06/09/25 Order Info: 0786-1 - CMP Order Info: 33072-7 - MG Order Info: 16635-6 - CRP Order Info: 3 - TSH Performed By: #### L 501.9520, L7000.5300, L501.6710, L501.5200, L500.4050 #### [facility] [address] [place], [address] T PROT 6.9 g/dL Normal 5.9-8.4 [facility] Comment on above: Order Comment: Order Date: 06/09/25 Order Info: 0786-1 - CMP Order Info: 92288-3 - MG Order Info: 65317-2 - CRP Order Info: 3016-01 - TSH Performed By: #### L 501.9520, L7000.5300, L501.6710, L501.5200, L500.4050 #### [facility] [address] [place], [address] Urea nitrogen [Mass/Vol] 8 mg/dL Normal 4-19 [facility] Comment on above: Order Comment: Order Date: 06/09/25 Order Info: 0786-1 - CMP Order Info: 91989-1 - MG Order Info: 16580-9 - CRP Order Info: 3 - TSH Performed By: #### L 501.9520, L7000.5300, L501.6710, L501.5200, L500.4050 #### [facility] [address] [place], [address] Erythrocyte distribution wid th ratioOrdered By: Maico Petty on 06-29-2025 Erythrocyte distribution width (RBC) [Ratio] 14.1 % 11.6-14.6 [facility] Erythrocyte distribution wid th standard deviationOrdered By: Maico Petty on 06-29-2025 Erythrocyte distribution width (RBC) [Ratio] 46.0 fl High 35.1-43.9 [facility] Glomerular filtration rate ( GFR) estimation/1.73 sq m using serum, plasma, or whole bOrdered By: Maico Petty on 06-29-2025 GFR/1.73 sq M.predicted among non-blacks MDRD (S/P/Bld) [Vol rate/Area] 103 mL/min/{1.73_m2} >60 [facility] Comment on above: mL/min/1.73m2 CKD-EP I Creatinine Equation (2020) Hematocrit Auto (Bld) [Volum e fraction]Ordered By: Maico Petty on 06-29-2025 Hematocrit (Bld) [Volume fraction] 41.0 % 37-47 [facility] Hemoglobin measurementOrdere d By: Maico Petty on 06-29-2025 Hemoglobin (Bld) [Mass/Vol] 13.6 g/dL 12.0-15.0 [facility] Laboratory - Chemistry and C hemistry - challengeOrdered By: Maico Petty on 06-29-2025 AST [Catalytic activity/Vol] 13 U/L <32 [facility] Lipaseon 06-29-2025 Lipase [Catalytic activity/Vol] 57 U/L Normal 13-75 [facility] Comment on above: Order Comment: Order Date: 06/09/25 Order Info: 0786-1 - CMP Order Info: 09842-8 - MG Order Info: 88475-6 - CRP Order Info: 3016-3 - TSH Result Comment: Greg anand note: LIPASE revised reference range effective 23. New Lipase methodology. Expected to produce lower values than the previous assay method. NEW Reference Range: 13 - 75 U/L Performed By: #### L 501.9520, L7000.5300, L501.6710, L501.5200, L500.4050 #### [facility] [address] [place], [address] Lipase measurementOrdered By : Maico Petty on 06-29-2025 Lipase [Catalytic activity/Vol] 57 U/L 13-75 [facility] Comment on above: Please note:LIPASE r evised reference range effective 23. New Lipase methodology. Expected to produce lower values than the previous assay method. NEW Reference Range: 13 - 75 U/L MCV (mean corpuscular volume ) determinationOrdered By: Maico Petty on 06-29-2025 MCV (RBC) [Entitic vol] 89.5 fL 81-99 [facility] Mean corpuscular hemoglobin (MCH) determinationOrdered By: Maico Petty on 06-29-2025 MCH (RBC) [Entitic mass] 29.7 pg 27.0-32.0 [facility] Mean corpuscular hemoglobin concentration (MCHC) determinationOrdered By: Maico Petty on 06-29-2025 MCHC (RBC) [Mass/Vol] 33.2 g/dL 32-36 [facility] Mean platelet volume determi nationOrdered By: Maico Petty on 06-29-2025 Platelet mean volume (Bld) [Entitic vol] 11.2 fL 6.2-12.0 [facility] Platelet countOrdered By: Michael Petty on 06-29-2025 Platelets (Bld) [#/Vol] 343 10*3/uL 150-450 [facility] Potassium measurement (mass/ volume)Ordered By: Maico Petty on 06-29-2025 Potassium (Unsp spec) [Mass/Vol] 4.3 mmol/L 3.3-5.1 [facility] ,Serum,hCG Quali.on 06-29-2025 HCG, SERUM QUAL Negative Normal [facility] Comment on above: Order Comment: Order Date: 06/09/25 Order Info: 0786-1 - CMP Order Info: [id number] - MG Order Info: [id number] - CRP Order Info: 3016-3 - TSH Performed By: #### L 501.9520, L7000.5300, L501.6710, L501.5200, L500.4050 #### [facility] [address] [place], [address] RBC Auto (Bld) [#/Vol]Ordere d By: Maico Petty on 06-29-2025 RBC (Bld) [#/Vol] 4.58 10*6/uL 4.2-5.4 [facility] Serum beta-hCG test, qualita tiveOrdered By: Maico Petty on 06-29-2025 Beta HCG ( test) Ql Negative [facility] Serum creatinine measurement (mass/volume)Ordered By: Maico Petty on 06-29-2025 Creatinine [Mass/Vol] 0.75 mg/dL 0.70-1.20 [facility] Serum globulin measurementOr dered By: Maico Petty on 06-29-2025 Globulin (S) [Mass/Vol] 2.5 g/dL 2.2-4.2 [facility] Serum glucose measurement (m ass/volume)Ordered By: Maico Petty on 06-29-2025 Glucose [Mass/Vol] 78 mg/dL 70-99 [facility] Serum or plasma alanine sun otransferase (ALT) measurementOrdered By: Maico Petty on 06-29-2025 ALT [Catalytic activity/Vol] 8 U/L <35 [facility] Serum or plasma albumin tori urement (mass/volume)Ordered By: Maico Petty on 06-29-2025 Albumin [Mass/Vol] 4.5 g/dL 3.5-5.0 [facility] Serum or plasma albumin/glob ulin mass ratioOrdered By: Maico Petty on 06-29-2025 Albumin/Globulin [Mass ratio] 1.8 {ratio} 0.9-2.4 [facility] Serum or plasma alkaline eloy sphatase measurementOrdered By: Maico Petty on 06-29-2025 ALP [Catalytic activity/Vol] 47 U/L 35-104 [facility] Serum or plasma calcium tori urement (mass/volume)Ordered By: Maico Petty on 06-29-2025 Calcium [Mass/Vol] 9.1 mg/dL 7.6-11.0 [facility] Serum or plasma urea nitroge n measurement (mass/volume)Ordered By: Maico Petty on 06-29-2025 Urea nitrogen [Mass/Vol] 8 mg/dL 4-19 [facility] Sodium levelOrdered By: Maico Petty on 06-29-2025 Sodium [Moles/Vol] 140 mmol/L 133-145 [facility] Total proteinOrdered By: Shantell Petty on 06-29-2025 Protein [Mass/Vol] 6.9 g/dL 5.9-8.4 [facility] White blood cell (WBC) count Ordered By: Maico Petty on 06-29-2025 WBC (Bld) [#/Vol] 6.0 10*3/uL 4.4-11.0 [facility] Lyme Screen W/Reflex WBon LYME SCREEN Ab Negative Normal Negative [facility] Comment on above: Order Comment: Order [...] to 14 days is recommended. Performed at: [facility] [id number] Leather Tooler: Kashmir Levy PhD, Phone: [phone] Performed By: #### L 501.9520, L7000.5300, L501.3410, L501.5200, L500.4050 #### [facility] [address] [place] [address], [address] Anion gap in Serum or Plasma Ordered By: Francis Miranda on 06-09-2025 Anion gap [Moles/Vol] 12 mmol/L 5-15 [facility] BUN/creatinine ratioOrdered By: Francis Miranda on 06-09-2025 Urea nitrogen/Creatinine [Mass ratio] 19.9 mg/mg 10-20 [facility] Bilirubin, totalOrdered By: Francis Miranda on 06-09-2025 Bilirubin [Mass/Vol] mg/dL 0.00-1.30 [facility] CRPon 06-09-2025 C-REACTIVE PROT < 3.00 Normal 0.0-3.0 [facility] Comment on above: Order Comment: Order Date: 06/09/25 Order Info: 0786-1 - CMP Order Info: [id number] - MG Order Info: [id number] - CRP Order Info: 3 - TSH Performed By: #### L 501.9520, L7000.5300, L501.6710, L501.5200, L500.4050 #### [facility] [address] [place], [place], [id number] Carbon dioxide, total [Moles /volume] in Central venous bloodOrdered By: Francis Miranda on 06-09-2025 CO2 [Moles/Vol] 23.0 mmol/L 21.0-32.0 [facility] Chloride assayOrdered By: Josafat Miranda on 06-09-2025 Chloride [Moles/Vol] 105 mmol/L 98-108 [facility] Comprehensive Metabolic Prof ilon 06-09-2025 Albumin [Mass/Vol] 4.4 g/dL Normal 3.5-5.0 [facility] Comment on above: Order Comment: Order Date: 06/09/25 Order Info: 785-1 - CMP Order Info: [id number] - MG Order Info: [id number] - CRP Order Info: 3016-01 - TSH Performed By: #### L 501.9520, L7000.5300, L501.6710, L501.5200, L500.4050 #### [facility] [address] [place], [place], [id number] Albumin/Globulin [Mass ratio] 1.7 {ratio} Normal 0.9-2.4 [facility] Comment on above: Order Comment: Order Date: 06/09/25 Order Info: 07-1 - CMP Order Info: [id number] - MG Order Info: [id number] - CRP Order Info: 3016-01 - TSH Performed By: #### L 501.9520, L7000.5300, L501.6710, L501.5200, L500.4050 #### [facility] [address] [place], [address] ALK PHOS 56 U/L Normal 35-104 [facility] Comment on above: Order Comment: Order Date: 06/09/25 Order Info: 0786-1 - CMP Order Info: [id number] - MG Order Info: [id number] - CRP Order Info: 3015-3 - TSH Performed By: #### L 501.9520, L7000.5300, L501.6710, L501.5200, L500.4050 #### [facility] [address] [place], [address] ALT [Catalytic activity/Vol] 8 U/L Normal <=34 [facility] Comment on above: Order Comment: Order Date: 06/09/25 Order Info: 86-1 - CMP Order Info: [id number] - MG Order Info: [id number] - CRP Order Info: 3 - TSH Performed By: #### L 501.9520, L7000.5300, L501.6710, L501.5200, L500.4050 #### [facility] [address] [place], [address] AST [Catalytic activity/Vol] 11 U/L Normal <=31 [facility] Comment on above: Order Comment: Order Date: 06/09/25 Order Info: 0786-1 - CMP Order Info: 18334-1 - MG Order Info: 89599-4 - CRP Order Info: 3015-3 - TSH Performed By: #### L 501.9520, L7000.5300, L501.6710, L501.5200, L500.4050 #### [facility] [address] [place], [address] BUN/CRE 19.9 RATIO Normal 10-20 [facility] Comment on above: Order Comment: Order Date: 06/09/25 Order Info: 0786-1 - CMP Order Info: 10010-8 - MG Order Info: 50931-2 - CRP Order Info: 3 - TSH Performed By: #### L 501.9520, L7000.5300, L501.6710, L501.5200, L500.4050 #### [facility] [address] [place], [address] Calcium [Mass/Vol] 8.9 mg/dL Normal 7.6-11.0 [facility] Comment on above: Order Comment: Order Date: 06/09/25 Order Info: 0786-1 - CMP Order Info: 30351-0 - MG Order Info: 11384-5 - CRP Order Info: 3015-3 - TSH Performed By: #### L 501.9520, L7000.5300, L501.6710, L501.5200, L500.4050 #### [facility] [address] [place], [address] Chloride [Moles/Vol] 105 mmol/L Normal 98-108 [facility] Comment on above: Order Comment: Order Date: 06/09/25 Order Info: 785-1 - CMP Order Info: [id number] - MG Order Info: 87813-4 - CRP Order Info: 3015-3 - TSH Performed By: #### L 501.9520, L7000.5300, L501.6710, L501.5200, L500.4050 #### [facility] [address] [place], [address] CO2 [Moles/Vol] 23.0 mmol/L Normal 21.0-32.0 [facility] Comment on above: Order Comment: Order Date: 06/09/25 Order Info: 0786-1 - CMP Order Info: [id number] - MG Order Info: 53496-8 - CRP Order Info: 301-3 - TSH Performed By: #### L 501.9520, L7000.5300, L501.6710, L501.5200, L500.4050 #### [facility] [address] [place], [address] Creatinine [Mass/Vol] 0.69 mg/dL Low 0.70-1.20 [facility] Comment on above: Order Comment: Order Date: 06/09/25 Order Info: 0786-1 - CMP Order Info: 93576-0 - MG Order Info: 56636-9 - CRP Order Info: 3015-3 - TSH Performed By: #### L 501.9520, L7000.5300, L501.6710, L501.5200, L500.4050 #### [facility] [address] [place], [address] GAP 12 Normal 5-15 [facility] Comment on above: Order Comment: Order Date: 06/09/25 Order Info: 86-1 - CMP Order Info: [id number] - MG Order Info: 36733-9 - CRP Order Info: 3 - TSH Performed By: #### L 501.9520, L7000.5300, L501.6710, L501.5200, L500.4050 #### [facility] [address] [place], [place], [address] GFR/1.73 sq M.predicted among non-blacks MDRD (S/P/Bld) [Vol rate/Area] 112 mL/min/{1.73_m2} Normal >60 [facility] Comment on above: Order Comment: Order Date: 06/09/25 Order Info: 0786-1 - CMP Order Info: [id number] - MG Order Info: 36179-2 - CRP Order Info: 3 - TSH Result Comment: mL/m in/1.73m2 CKD-EPI Creatinine Equation (2020) Performed By: #### L 501.9520, L7000.5300, L501.6710, L501.5200, L500.4050 #### [facility] [address] [place], [address] Globulin (S) [Mass/Vol] 2.6 g/dL Normal 2.2-4.2 [facility] Comment on above: Order Comment: Order Date: 06/09/25 Order Info: 0786-1 - CMP Order Info: [id number] - MG Order Info: [id number] - CRP Order Info: 3015-3 - TSH Performed By: #### L 501.9520, L7000.5300, L501.6710, L501.5200, L500.4050 #### [facility] [address] [place], [address] Glucose [Mass/Vol] 81 mg/dL Normal 70-99 [facility] Comment on above: Order Comment: Order Date: 06/09/25 Order Info: 785-1 - CMP Order Info: [id number] - MG Order Info: 12412-7 - CRP Order Info: 3 - TSH Performed By: #### L 501.9520, L7000.5300, L501.6710, L501.5200, L500.4050 #### [facility] [address] [place], [address] Potassium [Moles/Vol] 4.6 mmol/L Normal 3.3-5.1 [facility] Comment on above: Order Comment: Order Date: 06/09/25 Order Info: 785-1 - CMP Order Info: 71592-1 - MG Order Info: 96870-4 - CRP Order Info: 3 - TSH Performed By: #### L 501.9520, L7000.5300, L501.6710, L501.5200, L500.4050 #### [facility] [address] [place], [address] Sodium [Moles/Vol] 139 mmol/L Normal 133-145 [facility] Comment on above: Order Comment: Order Date: 06/09/25 Order Info: 86-1 - CMP Order Info: 58636-7 - MG Order Info: 15460-9 - CRP Order Info: 3 - TSH Performed By: #### L 501.9520, L7000.5300, L501.6710, L501.5200, L500.4050 #### [facility] [address] [place], [place], [address] T BILI < 0.15 Normal 0.00-1.30 [facility] Comment on above: Order Comment: Order Date: 06/09/25 Order Info: 0786-1 - CMP Order Info: [id number] - MG Order Info: 17151-9 - CRP Order Info: 3015-3 - TSH Performed By: #### L 501.9520, L7000.5300, L501.6710, L501.5200, L500.4050 #### [facility] [address] [place], [place], [id number] T PROT 7.0 g/dL Normal 5.9-8.4 [facility] Comment on above: Order Comment: Order Date: 06/09/25 Order Info: 0786-1 - CMP Order Info: [id number] - MG Order Info: [id number] - CRP Order Info: 3 - TSH Performed By: #### L 501.9520, L7000.5300, L501.6710, L501.5200, L500.4050 #### [facility] [address] [place], [place], [address] Urea nitrogen [Mass/Vol] 14 mg/dL Normal 4-19 [facility] Comment on above: Order Comment: Order Date: 06/09/25 Order Info: 0786-1 - CMP Order Info: [id number] - MG Order Info: 35018-1 - CRP Order Info: 3015-3 - TSH Performed By: #### L 501.9520, L7000.5300, L501.6710, L501.5200, L500.4050 #### [facility] [address] [place], [place], [address] Glomerular filtration rate ( GFR) estimation/1.73 sq m using serum, plasma, or whole bOrdered By: Francis Miranda on 06-09-2025 GFR/1.73 sq M.predicted among non-blacks MDRD (S/P/Bld) [Vol rate/Area] 112 mL/min/{1.73_m2} >60 [facility] Comment on above: mL/min/1.73m2 CKD-EP I Creatinine Equation (2020) Laboratory - Chemistry and C hemistry - challengeOrdered By: Francis Miranda on 06-09-2025 AST [Catalytic activity/Vol] 11 U/L <32 [facility] Magnesiumon 06-09-2025 Magnesium [Mass/Vol] 2.1 mg/dL Normal 1.5-2.2 [facility] Comment on above: Order Comment: Order Date: 06/09/25 Order Info: 0786-1 - CMP Order Info: [id number] - MG Order Info: [id number] - CRP Order Info: 3016-3 - TSH Performed By: #### L 501.9520, L7000.5300, L501.6710, L501.5200, L500.4050 #### [facility] [address] [facility] [place], [place], [address] Magnesium measurement (mass/ volume)Ordered By: Francis Miranda on 06-09-2025 Magnesium (Unsp spec) [Mass/Vol] 2.1 mg/dL 1.5-2.2 [facility] Potassium measurement (mass/ volume)Ordered By: Francis Miranda on 06-09-2025 Potassium (Unsp spec) [Mass/Vol] 4.6 mmol/L 3.3-5.1 [facility] Serum creatinine measurement (mass/volume)Ordered By: Francis Miranda on 06-09-2025 Creatinine [Mass/Vol] 0.69 mg/dL Low 0.70-1.20 [facility] Serum globulin measurementOr dered By: Francis Miranda on 06-09-2025 Globulin (S) [Mass/Vol] 2.6 g/dL 2.2-4.2 [facility] Serum glucose measurement (m ass/volume)Ordered By: Francis Miranda on 06-09-2025 Glucose [Mass/Vol] 81 mg/dL 70-99 [facility] Serum or plasma C reactive p rotein measurement (mass/volume)Ordered By: Francis Miranda on 06-09-2025 CRP [Mass/Vol] mg/L 0.0-3.0 [facility] Serum or plasma alanine sun otransferase (ALT) measurementOrdered By: Francis Miranda on 06-09-2025 ALT [Catalytic activity/Vol] 8 U/L <35 [facility] Serum or plasma albumin tori urement (mass/volume)Ordered By: Francis Miranda on 06-09-2025 Albumin [Mass/Vol] 4.4 g/dL 3.5-5.0 [facility] Serum or plasma albumin/glob ulin mass ratioOrdered By: Francis Miranda on 06-09-2025 Albumin/Globulin [Mass ratio] 1.7 {ratio} 0.9-2.4 [facility] Serum or plasma alkaline eloy sphatase measurementOrdered By: Francis Mrianda on 06-09-2025 ALP [Catalytic activity/Vol] 56 U/L 35-104 [facility] Serum or plasma calcium tori urement (mass/volume)Ordered By: Francis Miranda on 06-09-2025 Calcium [Mass/Vol] 8.9 mg/dL 7.6-11.0 [facility] Serum or plasma urea nitroge n measurement (mass/volume)Ordered By: Francis Miranda on 06-09-2025 Urea nitrogen [Mass/Vol] 14 mg/dL 4-19 [facility] Sodium levelOrdered By: Francis Miranda on 06-09-2025 Sodium [Moles/Vol] 139 mmol/L 133-145 [facility] TSH DL <= 0.005 mIU/L QnOrde red By: Francis Miranda on 06-09-2025 TSH Qn 4.160 uIU/mL 0.300-4.200 [facility] Thyroid Stim Hormone (TSH)on 06-09-2025 TSH 4.160 uIU/mL Normal 0.300-4.200 [facility] Comment on above: Order Comment: Order Date: 06/09/25 Order Info: 0786-1 - CMP Order Info: [id number] - MG Order Info: [id number] - CRP Order Info: 3016-3 - TSH Performed By: #### L 501.9520, L7000.5300, L501.6710, L501.5200, L500.4050 #### [facility] [address] [place], [address] Total proteinOrdered By: Ashely Miranda on 06-09-2025 Protein [Mass/Vol] 7.0 g/dL 5.9-8.4 [facility] .Auto Diffon 2025 Basophil, Absolute 0.1 10 3/mcL Normal 0.0-0.3 [facility] Comment on above: Performed By: #### A DIFF, PBNP, MDW, TROPHS, ANEU, CBC #### [address] [address] Basophils/100 WBC (Bld) 0.7 % Normal 0.0-2.5 [facility] Comment on above: Performed By: #### A DIFF, PBNP, MDW, TROPHS, ANEU, CBC #### [address] [address] Eosinophil, Absolute 0.0 10 3/mcL Normal 0.0-0.[address] [facility] Comment on above: Performed By: #### A DIFF, PBNP, MDW, TROPHS, ANEU, CBC #### [address] [address] Eosinophils/100 WBC (Bld) 0.4 % Normal 0.0-6.0 [facility] Comment on above: Performed By: #### A DIFF, PBNP, MDW, TROPHS, ANEU, CBC #### [address] [address] Lymphocyte, Absolute 3.0 10 3/mcL Normal 0.9-4.[address] [facility] Comment on above: Performed By: #### A DIFF, PBNP, MDW, TROPHS, ANEU, CBC #### [address] [address] Lymphocytes/100 WBC (Bld) 31.5 % Normal 20.0-40.0 [facility] Comment on above: Performed By: #### A DIFF, PBNP, MDW, TROPHS, ANEU, CBC #### [address] [address] Monocyte, Absolute 0.7 10 3/mcL Normal 0.1-1.4 [facility] Comment on above: Performed By: #### A DIFF, REYNA, BRENT, TROPHS, ANEU, CBC #### [address] [address] Monocytes/100 WBC (Bld) 6.9 % Normal 2.0-13.0 [facility] Comment on above: Performed By: #### A DIFF, REYNA, BRENT, TROPHS, ANEU, CBC #### [address] [address] Neutrophils/100 WBC (Bld) 60.5 % Normal 50.0-75.0 [facility] Comment on above: Performed By: #### A RUBY, REYNA, BRENT, TROPHS, ANEU, CBC #### [address] [address] .GFRon 2025 Estimated Glomerular Filtration Rate 89 [...] results. Performed By: #### A DIFF, REYNA, BRENT, TROPHS, ANEU, CBC #### [address] [address] .MDWon 2025 Monocyte Distribution Width 19.94 Normal 0.00-20.00 [facility] Comment on above: Result Comment: For ED adult patients suspected of sepsis, MDW<=20.0 does not rule out sepsis or risk of sepsis Performed By: #### A REYNA BELTRAN MDW, TROPHS, ANEU, CBC #### [address] [address] .NEUABSon 2025 Neutrophil, Absolute 5.7 10 3/mcL Normal 2.3-8.[address] [facility] Comment on above: Performed By: #### A DIFF, PBMICHELLE, MDW, TROPHS, ANEU, CBC #### [address] [address] CBCon 2025 Erythrocyte distribution width (RBC) [Ratio] 14.9 % Normal 11.5-15.5 [facility] Comment on above: Performed By: #### A DIFF, PBMICHELLE, MDW, TROPHS, ANEU, CBC #### [address] [address] Hematocrit (Bld) [Volume fraction] 42.1 % Normal 34.0-46.0 [facility] Comment on above: Performed By: #### A DIFF, PBMICHELLE, MDW, TROPHS, ANEU, CBC #### [address] [address] Hgb 14.0 G/dL Normal 12.0-16.0 [facility] Comment on above: Performed By: #### A DIFF, PBMICHELLE, MDW, TROPHS, ANEU, CBC #### [address] [address] MCH (RBC) [Entitic mass] 29.3 pg Normal 27.0-33.0 [facility] Comment on above: Performed By: #### A DIFF, PBNP, MDW, TROPHS, ANEU, CBC #### [address] [address] MCHC 33.3 G/dL Normal 32.0-36.0 [facility] Comment on above: Performed By: #### A DIFF, PBNP, MDW, TROPHS, ANEU, CBC #### [address] [address] MCV (RBC) [Entitic vol] 88.0 fL Normal 80.0-99.0 [facility] Comment on above: Performed By: #### A DIFF, REYNA, BRENT, TROPHS, ANEU, CBC #### [address] [address] Platelet 301 10 3/mcL Normal 150-450 [facility] Comment on above: Performed By: #### A DIFF, REYNA, BRENT, TROPHS, ANEU, CBC #### [address] [address] Platelet mean volume (Bld) [Entitic vol] 8.6 fL Normal 6.6-10.5 [facility] Comment on above: Performed By: #### A DIFF, REYNA, BRENT, TROPHS, ANEU, CBC #### [address] [address] RBC 4.79 10 6/mcL Normal 4.10-5.30 [facility] Comment on above: Performed By: #### A DIFF, REYNA, BRENT, TROPHS, ANEU, CBC #### [address] [address] WBC 9.5 10 3/mcL Normal 4.5-10.8 [facility] Comment on above: Performed By: #### A DIFF, REYNA, BRENT, TROPHS, ANEU, CBC #### [address] [address] CMPon 2025 Albumin Level 4.1 G/dL Normal 3.5-5.0 [facility] Comment on above: Performed By: #### C MP, GFR #### [address] [address] Albumin/Globulin [Mass ratio] 1.3 {ratio} Normal 1.1-2.5 [facility] Comment on above: Performed By: #### C MP, GFR #### [address] [address] ALP [Catalytic activity/Vol] 83 U/L Normal 40-135 [facility] Comment on above: Performed By: #### C MP, GFR #### [address] [address] ALT [Catalytic activity/Vol] 15 U/L Normal 14-59 [facility] Comment on above: Performed By: #### C MP, GFR #### [address] [address] AST [Catalytic activity/Vol] 9 U/L Low 10-40 [facility] Comment on above: Performed By: #### C MP, GFR #### [address] [address] Bili Total 0.3 mg/dL Normal 0.2-1.0 [facility] Comment on above: Result Comment: Use of this assay is not recommended for patients undergoing treatment with eltrombopag due to the potential for falsely elevated results. Performed By: #### C MP, GFR #### [address] [address] BUN/Creatinine Ratio 11 ratio Normal 7-27 [facility] Comment on above: Performed By: #### C MP, GFR #### [address] [address] Calcium [Mass/Vol] 8.8 mg/dL Normal 8.4-10.2 [facility] Comment on above: Performed By: #### C MP, GFR #### [address] [address] Chloride [Moles/Vol] 104 mmol/L Normal 98-107 [facility] Comment on above: Performed By: #### C MP, GFR #### [address] [address] CO2 [Moles/Vol] 26 mmol/L Normal 22-29 [facility] Comment on above: Performed By: #### C MP, GFR #### [address] [address] Creatinine [Mass/Vol] 0.84 mg/dL Normal 0.51-0.95 [facility] Comment on above: Performed By: #### C MP, GFR #### [address] [address] Electrolyte Balance 10.0 mEq/L Normal 4.0-15.0 [facility] Comment on above: Performed By: #### C MP, GFR #### [address] [address] Globulin 3.1 G/dL Normal 2.7-4.4 [facility] Comment on above: Performed By: #### C MP, GFR #### [address] [address] Glucose [Mass/Vol] 92 mg/dL Normal 70-105 [facility] Comment on above: Performed By: #### C MP, GFR #### [address] [address] Potassium [Moles/Vol] 3.6 mmol/L Normal 3.5-5.1 [facility] Comment on above: Performed By: #### C MP, GFR #### [address] [address] Sodium [Moles/Vol] 140 mmol/L Normal 136-145 [facility] Comment on above: Performed By: #### C MP, GFR #### [address] [address] Total Protein 7.2 G/dL Normal 6.4-8.2 [facility] Comment on above: Performed By: #### C MP, GFR #### [address] [address] Urea nitrogen [Mass/Vol] 9 mg/dL Normal 7-18 [facility] Comment on above: Performed By: #### C MP, GFR #### [address] [address] LABORATORYOrdered By: SYSTEM SYSTEM on 2025 Troponin I.cardiac DL <= 0.01 ng/mL [Mass/Vol] 5 ng/L Normal 0 - 51 ng/L AO ADM SS Comment on above: Interpretive Data: H igh Sensitive Troponin I Reference Ranges: Female: 0-51 ng/L Male: 0-76 ng/L Testing performed on [employer] using a homogeneous sandwich chemiluminescent immunoassay based on [employer] technology. Albumin BCP dye [Mass/Vol] 4.1 G/dL [...] (Bld) [#/Vol] 4.79 106/mcL Normal 4.10 - 5.3 0 10^6/mcL AO Workflow SS Sodium [Moles/Vol] 140 mmol/L Normal 136 - 145 mmol/L AO ADM SS Troponin I.cardiac DL <= 0.01 ng/mL [Mass/Vol] 5 ng/L Normal 0 - 51 ng/L AO ADM SS Comment on above: Interpretive Data: H igh Sensitive Troponin I Reference Ranges: Female: 0-51 ng/L Male: 0-76 ng/L Testing performed on [employer] using a homogeneous sandwich chemiluminescent immunoassay based on [employer] technology. Urea nitrogen [Mass/Vol] 9 mg/dL Normal [...] above: Performed By: #### L IP #### [place] [address] PBNPon 2025 Natriuretic peptide B (Bld) [Mass/Vol] 18 pg/mL Normal 0-125 [facility] Comment on above: Result Comment: NT-p roBNP results of less than 300 pg/mL effectively rules out acute congestive heart failure with 99% negative predictive value. Performed By: #### A REYNA BELTRAN MDW, SANTAS, ANEU, CBC #### [address] [address] TROPHSon 2025 High Sensitivity Troponin I 5 ng/L Normal 0-51 [facility] Comment on above: Result Comment: High Sensitive Troponin I Reference Ranges: Female: 0-51 ng/L Male: 0-76 ng/L Testing performed on [employer] using a homogeneous sandwich chemiluminescent immunoassay based on [employer] technology. Performed By: #### T [facility] #### [place] [address] High Sensitivity Troponin I 5 ng/L Normal 0-51 [facility] Comment on above: Result Comment: High Sensitive Troponin I Reference Ranges: Female: 0-51 ng/L Male: 0-76 ng/L Testing performed on [employer] using a homogeneous sandwich chemiluminescent immunoassay based on [employer] technology. Performed By: #### A REYNA BELTRAN MDW, SANTAS, ANEU, CBC #### [place] [id number] XR CHEST 1 VIEWon 2025 XR CHEST [...] 2025 11:05:48 PM Ordering Provider: CARINE BARRAZA Normal [facility] Brain W/WO Contraston 2024 Brain W/WO Contrast [facility] Imaging Services [address] [place] [address] Brain W/WO Contrast MR#: [id number] Acct: [id number] Name: MALISSA ELLIOTT Rep #: [id number] : 1985 F 39 From: Gaurang Del Angel MD PCP: Dr. Marco A Marie MD Status: REG CLI Study: Brain W/WO Contrast Date of Exam: 03/23/25 Exam# [id number] Ordering Dr: Marco A Marie MD EXAM: [...] CONSTANCE CC: Dr. Marco A Marie MD Exposure Machine Operator: Signed Normal [facility] Brain/Head without Contrasto n 01-29-2025 Brain/Head without Contrast [facility] Imaging Services [address] [place] [address] Brain/Head without Contrast MR#: [id number] Acct: [id number] Name: MALISSA ELLIOTT Rep #: [id number] : 1985 F 39 From: Cash Huizar i, MD PCP: Dr. Marco A Marie MD Status: REG CLI Study: Brain/Head without Contrast Date of Exam: 01/04 05/29 Exam# [id number] Ordering Dr: Marco A Marie MD PROCEDURE: [...] mass effect or midline shift. Reading Location: [id number] CC: Dr. Marco A Marie MD Exposure Machine Operator: Signed Normal [facility] No Panel Informationon 01-23 Tyree mbcride and steffany [facility] No Panel InformationOrdered By: Valeria Garcia on 01-23-2025 [facility] COMPREHENSIVE METABOLIC PANE Main 01-19-2025 Albumin [Mass/Vol] 4.3 g/dL Normal 3.2-5.2 [facility] Comment on above: Order Comment: [facility] has implemented the eGFR calculation approach that does not have a coefficient for race that conforms to the NKF-ASN Task Force Recommendations. Performed By: #### 4 6126 #### [facility] [address] [place], [place] [address] Chaz Rogers M.D. [id number] ALP [Catalytic activity/Vol] 59 U/L Normal 40-140 [facility] Comment on above: Order Comment: [facility] has implemented the eGFR calculation approach that does not have a coefficient for race that conforms to the NKF-ASN Task Force Recommendations. Performed By: #### 4 6147 #### LAB [address] [place] [address] Chaz Rogers M.D. [id number] ALT [Catalytic activity/Vol] 5 U/L Normal 0-35 U/L [facility] Comment on above: Order Comment: [facility] has implemented the eGFR calculation approach that does not have a coefficient for race that conforms to the NKF-ASN Task Force Recommendations. Performed By: #### 4 6126 #### SH [place] [address] Chaz Rogers M.D. [id number] Anion gap [Moles/Vol] 16 mmol/L Normal 10-20 [facility] Comment on above: Order Comment: [facility] has implemented the eGFR calculation approach that does not have a coefficient for race that conforms to the NKF-ASN Task Force Recommendations. Performed By: #### 4 6126 #### [place] [address] Chaz Rogers M.D. [id number] AST [Catalytic activity/Vol] 13 U/L Normal 0-35 U/L [facility] Comment on above: Order Comment: [facility] has implemented the eGFR calculation approach that does not have a coefficient for race that conforms to the NKF-ASN Task Force Recommendations. Performed By: #### 4 6126 #### [place] [address] Chaz Rogers M.D. [id number] Bilirubin [Mass/Vol] 0.2 mg/dL Normal 0.0-1.3 [facility] Comment on above: Order Comment: [facility] has implemented the eGFR calculation approach that does not have a coefficient for race that conforms to the NKF-ASN Task Force Recommendations. Performed By: #### 4 6126 #### [place] [address] Chaz Rogers M.D. [id number] Calcium [Mass/Vol] 8.8 mg/dL Normal 8.4-10.2 [facility] Comment on above: Order Comment: [facility] has implemented the eGFR calculation approach that does not have a coefficient for race that conforms to the NKF-ASN Task Force Recommendations. Performed By: #### 4 6126 #### SH LAB [address] [place] [address] Chaz Rogers M.D. [id number] Chloride [Moles/Vol] 105 mmol/L Normal 98-108 [facility] Comment on above: Order Comment: [facility] has implemented the eGFR calculation approach that does not have a coefficient for race that conforms to the NKF-ASN Task Force Recommendations. Performed By: #### 4 6126 #### SH [address] [address] Chaz Rogers M.D. [id number] Creatinine [Mass/Vol] 0.77 mg/dL Normal 0.40-1.10 [facility] Comment on above: Order Comment: [facility] has implemented the eGFR calculation approach that does not have a coefficient for race that conforms to the NKF-ASN Task Force Recommendations. Performed By: #### 4 6126 #### SH [address] [address] Chaz Rogers M.D. [id number] EGFR 100 mL/min/1.73 m2 Normal >=60 [facility] Comment on above: Order Comment: [facility] has implemented the eGFR calculation approach that does not have a coefficient for race that conforms to the NKF-ASN Task Force Recommendations. Result Comment: Barbara mated GFR was calculated using the 2020 CKD-EPI creatinine equation. Performed By: #### 4 6126 #### SH [address] [address] Chaz Rogers M.D. [id number] Glucose [Mass/Vol] 85 mg/dL Normal 65-99 [facility] Comment on above: Order Comment: [facility] has implemented the eGFR calculation approach that does not have a coefficient for race that conforms to the NKF-ASN Task Force Recommendations. Performed By: #### 4 6126 #### SH [address] [address] Chaz Rogers M.D. [id number] HCO3 (Bld) [Moles/Vol] 20 mmol/L Low 21-32 [facility] Comment on above: Order Comment: [facility] has implemented the eGFR calculation approach that does not have a coefficient for race that conforms to the NKF-ASN Task Force Recommendations. Performed By: #### 4 6126 #### SH LAB [address] [place] [address] Chaz Rogers M.D. [id number] Potassium [Moles/Vol] 4.3 mmol/L Normal 3.5-5.1 [facility] Comment on above: Order Comment: [facility] has implemented the eGFR calculation approach that does not have a coefficient for race that conforms to the NKF-ASN Task Force Recommendations. Performed By: #### 4 6126 #### SH [place] [address] Chaz Rogers M.D. [id number] Protein [Mass/Vol] 7.2 g/dL Normal 6.0-8.0 [facility] Comment on above: Order Comment: [facility] has implemented the eGFR calculation approach that does not have a coefficient for race that conforms to the NKF-ASN Task Force Recommendations. Performed By: #### 4 6126 #### [place] [address] Chaz Rogers M.D. [id number] Sodium [Moles/Vol] 137 mmol/L Normal 135-145 [facility] Comment on above: Order Comment: [facility] has implemented the eGFR calculation approach that does not have a coefficient for race that conforms to the NKF-ASN Task Force Recommendations. Performed By: #### 4 6126 #### SH [place] [address] Chaz Rogers M.D. [id number] Urea nitrogen [Mass/Vol] 8 mg/dL Normal 8-25 [facility] Comment on above: Order Comment: [facility] has implemented the eGFR calculation approach that does not have a coefficient for race that conforms to the NKF-ASN Task Force Recommendations. Performed By: #### 4 6178 #### SH LAB [address] [place], [place] [address] Chaz Rogers M.D. [id number] Urea nitrogen/Creatinine [Mass ratio] 10.4 mg/mg Normal 10.0-20.0 [facility] Comment on above: Order Comment: [facility] has implemented the eGFR calculation approach that does not have a coefficient for race that conforms to the NKF-ASN Task Force Recommendations. Performed By: #### 4 6126 #### SH LAB [address] [place], [place] [address] Chaz Rogers M.D. 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 AUTHENTICATED BY CM COBIAN JR., ON 01/16/2025 08:40:32 Normal [facility] Ambulatory CBC Auto Differentialon 03-0 Basophils (Bld) [#/Vol] 0.07 10*3/uL [facility] Basophils/100 WBC (Bld) 0.8 % [facility] Eosinophils (Bld) [#/Vol] 0.04 10*3/uL [facility] Eosinophils/100 WBC (Bld) 0.5 % [facility] Erythrocyte distribution width (RBC) [Entitic vol] 13.7 % 11.6 - 14.8 % [facility] Hematocrit (Bld) [Volume fraction] 42 % 36.0 - 46.0 % [facility] Hemoglobin (Bld) [Mass/Vol] 13.9 g/dL 12.0 - 16.0 g/dL [facility] Immature granulocytes (Bld) [#/Vol] 0.02 10*3/uL [facility] Immature granulocytes/100 WBC (Bld) 0.2 % [facility] Comment on above: The IG parameter is the percentage of metamyelocytes, myelocytes and promyelocytes. An immature granulocyte count (IG) of 1% or more suggests the possibility of infection, an IG count of 3% is very likely related to an infection. Lymphocytes (Bld) [#/Vol] 3.17 10*3/uL [facility] Lymphocytes/100 WBC (Bld) 36.6 % [facility] MCH (RBC) [Entitic mass] 29.5 pg 26.0 - 34.0 pg [facility] MCHC (RBC) [Mass/Vol] 33.1 g/dL 31.0 - 37.0 g/dL [facility] MCV (RBC) [Entitic vol] 89.2 fL 80.0 - 100.0 fL [facility] Monocytes (Bld) [#/Vol] 0.54 10*3/uL [facility] Monocytes/100 WBC (Bld) 6.2 % [facility] Neutrophils (Bld) [#/Vol] 4.82 10*3/uL [facility] Neutrophils/100 WBC (Bld) 55.7 % [facility] Nucleated RBC (Bld) [#/Vol] 0 10*3/uL [facility] Nucleated RBC/100 WBC (Bld) [Ratio] 0 % [facility] Platelet mean volume (Bld) [Entitic vol] 10.6 fL 9.4 - 12.4 fL [facility] Platelets (Bld) [#/Vol] 327 10*3/uL [facility] RBC (Bld) [#/Vol] 4.71 10*6/uL [facility] WBC (Bld) [#/Vol] 8.66 10*3/uL [facility] CBC WITH AUTO DIFFERENTIALon 01-06-2025 AUTO NRBC 0.0 % Normal [facility] Comment on above: Performed By: #### L [id number] #### LAB [address] [place] [address] Chaz Rogers M.D. [id number] AUTO NRBC ABS COUNT 0.00 K/mcL Normal 0.00-0.00 [facility] Comment on above: Performed By: #### L [id number] #### LAB [address] [place] [address] Chaz Rogers M.D. [id number] BASOPHILS ABSOLUTE COUNT 0.07 K/mcL Normal 0.00-0.30 [facility] Comment on above: Performed By: #### L [id number] #### LAB [address] [place] [address] Chaz Rogers M.D. [id number] Basophils/100 WBC (Bld) 0.8 % Normal [facility] Comment on above: Performed By: #### L [id number] #### LAB [address] [place] [address] Chaz Rogers M.D. [id number] Eosinophils (Bld) [#/Vol] 0.04 10*3/uL Normal 0.00-0.50 [facility] Comment on above: Performed By: #### L [id number] #### LAB [address] [place] [address] Chaz Rogers M.D. [id number] Eosinophils/100 WBC (Bld) 0.5 % Normal [facility] Comment on above: Performed By: #### L [id number] #### LAB [address] [place] [address] Chaz Rogers M.D. [id number] Erythrocyte distribution width (RBC) [Ratio] 13.7 % Normal 11.6-14.8 [facility] Comment on above: Performed By: #### L SY0581 #### LAB [address] [place] [address] Chaz Rogers M.D. [id number] Hematocrit (Bld) [Volume fraction] 42.0 % Normal 36.0-46.0 [facility] Comment on above: Performed By: #### L [id number] #### LAB [address] [place] [address] Chaz Rogers M.D. [id number] Hemoglobin (Bld) [Mass/Vol] 13.9 g/dL Normal 12.0-16.0 [facility] Comment on above: Performed By: #### L [id number] #### LAB [address] [place] [address] Chaz Rogers M.D. [id number] IG ABSOLUTE 0.02 K/mcL Normal 0.00-0.30 [facility] Comment on above: Performed By: #### L [id number] #### LAB [address] [place] [address] Chaz Rogers M.D. [id number] IG PERCENT 0.20 % Normal [facility] Comment on above: Result Comment: The IG parameter is the percentage of metamyelocytes, myelocytes and promyelocytes. An immature granulocyte count (IG) of 1% or more suggests the possibility of infection, an IG count of 3% is very likely related to an infection. Performed By: #### L [id number] #### LAB [address] [place] [address] Chaz Rogers M.D. [id number] Lymphocytes (Bld) [#/Vol] 3.17 10*3/uL Normal 0.90-4.00 [facility] Comment on above: Performed By: #### L [id number] #### LAB [address] [place] [address] Chaz Rogers M.D. [id number] Lymphocytes/100 WBC (Bld) 36.6 % Normal [facility] Comment on above: Performed By: #### L [id number] #### LAB [address] [place] [address] Chaz Rogers M.D. [id number] MCH (RBC) [Entitic mass] 29.5 pg Normal 26.0-34.0 [facility] Comment on above: Performed By: #### L [id number] #### LAB [address] [place] [address] Chaz Rogers M.D. [id number] MCV (RBC) [Entitic vol] 89.2 fL Normal 80.0-100.0 [facility] Comment on above: Performed By: #### L HA4582 #### LAB [address] [place] [address] Chaz Rogers M.D. [id number] MEAN CORPUSCULAR HEMOGLOBIN CONC 33.1 g/dL Normal 31.0-37.0 [facility] Comment on above: Performed By: #### L [id number] #### LAB [address] [place] [address] Chaz Rogers M.D. [id number] Monocytes (Bld) [#/Vol] 0.54 10*3/uL Normal 0.30-0.90 [facility] Comment on above: Performed By: #### L [id number] #### LAB [address] [place] [address] Chaz Rogers M.D. [id number] Monocytes/100 WBC (Bld) 6.2 % Normal [facility] Comment on above: Performed By: #### L [id number] #### LAB [address] [place] [address] Chaz Rogers M.D. [id number] NEUTROPHILS ABSOLUTE COUNT 4.82 K/mcL Normal 1.70-7.00 [facility] Comment on above: Performed By: #### L EJ7595 #### LAB [address] [place] [address] Chaz Rogers M.D. [id number] Neutrophils/100 WBC (Bld) 55.7 % Normal [facility] Comment on above: Performed By: #### L OY8686 #### LAB [address] [place] [address] Chaz Rogers M.D. [id number] Platelet mean volume (Bld) [Entitic vol] 10.6 fL Normal 9.4-12.4 [facility] Comment on above: Performed By: #### L [id number] #### LAB [address] [place] [address] Chaz Rogers M.D. [id number] Platelets (Bld) [#/Vol] 327 10*3/uL Normal 150-400 [facility] Comment on above: Performed By: #### L TR2703 #### LAB [address] [place] [address] Chaz Rogers M.D. [id number] RBC (Bld) [#/Vol] 4.71 10*6/uL Normal 4.00-5.20 [facility] Comment on above: Performed By: #### L [id number] #### LAB [address] [place] [address] Chaz Rogers M.D. [id number] WBC (Bld) [#/Vol] 8.66 10*3/uL Normal 4.50-11.00 [facility] Comment on above: Performed By: #### L [id number] #### LAB [address] [place] [address] Chaz Rogers M.D. [id number] MR FOOT LEFT WITHOUT CONTRAS Ton 12-19-2024 [...] SunDec 22, 2024 2:18:10 PM EST Normal [facility] Comment on above: Order Comment: Injur y/Trauma or Illness?:Illness/Other How long have you had these symptoms (acute/chronic)?:Chronic Reason for exam?:Left plantar hindfoot pain since February 2024. Type of Exam?:Subsequent/Follow-up Additional signs and symptoms?:. It Systems Analyst Consultant Office Visit Reporton 10-14-2024 It Systems Analyst Consultant Office Visit Report [facility]'[address], [address] [place] [address] OFFICE VISIT Date of Service: 10/14/24 MR#: [id number] Acct: [id number] Name: MALISSA ELLIOTT BRIANNA Rep #: [id number] : 1985 Provider: INGRID mejia Age/Sex: 39/F Location: [facility] Status: Signed Intake Vital Signs 09/10/24 14:04 09/12/24 16:50 09/23/24 13:42 10/14/24 15:20 10/14/24 15:23 Height 5 ft 7 in 5 ft 7 in 5 ft 7 in 5 ft 7 in 5 ft 7 in Weight: 182 lb BMI 28.5 BP 122/82 H Intake Visit Reasons: 2 wk left ovarian cystectomy Chief Complaint: 2 Week left ovarian cystectomy Shiatsu Therapist Required: No Is patient in pain?: No [...] PRN Pain #30 tabs 09/23/24 10/14/24 Rx oxycodone-acetaminoph en 5 mg-325 1 tab PO Q6H PRN [...] exam, prn 10/14/24 1545 Date Maddie Gaytan [employer]ING [employer]-C Cosigner Signature: Date (if applicable) CC: Normal [facility] Esophagus Single Contraston 09-25-2024 Esophagus Single Contrast [facility] Imaging Services [address] [place] [address] Esophagus Single Contrast MR#: [id number] Acct: [id number] Name: MALISSA ELLIOTT BRIANNA Rep #: [id number] : 1985 F 39 From: Winston ly MD PCP: Dr. Marco A Marie MD Status: REG CLI Study: Esophagus Single Contrast Date of Exam: Exam# [id number] Ordering Dr: Marco A Marie MD [id number] STUDY: X-RAY - ESOPHAGUS (BARIUM SWALLOW) WITH [...] Electronically Signed: Winston Lamb MD at 10:02 [facility] , CC: Dr. Marco A Marie MD Exposure Machine Operator: Signed Normal [facility] Thyroidon 09-24-2024 Thyroid [facility] Imaging Services [address] [place] [address] Thyroid MR#: [id number] Acct: [id number] Name: MALISSA ELLIOTT Rep #: [id number] : 1985 F 39 From: Winston ly MD PCP: Dr. Marco A Marie MD Status: REG CLI Study: Thyroid Date of Exam: 09/24/24 Exam# [id number] Ordering Dr: Marco A Marie MD [id number] STUDY: THYROID ULTRASOUND REASON FOR EXAM: Female, [...] 12:32 EST Reading Location ID and State: [address] [place] [address] , Service support , CC: Dr. Marco A Marie MD Exposure Machine Operator: Signed Normal [facility] Cytology, Body Fluid / CSFon 09-23-2024 CYTOLOGY,BF/CSF SEE PATHOLOGY REPORT Normal [facility] Comment on above: Order Comment: Comme nts: collected in or right ovarian cyst fluid cytology Result Comment: Spec imen submitted to Anatomical Pathology Department for testing. Performed By: #### L 350.1000 #### [facility] Laboratory [address] [place], [address] Discharge Instructionon 09-05 Discharge Instruction [facility] Medical Records Department [address] [place] [address] Instructions for Home/Discharge Instructions 09/23/24 1709 MR#: [id number] Acct: [id number] Name: MALISSA ELLIOTT Rep #: [id number] : 1985 39 From: Samara Canas MD PCP: Dr. Marco A Marie MD Status:REG [facility] Discharge Instructions Diet Discharge Diet: No restrictions [...] Provider: Marco A Marie Instructions Print Language: Sinhala Discharge Orders/Prescriptions Prescriptions: New oxycodone-acetaminoph en [Percocet] 5-325 mg tablet 1 tab PO [...] 11RF Referrals / Follow Up: Marco A Marie MD [Primary Care Provider] - Disposition Disposition (needs filled in before D/C Order can be placed): Home, Self Care 09/23/241711 Samara Canas MD CC: Dr. Marco A Marie MD Signed [facility] MR/POSTOP.ANEon 09-23-2024 MR/POSTOP.[facility] Medical Records Department [address] [place] [address] Anesthesia Postop Eval I 09/23/241720 MR#: [id number] Acct: [id number] Name: MALISSA ELLIOTT BRIANNA Rep #: [id number] : 1985 39 From: Preeti Cox PCP: Dr. Marco A Marie MD Status:[facility] Y Race: C Location: [place] [address] Anesthesia: Postop Eval I Current Vital Signs [...] Date Preeti Canales Signature: Date CC: Signed [facility] MR/[id number] 09-23-2024 MR/POSTOPAN2 [facility] Medical Records Department [address] [place] [address] Anesthesia Postop Eval II 09/23/24 1735 MR#: [id number] Acct: [id number] Name: ELLIOTTMALISSA Holman BRIANNA Rep #: [id number] : 1985 39 From: Fidel Martinez MD PCP: Dr. Marco A Marie MD Status:REG [facility] Y Race: C Location: [facility]19- Anesthesia Postop Eval I Sum Postop Eval Completion status Anesthesia document: Postop Eval 1 completed: Yes Anesthesia Postop Eval I Summary Anesthesia Postop Eval I Summary: Anesthesia Postop Eval I: Assessment Summary Airway patent Yes 09/23/24 17:21 GARDEN WORKER.CSIR Spontaneous unlabored Yes 09/23/24 17:21 GARDEN WORKER.CSIR respirations Mental status nausea No 09/23/24 17:21 GARDEN WORKER.CSIR Vomiting No 09/23/24 17:21 GARDEN WORKER.CSIR Anesthesia Postop Eval I: Fluid Summary Crystalloid volume administer 1,000 09/23/24 17:21 GARDEN WORKER.CSIR (ml) Colloids volume administered ( ml) Blood Product volume administered (ml) Total IV fluid infused 1,000 09/23/24 17:21 GARDEN WORKER.CSIR Anesthesia Postop Eval I: Summary Notes Anesthesia Complication No 09/23/24 17:21 GARDEN WORKER.CSIR Anesthesia Complication Comment: Post-operative progress note Anesthesia: Postop Eval II Evaluation Mental status: Awake Pain Level: 0 nausea: No Vomiting: No 09/23/24 1735 Date Fidel Martinez MD Cosigner Signature: Date CC: Signed Normal [facility] Operative Reporton 4 Operative Report [facility] Medical Records Department [address] [place] [address] Operative Report 09/23/24 1708 MR#: [id number] Acct: [id number] Name: MALISSA ELLIOTT BRIANNA Rep #: [id number] : 1985 39 From: Samara Canas MD PCP: Dr. Marco A Marie MD Status:[facility] Location: [facility] Problems Associated Problem List Diagnoses (1) History [...] left tube and cystic lesion Select all DRAINS/GRAFTS/IMPLANT S that apply: Drains (irby present during procedure [...] dermoid and left tube and cystic lesion Safety Equipment Testing Specialist sponge maker: Yes Dental Laboratory Technician Apprentice: Antonio Peña Tasks completed by residential assistant: Opening closing, Trocar and Retracting Complications Complications: No Procedures Urinary/Genital 52xxx-59xxx: 23969 Laproscopic BS/O 09/24/24 0821 Cosigner Signature (if applicable): CC: Dr. Marco A Marie MD; Dr. Samara Canas MD Signed Normal [facility] ,Urineon 09-23-2024 Beta HCG ( test) Ql (U) Negative Normal [facility] Comment on above: Result Comment: Very dilute urine specimens, as indicated by a low specific gravity, may not contain retail representative levels of hCG. If is still suspected, a first morning urine specimen should be collected 48 hours later and tested. Performed By: #### L 501.9520, L7000.5300, L501.6710, L501.5200, L500.4050 #### [facility] [address] [place], [address] Special Stain Group IIon Special Stain Group II ---- -------- Patient Age/Sex Location Account Attending Physician -------- EARLMALISSA BRIANNA 39/F [facility] [id number] Dr. Samara Canas MD -------- Specimen: [id number] Received: 09/23/24 Status: CADEN Ash Num: [id number] Spec Type: Fluid Subm Dr: Dr. Samara Canas MD HEADER OPERATION: Laparoscopic, ovarian cystectomy PRE-OP DIAGNOSIS: Right ovarian cyst fluid TISSUE SUBMITTED: Right ovary cyst fluid for cytology -------- DIAGNOSIS CYTOLOGY Right ovarian cyst fluid for cytology (cytospin and cellblock): Paucicellular specimen, negative for malignant cells. See comment. SJ.mr 09/25/2024 COMMENT Please also make reference to additional specimen [id number]. Clinical correlation and appropriate follow up are necessary. CYTOLOGY STUDY Slides are reviewed. CYTOLOGY GROSS Received is 7 ml of red-milky fluid labeled with the patient's name and and designated per the requisition as Right ovary cyst fluid. Submitted for cytology preparation including cell block. Mr 09/24/2024 TC:5 CPT: 02816,05056 Signed (signature on file) Dr. Ottoniel Zamudio MD 09/25/24 1501 -------- Normal [facility] Comment on above: Performed By: #### L 501.9520, L7000.5300, L501.6710, L501.5200, L500.4050 #### [facility] [address] [place], [address] Surgery Specimen Level Cinthya 09-23-2024 Surgery Specimen Level IV -------- Patient Age/Sex Location Account Attending Physician -------- MALISSA ELLIOTT 39/F [facility] [id number]. Samara Canas MD -------- Specimen: [id number] Received: 09/24/24 Status: CADEN Ash Num: [id number] Spec Type: OVARY Subm Dr: Dr. Samara Canas MD HEADER OPERATION: Laparoscopic, ovarian cystectomy, right oophorectomy PRE-OP DIAGNOSIS: Dyspareunia, chronic pelvic pain in female, left ovarian cyst TISSUE SUBMITTED: Right ovary and right ovarian cyst with left tubal -------- MICROSCOPIC DIAGNOSIS Right ovary and left tube [...] the fallopian tube reveals unremarkable cut surfaces. Chief Program Officer sections are submitted in seven cassettes as follows: 1-4- ovary, 5 6- sections of the detached cyst, 7- fallopian tube. FA. 09/24/2024 TC:1 CPT:94947,38050 -------- Patient Age/Sex Location Account Attending Physician -------- MALISSA ELLIOTT 39/F [facility] [place] [id number] Dr. Samara Canas MD -------- Signed (signature on file) Dr. Ottoniel Zamudio MD 09/25/24 1502 -------- [facility] Comment on above: Performed By: #### L 501.9520, L7000.5300, L501.6710, L501.5200, L500.4050 #### [facility] [address] [place], [place], [address] Thyroglobulin w/Anti-TG ABon 09-23-2024 Anti-TG AB < 1.0 Normal 0.0-0.9 [facility] Comment on above: Order Comment: Order Date: 06/09/25 Order Info: [id number] - CMP Order Info: [id number] - MG Order Info: [id number] - CRP Order Info: 3016-3 - TSH Result Comment: Thyr oglobulin Antibody measured by Jamie Migel Methodology It should be noted that the presence of thyroglobulin antibodies may not be pathogenic nor diagnostic, especially at very low levels. The assay chocolate dipper has found that four percent of individuals without evidence of thyroid disease or autoimmunity will have positive TgAb levels up to 4 IU/mL. Performed By: #### L 501.9520, L7000.5300, L501.6710, L501.5200, L500.4050 #### [facility] [address] [place], [place], [address] THYROGLOB QUANT 6.4 ng/mL Normal 1.5-38.5 [facility] Comment on above: Order Comment: Order Date: 06/09/25 Order Info: [id number] - CMP Order Info: [id number] - MG Order Info: [id number] - CRP Order Info: 3016-3 - TSH Result Comment: Acco rding to [...] Migel Immunometric Assay Performed By: #### L 501.9520, L7000.5300, L501.6710, L501.5200, L500.4050 #### [facility] [address] [place], [place], [address] Thyroid Stim Immunoglobon THY STIM IMMUNO <0.10 Normal 0.00-0.55 [facility] Comment on above: Order Comment: Order Date: 06/09/25 Order Info: [id number] - CMP Order Info: [id number] - MG Order Info: [id number] - CRP Order Info: 3016-3 - TSH Performed By: #### L 501.9520, L7000.5300, L501.6710, L501.5200, L500.4050 #### [facility] [address] [place], [address] 12 Lead EKGon 09-22-2024 12 Lead EKG [facility] Services [address] [place] [address] 12 Lead EKG 09/22/24 0732 MR#: [id number] Acct: [id number] Name: MALISSA ELLIOTT Rep #: [id number] : 1985 39 From: Joshua Covarrubias MD Attending Dr: Dr. Samara Canas MD Status: PRE [facility] Ordering Dr: Fidel Martinez MD Date: 09/22/24 [place] [facility] [place] Sex: F C Admitted: Test Reason : [...] ECG Confirmed by CLAUDE CONNOLLY, JOSHUA ([id number]), commercial production editor MERY MOYA ([id number]) on 09/22/2024 9:59:39 AM Referred By: Samara Canas Confirmed By: JOSHUA COVARRUBIAS MD 09/22/24 0959 Date Joshua Covarrubias MD CC: Dr. Fidel Martinez MD; Dr. Marco A Marie MD; Dr. Samara Canas MD Signed Normal [facility] Basic Metabolic Profile (BMP )on 09-17-2024 BUN/CRE 9.8 RATIO Low 10-20 [facility] Comment on above: Performed By: #### L 500.3400, L500.2500, L300.4310, L300.3900 #### [facility] [address] [place], [address] CA,Total 8.8 mg/dL Normal 8.5-10.1 [facility] Comment on above: Performed By: #### L 500.3400, L500.2500, L300.4310, L300.3900 #### [facility] [address] [place], [address] Chloride [Moles/Vol] 108 mmol/L High 98-107 [facility] Comment on above: Performed By: #### L 500.3400, L500.2500, L300.4310, L300.3900 #### [facility] [address] [place], [address] CO2 [Moles/Vol] 23.0 mmol/L Normal 21.0-32.0 [facility] Comment on above: Performed By: #### L 500.3400, L500.2500, L300.4310, L300.3900 #### [facility] [address] [place], [address] Creatinine [Mass/Vol] 0.82 mg/dL Normal 0.55-1.02 [facility] Comment on above: Result Comment: The validity of the calculated GFR GFRAA in patients over 70 years has not been determined. Clinical correlation is essential. Performed By: #### L 500.3400, L500.2500, L300.4310, L300.3900 #### [facility] [address] [place], [address] EST GFR - AA 100 mL/min Normal >60 [facility] Comment on above: Result Comment: Afri can Guamanian GFR Calc Performed By: #### L 500.3400, L500.2500, L300.4310, L300.3900 #### [facility] [address] [place], [address] GAP 6 Normal 5-15 [facility] Comment on above: Performed By: #### L 500.3400, L500.2500, L300.4310, L300.3900 #### [facility] [address] [place], [address] GFR/1.73 sq M.predicted among non-blacks MDRD (S/P/Bld) [Vol rate/Area] 83 mL/min/{1.73_m2} Normal >60 [facility] Comment on above: Result Comment: Non- GFR Calc Performed By: #### L 500.3400, L500.2500, L300.4310, L300.3900 #### [facility] [address] [place], [address] Glucose [Mass/Vol] 88 mg/dL Normal 74-106 [facility] Comment on above: Performed By: #### L 500.3400, L500.2500, L300.4310, L300.3900 #### [facility] [address] [place], [address] Potassium [Moles/Vol] 3.7 mmol/L Normal 3.5-5.1 [facility] Comment on above: Performed By: #### L 500.3400, L500.2500, L300.4310, L300.3900 #### [facility] [address] [place], [address] Sodium [Moles/Vol] 136 mmol/L Normal 136-145 [facility] Comment on above: Performed By: #### L 500.3400, L500.2500, L300.4310, L300.3900 #### [facility] [address] [place], [address] Urea nitrogen [Mass/Vol] 8 mg/dL Normal 7-18 [facility] Comment on above: Performed By: #### L 500.3400, L500.2500, L300.4310, L300.3900 #### [facility] [address] [place], [address] CBC-Complete Blood Cnt No Di ffon 09-17-2024 Erythrocyte distribution width (RBC) [Ratio] 13.6 % Normal 11.6-14.6 [facility] Comment on above: Performed By: #### L 350.1000 #### [facility] [address] [place], [address] Hematocrit (Bld) [Volume fraction] 44.0 % Normal 37-47 [facility] Comment on above: Performed By: #### L 350.1000 #### [facility] [address] [place], [address] Hemoglobin (Bld) [Mass/Vol] 14.3 g/dL Normal 12.0-15.0 [facility] Comment on above: Performed By: #### L 350.1000 #### [facility] [address] [place], [address] MCH (RBC) [Entitic mass] 29.5 pg Normal 27.0-32.0 [facility] Comment on above: Performed By: #### L 350.1000 #### [facility] [address] [place], [address] MCHC (RBC) [Mass/Vol] 32.5 g/dL Normal 32-36 [facility] Comment on above: Performed By: #### L 350.1000 #### [facility] [address] [place], [address] MCV (RBC) [Entitic vol] 90.7 fL Normal 81-99 [facility] Comment on above: Performed By: #### L 350.1000 #### [facility] [address] [place], [address] Platelet mean volume (Bld) [Entitic vol] 10.9 fL Normal 6.2-12.0 [facility] Comment on above: Performed By: #### L 350.1000 #### [facility] [address] [place], [address] Platelets (Bld) [#/Vol] 349 10*3/uL Normal 150-450 [facility] Comment on above: Performed By: #### L 350.1000 #### [facility] [address] [place], [address] RBC (Bld) [#/Vol] 4.85 10*6/uL Normal 4.2-5.4 [facility] Comment on above: Performed By: #### L 350.1000 #### [facility] [address] [place], [address] RDW SD 45.7 fl High 35.1-43.9 [facility] Comment on above: Performed By: #### L 350.1000 #### [facility] [address] [place], [address] WBC (Bld) [#/Vol] 6.7 10*3/uL Normal 4.4-11.0 [facility] Comment on above: Performed By: #### L 350.1000 #### [facility] [address] [place], [address] Hemoglobin A1con 09-17-2024 HbA1c (Bld) [Mass fraction] 5.0 % Normal 3.8-5.6 [facility] Comment on above: Order Comment: Order Date: 06/09/25 Order Info: [id number] - CMP Order Info: [id number] - MG Order Info: [id number] - CRP Order Info: 3016-3 - TSH Result Comment: Norm al < 5.7 % Prediabetic 5.7 - 6.4 % Diabetic >or= 6.5 % Please note range changes. Performed By: #### L 501.9520, L7000.5300, L501.6710, L501.5200, L500.4050 #### [facility] [address] [place], [address] Liver Profileon 09-17-2024 Albumin [Mass/Vol] 4.0 g/dL Normal 3.2-5.0 [facility] Comment on above: Performed By: #### L 500.3400, L500.2500, L300.4310, L300.3900 #### [facility] [address] [place], [address] ALK P 58 U/L Normal 45-117 [facility] Comment on above: Performed By: #### L 500.3400, L500.2500, L300.4310, L300.3900 #### [facility] [address] [place], [address] ALT [Catalytic activity/Vol] 16 U/L Normal 13-56 [facility] Comment on above: Performed By: #### L 500.3400, L500.2500, L300.4310, L300.3900 #### [facility] [address] [place], [address] AST [Catalytic activity/Vol] 7 U/L Low 15-37 [facility] Comment on above: Performed By: #### L 500.3400, L500.2500, L300.4310, L300.3900 #### [facility] [address] [place], [address] Bilirubin [Mass/Vol] 0.30 mg/dL Normal 0.20-1.00 [facility] Comment on above: Result Comment: For patients on eltrombopag therapy, use of Dimension [place] TBIL is not recommended. Performed By: #### L 500.3400, L500.2500, L300.4310, L300.3900 #### [facility] [address] [place], [address] Bilirubin.direct [Mass/Vol] 0.10 mg/dL Normal 0.00-0.30 [facility] Comment on above: Performed By: #### L 500.3400, L500.2500, L300.4310, L300.3900 #### [facility] [address] [place], [address] Globulin (S) [Mass/Vol] 3.5 g/dL Normal 2.2-4.2 [facility] Comment on above: Performed By: #### L 500.3400, L500.2500, L300.4310, L300.3900 #### [facility] [address] [place], [address] T PROT 7.5 g/dL Normal 6.4-8.2 [facility] Comment on above: Performed By: #### L 500.3400, L500.2500, L300.4310, L300.3900 #### [facility] [address] [place], [address] Partial Thromboplast Timeon 09-17-2024 aPTT Coag (Bld) [Time] 25.8 s Normal 24.1-36.2 [facility] Comment on above: Performed By: #### L 500.3400, L500.2500, L300.4310, L300.3900 #### [facility] [address] [place], [address] Prothrombin Time w/INRon INR Coag (PPP) [Relative time] 0.9 {INR} Normal [facility] Comment on above: Performed By: #### L 500.3400, L500.2500, L300.4310, L300.3900 #### [facility] [address] [place], [address] PT Coag (PPP) [Time] 12.1 s Normal 11.7-14.9 [facility] Comment on above: Performed By: #### L 500.3400, L500.2500, L300.4310, L300.3900 #### [facility] [address] [place], [place], [address] T4 Free Directon 09-17-2024 T4 FREE DIRECT 1.01 ng/dL Normal 0.76-1.46 [facility] Comment on above: Order Comment: Order Date: 06/09/25 Order Info: [id number] - CMP Order Info: [id number] - MG Order Info: [id number] - CRP Order Info: 3016-3 - TSH Performed By: #### L 501.9520, L7000.5300, L501.6710, L501.5200, L500.4050 #### [facility] [address] [place], [place], [address] Thyroid Stim Hormone (TSH)on 09-17-2024 TSH 2.280 uIU/mL Normal 0.358-3.740 [facility] Comment on above: Order Comment: Order Date: 06/09/25 Order Info: [id number] - CMP Order Info: [id number] - MG Order Info: [id number] - CRP Order Info: 3016-3 - TSH Performed By: #### L 501.9520, L7000.5300, L501.6710, L501.5200, L500.4050 #### [facility] [address] [place], [place], [address] Type AND Screen - PAT ONLYon 09-17-2024 A1 CELL Not performed Normal [facility] Comment on above: Order Comment: Comme nts: collected in or right ovarian cyst fluid cytology Result Comment: This specimen has been REJECTED due to Laboratory criteria: MisLabelled- INCORRECT. LAB STAFF has been notified of need of recollection. 09/17/24 1838 Performed By: #### L 350.1000 #### [facility] [address] [place], [place], [address] Ab SCREEN GEL Not performed Normal [facility] Comment on above: Order Comment: Comme nts: collected in or right ovarian cyst fluid cytology Result Comment: This specimen has been REJECTED due to Laboratory criteria: MisLabelled- INCORRECT. LAB STAFF has been notified of need of recollection. 09/17/241837 Performed By: #### L 350.1000 #### [facility] [address] [facility] [address] ABO and Rh group Nom (Bld) Test Not Performed Normal [facility] Comment on above: Order Comment: Comme nts: collected in or right ovarian cyst fluid cytology Result Comment: This specimen has been REJECTED due to Laboratory criteria: MisLabelled- INCORRECT. LAB STAFF has been notified of need of recollection. 09/17/241837 Performed By: #### L 350.1000 #### [facility] [address] [facility] [address] ANTI A Not performed Normal [facility] Comment on above: Order Comment: Comme nts: collected in or right ovarian cyst fluid cytology Result Comment: This specimen has been REJECTED due to Laboratory criteria: MisLabelled- INCORRECT. LAB STAFF has been notified of need of recollection. 09/17/241837 Performed By: #### L 350.1000 #### [facility] [address] [place], [address] ANTI B Not performed Normal [facility] Comment on above: Order Comment: Comme nts: collected in or right ovarian cyst fluid cytology Result Comment: This specimen has been REJECTED due to Laboratory criteria: MisLabelled- INCORRECT. LAB STAFF has been notified of need of recollection. 09/17/241837 Performed By: #### L 350.1000 #### [facility] [address] [place], [place], [address] ANTI D Not performed Normal [facility] Comment on above: Order Comment: Comme nts: collected in or right ovarian cyst fluid cytology Result Comment: This specimen has been REJECTED due to Laboratory criteria: MisLabelled- INCORRECT. LAB STAFF has been notified of need of recollection. 09/17/241837 Performed By: #### L 350.1000 #### [facility] [address] [place], [place], [address] B CELLS Not performed Normal [facility] Comment on above: Order Comment: Comme nts: collected in or right ovarian cyst fluid cytology Result Comment: This specimen has been REJECTED due to Laboratory criteria: MisLabelled- INCORRECT. LAB STAFF has been notified of need of recollection. 09/17/241837 Performed By: #### L 350.1000 #### [facility] [address] [place], [place], [address] BLD TYPE RECHEK Not performed Normal [facility] Comment on above: Order Comment: Comme nts: collected in or right ovarian cyst fluid cytology Result Comment: This specimen has been REJECTED due to Laboratory criteria: MisLabelled- INCORRECT. LAB STAFF has been notified of need of recollection. 09/17/241837 Performed By: #### L 350.1000 #### [facility] [address] [place], [place], [address] It Systems Analyst Consultant Office Visit Reporton 09-10-2024 It Systems Analyst Consultant Office Visit Report [facility] [address], [address] [place] [address] OFFICE VISIT Date of Service: 09/10/24 MR#: [id number] Acct: [id number] Name: MALISSA ELLIOTT BRIANNA Rep #: [id number] : 1985 Provider: Dr. Samara carlton MD Age/Sex: 39/F Location: [facility] [place] Status: Signed Intake Vital Signs 08/04/24 09:49 09/10/24 14:04 09/10/24 14:10 Height 5 ft 7 in 5 ft 7 in Weight: 185 lb BMI 29.0 BP 149/98 H 137/97 H Intake Visit Reasons: surgical consult per Shiatsu Therapist Required: No Is patient in pain?: Yes (lower left pelvic pain) Feel stressed/tense/nervou s/anxious/difficulty sleeping: not at all Allergies adhesive tape [...] J's syndrome PSVT (paroxysmal supraventricular tachycardia) WPW (Hezxp-Eiwajhyjk-Gwmy e syndrome) Hypertensive heart disease without HF (heart [...] Yes (occasional) additional social history: - Thomas BAIG surgical consult per Details: MALISSA ELLIOTT is [...] Nutritional Appearance: average body habitus Orientation: alert HENMT Head: normal to inspection and normocephalic Neck [...] Left ovarian (more content not included)... Normal [facility] ED Prov Noteon 07-29-2024 ED Prov Note ED PROVIDER NOTE [facility] NAME: Malissa Elliott AGE: 39 y.o. : 1985 VISIT DATE: 07/29/2024 CSN: [id number] PCP: Marco A Marie MD Chief Complaint [...] AUTHENTICATED BY JONNY RAMIREZ, ON 07/29/2024 17:30:24 [facility] XR SHOULDER LEFT 2+ VIEWS (S TANDARD)on [...] on SunJul 29, 2024 5:56:29 PM EDT [facility] Comment on above: Order Comment: Injur y/Trauma or Illness?:Injury/Trauma How long have you had these symptoms (acute/chronic)?:Acute Reason for exam?:fall a week or so ago and has continued pain and discomfort in the shoudler with increased pain when moving/using the arm History of cancer?:u Surgeries, chemotherapy, or radiation?:u Type of Exam?:Initial Mechanism of injury?:fall CT ABDOMEN/PELVIS W/O CONTRA STon 07-11-2024 CT ABDOMEN/PELVIS W/O CONTRAST ORIGINAL HISTORY: [...] aPTT Coag (PPP) [Time] 26.5 s 24.1-36.2 [facility] Basophil percentageOrdered B y: Marco A Marie on 05-07-2024 Bilirubin [Mass/Vol] 0.30 mg/dL 0.20-1.00 [facility] Comment on above: For patients on eltr ombopag therapy, use of Dimension [place] TBIL is not recommended. Chloride [Moles/Vol] 110 mmol/L 98-107 [facility] Glucose [Mass/Vol] 69 mg/dL 74-106 [facility] Hemoglobin (Bld) [Mass/Vol] 13.5 g/dL 12.0-15.0 [facility] Potassium [Moles/Vol] 3.8 mmol/L 3.5-5.1 [facility] Protein [Mass/Vol] 7.4 g/dL 6.4-8.2 [facility] Sodium [Moles/Vol] 138 mmol/L 136-145 [facility] WBC (Bld) [#/Vol] 7.4 10*3/uL 4.4-11.0 [facility] Determination of erythrocyte mean corpuscular volume (MCV)Ordered By: Marco A Marie on 03-11-2024 MCV (RBC) [Entitic vol] 89.8 fL 81-99 [facility] Erythrocyte distribution wid th ratioOrdered By: Marco A Marie on 03-11-2024 Erythrocyte distribution width (RBC) [Ratio] 13.8 % 11.6-14.6 [facility] Erythrocyte distribution wid th standard deviationOrdered By: Marco A Marie on 03-11-2024 Erythrocyte distribution width (RBC) [Entitic vol] 44.9 fL 35.1-43.9 [facility] Hematocrit Auto (Bld) [Volum e fraction]Ordered By: Marco A Marie on 03-11-2024 Hematocrit (Bld) [Volume fraction] 41.5 % 37-47 [facility] - Chemistry and C hemistry - challengeOrdered By: Marco A Marie on 03-11-2024 Albumin/Globulin [Mass ratio] 1.2 {ratio} 0.9-2.4 [facility] ALP [Catalytic activity/Vol] 59 U/L 45-117 [facility] ALT [Catalytic activity/Vol] 12 U/L 13-56 [facility] CO2 [Moles/Vol] 23.0 mmol/L 21.0-32.0 [facility] Globulin (S) [Mass/Vol] 3.4 g/dL 2.2-4.2 [facility] Urea nitrogen/Creatinine [Mass ratio] 11.0 mg/mg 10-20 [facility] - CoagulationOrde red By: Marco A Marie on 03-11-2024 INR Coag (Bld) [Relative time] 0.9 {INR} [facility] PT Coag (PPP) [Time] 12.2 s 11.7-14.9 [facility] Laboratory - Hematology and Cell countsOrdered By: Marco A Marie on 03-11-2024 MCH (RBC) [Entitic mass] 29.2 pg 27.0-32.0 [facility] MCHC (RBC) [Mass/Vol] 32.5 g/dL 32-36 [facility] Platelet mean volume (Bld) [Entitic vol] 11.1 fL 6.2-12.0 [facility] Platelets (Bld) [#/Vol] 334 10*3/uL 150-450 [facility] No Panel InformationOrdered By: Marco A Marie on 03-11-2024 Estimated GFR (MDRD) Amer 100 mL/min >60 [facility] Comment on above: GFR Calc Estimated GFR (MDRD) Non-Af Amer 82 mL/min >60 [facility] Comment on above: Non- GFR Calc RBC Auto (Bld) [#/Vol]Ordere d By: Marco A Marie on 03-11-2024 RBC (Bld) [#/Vol] 4.62 10*6/uL 4.2-5.4 [facility] Serum or plasma calcium tori urement (mass/volume)Ordered By: Marco A Marie on 03-11-2024 Calcium [Mass/Vol] 8.8 mg/dL 8.5-10.1 [facility] Serum or plasma creatinine m easurement (mass/volume)Ordered By: Marco A Marie on 03-11-2024 Creatinine [Mass/Vol] 0.82 mg/dL 0.55-1.02 [facility] Comment on above: The validity of the calculated GFR & GFRAA in patients over 70 years has not been determined. Clinical correlation is essential. Serum or plasma urea nitroge n measurement (mass/volume)Ordered By: Marco A Marie on 03-11-2024 Urea nitrogen [Mass/Vol] 9 mg/dL 7-18 [facility] Thin prep Papanicolaou smear with manual screeningOrdered By: Marco A Marie on 03-11-2024 Thin prep Papanicolaou smear with manual screening 4.0 g/dL 3.2-5.0 [facility] Thin prep Papanicolaou smear with manual screening 11 U/L 15-37 [facility] Thin prep Papanicolaou smear with manual screening 5 5-15 [facility] Basophil percentageOrdered B y: Sarai Sosa on 12-25-2023 Chloride [Moles/Vol] 108 mmol/L 98-107 [facility] Glucose [Mass/Vol] 82 mg/dL 74-106 [facility] Potassium [Moles/Vol] 3.8 mmol/L 3.5-5.1 [facility] Sodium [Moles/Vol] 138 mmol/L 136-145 [facility] Laboratory - Chemistry and C hemistry - challengeOrdered By: Sarai Sosa on 12-25-2023 CO2 [Moles/Vol] 22.0 mmol/L 21.0-32.0 [facility] Urea nitrogen/Creatinine [Mass ratio] 14.6 mg/mg 10- [facility] No Panel InformationOrdered By: Sarai Sosa on 12-25-2023 Estimated GFR (MDRD) Amer 110 mL/min >60 [facility] Comment on above: GFR Calc Estimated GFR (MDRD) Non-Af Amer 91 mL/min >60 [facility] Comment on above: Non- GFR Calc Serum or plasma calcium tori urement (mass/volume)Ordered By: Sarai Sosa on 12-25-2023 Calcium [Mass/Vol] 8.8 mg/dL 8.5-10.1 [facility] Serum or plasma creatinine m easurement (mass/volume)Ordered By: Sarai Sosa on 12-25-2023 Creatinine [Mass/Vol] 0.75 mg/dL 0.55-1.02 [facility] Comment on above: The validity of the calculated GFR & GFRAA in patients over 70 years has not been determined. Clinical correlation is essential. Serum or plasma urea nitroge n measurement (mass/volume)Ordered By: Sarai Sosa on 12-25-2023 Urea nitrogen [Mass/Vol] 11 mg/dL 7-18 [facility] Thin prep Papanicolaou smear with manual screeningOrdered By: Sarai Sosa on 12-25-2023 Thin prep Papanicolaou smear with manual screening 8 5-15 [facility] Absolute lymphocyte countOrd ered By: Milly Perry on 10-04-2023 Lymphocytes Auto (Unsp spec) [#/Vol] 2.63 10*3/uL 0.83-4.51 [facility] Basophil percentageOrdered B y: Milly Perry on 10-04-2023 Basophils/100 WBC (Bld) 0.5 % 0-1 [facility] Bilirubin [Mass/Vol] 0.60 mg/dL 0.20-1.00 [facility] Comment on above: For patients on eltr ombopag therapy, use of Dimension [place] TBIL is not recommended. Chloride [Moles/Vol] 110 mmol/L 98-107 [facility] Eosinophils/100 WBC (Bld) 0.1 % 0-5 [facility] Glucose [Mass/Vol] 73 mg/dL 74-106 [facility] Neutrophils (Bld) [#/Vol] 4.4 10*3/uL 2.0-7.7 [facility] Neutrophils/100 WBC (Bld) 58.4 % 47-70 [facility] Potassium [Moles/Vol] 3.7 mmol/L 3.5-5.1 [facility] Protein [Mass/Vol] 8.1 g/dL 6.4-8.2 [facility] Sodium [Moles/Vol] 138 mmol/L 136-145 [facility] WBC (Bld) [#/Vol] 7.5 10*3/uL 4.4-11.0 [facility] Blood erythrocytes count (nu mber/volume)Ordered By: Milly Perry on 10-04-2023 RBC (Bld) [#/Vol] 5.05 10*6/uL 4.2-5.4 [facility] Blood hemoglobin measurement (mass/volume)Ordered By: Milly Perry on 10-04-2023 Hemoglobin (Bld) [Mass/Vol] 15.0 g/dL 12.0-15.0 [facility] Blood lymphocytes/100 leukoc ytesOrdered By: Milly Perry on 10-04-2023 Lymphocytes/100 WBC (Bld) 34.9 % 19-41 [facility] Blood monocytes/100 leukocyt esOrdered By: Millyjanine Perry on 10-04-2023 Monocytes/100 WBC (Bld) 6.0 % 0-10 [facility] Blood platelet mean volumeOr dered By: Milly Perry on 10-04-2023 Platelet mean volume (Bld) [Entitic vol] 10.6 fL 6.2-12.0 [facility] Determination of erythrocyte mean corpuscular volume (MCV)Ordered By: Milly Perry on 10-04-2023 MCV (RBC) [Entitic vol] 90.3 fL 81-99 [facility] Hematocrit Auto (Bld) [Volum e fraction]Ordered By: Milly Perry on 10-04-2023 Hematocrit (Bld) [Volume fraction] 45.6 % 37-47 [facility] Laboratory - Chemistry and C hemistry - challengeOrdered By: Keystone [place] on 10-04-2023 ALP [Catalytic activity/Vol] 52 U/L 45-117 [facility] ALT [Catalytic activity/Vol] 10 U/L 13-56 [facility] CO2 [Moles/Vol] 22.0 mmol/L 21.0-32.0 [facility] Globulin (S) [Mass/Vol] 3.8 g/dL 2.2-4.2 [facility] Urea nitrogen/Creatinine [Mass ratio] 8.6 mg/mg 10-20 [facility] Laboratory - Hematology and Cell countsOrdered By: Millyjanine Perry on 10-04-2023 Erythrocyte distribution width (RBC) [Entitic vol] 43.2 fL 35.1-43.9 [facility] Erythrocyte distribution width (RBC) [Ratio] 13.1 % 11.6-14.6 [facility] Immature granulocytes/100 WBC (Bld) 0.100 % 0.0-0.9 [facility] Comment on above: IG% - Immature Granu locytes (promyelocytes, myelocytes and metamyelocytes) > 1% indicates that a LEFT SHIFT is Present. MCH (RBC) [Entitic mass] 29.7 pg 27.0-32.0 [facility] Nucleated RBC/100 WBC (Bld) [Ratio] 0 % 0-5 [facility] MCHC Auto (RBC) [Mass/Vol]Or dered By: Milly Perry on 10-04-2023 MCHC (RBC) [Mass/Vol] 32.9 g/dL 32-36 [facility] No Panel InformationOrdered By: Milly Perry on 10-04-2023 Estimated GFR (MDRD) Amer 86 mL/min >60 [facility] Comment on above: GFR Calc Estimated GFR (MDRD) Non-Af Amer 71 mL/min >60 [facility] Comment on above: Non- GFR Calc Platelets bldOrdered By: Ashely Perry on 10-04-2023 Platelets (Bld) [#/Vol] 316 10*3/uL 150-450 [facility] Serum or plasma albumin tori urement (mass/volume)Ordered By: Milly Perry on 10-04-2023 Albumin [Mass/Vol] 4.3 g/dL 3.2-5.0 [facility] Serum or plasma albumin/glob ulin mass ratioOrdered By: Milly Perry on 10-04-2023 Albumin/Globulin [Mass ratio] 1.1 {ratio} 0.9-2.4 [facility] Serum or plasma calcium tori urement (mass/volume)Ordered By: Milly Perry on 10-04-2023 Calcium [Mass/Vol] 9.0 mg/dL 8.5-10.1 [facility] Serum or plasma creatinine m easurement (mass/volume)Ordered By: Milly Perry on 10-04-2023 Creatinine [Mass/Vol] 0.93 mg/dL 0.55-1.02 [facility] Comment on above: The validity of the calculated GFR & GFRAA in patients over 70 years has not been determined. Clinical correlation is essential. Serum or plasma urea nitroge n measurement (mass/volume)Ordered By: Milly Perry on 10-04-2023 Urea nitrogen [Mass/Vol] 8 mg/dL 7-18 [facility] Thin prep Papanicolaou smear with manual screeningOrdered By: Milly Perry on 10-04-2023 Thin prep Papanicolaou smear with manual screening 6 U/L 15-37 [facility] Thin prep Papanicolaou smear with manual screening 6 5-15 [facility] .Auto Diffon 10-03-2023 Basophil, Absolute 0.1 10 3/mcL Normal 0.0-0.2 [facility] ([place]) Comment on above: Performed By: #### C BC, JILLIAN, NIKKI, MDW, LIP, GFR, CMP #### [address] [address] Basophils/100 WBC (Bld) 0.7 % Normal 0.0-2.5 A [facility] ([place]) Comment on above: Performed By: #### C BC, ADAGUSTIN, ANEU, MDW, LIP, GFR, CMP #### [address] [address] Eosinophil, Absolute 0.0 10 3/mcL Normal 0.0-0.4 [facility] ([place]) Comment on above: Performed By: #### C BC, JILLIAN, ANEU, MDW, LIP, GFR, CMP #### [address] [address] Eosinophils/100 WBC (Bld) 0.3 % Normal 0.0-7.0 [facility] ([place]) Comment on above: Performed By: #### C BC, JILLIAN, NIKKI, MDW, LIP, GFR, CMP #### [address] [address] Lymphocyte, Absolute 2.0 10 3/mcL Normal 0.8-3.9 [facility] ([place]) Comment on above: Performed By: #### C BC, JILLIAN, NIKKI, MDW, LIP, GFR, CMP #### [address] [address] Lymphocytes/100 WBC (Bld) 27.2 % Normal 10.0-50.0 [facility] ([place] Comment on above: Performed By: #### C BC, JILLIAN, NIKKI, MDW, LIP, GFR, CMP #### [address] [address] Monocyte, Absolute 0.5 10 3/mcL Normal 0.2-1.0 [facility] ([place]) Comment on above: Performed By: #### C JILLIAN POSEY ANEU, MDW, LIP, GFR, CMP #### [address] [address] Monocytes/100 WBC (Bld) 6.3 % Normal 1.7-13.0 A [facility] ([place] Comment on above: Performed By: #### C KALPESH, NIKKI WALSH MDW, LIP, GFR, CMP #### [address] [address] Neutrophils/100 WBC (Bld) 65.5 % Normal 37.0-80.0 [facility] ([place] Comment on above: Performed By: #### C JILLIAN POSEY ANEU, MDW, LIP, GFR, CMP #### [address] [address] .GFRon 10-03-2023 GFR 82 ml/min/1.73sqm Normal [facility] ([place] Comment on above: Result Comment: GFR Population [...] mL/min/1.73 square meters Performed By: #### C BC, NIKKI WALSH MDW, LIP, GFR, CMP #### [address] [address] GFR Non- 68 ml/min/1.73sqm Normal [facility] ([place] Comment on above: Result Comment: GFR Population [...] POSEY ANEU, MDW, LIP, GFR, CMP #### [address] [address] .MDWon 10-03-2023 Monocyte Distribution Width 18.16 Normal 0.00-20.00 [facility] ([place] Comment on above: Result Comment: For ED adult patients suspected of sepsis, MDW<=20.0 does not rule out sepsis or risk of sepsis Performed By: #### C JILLIAN POSEY ANEU, MDW, LIP, GFR, CMP #### [address] [address] .NEUABSon 10-03-2023 Neutrophil, Absolute 4.8 10 3/mcL Normal 2.9-6.2 [facility] ([place]) Comment on above: Performed By: #### C JILLIAN POSEY ANEU, MDW, LIP, GFR, CMP #### [address] [address] CBCon 10-03-2023 Erythrocyte distribution width (RBC) [Ratio] 13.9 % Normal 11.5-14.5 [facility] ([place] Comment on above: Performed By: #### C JILLIAN POSEY ANEU, MDW, LIP, GFR, CMP #### [address] [address] Hematocrit (Bld) [Volume fraction] 42.9 % Normal 37.0-47.0 [facility] ([place] Comment on above: Performed By: #### C BC, ADIFF, ANEU, MDW, LIP, GFR, CMP #### [address] [address] Hgb 14.7 G/dL Normal 12.0-16.0 [facility] ([place] Comment on above: Performed By: #### C BC, ADIFF, ANEU, MDW, LIP, GFR, CMP #### [place] [address] MCH (RBC) [Entitic mass] 29.6 pg Normal 27.0-31.2 [facility] ([place] Comment on above: Performed By: #### C BC, ADIFF, ANEU, MDW, LIP, GFR, CMP #### [place] [address] MCHC 34.2 G/dL Normal 33.0-37.0 [facility] ([place] Comment on above: Performed By: #### C BC, ADIFF, ANEU, MDW, LIP, GFR, CMP #### [place] [address] MCV (RBC) [Entitic vol] 86.6 fL Normal 80.0-94.0 A [facility] ([place] Comment on above: Performed By: #### C BC, ADIFF, ANEU, MDW, LIP, GFR, CMP #### [place] [address] Platelet 286 10 3/mcL Normal 130-400 [facility] ([place] Comment on above: Performed By: #### C BC, ADIFF, ANEU, MDW, LIP, GFR, CMP #### [address] [address] Platelet mean volume (Bld) [Entitic vol] 8.6 fL Normal 7.4-10.4 [facility] ([place] Comment on above: Performed By: #### C BC, ADIFF, ANEU, MDW, LIP, GFR, CMP #### [place] [address] RBC 4.96 10 6/mcL Normal 4.20-5.40 [facility] ([place] Comment on above: Performed By: #### C KALPESH, JILLIAN, NIKKI, MDW, LIP, GFR, CMP #### [address] [address] WBC 7.3 10 3/mcL Normal 4.6-10.8 [facility] ([place] Comment on above: Performed By: #### C BC, JILLIAN, NIKKI, MDW, LIP, GFR, CMP #### [address] [address] CMPon 10-03-2023 ALT [Catalytic activity/Vol] 10 U/L Low 14-59 [facility] ([place] Comment on above: Performed By: #### C KALPESH, JILLIAN, NIKKI, MDW, LIP, GFR, CMP #### [address] [address] Albumin Level 4.3 G/dL Normal 3.5-5.0 [facility] ([place] Comment on above: Performed By: #### C KALPESH, JILLIAN, NIKKI, MDW, LIP, GFR, CMP #### [address] [address] Albumin/Globulin [Mass ratio] 1.3 {ratio} Normal 1.1-2.5 [facility] ([place] Comment on above: Performed By: #### C KALPESH, JILLIAN, NIKKI, MDW, LIP, GFR, CMP #### [address] [address] ALP [Catalytic activity/Vol] 59 U/L Normal 40-135 [facility] ([place] Comment on above: Performed By: #### C KALPESH, JILLIAN, NIKKI, MDW, LIP, GFR, CMP #### [address] [address] AST [Catalytic activity/Vol] 7 U/L Low 10-40 [facility] ([place] Comment on above: Performed By: #### C BC, JILLIAN, NIKKI, MDW, LIP, GFR, CMP #### [address] [address] Bili Total 0.6 mg/dL Normal 0.2-1.0 [facility] ([place] Comment on above: Result Comment: Use of this assay is not recommended for patients undergoing treatment with eltrombopag due to the potential for falsely elevated results. Performed By: #### C BC, ADAGUSTIN, NIKKI, MDW, LIP, GFR, CMP #### [address] [address] BUN/Creatinine Ratio 12 ratio Normal 7-27 [facility] ([place]) Comment on above: Performed By: #### C BC, JILLIAN, NIKKI, MDW, LIP, GFR, CMP #### [address] [address] Calcium [Mass/Vol] 9.1 mg/dL Normal 8.4-10.2 [facility] ([place]) Comment on above: Performed By: #### C KALPESH, JILLIAN, NIKKI, MDW, LIP, GFR, CMP #### [address] [address] Chloride [Moles/Vol] 103 mmol/L Normal 98-107 [facility] ([place]) Comment on above: Performed By: #### C BC, JILLIAN, NIKKI, MDW, LIP, GFR, CMP #### [address] [address] CO2 [Moles/Vol] 23 mmol/L Normal 22-29 [facility] ([place] Comment on above: Performed By: #### C BC, JILLIAN, NIKKI, MDW, LIP, GFR, CMP #### [address] [address] Creatinine [Mass/Vol] 0.92 mg/dL Normal 0.55-1.02 [facility] ([place]) Comment on above: Performed By: #### C BC, JILLIAN, NIKKI, MDW, LIP, GFR, CMP #### [address] [address] Electrolyte Balance 10.0 mEq/L Normal 4.0-15.0 [facility] ([place]) Comment on above: Performed By: #### C KALPESH, JILLIAN, NIKKI, MDW, LIP, GFR, CMP #### [address] [address] Globulin 3.3 G/dL Normal [facility] ([place]) Comment on above: Performed By: #### C BC, JILLIAN, NIKKI, MDW, LIP, GFR, CMP #### [address] [address] Glucose [Mass/Vol] 92 mg/dL Normal 70-105 [facility] ([place]) Comment on above: Performed By: #### C KALPESH, JILLIAN, NIKKI, MDW, LIP, GFR, CMP #### [address] [address] Potassium [Moles/Vol] 4.5 mmol/L Normal 3.5-5.1 [facility] ([place]) Comment on above: Performed By: #### C KALPESH, JILLIAN, NIKKI, MDW, LIP, GFR, CMP #### [address] [address] Sodium [Moles/Vol] 136 mmol/L Normal 136-145 [facility] ([place]) Comment on above: Performed By: #### C BC, JILLIAN, NIKKI, MDW, LIP, GFR, CMP #### [address] [address] Total Protein 7.6 G/dL Normal 6.4-8.2 [facility] ([place] Comment on above: Performed By: #### C BC, JILLIAN, NIKKI, MDW, LIP, GFR, CMP #### [address] [address] Urea nitrogen [Mass/Vol] 11 mg/dL Normal 7-18 [facility] ([place] Comment on above: Performed By: #### C BC, JILLIAN, ANEU, MDW, LIP, GFR, CMP #### [address] [address] LABORATORYOrdered By: SYSTEM SYSTEM on 10-03-2023 Albumin [...] (Bld) [#/Vol] 4.96 106/mcL Normal 4.20 - 5.4 0 10^6/mcL AO Workflow SS Sodium [Moles/Vol] 136 [...] 10-03-2023 Lipase Level 31 U/L Normal 16-77 [facility] ([place] Comment on above: Performed By: #### C BC, JILLIAN, ANEU, MDW, LIP, GFR, CMP #### [address] [address] Basophil percentageOrdered B y: Sarai Sosa on 09-05-2023 Basophil percentage 2.8 mg/dL 2.5-4.9 [facility] Chloride [Moles/Vol] 110 mmol/L 98-107 [facility] Glucose [Mass/Vol] 92 mg/dL 74-106 [facility] Potassium [Moles/Vol] 3.6 mmol/L 3.5-5.1 [facility] Sodium [Moles/Vol] 142 mmol/L 136-145 [facility] Bilirubin Test strip Ql (U)O rdered By: Sarai Sosa on 09-05-2023 Bilirubin Ql (U) Negative Negative [facility] Ketones Test strip Ql (U)Ord ered By: Sarai Sosa on 09-05-2023 Ketones Ql (U) Negative Negative [facility] Laboratory - Chemistry and C hemistry - challengeOrdered By: Sarai Sosa on 09-05-2023 CO2 [Moles/Vol] 26.0 mmol/L 21.0-32.0 [facility] Free T4 [Mass/Vol] 0.92 ng/dL 0.76-1.46 [facility] Urea nitrogen/Creatinine [Mass ratio] 8.2 mg/mg 10-20 [facility] Nitrite Test strip Ql (U)Ord ered By: Sarai Sosa on 09-05-2023 Nitrite Ql (U) Negative Negative [facility] No Panel InformationOrdered By: Sarai Sosa on 09-05-2023 Estimated GFR (MDRD) Amer 114 mL/min >60 [facility] Comment on above: GFR Calc Estimated GFR (MDRD) Non-Af Amer 94 mL/min >60 [facility] Comment on above: Non- GFR Calc Thyroid Stimulating Hormone (TSH) 2.21 uIU/mL 0.358-3.74 [facility] Protein Test strip Ql (U)Ord ered By: Sarai Sosa on 09-05-2023 Protein Ql (U) Negative Negative [facility] Serum or plasma albumin tori urement (mass/volume)Ordered By: Sarai Sosa on 09-05-2023 Albumin [Mass/Vol] 3.9 g/dL 3.2-5.0 [facility] Serum or plasma calcium tori urement (mass/volume)Ordered By: Sarai Sosa on 09-05-2023 Calcium [Mass/Vol] 8.5 mg/dL 8.5-10.1 [facility] Serum or plasma creatinine m easurement (mass/volume)Ordered By: Sarai Sosa on 09-05-2023 Creatinine [Mass/Vol] 0.73 mg/dL 0.55-1.02 [facility] Comment on above: The validity of the calculated GFR & GFRAA in patients over 70 years has not been determined. Clinical correlation is essential. Serum or plasma urea nitroge n measurement (mass/volume)Ordered By: Sarai Sosa on 09-05-2023 Urea nitrogen [Mass/Vol] 6 mg/dL 7-18 [facility] Urine blood detectionOrdered By: Sarai Sosa on 09-05-2023 RBC Ql (U) Negative Negative [facility] Urine clarityOrdered By: Florecita Sosa on 09-05-2023 Clarity (U) Clear Clear [facility] Urine color determinationOrd ered By: Sarai Sosa on 09-05-2023 Color (U) Yellow Yellow [facility] Urine glucose detectionOrder ed By: Sarai Sosa on 09-05-2023 Glucose Ql (U) Normal mg/dl Normal [facility] Urine leukocyte esterase det ection by dipstickOrdered By: Sarai Sosa on 09-05-2023 Leukocyte esterase Test strip Ql (U) 25 /ul Negative [facility] Urine pHOrdered By: Ivette Sosa on 09-05-2023 pH (U) 7.0 [pH] 5.0 - 8.0 [facility] Urine specific gravity measu rementOrdered By: Sarai Sosa on 09-05-2023 Specific gravity (U) [Rel density] 1.020 1.002-1.030 [facility] Urobilinogen Auto test strip Ql (U)Ordered By: Sarai Sosa on 09-05-2023 Urobilinogen Ql (U) Normal mg/dl Normal [facility] Basophil percentageOrdered B y: Dr. Sosa on 01-11-2023 Chloride [Moles/Vol] 107 mmol/L 98-107 [facility] Glucose [Mass/Vol] 83 mg/dL 74-106 [facility] Potassium [Moles/Vol] 4.5 mmol/L 3.5-5.1 [facility] Sodium [Moles/Vol] 138 mmol/L 136-145 [facility] Laboratory - Chemistry and C hemistry - challengeOrdered By: Dr. Sosa on 01-11-2023 CO2 [Moles/Vol] 22.0 mmol/L 21.0-32.0 [facility] Urea nitrogen/Creatinine [Mass ratio] 8.3 mg/mg 10-20 [facility] No Panel InformationOrdered By: Dr. Sosa on 01-11-2023 Estimated GFR (MDRD) Amer 97 mL/min >60 [facility] Comment on above: GFR Calc Estimated GFR (MDRD) Non-Af Amer 80 mL/min >60 [facility] Comment on above: Non- GFR Calc Serum or plasma calcium tori urement (mass/volume)Ordered By: Dr. Sosa on 01-11-2023 Calcium [Mass/Vol] 9.9 mg/dL 8.5-10.1 [facility] Serum or plasma creatinine m easurement (mass/volume)Ordered By: Dr. Sosa on 01-11-2023 Creatinine [Mass/Vol] 0.84 mg/dL 0.55-1.02 [facility] Comment on above: The validity of the calculated GFR & GFRAA in patients over 70 years has not been determined. Clinical correlation is essential. Serum or plasma urea nitroge n measurement (mass/volume)Ordered By: Dr. Sosa on 01-11-2023 Urea nitrogen [Mass/Vol] 7 mg/dL 7-18 [facility] Thin prep Papanicolaou smear with manual screeningOrdered By: Dr. Sosa on 01-11-2023 Thin prep Papanicolaou smear with manual screening 9 5-15 [facility] CNOVon 12-30-2022 CNOV Office Visit (UCWSTR ) MALISSA ELLIOTT ([id number]) 1985 F Date Time Provider Department 12/30/22 9:15 AM JIM PLAZAWSTR During your visit today, we recorded the [...] PAST MEDICAL HISTORY Diagnosis Date Hypertension Overweight(278.02) Pkfmq-Jlcakisqf-Sfkyj (WPW) pattern MEDICATIONS: Current Outpatient Medications Medication [...] 25 mg by mouth twice daily. - triamterene-hydroCHLO ROthiazide (MAXZIDE-25) 37.5-25 mg per tablet (Discontinued) Take 1 tablet by mouth once daily. - flecainide (TAMBOCOR) 50 mg tablet (Discontinued) Take 50 mg by mouth q 12 HR. Encounter Status:Closed by JIM PLAZA on 12/30/22 [facility] CHEST 2 VIEWon 09-21-2022 CHEST 2 VIEW *FINAL Date of Service: 09/21/2022 07:24 Adm #: [id number] Reading Dr:BRIANNE Garza Dr: BRIANNE RICKS PROCEDURE: CHEST 2 VIEW - WXR 0020 REASON FOR EXAM: 1 st rib resection RESULT: Patient Name: MALISSA ELLIOTT STUDY: CHEST 2 VIEW 09/21/2022 7:24 am INDICATION: Status post resection of left 1st rib COMPARISON: 09/20/2022 ACCESSION NUMBER(S): [id number] ORDERING CLINICIAN: DANY SPENCE TECHNIQUE: PA and [...] left basilar platelike atelectasis identified. Dictation workstation: [id number] Original Interpreting Physician: BRIANNE RICKS M.D. Original Transcribed by/Date: MMODAL Sep 20 2022 3:52P Original Electronically Signed by/Date: BRIANNE RICKS M.D. Sep 21 2022 10:19A Addendum Interpreting Physician: Addendum Transcribed by/Date: NO ADDENDUM Addendum Electronically Signed by/Date: [facility] No Panel Informationon 09-21 XR Chest 2 Views (PA and lat) (Reference Range: not available) *FINAL Date of Service: 09/21/2022 07:24 Adm #: [id number] Reading Dr:BRIANNE Garza Dr: BRIANNE RICKS PROCEDURE: CHEST 2 VIEW - WXR 0020 REASON FOR EXAM: 1 st rib resection RESULT: Patient Name: MALISSA ELLIOTT STUDY: CHEST 2 VIEW 09/21/2022 7:24 am INDICATION: Status post resection of left 1st rib COMPARISON: 09/20/2022 ACCESSION NUMBER(S): [id number] ORDERING CLINICIAN: DANY SPENCE TECHNIQUE: PA and [...] left basilar platelike atelectasis identified. Dictation workstation: [id number] Original Interpreting Physician: BRIANNE RICKS M.D. Original Transcribed by/Date: [facility] Sep 20 2022 3:52P Original Electronically Signed by/Date: BRIANNE RICKS M.D. Sep 21 2022 10:19A Addendum Interpreting Physician: Addendum Transcribed by/Date: NO ADDENDUM Addendum Electronically Signed by/Date: [facility] CHEST PORTABLEon 09-20-2022 CHEST PORTABLE *FINAL Date of Service: 09/20/2022 16:43 Adm #: [id number] Reading Dr:CHARLES HU Signoff Dr: CHARLES HU PROCEDURE: CHEST PORTABLE - WXR 0018 REASON FOR EXAM: first rib resection RESULT: Patient Name: MALISSA ELLIOTT STUDY: CHEST PORTABLE; 09/20/2022 4:43 pm INDICATION: CLINICAL INFORMATION: Left first rib resection. COMPARISON: None ACCESSION NUMBER(S): [id number] ORDERING CLINICIAN: DANY SPENCE TECHNIQUE: Portable chest [...] on 09/21/2022 at 0800 hours. Dictation workstation: [id number] Original Interpreting Physician: CHARLES HU M.D. Original Transcribed by/Date: [facility] Sep 20 2022 4:16P Original Electronically Signed by/Date: CHARLES HU M.D. Sep 20 2022 9:54P Addendum Interpreting Physician: Addendum Transcribed by/Date: NO ADDENDUM Addendum Electronically Signed by/Date: [facility] No Panel Informationon 09-20 XR Chest Portable (1view) (Reference Range: not available) *FINAL Date of Service: 09/20/2022 16:43 Adm #: [id number] Reading Dr:CHARLES HU Signoff Dr: CHARLES HU PROCEDURE: CHEST PORTABLE - WXR 0018 REASON FOR EXAM: first rib resection RESULT: Patient Name: MALISSA ELLIOTT STUDY: CHEST PORTABLE; 09/20/2022 4:43 pm INDICATION: CLINICAL INFORMATION: Left first rib resection. COMPARISON: None ACCESSION NUMBER(S): [id number] ORDERING CLINICIAN: DANY SPENCE TECHNIQUE: Portable chest [...] on 09/21/2022 at 0800 hours. Dictation workstation: [id number] Original Interpreting Physician: CHARLES HU M.D. Original Transcribed by/Date: [facility] Sep 20 2022 4:16P Original Electronically Signed by/Date: CHARLES HU M.D. Sep 20 2022 9:54P Addendum Interpreting Physician: Addendum Transcribed by/Date: NO ADDENDUM Addendum Electronically Signed by/Date: [facility] Patient Name: MALISSA ELLIOTT MR#: [id number] Specimen #[id number] Source: 1: 1st rib Gross Description Received [...] Electronically Signed Out By KELLE VASQUES M.D. Normal [facility] Comment on above: Performed By: #### 8 217 #### [address] [address] BASIC METABOLIC PANELon 11-1 Anion gap [Moles/Vol] 14 mmol/L Normal 0-19 [facility] Comment on above: Performed By: #### B MP #### [facility] [address] [address] Calcium [Mass/Vol] 9.5 mg/dL Normal 8.5-10.4 [facility] Comment on above: Performed By: #### B MP #### [facility] [address] [address] [place] [address] Chloride [Moles/Vol] 104 mmol/L Normal 97-107 [facility] Comment on above: Performed By: #### B MP #### [facility] [address] [address] CO2 [Moles/Vol] 22 mmol/L Low 24-31 [facility] Comment on above: Performed By: #### B MP #### [facility] [address] [place] [address] Creatinine [Mass/Vol] 0.8 mg/dL Normal 0.4-1.6 [facility] Comment on above: Performed By: #### B MP #### [facility] [address] [address] [place] [address] ESTIMATED GFR 97 mL/min/1.73 m2 Normal [facility] Comment on above: Result Comment: CALCULATIONS OF ESTIMATED GFR ARE PERFORMED USING THE 2020 CKD-EPI STUDY REFIT EQUATION WITHOUT THE RACE VARIABLE FOR THE IDMS-TRACEABLE CREATININE METHODS. https://jasn.asnjournals.org/content/early/ASN.2020 005416 Performed at [address] [place] [address] Performed By: #### B MP #### [facility] [address] [address] [place] [address] Glucose [Mass/Vol] 77 mg/dL Normal 65-99 [facility] Comment on above: Performed By: #### B MP #### [address] [address] [place] [address] Potassium [Moles/Vol] 4.3 mmol/L Normal 3.4-5.1 [facility] Comment on above: Performed By: #### B MP #### [facility] [address] [place] [address] Sodium [Moles/Vol] 140 mmol/L Normal 133-145 [facility] Comment on above: Performed By: #### B MP #### [facility] [address] [place] [address] Urea nitrogen [Mass/Vol] 7 mg/dL Low 8-25 [facility] Comment on above: Performed By: #### B MP #### [facility] [address] [address] [place] [address] Urea nitrogen/Creatinine [Mass ratio] 8.8 mg/mg Normal 8-21 [facility] Comment on above: Performed By: #### B MP #### [facility] [address] [address] [address] [place] [address] CBC with Diffon 09-18-2022 AB IMMATURE NEUT 0.04 K/UL Normal 0.0-0.1 [facility] Comment on above: Performed By: #### C BCD #### [facility] [address] [address] [address] [place] [address] ABS BASO 0.03 K/UL Normal 0.00-0.22 [facility] Comment on above: Performed By: #### C BCD #### [facility] [address] [address] [address] [place] [address] ABS EOS 0.02 K/UL Normal 0-0.45 [facility] Comment on above: Performed By: #### C BCD #### [facility] [address] [address] [address] [place] [address] ABS NEUTROPHILS 9.45 K/UL High 1.8-7.7 [facility] Comment on above: Performed By: #### C BCD #### [facility] [address] [address] [place] [address] ABS.NEUT.CALCULATED 9.45 K/UL Normal [facility] Comment on above: Result Comment: [facility] [address] [address] [facility] [address] Performed By: #### C BCD #### [address] [place] [address] Basophils/100 WBC (Bld) 0.20 % Normal 0-1 L [facility] Comment on above: Performed By: #### C BCD #### [facility] [address] [address] [place] [address] DIFF TYPE AUTO DIFF Normal [facility] Comment on above: Performed By: #### C BCD #### [facility] [address] [address] [place] [address] Eosinophils/100 WBC (Bld) 0.20 % Normal 0-3 [facility] Comment on above: Performed By: #### C BCD #### [facility] [address] [address] [place] [address] Erythrocyte distribution width (RBC) [Ratio] 13.5 % Normal 11.7-15.0 [facility] Comment on above: Performed By: #### C BCD #### [facility] [address] [address] [place] [address] Hematocrit (Bld) [Volume fraction] 46.3 % High 36-44 [facility] Comment on above: Performed By: #### C BCD #### [facility] [address] [address] [place] [address] Hemoglobin (Bld) [Mass/Vol] 15.4 g/dL High 12.0-15.0 [facility] Comment on above: Performed By: #### C BCD #### [facility] [address] [address] [address] [place] [address] Lymphocytes (Bld) [#/Vol] 2.34 10*3/uL Normal 1.2-3.2 [facility] Comment on above: Performed By: #### C BCD #### [address] [address] [address] [place] [address] Lymphocytes/100 WBC (Bld) 18.50 % Low 20-40 [facility] Comment on above: Performed By: #### C BCD #### [facility] [address] [address] [place] [place] [address] MCH (RBC) [Entitic mass] 30.0 pg Normal 26-34 [facility] Comment on above: Performed By: #### C BCD #### [address] [address] [place] [place] [address] MCHC 33.3 % Normal 31-37 [facility] Comment on above: Performed By: #### C BCD #### [facility] [address] [address] [address] [place] [address] MCV (RBC) [Entitic vol] 90.3 fL Normal 80-100 L [facility] Comment on above: Performed By: #### C BCD #### [facility] [address] [address] [address] [place] [address] MEAN PLT VOL 10.9 CU Normal 7.0-12.6 [facility] Comment on above: Performed By: #### C BCD #### [facility] [address] [address] [place] [place] [address] Monocytes (Bld) [#/Vol] 0.80 10*3/uL Normal 0-0.8 [facility] Comment on above: Performed By: #### C BCD #### [facility] [address] [place] [address] Monocytes/100 WBC (Bld) 6.30 % Normal 0-8 L [facility] Comment on above: Performed By: #### C BCD #### [facility] [address] [place] [address] Neutrophils/100 WBC (Bld) 0.30 % Normal 0.0-1.0 [facility] Comment on above: Performed By: #### C BCD #### [facility] [address] [place] [address] Neutrophils/100 WBC (Bld) 74.50 % High 50-70 [facility] Comment on above: Performed By: #### C BCD #### [facility] [address] [place] [address] NRBC'S 0 /100 WBC Normal 0 [facility] Comment on above: Performed By: #### C BCD #### [facility] [address] [place] [address] Platelets (Bld) [#/Vol] 296 10*3/uL Normal 150-450 [facility] Comment on above: Performed By: #### C BCD #### [facility] [address] [address] [place] [address] RBC (Bld) [#/Vol] 5.13 10*6/uL High 4.0-4.9 [facility] Comment on above: Performed By: #### C BCD #### [facility] [address] [place] [address] RDW-SD 45.3 FL Normal 37.0-54.0 [facility] Comment on above: Performed By: #### C BCD #### [facility] [address] [place] [address] WBC (Bld) [#/Vol] 12.7 10*3/uL High 4.5-11.0 [facility] Comment on above: Performed By: #### C BCD #### [address] [address] EKGon 09-18-2022 Electrocardiogram EKG Ventricular Rate : 65 BPM Atrial Rate : 65 BPM P-R Interval : 126 ms QRS Duration : 78 ms Q-T Interval : 422 ms QTC Calculation(Bazett) : 438 ms Calculated P [place] : 74 degrees Calculated R [place] : 12 degrees Calculated T [place] : 45 degrees Diagnosis:Normal sinus rhythm Normal ECG No previous ECGs available Confirmed by JAMEL COFFMAN ([id number]) on 09/18/2022 6:12:52 PM [facility] TYPE AND SCREENon 09-18-2022 TYPE AND SCREEN BLOOD COMPONENT TYPE - RED CELL GROUP UNITS ORDERED - 0 SPECIMEN EXPIRATION - 09/23/2022 ABO/RH(D) - O POSITIVE ANTIBODY SCREEN - NEGATIVE ARM BAND NUMBER - [id number] SURGERY DATE - 09/20/2022 MANLIUS TEST ORDERED - TYPE AND SCREEN PT TRANSFUSION HISTORY - BLOOD BANK RECORD SEARCH COMPLETED NO PREVIOUS RECORD NO PREVIOUS TRANSFUSIONS IN LIFETIME Performed at [address] Comment on above: Performed By: #### [facility] #### [address] [address] Progress Noteon 07-19-2022 Piano Builder Authentication Interface Message Text [facility] New Patient Note Reason [...] reports she has been referred from her vehicle check in clerk who has been following her for a long-standing history of blood hypertension due to 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 I do not have aldosterone level or arginine activity at this point. Malissa reports her vehicle check in clerk is considering Juan J syndrome and has been managing her with Chlorthiazide and amiloride. She has Hx of using different medications for high blood pressure that did not lead to a good control. Her blood pressure has been better controlled with the above two medications but she still needed frequent increase in dose to achieve a better control. Malissa's blood pressure today is high at 156/112. 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 Surgery: Reviewed No past surgical history on file. HYSTERECTOMY SUBTOTAL ABDOMINAL LAPAROSCOPIC TUBAL LIGATION Social History: Tobacco Use Smoking status: Occasionally. 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 Bas (more content not included)... Normal [facility] Basophil percentageon 2021 Chloride [Moles/Vol] 110 mmol/L 98-107 [facility] Work Phone: Glucose [Mass/Vol] 97 mg/dL 74-106 [facility] Work Phone: Potassium [Moles/Vol] 3.7 mmol/L 3.5-5.1 [facility] Work Phone: Sodium [Moles/Vol] 139 mmol/L 136-145 [facility] Work Phone: Laboratory - Chemistry and C hemistry - challengeon 04-21-2022 CO2 [Moles/Vol] 22.0 mmol/L 21.0-32.0 [facility] Work Phone: Urea nitrogen/Creatinine [Mass ratio] 11.5 mg/mg 10-20 [facility] Work Phone: No Panel Informationon 04-21 Estimated GFR (MDRD) Amer 106 mL/min >60 [facility] Work Phone: Comment on above: GFR Calc Estimated GFR (MDRD) Non-Af Amer 88 mL/min >60 [facility] Work Phone: Comment on above: Non- GFR Calc Serum or plasma calcium tori urement (mass/volume)on 04-21-2022 Calcium [Mass/Vol] 8.8 mg/dL 8.5-10.1 [facility] Work Phone: Serum or plasma creatinine m easurement (mass/volume)on 04-21-2022 Creatinine [Mass/Vol] 0.78 mg/dL 0.55-1.02 [facility] Work Phone: Comment on above: The validity of the calculated GFR & GFRAA in patients over 70 years has not been determined. Clinical correlation is essential. Serum or plasma urea nitroge n measurement (mass/volume)on 04-21-2022 Urea nitrogen [Mass/Vol] 9 mg/dL 7-18 [facility] Work Phone: Thin prep Papanicolaou smear with manual screeningon 04-21-2022 Thin prep Papanicolaou smear with manual screening 7 5-15 [facility] Work Phone: Basophil percentageon 2021 Chloride [Moles/Vol] 113 mmol/L 98-107 [facility] Work Phone: Glucose [Mass/Vol] 92 mg/dL 74-106 [facility] Work Phone: Potassium [Moles/Vol] 3.6 mmol/L 3.5-5.1 [facility] Work Phone: Sodium [Moles/Vol] 139 mmol/L 136-145 [facility] Work Phone: Laboratory - Chemistry and C hemistry - challengeon 03-26-2022 CO2 [Moles/Vol] 19.0 mmol/L 21.0-32.0 [facility] Work Phone: Urea nitrogen/Creatinine [Mass ratio] 7.9 mg/mg 10-20 [facility] Work Phone: No Panel Informationon 03-26 Estimated Creatinine Clearance Calc 85.12 ml/min [facility] Work Phone: Estimated GFR (MDRD) Amer 92 mL/min >60 [facility] Work Phone: Comment on above: GFR Calc Estimated GFR (MDRD) Non-Af Amer 76 mL/min >60 [facility] Work Phone: Comment on above: Non- GFR Calc Serum or plasma calcium tori urement (mass/volume)on 03-26-2022 Calcium [Mass/Vol] 8.8 mg/dL 8.5-10.1 [facility] Work Phone: Serum or plasma creatinine m easurement (mass/volume)on 03-26-2022 Creatinine [Mass/Vol] 0.88 mg/dL 0.55-1.02 [facility] Work Phone: Comment on above: The validity of the calculated GFR & GFRAA in patients over 70 years has not been determined. Clinical correlation is essential. Serum or plasma urea nitroge n measurement (mass/volume)on 03-26-2022 Urea nitrogen [Mass/Vol] 7 mg/dL 7-18 [facility] Work Phone: Thin prep Papanicolaou smear with manual screeningon 03-26-2022 Thin prep Papanicolaou smear with manual screening 7 5-15 [facility] Work Phone: Basophil percentageon 2021 Basophil percentage 3.4 mg/dL 2.5-4.9 [facility] Work Phone: Chloride [Moles/Vol] 110 mmol/L 98-107 [facility] Work Phone: Glucose [Mass/Vol] 90 mg/dL 74-106 [facility] Work Phone: Potassium [Moles/Vol] 4.2 mmol/L 3.5-5.1 [facility] Work Phone: Sodium [Moles/Vol] 139 mmol/L 136-145 [facility] Work Phone: Laboratory - Chemistry and C hemistry - challengeon 03-16-2022 CO2 [Moles/Vol] 24.0 mmol/L 21.0-32.0 [facility] Work Phone: Urea nitrogen/Creatinine [Mass ratio] 13.6 mg/mg 10-20 [facility] Work Phone: No Panel Informationon 03-16 Estimated GFR (MDRD) Amer 92 mL/min >60 [facility] Work Phone: Comment on above: GFR Calc Estimated GFR (MDRD) Non-Af Amer 76 mL/min >60 [facility] Work Phone: Comment on above: Non- GFR Calc Serum or plasma albumin tori urement (mass/volume)on 03-16-2022 Albumin [Mass/Vol] 4.0 g/dL 3.2-5.0 [facility] Work Phone: Serum or plasma calcium tori urement (mass/volume)on 03-16-2022 Calcium [Mass/Vol] 9.3 mg/dL 8.5-10.1 [facility] Work Phone: Serum or plasma creatinine m easurement (mass/volume)on 03-16-2022 Creatinine [Mass/Vol] 0.88 mg/dL 0.55-1.02 [facility] Work Phone: Comment on above: The validity of the calculated GFR & GFRAA in patients over 70 years has not been determined. Clinical correlation is essential. Serum or plasma urea nitroge n measurement (mass/volume)on 03-16-2022 Urea nitrogen [Mass/Vol] 12 mg/dL 7-18 [facility] Work Phone: Basophil percentageon 2021 Chloride [Moles/Vol] 108 mmol/L 98-107 [facility] Work Phone: Glucose [Mass/Vol] 74 mg/dL 74-106 [facility] Work Phone: Potassium [Moles/Vol] 4.1 mmol/L 3.5-5.1 [facility] Work Phone: Comment on above: Moderate Hemolysis, Result may be falsely increased. Sodium [Moles/Vol] 137 mmol/L 136-145 [facility] Work Phone: Laboratory - Chemistry and C hemistry - challengeon 11-24-2021 CO2 [Moles/Vol] 23.0 mmol/L 21.0-32.0 [facility] Work Phone: Urea nitrogen/Creatinine [Mass ratio] 9.3 mg/mg - [facility] Work Phone: [phone] No Panel Informationon 11-24 Estimated GFR (MDRD) Amer 96 mL/min >60 [facility] Work Phone: Comment on above: GFR Calc Estimated GFR (MDRD) Non-Af Amer 79 mL/min >60 [facility] Work Phone: Comment on above: Non- GFR Calc Serum or plasma calcium tori urement (mass/volume)on 11-24-2021 Calcium [Mass/Vol] 8.9 mg/dL 8.5-10.1 [facility] Work Phone: Serum or plasma creatinine m easurement (mass/volume)on 11-24-2021 Creatinine [Mass/Vol] 0.86 mg/dL 0.55-1.02 [facility] Work Phone: Comment on above: The validity of the calculated GFR & GFRAA in patients over 70 years has not been determined. Clinical correlation is essential. Serum or plasma urea nitroge n measurement (mass/volume)on 11-24-2021 Urea nitrogen [Mass/Vol] 8 mg/dL 18 [facility] Work Phone: Thin prep Papanicolaou smear with manual screeningon 11-24-2021 Thin prep Papanicolaou smear with manual screening 6 -15 [facility] Work Phone: ECHO Complete 2D W Doppler W ColorOrdered By: Omid Sky on 03-02-2021 TRANSTHORACIC ECHOCARDIOGRAM PATIENT: Malissa Elliott STUDY DATE: 03/02/2021 : 1985 AGE: 35 HT/WT: 165.1 cm (65 81.7 kg in) (179.6 lb) GENDER: F BP: 138 / 94 LOCATION: [facility] PATIENT Outpatient [facility] STATUS: *ORDERING PHYSICIAN: * Omid Sky MD *READING PHYSICIAN: * Lee *AUTOMOBILE SALESMAN: * Sharon Salazar MD [facility] -------- INDICATIONS: HYPERTENSIVE HEART DISEASE WITHOUT FAILURE, HX VT AND ARRHYTHMIA. -------- CONCLUSIONS SUMMARY: 1. Left ventricle: The cavity [...] aneurysmal dilatation. 3. No significant valve disease. -------- STUDY DATA: Complete transthoracic echocardiogram. Procedure: Image [...] Routine. Patient status: Outpatient. ECG RHYTHM: NSR -------- FINDINGS LEFT VENTRICLE: The cavity size is [...] collapses by greater than 50% with inspiration. -------- Measurements Value Reference Aortic root ID 3.2 [...] LV ejection fraction, (more content not included)... [employer] Work Phone: [place], [employer] [facility] Cardiology Results From [facility] - 03/02/2021 4:26 PM EDT TRANSTHORACIC ECHOCARDIOGRAM PATIENT: Malissa Elliott STUDY DATE: 03/02/2021 : 1985 AGE: 35 HT/WT: 165.1 cm (65 81.7 kg in) (179.6 lb) GENDER: F BP: 138 / 94 LOCATION: [facility] PATIENT Outpatient [facility] STATUS: *ORDERING PHYSICIAN: * Omid Sky MD *READING PHYSICIAN: * Lee *AUTOMOBILE SALESMAN: * Sharon Salazar MD [facility] -------- INDICATIONS: HYPERTENSIVE HEART DISEASE WITHOUT FAILURE, HX VT AND ARRHYTHMIA. -------- CONCLUSIONS SUMMARY: 1. Left ventricle: The cavity [...] aneurysmal dilatation. 3. No significant valve disease. -------- STUDY DATA: Complete transthoracic echocardiogram. Procedure: Image [...] Routine. Patient status: Outpatient. ECG RHYTHM: NSR -------- FINDINGS LEFT VENTRICLE: The cavity size is [...] collapses by greater than 50% with inspiration. -------- Measurements Value Reference Aortic root ID 3.2 [...] Reference Mitral E-wave pea (more content not includedCompetitive Power Ventures... [employer] Work Phone: Echo Complete w/wo Contrasto n 03-02-2021 Echo Complete w/wo Contrast Patient Name: MALISSA ELLIOTT Ultrasound ACCESSION EXAM DATE/TIME PROCEDURE ORDERING PROVIDER [id number] 03/02/2021 15:46 EDT Echo Complete w/wo OMID SKY Reason For Exam (Echo Complete w/wo Contrast) Hypertensive heart disease without heart failure Report TRANSTHORACIC ECHOCARDIOGRAM PATIENT: Malissa Elliott STUDY DATE: 03/02/2021 : 1985 AGE: 35 HT/WT: 165.1 cm (65 81.7 kg in) (179.6 lb) GENDER: F BP: 138 / 94 LOCATION: [facility] PATIENT Outpatient [facility] STATUS: *ORDERING PHYSICIAN: * Omid Syk MD *READING PHYSICIAN: * Lee *AUTOMOBILE SALESMAN: * Sharon Salazar MD [facility] -------- INDICATIONS: HYPERTENSIVE HEART DISEASE WITHOUT FAILURE, HX VT AND ARRHYTHMIA. -------- CONCLUSIONS SUMMARY: 1. Left ventricle: The cavity [...] aneurysmal dilatation. 3. No significant valve disease. -------- STUDY DATA: Complete transthoracic echocardiogram. Procedure: Image [...] Routine. Patient status: Outpatient. ECG RHYTHM: NSR -------- Ultrasound Report FINDINGS LEFT VENTRICLE: The cavity [...] collapses by greater than 50% with inspiration. -------- Measurements Value Reference Aortic root ID 3.2 [...] Stroke volu (more content not included)... Normal [facility] Vital Signs Date Time Vital Sign Value Performing Clinician Facility 07-15-2025 10:18-0400 Body temperature 98.2 [degF] Dr. Marco A Marie MD Work Phone: [facility] 07-15-2025 10:18-0400 Diastolic blood pressure 94 mm[Hg] Dr. Marco A Marie MD Work Phone: [phone] [address] 07-15-2025 10:18-0400 Heart rate 82 /min Dr. Marco A Marie MD Work Phone: [phone] [address] [place] [address] 07-15-2025 10:18-0400 Respiratory rate 14 /min Dr. Marco A Marie MD Work Phone: 0(530)[phone] [place] [address] 07-15-2025 10:18-0400 SaO2% (BldA) [Mass fraction] 100 % Dr. Marco A Marie MD Work Phone: [facility] 07-15-2025 10:18-0400 Systolic blood pressure 128 mm[Hg] Dr. Marco A Marie MD Work Phone: 6(179)[phone] [place] [address] 07-15-2025 07:47-0400 Body height 167.[address] Marco A Marie MD Work Phone: [facility] 07-15-2025 07:47-0400 Body mass index (BMI) [Ratio] 25.6 kg/m2 Dr. Marco A Marie MD Work Phone: [facility] 07-15-2025 07:47-0400 Body weight [address] Marco A Marie MD Work Phone: 2(385)841-121971 [address] 07-13-2025 15:03-0400 Body height 167.[address] Marco A Marie MD Work Phone: [facility] 07-13-2025 15:03-0400 Body mass index (BMI) [Ratio] 25.9 kg/m2 Dr. Marco A Marie MD Work Phone: 5(879)993-967845 [place] [address] 07-13-2025 15:03-0400 Body weight 73.[address] Marco A Marie MD Work Phone: 5(056)603-074634 [place] [address] 07-13-2025 15:03-0400 Diastolic blood pressure 88 mm[Hg] Dr. Marco A Marie MD Work Phone: 7(225)796-541834 [place] [address] 07-13-2025 15:03-0400 Heart rate 85 /min Dr. Marco A Marie MD Work Phone: 7(091)159-134634 [place] [address] 07-13-2025 15:03-0400 Respiratory rate 17 /min Dr. Marco A Marie MD Work Phone: 7(079)986-560434 [place] [address] 07-13-2025 15:03-0400 SaO2% (BldA) [Mass fraction] 99 % Dr. Marco A Marie MD Work Phone: 9(711)967-844734 [place] [address] 07-13-2025 15:03-0400 Systolic blood pressure 128 mm[Hg] Dr. Marco A Marie MD Work Phone: 8(106)727-829045 [place] [address] 07-03-2025 12:54-0400 Body height 167.[address] Marco A Marie MD Work Phone: 9(868)783-529545 [place] [address] 07-03-2025 12:54-0400 Body mass index (BMI) [Ratio] 25.7 kg/m2 Dr. Marco A Marie MD Work Phone: 7(312)208-563245 [place] [address] 07-03-2025 12:54-0400 Body weight 72.[address] Marco A Marie MD Work Phone: 4(487)174-089234 [place] [address] 07-03-2025 12:54-0400 Diastolic blood pressure 106 mm[Hg] Dr. Marco A Marie MD Work Phone: 0(459)694-639945 [place] [address] 07-03-2025 12:54-0400 Heart rate 74 /min Dr. Marco A Marie MD Work Phone: [facility] 07-03-2025 12:54-0400 Respiratory rate 18 /min Dr. Marco A Marie MD Work Phone: [facility] 07-03-2025 12:54-0400 SaO2% (BldA) [Mass fraction] 100 % Dr. Marco A Marie MD Work Phone: [facility] 07-03-2025 12:54-0400 Systolic blood pressure 135 mm[Hg] Dr. Marco A Marie MD Work Phone: [facility] 05-06-2025 15:22-0400 Body temperature 98.1 [degF] Cm Cobian Jr., DPM Work Phone: [facility] 05-06-2025 15:22-0400 Diastolic blood pressure 87 mm[Hg] Cm Aranza Woods., DPM Work Phone: [facility] 05-06-2025 15:22-0400 Heart rate 89 /min Cm Aranza Jr., DPM Work Phone: [facility] 05-06-2025 15:22-0400 Systolic blood pressure 130 mm[Hg] Cm Aranza Jr., DPM Work Phone: [facility] 02-20-2025 15:11-0400 Body temperature 98.49 [degF] Cm Aranza Jr., DPM Work Phone: [facility] 02-20-2025 15:11-0400 Diastolic blood pressure 82 mm[Hg] Cm Aranza Jr., DPM Work Phone: [facility] 02-20-2025 15:11-0400 Heart rate 88 /min Cm Aranza Jr., DPM Work Phone: [facility] 02-20-2025 15:11-0400 Systolic blood pressure 116 mm[Hg] Cm Aranza ., DPM Work Phone: [facility] 02-13-2025 15:44-0400 Body temperature 98.1 [degF] Cm Aranza Jr., DPM Work Phone: [facility] 02-13-2025 15:44-0400 Diastolic blood pressure 92 mm[Hg] Cm Aranza Jr., DPM Work Phone: [facility] 02-13-2025 15:44-0400 Heart rate 64 /min Cm Aranza Jr., DPM Work Phone: [facility] 02-13-2025 15:44-0400 Systolic blood pressure 139 mm[Hg] Cm Aranza Jr., DPM Work Phone: [facility] 02-06-2025 10:28-0400 Body height 170.2 cm Cm Aranza Jr., DPM Work Phone: [facility] 02-06-2025 10:28-0400 Body temperature 98.2 [degF] Cm Aranza Jr., DPM Work Phone: [facility] 02-06-2025 10:28-0400 Diastolic blood pressure 72 mm[Hg] Cm Aranza Jr., DPM Work Phone: [facility] 02-06-2025 10:28-0400 Heart rate 72 /min Cm Aranza Jr., DPM Work Phone: [facility] 02-06-2025 10:28-0400 Respiratory rate 14 /min Cm Aranza Jr., DPM Work Phone: [facility] 02-06-2025 10:28-0400 SaO2% (BldA) [Mass fraction] 98 % Cm Aranza Jr., DPM Work Phone: [facility] 02-06-2025 10:28-0400 Systolic blood pressure 99 mm[Hg] Cm Aranza Jr., DPM Work Phone: [facility] 01-30-2025 13:58-0400 Body temperature 97.59 [degF] Cm Aranza Jr., DPM Work Phone: [facility] 01-30-2025 13:58-0400 Diastolic blood pressure 82 mm[Hg] Cm Aranza Jr., DPM Work Phone: [facility] 01-30-2025 13:58-0400 Heart rate 84 /min Cm Aranza Jr., DPM Work Phone: [facility] 01-30-2025 13:58-0400 Systolic blood pressure 117 mm[Hg] Cm Aranza Jr., DPM Work Phone: [facility] 01-23-2025 08:09-0400 Body temperature 97.7 [degF] Cm Aranza Jr., DPM Work Phone: [facility] 01-23-2025 08:09-0400 Diastolic blood pressure 80 mm[Hg] Cm Aranza Jr., DPM Work Phone: [facility] 01-23-2025 08:09-0400 Heart rate 79 /min Cm Aranza Jr., DPM Work Phone: [facility] 01-23-2025 08:09-0400 Systolic blood pressure 114 mm[Hg] Cm Aranza Jr., DPM Work Phone: [facility] 01-16-2025 08:17-0400 Body temperature 98.49 [degF] Cm Aranza Jr., DPM Work Phone: [facility] 01-16-2025 08:17-0400 Diastolic blood pressure 78 mm[Hg] Cm Aranza Jr., DPM Work Phone: [facility] 01-16-2025 08:17-0400 Heart rate 84 /min Cm Aranza Jr., DPM Work Phone: [facility] 01-16-2025 08:17-0400 Systolic blood pressure 116 mm[Hg] Mc Aranza Jr., DPM Work Phone: [facility] 01-06-2025 16:13-0500 Body height 170.2 cm Cheri Valente CNP Work Phone: [facility] 01-06-2025 16:13-0500 Body mass index (BMI) [Ratio] 27.57 kg/m2 Cheri Valente CNP Work Phone: [facility] 01-06-2025 16:13-0500 Body weight 79.83 kg Cheri Valente CNP Work Phone: [facility] 01-06-2025 16:13-0500 Diastolic blood pressure 85 mm[Hg] Cheri Valente CNP Work Phone: [facility] 01-06-2025 16:13-0500 Heart rate 72 /min Cheri Valente CNP Work Phone: [facility] 01-06-2025 16:13-0500 SaO2% (BldA) [Mass fraction] 97 % Cheri Valente CNP Work Phone: [facility] 01-06-2025 16:13-0500 Systolic blood pressure 127 mm[Hg] Cheri Valente CNP Work Phone: [facility] 12-24-2024 16:13-0500 Body temperature 98.2 [degF] Cm Cobian Jr., DPM Work Phone: [facility] 12-24-2024 16:13-0500 Diastolic blood pressure 99 mm[Hg] Cm Cobian Jr., DPM Work Phone: [facility] 12-24-2024 16:13-0500 Heart rate 83 /min Cm Cobian Jr., DPM Work Phone: [facility] 12-24-2024 16:13-0500 Systolic blood pressure 148 mm[Hg] Cm Cobian Jr., DPM Work Phone: [facility] 12-05-2024 16:43-0500 Diastolic blood pressure 99 mm[Hg] Cm Cobian Jr., DPM Work Phone: [facility] 12-05-2024 16:43-0500 Heart rate 78 /min Cm Cobian , DPM Work Phone: [facility] 12-05-2024 16:43-0500 Systolic blood pressure 148 mm[Hg] Cm Cobian Jr., DPM Work Phone: [facility] 12-05-2024 16:21-0500 Body temperature 98.4 [degF] Cm Cobian ., DPM Work Phone: [facility] 10-14-2024 15:23-0500 Body height 170.[address] Marco A Marie MD Work Phone: [facility] 10-14-2024 15:20-0500 Body mass index (BMI) [Ratio] 28.5 kg/m2 Dr. Marco A Marie MD Work Phone: [facility] 10-14-2024 15:20-0500 Body weight 82.[address] Marco A Marie MD Work Phone: [facility] 10-14-2024 15:20-0500 Diastolic blood pressure 82 mm[Hg] Dr. Marco A Marie MD Work Phone: [facility] 10-14-2024 15:20-0500 Systolic blood pressure 122 mm[Hg] Dr. Marco A Marie MD Work Phone: [facility] 07-11-2024 11:54-0400 Blood Pressure Location IVAN MILAN MD [facility] 07-11-2024 11:54-0400 Blood Pressure Method IVAN MILAN MD [facility] 07-11-2024 11:54-0400 Diastolic Blood Pressure Non-Invasive 94 mm[Hg] IVAN MILAN MD [facility] 07-11-2024 11:54-0400 Heart rate 71 /min IVAN MILAN MD [facility] 07-11-2024 11:54-0400 Respiratory rate 18 /min IVAN MILAN MD [facility] 07-11-2024 11:54-0400 Systolic Blood Pressure Non-Invasive 135 mm[Hg] IVAN MILAN MD [facility] 07-11-2024 10:35-0400 Blood Pressure Cuff Size IVAN MILAN MD [facility] 07-11-2024 10:35-0400 Blood Pressure Location IVAN MILAN MD [facility] 07-11-2024 10:35-0400 Blood Pressure Method IVAN MILAN MD [facility] 07-11-2024 10:35-0400 Body height 170.2 cm IVAN MILAN MD [facility] 07-11-2024 10:35-0400 Body temperature 97.88 [degF] IVAN MILAN MD [facility] 07-11-2024 10:35-0400 Body weight 85.9 kg IVAN MILAN MD [facility] 07-11-2024 10:35-0400 Diastolic Blood Pressure Non-Invasive 98 mm[Hg] IVAN MILAN MD [facility] 07-11-2024 10:35-0400 Heart rate 82 /min IVAN MILAN MD [facility] 07-11-2024 10:35-0400 Respiratory rate 18 /min IVAN MILAN MD [facility] 07-11-2024 10:35-0400 Systolic Blood Pressure Non-Invasive 141 mm[Hg] IVAN MILAN MD [facility] 06-18-2024 16:01-0400 Body temperature 99.1 [degF] Cm Aranza Jr., DPM Work Phone: [facility] 06-18-2024 16:01-0400 Diastolic blood pressure 86 mm[Hg] Cm Aranza Jr., DPM Work Phone: [facility] 06-18-2024 16:01-0400 Heart rate 74 /min Cm Aranza Jr., DPM Work Phone: [facility] 06-18-2024 16:01-0400 Systolic blood pressure 130 mm[Hg] Cm Aranza Jr., DPM Work Phone: [facility] 05-07-2024 16:11-0400 Body temperature 98.91 [degF] Cm Aranza Jr., DPM Work Phone: [facility] 05-07-2024 16:11-0400 Diastolic blood pressure 90 mm[Hg] Cm Aranza Jr., DPM Work Phone: [facility] 05-07-2024 16:11-0400 Heart rate 85 /min Cm Aranza Jr., DPM Work Phone: [facility] 05-07-2024 16:11-0400 Systolic blood pressure 146 mm[Hg] Cm Aranza Jr., DPM Work Phone: [facility] 02-27-2024 16:04-0400 Body temperature 100.6 [degF] Cm Aranza Jr., DPM Work Phone: [facility] Comment on above: sinus infection 04-24-2024 16:04-0400 Diastolic blood pressure 92 mm[Hg] Cm Desouzan Jr., DPM Work Phone: [facility] 02-27-2024 16:04-0400 Heart rate 99 /min Cm Desouzan Jr., DPM Work Phone: [facility] 02-27-2024 16:04-0400 Systolic blood pressure 139 mm[Hg] Cm Desouzan Jr., DPM Work Phone: [facility] 10-03-2023 08:26-0500 Diastolic Blood Pressure Non-Invasive 79 mm[Hg] SOL PALACIOS MD [facility] 10-03-2023 08:26-0500 Heart rate 58 /min SOL PALACIOS MD [facility] 10-03-2023 08:26-0500 Respiratory rate 18 /min SOL PALACIOS MD [facility] 10-03-2023 08:26-0500 Systolic Blood Pressure Non-Invasive 120 mm[Hg] SOL PALACIOS MD [facility] 10-03-2023 06:44-0500 Blood Pressure Location SOL PALACIOS MD [facility] 10-03-2023 06:44-0500 Blood Pressure Method SOL PALACIOS MD [facility] 10-03-2023 06:44-0500 Body height 167.6 cm SOL PALACIOS MD [facility] 10-03-2023 06:44-0500 Body temperature 98.96 [degF] SOL PALACIOS MD [facility] 10-03-2023 06:44-0500 Body weight 77.3 kg SOL PALACIOS MD [facility] 10-03-2023 06:44-0500 Diastolic Blood Pressure Non-Invasive 90 mm[Hg] SOL PALACIOS MD [facility] 10-03-2023 06:44-0500 Heart rate 64 /min SOL PALACIOS MD [facility] 10-03-2023 06:44-0500 Respiratory rate 16 /min SOL PALACIOS MD [facility] 10-03-2023 06:44-0500 Systolic Blood Pressure Non-Invasive 134 mm[Hg] SOL PALACIOS MD [facility] 12-30-2022 09:23-0500 Body temperature 98.6 [degF] Jim Plaza MD Work Phone: [facility] 12-30-2022 09:23-0500 Body weight 79.47 kg Jim Plaza MD Work Phone: [facility] 12-30-2022 09:23-0500 Diastolic blood pressure 94 mm[Hg] Jim Plaza MD Work Phone: [facility] 12-30-2022 09:23-0500 Heart rate 86 /min Jim Plaza MD Work Phone: [facility] 12-30-2022 09:23-0500 Respiratory rate 18 /min Jim Plaza MD Work Phone: [facility] 12-30-2022 09:23-0500 SaO2% (BldA) [Mass fraction] 99 % Jim Plaza MD Work Phone: [facility] 12-30-2022 09:23-0500 Systolic blood pressure 142 mm[Hg] Jim Plaza MD Work Phone: [facility] 09-21-2022 17:20-0500 Body height 170.18 cm MD Dany Spence MD [facility] [place] 09-21-2022 17:20-0500 Body mass index (BMI) [Ratio] 28.18 kg/m2 MD Dany Spence MD [facility] 09-21-2022 17:20-0500 Body temperature 97.7 [degF] MD Dany Spence MD [facility] [place] 09-21-2022 17:20-0500 Body weight 81.6 kg MD Dany Spence MD [facility] 09-21-2022 17:20-0500 Diastolic blood pressure 72 mm[Hg] MD Dany Spence MD [facility] 09-21-2022 17:20-0500 Heart rate 87 /min MD Dany Spence MD [facility] 09-21-2022 17:20-0500 Inhaled oxygen concentration 97 % MD Dany Spence MD [facility] 09-21-2022 17:20-0500 Respiratory rate 18 /min MD Dany Spence MD [facility] [place] 09-21-2022 17:20-0500 Systolic blood pressure 112 mm[Hg] MD Dany Spence MD [facility] [place] 08-15-2022 09:32-0400 Body height 170.2 cm Jovita Carlos MD Work Phone: [facility] 08-15-2022 09:32-0400 Body mass index (BMI) [Ratio] 28.54 kg/m2 Jovita Carlos MD Work Phone: [facility] 08-15-2022 09:32-0400 Body weight 82.64 kg Jovita Carlos MD Work Phone: [facility] 08-15-2022 09:32-0400 Diastolic blood pressure 85 mm[Hg] Jovita Carlos MD Work Phone: [facility] 08-15-2022 09:32-0400 Heart rate 75 /min Jovita Carlos MD Work Phone: [facility] 08-15-2022 09:32-0400 Systolic blood pressure 137 mm[Hg] Jovita Carlos MD Work Phone: [facility] 2022 11:16-0400 Body height 170.[address] Marco A Marie Work Phone: [facility] Work Phone: 2022 11:16-0400 Body mass index (BMI) [Ratio] 28.5 kg/m2 Dr. Marco A Marie Work Phone: [facility] Work Phone: 2022 11:16-0400 Body weight 82.[address] Marco A Marie Work Phone: [facility] Work Phone: 2022 11:16-0400 Diastolic blood pressure 88 mm[Hg] Dr. Marco A Marie Work Phone: [facility] Work Phone: 2022 11:16-0400 Heart rate 72 /min Dr. Marco A Marie Work Phone: [facility] Work Phone: 2022 11:16-0400 Systolic blood pressure 120 mm[Hg] Dr. Marco A Marie Work Phone: [facility] Work Phone: 03-26-2022 22:40-0400 Body height 170.[address] Marco A Marie Work Phone: [facility] Work Phone: 03-26-2022 22:40-0400 Body mass index (BMI) [Ratio] 30 kg/m2 Dr. Marco A Marie Work Phone: [facility] Work Phone: 03-26-2022 22:40-0400 Body weight 87.[address] Marco A Marie Work Phone: [facility] Work Phone: 03-26-2022 22:40-0400 Diastolic blood pressure 94 mm[Hg] Dr. Marco A Marie Work Phone: [facility] Work Phone: 03-26-2022 22:40-0400 Heart rate 72 /min Dr. Marco A Marie Work Phone: [facility] Work Phone: 03-26-2022 22:40-0400 Respiratory rate 18 /min Dr. Marco A Marie Work Phone: [facility] Work Phone: 03-26-2022 22:40-0400 SaO2% (BldA) [Mass fraction] 100 % Dr. Marco A Marie Work Phone: [facility] Work Phone: 03-26-2022 22:40-0400 Systolic blood pressure 129 mm[Hg] Dr. Marco A Marie Work Phone: [facility] Work Phone: 03-26-2022 22:22-0400 Body temperature 98.6 [degF] Dr. Marco A Marie Work Phone: [facility] Work Phone: 02-16-2022 13:44-0400 Body mass index (BMI) [Ratio] 30.1 kg/m2 Dr. Marco A Marie Work Phone: [facility] Work Phone: 02-16-2022 13:44-0400 Body weight 87.[address] Marco A Marie Work Phone: [facility] Work Phone: 02-16-2022 13:44-0400 Diastolic blood pressure 102 mm[Hg] Dr. Marco A Marie Work Phone: [facility] Work Phone: 02-16-2022 13:44-0400 Heart rate 84 /min Dr. Marco A Marie Work Phone: [facility] Work Phone: 02-16-2022 13:44-0400 Respiratory rate 16 /min Dr. Marco A Marie Work Phone: [facility] Work Phone: 02-16-2022 13:44-0400 Systolic blood pressure 154 mm[Hg] Dr. Marco A Marie Work Phone: [facility] Work Phone: 02-16-2022 13:44-0400 Body height 170.[address] Marco A Marie Work Phone: [facility] Work Phone: 02-16-2022 13:44-0400 Body mass index (BMI) [Ratio] 30.1 kg/m2 Dr. Marco A Marie Work Phone: [facility] Work Phone: 02-16-2022 13:44-0400 Body weight 87.[address] Marco A Marie Work Phone: [facility] Work Phone: 02-16-2022 13:44-0400 Diastolic blood pressure 102 mm[Hg] Dr. Marco A Marie Work Phone: [facility] Work Phone: 02-16-2022 13:44-0400 Heart rate 84 /min Dr. Marco A Marie Work Phone: [facility] Work Phone: 02-16-2022 13:44-0400 Respiratory rate 16 /min Dr. Marco A Marie Work Phone: [facility] Work Phone: 02-16-2022 13:44-0400 Systolic blood pressure 154 mm[Hg] Dr. Marco A Marie Work Phone: [facility] Work Phone: Encounters Encounter Date Encounter Type Care Provider Facility Start: 08-14-2025 End: 08-14-2025 ambulatory Marco A Mraie Facility:[facility] Start: 07-15-2025 Non-patient / Non-visit Dr. Angel Qureshi MD -[facility] Start: 07-15-2025 End: 07-15-2025 Admission to same day surgery center Dr. Jessica Qureshi MD -Endoscopy Work Phone: Start: 07-15-2025 End: 07-15-[address] Marco A Marie MD Work Phone: -Endoscopy Start: 07-13-2025 End: 07-13-[address] Jessica Qureshi MD -[facility] Work Phone: Start: 07-13-2025 End: 07-13-[address] Marco A Marie MD Work Phone: -[facility] Start: 07-03-2025 End: 07-03-[address] Marco A Marie MD Work Phone: -Cat Scan [facility] Start: 07-03-2025 End: 07-03-[address] Maico Petty MD -Cat Scan [facility] Work Phone: Start: 07-03-2025 End: 07-03-2025 ambulatory Marco A Marie Facility:[facility] Start: 06-29-2025 End: 06-29-[address] Marco A Marie MD Work Phone: -Laboratory [facility] Start: 06-29-2025 End: 06-29-[address] Maico Petty MD -[facility] Start: 06-29-2025 End: 06-29-2025 ambulatory Marco A Marie Facility:[facility] Start: 06-09-2025 End: 06-09-[address] Marco A Marie MD Work Phone: -Laboratory [facility] Start: 06-09-2025 End: 06-09-[address] Francis Miranda MD -Laboratory [facility] Start: 06-09-2025 End: 06-09-2025 ambulatory Francis Miranda Facility:[facility] Start: 2025 End: 05-23-2025 Emergency department patient visit DR CARINE BARRAZA MD [facility] Start: 05-06-2025 End: 05-06-2025 Office outpatient visit 15 minutes Cm Aranza DPM Work Phone: [facility] Comment on above: Plantar fasciitis (P rimary Dx); Left foot pain Start: 05-06-2025 End: 05-06-2025 ambulatory CM COBIAN JR. [facility] Start: 03-23-2025 End: 03-23-[address] Marco A Marie MD -[facility] Work Phone: Start: 03-23-2025 End: 03-23-2025 ambulatory Marco A Marie Facility:[facility] Start: 02-20-2025 End: 02-20-2025 Postop follow up visit related to original px Cm Arnaza DPM Work Phone: [facility] Comment on above: Left foot pain (Prim salvador Dx); Plantar fasciitis Start: 02-20-2025 End: 02-20-2025 ambulatory CM COBIAN JR. [facility] Start: 02-13-2025 End: 02-13-2025 Postop follow up visit related to original px Cm Aranza DPM Work Phone: [facility] Comment on above: Plantar fasciitis (P rimary Dx) Start: 02-13-2025 End: 02-13-2025 ambulatory CM COBIAN JR. [facility] Start: 02-06-2025 End: 02-06-2025 Postop follow up visit related to original px Cm Desouzan DPM Work Phone: [facility] Comment on above: Plantar fasciitis (P rimary Dx); Left foot pain Start: 02-06-2025 End: 02-06-2025 ambulatory [facility] Start: 01-30-2025 End: 01-30-2025 Follow-up encounter Cm Cobian DPM Work Phone: [facility] Comment on above: Left foot pain (Prim salvador Dx) Start: 01-30-2025 End: 01-30-2025 ambulatory [facility] Start: 01-29-2025 End: 01-29-[address] Marco A Marie MD Work Phone: [facility] Work Phone: Start: 01-29-2025 End: 01-29-[address] Marco A Marie MD -Cat Scan, [facility] Work Phone: Start: 01-29-2025 End: 01-29-2025 ambulatory Marco A Marie Facility:[facility] Start: 01-23-2025 End: 01-23-2025 Postop follow up visit related to original px Cm Floreslon DPM Work Phone: [facility] Comment on above: Plantar fasciitis (P rimary Dx); Left foot pain Start: 01-23-2025 End: 01-23-2025 [facility] Start: 01-21-2025 End: 01-21-2025 Documentation procedure Cm Cobian DPM Work Phone: [facility] Start: 01-19-2025 End: 01-19-2025 ambulatory CM COBIAN [facility] Start: 01-16-2025 End: 01-16-2025 ambulatory MARCO A [facility] Start: 01-16-2025 End: 01-16-2025 Office outpatient visit 25 minutes Cm Aranza DPM Work Phone: [facility] Comment on above: Plantar fasciitis (P rimary Dx) Start: 01-06-2025 Encounter for other preprocedural examination CHERI OGMEZ [facility] Start: 01-06-2025 End: 01-06-2025 Office outpatient new 45 minutes Marco A Marie MD Work Phone: [facility] Preadmission Testing Comment on above: Pre-op examination ( Primary Dx); Plantar fasciitis; Left foot pain; Juan J's syndrome; Cardiac arrhythmia, unspecified cardiac arrhythmia type; TIA (transient ischemic attack) Start: 01-06-2025 End: 01-10-2025 ambulatory [facility] Start: 01-06-2025 End: 01-10-2025 Encounter for other preprocedural examination [facility] Start: 01-06-2025 End: 01-06-2025 Preprocedural examination done Marco A Marie MD Work Phone: [facility] Work Phone: Start: 12-24-2024 End: 12-24-2024 Office outpatient visit 25 minutes Cm Aranza DPM Work Phone: [facility] Comment on above: Plantar fasciitis (P rimary Dx); Left foot pain Start: 12-24-2024 End: 12-24-2024 ambulatory CM COBIAN JR. [facility] Start: 12-19-2024 End: 12-19-2024 ambulatory CM COBIAN JR. [facility] Start: 12-05-2024 End: 12-05-2024 ambulatory CM ARANZA WOODS. [facility] Start: 12-05-2024 End: 12-05-2024 Office outpatient visit 15 minutes Cm Aranza DPM Work Phone: [facility] Comment on above: Plantar fasciitis (P rimary Dx); Left foot pain Start: 10-20-2024 Encounter for other preprocedural examination Samara Marcanthony [facility] Start: 10-14-2024 End: 10-14-2024 Patient encounter procedure Maddie QUINTERO [facility] Work Phone: Start: 10-14-2024 End: 10-14-2024 ambulatory Marco A Marie Facility:[facility] Start: 10-13-2024 Encounter for other preprocedural examination Marco A Marie [facility] Start: 09-25-2024 End: 09-25-2024 ambulatory Marco A Marie Facility:[facility] Start: 09-23-2024 End: 09-24-2024 ambulatory Marco A Marie Facility:[facility] Start: 09-22-2024 End: 09-22-2024 ambulatory Marco A Marie Facility:[facility] Start: 09-17-2024 End: 09-17-2024 ambulatory Marco A Marie Facility:[facility] Start: 09-10-2024 End: 09-10-2024 ambulatory Marco A Marie Facility:[facility] Start: 07-29-2024 End: 07-29-2024 Emergency department patient visit JONNY [facility] Start: 07-11-2024 End: 07-11-2024 Emergency department patient visit IVAN MILAN MD [facility] Start: 06-18-2024 End: 06-18-2024 Office outpatient visit 15 minutes Cm Cobian DPM Work Phone: [facility] Comment on above: Plantar fasciitis (P rimary Dx); Left foot pain Start: 06-18-2024 End: 06-18-2024 [facility] Start: 05-07-2024 End: 05-07-2024 Patient encounter procedure Cm Cobian DPM Work Phone: [facility] Comment on above: Plantar fasciitis (P rimary Dx) Start: 04-02-2024 End: 04-02-2024 Office outpatient visit 10 minutes Cm Cobian DPM Work Phone: [facility] Comment on above: Plantar fasciitis (P rimary Dx) Start: 03-12-2024 End: 03-12-2024 Patient encounter procedure Cm Floreslon DPM Work Phone: [facility] Comment on above: Plantar fasciitis (P rimary Dx) Start: 03-11-2024 End: 03-11-2024 ambulatory [facility] Work Phone: Start: 03-11-2024 End: 03-11-[address] [facility] Start: 02-27-2024 End: 02-27-2024 Office outpatient new 30 minutes Cm Floreslon DPM Work Phone: [facility] Comment on above: Plantar fasciitis (P rimary Dx) Start: 02-12-2024 End: 02-12-2024 ambulatory [facility] Work Phone: Start: 02-12-2024 End: 02-12-2024 Patient encounter procedure [facility] Work Phone: Start: 12-25-2023 End: 12-25-2023 ambulatory [facility] Work Phone: Start: 12-25-2023 End: 12-25-2023 Patient encounter procedure [facility] Office 3rd Flr Start: 10-04-2023 End: 10-04-2023 ambulatory [facility] Work Phone: Start: 10-04-2023 End: 10-04-[address] [facility] Start: 10-03-2023 End: 10-03-2023 Emergency department patient visit MARCO A MARIE MD Facility:B Start: 10-03-2023 End: 10-03-2023 Emergency department patient visit SOL PALACIOS MD [facility] Start: 09-05-2023 End: 09-05-2023 ambulatory [facility] Work Phone: Start: 09-05-2023 End: 09-05-2023 Patient encounter procedure [facility]Laboratory, Phy Office 3rd Flr Start: 08-13-2023 End: 08-13-2023 Emergency department patient visit DR TAYE JOSE MD Facility:B Start: 04-20-2023 End: 04-20-2023 ambulatory [facility] Work Phone: Start: 04-20-2023 End: 04-20-2023 Patient encounter procedure [facility] Start: 01-11-2023 End: 01-11-2023 ambulatory [facility] Work Phone: Start: 01-11-2023 End: 01-11-2023 [facility] Start: 12-30-2022 End: 12-30-2022 ambulatory Facility:[facility] Start: 12-30-2022 End: 12-30-2022 Patient encounter procedure Jim Plaza MD Work Phone: [facility] Comment on above: Dental infection (Pr imary Dx) Start: 09-20-2022 End: 09-21-2022 Evaluation and management of inpatient OTHER PCP Facility:UNKNOWN Start: 09-18-2022 ambulatory [facility] Start: 09-18-2022 ambulatory ADARSH ENGLE Facility: UNKNOWN Start: 09-18-2022 Encounter for other preprocedural examination ADARSH ENGLE Facility:UNKNOWN Start: 08-15-2022 End: 08-15-[address] Marco A Marie Work Phone: [facility] Work Phone: Start: 08-15-2022 End: 08-15-[address] Marco A Marie Work Phone: [facility] Start: 08-15-2022 ambulatory JOVITA Lee ty:[facility] Start: 08-15-2022 End: 08-15-2022 Office outpatient new 60 minutes Jovita aCrlos MD Work Phone: [facility] [place] [facility] Comment on above: Left hand pain (Prim salvador Dx) Start: 08-06-2022 ambulatory ZHAO WHITE Facilit y:[facility] Start: 07-21-2022 End: 07-21-[address] MAICO PETTY MD [facility] Start: 07-19-2022 End: 07-20-2022 ambulatory [facility] Start: 07-19-2022 End: 07-19-2022 ambulatory [facility] Start: 07-19-2022 End: 07-19-2022 Subsequent hospital visit by physician Cathleen Srinivasan MD Work Phone: [facility] Comment on above: 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 Marco A Marie Work Phone: [facility] Start: 04-21-2022 End: 04-21-[address] Marco A Marie Work Phone: [facility] Start: 04-07-2022 ambulatory ZHAO WHITE Facilit y:[facility] Start: 03-26-2022 End: 03-26-2022 Emergency department patient visit Dr. Marco A Marie Work Phone: [facility] Start: 03-22-2022 ambulatory TOSHIMASA OKABE Facilit y:[facility] Start: 03-16-2022 End: 03-16-[address] Marco A Marie [facility] Start: 03-14-2022 ambulatory ZHAO WHITE Facilit y:[facility] Start: 02-22-[address] Marco A huntley Work Phone: [facility] Start: 02-17-2022 Non-patient / Non-visit Dr. Brooke Marie Work Phone: [facility] Start: 02-16-2022 End: 02-16-[address] Marco A Marie Work Phone: [facility] Start: 11-24-2021 End: 11-24-[address] Marco A Marie Work Phone: [facility]Laboratory, Phy Office 3rd Flr Start: 03-02-2021 End: 03-02-2021 Subsequent hospital visit by physician Omid Sky MD Work Phone: [facility] Comment on above: Arrived Start: 12-15-2020 End: 12-15-2020 Subsequent hospital visit by physician Omid Sky Work Phone: [facility] Comment on above: Ventricular tachycar naren (HCC) MD Dany Spence MD [facility] Procedures Date Procedure Procedure Detail Performing Clinician Start: 07-15-[address] Marco A huntley MD Work Phone: Start: 07-03-2025 Computed tomography of abdomen and [...] in 7 to 14 days isrecommended.Performed at: [address] [id number] Director: Kashmir Levy PhD, Phone: [phone] Start: 03-23-2025 MRI of brain with contrast [...] 05-28-2030 Tetanus vaccination Tetanus: Every 1 0yrs [facility] Start: 08-05-2025 End: 08-05-2025 Patient encounter procedure 08/05/2025 4:15 PM EDT Office Visit [facility] [address] [place] [phone] Cm Cobian Jr., DPM [address] [place] [address] [facility] Start: 07-15-2025 Patient discharge [facility] Start: 07-06-2025 Influenza vaccination [facility] Start: 07-03-2025 Following clinical pathway protocol [facility] Start: 05-20-2025 End: 05-20-2025 Patient encounter procedure 05/20/2025 4:00 PM EDT Office Visit [facility] [address] [place] [phone] Cm Cobian Jr., DPM [address] [place] [address] [facility] Start: 02-20-2025 End: 02-20-2025 Follow-up encounter 02/20/2025 3:30 PM EDT Follow-Up [facility] [address] [place] [address] Cm Cobian Jr., DPM [address] [place] [address] [facility] Start: 02-13-2025 End: 02-13-2025 Follow-up encounter 02/13/2025 3:45 PM EDT Follow-Up [facility] [address] [place] [address] Cm Cobian Jr., DPM [address] [place] [address] [facility] Start: 02-06-2025 End: 02-06-2025 Follow-up encounter 02/06/2025 10:30 AM EDT Follow-Up [facility] [address] [place] [address] Cm Cobian Jr., DPM [address] [address] [facility] Start: 01-30-2025 End: 01-30-2025 Follow-up encounter 01/30/2025 2:00 PM EDT Follow-Up [facility] [address] [place] [address] Cm Cobian Jr., DPM [address] [place] [address] [facility] Start: 01-23-2025 End: 01-23-2025 Follow-up encounter 01/23/2025 8:30 AM EDT Follow-Up [facility] [address] [place] [address] Cm Cobian Jr., DPM [address] [place] [address] [facility] Start: 01-19-2025 End: 01-19-2025 Admission to same day surgery center 01/19/2025 9:55 AM EDT - 01/19/2025 10:58 AM EDT Surgery [facility] [address] [place] [address] Cm Cobian Jr., DPM [address] [place] [address] left foot plantar fasciotomy [facility] Comment on above: left foot plantar fa sciotomy Start: 01-19-2025 End: 01-19-2025 Anesthesia consultation 01/19/2025 9:55 AM EDT Anesthesia Event [facility] [address] [place] [address] Isabel Diaz MD [address], [place] [phone] [facility] Start: 01-19-2025 End: 01-19-2025 Fasciotomy foot&/toe FASCIOTOMY PLANTAR ENDOSCOPIC UNILATERAL Plantar fasciitis Left foot pain 01/19/2025 9:55 AM EDT [facility] Start: 01-19-2025 End: 01-19-2025 Admission to same day surgery center 01/19/2025 7:35 AM EDT - 01/19/2025 8:38 AM EDT Surgery [facility] [address] [place] [address] Cm Cobian Jr., LUTHER [address] [place] [address] left foot plantar fasciotomy [facility] Comment on above: left foot plantar fa sciotomy Start: 01-19-2025 End: 01-19-2025 Fasciotomy foot&/toe FASCIOTOMY PLANTAR ENDOSCOPIC UNILATERAL Plantar fasciitis Left foot pain 01/19/2025 7:35 AM EDT [facility] Start: 01-19-2025 Subsequent hospital visit by physician [facility] Start: 01-16-2025 End: 01-16-2025 Patient encounter procedure 01/16/2025 3:45 PM EDT Office Visit [facility] [address] [place] [address] Cm Cobian Jr., LUTHER [address] [place] [address] [facility] Start: 01-16-2025 End: 01-16-2025 Patient encounter procedure 01/16/2025 8:15 AM EDT Office Visit [facility] [address] [place] [address] Cm Cobian Jr., DPNicolas [address] [place] [address] [facility] Start: 07-09-2024 End: 07-09-2024 Patient encounter procedure 07/09/2024 4:00 PM EDT Office Visit [facility] [address] [facility] [place] [address] Cm Cobian Jr., DPNicolas [address] [place] [address] [facility] Start: 07-06-2024 COVID-19 Vaccine ( season) COVID-19 Vaccine ( season) [facility] Start: 07-06-2024 Influenza vaccination O [facility] Start: 06-04-2024 End: 06-04-2024 Patient encounter procedure 06/04/2024 4:15 PM EDT Office Visit [facility] [address] [place] [address] Cm Cobian Jr., LUTHER [address] [place] [address] [facility] Start: 2024 Screening for malign ant neoplasm of breast Mammogram [facility] Start: 04-02-2024 End: 04-02-2024 Patient encounter procedure 04/02/2024 4:00 PM EDT Office Visit [facility] [address] [place] [address] Cm Cobian Jr., DPM [address] [place] [address] [facility] Start: 03-12-2024 End: 03-12-2024 Patient encounter procedure 03/12/2024 4:00 PM EDT Office Visit [facility] [address] [place] [address] Cm Cobian Jr., DPNicolas [address] [place] [address] [facility] Start: 07-06-2023 COVID-19 Vaccine ( season) COVID-19 Vaccine ( season) [facility] Start: 11-05-2022 DEPRESSION ASSESSMENT DEPRESSION ASS ESSMENT [facility] Start: 10-31-2022 End: 10-31-2022 Patient encounter procedure 10/31/2022 Office Visit Vascular Surgery Jovita Carlos MD [address] [place] [address] [facility] [place] [facility] Start: 08-15-2022 End: 08-15-2023 XR Cervical spine 4 Views XR SPINE CERVICAL 4 VIEWS Imaging Routine Left hand pain Expected: 08/15/2022, Expires: 08/15/2023 [facility] Comment on above: Expected: 08/15/2022 , Expires: 08/15/2023 Start: 07-06-2022 FLU (#1) FLU (#1) [facility] Start: 07-06-2022 Influenza vaccination [facility] Start: 03-26-2022 CT of head without contrast Brain/Head without Contrast [facility] Work Phone: Start: 07-06-2021 Influenza vaccination Flu vacc ine (Season Ended) [facility] Work Phone: Start: 07-06-2020 Influenza vaccination Flu vaccine (# 1) [facility] Work Phone: Start: 05-27-2015 Potassium [Moles/vol ume] in Serum or Plasma POTASSIUM [facility] Start: 09-23-2011 MMR (1 of 1 - Standa rd series) MMR (1 of 1 - Standard series) [facility] Start: 09-23-2011 Varicella (1 of 2 - 2-dose childhood series) Varicella (1 of 2 - 2-dose childhood series) [facility] Start: 2005 Microscopic observat ion [Identifier] in Cervix by Cyto stain Pap Smear [facility] Start: 2005 Screening for malign ant neoplasm of cervix [facility] Start: 2003 Third diphtheria, tetanus and acellular pertussis (DTaP) vaccination TDAP (ADULT) [facility] Start: 07-18-2003 Urine microalbumin profile DTAP,TDAP,TD (1 - Tdap) [facility] Start: 2002 ANNUAL 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 RICHARDSON DISEASE VISIT ANNUAL PCP TEAM CHRONIC DISEASE VISIT [facility] Start: 2002 BP CONTROLLED (<130/80) BP CONTROLLE D (<130/80) [facility] Start: 2002 HEPATITIS C SCREENING HEPATITIS C SC [facility] Start: 2002 Hepatitis C screening Hepatitis C [facility] Start: 2002 HIV SCREENING HIV SCREENING [facility] Start: 2002 Tetanus vaccination TETANUS [facility] Start: 2000 COVID-19 Vaccine (1) COVID-19 Vaccin e (1) [facility] Work Phone: Start: 2000 MenB (1 of 2 - MenB 2-Dose Series) MenB (1 of 2 - MenB 2-Dose Series) [facility] Start: 1999 HIV screening [facility] Start: 1996 Depression screening using PHQ-9 (Patient Health Questionnaire 9) score [facility] Start: 1991 Tetanus Diphtheria a nd Pertussis Vaccines (1 - Tdap) Tetanus Diphtheria and Pertussis Vaccines (1 - Tdap) [facility] Start: 1987 History and physical examination, annual for health maintenance Wellness Visit [facility] Start: 1985 Varicella vaccine (1 of 2 - 2-dose childhood series) Varicella vaccine (1 of 2 - 2-dose childhood series) [facility] Work Phone: Start: 1984 COVID-19 (#1) COVID-19 (#1) [facility] Start: 1984 COVID-19 VACCINE (#1) COVID-19 VACCI NE (#1) [facility] Start: 1984 Hepatitis B (1 of 3 - 3-dose series) Hepatitis B (1 of 3 - 3-dose series) [facility] Start: 1984 Hepatitis B vaccination HEP B VACCINE (1 of 3 - 3-dose series) [facility] Start: 1984 Hepatitis C screening O [facility] Start: 1984 Tetanus vaccination Tetanus: Every 1 0yrs [facility] Colonoscopy [facility] End: 12-24-2025 Complete blood count with white cell differential, manual CBC and differential Lab Routine Plantar fasciitis Left foot pain 1 Occurrences starting 12/24/2024 until 12/24/2025 [facility] Work Phone: Comment on above: 1 Occurrences starti ng 12/24/2024 until 12/24/2025 Fasciotomy foot&/toe FASCIOTOMY PLANTAR ENDOSCOPIC UNILATERAL Plantar fasciitis Left foot pain [facility] End: 07-19-2022 Genetic Sendout: Hypokalemia and Related Disorders Panel [facility] Work Phone: Comment on above: 1 Occurrences starti ng 07/19/2022 until 07/19/2022 End: 06-18-2025 MR Foot - left WO contrast MR Foot Left Without Contrast Imaging Routine Plantar fasciitis Left foot pain 1 Occurrences starting 06/18/2024 until 06/18/2025 [facility] Work Phone: Comment on above: 1 Occurrences starti ng 06/18/2024 until 06/18/2025 End: 12-05-2025 MR Foot - left WO contrast MR Foot Left Without Contrast Imaging Routine Plantar fasciitis Left foot pain 1 Occurrences starting 12/05/2024 until 12/05/2025 [facility] Work Phone: Comment on above: 1 Occurrences starti ng 12/05/2024 until 12/05/2025 Patient referral [facility] Work Phone: [facility] Immunizations Immunization Date Immunization Notes Care Provider Fa [facility] 10-05-2021 influenza virus vaccine, unspecified formulation Cm Cobian Jr., LUTHER Work Phone: [facility] 10-03-2021 influenza virus vaccine, unspecified formulation Jovita Carlos MD Work Phone: [facility] 01-28-2021 measles, mumps and rubella virus vaccine Dr. Marco A Marie Work Phone: [facility] 01-17-2021 influenza, injectabl e, quadrivalent, preservative free [facility] 01-17-2021 influenza, seasonal, injectable Dr. Marco A Marie Work Phone: [facility] 05-28-2020 tetanus toxoid, redu christy diphtheria toxoid, and acellular pertussis vaccine, adsorbed Dr. Marco A Marie Work Phone: [facility] 08-09-2013 influenza virus vaccine, unspecified formulation Jim Plaza MD Work Phone: [facility] Work Phone: 08-05-2012 influenza virus vaccine, unspecified formulation Jim Plaza MD Work Phone: [facility] Work Phone: 08-26-2011 influenza virus vaccine, live, attenuated, for intranasal use Jim Plaza MD Work Phone: [facility] Work Phone: 07-31-2009 influenza virus vaccine, unspecified formulation Jim Plaza MD Work Phone: [facility] Work Phone: Payers Date Payer Category Payer Private Health Insurance [id number] 2023 Self-pay [id number] 2022 [facility] UE/PREF/HMO/PPO [id number] 2022 Unknown [id number] .[id number] 2022 Unknown [id number] 2021 Private Health Insurance [id number] 1984 Unknown [id number] 2.16.840.1.352074.3.579.2 .479 1984 Unknown [id number] 2.16.840.1.638225.3.579.2 .479 1984 Unknown [id number] 2.16840.1.919990.3.579.2 .594 1984 Unknown [id number] 2.16840.1.357287.3.579.2 .594 1984 Unknown [id number] 2.16.840.1.901856.3.579.2 .594 1984 Unknown [id number] 2.16.840.1.400359.3.579.2 .594 1984 Unknown [id number] 2.16840.1.194073.3.579.2 .594 1984 Unknown [id number] 2.16840.1.292268.3.579.2 .693 1984 Unknown [id number] 2.16.840.1.499100.3.579.2 .693 1984 Unknown [id number] 2.16.840.1.912380.3.579.2 .693 1984 Unknown [id number] 2.16.840.1.134622.3.579.2 .627 1984 Unknown [id number] 2.16.840.1.385196.3.579.2 .627 1984 Unknown [id number] 2.16.840.1.601275.3.579.2 .902 1984 Unknown [id number] 2.840.1.136312.3.579.2 .1984 Unknown [id number] 2.840.1.907600.3.579.2 .1984 Unknown [id number] 2.840.1.426859.3.579.2 .1984 Unknown [id number] 2.840.1.503201.3.579.2 1984 Unknown [id number] 2.840.1.654645.3.579.2 1984 Unknown [id number] 2.840.1.509540.3.579.2 1984 Unknown [id number] 2.840.1.460054.3.579.2 1984 Unknown [id number] 2.840.1.312878.3.579.2 1984 Unknown [id number] 2.840.1.072748.3.579.2 1984 Unknown [id number] 2.840.1.405586.3.579.2 1984 Unknown [id number] 2.840.1.688103.3.579.2 1984 Unknown [id number] 2.840.1.949292.3.579.2 .1984 Unknown [id number] 2.840.1.700149.3.579.2 1984 Unknown [id number] 2.840.1.728910.3.579.2 .627 1984 Unknown [id number] 2.840.1.491043.3.579.2 .627 Unknown [id number] Unknown [id number] 2.16.840.1.406096.3.579.2 .462 Unknown [id number] 2.16.840.1.137008.3.579.2 .462 Unknown [id number] 2.16.840.1.154412.3.579.2 .462 Unknown [id number] 2.840.1.470575.3.579.2 .462 Unknown [id number] 2.16840.1.531607.3.579.2 .462 Unknown [id number] 2.840.1.473876.3.579.2 .462 Unknown [id number] 2.840.1.504506.3.579.2 .462 Unknown [id number] 2.840.1.928867.3.579.2 .462 Unknown [id number] 2.840.1.328277.3.579.2 .462 Unknown [id number] 2.840.1.650322.3.579.2 .462 Unknown [id number] 2.840.1.401794.3.579.2 .462 Unknown [id number] 2.840.1.600019.3.579.2 .462 Unknown [id number] 2.840.1.391511.3.579.2 .462 Unknown [id number] 2.840.1.869066.3.579.2 .462 Unknown [id number] .840.1.908940.3.579.2 .462 Unknown [id number] 2.840.1.897181.3.579.2 .462 Unknown [id number] 2.840.1.570851.3.579.2 .462 Social History Date Type Detail Facility Start: 07-04-2016 End: 08-28-2022 Tobacco smoking status OHIS Unknown if ever smoked [facility] Start: 1984 Sex Assigned At Not on file [facility] [employer] Work Phone: Start: 09-26-2019 None [facility] Start: 09-26-2019 With Family [facility] Start: 05-28-2020 Cigarettes [facility] Start: 1984 Sex Assigned At Female A [facility] Start: 07-19-2022 [facility] Start: 11-05-1999 End: 02-22-2014 History of tobacco use Cigarette Smoker [facility] Start: 07-19-2022 End: 01-06-2025 Tobacco use and exposure Smokeless tobacco non-user [facility] Start: 07-09-2022 End: 07-19-2022 Exposure to SARS-CoV-2 (event) Not sure [facility] Start: 04-14-2019 Tobacco smoking status Light t obacco smoker (finding) [facility] Start: 08-15-2022 End: 07-13-2025 Tobacco smoking status NHIS Ex-smoker [facility] Start: 11-05-1999 End: 02-22-2014 History of tobacco use Current smoker [facility] Start: 08-15-2022 Alcohol intake 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 (finding) [facility] Start: 08-15-2022 Tobacco Comment less than 1/2 PPD [facility] Start: 12-30-2022 Alcohol intake Not Asked [facility] Start: 06-30-2023 [facility] tobacco [facility] Start: 02-27-2024 End: 05-06-2025 Alcohol intake Ex-drinker (finding) [facility] Start: 06-30-2023 End: 02-20-2025 History of Social function [facility] Start: 06-30-2023 End: 02-20-2025 Tobacco use panel [facility] Start: 04-14-2019 End: 02-03-2025 Sex Female (finding) [facility] [place] Goals Date Patient Goal Desired Activity /State Functional Status Date Assessment Result Facility 07-11-2024 Functional Status Independent [facility] 07-11-2024 Functional Status Room check performed [facility] 10-03-2023 Functional Status Room check performed [facility] 10-03-2023 Functional Status [facility] Mental Status Date Assessment Result Facility 07-15-2025 Cognitive function Level Of Consciousness Drowsy [facility] Work Phone: 07-15-2025 Cognitive function Voice/Name [facility] Work Phone: 07-03-2025 Cognitive function Awake;Alert;Appropriat e [facility] Work Phone: 07-11-2024 Mental Status Orientation Oriented x 4 [facility] 07-11-2024 Mental Status [facility] 10-03-2023 Mental Status Orientation Oriented x 4 [facility] 10-03-2023 Mental Status [facility] 03-26-2022 Cognitive function Voice/Name [facility] Work Phone: Clinical Notes 03-02-2021 to 07-15-2025 Note Date & Type Note Facility 07-15-2025 Consult note [facility] 07-15-2025 Consult note Note Date/Time July 15, 2025 8:26[facility] Medical Records Department [address] [facility] [place] [address] Pre-Anesthesia Evaluation 07/15/25 0807 MR#: [id number] Acct: [id number] Name: MALISSA ELLIOTT BRIANNA Rep #:[id number] : 1985 40 From: Tremaine Rivera PCP: Dr. Marco A Marie MD Status:LEONARD NESBITT Y Race: C Location: [place] [address] ASA Classification* ASA Classification ASA Classification: 2 Assessment & Plan Anesthesia* Anesthesia Assessment Anesthesia Assessment: Discussed sedation and/or anesthesia options, risks, benefits, and alternatives with patient/parents/legal guardian/POA. Questions invited. The patient/parents/legal guardian/POA seems to understand and agrees to proceedwith anesthesia plan. Reviewed the physical assessment, medical history, allergy history and patient home medications list prior to surgery/procedure/anesthetic and documented any changes. Performed airway and anesthesia risk assessments. Anesthesia Type Anesthesia Type: MAC History Source History Obtained from:: Patient and Chart Anesthesia Focused Assessment* Temperature: 97.6 F Pulse Rate: 81 Blood Pressure: 151/107 Respiratory Rate: 16 Pulse Ox: 98 Oxygen Delivery Method: Room Air Airway Assessment Mouth opens: >3 cm Mallampati Score: II Teeth Condition: Intact Neck Range of motion (ROM): Full ROM Labs Anesthesia Preop lab: CBC WBC 6.0 K/mm3 (4.4-11.0) 06/29/25 11:35 06/29/25 RBC 4.58 M/mm3 (4.2-5.4) 06/29/25 11:35 06/29/25 Hgb 13.6 g/dL (12.0-15.0) 06/29/25 11:35 06/29/25 Hct 41.0 % (37-47) 06/29/25 11:35 06/29/25 Plt Count 343 K/mm3 (150-450) 06/29/25 11:35 06/29/25 CHEMISTRY Potassium 4.3 mmol/L (3.3-5.1) 06/29/25 11:35 06/29/25 Sodium 140 mmol/L (133-145) 06/29/25 11:35 06/29/25 Magnesium 2.1 mg/dL (1.5-2.2) 06/09/25 16:36 06/09/25 Phosphorus 2.8 mg/dL (2.5-4.9) 09/05/23 13:39 09/05/23 BUN 8 mg/dL (4-19) 06/29/25 11:35 06/29/25 Creatinine 0.75 mg/dL (0.70-1.20) 06/29/25 11:35 06/29/25 Glucose 78 mg/dL (70-99) 06/29/25 11:35 06/29/25 POC Glucose 104 mg/dL (70-110) 05/30/21 07:54 05/30/21 TSH 4.160 uIU/mL (0.300-4.200) 06/09/25 16:36 08/0 03/29 COAG PT 12.1 SECONDS (11.7-14.9) 09/17/24 15:52 Urine Test Negative Negative 09/23/24 13:20 09/23/24 Pre-Assessment Diagnosis/Proposed Procedure Planned Operative Procedure(s): EGD/CSCOPE Anesthesia History 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 When Was Last Pacemaker Check QUESTION #4 FULL TEXT: You/Your Family Experience fever (hyperthermia) with Anesthesia Last Oral Intake Last Oral intake: Last Oral Intake NPO since 22:00 07/15/25 07:47 Meds taken in AM with sips of No 07/15/25 07:47 water? Meds patient instructed to take am of surgery PONV PONV - sales and service officer: PONV - sales and service officer Female Yes 07/13/25 16:27 HX of Motion Sickness No 07/13/25 16:27 HX of N/V After Surgery No 07/13/25 16:27 Non-Smoker Yes 07/13/25 16:27 Duration of Surgery greater No 07/13/25 16:27 than 60 minutes Number of Risk Factors 2 07/13/25 16:27 PONV Score Moderate Risk 07/13/25 16:27 Height & Weight Height & Weight: Anesthesia: Height & Weight Height 5 ft 6 in 07/15/25 07:47 Weight: 72 kg 07/15/25 07:47 Body Mass Index (BMI) 25.6 07/15/25 07:47 Respiratory Assessment Respiratory Assessment - sales and service officer: Respiratory Tract Infection Hx - sales and service officer Hx Respiratory Tract Infection No 07/13/25 16:27 STOP Sleep Apnea STOP Sleep Apnea - sales and service officer: STOP Sleep Apnea - sales and service officer Hx Hypertension Yes: CONTROLLED WITH MED 07/13/25 [...] Tobacco Use History Tobacco Use History - sales and service officer: Tobacco Use History - sales and service officer Tobacco Use Smoking Status Former smoker 07/13/25 16:27 Hx Tobacco Use No 07/13/25 16:27 Years Smoking Packs Smoked per Day Smoking Cessation Date was Yes - quit smoking within 15 07/13/25 16:27 within the last 15 years years Hx Smoking Cessation Date 05/05/22 07/13/25 16:27 Hx Smoking Cessation No 07/13/25 16:27 Counseling Hematologic Medial History Hematologic Hx - sales and service officer: Hematologic 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 Specify any problems Hx of Preganancy in last 3 No 07/13/25 16:27 Months Nurse Filling Out Transfusion DSCHRIBER 07/13/25 16:27 & Questions: Date: 07/13/25 07/13/25 16:27 Time: 16:28 07/13/25 16:27 Patient unable to answer at this time (ie. confused, unrespo /Reproduction History /Reproductive History - sales and service officer: /Reproductive Hx- sales and service officer Hx Now No 07/13/25 16:27 Gestational Age (in weeks): EDC: Hx Hx Para Hx Section SAB No 07/13/25 16:27 Active Medications Active Medications: Current Medications Generic Name Dose Route Start Last Admin Trade Name Freq PRN Reason Stop Dose Admin Lactated Ringer's 1,000 mls @ 15 mls/hr 07/15/25 08:00 07/15/25 07:58 IV 15 mls/hr .Q48H BALDOMERO Administration PFSH Medical History Blood disorder Gastric reflux Wears contact lenses Depression Anxiety Easy bruising Injury of head and neck Former smoker History of echocardiogram Cardiology follow-up encounter Juan J's syndrome PSVT (paroxysmal supraventricular tachycardia) Hypertensive heart disease without HF (heart failure) Mixed hyperlipidemia Essential hypertension TIA (transient ischemic attack) Tachycardia Home Medications ?Medication ?Instructions ?Recorded ?Last Taken ?Type amiloride 5 mg tablet 10 mg PO BID 02/16/22 History clonidine HCl 0.1 mg tablet 0.1 mg PO TID hypertensive 05/22/22 07/14/25 History emergency fluoxetine 10 mg capsule 10 mg PO BID 07/13/25 History hydralazine 50 mg tablet 50 mg PO TID 07/13/25 History omeprazole 40 mg capsule,delayed 40 mg PO QDAY #30 cap s 07/13/25 Unknown Rx release verapamil 180 mg tablet,extended 180 mg PO DAILY 07/1307/14/25 History release Allergy/AdvReac Type Severity Reaction Status Date / Time adhesive tape Allergy Mild Rash Verified 07/15/25 07:45 Iodinated Contrast Media Allergy Unknown Itching Verified 07/15/25 07:45 Family History Father Heart disease Grandfather Heart disease Maternal Grandmother Breast cancer Surgical History Hx of ovarian cystectomy Hx of foot surgery History of right oophorectomy History of resection of rib S/P tubal ligation History of hysterectomy Social History household members: spouse 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 07/15/25 08 <Electronically signed by Tremaine Do MD> Date _ Tremaine Do MD Cosignjosafat Signature: Date CC: ~ Signed [facility] Work Phone: 1(253) 962-970509-10-2025 Consult note [facility] Medical Records Department [address] [facility] [address] Anesthesia Postop Eval I 07/15/25 101 MR#: [id number] Acct: [id number] Name: MALISSA ELLIOTT BRIANNA Rep #:[id number] : 1985 40 From: Jamel Silva PCP: Dr. Marco A Marie MD Status:RE [facility] Y Race: C Location: [place] [address] Anesthesia: Postop Eval I Current Vital Signs Temperature: 97.8 F Pulse Rate: 86 Blood Pressure: 118/89 Respiratory Rate: 18 Pulse Ox: 99 Oxygen Delivery Method: Room Air Assessment Airway patent: Yes Spontaneous unlabored respirations: Yes Mental status: Asleep nausea: No Vomiting: No Anesthesia Complication: No Fluid Hydration Crystalloid volume administer (ml): 600 Total IV fluid infused: 600 Progress Note Anesthesia document: Postop Eval 1 completed: Yes 07/15/25 1012 > Date _ Jamel Canales Signature: Date CC: ~ Signed [facility]09-10-2025 Procedure note [facility] Medical Records Department [address] [place] [address] Colonoscopy Report MR#: [id number] Acct: [id number] Name: MALISSA ELLIOTT Rep #:[id number] : 1985 40 From: Jessica Qureshi MD PCP: Dr. Marco A Marie MD Status:[facility]ONARD Wang [facility] Patient Name: Malissa Elliott Procedure Date: 07/15/2025 9:46 AM Date of : 1985 Age: 40 Procedure: Colonoscopy Indications: Abdominal pain in the left lower quadrant, Abdominal pain in the left upper quadrant, Abdominal pain in the right lower quadrant, Chronic diarrhea, Weight loss Providers: Jessica Qureshi MD Medicines: Monitored Anesthesia Care Patient Profile: This is a 40 year old female. Last Colonoscopy: none. The patient's first colonoscopy is today. Complications: No immediate complications. Procedure: Pre-Anesthesia Assessment: - Prior to the procedure, a History and Physical was performed, and patient medications and allergies were reviewed. The patient's tolerance of previous anesthesia was also reviewed. The risks and benefits of the procedure and the sedation options and risks were discussed with the patient. All questions were answered, and informed consent was obtained. Prior Anticoagulants: The patient has taken no anticoagulant or antiplatelet agents. ASA Grade Assessment: Per anesthesia. After reviewing the risks and benefits, the patient was deemed in satisfactory condition to undergo the procedure. After I obtained informed consent, the scope was passed under direct vision. Throughout the procedure, the patient's blood pressure, pulse, and oxygen saturations were monitored continuously. The pediatric colonoscope was introduced through the anus and advanced to the cecum, identified by the appendiceal orifice, ileocecal valve and palpation. The colonoscopy was performed without difficulty. The patient tolerated the procedure well. The quality of the bowel preparation was good. Scope In: 9:47:10 AM Scope Withdrawal Time 0 hours 9 minutes 33 seconds Scope Out: 10:02:37 AM Total Procedure Duration Time 0 hours 15 minutes 27 seconds Findings: The perianal and digital rectal examinations were normal. A few small-mouthed diverticula were found in the sigmoid colon. Two biopsies were obtained with cold forceps for histology randomly. The exam was otherwise without abnormality on direct and retroflexion views. Impression: - Diverticulosis in the sigmoid colon. - The examination was otherwise normal on direct and retroflexion views. - Two biopsies were obtained. Recommendation: - Discharge patient to home. - Resume previous diet. - Continue present medications. - Await pathology results. - Repeat colonoscopy in 10 years for screening purposes. Procedure Code(s): --- Professional --- 32242, Colonoscopy, flexible; with biopsy, single or multiple Diagnosis Code(s): --- Professional --- R10.32, Left lower quadrant pain R10.12, Left upper quadrant pain R10.31, Right lower quadrant pain K52.9, Noninfective gastroenteritis and colitis, unspecified R63.4, Abnormal weight loss K57.30, Diverticulosis of large intestine without perforation or abscess without bleeding CPT copyright 2021 [employer]. All rights reserved. The codes documented in this report are preliminary and upon rotational moulding operator review may be revised to meet current compliance requirements. MD Jessica Hahn MD 07/15/2025 10:11:39 AM This report has been signed electronically. Number of Addenda: 0 Note Initiated On: 07/15/2025 9:46 AM 07/15/25 1011 Date _ Jessica Qureshi MD Cosigner Signature: Date (if indicated) CC: Dr. Marco A Marie MD; Dr. Jessica Qureshi MD ~ Date Dictated: 07/15/2546 Date Transcribed: Exposure Machine Operator: TR Signed [facility]09-10-2025 Procedure note [facility] Medical Records Department [address] [place] [address] Provation Physician Letter MR#: [id number] Acct: [id number] Name: MALISSA ELLIOTT Rep #:[id number] : 1985 40 From: Jessica Qureshi MD PCP: Dr. Marco A Marie MD Status:LEONARD NESBITT 07/15/2025 Marco A Marie [address] [place] [address] Re : Colonoscopy procedure for Malissa Elliott Dear Dr. Marie This procedure was performed on Tuesday, July 15, 2025. My impressions and recommendations are as follows: Impressions : - Diverticulosis in the sigmoid colon. - The examination was otherwise normal on direct and retroflexion views. - Two biopsies were obtained. Recommendations : - Discharge patient to home. - Resume previous diet. - Continue present medications. - Await pathology results. - Repeat colonoscopy in 10 years for screening purposes. My findings are described in the full procedure note, which is enclosed. If I can be of further assistance, please feel free to contact me at Doctor phone number(s): , Work: . Sincerely, MD Jessica Hhan MD 07/15/2025 10:11:39 AM This report has been signed electronically. 07/15/25 1011 Date _ Jessica Qureshi MD Cosigner Signature: Date (if indicated) CC: Dr. Marco A Marie MD; Dr. Jessica Qureshi MD ~ Date Dictated: 07/15/2546 Date Transcribed: Exposure Machine Operator: TR Signed [facility]09-10-2025 Procedure note [facility] Medical Records Department [address] [place] [address] EGD Report MR#: [id number] Acct: [id number] Name: MALISSA ELLIOTT Rep #:[id number] : 1985 40 From: Jessica Qureshi MD PCP: Dr. Marco A Marie MD Status:[facility]ONARD Wang [facility] Patient Name: Malissa Elliott Procedure Date: 07/15/2025 9:33 AM Date of : 1985 Age: 40 Procedure: Upper GI endoscopy Indications: Abdominal pain in the left upper quadrant, Weight loss Providers: Jessica Qureshi MD Medicines: Monitored Anesthesia Care Patient Profile: This is a 40 year old female. Complications: No immediate complications. Procedure: Pre-Anesthesia Assessment: - Prior to the procedure, a History and Physical was performed, and patient medications and allergies were reviewed. The patient's tolerance of previous anesthesia was also reviewed. The risks and benefits of the procedure and the sedation options and risks were discussed with the patient. All questions were answered, and informed consent was obtained. Prior Anticoagulants: The patient has taken no anticoagulant or antiplatelet agents. ASA Grade Assessment: Per anesthesia. After reviewing the risks and benefits, the patient was deemed in satisfactory condition to undergo the procedure. After obtaining informed consent, the endoscope was passed under direct vision. Throughout the procedure, the patient's blood pressure, pulse, and oxygen saturations were monitored continuously. The pediatric colonoscope was introduced through the mouth, and advanced to the second part of duodenum. The upper GI endoscopy was accomplished without difficulty. The patient tolerated the procedure well. Scope In: 9:41:38 AM Scope Out: 9:46:32 AM Total Procedure Duration Time 0 hours 4 minutes 54 seconds Findings: The Z-line was variable and was found 40 cm from the incisors. The examined duodenum was normal. Mildly erythematous mucosa without bleeding was found in the gastric antrum. Biopsies were taken with a cold forceps for histology. Biopsies were taken with a cold forceps for Helicobacter pylori cultures. The cardia and gastric fundus were normal on retroflexion. No gross lesions were noted in the entire esophagus. Impression: - Z-line variable, 40 cm from the incisors. - Normal examined duodenum. - Erythematous mucosa in the antrum. Biopsied. - No gross lesions in the entire esophagus. Recommendation: - Await pathology results. - Discharge patient to home. - Resume previous diet. - Use Prilosec (omeprazole) 40 mg PO daily. - Use Pepcid (famotidine) 20 mg PO daily for 2-3 days then PRN only. - Continue present medications. Procedure Code(s): --- Professional --- 69260, Esophagogastroduodenoscopy, flexible, transoral; with biopsy, single or multiple Diagnosis Code(s): --- Professional --- K22.89, Other specified disease of esophagus K31.89, Other diseases of stomach and duodenum R10.12, Left upper quadrant pain R63.4, Abnormal weight loss CPT copyright 2021 [employer]. All rights reserved. The codes documented in this report are preliminary and upon rotational moulding operator review may be revised to meet current compliance requirements. MD Jessica Hahn MD 07/15/2025 10:08:46 AM This report has been signed electronically. Number of Addenda: 0 Note Initiated On: 07/15/2025 9:33 AM 07/15/25 1009 Date _ Jessica Qureshi MD Cosigner Signature: Date (if indicated) CC: Dr. Marco A Marie MD; Dr. Jessica Qureshi MD ~ Date Dictated: 07/15/25932 Date Transcribed: Exposure Machine Operator: TR Signed [facility]09-10-2025 Procedure note [facility] Medical Records Department [address] [facility] [address] [place] [id number] Provation Physician Letter MR#: [id number] Acct: [id number] Name: MALISSA ELLIOTT BRIANNA Rep #:[id number] : 1985 40 From: Jessica Qureshi MD PCP: Dr. Marco A Marie MD Status:RE G [facility] 07/15/2025 Marco A Marie [address] [place] [address] Re : Upper GI endoscopy procedure for Malissa Elliott Dear Dr. Marie This procedure was performed on Tuesday, July 15, 2025. My impressions and recommendations are as follows: Impressions : - Z-line variable, 40 cm from the incisors. - Normal examined duodenum. - Erythematous mucosa in the antrum. Biopsied. - No gross lesions in the entire esophagus. Recommendations : - Await pathology results. - Discharge patient to home. - Resume previous diet. - Use Prilosec (omeprazole) 40 mg PO daily. - Use Pepcid (famotidine) 20 mg PO daily for 2-3 days then PRN only. - Continue present medications. My findings are described in the full procedure note, which is enclosed. If I can be of further assistance, please feel free to contact me at Doctor phone number(s): , Work: . Sincerely, MD Jessica Hahn MD 07/15/2025 10:08:46 AM This report has been signed electronically. 07/15/25 100 Date _ Jessica Qureshi MD Cosigner Signature: Date (if indicated) CC: Dr. Marco A Marie MD; Dr. Jessica Qureshi MD ~ Date Dictated: 07/15/25932 Date Transcribed: Exposure Machine Operator: TR Signed [facility]09-10-2025 History and physical note Author Jessica Qureshi [facility] Note Date/Time July 15, 2025 8:05am [facility] Medical Records Department [address] [place] [address] History & Physical Exam 07/15/25724 MR#: [id number] Acct: [id number] Name: MALISSA ELLIOTT Rep #:[id number] : 1985 40 From: Jessica Qureshi MD PCP: Dr. Marco A Marie MD Status:[facility] Location: [place] [address] History and Physical Date of Admission: 07/15/25 Date of Service: 07/13/25 MR#: [id number] Acct: [id number] Name: MALISSA ELLIOTT Rep #: [id number] : 1985 Provider: Dr. Jessica Qureshi MD Age/Sex: 40/F Location: [facility] Status: Signed Intake Vital Signs 07/03/2512:54 07/13/2515:03 Height 5 ft 6 in 5 ft 6 in Weight: 161 lb BMI 25.9 BP 128/88 H Blood Pressure Location Rt brachial Position Sitting Respiration 17 Pulse 85 Pulse Source Monitor Pulse Oximetry (%) 99 Oxygen Delivery Method room air Intake Visit Reasons: Abdominal pain Chief Complaint: abdominal pain/scopes Is patient in pain?: No Allergies adhesive tape Allergy (Mild, Verified 07/13/25 16:24) RashIodinated Contrast Media Allergy (Unknown, Verified 07/13/25 16:24) Itching Medications ?Medication ?Instructions ?Recorded ?Confirmed ?Type amiloride 5 mg tablet 10 mg PO BID 02/16/22 07/13/25 History clonidine HCl 0.1 mg tablet 0.1 mg PO TID hypertensive 05/22/2206/29 History emergency fluoxetine 10 mg capsule 10 mg PO BID 07/13/25 07/13/25 History hydralazine 50 mg tablet 50 mg PO TID 07/13/25 07/13/25 History omeprazole 40 mg capsule,delayed 40 mg PO QDAY #30 caps 07/13/25 07/13/25 Rx release verapamil 180 mg tablet,extended 180 mg PO DAILY 07/13/25 07/13/25 Histor y release PFSH Medical History (Updated 07/14/25 @ [...] 15:03 by Rosanne De Santiago) Father Heart diseaseGrandfather Heart diseaseMaternal Grandmother Breast cancer Social History household members: spouse 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 Patient states that for the last 2 months she has had lower abdominal discomfort constantly, and after eating it will increaseto 6?7/10 and last for about a couple hours does not matter what she eats. Previous to 2 months ago this would happen on and off. Patient states she only has diarrhea after eating. Patient states she is also had about 30 pound weightloss in 2 months as she does not feel like eating if she gets abdominal crampingpain and also has to run to the bathroom. Patient does admit to some left upperquadrant pain as well as some burning up [...] abnormal hearing, No abnormal movements, No abnormal speech, No behavioral changes, No burning sensations, No confusion, No convulsions, No disequilibrium, No dizziness, No localized weakness, No frequent falls, No headache(s), No lack of coordination, No loss ofvision, No memory loss, No numbness, No other visual disturbances, No radicular pain, No restless legs, No sensory deficit, No syncope, No tingling, No tremor(s), No weakness and No other Exam Const General: cooperative, healthy appearing, comfortable and no acute distress [facility] Head: normocephalic and atraumatic Neck Neck: supple Resp Effort & Inspection: normal respiratory effort Cardio Rate: regular rate GI Inspection: non-distended Palpation: soft, no guarding and tender in the LLQ, in the RLQ and in the LUQ; with no rebound tenderness Skin General: no rashes or lesions noted Neuro General: CN's II-XI intact bilaterally Extrem General: normal to inspection Psych Mental Status: mental status grossly normal Attitude: cooperative Assessment and Plan Assessment and Plan (1) Abdominal pain: Qualifiers: Abdominal location: left upper quadrant Qualified Code(s): R10.12 - Left upper quadrant pain (2) Diarrhea: Status: Acute (3) Weight loss, non-intentional: Status: Acute Orders: Orders Colonoscopy 07/15/25 Cheri RODRIGUEZ PA-C EGD 07/15/25 Cheri RODRIGUEZ PA-C Medications: New omeprazole swallow whole; do not crush, chew, dissolve, cut, break 40 mg PO QDAY [id number] Jessica Qureshi MD dicyclomine 30 mins before meals &/or bedtime 20 mg PO BID [address] Jessica Qureshi MD Plan Last give patient a prescription for omeprazole due to the left upper quadrant pain as well as Bentyl as she has crampy abdominal pain immediately after eatingand has to run to the bathroom. I have discussed the above with the patient. I have offered the patient esophagogastroduodenoscopy and colonoscopy for evaluation. Will plan for random biopsies. I have explained the risks/benefits of the procedure and described the procedure. I have discussed the risks with the patient, including but not limited to: infection, bleeding, perforation of the GI tract requiring emergency surgery, inability to complete the procedure, injury to any internal organs, complications of anesthesia, etc. - the patient understands and agrees to proceed. I have answered all the patient's questions to the patient's satisfaction and the patient has no further questions. The patient has been given instructions for the colon cleansing preparation. 1 day of clears, MiraLAX Dulcolax prep. Jessica Qureshi M.D. Pager: [phone] [facility] [address] [place] [address], [facility], [address] [place] [address] Office: [phone] Coding Level of Care Code Off vis,new,level 3 Diagnoses Left upper quadrant abdominal pain R10.12 Abdominal location: left upper quadrant Diarrhea R19.7 Weight loss, non-intentional R63.4 07/14/25926 <Electronically signed by Jessica Qureshi MD> Date Jessica Qureshi MD 07/15/25724 <Electronically signed by Jessica Qureshi MD> Cosigner Signature (if applicable): CC: Dr. Marco A Marie MD; Dr. Jessica Qureshi MD~ Signed ADDENDUM by Dr. Jessica Qureshi MD on 07/15/25 at 0805 Addendum I have examined the patient and the H&P has been reviewed. There are no clinicalchanges since date of exam. 07/15/25804<Electronically signed by Jessica Qureshi MD> Cosigner Signature (if applicable): cc: Dr. Marco A Marie MD; Dr. Jessica Qureshi MD ~* Signed [facility] Work Phone: 1(982) 644-132109-10-2025 Consult note [facility] Medical Records Department [address] [place] [address] Pre-Anesthesia Evaluation 07/15/25806 MR#: [id number] Acct: [id number] Name: MALISSA ELLIOTT Rep #:[id number] : 1985 40 From: Tremaine Rivera PCP: Dr. Marco A Marie MD Status:[facility] Y Race: C Location: [place] [address] ASA Classification* ASA Classification ASA Classification: 2 Assessment & Plan Anesthesia* Anesthesia Assessment Anesthesia Assessment: Discussed sedation and/or anesthesia options, risks, benefits, and alternatives with patient/parents/legal guardian/POA. Questions invited. The patient/parents/legal guardian/POA seems to understand and agrees to proceedwith anesthesia plan. Reviewed the physical assessment, medical history, allergy history and patient home medications list prior to surgery/procedure/anesthetic and documented any changes. Performed airway and anesthesia risk assessments. Anesthesia Type Anesthesia Type: MAC History Source History Obtained from:: Patient and Chart Anesthesia Focused Assessment* Temperature: 97.6 F Pulse Rate: 81 Blood Pressure: 151/107 Respiratory Rate: 16 Pulse Ox: 98 Oxygen Delivery Method: Room Air Airway Assessment Mouth opens: >3 cm Mallampati Score: II Teeth Condition: Intact Neck Range of motion (ROM): Full ROM Labs Anesthesia Preop lab: CBC WBC 6.0 K/mm3 (4.4-11.0) 06/29/25 11:35 06/29/25 RBC 4.58 M/mm3 (4.2-5.4) 06/29/25 11:35 06/29/25 Hgb 13.6 g/dL (12.0-15.0) 06/29/25 11:35 06/29/25 Hct 41.0 % (37-47) 06/29/25 11:35 06/29/25 Plt Count 343 K/mm3 (150-450) 06/29/25 11:35 06/29/25 CHEMISTRY Potassium 4.3 mmol/L (3.3-5.1) 06/29/25 11:35 06/29/25 Sodium 140 mmol/L (133-145) 06/29/25 11:35 06/29/25 Magnesium 2.1 mg/dL (1.5-2.2) 06/09/25 16:36 06/09/25 Phosphorus 2.8 mg/dL (2.5-4.9) 09/05/23 13:39 09/05/23 BUN 8 mg/dL (4-19) 06/29/25 11:35 06/29/25 Creatinine 0.75 mg/dL (0.70-1.20) 06/29/25 11:35 06/29/25 Glucose 78 mg/dL (70-99) 06/29/25 11:35 06/29/25 POC Glucose 104 mg/dL (70-110) 05/30/21 07:54 05/30/21 TSH 4.160 uIU/mL (0.300-4.200) 06/09/25 16:36 08/0 03/29 COAG PT 12.1 SECONDS (11.7-14.9) 09/17/24 15:52 Urine Test Negative Negative 09/23/24 13:20 09/23/24 Pre-Assessment Diagnosis/Proposed Procedure Planned Operative Procedure(s): EGD/CSCOPE Anesthesia History 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 When Was Last Pacemaker Check QUESTION #4 FULL TEXT: You/Your Family Experience fever (hyperthermia) with Anesthesia Last Oral Intake Last Oral intake: Last Oral Intake NPO since 22:00 07/15/25 07:47 Meds taken in AM with sips of No 07/15/25 07:47 water? Meds patient instructed to take am of surgery PONV PONV - sales and service officer: PONV - sales and service officer Female Yes 07/13/25 16:27 HX of Motion Sickness No 07/13/25 16:27 HX of N/V After Surgery No 07/13/25 16:27 Non-Smoker Yes 07/13/25 16:27 Duration of Surgery greater No 07/13/25 16:27 than 60 minutes Number of Risk Factors 2 07/13/25 16:27 PONV Score Moderate Risk 07/13/25 16:27 Height & Weight Height & Weight: Anesthesia: Height & Weight Height 5 ft 6 in 07/15/25 07:47 Weight: 72 kg 07/15/25 07:47 Body Mass Index (BMI) 25.6 07/15/25 07:47 Respiratory Assessment Respiratory Assessment - sales and service officer: Respiratory Tract Infection Hx - sales and service officer Hx Respiratory Tract Infection No 07/13/25 16:27 STOP Sleep Apnea STOP Sleep Apnea - sales and service officer: STOP Sleep Apnea - sales and service officer Hx Hypertension Yes: CONTROLLED WITH MED 07/13/25 [...] than talking or can be heard through closeddoors)? Tobacco Use History Tobacco Use History - sales and service officer: Tobacco Use History - sales and service officer Tobacco Use Smoking Status Former smoker 07/13/25 16:27 Hx Tobacco Use No 07/13/25 16:27 Years Smoking Packs Smoked per Day Smoking Cessation Date was Yes - quit smoking within 15 07/13/25 16:27 within the last 15 years years Hx Smoking Cessation Date 05/05/22 07/13/25 16:27 Hx Smoking Cessation No 07/13/25 16:27 Counseling Hematologic Medial History Hematologic Hx - sales and service officer: Hematologic 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 Specify any problems Hx of Preganancy in last 3 No 07/13/25 16:27 Months Nurse Filling Out Transfusion DSCHRIBER 07/13/25 16:27 & Questions: Date: 07/13/25 07/13/25 16:27 Time: 16:28 07/13/25 16:27 Patient unable to answer at this time (ie. confused, unrespo /Reproduction History /Reproductive History - sales and service officer: /Reproductive Hx- sales and service officer Hx Now No 07/13/25 16:27 Gestational Age (in weeks): EDC: Hx Hx Para Hx Section SAB No 07/13/25 16:27 Active Medications Active Medications: Current Medications Generic Name Dose Route Start Last Admin Trade Name Freq PRN Reason Stop Dose Admin Lactated Ringer's 1,000 mls @ 15 mls/hr 07/15/25 08:00 07/15/25 07:58 IV 15 mls/hr .Q48H BALDOMERO Administration PFSH Medical History Blood disorder Gastric reflux Wears contact lenses Depression Anxiety Easy bruising Injury of head and neck Former smoker History of echocardiogram Cardiology follow-up encounter Juan J's syndrome PSVT (paroxysmal supraventricular tachycardia) Hypertensive heart disease without HF (heart failure) Mixed hyperlipidemia Essential hypertension TIA (transient ischemic attack) Tachycardia Home Medications ?Medication ?Instructions ?Recorded ?Last Taken ?Type amiloride 5 mg tablet 10 mg PO BID 02/16/22 History clonidine HCl 0.1 mg tablet 0.1 mg PO TID hypertensive 05/22/22 07/14/25 History emergency fluoxetine 10 mg capsule 10 mg PO BID 07/13/25 History hydralazine 50 mg tablet 50 mg PO TID 07/13/25 History omeprazole 40 mg capsule,delayed 40 mg PO QDAY #30 cap s 07/13/25 Unknown Rx release verapamil 180 mg tablet,extended 180 mg PO DAILY 07/1307/14/25 History release Allergy/AdvReac Type Severity Reaction Status Date / Time adhesive tape Allergy Mild Rash Verified 07/15/25 07:45 Iodinated Contrast Media Allergy Unknown Itching Verified 07/15/25 07:45 Family History Father Heart disease Grandfather Heart disease Maternal Grandmother Breast cancer Surgical History Hx of ovarian cystectomy Hx of foot surgery History of right oophorectomy History of resection of rib S/P tubal ligation History of hysterectomy Social History household members: spouse 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 07/15/25825 MD> Date _ Tremaine Do MD Cosigner Signature: Date CC: ~ Signed [facility]09-10-2025 History and physical note [facility] Medical Records Department [address] [place] [address] History & Physical Exam 07/15/25724 MR#: [id number] Acct: [id number] Name: ELLIOTTMALISSA Holman BRIANNA Rep #:[id number] : 1985 40 From: Jessica Qureshi MD PCP: Dr. Marco A Marie MD Status:[facility] Location: [place] [address] History and Physical Date of Admission: 07/15/25 Date of Service: 07/13/25 MR#: [id number] Acct: [id number] Name: ELLIOTT,MALISSA BRIANNA Rep #: [id number] : 1985 Provider: Dr. Jessica Qureshi MD Age/Sex: 40/F Location: [facility] Status: Signed Intake Vital Signs 07/03/2512:54 07/13/2515:03 Height 5 ft 6 in 5 ft 6 in Weight: 161 lb BMI 25.9 BP 128/88 H Blood Pressure Location Rt brachial Position Sitting Respiration 17 Pulse 85 Pulse Source Monitor Pulse Oximetry (%) 99 Oxygen Delivery Method room air Intake Visit Reasons: Abdominal pain Chief Complaint: abdominal pain/scopes Is patient in pain?: No Allergies adhesive tape Allergy (Mild, Verified 07/13/25 16:24) RashIodinated Contrast Media Allergy (Unknown, Verified 07/13/25 16:24) Itching Medications ?Medication ?Instructions ?Recorded ?Confirmed ?Type amiloride 5 mg tablet 10 mg PO BID 02/16/22 07/13/25 History clonidine HCl 0.1 mg tablet 0.1 mg PO TID hypertensive 05/22/22 09/06/29 History emergency fluoxetine 10 mg capsule 10 mg PO BID 07/13/25 07/13/25 History hydralazine 50 mg tablet 50 mg PO TID 07/13/25 07/13/25 History omeprazole 40 mg capsule,delayed 40 mg PO QDAY #30 caps 07/13/25 07/13/25 Rx release verapamil 180 mg tablet,extended 180 mg PO DAILY 07/13/25 07/13/25 Histor y release PFSH Medical History (Updated 07/14/25 @ [...] 15:03 by Rosanne De Santiago) Father Heart diseaseGrandfather Heart diseaseMaternal Grandmother Breast cancer Social History household members: spouse current occupational status: employed 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 Patient states that for the last 2 months she has had lower abdominal discomfort constantly, and after eating it will increaseto 6?7/10 and last for about a couple hours does not matter what she eats. Previous to 2 months ago this would happen on and off. Patient states she only has diarrhea after eating. Patient states she is also had about 30 pound weightloss in 2 months as she does not feel like eating if she gets abdominal crampingpain and also has to run to the bathroom. Patient does admit to some left upperquadrant pain as well as some burning up [...] cough, No COPD, No asthma, No emphysema andNo wheezing Gastro Gastrointestinal: Yes abdominal pain, Yes [...] abnormal hearing, No abnormal movements, No abnormal speech, No behavioral changes, No burning sensations, No confusion, No convulsions, No disequilibrium, No dizziness, No localized weakness, No frequent falls, No headache(s), No lack of coordination, No loss ofvision, No memoryloss, No numbness, No other visual disturbances, No radicular pain, No restless legs, No sensory deficit, No syncope, No tingling, No tremor(s), No weakness and No other Exam Const General: cooperative, healthy appearing, comfortable and no acute distress HENMT Head: normocephalic and atraumatic Neck Neck: supple Resp Effort & Inspection: normal respiratory effort Cardio Rate: regular rate GI Inspection: non-distended Palpation: soft, no guarding and tender in the LLQ, in the RLQ and in the LUQ; with no rebound tenderness Skin General: no rashes or lesions noted Neuro General: CN's II-XI intact bilaterally Extrem General: normal to inspection Psych Mental Status: mental status grossly normal Attitude: cooperative Assessment and Plan Assessment and Plan (1) Abdominal pain: Qualifiers: Abdominal location: left upper quadrant Qualified Code(s): R10.12 - Left upper quadrant pain (2) Diarrhea: Status: Acute (3) Weight loss, non-intentional: Status: Acute Orders: Orders Colonoscopy 07/15/25 Cheri RODRIGUEZ PA-C EGD 07/15/25 Cheri RODRIGUEZ PA-C Medications: New omeprazole swallow whole; do not crush, chew, dissolve, cut, break 40 mg PO QDAY [id number] Jessica Qureshi MD dicyclomine 30 mins before meals &/or bedtime 20 mg PO BID [address] Jessica Qureshi MD Plan Last give patient a prescription for omeprazole due to the left upper quadrant pain as well as Bentyl as she has crampy abdominal pain immediately after eatingand has to run to the bathroom. I have discussed the above with the patient. I have offered the patient esophagogastroduodenoscopy and colonoscopy for evaluation. Will plan forrandom biopsies. I have explained the risks/benefits of the procedure and described the procedure. I have discussed the risks with the patient, including but not limited to: infection, bleeding, perforation of the GItract requiring emergency surgery, inability to complete the procedure, injury to any internal organs, complications of anesthesia, etc. - the patient understands and agrees to proceed. I have answered all the patient's questions to the patient's satisfaction and the patient has no further questions. The patient has been given instructions for the colon cleansing preparation. 1 day of clears, MiraLAX Dulcolax prep. Jessica Qureshi M.D. Pager: [phone] [facility] [address] [place] [address], [address] [place] [address] Office: [phone] Coding Level of Care Code Off vis,new,level 3 Diagnoses Left upper quadrant abdominal pain R10.12 Abdominal location: left upper quadrant Diarrhea R19.7 Weight loss, non-intentional R63.4 07/14/25926 Date Jessica Qureshi MD 07/15/25724 Cosigner Signature (if applicable): CC: Dr. Marco A Marie MD; Dr. Jessica Qureshi MD~ Signed ADDENDUM by Dr. Jessica Qureshi MD on 07/15/25 at 08 Addendum I have examined the patient and the H&P has been reviewed. There are no clinicalchanges since date of exam. 07/15/25804 Cosigner Signature (if applicable): cc: Dr. Marco A Marie MD; Dr. Jessica Qureshi MD ~* Signed [facility]09-10-2025 [facility] Medical Records Department [address] [place] [address] History Physical Exam 07/15/25724 MR#: [id number] Acct: [id number] Name: MALISSA ELLIOTT BRIANNA Rep #: [id number] : 1985 40 From: Jessica Qureshi MD PCP: Dr. Marco A Marie MD Status:[facility] Location: [place] [address] History and Physical Date of Admission: 07/15/25 Date of Service: 07/13/25 MR#: [id number] Acct: [id number] Name: MALISSA ELLIOTT BRIANNA Rep #: [id number] : 1985 Provider: Dr. Jessica Qureshi MD Age/Sex: 40/F Location: [facility] Status: Signed Intake Vital Signs 07/03/2512:54 07/13/2515:03 Height 5 ft 6 in 5 ft 6 in Weight: 161 lb BMI 25.9 BP 128/88 H Blood Pressure Location Rt brachial Position Sitting Respiration 17 Pulse 85 Pulse Source Monitor Pulse Oximetry (%) 99 Oxygen Delivery Method room air Intake Visit Reasons: Abdominal pain Chief Complaint: abdominal pain/scopes Is patient in pain?: No Allergies adhesive tape Allergy (Mild, Verified 07/13/25 16:24) RashIodinated Contrast Media Allergy (Unknown, Verified 07/13/25 16:24) Itching Medications ???Medication ???Instructions ???Recorded ???Confirmed ???Type amiloride 5 mg tablet 10 mg PO BID 02/16/22 07/13/25 History clonidine HCl 0.1 mg tablet 0.1 mg PO TID hypertensive 05/22/22 07/13/25 Histo ry emergency fluoxetine 10 mg capsule 10 mg PO BID 07/13/25 07/13/25 History hydralazine 50 mg tablet 50 mg PO TID 07/13/25 07/13/25 History omeprazole 40 mg capsule,delayed 40 mg PO QDAY #30 caps 07/13/25 07/13/25 Rx release verapamil 180 mg tablet,extended [...] 15:03 by Rosanne De Santiago) Father Heart diseaseGrandfather Heart diseaseMaternal Grandmother Breast cancer Social History household members: [...] Yes diarrhea, Yes constipation, Yes blood in st (more content not included)...[facility]09-08-2025 Evaluation note* Diagnosis Onset Date Resolution Status Admit Date Diarrhea acute July 13, 2025 2:47pm Weight loss, non-intentional acute July 13, 025 2:47pm Abdominal pain noneactive July 13, 2025 2:47pm [facility] Work Phone: 1(815) 793-291108-29-2025 Radiology Diagnostic study note [facility] Imaging Services [address] [place], [place] [address] Abdomen/Pelvis WITH Contrast MR#: [id number] Acct: [id number] Name: MALISSA ELLIOTT Rep #: [id number] : 1985 F 40 From: Faisal Lamb MD PCP: Dr. Marco A Marie MD Status: RE G CLI Study:Abdomen/Pelvis WITH Contrast Date of Ex am: 07/03/25 Exam# [id number] Ordering Dr: Maico Petty MD PROCEDURE: ABDOMEN/PELVIS [...] seen in the rectosigmoid colon. [place] Location: [id number] CC: Dr. Marco A Marie MD; Dr. Maico Petty MD ~ Exposure Machine Operator: Signed [facility]07-19-2025 Hospital Discharge instructions Patient Education 05/23/2025 00:12:41 [...] the signs of a serious problem take moretime to appear. Many problems not related to [...] Swelling, pain or redness in one leg [phone] [employer]. [address] [place] [address]. All rights reserved. This information is not intended as a substitute for professional medical care. Always follow yourhealthcare professional's instructions. Follow Up Care 2025 22:11:07 With:MARCO A MARIE Address: [address] [phone] [facility] (1) When:2-4 days Comments:Follow-up closely with your doctor, return if any worsening or concerning symptoms as discussed. [facility] 07-19-2025 Emergency department Discharge summary Discharge Instructions Thank you for allowing [facility] to assist you with your healthcare needs. The following is importantdischarge information regarding your hospital visit. Diagnosis from Today's Visit Chest pain What to Do Next Instructions from Your Care Team No qualifying data available. Post Acute Orders No qualifying data available. You Need to Schedule the Following Appointments Follow Up with MARCO A MARIE When:Within 2-4 days Where:[facility] [address] [phone] [facility] (1) Additional Information: Follow-up closely with your [...] the signs of a serious problem take moretime to appear. Many problems not related to [...] Swelling, pain or redness in one leg [phone] [employer]. [address] [place] [address]. All rights reserved. This information is not intended as a substitute for professional medical care. Always follow yourhealthcare professional's instructions. Additional Information VACCINATE! IT SAVES LIVES! Members of the community who have not yet received the COVID-19 vaccine and would like to receive it can visit one of [facility] vaccine clinics. There are many vaccine clinic locations within the [facility]. For locations and available times, please visit www.gettheshot.coronavirus.[place].gov/. It is important to note that some COVID mobile vaccine clinics are held outdoors and may be canceled in rainy or stormy conditions. To learn more about pediatric vaccinations (ages 5-11), we invite you to visit the [facility] webpage. https://www.[facility].org/pages/7899-Wpdso-Ceqjfxzfatb-Ecvybkhpoe-Bbbee-Ifv stions.htmlTo learn more about the COVID-19 vaccine, we invite you to visit the CDC website for a list of frequently asked questions. https://www.cdc.gov/coronavirus/2019-ncov/vaccines/faq.html [facility] Patient Portal Access Instructions: Stay connected with your healthcare team and access your personal medical information anytime with the [facility] Patient Portal. If you would like a full copy of your medical records please contact the [facility] Medical Records Department Sunday through Sunday between 8a.m. and 4:30p.m. Please follow the directions below to access the portal: 1.Access the email account you provided upon registration to the [facility].2.Look for an invitation email from [facility].3.Open the email and access the invitation link: Accept Invitation to [facility]4.Fill in the required nova to create your account. Sign into www.[employer] with your username and password that you [...] you will allow to register on the [facility] Patient Portal for access to your information. You can also access the [facility] Patient Portal on the [employer] michael. Simply click on Health Records under [employer] and then click on the [employer] logo. HOW TO SAFELY DISPOSE OF PRESCRIPTION [...] Call your local pharmacy or go to http://bit.ly/4S4Hv6t to find one close to you.3.Make use of household items: Use cat litter or old coffee grounds to dispose medications if other options arenot available. Mix your drugs with these household products, seal them in an airtight container andthrow it into the garbage. Call [facility]: [phone] to be sure your drugs can be [...] aware that I should contact my doctor. Patient/Chief Program Officer Signature: Date/Time: Relationship to Patient: Witness Name/Signature: Date/Time: [place] [address]-18-2025 Note* Exam Date Time Procedure Performing Provider Status 05/22/25 10:48 PM XR Chest 1 View RODO VILLAREAL MD; Auth (Verified) [id number] ORIGINAL EXAMINATION: ONE XRAY VIEW OF THE [...] 2025 11:05:48 PM Ordering Provider: CARINE BARRAZA [place] [address]-18-2025 Note* Exam Date Time Procedure Performing Provider Status 05/22/25 10:19 PM EKG [ED AO] - CV CARINE BARRAZA MD; Auth (Verified) ECG Final Report Sinus rhythm Electronic Signature: CARINE BARRAZA MD 2025 22:25:53 [place] [address]-02-2025 NoteLeft heel tingling Patient is a pleasant [...] AUTHENTICATED BY CM COBIAN JR., ON 05/06/2025 15:50:47[facility]07-02-2025 History of Present illness Narrative* Cm Cobian Jr., LUTHER - 05/06/2025 3:48 PM EDT Left heel [...] or in the fall. documented in this [id number] NoteStatus post left foot plantar fasciotomy date [...] AUTHENTICATED BY CM COBIAN JR., ON 02/20/2025 15:36:42[facility]04-18-2025 History of Present illness Narrative* Cm Cobian [...] months for long-term follow-up. documented in this [id number] Instructions* Patient Instructions* Cm Cobian Jr., DPM - 02/20/2025 3:28 PM EDT Vitamin E. Oil cross tissue massaging. 5 minutes 2-3 times per day documented in this [id number] NoteStatus post left foot plantar fasciotomy date [...] AUTHENTICATED BY CM COBIAN JR., ON 02/13/2025 16:23:21[facility]04-11-2025 History of Present illness Narrative* Cm Cobian [...] improved. Continue cam boot. documented in this [id number] NoteStatus post left foot plantar fasciotomy date [...] AUTHENTICATED BY CM COBIAN JR., ON 02/06/2025 11:14:[address] [place], [place] [address]194504-04-2025 History of Present illness Narrative* Cm Cobian [...] titrate from cam boot. documented in this [id number] NoteStatus post left foot plantar fasciotomy date [...] AUTHENTICATED BY CM COBIAN JR., ON 01/30/2025 14:17:14[facility]03-28-2025 History of Present illness Narrative* Cm Cobian [...] check. And suture removal. documented in this [id number] Radiology Diagnostic study note [facility] Imaging Services [address] [place] [address] Brain/Head without Contrast MR#: [id number] Acct: [id number] Name: MALSISA ELLIOTT Rep #: [id number] : 1985 F 39 From: Thomas Dacosta MD PCP: Dr. Marco A Marie MD Status: RE G CLI Study:Brain/Head without Contrast Date of Exa m: 01/29/25 Exam# [id number] Ordering Dr: Marco A Marie MD PROCEDURE: [...] mass effect or midline shift. Reading Location: [id number] CC: Dr. Marco A Marie MD ~ Exposure Machine Operator: Signed [facility]03-21-2025 NoteStatus post left foot plantar fasciotomy date of surgery 3. Patient is a pleasant 39-year-old female status [...] AUTHENTICATED BY CM COBIAN JR., ON 01/23/2025 08:55:01[facility]03-21-2025 History of Present illness Narrative* Cm Cobian Jr., DPM - 01/23/2025 8:52 AM EDT Status post [...] week for postop check. documented in this [id number] NoteCalled patient postoperatively to make sure she is doing well. Overall doing fine. Is having more pain than expected and had to get a set of crutches to get around and set of weightbearing in the boot. Follow-up in 2 days at original appointment time. AUTHENTICATED BY CM COBIAN JR. ON 01/21/2025 16:52:14[facility]03-19-2025 History of Present illness Narrative* Cm Cobian Jr., DPM - 01/21/2025 4:51 PM EDT Called patient postoperatively to make sure she is doing well. Overall doing fine. Is having more pain than expected and had to get a set of crutches to get around and set of weightbearing in the boot. Follow-up in 2 days at original appointment time. 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 documented in this [id number] NotePre-Operative H&P Assessment and Plan Plantar fasciitis Pt scheduled to undergo a left foot plantar fasciotomy with Dr. Cobian on 01/19/2025. 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 BP is well controlled at this office visit, 127/85. Continue medical therapy as prescribed. Malissa does report being told after a previous surgery that she had high blood pressure. This was done at [facility]. I will call and get anesthesia records [...] recorded during her emergency room visit at [facility] and even in hindsight, with the results [...] indicates a less than 1% risk of WI or cardiac arrest, intraoperatively or up to [...] Juan J's syndrome TIA (transient ischemic attack) [facility] - 2006 No past medical history [...] person, place, and time. (more content not included)...[facility]03-04-2025 History of Present illness Narrative* Cheri Valente, CLEANER AND PREPARER - 01/06/2025 4:52 PM EST Pre-Operative H&P [...] high blood pressure. This was done at [facility]. I will call and get anesthesia records [...] recorded during her emergency room visit at [facility] and even in hindsight, with the results [...] indicates a less than 1% risk of WI or cardiac arrest, intraoperatively or up to [...] Juan J's syndrome TIA (transient ischemic attack) [facility] - 2006 No past medical history [...] above. Workstation ID: [id number] documented in this [id number] Evaluation + Plan note* Assessment & Plan Note - Cheri Valente CNP - 01/06/2025 4:51 PM EST Associated Problem(s): Pre-op examination FERNANDEZ score indicates a less than 1% risk of WI or cardiac arrest, intraoperatively or up to [...] conditions appear stablefor surgery at this time. [id number] Miscellaneous Notes* Assessment & Plan Note - Cheri Valente CNP - 01/06/2025 4:51 PM ESTAssociated Problem(s): Pre-op examination FERNANDEZ score indicates a less than 1% risk of WI or cardiac arrest, intraoperatively or up to [...] recorded during her emergency room visit at [facility] and even in hindsight, with the results [...] high blood pressure. This was done at [facility]. I will call and get anesthesia records to be scanned into the chart. * Assessment & Plan Note - Cheri Valente CNP - 01/06/2025 4:35 PM EST Associated Problem(s): Plantar fasciitis Pt scheduled to undergo a left foot plantar fasciotomy with Dr. Cobian on 01/19/2025. documented in this [id number] Evaluation + Plan note* Assessment & Plan Note - Cheri Valente CNP - 01/06/2025 4:50 PM EST Associated Problem(s): TIA (transient ischemic attack) 2006. Unknown etiology. No issues since. 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 BP is well controlled at this office visit, 127/85. Continue medical therapyas prescribed. Malissa does report being told after a previous surgery that she had high blood pressure. This was done at [facility]. I will call and get anesthesia records to be scanned into the chart. [id number] Evaluation + Plan note* Assessment & Plan Note - Cheri Valente CNP - 01/06/2025 4:35 PM ESTAssociated Problem(s): Plantar fasciitis Pt scheduled to undergo a left foot plantar fasciotomy with Dr. Cobian on 01/19/2025. [id number] Instructions* Patient Instructions* Cheri Valente CNP - [...] medications that contain aspirin, such as Irlanda Huntington, Pepto-Bismol, Anacin), antiinflammatory medications such as Advil, Motrin, Ibuprofen, Naproxen, Aleve, Irlanda Huntington, Pepto-Bismol, Anacin, Diclofenac, Voltaren, Daypro, Etodolac, Ketoprofen, Piroxicam, Relafen, Nabumetone, etc. Also disc ontinue Vitamin C, Vitamin E, Clemons-3 Fatty Acid, Fish Oil or Lovaza, and [...] them to the hospital. Patient Instructions for [facility]: Prior to surgery: Surgeon's office will contact you with the scheduled time of your surgery. You may use the Equipment Operator/Laborer/Supervisor parking available at the Main Entrance One [...] any makeup or lotions. Remove all nail albanian for surgeries involving extremities. Please remember to bring both your insurance card and a photo ID with you on the day of surgery. After your surgery: If you are having outpatient surgery - you must have a licensed cab driver to take you home. The expectation is that this cab driver will remain at the hospital for the duration of your procedure. You are advised to have a family member with you for at least 24 hours after being under Anesthesia. If you have sleep apnea and have a CPAP/BIPAP mask, please bring it with you the day of surgery. documented in this [id number] NoteLeft heel pain Patient is a pleasant [...] AUTHENTICATED BY CM COBIAN JR., ON 12/24/2024 16:58:13[facility]02-19-2025 History of Present illness Narrative* Cm Cobian Jr., DP - 12/24/2024 4:36 PM EST Left heel [...] antibiotics and DVT prophylaxis. documented in this [id number] NoteLeft foot pain Patient is a pleasant [...] AUTHENTICATED BY CM COBIAN JR., ON 12/05/2024 [facility] History of Present illness Narrative* Cm Cobian Jr., DP - 12/05/2024 4:50 PM EST Left foot [...] in the coming weeks. documented in this [id number] Evaluation note* Diagnosis Onset Date Resolution Status Admit Date Postop check noneactive October 3:18pm [facility] Work Phone: 1(717) 572-837611-19-2024 [facility] Medical Records Department [address] [place] [address] History Physical Exam 09/23/24 1226 MR#: [id number] Acct: [id number] Name: MALISSA ELLIOTT BRIANNA Rep #: [id number] : 1985 39 From: Samara Canas MD PCP: Dr. Marco A Marie MD Status:[facility] Location: [place] [address] History and Physical [facility]'s [address], [address] [place] [address] OFFICE VISIT Date of Service: 09/10/24 MR#: [id number] Acct: [id number] Name: MALISSA ELLIOTT BRIANNA Rep #: [id number] : 1985 Provider: Dr. Samara Canas MD Age/Sex: 39/F Location: [facility] Status: Signed Intake Vital Signs 08/04/2409:49 09/10/2414:04 09/10/2414:10 Height 5 ft 7 in 5 ft 7 in Weight: 185 lb BMI 29.0 BP 149/98 H 137/97 H Intake Visit Reasons: surgical consult per Shiatsu Therapist Required: No Is patient in pain?: Yes [...] J's syndrome PSVT (paroxysmal supraventricular tachycardia) WPW (Giilr-Qtcgqiktg-Jvped syndrome) Hypertensive heart disease without HF (heart [...] Nutritional Appearance: average body habitus Orientation: alert HENMT Head: normal to inspection and normocephalic Neck Neck: normal visual inspection and trachea midline Thyroid: thyroid normal Resp Effort Inspection: normal respiratory effort GI Inspection: normal to inspection and non-distended Palpation: soft and no hepatosplenomegaly General: bladder normal to palpation External Female Exam: normal external appearance and no (more content not included)...[facility]09-06-2024 Hospital Discharge instructions Patient Education 07/11/2024 [...] cold can help reduce redness and swelling. 5470-[address] [employer] [place] [address]. All rights reserved. This information is not intended as a substitute for professional medical care. Always follow yourhealthcare professional's instructions. Follow Up Care 07/11/2024 10:26:44 With:MARCO A MARIE MD Address: [address] [phone] When:2-4 days [facility] 09-06-2024 Note Discharge Instructions Thank you for allowing [facility] to assist you with your healthcare needs. [...] MD When:Within 2-4 days Where:[address] [phone] Allergies Contrast dye Medications Please ask your [...] Medication Leaflets acetaminophen and oxycodone (a SEET michael MIN oh fen and OX i KOE [...] signs of an allergic reaction: hives; difficulty breathing; swelling of your face, lips, tongue, [...] may report side effects to FDA at 7-097-TUP-6215. What other drugs will affect acetaminophen and [...] affect acetaminophen and oxycodone, including prescription and cbgd-lxf-owhaxwf medicines, vitamins, and herbal products. Not all [...] to ensure that the information provided by [employer]. ('Mult[employer]') is accurate, up-to-date, and complete, but no guarantee is made to that effect. Drug information contained herein may be time sensitive. Work[employer] information has been compiled for use by healthcare practitioners and consumers in the [place] and therefore [employer] does not warrant that uses outside of the [place] are appropriate, unless specifically indicated otherwise. [employer] drug information does not endorse drugs, diagnose patients or recommend therapy. [employer] drug information isan informational resource designed to [...] effective or appropriate for any given patient. [employer] does not assume any responsibility for any aspect of healthcare administered with the aid of information [employer] provides. The information contained herein is not intended to cover all possible uses, directions, precautions, warnings, drug interactions, allergic reactions, or adverse effects. If you have questions about the drugs you are taking, check with your doctor, nurse or pharmacist. Copyright 7154-4226 [facility] [employer]. Version: 22.. Revision Date: 06/07/2023. Education Materials Bruises (Contusions) [...] cold can help reduce redness and swelling. 3846-5093 [employer]. [address] [place] [address]. All rights reserved. This information is not intended as a substitute for professional medical care. Always follow yourhealthcare professional's instructions. Additional Information VACCINATE! IT SAVES LIVES! Members of the community who have not yet received the COVID-19 vaccine and would like to receive it can visit one of [facility] vaccine clinics. There are many vaccine clinic locations within the [facility]. For locations and available times, please visit www.gettheshot.coronavirus.[place].gov/. It is important to note that some COVID mobile vaccine clinics are held outdoors and may be canceled in rainy or stormy conditions. To learn more about pediatric vaccinations (ages 5-11), we invite you to visit the [facility] webpage. https://www.[facility].org/pages/1071-Xdaef-Ynsmrmjwlha-Mmrqorfvmn-Xztuo-Vli stions.htmlTo learn more about the COVID-19 vaccine, we invite you to visit the CDC website for a list of frequently asked questions. https://www.cdc.gov/coronavirus/2019-ncov/vaccines/faq.html [facility] Patient Portal Access Instructions: Stay connected with your healthcare team and access your personal medical information anytime with the [facility] Patient Portal. If you would like a full copy of your medical records please contact the [facility] Medical Records Department Sunday through Sunday between 8a.m. and 4:30p.m. Please follow the directions below to access the portal: 1.Access the email account you provided upon registration to the hospital.2.Look for an invitation email from [facility].3.Open the email and access the invitation link: Accept Invitation to [facility]4.Fill in the required nova to create your account. Sign into [email or web address] with your username and password that you [...] you will allow to register on the [facility] Patient Portal for access to your information. You can also access the [facility] Patient Portal on the [employer]. Simply click on Health Records under [employer] and then click on the [facility] logo. [...] Call your local pharmacy or go to http://Technisys.Forseva/7S1No4f to find one close to you.3.Make use of household items: Use cat litter or old coffee grounds to dispose medications if other options arenot available. Mix your drugs with these household products, seal them in an airtight container andthrow it into the garbage. Call [facility]: [phone] to be sure your drugs can be [...] aware that I should contact my doctor. 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 documented in this [id number] History of Present illness Narrative* Cm Cobian [...] to discontinue cam boot. documented in this [id number] History of Present illness Narrative* Cm Cobian [...] be and doing well. documented in this [id number] History of Present illness Narrative* Cm Cobian [...] to discontinue cam boot. documented in this [id number] History of Present illness Narrative* Cm Cobian [...] differential and treatment plan. documented in this [id number] Hospital Discharge instructions Patient Education 10/03/2023 07:50:11 [...] and water are not available, use alcohol-based transit planning director to keep from spreading the infection to [...] Yellow color of the eyes or skin 7989-9835 [employer]. [address] [place] [address]. All rights reserved. This information is not intended as a substitute for professional medical care. Always follow yourhealthcare professional's instructions. Follow Up Care 10/03/2023 06:42:49 With:MARCO A MARIE Address: [address] [phone] Business (1) When:2-4 days Comments:Follow-up as needed if symptoms persist.Start with clear liquid diet and slowly advance as tolerated.Use Tylenol or Advil for fever and discomfort as needed.May use lajz-fvr-ckdvcid antacids like Maalox, Mylanta or Tums as needed for upset stomach.Use Zofran as prescribed for nausea and vomiting as needed.Return to the ED if symptoms worsen. [facility] 11-29-2023 Note Discharge Instructions Thank you for allowing [facility] to assist you with your healthcare needs. [...] fever and discomfort as needed. May use mfzq-jmf-tbcmoof antacids like Maalox, Mylanta or Tums as needed for upset stomach. Use Zofran as prescribed for nausea and vomiting as needed. Return to the ED if symptoms worsen. Where: [address] [place] [phone] Business (1) Allergies NKA Medications Please ask [...] or retail pharmacies. Medication Leaflets ondansetron (oral) (deann jaramillo) What is the most important information [...] may report side effects to FDA at 5-853-SFJ-7746. What other drugs will affect ondansetron? Ondansetron [...] interact with ondansetron. This includes prescription and dumw-vhg-fquscnp medicines, vitamins, and herbal products. Give a [...] to ensure that the information provided by [employer]. ('[employer]') is accurate, up-to-date, and complete, but no guarantee is made to that effect. Drug information contained herein may be time sensitive. [employer] information has been compiled for use by healthcare practitioners and consumers in the [place] and therefore [employer] does not warrant that uses outside of the [place] are appropriate, unless specifically indicated otherwise. Kom[employer] Gam[employer] drug information does not endorse drugs, diagnose patients or recommend therapy. Multum's drug information isan informational resource designed to [...] effective or appropriate for any given patient. [facility] does not assume any responsibility for any aspect of healthcare administered with the aid of information [facility] provides. The information contained herein is not intended to cover all possible uses, directions, precautions, warnings, drug interactions, allergic reactions, or adverse effects. If you have questions about the drugs you are taking, check with your doctor, nurse or pharmacist. Copyright 5701-9345 [facility] [employer]. Version: 16.. Revision Date: 06/07/2023. Education Materials [...] and water are not available, use alcohol-based transit planning director to keep from spreading the infection to [...] Yellow color of the eyes or skin 3567-4299 [employer]. [address] [place] [address], [place] [address]. All rights reserved. This information is not intended as a substitute for professional medical care. Always follow yourhealthcare professional's instructions. Additional Information VACCINATE! IT SAVES LIVES! Members of the community who have not yet received the COVID-19 vaccine and would like to receive it can visit one of [facility] vaccine clinics. There are many vaccine clinic locations within the [facility]. For locations and available times, please visit www.gettheshot.coronavirus.[place].gov/. It is important to note that some COVID mobile vaccine clinics are held outdoors and may be canceled in rainy or stormy conditions. To learn more about pediatric vaccinations (ages 5-11), we invite you to visit the [facility] webpage. https://www.Socialances.org/pages/1436-Elbbn-Pxuygttxslk-Wysflunjqw-Nsvml-Qxn stions.htmlTo learn more about the COVID-19 vaccine, we invite you to visit the CDC website for a list of frequently asked questions. https://www.cdc.gov/coronavirus/2019-ncov/vaccines/faq.html [facility] Patient Portal Access Instructions: Stay connected with your healthcare team and access your personal medical information anytime with the [facility] Patient Portal. If you would like a full copy of your medical records please contact the [facility] Medical Records Department Sunday through Sunday between 8a.m. and 4:30p.m. Please follow the directions below to access the portal: 1.Access the email account you provided upon registration to the hospital.2.Look for an invitation email from [facility].3.Open the email and access the invitation link: Accept Invitation to [facility]4.Fill in the required nova to create your account. Sign into [email or web address] with your username and password that you [...] you will allow to register on the [facility] Patient Portal for access to your information. You can also access the [facility] Patient Portal on the [employer]. Simply click on Health Records under HealthData and then click on the [facility] logo. [...] Call your local pharmacy or go to http://Technisys.Forseva/9R0Im9e to find one close to you.3.Make use of household items: Use cat litter or old coffee grounds to dispose medications if other options arenot available. Mix your drugs with these household products, seal them in an airtight container andthrow it into the garbage. Call [facility]: [phone] to be sure your drugs can be [...] aware that I should contact my doctor. Patient/Chief Program Officer Signature: Date/Time: Relationship to Patient: Witness Name/Signature: Date/Time: [facility]02-25-2023 NoteHNO ID: [id number] Author: Jim Plaza MD Service: ? Author [...] PAST MEDICAL HISTORY Diagnosis Date Hypertension Overweight(278.02) Roqbp-Dbesgnqmx-Xielv (WPW) pattern MEDICATIONS: Current Outpatient Medications Medication [...] TABLET Plans to follow-up with dentist. Jim Plaza, [facility]02-25-2023 History of Present illness Narrative* Jim [...] PAST MEDICAL HISTORY Diagnosis Date Hypertension Overweight(278.02) Inuhb-Qhwwmkpcp-Yamwz (WPW) pattern MEDICATIONS: Current Outpatient Medications Medication [...] dentist. Jim Plaza MD [facility] Plan note Assessment and Plan from 09/21/2022 5:21 PM: * Why You Were Here: Left-sided thoracic outlet syndrome. * Brief Discharge Plan: Normal postoperative course. Pain medication as needed. [facility] 11-17-2022 Hospital Discharge instructions Activity on [...] Has Patient had Chest Pain or an WI during this Visit? : No * It [...] : Dry dressing to incision as needed. 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 [facility] Work Phone: [phone] History and physical note* Alanna Carvalho PA-C - 08/15/2022 9:45 AM EDT Images from the original note were not included. Malissa Elliott is a 37 y.o. female [facility] consultation for evaluation of [...] in arms and face, blurred vision WPW (Canqg-Tatpqolub-Amcgt syndrome) 02/2014 Past Surgical History: Procedure Laterality [...] see my separate note. [facility] History of Present illness Narrative* Jovita Carlos [...] things arenot going well. documented in this [facility]10-11-2022 Instructions* Patient Instructions* Valeria Pinon RN - [...] o Mimic work-related activities [facility] History of Present illness Narrative* Kayleen Coffman RN - 03/02/2021 3:00 PM EDT Bubble study performed x 1 at request of Brianna Tao. Patient tolerated well, IV dc'd, patient discharged home. Samara Coffman RN documented in this [facility] Work Phone: Consult note Author Jamel Silva [facility] Note Date/Time July 15, 2025 10:12am [facility] Medical Records Department [address] [place] [address] Anesthesia Postop Eval I 07/15/25 1011 MR#: [id number] Acct: [id number] Name: MALISSA ELLIOTT Rep #:[id number] : 1985 40 From: Jamel Silva PCP: Dr. Marco A Marie MD Status: G [facility] [place] Race: C Location: [place] [address] Anesthesia: Postop Eval I Current Vital Signs Temperature: 97.8 F Pulse Rate: 86 Blood Pressure: 118/89 Respiratory Rate: 18 Pulse Ox: 99 Oxygen Delivery Method: Room Air Assessment Airway patent: Yes Spontaneous unlabored respirations: Yes Mental status: Asleep nausea: No Vomiting: No Anesthesia Complication: No Fluid Hydration Crystalloid volume administer (ml): 600 Total IV fluid infused: 600 Progress Note Anesthesia document: Postop Eval 1 completed: Yes 07/15/25 1012 <Electronically signed by Jamel Silva > Date _ Jamel Canales Signature: Date CC: ~ Signed [facility] Work Phone: Consult note Author Tremaine Do [facility] Note Date/Time July 15, 2025 10:42am [facility] Medical Records Department [address] [place] [address] Anesthesia Postop Eval II 07/15/25 1037 MR#: [id number] Acct: [id number] Name: MALISSA ELLIOTT Rep #:[id number] : 1985 40 From: Tremaine Rivera PCP: Dr. Marco A Marie MD Status:RE G SDC Y Race: C Location: [address] Anesthesia Postop Eval I Sum Postop Eval Completion status Anesthesia document: Postop Eval 1 completed: Yes Anesthesia Postop Eval I Summary Anesthesia Postop Eval I Summary: Anesthesia Postop Eval I: Assessment Summary Airway patent Yes 07/15/25 10:12 [email or web address] Spontaneous unlabored Yes 07/15/25 10:12 [email or web address] respirations Mental status Asleep 07/15/25 10:12 [email or web address] nausea No 07/15/25 10:12 [email or web address] Vomiting No 07/15/25 10:12 [email or web address] Anesthesia Postop Eval I: Fluid Summary Crystalloid volume administer 600 07/15/25 10:12 [email or web address] (ml) Colloids volume administered ( ml) Blood Product volume administered (ml) Total IV fluid infused 600 07/15/25 10:12 [email or web address] Anesthesia Postop Eval I: Summary Notes Anesthesia Complication No 07/15/25 10:12 [email or web address] Anesthesia Complication Comment: Post-operative progress note Anesthesia: Postop Eval II Evaluation Mental status: Awake and Calm Pain Level: 1 nausea: No Vomiting: No Complications Anesthesia Complication: No 07/15/25 1037 <Electronically signed by Tremaine Do MD> Date _ Tremaine Do MD Cosigner Signature: Date CC: ~ Signed [facility] Work Phone: Evaluation + Plan note No data available for this section [facility] Evaluation + Plan note [facility] Evaluation note* Diagnosis Onset Date Resolution Status Essential hypertension acute Mixed hyperlipidemia acute WPW (Jlhlh-Cnsvgoysf-Pavxx syndrome) [facility] Work Phone: Evaluation note* Diagnosis 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 Other secondary hypertension, benign Hypokalemia Hypopotassemia Juan J's syndrome Glucocorticoid-remediable aldosteronism [facility] Left hand pain- Primary Pain in limb [facility] Diagnosis Onset Date Resolution Status Essential hypertension acute WPW (Rjqed-Jafmfbsus-Yyhel syndrome) acute [facility] Work Phone: Evaluation note* Diagnosis Dental infection- Primary Acute apical periodontitis of pulpal origin [facility] noteNo assessment information availableWMagruder Hospital Work Phone: Evaluation note* Diagnosis Plantar fasciitis- Primary Plantar fascial fibromatosis [facility] Diagnosis Plantar fasciitis- Primary Plantar fascial fibromatosis [facility] Plantar fasciitis- Primary Plantar fascial fibromatosis [facility] Diagnosis Plantar fasciitis- Primary Plantar fascial fibromatosis Left foot pain Pain in soft tissues of limb [facility] Diagnosis Plantar fasciitis- Primary Plantar fascial fibromatosis Left foot pain Pain in soft tissues of limb Plantar fasciitis Plantar fascial fibromatosis Left foot pain Pain in soft tissues of limb [facility] Diagnosis Plantar fasciitis Plantar fascial fibromatosis [...] tissues of limb [facility] Diagnosis Plantar fasciitis Plantar fascial fibromatosis [...] tissues of limb [facility] Diagnosis Pre-op examination- Primary Plantar fasciitis Plantar fascial fibromatosis Left foot pain Pain in soft tissues of limb Juan J's syndrome Glucocorticoid-remediable aldosteronism Cardiac arrhythmia, unspecified cardiac arrhythmia type TIA (transient ischemic attack) Unspecified transient cerebral ischemia Plantar fasciitis- Primary Plantar fascial fibromatosis Left foot pain Pain in soft tissues of limb [facility] Diagnosis Pre-op examination- Primary Plantar fasciitis Plantar fascial fibromatosis Left foot pain Pain in soft tissues of limb Juan J's syndrome Glucocorticoid-remediable aldosteronism Cardiac arrhythmia, unspecified cardiac arrhythmia type TIA (transient ischemic attack) Unspecified transient cerebral ischemia Plantar fasciitis- Primary Plantar fascial fibromatosis Left foot pain Pain in soft tissues of limb [facility] Diagnosis Pre-op examination- Primary Plantar fasciitis Plantar fascial fibromatosis Left foot pain Pain in soft tissues of limb Juan J's syndrome Glucocorticoid-remediable aldosteronism Cardiac arrhythmia, unspecified cardiac arrhythmia type TIA (transient ischemic attack) Unspecified transient cerebral ischemia Left foot pain- Primary Pain in soft tissues of limb [facility]* Diagnosis Pre-op examination- Primary Plantar fasciitis Plantar fascial fibromatosis Left foot pain Pain in soft tissues of limb Juan J's syndrome Glucocorticoid-remediable aldosteronism Cardiac arrhythmia, unspecified cardiac arrhythmia type TIA (transient ischemic attack) Unspecified transient cerebral ischemia Plantar fasciitis- Primary Plantar fascial fibromatosis Left foot pain Pain in soft tissues of limb [facility] Diagnosis Pre-op examination- Primary Plantar fasciitis Plantar fascial fibromatosis Left foot pain Pain in soft tissues of limb Juan J's syndrome Glucocorticoid-remediable aldosteronism Cardiac arrhythmia, unspecified cardiac arrhythmia type TIA (transient ischemic attack) Unspecified transient cerebral ischemia Plantar fasciitis- Primary Plantar fascial fibromatosis [facility]* Diagnosis Pre-op examination- Primary Plantar fasciitis Plantar fascial fibromatosis Left foot pain Pain in soft tissues of limb Juan J's syndrome Glucocorticoid-remediable aldosteronism Cardiac arrhythmia, unspecified cardiac arrhythmia type TIA (transient ischemic attack) Unspecified transient cerebral ischemia Left foot pain- Primary Pain in soft tissues of limb Plantar fasciitis Plantar fascial fibromatosis [facility] encounter [facility]* Diagnosis Onset Date Resolution Status Admit Date Abdominal pain noneactive July 13, 2025 2:47pm [facility] Work Phone: [facility] Narrative* Course of treatment during hospitalization: : Left 1st rib resection. * Course of treatment during hospitalization: : Left 1st rib resection. [facility] Hospital Discharge instructions No data available for this section [facility] Hospital Discharge instructions Chest Pain/Heart Attack Information from 09/21/2022 5:20 PM: * Has Patient had Chest Pain or an WI during this Visit? : No * It [...] to do when you leave the hospital [facility] Progress note No data available for this section [facility] Reason for referral (narrative)No reason for referral information availableWMagruder Hospital Work Phone: Assessments Diagnosis Ventricular tachycardia (HCC) Paroxysmal ventricular tachycardia Advance Directives No Advanced Directives Records FoundDocuments on File Type Date Recorded Patient Chief Program Officer Expl anation ACP-Advance Directive ACP-Power of Pressure Sealer And Tester Advance Directive Response Recorded Date/ Time Living Will No May 30, 2021 11:35am Power of Pressure Sealer And Tester No May 30 11:35am Advance Directive Response Recorded Date/ Time Living Will No March 26, 2022 1 0:40pm Power of Pressure Sealer And Tester No March 26, 2022 10:40pm Latest Code Status on File Code Status Date Activated Date Inactivated Comments Full Code-Unverified 05/27/2014 4:34 PM 05/27/2014 10:51 PM Advance Directive Response Recorded Date/ Time Living Will No March 26, 2022 9 :40pm Power of Pressure Sealer And Tester No March 26, 2022 9:40pm Advance Directive Response Recorded Date/ Time Do you have a Healthcare Power of Pressure Sealer And Tester? 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 (Dpbue-Gvdzwqman-Hiqjv syndrome) Chief Complaint HIP AND KNEE PAIN [...] 2025 2:47pm Reason for Visit Admit Date Diarrhea July 13, 2025 2:47pm Weight loss, non-intentional July 132024 2:47pm Abdominal pain July 13, 2025 2:47pm Reason for Referral Specialty Diagnoses / Procedures Referred By Andrea esqueda Referred To Contact Lab Diagnoses 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 Sendout: Hypokalemia and Related Disorders [place] [address] Referral ID Status Reason Start Date Expiration Date V isits Requested Visits Authorized [id number] Open Specialty Services Required 07/19/2022 07/19/2023 1 1 Specialty Diagnoses / Procedures Referred By Andrea t Referred To Contact Diagnoses Left hand pain Jovita Carlos MD [address] [address] Referral ID Status Reason Start Date Expiration Date V isits Requested Visits Authorized [id number] New Request 08/15/2022 09/09/2023 1 1 Specialty Diagnoses / Procedures Referred By Andrea esqueda Referred To Contact Physical Therapy Diagnoses Left hand pain Jovita Carlos MD [address] [address] Referral ID Status Reason Start Date Expiration Date V isits Requested Visits Authorized [id number] New Request 08/15/2022 09/09/2023 1 1 Scheduling Instructions [facility] [address] [facility], [address] [place], [place] [id number] Fax [facility] (Neck and Back Therapy) [address] [place] [address] FAX [facility] [address] [address] FAX Outpatient [facility] Outpatient [facility] [address] [address] FAX [facility] [address] [place] [address] [place] [address] FAX Physical Therapy at [address] [phone] FAX [facility] [address] [place], [place] [address] FAX Continued on next page Outpatient Rehabilitation Outpatient Care [address] [place] [address] FAX [facility] [address] [facility], [address] [place] [address] FAX Specialty Diagnoses / Procedures Referred By Contac t Referred To Contact Radiology Diagnoses Plantar fasciitis Left foot pain Procedures MR Foot Left Without Contrast Cm Cobian Jr., DPM [address] [place] [address] RADIOLOGY [address] [place] [address] Referral ID Status Reason Start Date Expiration Date V isits Requested Visits Authorized [id number] New Request 06/18/2024 06/18/2025 1 1 Additional Source Comments INFORMATION SOURCE (unrecogn ized section and content) DATE CREATED AUTHOR 03/08/[address] [facility] DATE CREATED AUTHOR AUTHOR'S ORGANIZ ATION 08/01/2022 [facility] DATE CREATED AUTHOR AUTHOR'S ORGANIZ ATION 08/16/2022 [facility] DATE CREATED AUTHOR AUTHOR'S ORGANIZ ATION 09/28/2022 [facility] DATE CREATED AUTHOR AUTHOR'S ORGANIZ ATION 12/31/2022 [facility] DATE CREATED AUTHOR AUTHOR'S ORGANIZ ATION 10/09/2023 [facility] ([place]) DATE CREATED AUTHOR AUTHOR'S ORGANIZ ATION 08/04/2024 [facility] DATE CREATED AUTHOR AUTHOR'S ORGANIZ ATION 01/18/2025 [facility] DATE CREATED AUTHOR AUTHOR'S ORGANIZ ATION 02/15/2025 [facility] DATE CREATED AUTHOR AUTHOR'S ORGANIZ ATION 05/09/2025 [facility] DATE CREATED AUTHOR AUTHOR'S ORGANIZ ATION 06/05/2025 [facility] DATE CREATED AUTHOR AUTHOR'S ORGANIZ ATION 08/31/2025 [facility] Goals (unrecognized section and content) Goals may [...] content) Specialty Diagnoses / Procedures Referred By Andrea esqueda Referred To Contact Lab Diagnoses 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 Specialty Diagnoses / Procedures Referred By Andrea esqueda Referred To Contact General Surgery Diagnoses TOS (thoracic outlet syndrome) Maico Petty MD [address] [place] [address] [facility] [address] [place] [address] Referral ID Status Reason Start Date Expiration Date V isits Requested Visits Authorized [id number] New Request 08/06/2022 08/31/2023 1 1 Reason [...] Care Teams (unrecognized sec tion and content) Header Up Relationship Specialty Start Date End Date Marco A Marie MD [address] [place] [address] PCP - General Family Medicine 07/19/22 [place] [address] Attending Physician Medical Clinical Genetics 07/19/22 Header Up Relationship Specialty Start Date End Date Zhao [...] MD Primary Care Provider Active Milly Perry [employer] Attending Provider Active Header Up Relationship Specialty Start Date End Date Marco A Marie MD [address] [place] [address] [address] [place] [address] PCP - General Endocrinology/Metabolism 06/30/23 Header Up Relationship Specialty Start Date End Date Marco A Marie MD [address] [place] [address] PCP - General Endocrinology/Metabolism 06/30/23 Team Status: Inactive Member Role Status Dates Dr. Marco A Marie MD Primary Care Provider, Attend ing Provider Active Header Up Relationship Specialty Start Date End Date Marco A Marie MD [address] [place] [address] [address] [place] [address] PCP - General Endocrinology/Metabolism 06/30/23 Header Up Relationship Specialty Start Date End Date Marco A Marie MD [address] [place] [address] [address] [place] [address] PCP - General Endocrinology/Metabolism 06/30/23 Header Up Relationship Specialty Start Date End Date Marco A Marie MD [address] [place] [address] [address] [place] [address] PCP - General Endocrinology/Metabolism 06/30/23 Header Up Relationship Specialty Start Date End Date Marco A Marie MD [address] [place] [address] [address] [place] [address] PCP - General Endocrinology/Metabolism 06/30/23 Header Up Relationship Specialty Start Date End Date Marco A Marie MD [address] [place] [address] [address] [place] [address] PCP - General Endocrinology/Metabolism 06/30/23 Header Up Relationship Specialty Start Date End Date Marco A Marie MD [address] [place] [address] [address] [place] [address] PCP - General Endocrinology/Metabolism 06/30/23 Header Up Relationship Specialty Start Date End Date Marco A Marie MD [address] [place] [address] [address] [place] [address] PCP - General Endocrinology/Metabolism 06/30/23 Header Up Relationship Specialty Start Date End Date Marco A Marie MD [address] [place] [address] [address] [place] [address] PCP - General Endocrinology/Metabolism 06/30/23 Header Up Relationship Specialty Start Date End Date Marco A Marie MD [address] [place] [address] [address] [place] [address] PCP - General Endocrinology/Metabolism 06/30/23 Team Status: Active Member Role Status Dates Dr. Marco A Marie MD Primary Care Provider Active Team Status: Inactive Member Role Status Dates Dr. Marco A Marie MD Primary Care Provider Active Start: October 14, 2024 End: October 14, 2024 Dr. Marco A Marie MD Referring Provider Active Start: October 14, 2024 End: October 14, 2024 Maddie Gaytan [employer], [employer] Attending Provider Active Start: October 14, 2024 [...] July 13, 2025 End: July 13, 2025 Team Status: Inactive Member Role/Relationship Status Dates Dr. Marco A Marie MD Primary Care Provider Active Start: July 15, 2025 End: July 15, 2025 Dr. Marco A Marie MD Referring Provider Active Start: July 15, 2025 End: July 15, 2025 Dr. Jessica Qureshi MD Attending Provider Active Start: July 15, 2025 End: July 15, 2025 Team Status: Active Member Role/Relationship Status Dates Dr. Marco A Marie MD Primary Care Provider Active Start: July 15, 2025 Dr. Marco A Marie MD Referring Provider Active Start: July 15, 2025 Dr. Jessica Qureshi MD Attending Provider Active Start: July 15, 2025 Dr. Jessica Qureshi MD Other Provider Active S tart: July 15, 2025 Care Team (unrecognized sect ion and content) Care Team Personnel Name: PHYSICIAN, NONE Position: Physician Member Role: Primary Care Physician Care Team Related Persons Name: THOMAS ELLIOTT Name: ROSANNE ELLIOTT Address: [facility] Address: [address] Source Comments (unrecognize d section and content) In the event this informatio n is protected by the Federal Confidentiality of Alcohol and Drug Abuse Patient Records regulations: The Federal rules restrict any use of the information to criminally investigate or prosecute any alcohol or drug abuse patient.[facility] FOR RECORDS PERTAINING TO PATIENTS WHO ARE [...] BE BASED ON THE PRIMARY CLINICAL RECORDS. [facility] blogfoster [facility]. provides no warranty or guarantee of the accuracy or completeness of information in this document.
== END | disposition home or self-care (01) ==
LOC: US 07:10
PROVIDERS: PCP Family Medicine; Referring Provider Family Medicine; Visit Provider Family Medicine
DX: R10.11 Right upper quadrant pain (principal)
CPT/HCPCS: 76705